=== PATIENT | female | born 1945 | race Caucasian/White ===

== ENCOUNTER 2019-03-16 06:00 | Outpatient (RCR) | payer MEDICARE, MEDICAID, SELFPAY | END 2019-04-15 00:01 | LOC: PULRHB 06:00 | PROVIDERS: Visit Provider Thoracic Surgery (Cardiothoracic Vascular Surgery) | DX: J44.9 Chronic obstructive pulmonary disease, unspecified (principal) | CPT/HCPCS: G0424 ×9 ==

== ENCOUNTER → 2019-04-15 | Outpatient (CLI) | payer MEDICARE, MEDICAID, SELFPAY | PROVIDERS: Visit Provider Orthopaedic Surgery | DX: Z46.89 Encounter for fitting and adjustment of other specified devices (principal); G56.02 Carpal tunnel syndrome, left upper limb | CPT/HCPCS: L3908 ==

== ENCOUNTER 2019-04-16 06:00 | Outpatient (RCR) | payer MEDICARE, MEDICAID, SELFPAY | END 2019-05-16 23:59 | disposition home or self-care (01) | LOC: PULRHB 06:00 | PROVIDERS: PCP Family Medicine; Visit Provider Thoracic Surgery (Cardiothoracic Vascular Surgery) | DX: J44.9 Chronic obstructive pulmonary disease, unspecified (principal) | CPT/HCPCS: G0424 ==

== ENCOUNTER → 2019-06-03 13:00 | Outpatient (BNVA) | payer MEDICARE, MEDICAID, SELFPAY | PROVIDERS: Visit Provider Nurse Practitioner | DX: F31.73 Bipolar disorder, in partial remission, most recent episode manic (principal); F17.211 Nicotine dependence, cigarettes, in remission | CPT/HCPCS: 99213 ==

== ENCOUNTER 2019-07-02 05:46 | Day surgery (SDC) | payer MEDICARE, MEDICAID, SELFPAY ==
[2019-07-01 13:33] VITALS: BMI 27.1
[2019-07-02 06:11] VITALS: BP 169/84; PULSE 64; RESP 18; TEMP 36.1; O2SAT 96
[2019-07-02] MEDS: sodium chloride 0.9% 1,000 ML 30 ML IV (06:15)
[2019-07-02 06:30] LABS: Glucose Point of Care 100 mg/dL (70-110)
--- NOTE | 2019-07-02 06:32 | ANES.PREANE2 ---
Pre-Anesthetic Assessment Pre-Anesthetic Assessment: Height/Weight: Height 1.7 m Weight 78.471 kg Temp Pulse Resp BP Pulse Ox 97 F L 64 18 169/84 96 07/02/19 06:11 07/02/19 06:11 07/02/19 06:11 07/02/19 06:11 07/02/19 06:11 Preop Diagnosis: Left carpal tunnel syndrome Proposed Procedure: Operation Date: 07/02/19 07:00 Proposed Procedures p Left Carpal Tunnel Release [id number] G56.00(Left) - Al Franco MD Last Intake: 22:00 Social: Social History: Tobacco Packs per day: 1 Pack years: 54 Comment: quit 7 months Exam: Pre-Anes Outpt Exam: alert, oriented x 3, clear to auscultation bilaterally and regular rate & rhythm Airway: Submandibular: WNL Cervical ROM: WNL MP: 1 Dentition: False Pulmonary: Pulmonary: COPD CV/HEM: CV/HEM: CAD Comments: stents x 2, last 2001 : Comments: frequency, urgwncy Metabolic: Metabolic: Thyroid Comments: replacement 5y increased 6m Neuropsych: Neuropsych: THOMAS Anesthetic Plan: ASA status: 3 Anesthesia: Regional (specify below) PFSH Anesthesia PFSH: Medical History (Updated 07/01/19 @ 14:48 by Madeline Greene) Bipolar disorder, in partial remission, most recent episode manic Nicotine dependence, cigarettes, in remission Social History Smoking and tobacco status: never smoked Data Anesthesia Other Labs: Laboratory Results - last 48 hr 07/02/19 06:27 POC Glucose 100 Cardiac Studies: No Data to Display
--- NOTE | 2019-07-02 06:58 | W.PM.OPSUD ---
Surgery/Procedure H&P Update DATE OF PROCEDURE: July 02, 2019 DATE H&P PERFORMED: 06/10/19 H&P UPDATE INFORMATION: I have reviewed H&P completed within last 30 days and No changes to prior documentation PREOP DIAGNOSIS: Left carpal tunnel syndrome PLANNED PROCEDURE: Operation Date: 07/02/19 07:00 Proposed Procedures p Left Carpal Tunnel Release [id number] G56.00(Left) - Al Franco MD
[2019-07-02] MEDS: clindamycin 600 MG/50 ML PREMIX 100 MG IV (07:04)
--- NOTE | 2019-07-02 07:47 | PM.OP ---
Operative Report Date of procedure: July 02, 2019 Pre-op Diagnosis: Left carpal tunnel syndrome Post-op diagnosis: same Anesthesia: Local ([place] block) Tourniquet time (min): 20 Findings: No masses or space-occupying lesions were seen within the left carpal tunnel Condition: stable Disposition: same day Procedure: Patient was taken to the operating room and anesthesia provided by the anesthesia service. She was prepped and draped with the arm exposed. A timeout was performed. A 3 cm long incision was made in line with the fourth ray from the distal edge of the carpal tunnel extending proximally. The subcutaneous fat and palmar fascia was divided with a scalpel blade. Under loupe magnification the ulnar neurovascular bundle was identified distally. A hemostat could be passed under the transverse carpal ligament allowing the distal 25% to be divided. A slotted guide was then passed beneath the transverse carpal ligament and the middle 50% divided. Blunt scissors were then passed over the guide freeing the proximal ligament. The tourniquet was deflated. Hemostasis provided with electrocautery. Wound edges were infiltrated with 10 cc of a half percent Marcaine solution. Skin edges were reapproximated with 3-0 Prolene. Sterile dressings were applied. The patient was taken to the recovery room in stable condition
[2019-07-02 07:59] VITALS: BP 191/82; PULSE 70; RESP 16; TEMP 36.1; O2SAT 97
[2019-07-02 08:24] VITALS: BP 198/93; PULSE 65; RESP 16; O2SAT 98
[2019-07-02] MEDS: HYDROcodone-acetaminophen 5-325 mg Tablet 1 TAB PO (08:25)
[2019-07-02 08:30] VITALS: BP 181/86; PULSE 56; RESP 18; O2SAT 98
[2019-07-02 09:02] LABS: Glucose Point of Care 108 mg/dL (70-110)
== END 2019-07-02 08:55 | disposition home or self-care (01) ==
PROVIDERS: Family Provider Nurse Practitioner Family; PCP Nurse Practitioner Family; Visit Provider Orthopaedic Surgery
PROC: (CPT 64721; principal; 2019-07-02 07:00)
DX: G56.02 Carpal tunnel syndrome, left upper limb (principal); Z87.891 Personal history of nicotine dependence; J44.9 Chronic obstructive pulmonary disease, unspecified; I25.10 Atherosclerotic heart disease of native coronary artery without angina pectoris; Z95.1 Presence of aortocoronary bypass graft; Z79.84 Long term (current) use of oral hypoglycemic drugs
CPT/HCPCS: 64721; 12345; 36416; 82962; J2001; J2250; J2704; J3490; J7030

== ENCOUNTER 2019-07-10 17:08 | Emergency (ER) | payer MEDICARE, MEDICAID, SELFPAY ==
[2019-07-10 17:20] VITALS: BP 118/62; PULSE 90; RESP 16; TEMP 37.2; O2SAT 92; BMI 26.7
--- NOTE | 2019-07-10 17:25 | XR_ITS ---
WS: [id number] Left foot, 3 views, 07/10/2019 Clinical Data: injury Comparison: Left foot, 07/03/2013. Findings: No fractures or dislocations are seen. No bone destruction or erosion is noted. The joint spaces and soft tissues are normal. There is a plantar spur and an Achilles spur. XR/XR foot LT min 3V* 14030 Impression: Negative left foot.
--- NOTE | 2019-07-10 17:25 | XR_ITS ---
WS: [id number] Right foot, 3 views, 07/10/2019 Clinical Data: injury Comparison: None. Findings: No fractures or dislocations are seen. No bone destruction or erosion is noted. The joint spaces and soft tissues are normal. There is an Achilles spur. XR/XR foot RT min 3V* [id number] Impression: Negative right foot.
--- NOTE | 2019-07-10 17:25 | W.ED.EXTPRO ---
HPI - Extremity Problem General: Chief complaint: Extremity Injury, Lower Stated complaint: FALL, BI-LAT FEET PAIN Time Seen by Provider: 07/10/19 17:19 Source: patient Mode of arrival: ambulatory Limitations: no limitations History of Present Illness: HPI Narrative: 73-year-old female comes in today for complaints of injury to the right foot and left foot after falling when she tripped over a rail on her bed. Patient reports she has diabetes and has neuropathy in her feet so she often has difficulty with walking and sustaining falls. Patient appears well. Patient appears in no acute distress. Patient is mostly concerned of the right foot which she has some bruising and swelling to the fifth digit. Review of Systems General: Reports: 10 or more systems reviewed and unremarkable except in HPI and below Musc: Reports: joint pain PFSH ED PFSH: Medical History (Updated 07/10/19 @ 18:05 by JOSE Qureshi) Bipolar disorder, in partial remission, most recent episode manic Nicotine dependence, cigarettes, in remission Social History Smoking and tobacco status: former smoker Physical Exam Const: COMMON NORMALS: no apparent distress and oriented x3 GENERAL APPEARANCE: cooperative HENMT: COMMON NORMALS: normocephalic, external ears normal, EAC's normal, TM's normal bilaterally and external nose normal HEAD & SCALP: normal to inspection and normocephalic FACE & SINUS: normal facial exam NOSE: external nose normal GENERAL EAR: hearing not grossly impaired EXTERNAL EAR: Yes external ears normal EXTERNAL AUDITORY CANAL: EAC's normal TYMPANIC MEMBRANE: TM's normal bilaterally MOUTH: oral and palatal mucosa normal THROAT: posterior oropharynx normal Eye: COMMON NORMALS: PERRL and EOMs intact bilaterally PUPIL: Yes PERRL Neck/C-Spine: COMMON NORMALS: full ROM and no lymphadenopathy Lymph: LYMPHATIC: no lymphedema noted Chest: COMMONS NORMALS: inspection of chest normal and palpation of chest normal Resp: COMMON NORMALS: normal respiratory effort and clear to auscultation bilaterally AUSCULTATION: clear to auscultation bilaterally Cardio: COMMON NORMALS: regular rate and regular rhythm RATE: regular rate RHYTHM: regular rhythm GI: COMMON NORMALS: normal to inspection, nondistended, normoactive bowel sounds and non-tender : COMMON NORMALS: Yes no CVA tenderness BLADDER/KIDNEY EXAM: Yes no CVA tenderness Back/Pelvis: COMMON NORMALS: no CVA tenderness and thoracic and lumbar spine normal to inspection Extremity: NARRATIVE EXTREMITY EXAM: Ecchymosis and swelling to the right fifth digit. Prompt capillary refill is noted to the distal tip of the digit. Tenderness is noted to palpation. Pulses are intact. No fever is noted or redness or increased swelling to the lower leg. GENERAL: Yes edema Neuro: COMMON NORMALS: oriented x3, moves all extremities and no focal motor deficits Psych: COMMON NORMALS: mental status grossly normal and cooperative Skin: COMMON NORMALS: no rashes or lesions noted GENERAL SKIN EXAM: no rashes or lesions noted Course Vital Signs: Vital signs: Vital Signs Temperature 98.9 F 07/10/19 17:20 Pulse Rate 90 07/10/19 17:20 Respiratory Rate 16 07/10/19 17:20 Blood Pressure 118/62 07/10/19 17:20 Pulse Oximetry 92 07/10/19 17:20 MDM - Extremity (Nontraumatic) MDM Narrative: Medical decision making narrative: Patient comes in today for injury sustained during a fall this afternoon. Patient reports that she tripped over a metal frame that sticks out from her bed. Patient appears well. Exam notes some ecchymosis and swelling to the fifth digit of the right foot. Pulses are intact. Prompt capillary refill is noted distally to the injured digit. No open skin wound is noted. Differential diagnosis includes fracture, contusion, sprain. X-ray of the left foot and right foot noted no fractures. Reviewed exam with patient with recommendations for treatment and follow-up. Patient family reports understanding of care plan and need for further evaluation and treatment. Discharge Plan Discharge Patient Disposition: Home, Self-Care Clinical Impression: Contusion of foot including toes Qualifiers: Encounter type: initial encounter Laterality: right Qualified Code(s): S90.31XA - Contusion of right foot, initial encounter Fall Qualifiers: Encounter type: initial encounter Qualified Code(s): W19.XXXA - Unspecified fall, initial encounter Condition: Stable Prescriptions: No Action duloxetine [Cymbalta] 60 mg capsule,delayed release(DR/EC) 60 mg PO DAILY RF: 0 amlodipine 2.5 mg tablet 2.5 mg PO DAILY RF: 0 losartan 100 mg tablet 100 mg PO DAILY RF: 0 atorvastatin [Lipitor] 80 mg tablet 80 mg PO DAILY RF: 0 hydrochlorothiazide 25 mg tablet 25 mg PO DAILY RF: 0 levothyroxine 100 mcg capsule 100 mcg PO DAILY RF: 0 metformin 500 mg tablet 500 mg PO BID RF: 0 metoprolol succinate 50 mg capsule,sprinkle,ER 24hr 50 mg PO DAILY RF: 0 trihexyphenidyl 2 mg tablet 2 mg PO BID RF: 0 tolterodine [Detrol] 2 mg tablet 2 mg PO BID RF: 0 melatonin 5 mg capsule 5 mg PO .at bed RF: 0 ropinirole 2 mg tablet 2 mg PO .at bed RF: 0 clopidogrel 75 mg tablet 75 mg PO DAILY 90 Days Qty: 90 RF: 3 gabapentin [Neurontin] 800 mg tablet 800 mg PO TID Qty: 90 RF: 3 [place] 5-325 mg tablet 1 tab PO Q4H PRN (Reason: pain) Qty: 20 RF: 0 Discharge Orders: Discharge Order (Routine); Ordered 07/10/19 Ordered By: Yoan Tamayo Referrals: Cristhian Escalante NP [Primary Care Provider] - Discharge Diet: Usual diet Discharge Activity: Increase activity as tolerated Patient Instructions: Foot Contusion (ED) Activity Restrictions/Additional Instructions: Home and rest Activity as tolerated Wear orthopedic shoe or good supportive shoe Avoid slides and flip-flops Elevate foot as much as possible Use Acetaminophen for pain Use a walker to assist with walking and avoiding further falls Follow-up with primary care in one week Return to ER for high fever or increased swelling and redness to lower leg Coding Level of Care Code ED Equities Trader for Aicha Fwd Exam Comprehensive
[2019-07-10 18:40] VITALS: BP 103/63; PULSE 68; RESP 16; O2SAT 96
== END 2019-07-10 18:48 | disposition home or self-care (01) ==
PROVIDERS: Emergency Provider Nurse Practitioner Family; Family Provider Nurse Practitioner Family; PCP Nurse Practitioner Family
DX: S90.31XA Contusion of right foot, initial encounter (principal); E11.40 Type 2 diabetes mellitus with diabetic neuropathy, unspecified; Z79.84 Long term (current) use of oral hypoglycemic drugs; Z87.891 Personal history of nicotine dependence; W01.0XXA Fall on same level from slipping, tripping and stumbling without subsequent striking against object, initial encounter
CPT/HCPCS: 12345; 73630; 99281; 99283

== ENCOUNTER 2019-07-19 20:36 | Emergency (ER) | payer MEDICARE, MEDICAID, SELFPAY ==
[2019-07-19 20:39] VITALS: BP 140/54; PULSE 82; RESP 20; TEMP 37.8; O2SAT 93; BMI 26.9
--- NOTE | 2019-07-19 20:46 | ED_ITS ---
HPI - Fall General: Chief Complaint: Fall Stated Complaint: left leg pain Time Seen by Provider: 07/19/19 20:37 History of Present Illness: MD complaint: fall Onset (ago): hour(s) Fall from: standing Fall witnessed: no Place fall occurred: home Loss of consciousness: None Prolonged down time: no Symptoms prior to fall: none Context: tripped/slipped Location of injury: buttocks Location of injury - extremities: Left: thigh and knee Severity: moderate Quality: dull Associated symptoms-after fall: Reports no associated symptoms; Denies abdominal pain, chest pain, confusion, headache(s), hematuria, neck pain or vertigo Review of Systems Const: Denies: fever or chills Eyes: Denies: change in vision or blurry vision ENMT: Denies: painful swallowing, nose bleeds, post nasal drip or facial/sinus pain Card: Denies: chest pain, palpitations, irregular heart rhythm or edema Resp: Denies: shortness of breath, productive cough, non-productive cough or wheezing GI: Denies: abdominal pain, nausea or vomiting : Denies: painful urination or blood in urine Musc: Reports: back pain; Denies: neck pain, redness or joint warmth Skin/Breast: Denies: rash, itching or redness Neuro: Denies: headache, dizziness, vertigo or confusion Psych: Denies: anxiety PFSH ED PFSH: Medical History (Updated 07/19/19 @ 22:03 by Angel Muniz DO) Bipolar disorder, in partial remission, most recent episode manic Nicotine dependence, cigarettes, in remission Social History Smoking and tobacco status: former smoker Physical Exam Const: GENERAL APPEARANCE: well developed ORIENTATION/CONSCIOUSNESS: Yes oriented to person, Yes oriented to place and Yes oriented to time HENMT: COMMON NORMALS: normocephalic, external ears normal and external nose normal HEAD & SCALP: normocephalic FACE & SINUS: normal facial exam NOSE: external nose normal and no nasal discharge EXTERNAL EAR: Yes external ears normal MOUTH: tongue normal Eye: COMMON NORMALS: PERRL, EOMs intact bilaterally and conjunctivae normal EYELID: eyelids normal CONJUNCTIVA: Yes conjunctivae normal PUPIL: Yes PERRL Neck/C-Spine: COMMON NORMALS: full ROM GENERAL: No tracheal deviation CERVICAL SPINE: No cervical spine tenderness Chest: COMMONS NORMALS: inspection of chest normal CHEST: No tenderness Resp: COMMON NORMALS: clear to auscultation bilaterally EFFORT & INSPECTION: No tachypneic, No respiratory distress, No retractions, No uses accessory muscles and No tracheal deviation AUSCULTATION: clear to auscultation bilaterally, no rhonchi, no wheezes and lung sounds not diminished Cardio: COMMON NORMALS: regular rate and regular rhythm RATE: regular rate RHYTHM: regular rhythm HEART SOUNDS: no murmurs PERIPHERAL PULSES: radial pulses present GI: INSPECTION: No abdominal distension AUSCULTATION: No hyperactive bowel sounds and No hypoactive bowel sounds PALPATION: No guarding and No rigid PERCUSSION: no dullness to percussion and no tympanic to percussion : COMMON NORMALS: Yes no CVA tenderness BLADDER/KIDNEY EXAM: Yes no CVA tenderness Back/Pelvis: COMMON NORMALS: no CVA tenderness Extremity: LEFT LOWER EXTREMITY: Yes hip joint (Tender to palpation laterally and anteriorly. Mild pain with logroll test.) and Yes knee joint (No effusion. Mild diffuse tenderness. No deformity. Can flex.) Neuro: SENSORIUM/ORIENTATION: Yes oriented to person, Yes oriented to place and Yes oriented to time Psych: COMMON NORMALS: mental status grossly normal Skin: COMMON NORMALS: no rashes or lesions noted GENERAL SKIN EXAM: no rash es or lesions noted Course Vital Signs: Vital signs: Vital Signs Temperature 100.0 F H 07/19/19 20:39 Pulse Rate 82 07/19/19 20:39 Respiratory Rate 20 H 07/19/19 20:39 Blood Pressure 140/54 07/19/19 20:39 Pulse Oximetry 93 07/19/19 20:39 MDM - Fall MDM Narrative: Medical decision making narrative: 73-year-old lady with a mechanical fall at home. Trouble bearing weight following. Femur x-ray does not show a hip fracture. At first, it was thought there may be a slight avulsion of the greater trochanter, but this was present on a prior film from 2013. Knee x-ray is negative for fracture. Sacrum x-ray is also negative for acute fracture. She will be allowed home. Discharge Plan Discharge Patient Disposition: Home, Self-Care Clinical Impression: Contusion of hip Qualifiers: Encounter type: initial encounter Laterality: left Qualified Code(s): S70.02XA - Contusion of left hip, initial encounter Contusion of knee Qualifiers: Encounter type: initial encounter Laterality: left Qualified Code(s): S80.02XA - Contusion of left knee, initial encounter Condition: Stable Prescriptions: New ketorolac 10 mg tablet 10 mg PO TID PRN (Reason: pain) Qty: 10 RF: 0 No Action duloxetine [Cymbalta] 60 mg capsule,delayed release(DR/EC) 60 mg PO DAILY RF: 0 amlodipine 2.5 mg tablet 2.5 mg PO DAILY RF: 0 losartan 100 mg tablet 100 mg PO DAILY RF: 0 atorvastatin [Lipitor] 80 mg tablet 80 mg PO DAILY RF: 0 hydrochlorothiazide 25 mg tablet 25 mg PO DAILY RF: 0 levothyroxine 100 mcg capsule 100 mcg PO DAILY RF: 0 metformin 500 mg tablet 500 mg PO BID RF: 0 metoprolol succinate 50 mg capsule,sprinkle,ER 24hr 50 mg PO DAILY RF: 0 trihexyphenidyl 2 mg tablet 2 mg PO BID RF: 0 tolterodine [Detrol] 2 mg tablet 2 mg PO BID RF: 0 melatonin 5 mg capsule 5 mg PO .at bed RF: 0 ropinirole 2 mg tablet 2 mg PO .at bed RF: 0 clopidogrel 75 mg tablet 75 mg PO DAILY 90 Days Qty: 90 RF: 3 gabapentin [Neurontin] 800 mg tablet 800 mg PO TID Qty: 90 RF: 3 [place] 5-325 mg tablet 1 tab PO Q4H PRN (Reason: pain) Qty: 20 RF: 0 Discharge Orders: Discharge Order (Routine); Ordered 07/19/19 Ordered By: Angel Muniz Referrals: Cristhian Escalante NP [Primary Care Provider] - 4-7 days Discharge Diet: Usual diet Discharge Activity: Increase activity as tolerated Patient Instructions: Contusion in Adults (ED) Activity Restrictions/Additional Instructions: You may need a walker to help you bear weight for several days. Return for worsening pain despite treatment, more frequent falls, other concerning symptoms. Coding Level of Care Code ED Physician Relations Representative for Aicha Jean Baptiste
--- NOTE | 2019-07-19 20:52 | XRR_ITS ---
PROCEDURE INFORMATION: Exam: XR Sacrum and Coccyx, 2 or More Views Exam date and time: 07/19/2019 9:32 PM Age: 73 years old Clinical indication: Injury or trauma; Fall; Initial encounter; Abrasion TECHNIQUE: Imaging protocol: XR of the sacrum and coccyx, 2 or more views. COMPARISON: CR Pelvis w Latera Hip LEFT [id number] 07/03/2013 6:53 PM FINDINGS: Bones/joints: Postoperative changes are seen within the lower lumbar spine. Soft tissues: Normal. XR/XR sacrum coccyx min 2V [id number] IMPRESSION: There are no acute osseous findings.
--- NOTE | 2019-07-19 20:52 | XRR_ITS ---
PROCEDURE INFORMATION: Exam: XR Left Femur Exam date and time: 07/19/2019 9:32 PM Age: 73 years old Clinical indication: Injury or trauma; Fall; Initial encounter; Blunt trauma; Hip; Left TECHNIQUE: Imaging protocol: XR Left femur. Views: 2 views. COMPARISON: No relevant prior studies available. FINDINGS: Bones/joints: Unremarkable. No acute fracture. Soft tissues: Unremarkable. XR/XR femur LT min 2V* [id number] IMPRESSION: No acute findings.
--- NOTE | 2019-07-19 20:52 | XRR_ITS ---
PROCEDURE INFORMATION: Exam: XR Left Knee Exam date and time: 07/19/2019 9:30 PM Age: 73 years old Clinical indication: Injury or trauma; Fall; Initial encounter; Abrasion; Knee; Left TECHNIQUE: Imaging protocol: XR Left knee. Views: 3 views. COMPARISON: No relevant prior studies available. FINDINGS: Bones/joints: Normal. Soft tissues: Soft tissue defects are seen along the medial aspect of the left knee.. XR/XR knee LT 3V* [id number] IMPRESSION: No acute osseous findings.
[2019-07-19 22:31] VITALS: BP 141/73; PULSE 80; RESP 18; O2SAT 95
== END 2019-07-19 22:33 | disposition home or self-care (01) ==
PROVIDERS: Emergency Provider Emergency Medicine; Family Provider Nurse Practitioner Family; PCP Nurse Practitioner Family
DX: S70.02XA Contusion of left hip, initial encounter (principal); S80.02XA Contusion of left knee, initial encounter; W01.0XXA Fall on same level from slipping, tripping and stumbling without subsequent striking against object, initial encounter; F31.73 Bipolar disorder, in partial remission, most recent episode manic; F17.211 Nicotine dependence, cigarettes, in remission
CPT/HCPCS: 12345; 72220; 73552; 73562; 99281; 99283

== ENCOUNTER → 2019-08-29 08:26 | Outpatient (BNVA) | payer MEDICARE, MEDICAID, SELFPAY | PROVIDERS: Family Provider Nurse Practitioner Family; PCP Nurse Practitioner Family; Visit Provider Orthopaedic Surgery | DX: M79.642 Pain in left hand (principal); M19.042 Primary osteoarthritis, left hand | CPT/HCPCS: 73130 ==

== ENCOUNTER → 2019-09-02 12:28 | Outpatient (BNVA) | payer MEDICARE, MEDICAID, SELFPAY | PROVIDERS: Family Provider Nurse Practitioner Family; PCP Nurse Practitioner Family; Visit Provider Specialist | DX: G24.01 Drug induced subacute dyskinesia (principal); G24.4 Idiopathic orofacial dystonia; R91.8 Other nonspecific abnormal finding of lung field; E03.9 Hypothyroidism, unspecified; F31.73 Bipolar disorder, in partial remission, most recent episode manic; Z79.02 Long term (current) use of antithrombotics/antiplatelets; Z79.891 Long term (current) use of opiate analgesic; Z87.891 Personal history of nicotine dependence | CPT/HCPCS: 99214 ==

== ENCOUNTER → 2019-09-29 10:55 | Outpatient (BNVA) | payer MEDICARE, MEDICAID, SELFPAY | PROVIDERS: PCP Nurse Practitioner Family; Visit Provider Obstetrics & Gynecology | DX: N39.46 Mixed incontinence (principal) | CPT/HCPCS: 80053 ==

== ENCOUNTER 2019-10-01 11:03 | Outpatient (CLI) | payer MEDICARE, MEDICAID, SELFPAY ==
--- NOTE | 2019-10-01 11:16 | CT_ITS ---
WS: [id number] CT CHEST TECHNIQUE: Contrast enhanced CT of the chest with coronal and sagittal reformatted images. CLINICAL INFORMATION: LUNG MASS COMPARISON: CT January 10, 2019 DLP: 790.[address] scans at [facility] use at least one of these dose optimization techniques: automat ed exposure control; mA and/or kV adjustment per patient size (includes targeted exams where dose is matched to clinical indication); or iterative reconstruction. FINDINGS: Chronic emphysematous change with hyperinflation. Stable lobulated nodule in the right upper lobe kasia suring 6 x 6 x 7mm unchanged. Stable 5 mm nodule in the left lower lobe. No acute pulmonary infiltrat es. No consolidation or pleural fluid. Slight prominent right hilar lymph node is unchanged measuring 1.6 x 1.2 CM. No progressive mediastin al or hilar lymphadenopathy. Vascular calcification including coronary. Normal caliber thoracic aorta . No axillary lymphadenopathy. Prior cholecystectomy. Liver and spleen appear normal. Adrenal glands are normal. Bilateral renal cys ts. Chronic anterior wedging at T3 and T4 is stable. CT/CT chest w con* [id number] IMPRESSION: 1. Stable right upper lobe pulmonary nodule measuring 6 x 6 x 7 mm. Recommend 6 month follow-up. 2. Noncalcified nodule in the left lower lobe measuring 5 mm is stable. 3. Stable prominent right hilar lymph node described above. No progressive lym phadenopathy. 4. Advanced chronic emphysematous change.
[2019-10-01] MEDS: iodixanol 320 mg/mL 100mL Btl IV (12:32)
[2019-10-01 12:33] LABS: Blood Urea Nitrogen 17 mg/dL (8-23)
== END 2019-10-01 11:04 | disposition home or self-care (01) ==
LOC: RADWPI 11:10
PROVIDERS: Family Provider Nurse Practitioner Family; PCP Nurse Practitioner Family; Visit Provider Thoracic Surgery (Cardiothoracic Vascular Surgery)
DX: R91.8 Other nonspecific abnormal finding of lung field (principal); R91.1 Solitary pulmonary nodule; J43.9 Emphysema, unspecified
CPT/HCPCS: 71260; 82565; 84520; 99213; Q9967

== ENCOUNTER 2019-10-30 06:00 | Outpatient (RCR) | payer MEDICARE, MEDICAID, SELFPAY | END 2019-11-14 23:59 | disposition home or self-care (01) | LOC: SOT 06:00 | PROVIDERS: PCP Nurse Practitioner Family; Referring Provider Orthopaedic Surgery; Visit Provider Orthopaedic Surgery | DX: Z47.89 Encounter for other orthopedic aftercare (principal) | CPT/HCPCS: 97165 ==

== ENCOUNTER 2019-11-15 06:00 | Outpatient (RCR) | payer MEDICARE, MEDICAID, SELFPAY | END 2019-12-01 23:00 | disposition home or self-care (01) | LOC: SOT 06:00 | PROVIDERS: PCP Nurse Practitioner Family; Referring Provider Orthopaedic Surgery; Visit Provider Orthopaedic Surgery | DX: Z47.89 Encounter for other orthopedic aftercare (principal) | CPT/HCPCS: 97018; 97110; L3924 ==

== ENCOUNTER 2020-01-27 07:41 | Outpatient (CLI) | payer MEDICARE, MEDICAID, SELFPAY ==
--- NOTE | 2020-01-27 07:50 | US_ITS ---
WS: [id number] RENAL ULTRASOUND HISTORY: CHRONIC KIDNEY DZ STAGE 2 COMPARISON: None available. TECHNIQUE: 2-D and color Doppler imaging of the kidney submitted. Right kidney: 10.2 cm x 5.2 cm x 4.6 cm. Normal echogenicity with no hydronephrosis or mass. Left kidney: 10.2 cm x 5.4 cm x 4.6 cm. Normal size kidney with normal echogenicity. Cortical cyst in the mid kidney measures 1.2 x 1.2 x 1.3 cm. Aorta: Normal. Urinary Bladder: Normal distention. US/US renal BI* [id number] IMPRESSION: 1. Normal size kidneys are normal echogenicity. 2. Cortical cyst mid LEFT kidney with a maximum diameter 1.3 cm.
== END 2020-01-27 07:42 | disposition home or self-care (01) ==
LOC: US 07:47
PROVIDERS: PCP Nurse Practitioner Family; Visit Provider Registered Nurse
DX: N18.2 Chronic kidney disease, stage 2 (mild) (principal); N28.1 Cyst of kidney, acquired
CPT/HCPCS: 76770

== ENCOUNTER → 2020-02-03 13:19 | Outpatient (BNVA) | payer MEDICARE, MEDICAID, SELFPAY | PROVIDERS: PCP Nurse Practitioner Family; Visit Provider Obstetrics & Gynecology | DX: R33.9 Retention of urine, unspecified (principal) | CPT/HCPCS: 81000 ==

== ENCOUNTER → 2020-03-03 13:01 | Outpatient (BNVA) | payer MEDICARE, MEDICAID, SELFPAY | PROVIDERS: PCP Nurse Practitioner Family; Visit Provider Specialist | DX: R25.1 Tremor, unspecified (principal); R91.8 Other nonspecific abnormal finding of lung field; Z91.81 History of falling; Z87.891 Personal history of nicotine dependence | CPT/HCPCS: 99213 ==

== ENCOUNTER 2020-03-29 14:00 | Outpatient (CLI) | payer MEDICARE, MEDICAID, SELFPAY ==
--- NOTE | 2020-03-29 14:07 | XR_ITS ---
WS: [id number] Bone mineral density performed on a Love[employer], today Clinical data: STATUS, ASYMPTOMATIC POSTMENOPAUSAL COMPARISON STUDY: None. Findings: . Measurement of the left hip reveals a bone mineral density of 0.884 g/cm2 with a young adult T score of -1.0. Measurement of the right hip reveals the bone mineral density of 0.886 g/cm2 for young adult T score of -1.0. XR/XR DEXA axial skeleton* 20024 Impression: The bone mineral density of both hips is normal.
--- NOTE | 2020-03-29 14:56 | MM_ITS ---
WS: [id number] BILATERAL DIGITAL SCREENING MAMMOGRAPHY WITH CAD CLINICAL INFORMATION: SCREENING HISTORY: Screening mammogram. No current complaints. COMPARISON: September 20, 2018 TECHNIQUE: Bilateral CC and MLO views. FINDINGS: History of bilateral breast reduction Scattered fibroglandular densities bilaterally. Vascular calcification. Fat necrosis right breast. No suspicious focal mass, asymmetry, calcifications, or architectural distortion. No evidence of malign chika. MM/[place] [id number] IMPRESSION: BI-RADS: 2-Benign FOLLOW UP: 1 Year Follow-up Recommend return to annual screening mammography.
== END 2020-03-29 14:01 | disposition home or self-care (01) ==
LOC: RADSHAW 14:06
PROVIDERS: PCP Nurse Practitioner Family; Visit Provider Nurse Practitioner Family
DX: Z12.31 Encounter for screening mammogram for malignant neoplasm of breast (principal); Z78.0 Asymptomatic menopausal state
CPT/HCPCS: 77067; 77080

== ENCOUNTER 2020-04-02 11:10 | Outpatient (CLI) | payer MEDICARE, MEDICAID, SELFPAY ==
[2020-04-02 11:51] LABS: Basophils % 0.4 %; Eosinophils # 0.1 10^3/uL (0.0-0.8); Eosinophils % 1.3 %; Hematocrit 38.2 % (37.0-47.0); Lymphocytes # 1.4 10^3/uL (0.8-4.8); Lymphocytes % 30.4 %; Mean Corpuscular HGB Conc 31.4 g/dL (30.0-36.0); Mean Corpuscular Hemoglobin 28.6 pg (28.0-34.0); Mean Corpuscular Volume 91.2 fL (81-99); Monocytes # 0.4 10^3/uL (0.2-0.9); Monocytes % 9.1 %; Neutrophils # 2.63 10^3/uL (1.8-7.7); Neutrophils % 58.6 %; Nucleated Red Blood Cells % 0 %; Platelet Count 219 10^3/cmm (130-400); Red Blood Count 4.19 10^6/uL (4.1-5.3); Red Cell Distribution Width 13.8 % (12.1-15.1); White Blood Count 4.5 10^3/uL (4.0-10.0)
[2020-04-02 12:24] LABS: Creatinine Urine, Random 81 mg/dL (28-217); Microalbum Creatinine Ratio Ur 37 mg/dL (0-20); Microalbumin Random Urine 3 ug/dL (0-20)
[2020-04-02 12:32] LABS: 25 Hydroxy Vitamin D 30 ng/mL (30-100); Albumin Level 3.9 g/dL (3.5-5.2); Anion Gap 14.1 (5-19); Blood Urea Nitrogen 16 mg/dL (8-23); Calcium 8.9 mg/dL (8.5-10.5); Carbon Dioxide 26 mmol/L (22-29); Chloride 101 mmol/L (98-107); Glucose 129 mg/dL (65-115); Phosphorus 2.9 mg/dL (2.5-4.5); Potassium 4.1 mmol/L (3.5-5.1); Sodium 137 mmol/L (136-145)
[2020-04-02 12:37] LABS: Calcium 9.2 mg/dL (8.5-10.5)
[2020-04-02 12:57] LABS: Parathyroid Hormone 42.7 pg/mL (15-65)
== END 2020-04-02 11:11 | disposition home or self-care (01) ==
PROVIDERS: PCP Nurse Practitioner Family; Visit Provider Internal Medicine Nephrology
DX: N18.30 Chronic kidney disease, stage 3 unspecified (principal); E11.9 Type 2 diabetes mellitus without complications; E03.9 Hypothyroidism, unspecified; I10 Essential (primary) hypertension; E78.5 Hyperlipidemia, unspecified; I25.10 Atherosclerotic heart disease of native coronary artery without angina pectoris
CPT/HCPCS: 36415; 80069; 82044; 82306; 82310; 83970; 85025

== ENCOUNTER → 2020-04-14 11:00 | Outpatient (BNVA) | payer MEDICARE, MEDICAID, SELFPAY | PROVIDERS: PCP Nurse Practitioner Family; Visit Provider Surgery | DX: Z20.828 Contact with and (suspected) exposure to other viral communicable diseases (principal) | CPT/HCPCS: 87635 ==

== ENCOUNTER 2020-04-20 08:45 | Day surgery (SDC) | payer MEDICARE, MEDICAID, SELFPAY ==
[2020-04-20 09:16] VITALS: BP 177/82; PULSE 75; RESP 18; TEMP 36.3; O2SAT 94
[2020-04-20] MEDS: sodium chloride 0.9% 1,000 ML 30 ML IV (09:24)
[2020-04-20 09:27] LABS: Glucose Point of Care 126 mg/dL (70-110)
--- NOTE | 2020-04-20 10:08 | ANES.PREANE2 ---
Pre-Anesthetic Assessment Pre-Anesthetic Assessment: Height/Weight: Height 1.7 m Weight 80.739 kg Temp Pulse Resp BP Pulse Ox 97.3 F L 75 18 177/82 94 04/20/20 09:16 04/20/20 09:16 04/20/20 09:16 04/20/20 09:16 04/20/20 09:16 Preop Diagnosis: screening colonoscopy Proposed Procedure: Operation Date: 04/20/20 09:45 Proposed Procedures p Colonoscopy 35166 z86.010(Not Applicable) - Sai Calvillo MD Familial anesthetic complications: None Was Beta Salvador taken within 24 hours: Yes Last intake: Intake Last Liquid Date 04/19/20 Last Liquid Time 23:00 Last Solid Date 04/18/20 Last Solid Time 18:00 Social: Social History: No alcohol and No tobacco Comment: former smoker Airway: Cervical ROM: WNL MP: 3 Dentition: False Pulmonary: Pulmonary: COPD CV/HEM: CV/HEM: CAD and HTN Comments: PTCA > 1 year ago Plavix stopped on GI: GI: GERD Metabolic: Metabolic: DM Musc/skel: Comments: Lupus Neuropsych: Comments: parkinsons tremor Anesthetic Plan: ASA status: 3 Anesthesia: MAC Risk of > 500 ml blood loss (7ml/kg in children): No Meds/Allergies Current Medications: Current Medications Generic Name Dose Route Start Last Admin Trade Name Freq PRN Reason Stop Dose Admin Sodium Chloride 1,000 mls @ 30 ml s/hr 04/20/20 09:00 04/20/20 09:24 Sodium Chloride 0.9% IV 04/21/20 08:59 30 mls/hr .Q24H ANNIA Administration PFSH Anesthesia PFSH: Medical History Bipolar disorder, in partial remission, most recent episode manic Chronic kidney disease (CKD) Chronic obstructive pulmonary disease Coronary artery disease Patient with stents Diabetes mellitus Hyperlipidemia Hypertension Hypothyroidism Incidental pulmonary nodule, > 3mm and < 8mm Lupus Surgical History History of back surgery (01/17/13) History of bilateral breast reduction surgery History of bilateral tubal ligation History of bladder surgery (~1989) Vaginal Urethral sling with possible anchors . Performed by Dr. Salas at [facility] [place]. History of cholecystectomy History of colonoscopy with polypectomy (~2016) History of coronary angioplasty with insertion of stent 2006: 2 stents. 2008: 2 stents. History of dilation and curettage (~1982) History of hand surgery Repair right thumb fracture History of hemorrhoidectomy History of right cataract extraction History of vaginal hysterectomy Still has ovaries. Performed in [place], [place]. Performed due to bleeding. Family History Brother Heart disease Hypertension Hypercholesteremia Diabetes Sister Thyroid condition Denies family history of Colon cancer Ovarian cancer Clotting disorder Breast cancer Anesthesia complication Bleeding disorder Uterine cancer Stroke Social History Smoking and tobacco status: former smoker Quit status (tobacco): has quit using tobacco Year quit tobacco: 2019 - 1.5 PPD x 50 Years Alcohol intake: never Lives independently: Yes Marital status: History of recent travel: No Data Anesthesia Other Labs: Laboratory Results - last 48 hr 04/20/20 09:21 POC Glucose 126 H Cardiac Studies: No Data to Display
--- NOTE | 2020-04-20 11:52 | W.PM.OPSUD ---
Surgery/Procedure H&P Update DATE OF PROCEDURE: April 20, 2020 DATE H&P PERFORMED: 03/26/20 H&P UPDATE INFORMATION: I have reviewed H&P completed within last 30 days, I have examined patient prior to procedure and No changes to prior documentation PREOP DIAGNOSIS: screening colonoscopy PLANNED PROCEDURE: Operation Date: 04/20/20 09:45 Proposed Procedures p Colonoscopy 65227 [id number](Not Applicable) - Sai Calvillo MD
[2020-04-20 12:55] VITALS: BP 106/56; PULSE 63; RESP 18; TEMP 36.6; O2SAT 100
[2020-04-20 13:12] VITALS: BP 138/64; RESP 18
--- NOTE | 2020-04-20 18:55 | ANE.PACU2 ---
Inpatient post-anesthesia follow up: Airway intact: Yes Vital signs: Temperature 98 F Pulse Rate 63 Respiratory Rate 18 Blood Pressure 138/64 Pulse Oximetry 100 Oxygen Delivery Me thod Room Air Oxygen Flow Rate Fraction of Inspir ed Oxygen Hydration adequate: Yes Nausea and vomiting: No Pain level: 1 Mental status: Baseline
== END 2020-04-20 13:25 | disposition home or self-care (01) ==
PROVIDERS: PCP Nurse Practitioner Family; Visit Provider Surgery
PROC: 0DJD8ZZ Inspection of Lower Intestinal Tract, Via Natural or Artificial Opening Endoscopic (ICD-10-PCS; CPT 45378; principal; 2020-04-20 09:45)
DX: Z12.11 Encounter for screening for malignant neoplasm of colon (principal); Z86.010 Personal history of colon polyps; K57.30 Diverticulosis of large intestine without perforation or abscess without bleeding; J44.9 Chronic obstructive pulmonary disease, unspecified; I25.10 Atherosclerotic heart disease of native coronary artery without angina pectoris; Z79.02 Long term (current) use of antithrombotics/antiplatelets; K21.9 Gastro-esophageal reflux disease without esophagitis; E11.22 Type 2 diabetes mellitus with diabetic chronic kidney disease; I12.9 Hypertensive chronic kidney disease with stage 1 through stage 4 chronic kidney disease, or unspecified chronic kidney disease; N18.9 Chronic kidney disease, unspecified; E03.9 Hypothyroidism, unspecified; Z87.891 Personal history of nicotine dependence
CPT/HCPCS: 12345; 36416; 45378; 82962; J2704; J7030

== ENCOUNTER → 2020-04-21 07:59 | Outpatient (BNVA) | payer MEDICARE, MEDICAID, SELFPAY | PROVIDERS: PCP Nurse Practitioner Family; Visit Provider Nurse Practitioner | DX: F31.73 Bipolar disorder, in partial remission, most recent episode manic (principal); F33.2 Major depressive disorder, recurrent severe without psychotic features | CPT/HCPCS: 99213 ==

== ENCOUNTER 2020-04-23 21:32 | Emergency (ER) | payer MEDICARE, MEDICAID, SELFPAY ==
[2020-04-23 21:36] VITALS: BP 184/89; PULSE 84; RESP 18; TEMP 36.9; O2SAT 94; BMI 29.7
[2020-04-23 21:51] VITALS: PULSE 81; RESP 16; O2SAT 92
--- NOTE | 2020-04-23 21:53 | CTR_ITS ---
PROCEDURE INFORMATION: Exam: CT Head Without Contrast Exam date and time: 04/23/2020 9:57 PM Age: 74 years old Clinical indication: Pain; Headache; Additional info: Frontal headache, hypertensive TECHNIQUE: Imaging protocol: Computed tomography of the head without contrast. Radiation optimization: All CT scans at this facility use at least one of these dose optimization techniques: automated exposure control; mA and/or kV adjustment per patient size (includes targeted exams where dose is matched to clinical indication); or iterative reconstruction. ADDITIONAL STUDY INFORMATION: Total DLP (mGy-cm): 783.26 COMPARISON: CT head wo con* [id number] 12/23/2014 11:10 PM FINDINGS: Probable moderate-sized arachnoid cyst in posterior aspect of posterior cranial fossa and tiny one in anterior aspect right of right middle cranial fossa. There is mild low density in the bilateral periventricular white matter which may represent chronic small vessel ischemic disease in the appropriate clinical setting. There are prominent intracranial arterial calcifications. Ventricles do not appear significantly dilated. No depressed calvarial fracture is demonstrated. Visualized paranasal sinuses and mastoid air cells demonstrate no significant opacification. CT/CT head wo con* [id number] IMPRESSION: Probable chronic ischemic changes as discussed above. Probable moderate-sized arachnoid cyst in posterior aspect of posterior cranial fossa and tiny one in anterior aspect right of right middle cranial fossa. Radiation Dose CTDIVOL = (mGy): DLP = 783.26 (mGy-cm)
--- NOTE | 2020-04-23 21:55 | ED_ITS ---
HPI - Headache General: Chief Complaint: Headache Stated Complaint: headache / bg 264 Time Seen by Provider: 04/23/20 21:49 Source: patient Mode of arrival: ambulatory Limitations: no limitations History of Present Illness: HPI Narrative: 74-year-old female comes in today with complaints of headache. Patient reports having a headache since 1:00 this afternoon. Patient had talked to her niece who is a physician and stated that she may be having a stroke so she recommended she come to the emergency room to be evaluated. Since arriving to the ER patient reports that her headache has improved. Patient appears well. Patient appears no acute distress. Patient has a history of hypertension, COPD, diabetes, dyskinesia, and bipolar disorder. MD elicited complaint: headache Review of Systems General: Reports: 10 or more systems reviewed and unremarkable except in HPI and below Neuro: Reports: headache(s) PFSH ED PFSH: Medical History Bipolar disorder, in partial remission, most recent episode manic Chronic kidney disease (CKD) Chronic obstructive pulmonary disease Coronary artery disease Patient with stents Diabetes mellitus Hyperlipidemia Hypertension Hypothyroidism Incidental pulmonary nodule, > 3mm and < 8mm Lupus Surgical History History of back surgery (01/17/13) History of bilateral breast reduction surgery History of bilateral tubal ligation History of bladder surgery (~1989) Vaginal Urethral sling with possible anchors . [place] Sal[place] [facility] [place] History of cholecystectomy History of colonoscopy with polypectomy (~04/20/20) 2017 History of coronary angioplasty with insertion of stent 2006: 2 stents. 2008: 2 stents. History of dilation and curettage (~1982) History of hand surgery Repair right thumb fracture History of hemorrhoidectomy History of right cataract extraction History of vaginal hysterectomy Still has ovaries. Performed in [place], [place]. Performed due to bleeding. Family History Brother Heart disease Hypertension Hypercholesteremia Diabetes Sister Thyroid condition Denies family history of Colon cancer Ovarian cancer Clotting disorder Breast cancer Anesthesia complication Bleeding disorder Uterine cancer Stroke Social History Smoking and tobacco status: former smoker Quit status (tobacco): has quit using tobacco Year quit tobacco: 2019 - 1.5 PPD x 50 Years Smoking risk assessment/counseling performed?: No Alcohol intake: never Counseling given: No Counseling given: No Lives independently: Yes Household members: none Marital status: Current occupational status: retired History of recent travel: No Current gender identity: Male Physical Exam Const: COMMON NORMALS: no acute distress, patient oriented x3 and alert GENERAL APPEARANCE: cooperative HENMT: COMMON NORMALS: normocephalic, TM's normal bilaterally and Normal external nose present HEAD & SCALP: normal to inspection and normocephalic NOSE: Normal external nose present TYMPANIC MEMBRANE: TM's normal bilaterally MOUTH: Normal oral and palatal mucosa present Eye: GENERAL EYE: appearance normal, both eyes and all related structures Neck/C-Spine: COMMON NORMALS: full ROM and no meningeal signs Chest: COMMONS NORMALS: normal inspection of the chest Resp: COMMON NORMALS: normal respiratory effort EFFORT & INSPECTION: Yes able to speak in complete sentences Cardio: COMMON NORMALS: regular rate and regular rhythm RATE: regular rate RHYTHM: regular rhythm GI: COMMON NORMALS: non-tender Back/Pelvis: COMMON NORMALS: thoracic and lumbar spine normal to inspection Extremity: COMMON NORMALS: normal to inspection Neuro: COMMON NORMALS: patient oriented x3 and moves all extremities SENSORIUM/ORIENTATION: Yes alert MENINGEAL SIGNS: Yes no meningeal signs COORDINATION/BALANCE: inmzrb-uu-aada test normal SPEECH: speech normal SENSORY EXAM: Yes extremities MOTOR EXAM: 5/5 motor strength present throughout COORDINATION: [id number] test normal Psych: COMMON NORMALS: mental status grossly normal and cooperative Skin: COMMON NORMALS: no rashes or lesions noted GENERAL SKIN EXAM: no rashes or lesions noted Course Vital Signs: Vital signs: Vital Signs Temperature 98.4 F 04/23/20 21:36 Pulse Rate 81 04/23/20 21:51 Respiratory Rate 16 04/23/20 21:51 Blood Pressure 184/89 04/23/20 21:36 Pulse Oximetry 92 04/23/20 21:51 MDM - Headache MDM Narrative: Medical decision making narrative: Patient comes in today for concerns of headache that started about 1:00 this afternoon. Patient had talked to her niece and she suggested she come to the ER for concerns of stroke. Patient has no weakness and has been ambulating without difficulty. Patient reports arrival to the ER improvement in her headache. Exam noted no musculoskeletal weakness or focal neural deficits. Respirations are even lungs are clear to auscultation. Patient appears well. Vital signs noted some elevation in blood pressure. Differential diagnosis includes CVA, TIA, headache, migraine. CT of the head was negative for any acute abnormality. Laboratory values were remarkable for some low potassium. Patient was given 40 mEq of potassium. Patient was encouraged to drink plenty of fluids and we will leave her on potassium daily for next 10 days. Patient was recommended to follow-up with primary care for recheck. Patient's headache had resolved prior to discharge. Blood pressure did come down to 140s systolic. Patient reported understanding of care plan and agreed to plan. Lab Data: Labs: Lab Results 04/23/20 04/23/20 04/23/20 Range/Units 21:42 21:45 21:45 WBC 4.9 (4.0-10.0) 10^3/ uL RBC 4.33 (4.1-5.3) 10^6/u L Hgb 12.6 (11.5-15.3) g/dL Hct 38.8 (37.0-47.0) % MCV 89.6 (81-99) fL MCH 29.1 (28.0-34.0) pg MCHC 32.5 (30.0-36.0) g/dL RDW 13.6 (12.1-15.1) % Plt Count 218 (130-400) 10^3/c mm MPV 9.6 (7.4-10.4) fL Neut % (Auto) 60.9 % Lymph % (Auto) 30.8 % [place] % (Auto) 6.5 % Eos % (Auto) 1.0 % Baso % (Auto) 0.6 % Neut # (Auto) 3.00 (1.8-7.7) 10^3/u L Lymph # (Auto) 1.5 (0.8-4.8) 10^3/u L [place] # (Auto) 0.3 (0.2-0.9) 10^3/u L Eos # (Auto) 0.1 (0.0-0.8) 10^3/u L Baso # (Auto) 0.0 (0.0-0.1) 10^3/u L Nucleated RBC % (a uto) 0 % Nucleated RBCs # 0.0 /100WBC Sodium 134 L (136-145) mmol/L Potassium 3.0 L (3.5-5.1) mmol/L Chloride 98 (98-107) mmol/L Carbon Dioxide 24 (22-29) mmol/L Anion Gap 15.0 (5-19) BUN 14 (8-23) mg/dL Creatinine 1.1 H (0.5-0.9) mg/dL GFR Calculation Not Reportable Glucose 268 H (65-115) mg/dL POC Glucose 235 H (70-110) mg/dL Calculated Osmolal ity 288 (285-295) mOsm/k g Calcium 9.1 (8.5-10.5) mg/dL Total Bilirubin 0.3 (0.15-1.2) mg/dL AST 13 (0-32) U/L ALT 16 (0-33) U/L Alkaline Phosphata se 110 H (35-105) IU/L Total Protein 7.4 (6.6-8.7) g/dL Albumin 3.8 (3.5-5.2) g/dL Globulin 3.6 (1.3-4.6) g/dL Discharge Plan Discharge Patient Disposition: Home Clinical Impression: Hypokalemia Headache Qualifiers: Headache type: unspecified Headache chronicity pattern: acute headache Intractability: not intractable Qualified Code(s): R51.9 - Headache, unspecified Hypertension Qualifiers: Hypertension type: unspecified Qualified Code(s): I10 - Essential (primary) hypertension Condition: Stable Prescriptions: New potassium chloride 10 mEq tablet extended release 10 meq PO DAILY Qty: 14 RF: 0 No Action cholecalciferol (vitamin D3) 50 mcg (2,000 unit) capsule 50 mcg PO DAILY RF: 0 duloxetine [Cymbalta] 60 mg capsule,delayed release(DR/EC) 60 mg PO DAILY Qty: 30 RF: 5 amlodipine 2.5 mg tablet 2.5 mg PO DAILY RF: 0 losartan 100 mg tablet 100 mg PO DAILY RF: 0 atorvastatin [Lipitor] 80 mg tablet 80 mg PO DAILY RF: 0 hydrochlorothiazide 25 mg tablet 25 mg PO DAILY RF: 0 levothyroxine 100 mcg capsule 100 mcg PO DAILY RF: 0 metformin 500 mg tablet 500 mg PO BID RF: 0 metoprolol succinate 50 mg capsule,sprinkle,ER 24hr 50 mg PO DAILY RF: 0 tolterodine [Detrol] 2 mg tablet 2 mg PO BID RF: 0 melatonin 5 mg capsule 7.5 mg PO BEDTIME RF: 0 Bevespi Aerosphere 9-4.8 mcg HFA aerosol inhaler 2 puff inhalation BID RF: 0 albuterol sulfate [ProAir HFA] 90 mcg/actuation HFA aerosol inhaler 2 puff inhalation Q6H PRNRF: 0 oxybutynin chloride 5 mg tablet extended release 24hr 5 mg PO DAILY Qty: 30 RF: 0 clopidogrel 75 mg tablet 75 mg PO DAILY 90 Days Qty: 90 RF: 3 aripiprazole 2 mg tablet See Rx Instructions .ROUTE .COMPLEX Qty: 30 RF: 2 aripiprazole 2 mg tablet 2 mg PO DAILY RF: 0 gabapentin 800 mg tablet 800 mg PO TID RF: 0 nitroglycerin 0.4 mg tablet, sublingual 0.4 mg sublingual Q5MIN PRN (Reason: Chest Pain) RF: 0 hydrocodone-acetaminophen [[place]] 5-325 mg tablet 1 tab PO Q4H PRN (Reason: pain) Qty: 20 RF: 0 Discharge Orders: Discharge ED (Routine); Ordered 04/23/20 Ordered By: Yoan Tamayo Referrals: Cristhian Escalante NP [Primary Care Provider] - Discharge Diet: Usual diet Discharge Activity: Increase activity as tolerated Patient Instructions: Hypokalemia (ED) Activity Restrictions/Additional Instructions: Drink plenty of fluids. Take potassium as directed. Follow-up with primary care in 1 week for recheck on lab work. Return to the emergency department for new concerns. Coding Level of Care Code ED Electrical Lineworker for Aicha Fwaaron Exam Comprehensive
[2020-04-23 21:56] LABS: Glucose Point of Care 235 mg/dL (70-110)
[2020-04-23 22:11] LABS: Basophils % 0.6 %; Eosinophils # 0.1 10^3/uL (0.0-0.8); Hematocrit 38.8 % (37.0-47.0); Hemoglobin 12.6 g/dL (11.5-15.3); Lymphocytes # 1.5 10^3/uL (0.8-4.8); Lymphocytes % 30.8 %; Mean Corpuscular HGB Conc 32.5 g/dL (30.0-36.0); Mean Corpuscular Hemoglobin 29.1 pg (28.0-34.0); Mean Corpuscular Volume 89.6 fL (81-99); Mean Platelet Volume 9.6 fL (7.4-10.4); Monocytes # 0.3 10^3/uL (0.2-0.9); Monocytes % 6.5 %; Neutrophils % 60.9 %; Nucleated Red Blood Cells % 0 %; Platelet Count 218 10^3/cmm (130-400); Red Blood Count 4.33 10^6/uL (4.1-5.3); Red Cell Distribution Width 13.6 % (12.1-15.1); White Blood Count 4.9 10^3/uL (4.0-10.0)
[2020-04-23 22:20] LABS: Alanine Aminotransferase 16 U/L (0-33); Albumin Level 3.8 g/dL (3.5-5.2); Alkaline Phosphatase 110 IU/L (35-105); Aspartate Amino Transferase 13 U/L (0-32); Blood Urea Nitrogen 14 mg/dL (8-23); Calcium 9.1 mg/dL (8.5-10.5); Carbon Dioxide 24 mmol/L (22-29); Chloride 98 mmol/L (98-107); Globulin 3.6 g/dL (1.3-4.6); Glucose 268 mg/dL (65-115); Osmolality Calculated 288 mOsm/kg (285-295); Sodium 134 mmol/L (136-145); Total Bilirubin 0.3 mg/dL (0.15-1.2); Total Protein 7.4 g/dL (6.6-8.7)
[2020-04-23] MEDS: potassium chloride ER 20 mEq Tablet 40 MEQ PO (22:34)
[2020-04-23 22:35] VITALS: BP 142/81; RESP 16
[2020-04-23 23:05] VITALS: BP 175/85; PULSE 102; RESP 18; O2SAT 96
== END 2020-04-23 23:06 | disposition home or self-care (01) ==
PROVIDERS: Emergency Provider Nurse Practitioner Family; PCP Nurse Practitioner Family
DX: R51.9 Headache, unspecified (principal); I10 Essential (primary) hypertension; E87.6 Hypokalemia; Z79.84 Long term (current) use of oral hypoglycemic drugs; Z79.02 Long term (current) use of antithrombotics/antiplatelets; J44.9 Chronic obstructive pulmonary disease, unspecified; I25.10 Atherosclerotic heart disease of native coronary artery without angina pectoris; E11.9 Type 2 diabetes mellitus without complications; E78.5 Hyperlipidemia, unspecified; Z95.5 Presence of coronary angioplasty implant and graft; Z87.891 Personal history of nicotine dependence
CPT/HCPCS: 12345; 36416; 70450; 80053; 82962; 85025; 99283

== ENCOUNTER 2020-05-17 15:32 | Outpatient (CLI) | payer MEDICARE, MEDICAID, SELFPAY ==
--- NOTE | 2020-05-17 15:45 | USCV_ITS ---
Elyssa Daniels Age: 74 Gender: F : 1945 Exam Date: 05/17/2020 16:04 Ordering Phys: Jennifer Syed MD Technologist: Britany Medina Exam Location: [facility] [place] Indication: HEART FAILURE BP: 129 / 67 HR: 57 Rhythm: Sinus Technical Quality: Technically difficult study MEASUREMENTS (Male / Female) Normal Values 2D ECHO LV Diastolic Diameter PLAX 3.2 cm 4.2 - 5.9 / 3.9 - 5.3 cm LV Systolic Diameter PLAX 2.2 cm IVS Diastolic Thickness 1.5 cm 0.6 - 1.0 / 0.6 - 0.9 cm IVS Systolic Thickness 2.0 cm LVPW Diastolic Thickness 1.5 cm 0.6 - 1.0 / 0.6 - 0.9 cm LVPW Systolic Thickness 1.5 cm RV Chamber Size 2.8 cm LVOT Diameter 2.0 cm LV Ejection Fraction 2D Teich 60.1 % LV Ejection Fraction MOD 2C 66.9 % LV Ejection Fraction 2C AL 66.4 % LA Diameter 3.5 cm LA Width 4.0 cm LA Height 4.1 cm RA Width 2.8 cm RA Height 4.2 cm Aorta at Sinotubular Diameter 2.4 cm M-MODE LV Diastolic Diameter MM 4.3 cm 4.2 - 5.9 / 3.9 - 5.3 cm LV Systolic Diameter MM 2.8 cm LV Ejection Fraction MM Teich 65.4 % IVS Diastolic Thickness MM 1.8 cm 0.6 - 1.0 / 0.6 - 0.9 cm IVS Systolic Thickness MM 2.1 cm LVPW Diastolic Thickness MM 1.6 cm 0.6 - 1.0 / 0.6 - 0.9 cm LVPW Systolic Thickness MM 1.7 cm Aortic Annulus Diameter 2.7 cm LA Ao Ratio MM 1.3 MV E Point Septal Separation 0.5 cm DOPPLER AV Peak Velocity 163.0 cm/s LVOT Peak Velocity 105.0 cm/s AV Area Cont Eq vti 1.8 cm squared AV Area Cont Eq pk 2.0 cm squared MV Area PHT 3.9 cm squared Mitral E to A Ratio 0.7 MV E' Velocity 38.5 cm/s Mitral E to MV E' Ratio 7.6 Mitral E to LV E' Lateral Ratio 7.6 Mitral E to LV E' Septal Ratio 7.6 TR Peak Velocity 232.1 cm/s TR Peak Gradient 21.6 mmHg TR Mean Velocity 200.9 cm/s TR Mean Gradient 18.3 mmHg TR Velocity Time Integral 97.1 cm Right Atrial Pressure 3.0 mmHg Pulmonary Artery Systolic Pressu 24.6 mmHg PV Peak Velocity 82.0 cm/s RV Acceleration Time 0.2 s RV Ejection Time 0.3 s RV AcT/ET 0.4 FINDINGS Left Ventricle Normal left ventricular cavity size. Normal left ventricular systolic function. No regional wall motion abnormalities. Left ventricular ejection fraction is estimated at 60 %. Right Ventricle The right ventricle is normal in size and function. Right Atrium The right atrium is normal in size. Left Atrium The left atrium is normal in size. Mitral Valve Moderately thickened mitral valve. Moderate mitral annular calcification. No mitral valve stenosis. Mild mitral valve regurgitation. Aortic Valve Moderate aortic valve calcification. Mild aortic valve stenosis, mean gradient 4.5 mmHg, SONIA 1.8 cm squared.no aortic valve regurgitation. Tricuspid Valve Trace tricuspid valve regurgitation. Pulmonic Valve Structurally normal pulmonic valve without significant stenosis. There is no pulmonic regurgitation. Pericardium Normal pericardium without effusion. Aorta Normal ascending aorta dimension. CONCLUSIONS 1-Normal left ventricular cavity size. Normal left ventricular systolic function. No regional wall motion abnormalities. Left ventricular ejection fraction is estimated at 60 %. 2-Moderately thickened mitral valve. Moderate mitral annular calcification. No mitral valve stenosis. Mild mitral valve regurgitation. 3-Moderate aortic valve calcification. Mild aortic valve stenosis, mean gradient 4.5 mmHg, SONIA 1.8 cm squared.no aortic valve regurgitation. 4-There is no pericardial effusion. 5-Pulmonary artery systolic pressure is within normal limits. 6-When compared to the prior echocardiogram dated October 03, 2018 there is mild aortic stenosis now. Jose F Cabrera MD (Electronically Signed) Final Date: 17 May 2020 18:11 S
== END 2020-05-17 15:33 | disposition home or self-care (01) ==
LOC: US 15:33
PROVIDERS: PCP Nurse Practitioner Family; Visit Provider Internal Medicine Critical Care Medicine
DX: I50.9 Heart failure, unspecified (principal); I08.0 Rheumatic disorders of both mitral and aortic valves
CPT/HCPCS: 93306

== ENCOUNTER 2020-09-03 14:01 | Emergency (ER) | payer MEDICARE, MEDICAID, SELFPAY ==
[2020-09-03 14:01] VITALS: BP 142/60; PULSE 55; RESP 18; TEMP 37.1; O2SAT 97; BMI 29.9
--- NOTE | 2020-09-03 14:02 | ECG_ITS ---
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
--- NOTE | 2020-09-03 14:02 | XR_ITS ---
WS: [id number] Portable AP upright chest, 09/03/2020 Clinical Data: cp Comparison: PA and lateral chest, 08/23/2018. Findings: No nodules, masses or effusions are seen. The heart is normal. The pulmonary vascularity is not increased. No pneumonia or pneumothorax is seen. Monitor leads are on the chest wall. The aortic arch and descending aorta show calcification and tortuosity. XR/XR chest 1V portable [id number] Impression: 1. No right upper lobe nodule is seen on this exam. 2. Atherosclerosis.
[2020-09-03 14:11] VITALS: BP 142/60; PULSE 60; RESP 20; O2SAT 95
[2020-09-03] MEDS: aspirin 81 mg Chew Tablet 324 MG PO (14:41)
[2020-09-03 14:42] LABS: Basophils % 0.7 %; Eosinophils # 0.1 10^3/uL (0.0-0.8); Eosinophils % 1.6 %; Hematocrit 39.6 % (37.0-47.0); Hemoglobin 12.5 g/dL (11.5-15.3); Lymphocytes # 1.5 10^3/uL (0.8-4.8); Lymphocytes % 24.1 %; Mean Corpuscular HGB Conc 31.6 g/dL (30.0-36.0); Mean Corpuscular Hemoglobin 28.9 pg (28.0-34.0); Mean Corpuscular Volume 91.7 fL (81-99); Mean Platelet Volume 9.7 fL (7.4-10.4); Monocytes # 0.5 10^3/uL (0.2-0.9); Monocytes % 8.6 %; Neutrophils # 3.98 10^3/uL (1.8-7.7); Neutrophils % 64.7 %; Nucleated Red Blood Cells % 0 %; Platelet Count 268 10^3/cmm (130-400); Red Blood Count 4.32 10^6/uL (4.1-5.3); Red Cell Distribution Width 14.5 % (12.1-15.1); White Blood Count 6.2 10^3/uL (4.0-10.0)
[2020-09-03] MEDS: lidocaine 2% viscous 15 ML, aluminum-mag hydrox-simethicon 30 ML, sucralfate oral liq 1 GM PO (14:43)
[2020-09-03 14:44] VITALS: BP 142/60; PULSE 60; RESP 20; O2SAT 94
[2020-09-03 14:55] LABS: D Dimer 0.61 ug/mIFEU (0-0.59)
[2020-09-03 15:04] LABS: Troponin(5th) Baseline 10 ng/L (0-10)
[2020-09-03 15:14] LABS: Alanine Aminotransferase 16 U/L (0-33); Albumin Level 4.3 g/dL (3.5-5.2); Alkaline Phosphatase 79 IU/L (35-105); Anion Gap 15.5 (5-19); Aspartate Amino Transferase 13 U/L (0-32); Blood Urea Nitrogen 22 mg/dL (8-23); Calcium 8.8 mg/dL (8.5-10.5); Carbon Dioxide 26 mmol/L (22-29); Chloride 102 mmol/L (98-107); Globulin 3.4 g/dL (1.3-4.6); Glucose 117 mg/dL (65-115); NT Pro B Type Natriuretic Pept 403 pg/mL (0-125); Osmolality Calculated 292 mOsm/kg (285-295); Potassium 4.5 mmol/L (3.5-5.1); Sodium 139 mmol/L (136-145); Total Bilirubin 0.2 mg/dL (0.15-1.2); Total Protein 7.7 g/dL (6.6-8.7)
--- NOTE | 2020-09-03 15:33 | CTR_ITS ---
PROCEDURE INFORMATION: Exam: CTA Chest With Contrast Exam date and time: 09/03/2020 4:53 PM Age: 74 years old Clinical indication: Sternal or substernal pain; Additional info: Cp elevated d dimer TECHNIQUE: Imaging protocol: Computed tomographic angiography of the chest with contrast. 3D rendering (Not supervised by radiologist): MIP and/or 3D reconstructed images were created by the technologist. Radiation optimization: All CT scans at this facility use at least one of these dose optimization techniques: automated exposure control; mA and/or kV adjustment per patient size (includes targeted exams where dose is matched to clinical indication); or iterative reconstruction. Contrast material: VISI 320; Contrast volume: 89 ml; Contrast route: INTRAVENOUS (IV); COMPARISON: CT chest w con* [id number] 10/01/2019 12:31 PM RADIATION DOSE METRICS: Total DLP (mGy-cm): 593.67 FINDINGS: Pulmonary arteries: No evidence of pulmonary embolus. Aorta: No acute abnormality. Veins: Flow artifacts noted in a few of the pulmonary veins. Lungs: Mild emphysema in trace scattered scarring. No focal consolidation. Pleural spaces: Unremarkable. No pneumothorax. No pleural effusion. Heart: No cardiomegaly. No pericardial effusion. Extensive coronary artery calcification. Lymph nodes: No enlarged lymph nodes. Bones/joints: No acute fracture. Soft tissues: Scattered hard and soft plaque in the aorta, greatest at the arch with approximately 20% stenosis. CT/CT angio chest PE protcl [id number] IMPRESSION: 1. No evidence of pulmonary embolus. 2. Significant atherosclerotic disease of the aorta with approximately 20% stenosis at the arch. Radiation Dose CTDIVOL = (mGy): DLP = 593.67 (mGy-cm)
--- NOTE | 2020-09-03 16:02 | ECG_ITS ---
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
[2020-09-03 17:21] LABS: Troponin 5 2HR 9.23 ng/L (0-10)
[2020-09-03 17:23] LABS: Troponin 5 2HR Delta -0.77 ABS# (0-10)
[2020-09-03] MEDS: iodixanol 320 mg/mL 100mL Btl IV (17:25)
--- NOTE | 2020-09-03 18:40 | W.ED.CHESTPA ---
HPI - Chest Pain General: Chief Complaint: Chest Pain Stated Complaint: chest pain Time Seen by Provider: 09/03/20 14:05 History of Present Illness: HPI narrative: The patient is a 74-year-old female with past medical history coronary artery disease with stenting procedure in 2001. She comes to the ER complaining of midsternal chest pain that radiates to both sides of her neck. She says she was worried because when she had her pain years ago she also felt the pain in her neck and is not sure. She took 3 nitroglycerin at home which she says mildly helped her pain. Shortly after arrival her pain spontaneously resolved. EMS did not give aspirin nor any other nitroglycerin during transport. She is very tender to her anterior chest wall and it reproduces her chief complaint. She has an appointment in 3 days for a stress test by Dr. Nash. I recommended she follow-up then and she says she will definitely keep that appointment. MD complaint: chest pain Pertinent past history: coronary artery disease Timing of current episode: episodic Onset: during rest Pain location: substernal Pain radiation: neck (bilateral neck) Severity: mild Quality: sharp Relieving factors: nitroglycerin (mildly ) Exacerbating factors: palpation, movement and other (cough/deep breaths) Associated symptoms: Reports no associated symptoms; Deny abdominal pain, dyspnea or palpitations Review of Systems General: Reports: 10 or more systems reviewed and unremarkable except in HPI and below Const: Denies: fatigue Eyes: Denies: change in vision, blurry vision or eye redness ENMT: Denies: throat pain, swelling of lips/tongue, ear or mastoid pain or nasal congestion Card: Reports: chest pain; Denies: palpitations, irregular heart rhythm, edema, dyspnea on exertion or orthopnea Resp: Denies: dyspnea, productive cough or non-productive cough GI: Denies: abdominal pain, diarrhea or GI cramping : Denies: flank pain, difficulty voiding, urinary frequency or urinary urgency Musc: Denies: neck pain, back pain, extremity pain, joint pain, joint redness, limited range of motion or muscle weakness Skin/Breast: Denies: rash, pruritus, erythema, skin pain or skin tenderness Neuro: Denies: headache(s), numbness in extremities, weakness in extremities, sensory changes, difficulty walking, dizziness, confusion or Slurred speech present Psych: Denies: anxiety or depression Endo: Denies: polyuria All/Imm: Denies: urticaria, throat swelling or tongue swelling PFSH ED PFSH: Medical History Bipolar disorder, in partial remission, most recent episode manic Chronic kidney disease (CKD) Chronic obstructive pulmonary disease Coronary artery disease Patient with stents Diabetes mellitus Hyperlipidemia Hypertension Hypothyroidism Incidental pulmonary nodule, > 3mm and < 8mm Lupus Surgical History History of back surgery (01/17/13) History of bilateral breast reduction surgery History of bilateral tubal ligation History of bladder surgery (~1989) Vaginal Urethral sling with possible anchors . [place] [facility] [place] History of cholecystectomy History of colonoscopy with polypectomy (~04/20/20) 2017 History of coronary angioplasty with insertion of stent 2006: 2 stents. 2008: 2 stents. History of dilation and curettage (~1982) History of hand surgery Repair right thumb fracture History of hemorrhoidectomy History of right cataract extraction History of vaginal hysterectomy Still has ovaries. Performed in [place], [place]. Performed due to bleeding. Family History Brother Heart disease Hypertension Hypercholesteremia Diabetes Sister Thyroid condition Denies family history of Colon cancer Ovarian cancer Clotting disorder Breast cancer Anesthesia complication Bleeding disorder Uterine cancer Stroke Social History Smoking and tobacco status: former smoker Quit status (tobacco): has quit using tobacco Year quit tobacco: 2019 - 1.5 PPD x 50 Years Alcohol intake: never Physical Exam Const: COMMON NORMALS: no acute distress, average body habitus, patient oriented x3, no limitations, healthy appearing, alert and well nourished GENERAL APPEARANCE: cooperative, comfortable, well kempt and well developed ORIENTATION/CONSCIOUSNESS: Yes awake, Yes oriented to person, Yes oriented to place and Yes oriented to time HENMT: COMMON NORMALS: normocephalic, external ears normal and Normal external nose present HEAD & SCALP: normal to inspection and normocephalic NOSE: Normal external nose present EXTERNAL EAR: Yes external ears normal MOUTH: Normal oral and palatal mucosa present THROAT: posterior oropharynx normal Eye: COMMON NORMALS: Equal, round and reactive pupils present and EOMs intact bilaterally GENERAL EYE: appearance normal, both eyes and all related structures PUPIL: Yes Equal, round and reactive pupils present Neck/C-Spine: COMMON NORMALS: full ROM, no lymphadenopathy, no meningeal signs and no JVD GENERAL: Yes normal visual inspection Lymph: LYMPHATIC: no lymphadenopathy noted Chest: COMMONS NORMALS: normal inspection of the chest Chest images (female): 1. Tenderness to the sternum reproducing her chief complaint of chest pain. Also worse with deep breaths and coughing and movement Resp: COMMON NORMALS: normal respiratory effort, No retractions, No use of accessory muscles, clear to auscultation bilaterally and percussion normal EFFORT & INSPECTION: Yes able to speak in complete sentences AUSCULTATION: clear to auscultation bilaterally PERCUSSION: percussion normal Cardio: COMMON NORMALS: no JVD, regular rate, regular rhythm, S1 normal heart sound present, S2 normal heart sound present and Peripheral pulses 2+ throughout RATE: regular rate RHYTHM: regular rhythm HEART SOUNDS: S1 normal heart sound present and S2 normal heart sound present PERIPHERAL PULSES: Peripheral pulses 2+ throughout GI: COMMON NORMALS: Normal to inspection, nondistended, normoactive bowel sounds present, Soft to palpation, non-tender and no masses INSPECTION: Yes normal to inspection PALPATION: Yes Soft to palpation : COMMON NORMALS: Yes no CVA tenderness BLADDER/KIDNEY EXAM: Yes no CVA tenderness Back/Pelvis: COMMON NORMALS: no CVA tenderness, thoracic and lumbar spine normal to inspection, no thoracic nor lumbar tenderness and thoraco-lumbar ROM normal Extremity: COMMON NORMALS: normal to inspection, full ROM, capillary refill normal, no joint enlargement and no pedal edema GENERAL: Yes normal exam except as noted Neuro: COMMON NORMALS: patient oriented x3, CN's II-XII intact bilaterally, moves all extremities, no focal motor deficits, no sensory deficits noted and gait normal SENSORIUM/ORIENTATION: Yes alert, Yes oriented to person, Yes oriented to place and Yes oriented to time MENINGEAL SIGNS: Yes no meningeal signs Psych: COMMON NORMALS: mental status grossly normal, Normal thought process present, cooperative, normal affect and speech normal APPEARANCE: Yes well kempt ATTITUDE: Yes calm SPEECH: Yes normal speech THOUGHT PROCESS: Normal thought process present Skin: COMMON NORMALS: no rashes or lesions noted GENERAL SKIN EXAM: no rashes or lesions noted Course Vital Signs: Vital signs: Vital Signs Temperature 98.7 F 09/03/20 14:01 Pulse Rate 60 09/03/20 14:44 Respiratory Rate 20 H 09/03/20 14:44 Blood Pressure 142/60 09/03/20 14:44 Pulse Oximetry 94 09/03/20 14:44 MDM - Chest Pain MDM Narrative: Medical decision making narrative: The patient is a 74-year-old with coronary artery disease with stents in 2001. She comes in with atypical sounding chest pain which is reproducible by palpation of her sternum, deep breaths, coughing, movement. 2 troponins is normal. Her initial EKG is also normal and she has had no changes on the monitor other than sinus rhythm. She conveniently has an appointment with Dr. Wilson in 3 days for a stress test. Her chest pain resolved shortly after arrival without any additional nitroglycerin. She was given an aspirin on arrival. Troponins negative x2. She is stable for discharge and will return with any return of her symptoms. Incidentally on CT angiogram chest she has atherosclerosis of her aortic arch with a 20% stenosis. I have placed a case management referral to help her get an with vascular surgery to discuss this further and she will also bring it up with Dr. Elizalde Sunday. She is taking a statin. Lab Data: Labs: Lab Results 09/03/20 09/03/20 09/03/20 Range/Units 14:32 14:32 14:32 WBC 6.2 (4.0-10.0) 10^3/ uL RBC 4.32 (4.1-5.3) 10^6/u L Hgb 12.5 (11.5-15.3) g/dL Hct 39.6 (37.0-47.0) % MCV 91.7 (81-99) fL MCH 28.9 (28.0-34.0) pg MCHC 31.6 (30.0-36.0) g/dL RDW 14.5 (12.1-15.1) % Plt Count 268 (130-400) 10^3/c mm MPV 9.7 (7.4-10.4) fL Neut % (Auto) 64.7 % Lymph % (Auto) 24.1 % Orange % (Auto) 8.6 % Eos % (Auto) 1.6 % Baso % (Auto) 0.7 % Neut # (Auto) 3.98 (1.8-7.7) 10^3/u L Lymph # (Auto) 1.5 (0.8-4.8) 10^3/u L Orange # (Auto) 0.5 (0.2-0.9) 10^3/u L Eos # (Auto) 0.1 (0.0-0.8) 10^3/u L Baso # (Auto) 0.0 (0.0-0.1) 10^3/u L Nucleated RBC % (a uto) 0 % Nucleated RBCs # 0.0 /100WBC D-Dimer 0.61 H (0-0.59) ug/mIFE U Sodium 139 (136-145) mmol/L Potassium 4.5 (3.5-5.1) mmol/L Chloride 102 (98-107) mmol/L Carbon Dioxide 26 (22-29) mmol/L Anion Gap 15.5 (5-19) BUN 22 (8-23) mg/dL Creatinine 1.2 H (0.5-0.9) mg/dL GFR Calculation Not Reportable Glucose 117 H (65-115) mg/dL Calculated Osmolal ity 292 (285-295) mOsm/k g Calcium 8.8 (8.5-10.5) mg/dL Total Bilirubin 0.2 (0.15-1.2) mg/dL AST 13 (0-32) U/L ALT 16 (0-33) U/L Alkaline Phosphata se 79 (35-105) IU/L Troponin T Baselin e (0-10) ng/L Troponin T 120 Min [place] (0-10) ng/L Delta Troponin T (0-10) ABS# NT-Pro-B Natriuret Pep 403 H (0-125) pg/mL Total Protein 7.7 (6.6-8.7) g/dL Albumin 4.3 (3.5-5.2) g/dL Globulin 3.4 (1.3-4.6) g/dL 09/03/20 09/03/20 Range/Units 14:32 16:34 WBC (4.0-10.0) 10^3/ uL RBC (4.1-5.3) 10^6/u L Hgb (11.5-15.3) g/dL Hct (37.0-47.0) % MCV (81-99) fL MCH (28.0-34.0) pg MCHC (30.0-36.0) g/dL RDW (12.1-15.1) % Plt Count (130-400) 10^3/c mm MPV (7.4-10.4) fL Neut % (Auto) % Lymph % (Auto) % Orange % (Auto) % Eos % (Auto) % Baso % (Auto) % Neut # (Auto) (1.8-7.7) 10^3/u L Lymph # (Auto) (0.8-4.8) 10^3/u L Orange # (Auto) (0.2-0.9) 10^3/u L Eos # (Auto) (0.0-0.8) 10^3/u L Baso # (Auto) (0.0-0.1) 10^3/u L Nucleated RBC % (a uto) % Nucleated RBCs # /100WBC D-Dimer (0-0.59) ug/mIFE U Sodium (136-145) mmol/L Potassium (3.5-5.1) mmol/L Chloride (98-107) mmol/L Carbon Dioxide (22-29) mmol/L Anion Gap (5-19) BUN (8-23) mg/dL Creatinine (0.5-0.9) mg/dL GFR Calculation Glucose (65-115) mg/dL Calculated Osmolal ity (285-295) mOsm/k g Calcium (8.5-10.5) mg/dL Total Bilirubin (0.15-1.2) mg/dL AST (0-32) U/L ALT (0-33) U/L Alkaline Phosphata se (35-105) IU/L Troponin T Baselin e 10 (0-10) ng/L Troponin T 120 Min [place] 9.23 (0-10) ng/L Delta Troponin T -0.77 L (0-10) ABS# NT-Pro-B Natriuret Pep (0-125) pg/mL Total Protein (6.6-8.7) g/dL Albumin (3.5-5.2) g/dL Globulin (1.3-4.6) g/dL Discharge Plan Discharge Patient Disposition: Home Clinical Impression: Atypical chest pain Condition: Stable Prescriptions: No Action cholecalciferol (vitamin D3) 50 mcg (2,000 unit) capsule 50 mcg PO DAILY@09 RF: 0 losartan 100 mg tablet 100 mg PO DAILY@899 RF: 0 atorvastatin [Lipitor] 80 mg tablet 80 mg PO DAILY@899 RF: 0 levothyroxine 100 mcg capsule 100 mcg PO DAILY@899 RF: 0 metformin 500 mg tablet 500 mg PO BID@899,2099 RF: 0 tolterodine [Detrol] 2 mg tablet 2 mg PO BID@899,2099 RF: 0 melatonin 5 mg capsule 7.5 mg PO BEDTIME@2099 RF: 0 metoprolol succinate 50 mg capsule,sprinkle,ER 24hr 75 mg PO DAILY@899 RF: 0 albuterol sulfate [ProAir HFA] 90 mcg/actuation HFA aerosol inhaler 2 puff inhalation Q6H PRN (Reason: Shortness Of Breath) RF: 0 nitroglycerin 0.4 mg tablet, sublingual 0.4 mg sublingual Q5MIN PRN (Reason: Chest Pain) RF: 0 amlodipine 2.5 mg tablet 5 mg PO DAILY@899 RF: 0 Bevespi Aerosphere 9-4.8 mcg HFA aerosol inhaler 2 puff INHALATION BID@899,2099 RF: 0 meloxicam 7.5 mg tablet 7.5 mg PO DAILY@899 RF: 0 ropinirole 2 mg tablet 2 mg PO DAILY@2099 RF: 0 hydrochlorothiazide 25 mg tablet 25 mg PO DAILY@899 RF: 0 Ventolin HFA 90 mcg/actuation HFA aerosol inhaler See Rx Instructions .ROUTE .COMPLEX RF: 0 fenofibrate 54 mg tablet 54 mg PO DAILY@2099 RF: 0 Anoro Ellipta 62.5-25 mcg/actuation blister with device See Rx Instructions .ROUTE .COMPLEX RF: 0 oxybutynin chloride 15 mg tablet extended release 24 hr 15 mg PO DAILY@09 RF: 0 potassium chloride 10 mEq tablet extended release 10 meq PO DAILY@899 RF: 0 clopidogrel 75 mg tablet 75 mg PO DAILY@899 RF: 0 gabapentin 800 mg tablet 800 mg PO TID@ RF: 0 Cymbalta 60 mg capsule,delayed release(DR/EC) 60 mg PO DAILY@0900 RF: 0 aripiprazole 2 mg tablet 2 mg PO DAILY@0900 RF: 0 Discharge Orders: Discharge ED (Routine); Ordered 09/03/20 Ordered By: Shahid Abraham Referrals: Cristhian Escalante NP [Primary Care Provider] - Discharge Diet: Advance as tolerated Discharge Activity: Resume usual activity Patient Instructions: Chest Pain (ED), Opioid Safety Activity Restrictions/Additional Instructions: You have had an episode of atypical chest pain. Your troponins have been normal and your chest pain resolved on its own just after he arrived. It is convenient that you have a stress test with Dr. Nash Sunday. Please make sure you go to that stress test and return to the ER with any worsening symptoms. Also you have a slight stricture of your aorta related to cholesterol which is making a 20% stenosis at the aortic arch. Please discuss this with Dr. Nash. I have placed a consult with our employment evaluator/case manager to help you get a appointment with a vascular surgeon as well. They should be calling you Sunday to help set up this appointment. Return to the ER with any worsening or worrisome symptoms at any time. Coding Level of Care Code ED Loom Blower for Aicha Jean Baptiste
[2020-09-03 18:48] VITALS: BP 198/87; PULSE 54; RESP 15; O2SAT 96
--- NOTE | 2020-09-06 10:22 | DCPLANNER ---
Addendum entered by Berenice Aguilar 09/10/20 09:18: automotive center manager called [facility], spoke with Chiqui, asked about follow up appointment. A follow up appointment was scheduled for Thursday, October 01, 2020 at 9:[address] Onofre at [facility]. automotive center manager called phone number [phone], unable to speak with patient at this time, a voicemail was left for patient to return vocational case manager phone call. automotive center manager also called patients sister at phone number [phone], unable to speak with sister at this time, a voicemail was left for the patient to return vocational case manager phone call. Original Note: automotive center manager had message to schedule a follow up appointment for patient with Dr. Onofre at [facility]. automotive center manager called [facility], spoke with Galilea, gave clinic patients information. automotive center manager was told that patients information would be printed and reviewed, with Dr. Cordova nurse, to see where to schedule patient for an appointment. Clinic will call patient with appointment information.
--- NOTE | 2020-11-09 11:48 | DCPLANNER ---
Patient had a follow up appointment scheduled for 10.01.[address] Onofre at [facility] - patient did attend appointment.
== END 2020-09-03 18:48 | disposition home or self-care (01) ==
PROVIDERS: Emergency Provider Family Medicine; PCP Nurse Practitioner Family
DX: R07.89 Other chest pain (principal); Z79.02 Long term (current) use of antithrombotics/antiplatelets; J44.9 Chronic obstructive pulmonary disease, unspecified; I25.10 Atherosclerotic heart disease of native coronary artery without angina pectoris; E11.9 Type 2 diabetes mellitus without complications; E78.5 Hyperlipidemia, unspecified; I10 Essential (primary) hypertension; Z95.5 Presence of coronary angioplasty implant and graft; Z87.891 Personal history of nicotine dependence
CPT/HCPCS: 36415; 71045; 71275; 80053; 83880; 84484; 85025; 85378; 93005; 99284; Q9967

== ENCOUNTER 2020-09-08 07:13 | Outpatient (CLI) | payer MEDICARE, MEDICAID, SELFPAY ==
[2020-09-08 08:40] LABS: Chol HDL Ratio 4.56 mg/dL (0.0-4.40); Cholesterol 164 mg/dL (0-200); HDL Cholesterol 36 mg/dL (60-100); LDL Cholesterol Calculated 100 mg/dL (50-129); Triglycerides 142 mg/dL (0-150); VLDL Cholestrol Calculation 28 mg/dL (0-30)
== END 2020-09-08 07:14 | disposition home or self-care (01) ==
PROVIDERS: PCP Nurse Practitioner Family; Visit Provider Internal Medicine Cardiovascular Disease
DX: E78.5 Hyperlipidemia, unspecified (principal)
CPT/HCPCS: 36415; 80061

== ENCOUNTER 2020-09-14 07:16 | Outpatient (CLI) | payer MEDICARE, MEDICAID, SELFPAY ==
[2020-09-14 07:43] VITALS: BMI 29.9
--- NOTE | 2020-09-14 07:43 | NMCV_ITS ---
NM lang perf SPECT r/s* [id number] Elyssa Daniels Age: 74 Gender: F : 1945 Exam Date: 09/14/2020 07:43 Ordering Phys: Steph Nash MD ([email or web address]) Technologist: JEM Avery Exam Location: [facility] Indications: Dyspnea STRESS TEST Please see separate stress test report in [facility] for full findings IMAGE PROTOCOL Rest/Stress 1 Lexiscan Day Radiopharmaceutical Dose (mCi) Administration Site Administered by Rest: Tc-99m 10.6 IV JEM Avery Sestamibi Stress:Tc-99m 32.9 IV JEM Avery Rest: 14-Sep-2020 60 Discovery 630 Stress: 14-Sep-2020 30 Discovery 630 0.4mg Lexiscan. Images obtained in supine and prone position. SPECT RESULTS Technical Quality: Good Raw Data Analysis: Normal Image Corrections: No attenuation or motion correction applied Summed Stress Score: 0 Summed Rest Score: 0 Summed Difference Score: 0 PERFUSION FINDINGS SPECT images demonstrate homogeneous tracer distribution throughout the myocardium. FUNCTIONAL RESULTS (calculated via Gated SPECT) Stress Image LV EF (%): 77 Stress EDV (mL):62 TID: 1.19 Stress ESV (mL):14 FUNCTIONAL FINDINGS: The left ventricle is normal in size. Transient Ischemia Dilatation of 1.19. There is normal left ventricular systolic function. The left ventricular ejection fraction is normal with a value of 77%. There is normal left ventricular wall thickening with no regional wall motion abnormality. IMPRESSIONS 1. Myocardial perfusion imaging is normal. 2. Overall left ventricular systolic function is normal without regional wall motion abnormalities. 3. The left ventricular ejection fraction is normal with a value of 77%. 4. Transient ischemic dilation index mildly elevated at 1.19. This may represent hypertensive response/subendocardial ischemia. Clinical correlation is advised. 5. No EKG changes with Lexiscan infusion. Please refer to separate report for details. Steph Nash MD (Electronically Signed) Final Date: 20 September 2020 13:52 S
--- NOTE | 2020-09-14 07:43 | ECG_ITS ---
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 Interpretive Statements NAME OF STUDY: LEXISCAN SESTAMIBI STRESS TEST INDICATION: Dyspnea on exertion PROCEDURE: At the baseline, the blood pressure was 173/77 mmHg, oxygen saturation 93% with a heart rate of 50 bpm. The electrocardiogram showed sinus bradycardia, normal axis. Poor anterior R wave progression. Baseline artifact. The Lexiscan was infused over a period of 20 seconds. A total of 0.4 milligrams of Lexiscan was infused. The stress phase was continued for a total of 5 minutes. Heart rate at the end of the stress phase was 113 bpm, oxygen saturation 91% with a blood pressure of 246/78 mmHg. The EKG at the peak infusion revealed sinus tachycardia with no significant ST-T wave changes. Sestamibi was injected 20 seconds after the Lexiscan infusion. Blood pressure at the end of the recovery phase was 161/65 mmHg, oxygen saturation 88% with a heart rate of 78 beats per minute. Patient developed nausea and vomiting post Lexiscan infusion. CONCLUSION: 1. No significant EKG changes with the LexiScan infusion. 2. No LexiScan induced chest pain or cardiac arrhythmia. 3. Normal blood pressure and heart rate response. 4. Sestamibi/sestamibi perfusion scan pending; see separate report. Electronically Signed On 09-20-2020 13:49:21 CDT by Steph Nash M.D. [id number]
[2020-09-14] MEDS: regadenoson 0.4 Mg/5 ml Syringe IVP (09:46)
[2020-09-14] MEDS: ondansetron 2 mg/ML SDV 2 mL 4 MG IVP (09:46)
[2020-09-14 10:00] VITALS: BP 161/65; PULSE 80
== END 2020-09-14 07:17 | disposition home or self-care (01) ==
LOC: RAD 07:20 → CDL 07:25
PROVIDERS: PCP Nurse Practitioner Family; Visit Provider Internal Medicine Cardiovascular Disease
DX: R06.09 Other forms of dyspnea (principal)
CPT/HCPCS: 78452; 93017; A9500; J2405; J2785

== ENCOUNTER 2020-10-15 09:50 | Outpatient (CLI) | payer MEDICARE, MEDICAID, SELFPAY ==
--- NOTE | 2020-10-15 10:00 | CT_ITS ---
WS: [id number] CT scan of the chest with IV contrast, additional two-dimensional coronal and sagittal reconstruction was performed. 10/15/2020 Clinical Data: lung mass Comparison: CT chest, 09/03/2020. DLP: 823.[address] scans at [facility] use at least one of these dose optimization techniques: automat ed exposure control; mA and/or kV adjustment per patient size (includes targeted exams where dose is matched to clinical indication); or iterative reconstruction. Findings: No nodules, masses or effusions are seen. The heart size is normal with no pericardial effusion. No p neumonia or pneumothorax is seen. The pulmonary vascularity is normal. The pulmonary arterial system and thoracic aorta demonstrate no dilatations. There is minimal calcification of the wall of the aor tic arch and descending thoracic aorta. There is minimal mural thrombus in the descending thoracic ao rtic wall. There is no axillary or significant mediastinal adenopathy. There is a small hiatal hernia . The upper abdomen demonstrates clips in the gallbladder fossa from a cholecystectomy. The bones of th e thorax demonstrate only minimal osteoarthritic change. CT/CT chest w con* [id number] Impression: Negative CT scan of the chest with IV contrast.
[2020-10-15] MEDS: iodixanol 320 mg/mL 100mL Btl IV (10:21)
== END 2020-10-15 09:51 | disposition home or self-care (01) ==
LOC: RADWPI 09:54
PROVIDERS: PCP Nurse Practitioner Family; Visit Provider Thoracic Surgery (Cardiothoracic Vascular Surgery)
DX: R91.8 Other nonspecific abnormal finding of lung field (principal)
CPT/HCPCS: 71260; Q9967

== ENCOUNTER 2020-12-01 07:49 | Outpatient (CLI) | payer MEDICARE, MEDICAID, SELFPAY ==
--- NOTE | 2020-12-01 07:57 | XR_ITS ---
WS: [id number] Left shoulder, 2 views, 12/01/2020 Clinical Data: PAIN IN LEFT SHOULDER Comparison: None. Findings: No fractures or dislocations are seen. The AC joint is normal. The adjacent left clavicle, left scapu la and ribs are normal. The soft tissues are unremarkable. XR/XR shoulder LT min 2V* [id number] Impression: Negative left shoulder.
== END 2020-12-01 07:50 | disposition home or self-care (01) ==
PROVIDERS: PCP Nurse Practitioner Family; Visit Provider Nurse Practitioner Family
DX: M25.512 Pain in left shoulder (principal)
CPT/HCPCS: 73030

== ENCOUNTER → 2020-12-07 13:43 | Outpatient (BNVA) | payer MEDICARE, MEDICAID, SELFPAY | PROVIDERS: PCP Nurse Practitioner Family; Visit Provider Nurse Practitioner | DX: F31.73 Bipolar disorder, in partial remission, most recent episode manic (principal); G24.01 Drug induced subacute dyskinesia | CPT/HCPCS: 99214 ==

== ENCOUNTER → 2021-02-07 09:55 | Outpatient (BNVA) | payer MEDICARE, MEDICAID, SELFPAY | PROVIDERS: PCP Nurse Practitioner Family; Visit Provider Internal Medicine | DX: R76.8 Other specified abnormal immunological findings in serum (principal); M06.9 Rheumatoid arthritis, unspecified; M70.60 Trochanteric bursitis, unspecified hip; Y93.9 Activity, unspecified; Z79.899 Other long term (current) drug therapy; I25.10 Atherosclerotic heart disease of native coronary artery without angina pectoris; R68.2 Dry mouth, unspecified; H53.9 Unspecified visual disturbance; Z87.891 Personal history of nicotine dependence | CPT/HCPCS: 36415; 73030; 73120; 73522; 81003; 82728; 83540; 85651; 86140; 86160; 99204 ==

== ENCOUNTER 2021-02-07 11:30 | Outpatient (CLI) | payer MEDICARE, MEDICAID, SELFPAY ==
--- NOTE | 2021-02-07 11:38 | XR_ITS ---
WS: [id number] TECHNIQUE: 2 views of the right hand CLINICAL INFORMATION: R76.8 - Other specified abnormal immunological findings i... COMPARISON: September 24, 2011 FINDINGS: Moderate narrowing radiocarpal joint. Normal carpal bones. Normal metacarpals. Mild degenerative narr owing at the first MCP. Prior ankylosis infusion first DIP is unchanged. No significant erosive guzman es. XR/XR hand RT 2V [id number] IMPRESSION: No significant erosive changes.
--- NOTE | 2021-02-07 11:38 | XR_ITS ---
WS: [id number] SHOULDER RIGHT TECHNIQUE: 3 views of the right shoulder CLINICAL INFORMATION: R76.8 - Other specified abnormal immunological findings i... COMPARISON: None. FINDINGS: Moderate degenerative arthritis right AC joint. Mild degenerative narrowing glenohumeral joint. No ac qagan tayagungin fractures. Proximal humerus is normal. Visualized right lung is normal. XR/XR shoulder RT min 2V* [id number] IMPRESSION: No acute right shoulder findings.
--- NOTE | 2021-02-07 11:38 | XR_ITS ---
WS: [id number] HIPS BILATERAL TECHNIQUE: 4 views, AP and lateral CLINICAL INFORMATION: R76.8 - Other specified abnormal immunological findings i... COMPARISON: None. FINDINGS: Moderate degenerative narrowing both hips. Normal pubic rami. No acute fractures. Postoperative guzman es in the pelvis. Vascular calcification. XR/XR hip BI 3-4V wo/w pel [id number] IMPRESSION: Moderate degenerative narrowing both hips. No acute fractures. Tonnis classification LEFT: grade 2: small cysts in femoral head/acetabulum or moderate joint space narrowing or moderate loss of head sphericity Tonnis classification RIGHT: grade 2: small cysts in femoral head/acetabulum or moderate joint space narrowing or moderate loss of head sphericity
--- NOTE | 2021-02-07 11:38 | XR_ITS ---
WS: [id number] TECHNIQUE: 2 views of the left hand CLINICAL INFORMATION: R76.8 - Other specified abnormal immunological findings i... COMPARISON: None. FINDINGS: Moderate narrowing radiocarpal joint. Mild degenerative arthritis at the first CMC and STT. Normal me tacarpals. Mild PIP and DIP joint narrowing. IMPRESSION: No significant erosive changes.
--- NOTE | 2021-02-07 11:38 | XR_ITS ---
WS: [email or web address] SHOULDER LEFT TECHNIQUE: 3 views of the left shoulder CLINICAL INFORMATION: M06.9 - Rheumatoid arthritis, unspecified COMPARISON: None. FINDINGS: Moderate degenerative arthritis left acromioclavicular joint. Mild degenerative narrowing glenohumera l joint. Normal glenoid. No evidence of acute fracture dislocation. XR/XR shoulder LT min 2V* [id number] IMPRESSION: No acute left shoulder findings.
== END 2021-02-07 11:31 | disposition home or self-care (01) ==
PROVIDERS: PCP Nurse Practitioner Family; Visit Provider Internal Medicine
DX: R76.8 Other specified abnormal immunological findings in serum (principal); M06.9 Rheumatoid arthritis, unspecified
CPT/HCPCS: 73030; 73120; 73522; 81003; 82728; 83540; 85651; 86140; 86160

== ENCOUNTER → 2021-02-08 08:48 | Outpatient (BNVA) | payer MEDICARE, MEDICAID, SELFPAY | PROVIDERS: PCP Nurse Practitioner Family; Visit Provider Nurse Practitioner | DX: F31.73 Bipolar disorder, in partial remission, most recent episode manic (principal); F17.211 Nicotine dependence, cigarettes, in remission; G24.01 Drug induced subacute dyskinesia | CPT/HCPCS: 99214 ==

== ENCOUNTER → 2021-02-24 15:00 | Outpatient (BNVA) | payer MEDICARE, MEDICAID, SELFPAY | PROVIDERS: PCP Nurse Practitioner Family; Visit Provider Internal Medicine | DX: R76.8 Other specified abnormal immunological findings in serum (principal); M06.9 Rheumatoid arthritis, unspecified; M16.10 Unilateral primary osteoarthritis, unspecified hip; M70.60 Trochanteric bursitis, unspecified hip; Y93.9 Activity, unspecified; Z87.891 Personal history of nicotine dependence | CPT/HCPCS: 99214 ==

== ENCOUNTER → 2021-03-14 14:36 | Outpatient (BNVA) | payer MEDICARE, MEDICAID, SELFPAY | PROVIDERS: PCP Nurse Practitioner Family; Visit Provider Specialist | DX: G24.4 Idiopathic orofacial dystonia (principal); R91.8 Other nonspecific abnormal finding of lung field; F17.220 Nicotine dependence, chewing tobacco, uncomplicated | CPT/HCPCS: 99213 ==

== ENCOUNTER 2021-05-03 07:53 | Outpatient (CLI) | payer MEDICARE, MEDICAID, SELFPAY ==
[2021-05-03 08:27] LABS: Basophils # 0.1 10^3/uL (0.0-0.1); Basophils % 1.2 %; Eosinophils # 0.1 10^3/uL (0.0-0.8); Eosinophils % 1.6 %; Hematocrit 39.3 % (37.0-47.0); Hemoglobin 12.4 g/dL (11.5-15.3); Lymphocytes # 1.6 10^3/uL (0.8-4.8); Lymphocytes % 33.1 %; Mean Corpuscular HGB Conc 31.6 g/dL (30.0-36.0); Mean Corpuscular Volume 91.8 fl (81-99); Mean Platelet Volume 9.6 fL (7.4-10.4); Monocytes # 0.6 10^3/uL (0.2-0.9); Monocytes % 11.8 %; Neutrophils # 2.55 10^3/uL (1.8-7.7); Neutrophils % 52.1 %; Nucleated Red Blood Cells % 0 %; Platelet Count 209 10^3/cmm (130-400); Red Blood Count 4.28 10^6/uL (4.1-5.3); Red Cell Distribution Width 13.4 % (12.1-15.1); White Blood Count 4.9 10^3/uL (4.0-10.0)
[2021-05-03 08:47] LABS: Alanine Aminotransferase 14 U/L (0-33); Albumin Level 4.1 g/dL (3.5-5.2); Alkaline Phosphatase 55 IU/L (35-105); Anion Gap 15.7 (5-19); Aspartate Amino Transferase 14 U/L (0-32); Blood Urea Nitrogen 19 mg/dL (8-23); C Reactive Protein 0.6 mg/L (0.0-4.9); Calcium 9.1 mg/dL (8.5-10.5); Carbon Dioxide 28 mmol/L (22-29); Chloride 97 mmol/L (98-107); Complement C3 114 mg/dL (90-180); Globulin 2.6 g/dL (1.3-4.6); Glucose 100 mg/dL (65-115); Osmolality Calculated 284 mOsm/kg (285-295); Potassium 4.7 mmol/L (3.5-5.1); Sodium 136 mmol/L (136-145); Total Bilirubin 0.3 mg/dL (0.15-1.2); Total Protein 6.7 g/dL (6.6-8.7)
[2021-05-03 09:03] LABS: Erythrocyte Sedimentation Rate 16 mm/hr (0-15)
[2021-05-03 09:07] LABS: Bilirubin Urine Neg (Negative); Blood Urine Neg (Negative); Glucose Urine UA Norm (Normal); Ketones Urine Negative (Negative); Nitrate Urine Negative (Negative); Protein Urine Neg (Negative); Urine Appearance SL Hazy (CLEAR); Urine Color Yellow (Yellow); Urobilinogen Urine Norm (Negative); pH Urine 7 (5-7)
[2021-05-03 09:08] LABS: Add Urine Culture? No; Add Urine Microscopic? YES; Bacteria Urine 1+ /hpf; Leukocyte Esterase Urine 2+ (Negative); Mucus Urine TRACE /hpf; Squamous Epithelial Cell Urine 0-4 /hpf (0-5); WBC Urine 0-4 /hpf (0-5)
== END 2021-05-03 07:54 | disposition home or self-care (01) ==
LOC: LAB 08:01
PROVIDERS: PCP Nurse Practitioner Family; Visit Provider Internal Medicine
DX: M32.9 Systemic lupus erythematosus, unspecified (principal); R76.8 Other specified abnormal immunological findings in serum; Z79.899 Other long term (current) drug therapy
CPT/HCPCS: 36415; 80053; 81001; 85025; 85651; 86140; 86160

== ENCOUNTER → 2021-05-31 10:03 | Outpatient (BNVA) | payer BC, MEDICAID, SELFPAY | PROVIDERS: PCP Nurse Practitioner Family; Visit Provider Internal Medicine | DX: M05.9 Rheumatoid arthritis with rheumatoid factor, unspecified (principal); R76.8 Other specified abnormal immunological findings in serum; M70.61 Trochanteric bursitis, right hip; M70.62 Trochanteric bursitis, left hip; Y93.9 Activity, unspecified; Z87.891 Personal history of nicotine dependence | CPT/HCPCS: 99214 ==

== ENCOUNTER 2021-08-03 09:34 | Outpatient (CLI) | payer MEDICARE, MEDICAID, SELFPAY ==
[2021-08-03 11:44] LABS: Add Urine Microscopic? NO; Charge for UA Resulting for Rev
[2021-08-03 11:47] LABS: Basophils % 0.5 %; Eosinophils # 0.1 10^3/uL (0.0-0.8); Eosinophils % 1.1 %; Hematocrit 40.9 % (37.0-47.0); Hemoglobin 13.1 g/dL (11.5-15.3); Lymphocytes # 1.3 10^3/uL (0.8-4.8); Lymphocytes % 16.3 %; Mean Corpuscular Hemoglobin 29.3 pg (28.0-34.0); Mean Corpuscular Volume 91.5 fl (81-99); Mean Platelet Volume 9.6 fL (7.4-10.4); Monocytes # 0.5 10^3/uL (0.2-0.9); Monocytes % 5.8 %; Neutrophils # 6.24 10^3/uL (1.8-7.7); Neutrophils % 75.8 %; Nucleated Red Blood Cells % 0 %; Platelet Count 264 10^3/cmm (130-400); Red Blood Count 4.47 10^6/uL (4.1-5.3); Red Cell Distribution Width 12.9 % (12.1-15.1); White Blood Count 8.2 10^3/uL (4.0-10.0)
[2021-08-03 11:53] LABS: Erythrocyte Sedimentation Rate 8 mm/hr (0-15)
[2021-08-03 12:03] LABS: Bilirubin Urine Neg (Negative); Blood Urine Neg (Negative); Glucose Urine UA Norm (Normal); Ketones Urine Negative (Negative); Leukocyte Esterase Urine Negative (Negative); Nitrate Urine Negative (Negative); Protein Urine Neg (Negative); Specific Gravity, Urine 1.015 (1.005-1.030); Urine Appearance Clear (CLEAR); Urine Color Yellow (Yellow); Urobilinogen Urine Neg (Negative); pH Urine 5 (5-7)
[2021-08-03 12:49] LABS: Alanine Aminotransferase 15 U/L (0-33); Albumin Level 4.5 g/dL (3.5-5.2); Alkaline Phosphatase 56 IU/L (35-105); Anion Gap 17.1 (5-19); Aspartate Amino Transferase 16 U/L (0-32); Blood Urea Nitrogen 29 mg/dL (8-23); Calcium 9.9 mg/dL (8.5-10.5); Carbon Dioxide 26 mmol/L (22-29); Chloride 98 mmol/L (98-107); Globulin 3.4 g/dL (1.3-4.6); Glucose 122 mg/dL (65-115); Osmolality Calculated 291 mOsm/kg (285-295); Potassium 4.1 mmol/L (3.5-5.1); Sodium 137 mmol/L (136-145); Total Bilirubin 0.3 mg/dL (0.15-1.2); Total Protein 7.9 g/dL (6.6-8.7)
== END 2021-08-03 09:35 | disposition home or self-care (01) ==
LOC: LAB 09:37
PROVIDERS: PCP Nurse Practitioner Family; Visit Provider Internal Medicine
DX: M06.9 Rheumatoid arthritis, unspecified (principal); M32.9 Systemic lupus erythematosus, unspecified; R76.8 Other specified abnormal immunological findings in serum; Z79.899 Other long term (current) drug therapy
CPT/HCPCS: 36415; 80053; 81003; 85025; 85651; 86140

== ENCOUNTER 2021-08-28 22:23 | Emergency (ER) | payer MEDICARE, MEDICAID, SELFPAY ==
[2021-08-28 22:30] VITALS: BP 148/69; PULSE 65; RESP 20; TEMP 36.7; O2SAT 95; BMI 28.3
[2021-08-28 23:06] VITALS: BP 124/74; PULSE 90; RESP 22; TEMP 36.6; O2SAT 94; BMI 23.0
--- NOTE | 2021-08-29 01:20 | ED_ITS ---
HPI - General Adult General: Chief complaint: General Medical Stated complaint: right side of face pain Time Seen by Provider: 08/29/21 01:07 History of Present Illness: Patient is a 75-year-old female comes to the ED with right side of face pain and medication refill. Patient says well over a year ago she had a fall and hit the right side of her face and it damaged some of the nerves in her face. She has been dealing with this right sided facial pain for well over 6 months. Denies any right-sided facial swelling, numbness or tingling, erythema or warmth. She currently takes gabapentin and meloxicam to help with her pain. She is here because she would like a refill on her oral gel. Denies any fevers. Associated symptoms: Deny chest pain, dyspnea, headache(s), nausea, rash, palpitations or vomiting Review of Systems Const: Denies: fever(s), chills or fatigue Eyes: Denies: change in vision or eye discomfort ENMT: Reports: sinus pain (Chronic right maxillary face pain); Denies: throat pain, odynophagia, nasal discharge or nasal congestion Card: Denies: chest pain, palpitations, edema, swelling of feet/ankles, dyspnea on exertion or orthopnea Resp: Denies: dyspnea, productive cough or non-productive cough GI: Denies: abdominal pain, nausea, vomiting, diarrhea, constipation or hematochezia : Denies: flank pain, dysuria or hematuria Musc: Denies: neck pain, back pain or extremity swelling Skin/Breast: Denies: rash or new lesions Neuro: Denies: headache(s), numbness in extremities or weakness in extremities PFS ED PFSH: Medical History Bipolar disorder, in partial remission, most recent episode manic Chronic kidney disease (CKD) Chronic obstructive pulmonary disease Coronary artery disease Patient with stents Diabetes mellitus Hyperlipidemia Hypertension Hypothyroidism Incidental pulmonary nodule, > 3mm and < 8mm Lupus Psychiatric care Surgical History History of back surgery (01/17/13) History of bilateral breast reduction surgery History of bilateral tubal ligation History of bladder surgery (~1989) Vaginal Urethral sling with possible anchors . Performed by Dr. Salas at [facility]. History of cholecystectomy History of colonoscopy with polypectomy (~04/20/20) 2017 History of coronary angioplasty with insertion of stent 2006: 2 stents. 2008: 2 stents. History of dilation and curettage (~1982) History of hand surgery Repair right thumb fracture History of hemorrhoidectomy History of right cataract extraction History of vaginal hysterectomy Still has ovaries. Performed in [place], [place]. Performed due to bleeding. Family History Brother Heart disease Hypertension Hypercholesteremia Diabetes Sister Thyroid condition Denies family history of Colon cancer Ovarian cancer Clotting disorder Breast cancer Anesthesia complication Bleeding disorder Uterine cancer Stroke Social History Smoking and tobacco status: former smoker Quit status (tobacco): has quit using tobacco Year quit tobacco: 2019 - 1.5 PPD x 50 Years Former quit date comment: Hx of 1.5 PPD x 50 Years Second hand smoke exposure: No Alcohol intake: former Former alcohol use details: 1984 Physical Exam Const: COMMON NORMALS: no acute distress, patient oriented x3 and alert GENERAL APPEARANCE: cooperative and comfortable HENMT: COMMON NORMALS: normocephalic HEAD & SCALP: normocephalic MOUTH: Normal oral and palatal mucosa present THROAT: posterior oropharynx normal and uvula midline OTHER: Right side of face?no maxillary tenderness. No erythema, warmth or swelling on right side of face. No gingival edema noted. Neck/C-Spine: COMMON NORMALS: supple GENERAL: Yes normal visual inspection Resp: COMMON NORMALS: normal respiratory effort, No retractions, No use of accessory muscles and clear to auscultation bilaterally AUSCULTATION: clear to auscultation bilaterally Cardio: COMMON NORMALS: regular rate, regular rhythm, S1 normal heart sound present, S2 normal heart sound present, No gallops present (Cardio), No clicks present (Cardio), No murmurs present (Cardio) and Peripheral pulses 2+ throughout RATE: regular rate RHYTHM: regular rhythm HEART SOUNDS: S1 normal heart sound present and S2 normal heart sound present PERIPHERAL PULSES: Peripheral pulses 2+ throughout GI: COMMON NORMALS: Normal to inspection, nondistended, normoactive bowel sounds present, Soft to palpation, non-tender and no masses PALPATION: Yes Soft to palpation : COMMON NORMALS: Yes no CVA tenderness BLADDER/KIDNEY EXAM: Yes no CVA tenderness Back/Pelvis: COMMON NORMALS: no CVA tenderness Neuro: COMMON NORMALS: patient oriented x3 and moves all extremities SENSORIUM/ORIENTATION: Yes alert Skin: GENERAL SKIN EXAM: dry skin Course Vital Signs: Vital signs: Vital Signs Temperature 97.8 F 08/28/21 23:06 Pulse Rate 62 08/29/21 01:27 Respiratory Rate 18 08/29/21 01:27 Blood Pressure 188/87 08/29/21 01:27 Pulse Oximetry 94 08/29/21 01:27 MDM - General Adult Medical Decision Making Patient is a 75-year-old female comes to the ED with right-sided face pain that is a chronic issue and would like a medication refill on some oral gel. She sa ys the oral gel helps her face pain. She has no tenderness to right maxillary region. She also has no erythema, swelling or warmth to right side of face. Vitals are stable. Patient was given a dose of Orajel here in the ED and sent home with a prescription for oral gel. She was told to follow-up with her PCP at her next scheduled appointment this coming week. Return to ED precautions given. Patient understood and agreed with plan. Discharge Plan Discharge Patient Disposition: Home Clinical Impression: Encounter for medication refill, Right sided facial pain Condition: Stable Prescriptions: New Orajel 3X Mouth Sores 20-0.1-0.15 % gel 1 ea mucous membrane DAILY PRN (Reason: oral pain) Qty: 5.1 0RF Rx Instructions: Apply on sore area of mouth daily to help with pain No Action cholecalciferol (vitamin D3) 50 mcg (2,000 unit) capsule 50 mcg PO DAILY@0900 0RF oxybutynin chloride 15 mg tablet extended release 24 hr 15 mg PO DAILY@0900 360 Days Qty: 90 3RF losartan 100 mg tablet 100 mg PO DAILY@0900 0RF atorvastatin [Lipitor] 80 mg tablet 80 mg PO DAILY@0900 0RF levothyroxine 100 mcg capsule 100 mcg PO DAILY@0900 0RF tolterodine [Detrol] 2 mg tablet 2 mg PO BID@0900,2100 0RF melatonin 5 mg capsule 7.5 mg PO BEDTIME@2100 0RF metoprolol succinate 50 mg capsule,sprinkle,ER 24hr 75 mg PO DAILY@0900 0RF metformin 500 mg tablet 1,000 mg PO BID@0900,2100 0RF Lesiatri Aerosphere 160-9-4.8 mcg/actuation HFA aerosol inhaler 2 inh inhalation BID 30 Days Qty: 10.7 6RF amlodipine 5 mg tablet 5 mg PO DAILY 0RF docusate sodium [Colace] 100 mg capsule 100 mg PO BID 0RF ropinirole 2 mg tablet 2 mg PO DAILY 0RF torsemide 5 mg tablet 5 mg PO DAILY 0RF Cymbalta 60 mg capsule,delayed release(DR/EC) 60 mg PO DAILY@0900 Qty: 30 2RF nystatin 100,000 unit/mL suspension 500,000 unit PO TID 7 Days Qty: 105 0RF Rx Instructions: administer 1/2 of dose in each side of the mouth clopidogrel 75 mg tablet 75 mg PO DAILY@0900 Qty: 90 3RF gabapentin 800 mg tablet See Rx Instructions .ROUTE .COMPLEX Qty: 90 2RF Dose Instruction: TAKE 1 TABLET BY MOUTH THREE TIMES DAILY Rx Instructions: TAKE 1 TABLET BY MOUTH THREE TIMES DAILY prednisone 5 mg tablet See Rx Instructions PO DAILY Qty: 60 0RF Rx Instructions: 1-2 tablets PO daily; hydroxychloroquine 200 mg tablet 200 mg PO BID Qty: 60 0RF Ingrezza 80 mg capsule 80 mg PO DAILY Qty: 30 2RF nitroglycerin 0.4 mg tablet, sublingual 0.4 mg sublingual Q5MIN PRN (Reason: Chest Pain) 0RF meloxicam 7.5 mg tablet 7.5 mg PO DAILY@0900 0RF ropinirole 2 mg tablet 2 mg PO DAILY@2100 0RF hydrochlorothiazide 25 mg tablet 25 mg PO DAILY@0900 0RF Ventolin HFA 90 mcg/actuation HFA aerosol inhaler See Rx Instructions .ROUTE .COMPLEX 0RF Rx Instructions: inhaled DIRECTED fenofibrate 54 mg tablet 54 mg PO DAILY@2100 0RF Anoro Ellipta 62.5-25 mcg/actuation blister with device See Rx Instructions .ROUTE .COMPLEX 0RF Rx Instructions: USE DIRECTED. potassium chloride 10 mEq tablet extended release 10 meq PO DAILY@0900 0RF Discharge Orders: Discharge ED (Routine); Ordered 08/29/21 Ordered By: Tong Harris Referrals: Cristhian Escalante NP [Primary Care Provider] - Discharge Diet: Regular Discharge Activity: Resume usual activity Activity Restrictions/Additional Instructions: Follow-up with medical provider as directed at your next scheduled appointment.Take medications as prescribed. Return to the ER or your medical provider if condition worsens. Please read and understand discharge instructions. Thank you for choosing [facility] for your healthcare needs today. Please realize this is an emergency room and that we are providing you with a medical screening exam and this may not be complete and all inclusive of all the testing and or work up that you may need to determine your ailment or severity of your illness. It is very important that you follow up as instructed or that you return to the Emergency Department should you have concerns or if your condition changes or worsens in any way. Coding Level of Care Code ED Automated Teller Manager for Aicha Jean Baptiste
[2021-08-29 01:27] VITALS: BP 188/87; PULSE 62; RESP 18; O2SAT 94
[2021-08-29] MEDS: benzocaine 20% 7 gm 1 APPLIC MUCOUS MEM (01:55)
[2021-08-29 02:07] VITALS: BP 189/85; PULSE 62; RESP 16; O2SAT 94
== END 2021-08-29 02:01 | disposition home or self-care (01) ==
PROVIDERS: Emergency Provider Physician Assistant; PCP Nurse Practitioner Family
DX: Z76.0 Encounter for issue of repeat prescription (principal); R51.9 Headache, unspecified
CPT/HCPCS: 99283

== ENCOUNTER → 2021-08-31 12:36 | Outpatient (BNVA) | payer MEDICARE, MEDICAID, SELFPAY | PROVIDERS: PCP Nurse Practitioner Family; Visit Provider Specialist | DX: G50.0 Trigeminal neuralgia (principal); G24.4 Idiopathic orofacial dystonia | CPT/HCPCS: 99214 ==

== ENCOUNTER → 2021-09-15 08:29 | Outpatient (BNVA) | payer MEDICARE, MEDICAID, SELFPAY | PROVIDERS: PCP Nurse Practitioner Family; Visit Provider Specialist | DX: G50.0 Trigeminal neuralgia (principal); G24.4 Idiopathic orofacial dystonia | CPT/HCPCS: 64612; 99212; J0585 ==

== ENCOUNTER 2021-09-24 13:19 | Emergency (ER) | payer MEDICARE, MEDICAID, SELFPAY ==
[2021-09-24 13:31] VITALS: BP 138/71; PULSE 69; RESP 16; TEMP 37.3; O2SAT 94; BMI 28.3
--- NOTE | 2021-09-24 13:39 | CTR_ITS ---
PROCEDURE INFORMATION: Exam: CT Head Without Contrast Exam date and time: 09/24/2021 2:56 PM Age: 75 years old Clinical indication: Injury or trauma; Fall; Blunt trauma (contusions or hematomas); Without loss of consciousness; Additional info: Fall injury, persistent headache TECHNIQUE: Imaging protocol: Computed tomography of the head without contrast. Radiation optimization: All CT scans at this facility use at least one of these dose optimization techniques: automated exposure control; mA and/or kV adjustment per patient size (includes targeted exams where dose is matched to clinical indication); or iterative reconstruction. COMPARISON: CT head wo con* [id number] 04/23/2020 9:53 PM RADIATION DOSE METRICS: Total DLP (mGy-cm): 788.47 FINDINGS: Brain: The no intracranial hemorrhage, edema or other acute abnormalities are seen in the brain. There is chronic atrophy with prominence of the ventricles and sulci. There is no mass effect or midline shift. Cerebral ventricles: The ventricles are prominent due to chronic atrophy. Paranasal sinuses: Visualized sinuses are unremarkable. No fluid levels. Mastoid air cells: Visualized mastoid air cells are well aerated. Bones/joints: Unremarkable. No acute fracture. Soft tissues: Unremarkable. CT/CT head wo con* [id number] IMPRESSION: No acute intracranial abnormality.
--- NOTE | 2021-09-24 13:50 | W.ED.FALL ---
HPI - Fall General: Chief Complaint: Fall Stated Complaint: HEAD PAIN Time Seen by Provider: 09/24/21 13:50 History of Present Illness: Patient comes in today for evaluation of injury sustained during a fall from 2 days ago. Patient was at [facility] and was reaching for something off the top shelf and had reached up and lost her balance causing her to fall onto her left side. Patient did hit her head against the floor and has had a persistent headache since then. Patient also has bruising to the left side. Patient also reports some low back pain and left hip pain. Patient is weightbearing. Associated symptoms-after fall: Reports headache(s); Denies chest pain Review of Systems General: Reports: 10 or more systems reviewed and unremarkable except in HPI and below Card: Denies: chest pain Resp: Denies: dyspnea Musc: Reports: extremity pain Neuro: Reports: headache(s) PFSH ED PFSH: Medical History Bipolar disorder, in partial remission, most recent episode manic Chronic kidney disease (CKD) Chronic obstructive pulmonary disease Coronary artery disease Patient with stents Diabetes mellitus Hyperlipidemia Hypertension Hypothyroidism Incidental pulmonary nodule, > 3mm and < 8mm Lupus Psychiatric care Surgical History History of back surgery (01/17/13) History of bilateral breast reduction surgery History of bilateral tubal ligation History of bladder surgery (~1989) Vaginal Urethral sling with possible anchors . [place]. Sal[place] [facility] History of cholecystectomy History of colonoscopy with polypectomy (~04/20/20) 2017 History of coronary angioplasty with insertion of stent 2006: 2 stents. 2008: 2 stents. History of dilation and curettage (~1982) History of hand surgery Repair right thumb fracture History of hemorrhoidectomy History of right cataract extraction History of vaginal hysterectomy Still has ovaries. Performed in [place], [place]. Performed due to bleeding. Family History Brother Heart disease Hypertension Hypercholesteremia Diabetes Sister Thyroid condition Denies family history of Colon cancer Ovarian cancer Clotting disorder Breast cancer Anesthesia complication Bleeding disorder Uterine cancer Stroke Social History Smoking and tobacco status: former smoker Quit status (tobacco): has quit using tobacco Year quit tobacco: 2019 - 1.5 PPD x 50 Years Former quit date comment: Hx of 1.5 PPD x 50 Years Second hand smoke exposure: No Alcohol intake: former Former alcohol use details: 1984 Physical Exam Const: COMMON NORMALS: alert HENMT: COMMON NORMALS: normocephalic HEAD & SCALP: normocephalic Eye: COMMON NORMALS: Equal, round and reactive pupils present and EOMs intact bilaterally PUPIL: Yes Equal, round and reactive pupils present Neck/C-Spine: COMMON NORMALS: full ROM Chest: CHEST: Yes tenderness (Left posterior bruising, no tenderness or flailing of chest) Resp: COMMON NORMALS: normal respiratory effort and clear to auscultation bilaterally AUSCULTATION: clear to auscultation bilaterally Cardio: COMMON NORMALS: regular rate and regular rhythm RATE: regular rate RHYTHM: regular rhythm GI: COMMON NORMALS: non-tender Back/Pelvis: THORACIC SPINE/UPPER BACK: No thoracic spinal tenderness LUMBAR SPINE/LOWER BACK: Yes paraspinal muscle tenderness and Yes paraspinal muscle spasm Extremity: LEFT UPPER EXTREMITY: Yes upper arm (Bruising noted to the left upper arm) Left upper arm: Yes inspection, Yes palpation and Yes neurovascular exam Neuro: NUVIA COMA SCALE: document GCS findings Nuvia coma scale eye opening: Spontaneous [place] coma scale verbal response: Orientated Nuvia coma scale motor response: Obey commands Nuvia coma scale total score: 15 SENSORIUM/ORIENTATION: Yes alert Psych: COMMON NORMALS: cooperative Course Vital Signs: Vital signs: Vital Signs Temperature 99.2 F 09/24/21 13:31 Pulse Rate 69 09/24/21 13:31 Respiratory Rate 16 09/24/21 13:31 Blood Pressure 138/71 09/24/21 13:31 Pulse Oximetry 94 09/24/21 13:31 MDM - Fall Medical Decision Making Patient comes in for evaluation of injuries after a fall 2 days ago. On exam patient has no focal neurodeficits. Patient does have chronic right side facial drooping. No weakness is noted in the extremities. Patient has tenderness in the lumbar spine and in the left hip area. Bruising is noted on the left side of the patient's body. Patient has normal range of motion of extremities. Differential diagnosis includes fractures, contusions, intracranial bleeding. CT of the head indicated no acute intracranial bleeding, x-rays of the lumbar spine and pelvis showed no signs of acute fracture. Reviewed exam with patient with recommendations for treatment and follow-up. Patient reported understanding and agreed to plan. Lab Data Radiology Impressions Head CT 09/24/21 13:39 IMPRESSION: No acute intracranial abnormality. Lumbar Spine X-Ray 09/24/21 14:07 IMPRESSION: No acute abnormality. Pelvis X-Ray 09/24/21 14:07 IMPRESSION: No acute abnormality. Ultiple clips are present from hernia repair. Discharge Plan Discharge Patient Disposition: Home Clinical Impression: Contusion of multiple sites Fall Qualifiers: Encounter type: initial encounter Qualified Code(s): W19.XXXA - Unspecified fall, initial encounter Head injury Qualifiers: Encounter type: initial encounter Qualified Code(s): S09.90XA - Unspecified injury of head, initial encounter Condition: Stable Prescriptions: No Action cholecalciferol (vitamin D3) 50 mcg (2,000 unit) capsule 50 mcg PO DAILY@0900 0RF oxybutynin chloride 15 mg tablet extended release 24 hr 15 mg PO DAILY@0900 360 Days Qty: 90 3RF losartan 100 mg tablet 100 mg PO DAILY@0900 0RF atorvastatin [Lipitor] 80 mg tablet 80 mg PO DAILY@0900 0RF levothyroxine 100 mcg capsule 100 mcg PO DAILY@0900 0RF tolterodine [Detrol] 2 mg tablet 2 mg PO BID@0900,2100 0RF melatonin 5 mg capsule 7.5 mg PO BEDTIME@2100 0RF metoprolol succinate 50 mg capsule,sprinkle,ER 24hr 75 mg PO DAILY@0900 0RF metformin 500 mg tablet 1,000 mg PO BID@0900,2100 0RF Breztri Aerosphere 160-9-4.8 mcg/actuation HFA aerosol inhaler 2 inh inhalation BID 30 Days Qty: 10.7 6RF amlodipine 5 mg tablet 5 mg PO DAILY 0RF docusate sodium [Colace] 100 mg capsule 100 mg PO BID 0RF ropinirole 2 mg tablet 2 mg PO DAILY 0RF torsemide 5 mg tablet 5 mg PO DAILY 0RF Cymbalta 60 mg capsule,delayed release(DR/EC) 60 mg PO DAILY@0900 Qty: 30 2RF nystatin 100,000 unit/mL suspension 500,000 unit PO TID 7 Days Qty: 105 0RF Rx Instructions: administer 1/2 of dose in each side of the mouth carbamazepine 200 mg tablet 200 mg PO BID Qty: 60 3RF diazepam 10 mg tablet 10 mg PO BID PRN (Reason: anxiety) 1 Days Qty: 2 3RF Rx Instructions: Take 1-2 tablets as needed prior to procedure clopidogrel 75 mg tablet 75 mg PO DAILY@0900 Qty: 90 3RF prednisone 5 mg tablet See Rx Instructions PO DAILY Qty: 60 0RF Rx Instructions: 1-2 tablets PO daily; hydroxychloroquine 200 mg tablet 200 mg PO BID Qty: 60 0RF Ingrezza 80 mg capsule 80 mg PO DAILY Qty: 30 2RF gabapentin 800 mg tablet See Rx Instructions .ROUTE .COMPLEX Qty: 90 1RF Dose Instruction: TAKE 1 TABLET BY MOUTH THREE TIMES DAILY Rx Instructions: TAKE 1 TABLET BY MOUTH THREE TIMES DAILY nitroglycerin 0.4 mg tablet, sublingual 0.4 mg sublingual Q5MIN PRN (Reason: Chest Pain) 0RF meloxicam 7.5 mg tablet 7.5 mg PO DAILY@0900 0RF ropinirole 2 mg tablet 2 mg PO DAILY@2100 0RF hydrochlorothiazide 25 mg tablet 25 mg PO DAILY@0900 0RF Ventolin HFA 90 mcg/actuation HFA aerosol inhaler See Rx Instructions .ROUTE .COMPLEX 0RF Rx Instructions: inhaled DIRECTED fenofibrate 54 mg tablet 54 mg PO DAILY@2100 0RF Anoro Ellipta 62.5-25 mcg/actuation blister with device See Rx Instructions .ROUTE .COMPLEX 0RF Rx Instructions: USE DIRECTED. potassium chloride 10 mEq tablet extended release 10 meq PO DAILY@0900 0RF Orajel 3X Mouth Sores 20-0.1-0.15 % gel 1 ea mucous membrane DAILY PRN (Reason: oral pain) Qty: 5.1 0RF Rx Instructions: Apply on sore area of mouth daily to help with pain Discharge Orders: Discharge ED (Routine); Ordered 09/24/21 Ordered By: Yoan Tamayo Referrals: Cristhian Escalante NP [Primary Care Provider] - Discharge Diet: Usual diet Discharge Activity: Increase activity as tolerated Patient Instructions: Contusion in Adults (ED) Activity Restrictions/Additional Instructions: Activity as tolerated. Gentle stretching and range of motion exercises. Use acetaminophen or ibuprofen for pain. Drink plenty of water with medications. Follow-up with primary care for further instructions. Return to ER for new concerns. Coding Level of Care Code ED Churn Drill Operator for Aicha Jean Baptiste
--- NOTE | 2021-09-24 14:07 | XRR_ITS ---
PROCEDURE INFORMATION: Exam: XR Lumbosacral Spine Exam date and time: 09/24/2021 2:18 PM Age: 75 years old Clinical indication: Injury or trauma; Fall; Blunt trauma (contusions or hematomas); Additional info: Fall injury TECHNIQUE: Imaging protocol: XR of the lumbosacral spine. Views: 2 or 3 views. COMPARISON: CR XR sacrum coccyx min 2V [id number] 07/19/2019 9:04 PM FINDINGS: Bones/joints: Patient has undergone posterior surgical fusion at L5-S1. No fracture, malalignment or acute abnormalities are seen in the lumbar spine. Mild degenerative changes are present with disc space narrowing and small osteophytes. Soft tissues: Unremarkable. XR/XR lumbar spine 2-3V* [id number] IMPRESSION: No acute abnormality.
--- NOTE | 2021-09-24 14:07 | XRR_ITS ---
PROCEDURE INFORMATION: Exam: XR Pelvis Exam date and time: 09/24/2021 2:18 PM Age: 75 years old Clinical indication: Injury or trauma; Fall; Blunt trauma (contusions or hematomas); Does not apply; Pelvic region; Additional info: Fall injury TECHNIQUE: Imaging protocol: XR pelvis. Views: 1 or 2 view. COMPARISON: CR XR hip BI 3-4V wo/w pel [id number] 02/07/2021 11:43 AM FINDINGS: Bones/joints: Patient has undergone L5-S1 surgical fusion. M no acute bony abnormality. Soft tissues: Unremarkable. XR/XR pelvis 1-2V* [id number] IMPRESSION: No acute abnormality. Ultiple clips are present from hernia repair.
== END 2021-09-24 15:21 | disposition home or self-care (01) ==
PROVIDERS: Emergency Provider Nurse Practitioner Family; PCP Nurse Practitioner Family
DX: S40.022A Contusion of left upper arm, initial encounter (principal); S20.212A Contusion of left front wall of thorax, initial encounter; S09.90XA Unspecified injury of head, initial encounter; W01.0XXA Fall on same level from slipping, tripping and stumbling without subsequent striking against object, initial encounter; Y92.512 Supermarket, store or market as the place of occurrence of the external cause; M25.552 Pain in left hip; M54.50 Low back pain, unspecified; R51.9 Headache, unspecified
CPT/HCPCS: 70450; 72100; 72170; 99283

== ENCOUNTER → 2021-10-06 13:52 | Outpatient (BNVA) | payer MEDICARE, MEDICAID, SELFPAY | PROVIDERS: PCP Nurse Practitioner Family; Visit Provider Internal Medicine Cardiovascular Disease | DX: I25.10 Atherosclerotic heart disease of native coronary artery without angina pectoris (principal); I12.9 Hypertensive chronic kidney disease with stage 1 through stage 4 chronic kidney disease, or unspecified chronic kidney disease; E11.22 Type 2 diabetes mellitus with diabetic chronic kidney disease; N18.9 Chronic kidney disease, unspecified; Z79.84 Long term (current) use of oral hypoglycemic drugs; Z87.891 Personal history of nicotine dependence; R06.00 Dyspnea, unspecified; J44.9 Chronic obstructive pulmonary disease, unspecified; M32.9 Systemic lupus erythematosus, unspecified | CPT/HCPCS: 99214 ==

== ENCOUNTER 2021-10-13 09:18 | Outpatient (CLI) | payer MEDICARE, MEDICAID, SELFPAY ==
--- NOTE | 2021-10-13 09:29 | FL_ITS ---
WS: [id number] FL barium swallow [id number] REASON FOR EXAM: DYSPHAGIA FLUOROSCOPY TIME: 2min [id number] # OF SPOT FILMS: 7 Patient was examined in the standing AP and lateral projections and in the prone XIE and supine LPO p ositions. The swallowing of barium was evaluated from the oropharynx to the gastric fundus with fluor oscopy and multiple spot films. FINDINGS: In the oral pharynx/hypopharynx there is noted to be significant penetration over the epiglottis with out overt aspiration. This abnormality could be better and more fully evaluated by a modified barium swallow supervised by the speech therapy department. From the thoracic inlet distally the esophagus demonstrated severe tertiary contractions which lead t o significant retention of barium with dilatation of the esophagus. There is intermittent cephalic re flux of the retained barium within the esophagus. There is a moderate sized hiatal hernia with no esophageal stricture or significant Schatzki ring. Th ere was gastric reflux. FL/FL barium swallow [id number] IMPRESSION: Abnormal esophageal motility with the potential for aspiration as above. IMPORTANT NOTE: Patient complained of developing facial droop since a fall with head trauma romy roximately 2 weeks ago. She reported that she had a head CT scan at that time t hat was negative. The right side of her mouth does droop and when she smiles it does not move romy ropriately. Her speech is clear and she demonstrated no right extremities weakn ess. She reports she is on anticoagulant therapy. It would be very appropriate to follow up with an MRI of the brain as soon as c linically warranted as she claims this is a new problem for her and it could be related to recent stroke or less likely intracranial hemorrhage.
== END 2021-10-13 09:19 | disposition home or self-care (01) ==
LOC: RAD 09:19
PROVIDERS: PCP Nurse Practitioner Family; Visit Provider Nurse Practitioner Family
DX: R13.10 Dysphagia, unspecified (principal)
CPT/HCPCS: 74220

== ENCOUNTER 2021-11-03 11:29 | Outpatient (CLI) | payer MEDICARE, MEDICAID, SELFPAY ==
--- NOTE | 2021-11-03 12:25 | MR_ITS ---
WS: [id number] MRI BRAIN WITHOUT CONTRAST HISTORY: HX OF STROKE, FACIAL DROOP COMPARISON: CT head 09/24/2021, MRI brain 08/26/2015 TECHNIQUE: Diffusion imaging, multiplanar T1, T2 and FLAIR imaging obtained. No evidence for acute infarct or hemorrhage. Alvarez-white matter differentiation is normal. There is a focal area of cortical thickening involving the posterior RIGHT frontal lobe measuring 20 x 15 mm. Mild cortical thickening and this is of decreased signal on the T1 sequences and moderately increased on the T2 sequence. This was also present in 2016 without interval change. 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 Mild atrophy resulting in mild ventricular dilatation. Mild small vessel ischemic disease. No inferior displacement of cerebellar tonsils. The sella turcica and pituitary gland are unremarkabl e. Dural venous sinuses and [place] demonstrate no abnormality on this unenhanced studies. Paranasal sinuses: Clear. Mastoid air cells: Normal. Calvarium and scalp: Intact. MR/MR head wo con* [id number] IMPRESSION: 1. Stable MRI brain since 08/26/2015. 2. No acute infarct or hemorrhage. 3. Mild atrophy and small vessel ischemic disease. 4. Stable posterior RIGHT frontal lobe cortical thickening as described above. This area measures 20 x 15 mm and is unchanged since 08/26/2015. May be focal c ortical dysplasia or benign lesion. Due to long-term stability no additional is imaging is necessary at this time.
== END 2021-11-03 11:30 | disposition home or self-care (01) ==
LOC: RAD 11:29
PROVIDERS: PCP Nurse Practitioner Family; Visit Provider Nurse Practitioner Family
DX: Z86.79 Personal history of other diseases of the circulatory system (principal); R29.810 Facial weakness
CPT/HCPCS: 70551

== ENCOUNTER 2021-11-21 15:15 | Outpatient (CLI) | payer MEDICARE, MEDICAID, SELFPAY ==
--- NOTE | 2021-11-21 15:23 | CTR_ITS ---
PROCEDURE INFORMATION: Exam: CT Chest With Contrast; Diagnostic Exam date and time: 11/21/2021 4:21 PM Age: 76 years old Clinical indication: Abnormal findings; Abnormal radiologic exam of lung or chest; Additional info: Abnormal chest CT scan/lung nodule TECHNIQUE: Imaging protocol: Diagnostic computed tomography of the chest with contrast. Radiation optimization: All CT scans at this facility use at least one of these dose optimization techniques: automated exposure control; mA and/or kV adjustment per patient size (includes targeted exams where dose is matched to clinical indication); or iterative reconstruction. Contrast material: OMNI 350; Contrast volume: 95 ml; Contrast route: INTRAVENOUS (IV); COMPARISON: 1. CT chest w con* [id number] 10/15/2020 10:[address] chest w con* [id number] 01/10/2019 11:[address] chest w con* [id number] 10/01/2019 12:31 PM RADIATION DOSE METRICS: Total DLP (mGy-cm): 767.44 FINDINGS: Lungs: Severe centrilobular emphysema. Stable 6 mm triangular shaped nodule or intrapulmonary node in the left lower lobe, series 5, image 34. Stable 4 mm posterior left upper lobe nodule, image 16. New 6 mm probable focal scar in the left upper lobe, image 11. Pleural spaces: Unremarkable. No pneumothorax. No pleural effusion. Heart: Coronary artery calcifications and/or stents. Lymph nodes: No enlarged lymph nodes. Vasculature: Unremarkable. No aortic aneurysm. Gallbladder and bile ducts: Cholecystectomy. Kidneys and ureters: Left renal cysts, Hounsfield units less than 20. 2.3 cm left cortical renal lesion, Hounsfield units 44. Bones/joints: Unremarkable. No acute fracture. Soft tissues: Unremarkable. CT/CT chest w con* [id number] IMPRESSION: 1. New 6 mm nodule or nodular scar in the left upper lobe. For patients at low risk (minimal or absent history of smoking and of other known risk factors), recommend CT Chest at 6-12 months, then consider CT Chest at 18-24 months. For patients at high risk (history of smoking or of other known risk factors), recommend CT Chest at 6-12 months, then CT Chest at 18-24 months. (Reference: Joseph). 2. Greater than 2 year stability of left pulmonary nodules, considered benign. 3. 2.3 cm indeterminate left renal lesion. A malignant neoplasm is not excluded. Recommend non-emergent MRI without and with contrast or non-emergent CT without and with contrast. MRI is preferred for masses under 1.5 cm. References: Joseph Eason et al. Guidelines for Management of Incidental Pulmonary Nodules Detected on CT Images: From the Fleischner Society 2017. Radiology. 2017;284(1):228-243. COMMENTS: Consistent with the [employer]'s Incidental Findings Committee white paper (J Am Estrelal Radiol 2018): Any incidental renal lesion less than 1 cm or classified as too small to characterize, or any incidental cystic renal lesion characterized as simple-appearing, is likely benign. No follow-up imaging is recommended for these lesions per consensus recommendations based on imaging criteria.
[2021-11-21] MEDS: iodixanol 320 mg/mL 100mL Btl IV (16:25)
== END 2021-11-21 15:16 | disposition home or self-care (01) ==
LOC: RAD 15:15
PROVIDERS: PCP Nurse Practitioner Family; Visit Provider Family Medicine
DX: R91.8 Other nonspecific abnormal finding of lung field (principal); R91.1 Solitary pulmonary nodule; N28.9 Disorder of kidney and ureter, unspecified
CPT/HCPCS: 71260

== ENCOUNTER → 2021-11-29 12:56 | Outpatient (BNVA) | payer MEDICARE, MEDICAID, SELFPAY | PROVIDERS: PCP Nurse Practitioner Family; Visit Provider Thoracic Surgery (Cardiothoracic Vascular Surgery) | DX: R91.1 Solitary pulmonary nodule (principal) | CPT/HCPCS: 99203 ==

== ENCOUNTER 2021-12-07 15:30 | Outpatient (CLI) | payer MEDICARE, MEDICAID, SELFPAY ==
--- NOTE | 2021-12-07 15:41 | MM_ITS ---
WS: [id number] BILATERAL 3D TOMOSYNTHESIS DIGITAL SCREENING MAMMOGRAPHY WITH CAD CLINICAL INFORMATION: SCREEN HISTORY: Screening mammogram. No current complaints. COMPARISON: March 29, 2020 TECHNIQUE: Bilateral CC and MLO views. FINDINGS: History of bilateral breast reduction Scattered fibroglandular densities bilaterally. Vascular calcification. Eggshell calcification with f at necrosis RIGHT breast. No suspicious focal mass, asymmetry, calcifications, or architectural disto rtion. No evidence of malignancy. MM/[place] [id number] IMPRESSION: BI-RADS: 2-Benign FOLLOW UP: 1 Year Follow-up Recommend return to annual screening mammography.
== END 2021-12-07 15:31 | disposition home or self-care (01) ==
LOC: RAD 15:31
PROVIDERS: PCP Nurse Practitioner Family; Visit Provider Nurse Practitioner Family
DX: Z12.31 Encounter for screening mammogram for malignant neoplasm of breast (principal)
CPT/HCPCS: 77063; 77067

== ENCOUNTER → 2021-12-08 08:37 | Outpatient (BNVA) | payer MEDICARE, MEDICAID, SELFPAY | PROVIDERS: PCP Nurse Practitioner Family; Visit Provider Specialist | DX: G50.0 Trigeminal neuralgia (principal); G24.4 Idiopathic orofacial dystonia | CPT/HCPCS: 64612; J0585 ==

== ENCOUNTER 2022-01-02 13:24 | Outpatient (CLI) | payer MEDICARE, MEDICAID, SELFPAY ==
--- NOTE | 2022-01-02 13:32 | MR_ITS ---
WS: [id number] MRI ABDOMEN with and without CONTRAST. COMPARISON: CT 11/21/2021 Multiplanar, multisequence imaging is performed with and without contrast. Sagittal and axial T1 fat sat sequences post-MultiHance 18 cc IV. Kidneys are normal size. There are multiple cortical cysts without enhancement on the RIGHT. There is no solid renal mass or obstruction. Multiple cystic masses are also noted within the LEFT kidney. Th e mass of concern on the prior CT is in the mid lateral LEFT kidney measuring 2.2 x 2.1 cm. There is no enhancement. Signal is slightly decreased as compared to the additional cystic masses in the LEFT kidney but there is no enhancement. There is probably slight increased protein content may be from pr ior hemorrhage. No solid enhancing masses are identified within either kidney. Visualized liver is normal size. No cystic masses within the liver. Gallbladder is not identified. Ma y have been surgically removed although that history was not obtained. The portal vein is normal. Nor mal size spleen. Normal adrenal glands. No ascites or adenopathy. MR/MR abdomen wo/w con* [id number] IMPRESSION: 1. Indeterminate LEFT renal mass seen on recent CT does not enhance. Consisten t with a cyst containing increased protein content. 2. Additional smaller bilateral cortical cysts. 3. No bile duct dilatation. No ascites. No adenopathy.
[2022-01-02] MEDS: gadobenate dimeglumine 20 mL vial IV (15:08)
== END 2022-01-02 13:25 | disposition home or self-care (01) ==
LOC: RAD 13:25
PROVIDERS: PCP Nurse Practitioner Family; Visit Provider Family Medicine
DX: N28.9 Disorder of kidney and ureter, unspecified (principal)
CPT/HCPCS: 74183

== ENCOUNTER → 2022-01-26 11:01 | Outpatient (BNVA) | payer MEDICARE, MEDICAID, SELFPAY | PROVIDERS: PCP Nurse Practitioner Family; Visit Provider Internal Medicine | DX: R76.8 Other specified abnormal immunological findings in serum (principal); M70.60 Trochanteric bursitis, unspecified hip; M54.2 Cervicalgia; M06.9 Rheumatoid arthritis, unspecified; Y93.9 Activity, unspecified | CPT/HCPCS: 99214 ==

== ENCOUNTER 2022-02-07 16:07 | Emergency (ER) | payer MEDICARE, MEDICAID, SELFPAY ==
[2022-02-07 17:08] VITALS: BP 160/93; PULSE 61; RESP 18; TEMP 36.7; O2SAT 94; BMI 31.1
--- NOTE | 2022-02-07 17:41 | XRR_ITS ---
PROCEDURE INFORMATION: Exam: XR Right Ribs Exam date and time: 02/07/2022 6:00 PM Age: 76 years old Clinical indication: Chest wall pain; Right; Additional info: Fall with contusion TECHNIQUE: Imaging protocol: Radiologic exam of the Right ribs. Views: 2 views. COMPARISON: CT chest w con* [id number] 11/21/2021 4:21 PM FINDINGS: Bones/joints: Normal. Soft tissues: Normal. XR/XR ribs RT 2V* [id number] IMPRESSION: No acute findings.
--- NOTE | 2022-02-07 17:42 | ED_ITS ---
HPI - Fall General: Chief Complaint: Fall Stated Complaint: rib pain Time Seen by Provider: 02/07/22 17:19 History of Present Illness: Patient reports that she was walking up some concr ete steps at her sister's house yesterday and missed a step. She reports that she fell onto her right knee and elbow onto the concrete steps and then her side into the door frame. She reports that her knee and elbow are sore however she is not concerned about them. She reports that she has significant bruising on her right side and has significant pain with palpation to that area. She denies any shortness of breath but does state that it is painful to take a deep breath. She denies hitting her head or having any loss of consciousness. Associated symptoms-after fall: Reports headache(s); Denies chest pain Review of Systems Const: Denies: fever(s) or chills Card: Denies: chest pain or palpitations Resp: Reports: other (Pain with deep inspiration right side); Denies: dyspnea Musc: Reports: other (Tenderness to palpation right lateral side ribs under axilla) Neuro: Reports: headache(s); Denies: numbness in extremities, weakness in extremities, lack of coordination or dizziness PFSH ED PFSH: Medical History Alcohol use disorder in remission Amphetamine use disorder, moderate, in sustained remission Bipolar disorder, in partial remission, most recent episode manic Cannabis use disorder, mild, in sustained remission, abuse Chronic kidney disease (CKD) Chronic obstructive pulmonary disease Coronary artery disease Patient with stents Diabetes mellitus Hyperlipidemia Hypertension Hypothyroidism Incidental pulmonary nodule, > 3mm and < 8mm Lupus Major depressive disorder, recurrent, in partial remission Psychiatric care Tobacco use disorder, mild, in sustained remission Surgical History History of back surgery (01/17/13) History of bilateral breast reduction surgery History of bilateral tubal ligation History of bladder surgery (~1989) Vaginal Urethral sling with possible anchors . Performed by Dr. Salas at [facility] [place]. History of cholecystectomy History of colonoscopy with polypectomy (~04/20/20) 2017 History of coronary angioplasty with insertion of stent 2006: 2 stents. 2008: 2 stents. History of dilation and curettage (~1982) History of hand surgery Repair right thumb fracture History of hemorrhoidectomy History of right cataract extraction History of vaginal hysterectomy Still has ovaries. Performed in [place], [place]. Performed due to bleeding. Family History Brother Heart disease Hypertension Hypercholesteremia Diabetes Sister Thyroid condition Denies family history of Colon cancer Ovarian cancer Clotting disorder Breast cancer Anesthesia complication Bleeding disorder Uterine cancer Stroke Social History Smoking and tobacco status: former smoker Physical Exam Const: COMMON NORMALS: patient oriented x3 and alert OTHER: Patient does appear to be in pain Neck/C-Spine: COMMON NORMALS: no JVD Chest: OTHER: Tenderness to palpation right lateral side under axilla. Moderate bruising appreciated. No bony deformities appreciated or step-offs however exam is limited by patient's pain Chest images (female): 1. Area of bruising and tenderness Resp: COMMON NORMALS: normal respiratory effort, No use of accessory muscles and clear to auscultation bilaterally AUSCULTATION: clear to auscultation bilaterally Cardio: COMMON NORMALS: no JVD, regular rate, regular rhythm, S1 normal heart sound present, S2 normal heart sound present and No murmurs present (Cardio) RATE: regular rate RHYTHM: regular rhythm HEART SOUNDS: S1 normal heart sound present and S2 normal heart sound present Neuro: COMMON NORMALS: patient oriented x3 SENSORIUM/ORIENTATION: Yes alert Course Vital Signs: Vital signs: Vital Signs Temperature 98.1 F 02/07/22 17:08 Pulse Rate 61 02/07/22 17:08 Respiratory Rate 18 02/07/22 17:08 Blood Pressure 160/93 02/07/22 17:08 Pulse Oximetry 94 02/07/22 17:08 Oxygen Delivery Me thod 02/07/22 17:08 MDM - Fall Medical Decision Making Consider rib contusion versus rib fracture. Cranial nerves II through XII grossly intact patient denies hitting her head or losing consciousness. Patient is on Plavix. X-ray right side ribs ordered. X-ray does not show any acute osseous deformity. We will treat patient for rib contusion. Discussed conservative measures at home. Provide patient with muscle relaxer medication. Encourage splinting so that she can cough and deep breathe. Follow-up with primary care as needed. Return to the ER for any new or worsening symptoms. Lab Data Radiology Impressions Ribs X-Ray 02/07/22 17:41 IMPRESSION: No acute findings. Discharge Plan Discharge Patient Disposition: Home Clinical Impression: Contusion of rib on right side Condition: Stable Prescriptions: New baclofen 10 mg tablet 10 mg PO Q8H PRN (Reason: muscle spasm/pain) Qty: 10 0RF No Action cholecalciferol (vitamin D3) 50 mcg (2,000 unit) capsule 50 mcg PO DAILY@0900 losartan 100 mg tablet 100 mg PO DAILY@0900 atorvastatin [Lipitor] 80 mg tablet 80 mg PO DAILY@0900 levothyroxine 100 mcg capsule 100 mcg PO DAILY@0900 tolterodine [Detrol] 2 mg tablet 2 mg PO BID@0900,2100 melatonin 5 mg capsule 7.5 mg PO BEDTIME@2100 metoprolol succinate 50 mg capsule,sprinkle,ER 24hr 75 mg PO DAILY@0900 metformin 500 mg tablet 1,000 mg PO BID@0900,2100 Breztri Aerosphere 160-9-4.8 mcg/actuation HFA aerosol inhaler 2 inh inhalation BID 30 Days Qty: 10.7 6RF amlodipine 5 mg tablet 5 mg PO DAILY docusate sodium [Colace] 100 mg capsule 100 mg PO BID ropinirole 2 mg tablet 2 mg PO DAILY torsemide 5 mg tablet 5 mg PO DAILY oxybutynin chloride 10 mg tablet extended release 24hr 20 mg PO DAILY@0900 90 Days Qty: 180 3RF Rx Instructions: Take 2 tablets (20mg) by mouth daily. Cymbalta 60 mg capsule,delayed release(DR/EC) 60 mg PO DAILY@0900 Qty: 30 2RF Ingrezza 80 mg capsule 80 mg PO DAILY Qty: 30 2RF prednisone 5 mg tablet See Rx Instructions PO DAILY Qty: 30 0RF Rx Instructions: 1-2 daily orally daily; carbamazepine 200 mg tablet 200 mg PO BID Qty: 60 3RF clopidogrel 75 mg tablet 75 mg PO DAILY@0900 Qty: 90 3RF prednisone 5 mg tablet See Rx Instructions PO DAILY Qty: 60 0RF Rx Instructions: 1-2 tablets PO daily; hydroxychloroquine 200 mg tablet 200 mg PO BID Qty: 60 0RF gabapentin 800 mg tablet See Rx Instructions .ROUTE .COMPLEX Qty: 90 5RF Dose Instruction: TAKE 1 TABLET BY MOUTH THREE TIMES DAILY Rx Instructions: TAKE 1 TABLET BY MOUTH THREE TIMES DAILY nitroglycerin 0.4 mg tablet, sublingual 0.4 mg sublingual Q5MIN PRN (Reason: Chest Pain) meloxicam 7.5 mg tablet 7.5 mg PO DAILY@0900 hydrochlorothiazide 25 mg tablet 25 mg PO DAILY@0900 Ventolin HFA 90 mcg/actuation HFA aerosol inhaler See Rx Instructions .ROUTE .COMPLEX Rx Instructions: inhaled DIRECTED fenofibrate 54 mg tablet 54 mg PO DAILY@2100 potassium chloride 10 mEq tablet extended release 10 meq PO DAILY@0900 Discharge Orders: Discharge ED (Routine); Ordered 02/07/22 Ordered By: Denise Mckeon Referrals: Cristhian Escalante NP [Primary Care Provider] - Discharge Diet: Usual diet Discharge Activity: Increase activity as tolerated Patient Instructions: Baclofen (By mouth), Rib Contusion (ED) Activity Restrictions/Additional Instructions: Use the baclofen as needed/as directed for muscle spasming and pain. Do not drive after taking baclofen. Use extra caution as this medication can make you drowsy and increase your risk of fall. You may start with half a tablet for the first dose to make sure how this medication affects you. Do not drink or take any other medications that make you sleepy while taking baclofen. Be sure to splint the area so that you are coughing and deep breathing every hour. Follow- up with primary care provider as needed. Return to the ER for any new or worsening symptoms. Coding Level of Care Code ED Air Control/Anti Air Warfare Officer for Aicha Fwaaron Exam Expanded Problem Focused
== END 2022-02-07 19:06 | disposition home or self-care (01) ==
PROVIDERS: Emergency Provider Nurse Practitioner Family; PCP Nurse Practitioner Family
DX: S20.211A Contusion of right front wall of thorax, initial encounter (principal); Z79.84 Long term (current) use of oral hypoglycemic drugs; Z87.891 Personal history of nicotine dependence; J44.9 Chronic obstructive pulmonary disease, unspecified; I25.10 Atherosclerotic heart disease of native coronary artery without angina pectoris; E11.9 Type 2 diabetes mellitus without complications; E78.5 Hyperlipidemia, unspecified; I10 Essential (primary) hypertension; Z95.5 Presence of coronary angioplasty implant and graft; W10.8XXA Fall (on) (from) other stairs and steps, initial encounter
CPT/HCPCS: 71100; 99283

== ENCOUNTER → 2022-02-27 08:50 | Outpatient (BNVA) | payer MEDICARE, MEDICAID, SELFPAY | PROVIDERS: PCP Nurse Practitioner Family; Visit Provider Podiatrist Foot & Ankle Surgery | DX: B35.1 Tinea unguium (principal); I73.9 Peripheral vascular disease, unspecified; L60.0 Ingrowing nail; L84 Corns and callosities; Z79.84 Long term (current) use of oral hypoglycemic drugs | CPT/HCPCS: 11056; 11721; 99204 ==

== ENCOUNTER → 2022-05-22 11:07 | Outpatient (BNVA) | payer MEDICARE, MEDICAID, SELFPAY | PROVIDERS: PCP Nurse Practitioner Family; Visit Provider Podiatrist Foot & Ankle Surgery | DX: I73.9 Peripheral vascular disease, unspecified (principal); B35.1 Tinea unguium; L60.0 Ingrowing nail; L84 Corns and callosities; E11.9 Type 2 diabetes mellitus without complications; Z79.84 Long term (current) use of oral hypoglycemic drugs | CPT/HCPCS: 11721 ==

== ENCOUNTER 2022-05-24 15:15 | Outpatient (CLI) | payer MEDICARE, MEDICAID, SELFPAY ==
--- NOTE | 2022-05-24 08:00 | CT_ITS ---
WS: [id number] CT CHEST TECHNIQUE: Contrast enhanced CT of the chest with coronal and sagittal reformatted images. CLINICAL INFORMATION: lung nodule COMPARISON: CT 11/21/21 DLP: [address] scans at [facility] use at least one of these dose optimization techniques: automated e xposure control; mA and/or kV adjustment per patient size (includes targeted exams where dose is matc hed to clinical indication); or iterative reconstruction. FINDINGS: Moderate chronic emphysematous changes. No acute pulmonary infiltrates. No focal pneumonia or pleural fluid. Aortic calcification. Coronary calcification. Moderate aortic atheromatous disease. No axilla ry lymphadenopathy. Cholecystectomy clips. Adrenal glands are normal. Splenic artery calcification. Normal GE junction. S piculated nodule in the LEFT upper lobe measuring 8 mm in maximum dimension on the coronal imaging. T his is progressed since 12/05 with a more solid appearance today. Noncalcified nodule in the LEFT upper lobe posteriorly measuring 4.8 mm. This is unchanged from previ ous. This is also stable compared to October 15, 2020.Noncalcified nodule LEFT lower lobe laterally alicia uring 6 mm. This is unchanged. Subsegmental atelectasis in the lingula. CT/CT chest w con* [id number] IMPRESSION: 1. 8 mm nodule in the LEFT upper lobe is increased in size with spiculated mar gins. This has a suspicious appearance and consider further evaluation with PET /CT. This is borderline in size for diagnostic PET CT evaluation. However this isn't accessible to percutaneous biopsy due to high lung apex location and size . Recommend PET/CT and/or [address] follow-up. 2. Additional subcentimeter nodules described above are unchanged. 3. Moderate chronic emphysematous changes. 4. No mediastinal or hilar lymphadenopathy. 5. Aortic calcification. Coronary calcification.
[2022-05-24] MEDS: iohexol 350 mg/mL 500 mL Btl (per mL) IV (15:54)
== END 2022-05-24 15:16 | disposition home or self-care (01) ==
LOC: RAD 05-25 11:17
PROVIDERS: PCP Family Medicine; Visit Provider Thoracic Surgery (Cardiothoracic Vascular Surgery)
DX: R91.1 Solitary pulmonary nodule (principal)
CPT/HCPCS: 71260; Q9967

== ENCOUNTER → 2022-06-01 07:44 | Outpatient (BNVA) | payer MEDICARE, MEDICAID, SELFPAY | PROVIDERS: PCP Family Medicine; Visit Provider Thoracic Surgery (Cardiothoracic Vascular Surgery) | DX: R91.1 Solitary pulmonary nodule (principal) | CPT/HCPCS: 99213 ==

== ENCOUNTER → 2022-06-15 14:19 | Outpatient (BNVA) | payer MEDICARE, MEDICAID, SELFPAY | PROVIDERS: PCP Family Medicine; Visit Provider Specialist | DX: G24.4 Idiopathic orofacial dystonia (principal); M16.10 Unilateral primary osteoarthritis, unspecified hip | CPT/HCPCS: G0463 ==

== ENCOUNTER → 2022-08-07 10:07 | Outpatient (BNVA) | payer MEDICARE, MEDICAID, OTHER, SELFPAY | PROVIDERS: PCP Family Medicine; Visit Provider Podiatrist Foot & Ankle Surgery | DX: I73.9 Peripheral vascular disease, unspecified (principal); B35.1 Tinea unguium; E11.9 Type 2 diabetes mellitus without complications; Z79.84 Long term (current) use of oral hypoglycemic drugs | CPT/HCPCS: 11721 ==

== ENCOUNTER 2022-08-23 13:56 | Emergency (ER) | payer MEDICARE, MEDICAID, SELFPAY ==
[2022-08-23] VITALS (10 sets, daily range): BP systolic 94–122; BP diastolic 48–78; PULSE 56–66; RESP 14–21; TEMP 36.7; O2SAT 90–96
--- NOTE | 2022-08-23 14:00 | PC.NURSE ---
Pt placed on bedside pvc monitor
--- NOTE | 2022-08-23 14:10 | W.ED.SYNCOPE ---
HPI - Syncope General: Chief Complaint: Syncope Stated Complaint: Syncopal Episode, Left shoulder/ Hip Pain Time Seen by Provider: 08/23/22 14:06 History of Present Illness: Ms Daniels is a 76-year-old lady with history of COPD, CAD, CKD, hypertension, hyperlipidemia, diabetes presenting to the emergency department for syncopal episode with associated pain. She reports being at her baseline health and was walking out to her van when all of a sudden her vision went black and she passed out. Denies preceding chest pain or shortness of breath. Denies frequent similar episodes in the past. She is unsure of how long she was unconscious for, she was able to ambulate after however endorses left shoulder and left hip pain. Intensity symptoms is moderate. Course has persisted. Worse with movement and palpation. No other specific changes in health, exacerbating, or alleviating factors identified. Onset (ago): minute(s) Prodromal symptoms: vision changes Witnessed: No Injuries sustained associated with event: neck, head, LUE and LLE Review of Systems General: Reports: 10 or more systems reviewed and unremarkable except in HPI and below PFSH ED PFSH: Medical History Alcohol use disorder in remission Amphetamine use disorder, moderate, in sustained remission Bipolar disorder, in partial remission, most recent episode manic Cannabis use disorder, mild, in sustained remission, abuse Chronic kidney disease (CKD) Chronic obstructive pulmonary disease Coronary artery disease Patient with stents Diabetes mellitus Hyperlipidemia Hypertension Hypothyroidism Incidental pulmonary nodule, > 3mm and < 8mm Lupus Major depressive disorder, recurrent, in partial remission Psychiatric care Tobacco use disorder, mild, in sustained remission Surgical History History of back surgery (01/17/13) History of bilateral breast reduction surgery History of bilateral tubal ligation History of bladder surgery (~1989) Vaginal Urethral sling with possible anchors . [place] [facility] [place] of cholecystectomy History of colonoscopy with polypectomy (~04/20/20) 2017 History of coronary angioplasty with insertion of stent 2006: 2 stents. 2008: 2 stents. History of dilation and curettage (~1982) History of hand surgery Repair right thumb fracture History of hemorrhoidectomy History of right cataract extraction History of vaginal hysterectomy Still has ovaries. Performed in [place], [place]. Performed due to bleeding. Family History Brother Heart disease Hypertension Hypercholesteremia Diabetes Sister Thyroid condition Denies family history of Colon cancer Ovarian cancer Clotting disorder Breast cancer Anesthesia complication Bleeding disorder Uterine cancer Stroke Social History Smoking and tobacco status: former smoker Smoking risk assessment/counseling performed?: No Counseling given: No Substance/Drug Use: never Counseling given: No Lives independently: Yes Household members: none Marital status: Current occupational status: disabled Do you think of yourself as: Straight/Heterosexual Current gender identity: Female Physical Exam Const: COMMON NORMALS: patient oriented x3 and alert GENERAL APPEARANCE: cooperative and well developed HENMT: COMMON NORMALS: normocephalic and atraumatic HEAD & SCALP: normocephalic and atraumatic OTHER: No mcgraw signs or raccoon eyes. No hemotympanum. No otorrhea or rhinorrhea. Jaw alignment normal. Dentition baseline. No obvious bony step-offs. No septal hematoma. No evidence of ocular entrapment. Eye: COMMON NORMALS: conjunctivae normal CONJUNCTIVA: Yes conjunctivae normal SCLERA: sclerae normal Neck/C-Spine: COMMON NORMALS: supple GENERAL: Yes trachea midline Resp: COMMON NORMALS: normal respiratory effort EFFORT & INSPECTION: Yes able to speak in complete sentences Cardio: COMMON NORMALS: regular rate and regular rhythm RATE: regular rate RHYTHM: regular rhythm GI: COMMON NORMALS: Soft to palpation PALPATION: Yes Soft to palpation and No Tenderness to palpation present (GI) Extremity: NARRATIVE EXTREMITY EXAM: Distal CMS intact x4. Left shoulder tender to palpation, left hip tenderness palpation, no obvious bony deformity. GENERAL: Yes normal exam except as noted and No edema Neuro: COMMON NORMALS: patient oriented x3, CN's II-XII intact bilaterally, moves all extremities, no focal motor deficits and no sensory deficits noted SENSORIUM/ORIENTATION: Yes alert and No Orientation impaired Psych: COMMON NORMALS: mental status grossly normal and Normal thought process present THOUGHT PROCESS: Normal thought process present Course Vital Signs: Vital signs: Vital Signs Temperature 98.0 F 08/23/22 13:57 Pulse Rate 60 08/23/22 17:50 Respiratory Rate 20 H 08/23/22 17:30 Blood Pressure 104/48 08/23/22 17:50 Pulse Oximetry 94 08/23/22 17:50 Oxygen Delivery Me thod Nasal Cannula 08/23/22 16:00 Oxygen Flow Rate 2 08/23/22 16:00 MDM - Syncope Medical Decision Making 76-year-old lady presenting to the emergency room end for syncopal episode. Currently back to baseline but does report pain from fall. Head to toe exam performed. No focal neurologic deficits. EKG demonstrates sinus bradycardia with first-degree AV block, normal axis, no STEMI. Labs with no significant hematologic or metabolic abnormalities to explain his symptoms with exception of elevated creatinine above baseline. Negative range 2-hour delta troponin. Urinalysis concerning for urinary tract infection. CT head and cervical spine negative for acute pathology. X-rays are negative for bony abnormality. Incidental findings discussed with patient. No pneumonia or pneumothorax. Patient treated with analgesia and feels improved. Antibiotic given. I offered admission for further evaluation of syncope which the patient declined. Discussed need for hydration and treatment of UTI. Also plan for further outpatient cardiac testing/Holter monitor. The results of ED evaluation were discussed with the patient including prescriptions and/or symptomatic cares (if applicable) including appropriate and responsible use, followup plan, and return precautions. The patient verbalized understanding and felt safe for discharge. Medical Records I reviewed the patient's medical records. Lab Data I reviewed the patient's lab results. 08/23/22 14:25 08/23/22 14:25 Radiology Impressions Cervical Spine CT 08/23/22 14:15 IMPRESSION: No evidence of acute fracture or dislocation. Chest X-Ray 08/23/22 14:15 IMPRESSION: No acute abnormality. Head CT 08/23/22 14:15 IMPRESSION: 1. No evidence of intracranial hemorrhage or mass effect. 2. Moderate small vessel changes. Moderate parenchymal volume loss. 3. Vascular calcification. 4. No acute intracranial findings. Hip/Pelvis X-Ray 08/23/22 14:15 IMPRESSION: No acute abnormality. Shoulder X-Ray 08/23/22 14:15 IMPRESSION: No acute findings. Laboratory Results WBC 5.5 10^3/uL (4.0-10.0) 08/23/22 14:25 RBC 4.22 10^6/uL (4.1-5.3) 08/23/22 14:25 Hgb 12.9 g/dL (11.5-15.3) 08/23/22 14:25 Hct 39.4 % (37.0-47.0) 08/23/22 14:25 MCV 93.4 fl (81-99) 08/23/22 14:25 MCH 30.6 pg (28.0-34.0) 08/23/22 14:25 MCHC 32.7 g/dL (30.0-36.0) 08/23/22 14:25 RDW 12.6 % (12.1-15.1) 08/23/22 14:25 Plt Count 209 10^3/cmm (130-400) 08/23/22 14:25 MPV 9.4 fL (7.4-10.4) 08/23/22 14:25 Neut % (Auto) 76.3 % 08/23/22 14:25 Lymph % (Auto) 16.5 % 08/23/22 14:25 [place] % (Auto) 5.6 % 08/23/22 14:25 Eos % (Auto) 0.4 % 08/23/22 14:25 Baso % (Auto) 0.7 % 08/23/22 14:25 Neut # (Auto) 4.19 10^3/uL (1.8-7.7) 08/23/22 14:25 Lymph # (Auto) 0.9 10^3/uL (0.8-4.8) 08/23/22 14:25 [place] # (Auto) 0.3 10^3/uL (0.2-0.9) 08/23/22 14:25 Eos # (Auto) 0.0 10^3/uL (0.0-0.8) 08/23/22 14:25 Baso # (Auto) 0.0 10^3/uL (0.0-0.1) 08/23/22 14: Nucleated RBC % (auto) 0 % 08/23/22 14: Nucleated RBCs # 0.0 /100WBC 08/23/22 14:25 Sodium 137 mmol/L (136-145) 08/23/22 14:25 Potassium 4.5 mmol/L (3.5-5.1) 08/23/22 14:25 Chloride 100 mmol/L (98-107) 08/23/22 14:25 Carbon Dioxide 23 mmol/L (22-29) 08/23/22 14:25 Anion Gap 18.5 (5-19) 08/23/22 14:25 BUN 23 mg/dL (8-23) 08/23/22 14:25 Creatinine 1.7 mg/dL (0.5-0.9) H 08/23/22 14:25 GFR Calculation Not Reportable 08/23/22 14:25 Glucose 137 mg/dL (65-115) H 08/23/22 14:25 POC Glucose 137 mg/dL (70-110) H 08/23/22 14:24 Calculated Osmolality 290 mOsm/kg (285-295) 08/23/22 14:25 Calcium 9.2 mg/dL (8.5-10.5) 08/23/22 14:25 Total Bilirubin 0.2 mg/dL (0.15-1.2) 08/23/22 14:25 AST 16 U/L (0-32) 08/23/22 14:25 ALT 15 U/L (0-33) 08/23/22 14:25 Alkaline Phosphatase 72 U/L (35-105) 08/23/22 14:25 Troponin T Baseline 19 ng/L (0-10) H 08/23/22 14:25 Troponin T 120 Minute 17.94 ng/L (0-10) H 08/23/22 16:25 Delta Troponin T -1.06 ABS# (0-10) L 08/23/22 16:25 C-Reactive Protein 3.0 mg/L (0.0-4.9) 08/23/22 14:25 NT-Pro-B Natriuret Pep 437 pg/mL (0-450) 08/23/22 14:25 Total Protein 6.4 g/dL (6.6-8.7) L 08/23/22 14:25 Albumin 4.1 g/dL (3.5-5.2) 08/23/22 14:25 Globulin 2.3 g/dL (1.3-4.6) 08/23/22 14:25 Procalcitonin 0.04 ng/mL (0-0.5) 08/23/22 14:25 TSH 2.53 uIU/mL (0.27-4.20) 08/23/22 14:25 Urine Color Yellow (Yellow) 08/23/22 16:40 Urine Appearance Cloudy (CLEAR) A 08/23/22 16:40 Urine pH 6 (5-7) 08/23/22 16:40 Ur Specific [place] 1.020 (1.005-1.030) 08/23/22 16:40 Urine Protein Neg (Negative) 08/23/22 16:40 Urine Glucose (UA) Norm (Normal) 08/23/22 16:40 Urine Ketones Negative (Negative) 08/23/22 16:40 Urine Blood Neg (Negative) 08/23/22 16:40 Urine Nitrate Negative (Negative) 08/23/22 16:40 Urine Bilirubin Neg (Negative) 08/23/22 16:40 Urine Urobilinogen Neg mg/dL (Negative) 08/23/22 16:40 Ur Leukocyte Esterase 2+ (Negative) H 08/23/22 16:40 Urine RBC 0-4 /hpf (0-2) H 08/23/22 16:40 Urine WBC >100 /hpf (0-5) H 08/23/22 16:40 Ur Squamous Epith Cells 0-4 /hpf (0-5) H 08/23/22 16:40 Amorphous Sediment Not Reportable 08/23/22 16:40 Urine Bacteria 4+ /hpf (NONE) H 08/23/22 16:40 Discharge Plan Discharge Patient Disposition: Home Clinical Impression: Syncope, Dehydration, Multiple contusions, Acute UTI Condition: Stable Prescriptions: New nitrofurantoin macrocrystal 100 mg capsule 100 mg PO BID 7 Days Qty: 14 0RF Rx Instructions: must administer with a meal/food No Action cholecalciferol (vitamin D3) 50 mcg (2,000 unit) capsule 50 mcg PO DAILY@0900 losartan 100 mg tablet 100 mg PO DAILY@0900 atorvastatin [Lipitor] 80 mg tablet 80 mg PO DAILY@0900 levothyroxine 100 mcg capsule 100 mcg PO DAILY@0900 tolterodine [Detrol] 2 mg tablet 2 mg PO BID@0900,2100 metoprolol succinate 50 mg capsule,sprinkle,ER 24hr 75 mg PO DAILY@0900 metformin 500 mg tablet 1,000 mg PO BID@0900,2100 Breztri Aerosphere 160-9-4.8 mcg/actuation HFA aerosol inhaler 2 inh inhalation BID 30 Days Qty: 10.7 6RF amlodipine 5 mg tablet 5 mg PO DAILY docusate sodium [Colace] 100 mg capsule 100 mg PO BID ropinirole 2 mg tablet 2 mg PO DAILY torsemide 5 mg tablet 5 mg PO DAILY oxybutynin chloride 10 mg tablet extended release 24hr 20 mg PO DAILY@0900 90 Days Qty: 180 3RF Rx Instructions: Take 2 tablets (20mg) by mouth daily. carbamazepine 200 mg tablet 200 mg PO BID Qty: 60 3RF (DME) diabetic shoes with 3 pairs inserts See Rx Instructions .Route .MEDSUPPLY Qty: 1 0RF Rx Instructions: As directed HOME Cymbalta 60 mg capsule,delayed release(DR/EC) 60 mg PO DAILY@0900 Qty: 30 2RF Ingrezza 80 mg capsule 80 mg PO DAILY Qty: 30 2RF clopidogrel 75 mg tablet 75 mg PO DAILY@0900 Qty: 90 3RF prednisone 5 mg tablet See Rx Instructions PO DAILY Qty: 60 0RF Rx Instructions: 1-2 tablets PO daily; hydroxychloroquine 200 mg tablet 200 mg PO BID Qty: 60 0RF prednisone 5 mg tablet See Rx Instructions PO DAILY Qty: 30 0RF Rx Instructions: 1-2 daily orally daily; gabapentin 800 mg tablet See Rx Instructions .ROUTE .COMPLEX Qty: 90 4RF Dose Instruction: TAKE 1 TABLET BY MOUTH THREE TIMES DAILY Rx Instructions: TAKE 1 TABLET BY MOUTH THREE TIMES DAILY nitroglycerin 0.4 mg tablet, sublingual 0.4 mg sublingual Q5MIN PRN (Reason: Chest Pain) meloxicam 7.5 mg tablet 7.5 mg PO DAILY@0900 hydrochlorothiazide 25 mg tablet 25 mg PO DAILY@0900 Ventolin HFA 90 mcg/actuation HFA aerosol inhaler See Rx Instructions .ROUTE .COMPLEX Rx Instructions: inhaled DIRECTED fenofibrate 54 mg tablet 54 mg PO DAILY@2100 potassium chloride 10 mEq tablet extended release 10 meq PO DAILY@0900 baclofen 10 mg tablet 10 mg PO Q8H PRN (Reason: muscle spasm/pain) Qty: 10 0RF Discharge Orders: Discharge ED (Routine); Ordered 08/23/22 Ordered By: Sharad Esquivel Other Ambulatory Orders: ECG holter monitor 7 Days (Routine) Timeframe: 3 Days Facility: [facility] - Location: Radiology Ordered By: Sharad Esquivel Referrals: Brett Guallpa MD [Primary Care Provider] - Discharge Diet: Usual diet Discharge Activity: Increase activity as tolerated Patient Instructions: Dehydration (ED), Syncope (ED), Contusion in Adults (ED), Urinary Tract Infection in Older Adults (ED) Activity Restrictions/Additional Instructions: Thank you for visiting the emergency department. You were seen and evaluated for syncope. The exact cause of your symptoms is unclear that may be related to UTI and dehydration. Please ensure that you are staying hydrated. I will prescribe antibiotics. As discussed I will also order additional testing for causes of syncope, you declined admission at this time. Please follow-up with your primary care provider. Return to the emergency department for anything that you are concerned about and feel needs emergency department evaluation. Coding Level of Care Code ED Electrical Instrumentation Technician for Aicha Jean Baptiste
--- NOTE | 2022-08-23 14:15 | XRR_ITS ---
PROCEDURE INFORMATION: Exam: XR Left Hip Exam date and time: 08/23/2022 2:40 PM Age: 76 years old Clinical indication: Injury or trauma; Fall; Blunt trauma (contusions or hematomas); Left; Hip; Additional info: Fall, left hip pain TECHNIQUE: Imaging protocol: Radiologic exam of the left hip. Views: 2 or 3 views hip with pelvis when performed. COMPARISON: CR XR pelvis 1-2V* [id number] 09/24/2021 2:18 PM FINDINGS: Bones/joints: Hardware in the lower lumbar spine. Moderate degenerative changes of bilateral hip joints. Soft tissues: Evidence of herniorrhaphy. XR/XR hip LT 2-3V wo/w pel* [id number] IMPRESSION: No acute abnormality.
--- NOTE | 2022-08-23 14:15 | CT_ITS ---
WS: [id number] CT HEAD TECHNIQUE: Noncontrast CT of the head obtained from the skullbase to the vertex. CLINICAL INFORMATION: Syncope/fall COMPARISON: MRI November 03, 2021: CT September 24, 2021 DLP: 1321.[address] scans at [facility] use at least one of these dose optimization techniques: automated e xposure control; mA and/or kV adjustment per patient size (includes targeted exams where dose is matc hed to clinical indication); or iterative reconstruction. FINDINGS: No evidence of intracranial hemorrhage or mass effect. Ventricular system and basal cisterns are evangelista nt. Moderate small vessel changes with moderate parenchymal volume loss. No extra-axial fluid collect ions. No evidence of mass or mass effect. Vascular calcification. Incidental megacisterna magna. Paranasal sinuses and mastoid air cells are well aerated. .Normal visualized soft tissues. CT/CT head wo con* [id number] IMPRESSION: 1. No evidence of intracranial hemorrhage or mass effect. 2. Moderate small vessel changes. Moderate parenchymal volume loss. 3. Vascular calcification. 4. No acute intracranial findings.
--- NOTE | 2022-08-23 14:15 | XRR_ITS ---
PROCEDURE INFORMATION: Exam: XR Left Shoulder Exam date and time: 08/23/2022 2:40 PM Age: 76 years old Clinical indication: Pain and injury or trauma; Fall; Blunt trauma (contusions or hematomas); Shoulder; Left; Additional info: Fall, lateral proximal humerus/shoulder pain TECHNIQUE: Imaging protocol: Radiologic exam of the left shoulder. Views: 2 or more views. COMPARISON: CR XR shoulder LT min 2V* [id number] 02/07/2021 11:43 AM FINDINGS: Bones/joints: Normal. Soft tissues: Normal. XR/XR shoulder LT min 2V* [id number] IMPRESSION: No acute findings.
--- NOTE | 2022-08-23 14:15 | CT_ITS ---
WS: [id number] CT CERVICAL TRAUMA TECHNIQUE: Noncontrast CT of the cervical spine with coronal and sagittal reformatted images. CLINICAL INFORMATION: Syncope/fall COMPARISON: None. DLP: 1321.[address] scans at [facility] use at least one of these dose optimization techniques: automated e xposure control; mA and/or kV adjustment per patient size (includes targeted exams where dose is matc hed to clinical indication); or iterative reconstruction. FINDINGS: Straightening of the normal cervical lordosis. Slight anterolisthesis C4 on C5. Normal craniocervical junction. Normal C1-C2 articulation. Dens is normal in appearance. Normal occipital condyles. No hig h-grade spinal canal narrowing. Normal C1 ring. No evidence of acute fracture or dislocation. Normal prevertebral soft tissues. LEFT thyroid nodule 10 mm. Mastoids air cells are well aerated. CT/CT cervical spin wo con* [id number] IMPRESSION: No evidence of acute fracture or dislocation.
--- NOTE | 2022-08-23 14:15 | XRR_ITS ---
PROCEDURE INFORMATION: Exam: XR Chest Exam date and time: 08/23/2022 2:40 PM Age: 76 years old Clinical indication: Injury or trauma; Fall; Other: Syncope; Blunt trauma (contusions or hematomas) TECHNIQUE: Imaging protocol: Radiologic exam of the chest. Views: 1 view. COMPARISON: CT chest w con* [id number] 05/24/2022 4:01 PM FINDINGS: Lungs: Minimal atelectasis at the left lung base. Pleural spaces: Unremarkable. No pleural effusion. No pneumothorax. Heart/Mediastinum: Unremarkable. No cardiomegaly. Bones/joints: Unremarkable. XR/XR chest 1V portable [id number] IMPRESSION: No acute abnormality.
--- NOTE | 2022-08-23 14:16 | ECG_ITS ---
[facility] Test Date: 2022-08-23 Pat Name: Elyssa Daniels Department: Room: Gender: Female Billing Rep: : 1945 Requested By: Sharad Esquivel Order Number: [id number] Lira MD: Angelina Goyal M.D. Measurements Intervals [place] Rate: 65 P: 76 VT: 219 QRS: 23 QRSD: 90 T: 79 QT: 419 QTc: 436 Interpretive Statements SINUS RHYTHM WITH FIRST DEGREE AV BLOCK Compared to ECG 09/03/2020 15:58:18 First degree AV block now present Sinus bradycardia no longer present Electronically Signed On 08-23-2022 21:02:25 CDT by Angelina Goyal M.D. [email or web address] [id number]
[2022-08-23 14:26] LABS: Glucose Point of Care 137 mg/dL (70-110)
[2022-08-23 14:42] LABS: Basophils % 0.7 %; Eosinophils % 0.4 %; Hematocrit 39.4 % (37.0-47.0); Hemoglobin 12.9 g/dL (11.5-15.3); Lymphocytes # 0.9 10^3/uL (0.8-4.8); Lymphocytes % 16.5 %; Mean Corpuscular HGB Conc 32.7 g/dL (30.0-36.0); Mean Corpuscular Hemoglobin 30.6 pg (28.0-34.0); Mean Corpuscular Volume 93.4 fl (81-99); Mean Platelet Volume 9.4 fL (7.4-10.4); Monocytes # 0.3 10^3/uL (0.2-0.9); Monocytes % 5.6 %; Neutrophils # 4.19 10^3/uL (1.8-7.7); Neutrophils % 76.3 %; Nucleated Red Blood Cells % 0 %; Platelet Count 209 10^3/cmm (130-400); Red Blood Count 4.22 10^6/uL (4.1-5.3); Red Cell Distribution Width 12.6 % (12.1-15.1); White Blood Count 5.5 10^3/uL (4.0-10.0)
[2022-08-23 15:02] LABS: Troponin(5th) Baseline 19 ng/L (0-10)
[2022-08-23 15:09] LABS: NT Pro B Type Natriuretic Pept 437 pg/mL (0-450); Procalcitonin 0.04 ng/mL (0-0.5); Thyroid Stimulating Hormone 2.53 uIU/mL (0.27-4.20)
[2022-08-23 15:20] LABS: Alanine Aminotransferase 15 U/L (0-33); Albumin Level 4.1 g/dL (3.5-5.2); Alkaline Phosphatase 72 U/L (35-105); Anion Gap 18.5 (5-19); Aspartate Amino Transferase 16 U/L (0-32); Blood Urea Nitrogen 23 mg/dL (8-23); Calcium 9.2 mg/dL (8.5-10.5); Carbon Dioxide 23 mmol/L (22-29); Chloride 100 mmol/L (98-107); Globulin 2.3 g/dL (1.3-4.6); Glucose 137 mg/dL (65-115); Osmolality Calculated 290 mOsm/kg (285-295); Potassium 4.5 mmol/L (3.5-5.1); Sodium 137 mmol/L (136-145); Total Bilirubin 0.2 mg/dL (0.15-1.2); Total Protein 6.4 g/dL (6.6-8.7)
[2022-08-23] MEDS: ketorolac 30 mg/mL INJ 15 MG IVP (15:30)
--- NOTE | 2022-08-23 15:34 | PC.NURSE ---
Pt placed on 2L of oxygen via nasal cannula due to oxygen saturation dropping to 88% on room air while the patient is sleeping.
--- NOTE | 2022-08-23 16:16 | ECG_ITS ---
[facility] Test Date: 2022-08-23 Pat Name: Elyssa Daniels Department: Room: Gender: Female Field Support Specialist: : 1945 Requested By: Sharad Esquivel Order Number: [id number] Pankaj MD: Cr Torres M.D. Measurements Intervals [place] Rate: 57 P: 78 NC: 215 QRS: 22 QRSD: 93 T: 77 QT: 445 QTc: 436 Interpretive Statements SINUS BRADYCARDIA WITH FIRST DEGREE AV BLOCK Compared to ECG 08/23/2022 15:07:40 Sinus rhythm no longer present Electronically Signed On 08-24-2022 14:10:22 CDT by Cr Torres M.D. [email or web address] community hospitalTelecom [place]/[id number]
[2022-08-23 17:03] LABS: Troponin 5 2HR 17.94 ng/L (0-10); Troponin 5 2HR Delta -1.06 ABS# (0-10)
[2022-08-23 17:09] LABS: Add Urine Culture? Yes; Add Urine Microscopic? YES; Bacteria Urine 4+ /hpf; Bilirubin Urine Neg (Negative); Blood Urine Neg (Negative); Glucose Urine UA Norm (Normal); Ketones Urine Negative (Negative); Leukocyte Esterase Urine 2+ (Negative); Nitrate Urine Negative (Negative); Protein Urine Neg (Negative); RBC Urine 0-4 /hpf (0-2); Squamous Epithelial Cell Urine 0-4 /hpf (0-5); Urine Appearance Cloudy (CLEAR); Urine Color Yellow (Yellow); Urobilinogen Urine Neg (Negative); WBC Urine >100 /hpf (0-5); pH Urine 6 (5-7)
[2022-08-23] MEDS: nitrofurantoin SR (BID) 100 mg Capsule PO (17:45)
--- NOTE | 2022-08-24 12:07 | DCPLANNER ---
business analyst project manager had message to schedule an outpatient echocardiogram for patient. business analyst project manager faxed signed order to centralized scheduling, who will call patient with appointment information.
== END 2022-08-23 17:51 | disposition home or self-care (01) ==
PROVIDERS: Emergency Provider Emergency Medicine; PCP Family Medicine
DX: R55 Syncope and collapse (principal); E86.0 Dehydration; N39.0 Urinary tract infection, site not specified; T14.8XXA Other injury of unspecified body region, initial encounter; Z79.84 Long term (current) use of oral hypoglycemic drugs; Z79.02 Long term (current) use of antithrombotics/antiplatelets; Z87.891 Personal history of nicotine dependence; Z95.5 Presence of coronary angioplasty implant and graft; I12.9 Hypertensive chronic kidney disease with stage 1 through stage 4 chronic kidney disease, or unspecified chronic kidney disease; E11.22 Type 2 diabetes mellitus with diabetic chronic kidney disease; N18.9 Chronic kidney disease, unspecified; J44.9 Chronic obstructive pulmonary disease, unspecified; I25.10 Atherosclerotic heart disease of native coronary artery without angina pectoris; E78.5 Hyperlipidemia, unspecified; W18.30XA Fall on same level, unspecified, initial encounter
CPT/HCPCS: 36415; 36416; 70450; 71045; 72125; 73030; 73502; 80053; 81001; 82962; 83880; 84145; 84443; 84484; 85025; 86140; 87077; 87086; 87186; 93005; 96374; 99285; J1885

== ENCOUNTER 2022-08-29 14:18 | Outpatient (CLI) | payer MEDICARE, MEDICAID, SELFPAY ==
--- NOTE | 2022-08-29 15:00 | CT_ITS ---
WS: [id number] CT chest wo con [id number] HISTORY: lung mass TECHNIQUE: Axial imaging performed through the thorax. Coronal and sagittal reformats are submitted. All CT scans at [facility] use at least one of these dose optimization techniques: automated exposure control; mA and/or kV adjustment per patient size (includes targeted exams where dose is mat ched to clinical indication); or iterative reconstruction. CONTRAST: None DLP: 240.11 mGy.cm COMPARISON: 05/24/2022 and 11/21/2021 Lungs and central airway: No change in the spiculated 6 mm nodule LEFT apex since the most recent exa m of 05/24/2022. This nodule has increased in size since 11/21/2021. There is an additional stable 4 mm n odule posterior LEFT upper lobe. Moderate hyperexpansion and chronic emphysema. Subsegmental atelecta sis at the lung bases. Pleura: Normal. No pleural effusion. Heart and pericardium: Normal size heart with no pericardial effusion. Mediastinum and sergio: No mediastinum or hilar adenopathy. Vessels: Moderate atherosclerotic changes within the aorta. Normal size pulmonary artery. Heavy calci fication within the coronary arteries. Chest wall and lower neck: No soft tissue masses. Upper abdomen: Prior cholecystectomy. Suprarenal aortic calcification. Calcifications extend into the celiac axis and the proximal SMA. No adrenal mass. Small hiatal hernia. Cortical nodules upper pole LEFT kidney are of increased density. Probably cysts with increased protein content. Osseous structures: Very mild concave deformity superior endplate of T3 and T4. Remote healed rib fra ctures in the posterior LEFT lower thorax. CT/CT chest wo con [id number] IMPRESSION: 1. No increase in size of the spiculated 6 mm LEFT upper lobe pulmonary nodule since 05/24/2022. This nodule has increased in size since 11/21/2021. Recommend co ntinued close follow-up by CT. 2. Additional 4 mm nodule in the LEFT upper lobe unchanged also but this nodul e is also present in 2020 and may be benign. 3. Moderate chronic emphysema. 4. Moderate atherosclerosis aorta and coronary arteries. 5. Prior cholecystectomy.
== END 2022-08-29 14:19 | disposition home or self-care (01) ==
LOC: RAD 14:22
PROVIDERS: PCP Family Medicine; Visit Provider Thoracic Surgery (Cardiothoracic Vascular Surgery)
DX: R91.8 Other nonspecific abnormal finding of lung field (principal); R91.1 Solitary pulmonary nodule; J43.9 Emphysema, unspecified
CPT/HCPCS: 71250

== ENCOUNTER 2022-09-05 17:42 | Inpatient (IN) | payer MEDICARE, MEDICAID, SELFPAY ==
[2022-09-05] VITALS (8 sets, daily range): BP systolic 107–170; BP diastolic 62–82; PULSE 65–68; RESP 16–18; TEMP 36.5–36.7; O2SAT 93–98; BMI 28.6
--- NOTE | 2022-09-05 17:51 | ECG_ITS ---
[facility] Test Date: 2022-09-05 Pat Name: Elyssa Daniels Department: Room: Gender: Female Online Merchandising Specialist: : 1945 Requested By: Amelie Chavez Order Number: [id number] Pankaj MD: Angelina Goyal M.D. Measurements Intervals [place] Rate: 65 P: 65 RI: 257 QRS: -45 QRSD: 101 T: 73 QT: 409 QTc: 428 Interpretive Statements SINUS RHYTHM WITH FIRST DEGREE AV BLOCK PATTERN CONSISTENT WITH PULMONARY DISEASE LEFT ANTERIOR FASCICULAR BLOCK [QRS AXIS <= -45, QR IN I, RS IN II] MINIMAL ST DEPRESSION [0.025+ mV ST DEPRESSION] Compared to ECG 08/23/2022 16:13:45 Left anterior fascicular block now present ST (T wave) deviation now present Sinus bradycardia no longer present Electronically Signed On 09-06-2022 22:17:42 CDT by Angelina Goyal M.D. [id number]
--- NOTE | 2022-09-05 17:52 | XRR_ITS ---
PROCEDURE INFORMATION: Exam: XR Chest Exam date and time: 09/05/2022 6:02 PM Age: 76 years old Clinical indication: Other: Weakness; Additional info: SOB TECHNIQUE: Imaging protocol: Radiologic exam of the chest. Views: 1 view. COMPARISON: CT chest con [id number] 08/29/2022 3:05 PM FINDINGS: Lungs: Unchanged hyperinflation of lungs and upper lung zone emphysema. No interstitial or air space opacities seen. Unchanged mild left basilar linear scarring. Pleural spaces: No pleural effusion. No pneumothorax. Heart/Mediastinum: Normal heart size. There is a mildly tortuous thoracic aorta. Midline trachea. Bones/joints: No acute osseous abnormalities seen. XR/XR chest 1V portable [id number] IMPRESSION: Unchanged hyperinflation of lungs and upper lung zone emphysema. No confluent infiltrates in the lungs.
--- NOTE | 2022-09-05 18:32 | XRR_ITS ---
PROCEDURE INFORMATION: Exam: XR Left Shoulder Exam date and time: 09/05/2022 6:46 PM Age: 76 years old Clinical indication: Pain and injury or trauma; Fall; Blunt trauma (contusions or hematomas); Arm, upper; Left; Shoulder; Additional info: Fall pain TECHNIQUE: Imaging protocol: Radiologic exam of the left shoulder. Views: 2 or more views. AP INT/ EXT ROTATION, SCAPULAR Y COMPARISON: CR XR shoulder LT min 2V* [id number] 08/23/2022 2:40 PM FINDINGS: Bones/joints: Osseous irregularity and curvilinear lucency is seen at the left superolateral aspect of the humeral head, suggestive of a minimally displaced fracture of the greater tuberosity. Further evaluation may be performed with CT. There is no dislocation of the humeral head from the glenoid fossa. Mild glenohumeral degenerative changes are seen. Unchanged moderate acromioclavicular degenerative changes are seen. There is osteopenia. Old healed left posterolateral 6th and 7th rib fractures are incidentally noted. Soft tissues: No radiopaque foreign bodies. Notes: Followup radiographs may also be obtained for complete assessment. XR/XR shoulder LT min 2V* [id number] IMPRESSION: Osseous irregularity and curvilinear lucency seen at the left superolateral aspect of the humeral head, suggestive of a minimally displaced fracture of the greater tuberosity. Further evaluation may be performed with CT.
--- NOTE | 2022-09-05 18:34 | W.ED.FALL ---
HPI - Fall General: Chief Complaint: Fall Stated Complaint: Weakness, Dr. Guallpa sent over Time Seen by Provider: 09/05/22 18:10 History of Present Illness: X3 over the last couple weeks. Patient states her legs start shaking and then sometimes she passes out sometimes she falls. Patient was sent over here by her PCP for further evaluation and treatment. Patient states she is having chest wall pain and left shoulder pain. MD complaint: fall Onset (ago): week(s) (A couple weeks ago) Fall from: standing Fall witnessed: yes, by family Loss of consciousness: Unsure Symptoms prior to fall: other (Leg shaking) Associated symptoms-after fall: Reports no associated symptoms; Denies abdominal pain, chest pain or neck pain Review of Systems General: Reports: 10 or more systems reviewed and unremarkable except in HPI and below Const: Denies: fever(s) or chills Eyes: Denies: change in vision or photophobia ENMT: Denies: throat pain or odynophagia Card: Denies: chest pain, palpitations or irregular heart rhythm Resp: Denies: dyspnea, productive cough or non-productive cough GI: Denies: abdominal pain, nausea, vomiting or diarrhea : Denies: flank pain, difficulty voiding or dysuria Musc: Reports: joint pain (Left shoulder pain); Denies: neck pain or back pain PFSH ED PFSH: Medical History Alcohol use disorder in remission Amphetamine use disorder, moderate, in sustained remission Bipolar disorder, in partial remission, most recent episode manic Cannabis use disorder, mild, in sustained remission, abuse Chronic kidney disease (CKD) Chronic obstructive pulmonary disease Coronary artery disease Patient with stents Diabetes mellitus Hyperlipidemia Hypertension Hypothyroidism Incidental pulmonary nodule, > 3mm and < 8mm Lupus Major depressive disorder, recurrent, in partial remission Psychiatric care Tobacco use disorder, mild, in sustained remission Surgical History History of back surgery (01/17/13) History of bilateral breast reduction surgery History of bilateral tubal ligation History of bladder surgery (~1989) Vaginal Urethral sling with possible anchors . Performed by Dr. Salas at [facility]. History of cholecystectomy History of colonoscopy with polypectomy (~04/20/20) 2017 History of coronary angioplasty with insertion of stent 2006: 2 stents. 2008: 2 stents. History of dilation and curettage (~1982) History of hand surgery Repair right thumb fracture History of hemorrhoidectomy History of right cataract extraction History of vaginal hysterectomy Still has ovaries. Performed in [place], [place]. Performed due to bleeding. Family History Brother Heart disease Hypertension Hypercholesteremia Diabetes Sister Thyroid condition Denies family history of Colon cancer Ovarian cancer Clotting disorder Breast cancer Anesthesia complication Bleeding disorder Uterine cancer Stroke Social History Smoking and tobacco status: former smoker Smoking risk assessment/counseling performed?: No Counseling given: No Substance/Drug Use: never Counseling given: No Lives independently: Yes Household members: none Marital status: Current occupational status: disabled Do you think of yourself as: Straight/Heterosexual Current gender identity: Female Physical Exam Const: COMMON NORMALS: no acute distress, average body habitus, patient oriented x3, no limitations, healthy appearing, alert and well nourished HENMT: COMMON NORMALS: normocephalic, atraumatic, hearing grossly normal bilaterally, external ears normal, Normal external nose present and moist oral mucous membranes HEAD & SCALP: normocephalic and atraumatic NOSE: Normal external nose present EXTERNAL EAR: Yes external ears normal Eye: COMMON NORMALS: Equal, round and reactive pupils present, EOMs intact bilaterally, conjunctivae normal and no scleral icterus CONJUNCTIVA: Yes conjunctivae normal PUPIL: Yes Equal, round and reactive pupils present Neck/C-Spine: COMMON NORMALS: full ROM, no lymphadenopathy, supple, no meningeal signs, no JVD and Thyroid normal THYROID: Thyroid normal Lymph: LYMPHATIC: no lymphadenopathy noted Chest: COMMONS NORMALS: normal inspection of the chest OTHER: Tenderness to palpation over left anterior chest wall Resp: COMMON NORMALS: normal respiratory effort, No retractions, No use of accessory muscles and clear to auscultation bilaterally AUSCULTATION: clear to auscultation bilaterally Cardio: COMMON NORMALS: no JVD, regular rhythm, S1 normal heart sound present, S2 normal heart sound present, No gallops present (Cardio), No clicks present (Cardio), No murmurs present (Cardio) and No rub (Cardio) RHYTHM: regular rhythm HEART SOUNDS: S1 normal heart sound present and S2 normal heart sound present GI: COMMON NORMALS: Normal to inspection, nondistended, normoactive bowel sounds present, Soft to palpation, non-tender, No hepatosplenomegaly present and no masses PALPATION: Yes Soft to palpation and Yes No hepatosplenomegaly present : COMMON NORMALS: Yes no CVA tenderness BLADDER/KIDNEY EXAM: Yes no CVA tenderness Back/Pelvis: COMMON NORMALS: no CVA tenderness Extremity: NARRATIVE EXTREMITY EXAM: Mild tenderness to palpation over left anterior shoulder joint region, patient has full range of motion Neuro: COMMON NORMALS: patient oriented x3 SENSORIUM/ORIENTATION: Yes alert MENINGEAL SIGNS: Yes no meningeal signs Course Vital Signs: Vital signs: Vital Signs Temperature 98.0 F 09/05/22 17:46 Pulse Rate 65 09/05/22 19:36 Respiratory Rate 16 09/05/22 20:06 Blood Pressure 148/66 09/05/22 20:06 Pulse Oximetry 93 09/05/22 20:06 Oxygen Delivery Me thod Room Air 09/05/22 17:46 MDM - Fall Medical Decision Making Patient presents to the ER with multiple falls over the last week. Patient sometimes has syncope. Patient complains of left shoulder pain. X-rays was obtained which showed questionable fracture of the shoulder and therefore CT scan was obtained which showed a comminuted minimally displaced left proximal humeral greater tuberosity region fracture. And also acutely minimally displaced left anterolateral third through fifth rib fractures. Also showed a left apical solid nodule with irregular borders in the chest. Lab work was obtained which showed a sodium of 124 potassium of 6.3 BUN/creatinine of [address] Barkley was notified about the humeral fracture and rib fractures. From an orthopedic standpoint we can put him in a shoulder immobilizer and she will take care of them on an outpatient basis. Dr. Chowdary was consulted about the following and the irregularities in her lab. Patient was given 1 g calcium chloride, 10 units IV insulin, 1 amp of D50 for hyperkalemia. EKG was obtained that showed no hyperkalemic changes. Patient will be admitted for further evaluation and treatment. Differential Diagnosis Unlikely syncope, dislocation of shoulder region, fracture of wrist, compression fracture, concussion with loss of consciousness or concussion without loss of consciousness Medical Records I reviewed the patient's medical records. Lab Data I reviewed the patient's lab results. 09/05/22 18:33 09/05/22 18:33 Radiology Impressions Chest X-Ray 09/05/22 17:52 IMPRESSION: Unchanged hyperinflation of lungs and upper lung zone emphysema. No confluent infiltrates in the lungs. Shoulder X-Ray 09/05/22 18:32 IMPRESSION: Osseous irregularity and curvilinear lucency seen at the left superolateral aspect of the humeral head, suggestive of a minimally displaced fracture of the greater tuberosity. Further evaluation may be performed with CT. Shoulder CT 09/05/22 19:10 IMPRESSION: 1. Comminuted, minimally displaced left proximal humerus greater tuberosity region fracture, as noted above. No dislocation of the humeral head from the glenoid fossa. Generalized osteopenia. Degenerative changes, as noted above. 2. Acute minimally displaced left anterolateral 3rd through 5th rib fractures. 3. Left apical solid 0.7 x 0.6 cm nodule with irregular borders (series 4, image 152). Recommend follow-up per Fleischner society recommendations. Nonemergent chest CT may be performed for complete evaluation. 4. Moderate to severe centrilobular emphysema in the visualized left lung. Laboratory Results WBC 6.3 10^3/uL (4.0-10.0) 09/05/22 18:33 RBC 4.12 10^6/uL (4.1-5.3) 09/05/22 18:33 Hgb 12.2 g/dL (11.5-15.3) 09/05/22 18:33 Hct 37.7 % (37.0-47.0) 09/05/22 18:33 MCV 91.5 fl (81-99) 09/05/22 18:33 MCH 29.6 pg (28.0-34.0) 09/05/22 18:33 MCHC 32.4 g/dL (30.0-36.0) 09/05/22 18:33 RDW 12.3 % (12.1-15.1) 09/05/22 18:33 Plt Count 292 10^3/cmm (130-400) 09/05/22 18:33 MPV 9.2 fL (7.4-10.4) 09/05/22 18:33 Neut % (Auto) 65.9 % 09/05/22 18:33 Lymph % (Auto) 24.3 % 09/05/22 18:33 [place] % (Auto) 7.8 % 09/05/22 18:33 Eos % (Auto) 1.1 % 09/05/22 18: Baso % (Auto) 0.6 % 09/05/22 18: Neut # (Auto) 4.12 10^3/uL (1.8-7.7) 09/05/22 18: Lymph # (Auto) 1.5 10^3/uL (0.8-4.8) 09/05/22 18: [place] # (Auto) 0.5 10^3/uL (0.2-0.9) 09/05/22 18: Eos # (Auto) 0.1 10^3/uL (0.0-0.8) 09/05/22 18: Baso # (Auto) 0.0 10^3/uL (0.0-0.1) 09/05/22 18: Nucleated RBC % (auto) 0 % 09/05/22 18: Nucleated RBCs # 0.0 /100WBC 09/05/22 18: PT 12.50 SECONDS (12.1-14.9) 09/05/22 18: INR 0.91 (0.8-1.2) 09/05/22 18:33 Sodium 124 mmol/L (136-145) L 09/05/22 18: Potassium 6.3 mmol/L (3.5-5.1) H 09/05/22 18: Chloride 90 mmol/L (98-107) L 09/05/22 18: Carbon Dioxide 23 mmol/L (22-29) 09/05/22 18:33 Anion Gap 17.3 (5-19) 09/05/22 18:33 BUN 40 mg/dL (8-23) H 09/05/22 18:33 Creatinine 1.8 mg/dL (0.5-0.9) H 09/05/22 18:33 GFR Calculation Not Reportable 09/05/22 18: Glucose 103 mg/dL (65-115) 09/05/22 18:33 Calculated Osmolality 268 mOsm/kg (285-295) L 09/05/22 18:33 Calcium 8.6 mg/dL (8.5-10.5) 09/05/22 18:33 Magnesium 1.6 mg/dL (1.7-2.3) L 09/05/22 18:33 Total Bilirubin 0.3 mg/dL (0.15-1.2) 09/05/22 18:33 AST 14 U/L (0-32) 09/05/22 18:33 ALT 11 U/L (0-33) 09/05/22 18:33 Alkaline Phosphatase 115 U/L (35-105) H 09/05/22 18:33 Ammonia 25 umol/L (11-51) 09/05/22 18:33 NT-Pro-B Natriuret Pep 246 pg/mL (0-450) 09/05/22 18:33 Total Protein 6.9 g/dL (6.6-8.7) 09/05/22 18:33 Albumin 4.1 g/dL (3.5-5.2) 09/05/22 18:33 Globulin 2.8 g/dL (1.3-4.6) 09/05/22 18:33 Urine Color Dark yellow (Yellow) 09/05/22 19:11 Urine Appearance Clear (CLEAR) 09/05/22 19:11 Urine pH 5 (5-7) 09/05/22 19:11 Ur Specific [place] 1.025 (1.005-1.030) 09/05/22 19:11 Urine Protein Neg (Negative) 09/05/22 19:11 Urine Glucose (UA) Norm (Normal) 09/05/22 19:11 Urine Ketones Negative (Negative) 09/05/22 19:11 Urine Blood Neg (Negative) 09/05/22 19:11 Urine Nitrate Negative (Negative) 09/05/22 19:11 Urine Bilirubin Neg (Negative) 09/05/22 19:11 Urine Urobilinogen Norm mg/dL (Negative) 09/05/22 19:11 Ur Leukocyte Esterase 1+ (Negative) H 09/05/22 19:11 Urine RBC 0-4 /hpf (0-2) H 09/05/22 19:11 Urine WBC 0-4 /hpf (0-5) H 09/05/22 19:11 Ur Squamous Epith Cells 5-10 /hpf (0-5) H 09/05/22 19:11 Amorphous Sediment Not Reportable 09/05/22 19:11 Urine Bacteria Trace /hpf (NONE) 09/05/22 19:11 Hyaline Casts 5-10 /lpf H 09/05/22 19:11 Urine Opiates Screen Negative ng/mL (Negative) 09/05/22 19:11 Ur Barbiturates Screen Negative ng/mL (Negative) 09/05/22 19:11 Ur Phencyclidine Scrn Negative ng/mL (Negative) 09/05/22 19:11 Ur Amphetamines Screen Negative ng/mL (Negative) 09/05/22 19:11 U Benzodiazepines Scrn Negative ng/mL (Negative) 09/05/22 19:11 Urine Cocaine Screen Negative ng/mL (Negative) 09/05/22 19:11 U Marijuana (THC) Screen Positive ng/mL (Negative) H 09/05/22 19:11 EKG Data EKG 1: I personally reviewed and interpreted this EKG as follows: EKG interpretation date: 09/05/22 EKG interpretation time: 18:36 Prior EKG tracings: not available for review Interpretation: EKG showed ventricular rhythm of 65 bpm, IN interval 257, QRS duration 101, QTc of 421, sinus rhythm with a first-degree AV block, pattern consistent with pulmonary disease, left anterior fascicular block, minimal ST depression Discharge Plan Discharge Patient Disposition: Admitted As Inpatient Clinical Impression: Acute hyperkalemia, Acute hyponatremia, Acute renal insufficiency, Closed left humeral fracture, Left rib fracture Condition: Stable Prescriptions: No Action cholecalciferol (vitamin D3) 50 mcg (2,000 unit) capsule 50 mcg PO DAILY@0900 losartan 100 mg tablet 100 mg PO DAILY@0900 atorvastatin [Lipitor] 80 mg tablet 80 mg PO DAILY@0900 levothyroxine 100 mcg capsule 100 mcg PO DAILY@0900 tolterodine [Detrol] 2 mg tablet 2 mg PO BID@0900,2100 metoprolol succinate 50 mg capsule,sprinkle,ER 24hr 75 mg PO DAILY@0900 metformin 500 mg tablet 1,000 mg PO BID@0900,2100 Breelisatri Aerosphere 160-9-4.8 mcg/actuation HFA aerosol inhaler 2 inh inhalation BID 30 Days Qty: 10.7 6RF amlodipine 5 mg tablet 5 mg PO DAILY docusate sodium [Colace] 100 mg capsule 100 mg PO BID ropinirole 2 mg tablet 2 mg PO DAILY torsemide 5 mg tablet 5 mg PO DAILY oxybutynin chloride 10 mg tablet extended release 24hr 20 mg PO DAILY@0900 90 Days Qty: 180 3RF Rx Instructions: Take 2 tablets (20mg) by mouth daily. carbamazepine 200 mg tablet 200 mg PO BID Qty: 60 3RF (DME) diabetic shoes with 3 pairs inserts See Rx Instructions .Route .MEDSUPPLY Qty: 1 0RF Rx Instructions: As directed HOME Cymbalta 60 mg capsule,delayed release(DR/EC) 60 mg PO DAILY@0900 Qty: 30 2RF Ingrezza 80 mg capsule 80 mg PO DAILY Qty: 30 2RF clopidogrel 75 mg tablet 75 mg PO DAILY@0900 Qty: 90 3RF prednisone 5 mg tablet See Rx Instructions PO DAILY Qty: 60 0RF Rx Instructions: 1-2 tablets PO daily; hydroxychloroquine 200 mg tablet 200 mg PO BID Qty: 60 0RF prednisone 5 mg tablet See Rx Instructions PO DAILY Qty: 30 0RF Rx Instructions: 1-2 daily orally daily; gabapentin 800 mg tablet See Rx Instructions .ROUTE .COMPLEX Qty: 90 4RF Dose Instruction: TAKE 1 TABLET BY MOUTH THREE TIMES DAILY Rx Instructions: TAKE 1 TABLET BY MOUTH THREE TIMES DAILY nitroglycerin 0.4 mg tablet, sublingual 0.4 mg sublingual Q5MIN PRN (Reason: Chest Pain) meloxicam 7.5 mg tablet 7.5 mg PO DAILY@0900 hydrochlorothiazide 25 mg tablet 25 mg PO DAILY@0900 Ventolin HFA 90 mcg/actuation HFA aerosol inhaler See Rx Instructions .ROUTE .COMPLEX Rx Instructions: inhaled DIRECTED fenofibrate 54 mg tablet 54 mg PO DAILY@2100 potassium chloride 10 mEq tablet extended release 10 meq PO DAILY@0900 baclofen 10 mg tablet 10 mg PO Q8H PRN (Reason: muscle spasm/pain) Qty: 10 0RF Referrals: Brett Guallpa MD [Primary Care Provider] - Coding Level of Care Code ED [facility] [employer] for Aicha Jean Baptiste
[2022-09-05 18:42] LABS: Basophils % 0.6 %; Eosinophils # 0.1 10^3/uL (0.0-0.8); Eosinophils % 1.1 %; Hematocrit 37.7 % (37.0-47.0); Hemoglobin 12.2 g/dL (11.5-15.3); Lymphocytes # 1.5 10^3/uL (0.8-4.8); Lymphocytes % 24.3 %; Mean Corpuscular HGB Conc 32.4 g/dL (30.0-36.0); Mean Corpuscular Hemoglobin 29.6 pg (28.0-34.0); Mean Corpuscular Volume 91.5 fl (81-99); Mean Platelet Volume 9.2 fL (7.4-10.4); Monocytes # 0.5 10^3/uL (0.2-0.9); Monocytes % 7.8 %; Neutrophils # 4.12 10^3/uL (1.8-7.7); Neutrophils % 65.9 %; Nucleated Red Blood Cells % 0 %; Platelet Count 292 10^3/cmm (130-400); Red Blood Count 4.12 10^6/uL (4.1-5.3); Red Cell Distribution Width 12.3 % (12.1-15.1); White Blood Count 6.3 10^3/uL (4.0-10.0)
[2022-09-05 19:07] LABS: Ammonia 25 umol/L (11-51)
[2022-09-05 19:10] LABS: INR 0.91 (0.8-1.2)
--- NOTE | 2022-09-05 19:10 | CTR_ITS ---
PROCEDURE INFORMATION: Exam: CT Left Upper Extremity Without Contrast, Shoulder Exam date and time: 09/05/2022 7:20 PM Age: 76 years old Clinical indication: Pain; Shoulder; Left; Additional info: Fall, shoulder pain, abnormal XR TECHNIQUE: Imaging protocol: Computed tomography of the left upper extremity without contrast. Exam focused on the shoulder. Radiation optimization: All CT scans at this facility use at least one of these dose optimization techniques: automated exposure control; mA and/or kV adjustment per patient size (includes targeted exams where dose is matched to clinical indication); or iterative reconstruction. REPORTING DATA: Count of CT and Cardiac NM exams in prior 12 months: This patient has received 6 known CTs and 0 known cardiac nuclear medicine studies in the 12 months prior to the current study. COMPARISON: CR (CHEST, ) 09/05/2022 6:46 PM RADIATION DOSE METRICS: Total DLP (mGy-cm): 782 FINDINGS: Bones/joints: Comminuted, minimally displaced left proximal humerus greater tuberosity fracture is seen (series 4, images 117 to 129). This correlates with the left shoulder radiographic findings. There is 0.1 cm distraction of some of the fracture fragments. There is no fracture line extension into the left humeral surgical neck. There is no dislocation of the humeral head from the glenoid fossa. Mild glenohumeral osteoarthritic changes are seen with joint space narrowing and tiny osteophytes. Some subchondral since degenerative lucencies are seen. Moderate acromioclavicular degenerative changes are seen. The clavicle and scapula appear normal. The coracoclavicular space is normal. Acute, minimally displaced left anterolateral 3rd through 5th rib fractures are seen (series 4, image 163, series 4, image 174 and series 4, image 187). Some degenerative changes of the incompletely visualized cervical spine are seen. There is osteopenia. Soft tissues: Moderate to severe centrilobular emphysema is seen in the visualized left lung. Left apical solid 0.7 x 0.6 cm nodule is seen with irregular borders (series 4, image 152). Recommend follow-up per Fleischner society recommendations. Nonemergent chest CT may be performed for complete evaluation. The visualized shoulder girdle musculature is unremarkable on noncontrast CT assessment. No focal hematoma is identified. Other findings: MRI may be performed for further assessment as clinically warranted. CT/CT shoulder LT wo con* [id number] IMPRESSION: 1. Comminuted, minimally displaced left proximal humerus greater tuberosity region fracture, as noted above. No dislocation of the humeral head from the glenoid fossa. Generalized osteopenia. Degenerative changes, as noted above. 2. Acute minimally displaced left anterolateral 3rd through 5th rib fractures. 3. Left apical solid 0.7 x 0.6 cm nodule with irregular borders (series 4, image 152). Recommend follow-up per Fleischner society recommendations. Nonemergent chest CT may be performed for complete evaluation. 4. Moderate to severe centrilobular emphysema in the visualized left lung.
[2022-09-05 19:29] LABS: Alanine Aminotransferase 11 U/L (0-33); Albumin Level 4.1 g/dL (3.5-5.2); Alkaline Phosphatase 115 U/L (35-105); Anion Gap 17.3 (5-19); Aspartate Amino Transferase 14 U/L (0-32); Blood Urea Nitrogen 40 mg/dL (8-23); Calcium 8.6 mg/dL (8.5-10.5); Carbon Dioxide 23 mmol/L (22-29); Chloride 90 mmol/L (98-107); Globulin 2.8 g/dL (1.3-4.6); Glucose 103 mg/dL (65-115); NT Pro B Type Natriuretic Pept 246 pg/mL (0-450); Osmolality Calculated 268 mOsm/kg (285-295); Potassium 6.3 mmol/L (3.5-5.1); Sodium 124 mmol/L (136-145); Total Bilirubin 0.3 mg/dL (0.15-1.2); Total Protein 6.9 g/dL (6.6-8.7)
[2022-09-05 19:32] LABS: Amphetamines Screen Urine Negative (Negative); Barbiturates Screen Urine Negative (Negative); Benzodiazepines Screen Urine Negative (Negative); Cocaine Screen Urine Negative (Negative); Opiate Screen Urine Negative (Negative); PCP Screen Urine Negative (Negative); THC Screen Urine Positive (Negative)
[2022-09-05 19:41] LABS: Add Urine Microscopic? YES; Bacteria Urine TRACE /hpf; Bilirubin Urine Neg (Negative); Blood Urine Neg (Negative); Glucose Urine UA Norm (Normal); Ketones Urine Negative (Negative); Leukocyte Esterase Urine 1+ (Negative); Nitrate Urine Negative (Negative); Protein Urine Neg (Negative); RBC Urine 0-4 /hpf (0-2); Specific Gravity, Urine 1.025 (1.005-1.030); Urine Appearance Clear (CLEAR); Urine Color Dark Yellow (Yellow); Urobilinogen Urine Norm (Negative); WBC Urine 0-4 /hpf (0-5); pH Urine 5 (5-7)
[2022-09-05 19:42] LABS: Add Urine Culture? No
[2022-09-05 20:29] LABS: Magnesium 1.6 mg/dL (1.7-2.3)
[2022-09-05] MEDS: sodium chloride 0.9% 1,000 ML 999 ML IV (20:40)
[2022-09-05] MEDS: calcium gluconate 0.1 gm/mL 10% SDV 10mL 1 GM IVP (20:42)
[2022-09-05] MEDS: insulin regular-human 100 units/1 mL 10 UNIT IVP (20:43)
--- NOTE | 2022-09-05 21:21 | P.HP_ITS ---
Providers/Chief Complaint Admitting Physician: Fariha Chowdary MD Primary Care Provider: Brett Guallpa MD Chief Complaint: Weakness, Dr. Guallpa sent over History of Present Illness Elyssa Daniels is a 76 year old female with history of bipolar disorder, chronic kidney disease, COPD, CAD status post PCI, diabetes mellitus, hyperlipidemia, hypertension, hypothyroidism, pulmonary nodules, depression, lupus, possible Parkinson's disease presented to the hospital today for having multiple falls in the last few weeks. She states that she has been falling since several years ag o however most recently has been falling more often. She states she is never really felt blacked out however this time she remembers blacking out and falling to the ground. Prior to falling she felt lightheaded and dizzy. She usually uses a walker or a cane but this time was not using either when she fell. She says she has also noticed that randomly she will collapse at times without any warning. Lives with a friend at home. Sees Dr. Echeverria for pulmonary nodules and Dr. Blackman is her lens hardener. Last few weeks otherwise she feels healthy has not had any diarrhea nausea vomiting abdominal pain chest pain, shortness of breath. At this time however patient complains of chest pain which she says is most likely due to her rib fracture. She also has left shoulder pain. In the ER BP 148/66, respiratory 16, pulse 65, temperature 98.0, saturating 93% on room air. Patient is edentulous. CT shoulder was done which showed comminuted minimally displaced left proximal humerus greater tuberosity fracture. Acute minimally displaced left anterolateral third through fifth rib fractures. Left apical solid 0.7 5.6 cm nodule with irregular borders. Recommend follow-up per Fleischner Society recommendations. Moderate to severe centrilobular emphysema in left lung. Labs significant for sodium 124, potassium 6.3, chloride 90, bicarb 23, BUN 40, creatinine 1.8, glucose 103. WBC 6.3. Urinalysis positive for urine leukocyte esterase and urine drug screen positive for marijuana. Dr. Barkley from orthopedic surgery was contacted who advised to place immobilizer for the shoulder and to follow-up outpatient with orthopedics. For hyperkalemia patient was given 1 g calcium chloride, 10 units IV insulin, an amp of D50. Of note patient has been diagnosed with Parkinson's disease in the past and has been seeing Dr. Fung for it. She is also been receiving Botox injections for lip dyskinesia. Please see neurology notes for further details. Medications/Allergies Home Medications Medication Instructions Recorded Confirmed Last Taken Type atorvastatin 80 mg tablet (Lipitor) 80 mg PO DAILY@0900 06/03/19 08/07/22 09/03/20 History levothyroxine 100 mcg capsule 100 mcg PO DAILY@0900 06/03/19 08/07/22 09/03/20 History losartan 100 mg tablet 100 mg PO DAILY@0906/03/19 08/07/22 09/03/20 History tolterodine 2 mg tablet (Detrol) 2 mg PO BID@0900,209906/03/19 08/07/22 09/03/20 History cholecalciferol (vitamin D3) 50 50 mcg PO DAILY@0900 03/26/20 08/07/22 09/03/20 History mcg (2,000 unit) capsule nitroglycerin 0.4 mg sublingual 0.4 mg sublingual Q5MIN PRN Chest 04/20/20 08/07/22 09/03/20 History tablet Pain metoprolol succinate 50 mg capsule 75 mg PO DAILY@0900 05/05/20 08/07/22 09/03/20 History sprinkle, ext. release 24 hr albuterol sulfate 90 mcg/actuation See Rx Instructions .Route .COMPLEX 09/03/20 08/07/22 Unknown History aerosol inhaler (Ventolin HFA) fenofibrate 54 mg tablet 54 mg PO DAILY@209909/03/20 08/07/22 09/03/20 History hydrochlorothiazide 25 mg tablet 25 mg PO DAILY@89909/03/20 08/07/22 09/03/20 History meloxicam 7.5 mg tablet 7.5 mg PO DAILY@89909/03/20 08/07/22 Unknown History potassium chloride 10 mEq 10 meq PO DAILY@89909/03/20 08/07/22 09/03/20 History tablet,extended release metformin 500 mg tablet 1,000 mg PO BID@0900,2100 10/01/20 08/07/22 Unknown History budesonide 160 mcg-glycopyr 9 2 inh inhalation BID 30 days #10.7 11/22/20 08/07/22 Unknown Rx mcg-formot 4.8 mcg/actuation HFA grams inhaler (Breztri Aerosphere) amlodipine 5 mg tablet 5 mg PO DAILY 11/29/20 08/07/22 Unknown History clopidogrel 75 mg tablet 75 mg PO DAILY@0900 #90 tabs 01/24/21 08/07/22 Unknown Rx docusate sodium 100 mg capsule 100 mg PO BID 03/14/21 08/07/22 Unknown History (Colace) ropinirole 2 mg tablet 2 mg PO DAILY 03/14/21 08/07/22 Unknown History torsemide 5 mg tablet 5 mg PO DAILY 03/14/21 08/07/22 Unknown History prednisone 5 mg tablet See Rx Instructions PO DAILY #60 06/14/21 08/07/22 Unknown Rx tabs hydroxychloroquine 200 mg tablet 200 mg PO BID #60 tabs 08/01/21 08/07/22 Unknown Rx carbamazepine 200 mg tablet 200 mg PO BID #60 tabs 08/31/21 08/07/22 Unknown Rx baclofen 10 mg tablet 10 mg PO Q8H PRN muscle spasm/pain 02/07/22 08/07/22 Unknown Rx #10 tabs oxybutynin chloride 10 mg 20 mg PO DAILY@0900 Overactive 02/07/22 08/07/22 Unknown Rx tablet,extended release 24 hr bladder, incontinence 90 days #180 tabs prednisone 5 mg tablet See Rx Instructions PO DAILY #30 02/15/22 08/07/22 Unknown Rx tabs gabapentin 800 mg tablet See Rx Instructions .Route 05/03/22 08/07/22 Unknown Rx .COMPLEX #90 tabs diabetic shoes with 3 pairs inserts #1 ea 05/22/22 08/07/22 Unknown Rx duloxetine 60 mg capsule,delayed 60 mg PO DAILY@0900 #30 caps 08/03/22 08/07/22 Unknown Rx release (Cymbalta) valbenazine 80 mg capsule 80 mg PO DAILY #30 caps 08/03/22 08/07/22 Unknown Rx (Ingrezza) Allergies Allergy/AdvReac Type Severity Reaction Status Date / Time cephalexin [From Keflex] Allergy Mild ADR-Itching Verified 09/05/22 17:46 PFSH Acute PFSH: Medical History Alcohol use disorder in remission Amphetamine use disorder, moderate, in sustained remission Bipolar disorder, in partial remission, most recent episode manic Cannabis use disorder, mild, in sustained remission, abuse Chronic kidney disease (CKD) Chronic obstructive pulmonary disease Coronary artery disease Patient with stents Diabetes mellitus Hyperlipidemia Hypertension Hypothyroidism Incidental pulmonary nodule, > 3mm and < 8mm Lupus Major depressive disorder, recurrent, in partial remission Psychiatric care Tobacco use disorder, mild, in sustained remission Surgical History History of back surgery (01/17/13) History of bilateral breast reduction surgery History of bilateral tubal ligation History of bladder surgery (~1989) Vaginal Urethral sling with possible anchors . Performed by Dr. Salas at [facility] – [place]. History of cholecystectomy History of colonoscopy with polypectomy (~04/20/20) 2016 History of coronary angioplasty with insertion of stent 2006: 2 stents. 2008: 2 stents. History of dilation and curettage (~1982) History of hand surgery Repair right thumb fracture History of hemorrhoidectomy History of right cataract extraction History of vaginal hysterectomy Still has ovaries. Performed in [place], [place]. Performed due to bleeding. Family History Brother Heart disease Hypertension Hypercholesteremia Diabetes Sister Thyroid condition Denies family history of Colon cancer Ovarian cancer Clotting disorder Breast cancer Anesthesia complication Bleeding disorder Uterine cancer Stroke Social History Smoking and tobacco status: former smoker Smoking risk assessment/counseling performed?: No Counseling given: No Substance/Drug Use: never Counseling given: No Lives independently: Yes Household members: none Marital status: Current occupational status: disabled Do you think of yourself as: Straight/Heterosexual Current gender identity: Female Vitals/I&O/Wt Last Vital Signs Temp 98.0 F 09/05/22 17:46 Pulse 65 09/05/22 19:36 Resp 16 09/05/22 20:06 BP 148/66 09/05/22 20:06 Pulse Ox 93 09/05/22 20:06 O2 Del Method Room Air 09/05/22 17:46 09/05/22 09/05/22 09/05/22 06:59 14:59 22:59 Intake Total 50 / 50 Balance 50 / 50 Weight last 48 hrs Weight 78.018 kg Physical Exam Narrative: General: Alert oriented x3, patient seen lying in bed. Comfortable at this time. HEENT: Normocephalic, atraumatic, EOMI, Cardio: Regular rate rhythm, normal S1-S2, Respiratory: Good bilateral air entry, no wheezes no rhonchi appreciated Extremities: no edema, no cyanosis Left shoulder bruising Left back bruising Left outer thigh area bruise Bruise top part left foot, metatarsal 5th toe Left knee old wound partly scabbed Data 09/05/22 18:33 09/05/22 18:33 A&P Assessment and plan (1) Acute hyperkalemia: (2) Acute hyponatremia: (3) Closed left humeral fracture: Qualifiers: Encounter type: initial encounter Fracture alignment: displaced Humerus Location: greater tuberosity Qualified Code(s): S42.252A - Displaced fracture of greater tuberosity of left humerus, initial encounter for closed fracture (4) Left rib fracture: Qualifiers: Encounter type: initial encounter Fracture type: closed Rib fracture type: multiple ribs Qualified Code(s): S22.42XA - Multiple fractures of ribs, left side, initial encounter for closed fracture (5) Major depressive disorder, recurrent, in partial remission: (6) Lupus: (7) Incidental pulmonary nodule, > 3mm and < 8mm: (8) Chronic obstructive pulmonary disease: Qualifiers: COPD type: unspecified COPD Qualified Code(s): J44.9 - Chronic obstructive pulmonary disease, unspecified (9) Coronary artery disease: Qualifiers: Coronary Disease-Associated Artery/Lesion type: [place] artery [place] vs. transplanted heart: [place] heart Associated angina: without angina Qualified Code(s): I25.10 - Atherosclerotic heart disease of [place] coronary artery without angina pectoris (10) Diabetes mellitus: (11) Hypothyroidism: (12) Hyperlipidemia: (13) Hypertension: Qualifiers: Hypertension type: essential hypertension Qualified Code(s): I10 - Essential (primary) hypertension (14) Orofacial dyskinesia: (15) Tardive dyskinesia: Plan #Fall with syncope #3rd-5th rib fracture on left side #Hyponatremia, hyperkalemia #DAKSHA on CKD, possibly pre-renal, dehydration #Left shoulder nondisplaced fracture #Lupus #Diabetes mellitus type 2 #Hypertension #Hyperlipidemia #CAD status post PCI #COPD #Parkinson's? ? Patient does not have a list of her medications with her and she stated her friend took him home. Med rec to be completed in a.m. ? Continue amlodipine, atorvastatin, Plavix, duloxetine, hydroxychloroquine twice daily, levothyroxine, metoprolol, oxybutynin, prednisone ? Hold torsemide, hydrochlorothiazide at this time ? Check orthostatic vitals ? Check vitamin B12 level ? Check cardiac echo ? Monitor on telemetry to rule out occult arrhythmia. Suggestion to consider Holter monitor at discharge ? Neurology follow-up. There seems to be a history of tardive dyskinesia as well. There could be possibility of falls due to Parkinson's?. I do not see carbidopa-levodopa on her medication list. Patient was placed on Abilify by Dr. Fung in the past. Please discuss with her over the phone before making medication changes ? Continue to follow-up with Dr. Onofre as an outpatient for pulmonary nodules ? Orthopedic surgery consulted. Await further recommendations. Place shoulder immobilizer for now. Will need referral outpatient as well ? Lidocaine patch for rib fractures ? Morphine 2 mg IV every 4 hours as needed ? Hyperkalemia treated in ER. Recheck BMP at 1 AM. Will consider addition of Kayexalate regimen ? Continue normal saline 75 cc/h ? Check urine sodium, urine and serum osmolality. ? BMP every 4 hours. Goal correction no greater than 6 to 8 mmol in 24 hours. ? DuoNeb every 6 hours - Baseline cr 1.1-1.2. Now 1.8. Possibly due to pre-renal cause, dehydration. Will give fluids for now and re-assess. Full code SCDs, heparin SQ twice daily. Attestations Medical Necessity Statement*: Greater than 2 midnight stay for work-up and management of falls, rib fracture, shoulder fracture, hyperkalemia, hyponatremia. Coding Level of Care Code G0426 (50 min) TH Encounter Time (min): 60 Patient seen via Telehealth in the acute care setting (hospital or ED location) by agreement and consent of patient or patient chemical sales representative. Telehealth technology used during the visit includes video and audio. This patient encounter is appropriate and reasonable under the circumstances given the patient?s particular presentation at this time. The patient has been advised of the potential risks and limitations of this mode of treatment (including but not limited to the absence of in-person examination at this time) and has agreed to be treated by an off-site physician for this visit. If deemed clinically necessary from this telehealth visit, or if condition or consent for telehealth visit changes, an in-person visit will be arranged. For this encounter, total time for the origination of telehealth care on this date is as shown. Other Coding Information Focused coding review requested Diagnoses Acute hyperkalemia E87.5 Acute hyponatremia E87.1 Closed left humeral fracture S42.252A Encounter type: initial encounter Fracture alignment: displaced Humerus Location: greater tuberosity Left rib fracture S22.42XA Encounter type: initial encounter Fracture type: closed Rib fracture type: multiple ribs Major depressive disorder, recurrent, in partial remission F33.41 Lupus M32.9 Incidental pulmonary nodule, > 3mm and < 8mm R91.1 Chronic obstructive pulmonary disease J44.9 COPD type: unspecified COPD Coronary artery disease I25.10 Coronary Disease-Associated Artery/Lesion type: [place] artery [place] vs. transplanted heart: [place] heart Associated angina: without angina Diabetes mellitus E11.9 Hypothyroidism E03.9 Hyperlipidemia E78.5 Hypertension I10 Hypertension type: essential hypertension Orofacial dyskinesia G24.4 Tardive dyskinesia G24.01
[2022-09-05 21:56] LABS: Glucose Point of Care 119 mg/dL (70-110)
[2022-09-05] MEDS: sodium chloride 0.9% 1,000 ML 75 ML IV (21:56)
--- NOTE | 2022-09-05 22:02 | USCV_ITS ---
Elyssa Daniels Age: 76 Gender: F : 1945 Exam Date: 09/05/2022 22:44 Ordering Phys: Fariha Chowdary MD Technologist: CHUCK [place] [facility] [place]ication: Syncope with GLF, fractured LEFT shoulder and LEFT ribs. No history of cardiac intervention per patient. BP: 170 / 82 HR: 66 Rhythm: Sinus Technical Quality: Adequate MEASUREMENTS (Male / Female) Normal Values 2D ECHO LV Diastolic Diameter PLAX 3.9 cm 4.2 - 5.9 / 3.9 - 5.3 cm LV Systolic Diameter PLAX 2.7 cm IVS Diastolic Thickness 1.1 cm 0.6 - 1.0 / 0.6 - 0.9 cm IVS Systolic Thickness 1.5 cm LVPW Diastolic Thickness 1.0 cm 0.6 - 1.0 / 0.6 - 0.9 cm LVPW Systolic Thickness 1.4 cm LVOT Diameter 1.6 cm LV Ejection Fraction 2D Teich 58.1 % LV Ejection Fraction MOD 2C 59.3 % LV Ejection Fraction 2C AL 58.6 % LA Diameter 3.7 cm LA Width 3.4 cm LA Height 4.2 cm RA Width 3.3 cm RA Height 3.6 cm Aorta at Sinotubular Diameter 2.7 cm IVC Diameter 1.5 cm M-MODE Aortic Annulus Diameter 2.8 cm LA Ao Ratio MM 1.4 MV E Point Septal Separation 0.6 cm DOPPLER AV Peak Velocity 95.0 cm/s LVOT Peak Velocity 109.0 cm/s AV Area Cont Eq vti 2.5 cm squared AV Area Cont Eq pk 2.2 cm squared MV Peak Velocity 113.0 cm/s MV Area PHT 2.8 cm squared Mitral E to A Ratio 0.7 MV E' Velocity 41.0 cm/s Mitral E to MV E' Ratio 8.1 Mitral E to LV E' Lateral Ratio 8.2 Mitral E to LV E' Septal Ratio 8.0 TR Peak Velocity 263.3 cm/s TR Peak Gradient 27.7 mmHg TV Peak E Velocity 38.0 cm/s Right Atrial Pressure 5.0 mmHg Pulmonary Artery Systolic Pressu 32.7 mmHg PV Peak Velocity 100.0 cm/s RV Acceleration Time 0.1 s RV Ejection Time 0.4 s RV AcT/ET 0.2 FINDINGS Left Ventricle Normal left ventricular size, systolic function and wall thickness, with no regional wall motion abnormalities. Left ventricular ejection fraction is estimated at 60 %. Normal diastolic function. Right Ventricle Normal right ventricular size and systolic function. Right ventricular systolic pressure 24 mmHg. Right Atrium Normal right atrial size. Left Atrium Normal left atrial size. Mitral Valve Structurally normal mitral valve. No mitral valve stenosis. No significant mitral valve regurgitation. Aortic Valve Probably sclerotic trileaflet aortic valve. No aortic valve stenosis. No aortic valve regurgitation. Tricuspid Valve Tricuspid valve not well visualized. Trace tricuspid valve regurgitation. Pulmonic Valve Structurally normal pulmonic valve. No pulmonary valve stenosis. Trace pulmonary valve regurgitation. Pericardium No pericardial effusion. Aorta Normal sized aortic root. IVC Normal IVC dimension with >50% respiratory change of the inferior vena cava. CONCLUSIONS 1. Normal left ventricular size, systolic function and wall thickness, with no regional wall motion abnormalities. Left ventricular ejection fraction is estimated at 60 %. Normal diastolic function. 2. No significant change when compared to study dated 05/17/2020. Steph Nash MD (Electronically Signed) Final Date: 06 Sep 2022 12:32 S
[2022-09-05] MEDS: morphine 4 mg/mL SDV 1 mL 2 MG IVP (22:32)
[2022-09-05] MEDS: ondansetron 2 mg/ML SDV 2 mL 4 MG IVP (22:32)
[2022-09-05] MEDS: heparin 5,000 unit/mL INJ 1 mL 5000 UNIT SUBCUT (22:34)
[2022-09-05 22:52] LABS: Procalcitonin 0.07 ng/mL (0-0.5)
[2022-09-06] VITALS (18 sets, daily range): BP systolic 103–150; BP diastolic 53–84; PULSE 55–70; RESP 14–18; TEMP 36.8–37.1; O2SAT 90–100
[2022-09-06 00:39] LABS: Urine Random Sodium 42 mmol/L
[2022-09-06 01:40] LABS: Basophils % 0.6 %; Eosinophils # 0.1 10^3/uL (0.0-0.8); Eosinophils % 2.2 %; Hematocrit 35.2 % (37.0-47.0); Hemoglobin 11.5 g/dL (11.5-15.3); Lymphocytes # 1.8 10^3/uL (0.8-4.8); Lymphocytes % 34.4 %; Mean Corpuscular HGB Conc 32.7 g/dL (30.0-36.0); Mean Corpuscular Hemoglobin 29.6 pg (28.0-34.0); Mean Corpuscular Volume 90.7 fl (81-99); Mean Platelet Volume 9.5 fL (7.4-10.4); Monocytes # 0.5 10^3/uL (0.2-0.9); Monocytes % 10.4 %; Neutrophils # 2.65 10^3/uL (1.8-7.7); Nucleated Red Blood Cells % 0 %; Platelet Count 253 10^3/cmm (130-400); Red Blood Count 3.88 10^6/uL (4.1-5.3); Red Cell Distribution Width 12.2 % (12.1-15.1); White Blood Count 5.1 10^3/uL (4.0-10.0)
--- NOTE | 2022-09-06 01:50 | PC.NURSE ---
notified Dr. Chowdary to verify new order for Smyth Catheter. pt is AAOx4, pt is continent of Bowel and Bladder, pt ambulates to bathroom with standby assist. Dr. Chowdary gave new order to hold off on placing Smyth Catheter at this time.
[2022-09-06 02:10] LABS: Alanine Aminotransferase 10 U/L (0-33); Albumin Level 3.6 g/dL (3.5-5.2); Alkaline Phosphatase 103 U/L (35-105); Anion Gap 12.5 (5-19); Aspartate Amino Transferase 13 U/L (0-32); Blood Urea Nitrogen 36 mg/dL (8-23); Calcium 8.8 mg/dL (8.5-10.5); Carbon Dioxide 25 mmol/L (22-29); Chloride 95 mmol/L (98-107); Globulin 2.3 g/dL (1.3-4.6); Glucose 132 mg/dL (65-115); Magnesium 1.5 mg/dL (1.7-2.3); Osmolality Calculated 276 mOsm/kg (285-295); Potassium 4.5 mmol/L (3.5-5.1); Sodium 128 mmol/L (136-145); Total Bilirubin 0.2 mg/dL (0.15-1.2); Total Protein 5.9 g/dL (6.6-8.7)
[2022-09-06] MEDS: morphine 4 mg/mL SDV 1 mL 2 MG IVP (02:26)
[2022-09-06 02:49] LABS: Vitamin B12 328 pg/mL (232-1245)
--- NOTE | 2022-09-06 07:36 | PC.OT ---
OT EVALUATION ORDERS RECEIVED. AWAITING ORTHO CONSULT; WILL EVAL AFTER TREATMENT HAS BEEN DETERMINED.
[2022-09-06] MEDS: oxyCODONE 5 mg IR Tab/Cap PO ×4 (07:41→22:58)
[2022-09-06] MEDS: ipratropium-albuterol 3 mL Neb INHALATION ×3 (07:54→20:21)
--- NOTE | 2022-09-06 08:17 | PC.PHAR ---
Addendum entered by Corinne Wisdom 09/06/22 09:15: med list from [facility] was faxed but hasnt been updated since february 2022 per tara from [facility]-so medications entered are from what ext med history shows has been filled recently and what was on previously entered med list- pt unable to verify meds- Original Note: pt states she has a nurse that sets up her meds from [facility]- theo from [facility] [phone] will fax med list
[2022-09-06] MEDS: lidocaine 5% Patch 1 PATCH TOPICAL ×2 (09:52→20:16)
[2022-09-06] MEDS: heparin 5,000 unit/mL INJ 1 mL 5000 UNIT SUBCUT ×2 (09:57→21:34)
--- NOTE | 2022-09-06 10:22 | P.PN_ITS ---
Subjective Subjective: Marijuana positive Hyponatremia noted Hypomagnesium noted B12 low normal No signs of UTI no Acute distress Vitals/I&O/Wt Last Vital Signs Temp 98.7 F 09/06/22 08:00 Pulse 70 09/06/22 08:00 Resp 14 09/06/22 08:00 BP 145/77 09/06/22 08:00 Pulse Ox 92 09/06/22 08:00 O2 Del Method Room Air 09/06/22 08:00 O2 Flow Rate 2 09/06/22 04:00 09/05/22 09/06/22 09/06/22 22:59 06:59 14:59 Intake Total 1290 / 1290 480 / 480 Balance 1290 / 1290 480 / 480 Weight last 48 hrs Weight 78.018 kg Physical Exam Narrative: Awake and alert Left arm in a sling Abdomen soft Looks dehydrated Abdomen soft Lower 70 no edema GCS 15 Nonfocal neuro exam Pleasant and cooperative Currently on room air No signs of wrist drop left side Data 09/06/22 01:04 09/06/22 01:04 A&P Assessment and plan (1) Acute hyponatremia: (2) Acute renal insufficiency: (3) Closed left humeral fracture: Qualifiers: Encounter type: initial encounter Fracture alignment: displaced Humerus Location: greater tuberosity Qualified Code(s): S42.252A - Displaced fracture of greater tuberosity of left humerus, initial encounter for closed fracture (4) Left rib fracture: Qualifiers: Encounter type: initial encounter Fracture type: closed Rib fracture type: multiple ribs Qualified Code(s): S22.42XA - Multiple fractures of ribs, left side, initial encounter for closed fracture (5) Major depressive disorder, recurrent, in partial remission: (6) Alcohol use disorder in remission: (7) Cannabis use disorder, mild, in sustained remission, abuse: (8) Tobacco use disorder, mild, in sustained remission: (9) Cervicalgia: (10) Tardive dyskinesia: Plan Recurrent falls Parkinson related resting tremors Shy-Drager syndrome? Recurrent falls, history of polysubstance abuse, currently positive for mariju marielos B12 low normal We will start on B12 supplements No active signs of stroke, NIH 0 Cervical spine with osteoarthritis otherwise no significant changes on previous imaging No signs of nystagmus, symptoms less likely related to vertigo Will request with PT to do [place]-Hallpike maneuver Left humeral fracture no signs of wrist drop 3rd-5th rib fracture Continue opioids along bowel regimen Acute on chronic kidney disease anticipate improvement with IV fluid hydration Hyponatremia: Continue IV fluid hydration for now Parkinson related tremor no acute worsening Active smoker, no COPD exacerbation at this point History of coronary disease, diabetes, Cardiac consistent carb diet Full code DVT prophylaxis on board Awaiting orthopedic consultation For pulm nodule she follows up with Dr. Onofre Atttelma Medical Necessity Statement*: Continue medical management Diagnoses Acute hyponatremia E87.1 Acute renal insufficiency N28.9 Closed left humeral fracture S42.252A Encounter type: initial encounter Fracture alignment: displaced Humerus Location: greater tuberosity Left rib fracture S22.42XA Encounter type: initial encounter Fracture type: closed Rib fracture type: multiple ribs Major depressive disorder, recurrent, in partial remission F33.41 Alcohol use disorder in remission F10.91 Cannabis use disorder, mild, in sustained remission, abuse F12.11 Tobacco use disorder, mild, in sustained remission F17.201 Cervicalgia M54.2 Tardive dyskinesia G24.01
--- NOTE | 2022-09-06 17:29 | P.CONIM_ITS ---
Providers/Reason For Consult Consulting Physician/Specialty*: Cherri Barkley MD Reason for Consult*: Left proximal humerus fracture Requesting Physician: Dr. Devin Araujo Attending Physician: Jose F Leon MD Primary Care Provider: Brett Guallpa MD History of Present Illness History of Present Illness Elyssa Daniels is a 76 year old female who has a history of multiple medical disorders including bipolar disorder, chronic kidney disease, coronary artery disease and COPD, diabetes, hypertension, depression, possible Parkinson's, and hyperlipidemia. The patient reportedly had multiple falls over the past week, and she presented to the hospital last evening complaining of shoulder pain. The patient has had falls over the past several years, but recently, these have been increasing significantly. The patient lives in her home with a friend. She presented with significant shoulder pain, and as she normally uses a walker or cane, this is difficult with shoulder fracture. I was called by the emergency department, and advised that the patient should be treated with a shoulder immobilizer and could be followed as an outpatient, but the patient was admitted, and therefore I was consulted while she was in hospital. She was seen in her room today with her family present. Review of Systems General: Reports: 10 or more systems reviewed and unremarkable except in HPI and below Const: Denies: fever(s) or chills Eyes: Denies: change in vision or photophobia ENMT: Denies: throat pain or odynophagia Card: Denies: chest pain, palpitations or irregular heart rhythm Resp: Denies: dyspnea, productive cough or non-productive cough GI: Denies: abdominal pain, nausea, vomiting or diarrhea : Denies: flank pain, difficulty voiding or dysuria Musc: Reports: joint pain (Left shoulder pain); Denies: neck pain, back pain or joint warmth All/Imm: Denies: acute wheezing Medications/Allergies Home Medications Medication Instructions Recorded Confirmed Last Taken Type atorvastatin 80 mg tablet (Lipitor) 80 mg PO DAILY 06/03/19 09/06/22 09/03/20 History losartan 100 mg tablet 100 mg PO DAILY 06/03/19 09/06/22 09/03/20 History cholecalciferol (vitamin D3) 50 50 mcg PO DAILY 03/26/20 09/06/22 09/03/20 History mcg (2,000 unit) capsule albuterol sulfate 90 mcg/actuation 2 puff inhalation QID PRN 09/03/20 09/06/22 Unknown History aerosol inhaler (Ventolin HFA) Shortness Of Breath fenofibrate 54 mg tablet 54 mg PO DAILY 09/03/20 09/06/22 09/03/20 History hydrochlorothiazide 25 mg tablet 25 mg PO DAILY 09/03/20 09/06/22 09/03/20 History meloxicam 7.5 mg tablet 7.5 mg PO DAILY 09/03/20 09/06/22 Unknown History potassium chloride 10 mEq 10 meq PO DAILY 09/03/20 09/06/22 09/03/20 History tablet,extended release budesonide 160 mcg-glycopyr 9 2 inh inhalation BID 30 days #10.7 11/22/20 09/06/22 Unknown Rx mcg-formot 4.8 mcg/actuation HFA grams inhaler (Breztri Aerosphere) docusate sodium 100 mg capsule 100 mg PO BID PRN Constipation 03/14/21 09/06/22 Unknown History (Colace) ropinirole 2 mg tablet 2 mg PO BEDTIME 03/14/21 09/06/22 Unknown History torsemide 5 mg tablet 5 mg PO DAILY 03/14/21 09/06/22 Unknown History hydroxychloroquine 200 mg tablet 200 mg PO BID #60 tabs 08/01/21 09/06/22 Unknown Rx carbamazepine 200 mg tablet 200 mg PO BID #60 tabs 08/31/21 09/06/22 Unknown Rx baclofen 10 mg tablet 10 mg PO Q8H PRN muscle spasm/pain 02/07/22 09/06/22 Unknown Rx #10 tabs diabetic shoes with 3 pairs inserts #1 ea 05/22/22 09/06/22 Unknown Rx valbenazine 80 mg capsule 80 mg PO DAILY #30 caps 08/03/22 09/06/22 Unknown Rx (Ingrezza) amlodipine 10 mg tablet 10 mg PO DAILY 09/06/22 09/06/22 Unknown History clopidogrel 75 mg tablet 75 mg PO DAILY 09/06/22 09/06/22 Unknown History duloxetine 60 mg capsule,delayed 60 mg PO DAILY 09/06/22 09/06/22 Unknown History release (Cymbalta) gabapentin 800 mg tablet 800 mg PO TID 09/06/22 09/06/22 Unknown History levothyroxine 100 mcg tablet 100 mcg PO DAILY 09/06/22 09/06/22 Unknown History metformin 1,000 mg tablet 1,000 mg PO BID 09/06/22 09/06/22 Unknown History metoprolol succinate 50 mg 75 mg PO DAILY 09/06/22 09/06/22 Unknown History tablet,extended release 24 hr nitroglycerin 0.4 mg sublingual 0.4 mg sublingual Q5M PRN Chest 09/06/22 09/06/22 Unknown History tablet (Nitrostat) Pain oxybutynin chloride 10 mg 20 mg PO DAILY Overactive bladder, 09/06/22 09/06/22 Unknown History tablet,extended release 24 hr incontinence promethazine 12.5 mg tablet 12.5 mg PO QID PRN Nausea And 09/06/22 09/06/22 Unkn own History Vomiting Allergies Allergy/AdvReac Type Severity Reaction Status Date / Time cephalexin [From Keflex] Allergy Mild ADR-Itching Verified 09/06/22 08:55 Current Medications Generic Name Dose Route Start Last Admin Trade Name Freq PRN Reason Stop Dose Admin Albuterol/Ipratropium 3 ml 09/06/22 08:00 09/06/22 15:36 Ipratropium-Albuterol 3 Ml Neb INHALATION Not Given QID.RESPIRATORY ANNIA Heparin Sodium (Porcine) 5,000 unit 09/05/22 21:30 09/06/22 09:57 Heparin 5,000 Unit/Ml Inj 1 Ml SUBCUT 5,000 unit Q12H ANNIA Administration Lidocaine 1 patch 09/06/22 09:00 09/06/22 09:52 Lidocaine 5% Patch TOPICAL 1 patch [id number] ANNIA Administration Morphine Sulfate 2 mg 09/05/22 21:22 09/06/22 02:26 Morphine 4 Mg/Ml Sdv 1 Ml IVP 2 mg Q4H PRN Administration SEVERE PAIN Ondansetron HCl 4 mg 09/05/22 21:22 09/05/22 22:32 Ondansetron 2 Mg/Ml Sdv 2 Ml IVP 4 mg Q8H PRN Administration vomiting, or N/V if npo Oxycodone HCl 5 mg 09/06/22 07:33 09/06/22 13:25 Oxycodone 5 Mg Ir Tab/Cap PO 5 mg Q4H PRN Administration MODERATE PAIN PFSH Acute PFSH: Medical History Alcohol use disorder in remission Amphetamine use disorder, moderate, in sustained remission Bipolar disorder, in partial remission, most recent episode manic Cannabis use disorder, mild, in sustained remission, abuse Chronic kidney disease (CKD) Chronic obstructive pulmonary disease Coronary artery disease Patient with stents Diabetes mellitus Hyperlipidemia Hypertension Hypothyroidism Incidental pulmonary nodule, > 3mm and < 8mm Lupus Major depressive disorder, recurrent, in partial remission Psychiatric care Tobacco use disorder, mild, in sustained remission Surgical History History of back surgery (01/17/13) History of bilateral breast reduction surgery History of bilateral tubal ligation History of bladder surgery (~1989) Vaginal Urethral sling with possible anchors . Performed by Dr. Salas at [facility] [place]. History of cholecystectomy History of colonoscopy with polypectomy (~04/20/20) 2016 History of coronary angioplasty with insertion of stent 2006: 2 stents. 2008: 2 stents. History of dilation and curettage (~1982) History of hand surgery Repair right thumb fracture History of hemorrhoidectomy History of right cataract extraction History of vaginal hysterectomy Still has ovaries. Performed in [place], [place]. Performed due to bleeding. Family History Brother Heart disease Hypertension Hypercholesteremia Diabetes Sister Thyroid condition Denies family history of Colon cancer Ovarian cancer Clotting disorder Breast cancer Anesthesia complication Bleeding disorder Uterine cancer Stroke Social History Smoking and tobacco status: former smoker Smoking risk assessment/counseling performed?: No Counseling given: No Substance/Drug Use: never Counseling given: No Lives independently: Yes Household members: none Marital status: Current occupational status: disabled Do you think of yourself as: Straight/Heterosexual Current gender identity: Female Dietary Habits: Current diet type/program: regular Caffeine: Yes Caffeine intake frequency: coffee Number of coffee servings: 2 Vitals/I&O/Wt Last Vital Signs Temp 98.3 F 09/06/22 16:00 Pulse 59 L 09/06/22 16:00 Resp 17 09/06/22 16:00 BP 103/53 09/06/22 16:00 Pulse Ox 91 09/06/22 16:00 O2 Del Method Room Air 09/06/22 16:00 O2 Flow Rate 2 09/06/22 04:00 09/06/22 09/06/22 09/06/22 06:59 14:59 22:59 Intake Total 720 / 720 Balance 720 / 720 Weight last 48 hrs Weight 172 lb Physical Exam Const: COMMON NORMALS: no acute distress, average body habitus, patient oriented x3 and alert GENERAL APPEARANCE: cooperative and comfortable ORIENTATION/CONSCIOUSNESS: Yes awake HENMT: COMMON NORMALS: normocephalic and atraumatic HEAD & SCALP: normocephalic and atraumatic Eye: GENERAL EYE: appearance normal, both eyes and all related structures Chest: COMMONS NORMALS: normal inspection of the chest Resp: COMMON NORMALS: normal respiratory effort EFFORT & INSPECTION: Yes able to speak in complete sentences and Yes symmetric chest movement Extremity: LEFT UPPER EXTREMITY: Yes shoulder joint Left shoulder joint: Yes inspection (No significant swelling), Yes palpation (Tender over the greater tuberosity), Yes ROM (Not evaluated secondary to fracture) and Yes neurovascular exam (Intact distally) Neuro: COMMON NORMALS: patient oriented x3 SENSORIUM/ORIENTATION: Yes alert Psych: COMMON NORMALS: mental status grossly normal APPEARANCE: Yes grossly normal ATTITUDE: Yes calm and Yes engaged ATTENTION/CONCENTRATION: Yes attention grossly intact Skin: COMMON NORMALS: no rashes or lesions noted GENERAL SKIN EXAM: no rashes or lesions noted Data 09/06/22 01:04 09/06/22 01:04 Xray Ortho: My impression: I have personally reviewed the patient's x-rays of the left shoulder. There is evidence of a minimally displaced fracture of the greater tuberosity seen on initial x-ray evaluation and confirmed with CT imaging. On CT imaging, in addition to the findings of greater tuberosity and proximal humerus fracture, the patient is noted to have an upper lobe pulmonary nodule which reportedly has remained stable since previous imaging. A&P Assessment and plan (1) Closed left humeral fracture: Patient has a comminuted slightly displaced left greater tuberosity fracture in the proximal humerus. This has been evaluated by both x-ray and CT. As advised in the emergency department the patient needs to wear shoulder immobilizer. We will begin her on gentle range of motion exercises with physical therapy. The patient's rehabilitation will be complicated by the fact that she also has rib fractures. I have discussed with her the plan for inpatient physical therapy to see and evaluate and begin her on gentle range of motion exercises for the left upper extremity. While in the immobilizer, she is advised that she may remove the strap around her lower arm to allow her to use the lower arm in nonweightbearing activities. She will follow-up with me as an outpatient. Qualifiers: Encounter type: initial encounter Fracture alignment: displaced Humerus Location: greater tuberosity Qualified Code(s): S42.252A - Displaced fracture of greater tuberosity of left humerus, initial encounter for closed fracture Coding Level of Care Code Acute Code for Chg Fwd Diagnoses Closed left humeral fracture S42.252A Encounter type: initial encounter Fracture alignment: displaced Humerus Location: greater tuberosity
[2022-09-07] VITALS (11 sets, daily range): BP systolic 137–165; BP diastolic 73–82; PULSE 73–100; RESP 16–18; TEMP 36.3–37.3; O2SAT 91–100
[2022-09-07] MEDS: oxyCODONE 5 mg IR Tab/Cap PO ×2 (03:52→11:47)
[2022-09-07 05:01] LABS: Basophils % 0.7 %; Eosinophils % 0.7 %; Hematocrit 36.1 % (37.0-47.0); Hemoglobin 11.9 g/dL (11.5-15.3); Lymphocytes # 1.3 10^3/uL (0.8-4.8); Lymphocytes % 32.4 %; Mean Corpuscular Hemoglobin 29.8 pg (28.0-34.0); Mean Corpuscular Volume 90.3 fl (81-99); Mean Platelet Volume 9.4 fL (7.4-10.4); Monocytes # 0.5 10^3/uL (0.2-0.9); Monocytes % 12.7 %; Neutrophils # 2.19 10^3/uL (1.8-7.7); Neutrophils % 53.3 %; Nucleated Red Blood Cells % 0 %; Platelet Count 242 10^3/cmm (130-400); Red Cell Distribution Width 12.3 % (12.1-15.1); White Blood Count 4.1 10^3/uL (4.0-10.0)
[2022-09-07 05:15] LABS: D Dimer 1.26 ug/mIFEU (0-0.59)
[2022-09-07 05:21] LABS: Anion Gap 12.4 (5-19); Blood Urea Nitrogen 16 mg/dL (8-23); Calcium 9.1 mg/dL (8.5-10.5); Carbon Dioxide 26 mmol/L (22-29); Chloride 99 mmol/L (98-107); Glucose 113 mg/dL (65-115); Osmolality Calculated 278 mOsm/kg (285-295); Potassium 4.4 mmol/L (3.5-5.1); Sodium 133 mmol/L (136-145)
--- NOTE | 2022-09-07 07:36 | CT_ITS ---
WS: [id number] CTA OF THE CHEST WITH PULMONARY EMBOLISM PROTOCOL TECHNIQUE: High-resolution contrast enhanced CTA of the chest with coronal and sagittal reformatted i mages with pulmonary embolism protocol. MIP images are also reviewed. CLINICAL INFORMATION: syncope COMPARISON: CT chest August 29, 2022 DLP: 380.[address] scans at [facility] use at least one of these dose optimization techniques: automated e xposure control; mA and/or kV adjustment per patient size (includes targeted exams where dose is matc hed to clinical indication); or iterative reconstruction. FINDINGS: Proximal main pulmonary arteries are normal. Normal segmental and subsegmental pulmonary arteries. No evidence of pulmonary embolus. Moderate to advanced aortic atheromatous disease. Prior cholecystectomy. Small esophageal hiatal michelle ia. Mild splenomegaly. Visualized adrenal glands are normal. Hemorrhagic or proteinaceous LEFT renal lesion likely renal cyst. No mediastinal or hilar lymphadenopathy. No axillary lymphadenopathy. Previously described 6 mm spiculated lesion LEFT upper lobe is stable. Stable additional 4 mm nodule LEFT upper lobe. Moderate chronic emphysematous changes. No acute pulmonary infiltrates. Subsegmental atelectasis in the lung bases. CT/CT angio chest PE protcl [id number] IMPRESSION: 1. No evidence of pulmonary embolus. 2. No acute pulmonary infiltrates. 3. Stable spiculated lesion LEFT upper lobe measuring 6 mm.
[2022-09-07] MEDS: ipratropium-albuterol 3 mL Neb INHALATION (07:43)
[2022-09-07] MEDS: iohexol 350 mg/mL 500 mL Btl (per mL) IV (08:45)
[2022-09-07] MEDS: lidocaine 5% Patch 1 PATCH TOPICAL (08:52)
[2022-09-07] MEDS: heparin 5,000 unit/mL INJ 1 mL 5000 UNIT SUBCUT (08:53)
--- NOTE | 2022-09-07 09:54 | PM.DCS ---
Discharge Providers Date of Admission: 09/05/22 20:43 Date of Discharge: September 07, 2022 Attending Provider at Admission: Fariha Chowdary MD Attending Provider at Discharge: Jose F Leon MD Primary Care Provider: Brett Guallpa MD Diagnoses at Discharge Discharge Diagnosis (1) Closed left humeral fracture: Status: Acute Qualifiers: Encounter type: initial encounter Fracture alignment: displaced Humerus Location: greater tuberosity Qualified Code(s): S42.252A - Displaced fracture of greater tuberosity of left humerus, initial encounter for closed fracture Reason for Visit Reason for Visit: Weakness, Dr. Guallpa sent over Hospital Course Hospital Course 76-year female who has history of recurrent falls, resting tremors Parkinson related, not on any medication for Parkinson's, follow-up with Dr. Fung, lives with her friend presented to the hospital after 1 syncopal event, echo showed preserved ejection fraction with no signs of aortic stenosis or wall motion abnormality, CTA chest rule out PE however high D-dimer noted, her legs are not swollen at all, patient is following up with Dr. Onofre for pulmonary nodule, pulm nodule seems to be stable in dimensions, she was diagnosed with left 345 rib fractures along left-sided shoulder fracture for which Dr. Narayan was consulted, Dr. Narayan recommended outpatient conservative management and continuation of occupational therapy patient will receive opioids along bowel regimen. I have noticed bradycardia, EKG showing sinus rhythm with first-degree AV block I do not think bradycardia is causing syncope at this point, patient drug screen positive for marijuana she has low normal B12 level as well, orthostatics negative, Patient is also suffering from polypharmacy, at this point I will hold her torsemide and potassium supplements for at least 1 week Discontinue baclofen Physical Exam Narrative: Awake and alert Left arm in sling GCS 15 S1, S2 Abdomen soft Currently on room air Pleasant cooperative No acute distress Discharge Data Studies Completed and Pending Completed Studies During Hospitalization Category Date Time Status CT shoulder LT wo con* [id number] Stat Cat Scan 09/05/22 19:10 Completed CTA PE [CT angio chest PE protcl [id number]] Routine Cat Scan 09/07/22 07:36 Completed XR chest 1V portable [id number] Stat Exams 09/05/22 17:52 Completed XR shoulder LT min 2V* [id number] Stat Exams 09/05/22 18:32 Completed US echo complete [CV. echo complete* [id number]] Routine Ultrasound 09/05/22 22:02 Completed Pending at discharge Category Date Time Status Osmolality Serum Routine Lab 09/05/22 18:33 Received Osmolality Urine Routine Lab 09/05/22 23:52 Received Radiology Impressions Chest X-Ray 09/05/22 17:52 IMPRESSION: Unchanged hyperinflation of lungs and upper lung zone emphysema. No confluent infiltrates in the lungs. Shoulder X-Ray 09/05/22 18:32 IMPRESSION: Osseous irregularity and curvilinear lucency seen at the left superolateral aspect of the humeral head, suggestive of a minimally displaced fracture of the greater tuberosity. Further evaluation may be performed with CT. Shoulder CT 09/05/22 19:10 IMPRESSION: 1. Comminuted, minimally displaced left proximal humerus greater tuberosity region fracture, as noted above. No dislocation of the humeral head from the glenoid fossa. Generalized osteopenia. Degenerative changes, as noted above. 2. Acute minimally displaced left anterolateral 3rd through 5th rib fractures. 3. Left apical solid 0.7 x 0.6 cm nodule with irregular borders (series 4, image 152). Recommend follow-up per Fleischner society recommendations. Nonemergent chest CT may be performed for complete evaluation. 4. Moderate to severe centrilobular emphysema in the visualized left lung. Chest CTA 09/07/22 07:36 IMPRESSION: 1. No evidence of pulmonary embolus. 2. No acute pulmonary infiltrates. 3. Stable spiculated lesion LEFT upper lobe measuring 6 mm. Laboratory Results WBC 4.1 10^3/uL (4.0-10.0) 09/07/22 04:28 RBC 4.00 10^6/uL (4.1-5.3) L 09/07/22 04:28 Hgb 11.9 g/dL (11.5-15.3) 09/07/22 04:28 Hct 36.1 % (37.0-47.0) L 09/07/22 04:28 MCV 90.3 fl (81-99) 09/07/22 04:28 MCH 29.8 pg (28.0-34.0) 09/07/22 04:28 MCHC 33.0 g/dL (30.0-36.0) 09/07/22 04:28 RDW 12.3 % (12.1-15.1) 09/07/22 04:28 Plt Count 242 10^3/cmm (130-400) 09/07/22 04:28 MPV 9.4 fL (7.4-10.4) 09/07/22 04:28 Neut % (Auto) 53.3 % 09/07/22 04:28 Lymph % (Auto) 32.4 % 09/07/22 04:28 [place] % (Auto) 12.7 % 09/07/22 04:28 Eos % (Auto) 0.7 % 09/07/22 04:28 Baso % (Auto) 0.7 % 09/07/22 04:28 Neut # (Auto) 2.19 10^3/uL (1.8-7.7) 09/07/22 04:28 Lymph # (Auto) 1.3 10^3/uL (0.8-4.8) 09/07/22 04:28 [place] # (Auto) 0.5 10^3/uL (0.2-0.9) 09/07/22 04:28 Eos # (Auto) 0.0 10^3/uL (0.0-0.8) 09/07/22 04:28 Baso # (Auto) 0.0 10^3/uL (0.0-0.1) 09/07/22 04: Nucleated RBC % (auto) 0 % 09/07/22 04: Nucleated RBCs # 0.0 /100WBC 09/07/22 04: PT 12.50 SECONDS (12.1-14.9) 09/05/22 18:33 INR 0.91 (0.8-1.2) 09/05/22 18:33 D-Dimer 1.26 ug/mIFEU (0-0.59) H 09/07/22 04:28 Sodium 133 mmol/L (136-145) L 09/07/22 04:28 Potassium 4.4 mmol/L (3.5-5.1) 09/07/22 04:28 Chloride 99 mmol/L (98-107) 09/07/22 04:28 Carbon Dioxide 26 mmol/L (22-29) 09/07/22 04:28 Anion Gap 12.4 (5-19) 09/07/22 04:28 BUN 16 mg/dL (8-23) 09/07/22 04:28 Creatinine 1.0 mg/dL (0.5-0.9) H 09/07/22 04:28 GFR Calculation Not Reportable 09/07/22 04:28 Glucose 113 mg/dL (65-115) 09/07/22 04:28 POC Glucose 119 mg/dL (70-110) H 09/05/22 21:46 Calculated Osmolality 278 mOsm/kg (285-295) L 09/07/22 04:28 Calcium 9.1 mg/dL (8.5-10.5) 09/07/22 04:28 Magnesium 1.5 mg/dL (1.7-2.3) L 09/06/22 01:04 Total Bilirubin 0.2 mg/dL (0.15-1.2) 09/06/22 01:04 AST 13 U/L (0-32) 09/06/22 01:04 ALT 10 U/L (0-33) 09/06/22 01:04 Alkaline Phosphatase 103 U/L (35-105) 09/06/22 01:04 Ammonia 25 umol/L (11-51) 09/05/22 18:33 NT-Pro-B Natriuret Pep 246 pg/mL (0-450) 09/05/22 18:33 Total Protein 5.9 g/dL (6.6-8.7) L 09/06/22 01:04 Albumin 3.6 g/dL (3.5-5.2) 09/06/22 01:04 Globulin 2.3 g/dL (1.3-4.6) 09/06/22 01:04 Vitamin B12 328 pg/mL (232-1245) 09/06/22 01:04 Procalcitonin 0.07 ng/mL (0-0.5) 09/05/22 18:33 Urine Color Dark yellow (Yellow) 09/05/22 19:11 Urine Appearance Clear (CLEAR) 09/05/22 19:11 Urine pH 5 (5-7) 09/05/22 19:11 Ur Specific [place] 1.025 (1.005-1.030) 09/05/22 19:11 Urine Protein Neg (Negative) 09/05/22 19:11 Urine Glucose (UA) Norm (Normal) 09/05/22 19:11 Urine Ketones Negative (Negative) 09/05/22 19:11 Urine Blood Neg (Negative) 09/05/22 19:11 Urine Nitrate Negative (Negative) 09/05/22 19:11 Urine Bilirubin Neg (Negative) 09/05/22 19:11 Urine Urobilinogen Norm mg/dL (Negative) 09/05/22 19:11 Ur Leukocyte Esterase 1+ (Negative) H 09/05/22 19:11 Urine RBC 0-4 /hpf (0-2) H 09/05/22 19:11 Urine WBC 0-4 /hpf (0-5) H 09/05/22 19:11 Ur Squamous Epith Cells 5-10 /hpf (0-5) H 09/05/22 19:11 Amorphous Sediment Not Reportable 09/05/22 19:11 Urine Bacteria Trace /hpf (NONE) 09/05/22 19:11 Hyaline Casts 5-10 /lpf H 09/05/22 19:11 Ur Random Sodium 42 mmol/L 09/05/22 23:52 Urine Opiates Screen Negative ng/mL (Negative) 09/05/22 19:11 Ur Barbiturates Screen Negative ng/mL (Negative) 09/05/22 19:11 Ur Phencyclidine Scrn Negative ng/mL (Negative) 09/05/22 19:11 Ur Amphetamines Screen Negative ng/mL (Negative) 09/05/22 19:11 U Benzodiazepines Scrn Negative ng/mL (Negative) 09/05/22 19:11 Urine Cocaine Screen Negative ng/mL (Negative) 09/05/22 19:11 U Marijuana (THC) Screen Positive ng/mL (Negative) H 09/05/22 19:11 Vitals Last Vital Signs Temp 97.4 F L 09/07/22 07:49 Pulse 87 09/07/22 07:49 Resp 18 09/07/22 07:49 BP 165/82 09/07/22 07:49 Pulse Ox 96 09/07/22 07:49 O2 Del Method Room Air 09/07/22 07:43 O2 Flow Rate 7 09/06/22 20:00 Discharge Plan Discharge Patient Disposition: Home Condition: Stable Prescriptions: New oxycodone-acetaminophen 5-325 mg tablet 1 tab PO Q8H PRN (Reason: pain) Qty: 14 0RF lidocaine 5 % adhesive patch,medicated 1 patch topical DAILY Qty: 15 0RF Rx Instructions: 1 patch topically daily; sennosides-docusate sodium [Senna-S] 8.6-50 mg tablet 1 tab-cap PO DAILY Qty: 10 0RF Continued cholecalciferol (vitamin D3) 50 mcg (2,000 unit) capsule 50 mcg PO DAILY atorvastatin [Lipitor] 80 mg tablet 80 mg PO DAILY Breztri Aerosphere 160-9-4.8 mcg/actuation HFA aerosol inhaler 2 inh inhalation BID 30 Days Qty: 10.7 6RF docusate sodium [Colace] 100 mg capsule 100 mg PO BID PRN (Reason: Constipation) ropinirole 2 mg tablet 2 mg PO BEDTIME carbamazepine 200 mg tablet 200 mg PO BID Qty: 60 3RF (DME) diabetic shoes with 3 pairs inserts See Rx Instructions .Route .MEDSUPPLY Qty: 1 0RF Rx Instructions: As directed HOME Ingrezza 80 mg capsule 80 mg PO DAILY Qty: 30 2RF hydroxychloroquine 200 mg tablet 200 mg PO BID Qty: 60 0RF Rx Instructions: rx filled 06/30/22 30d/s albuterol sulfate [Ventolin HFA] 90 mcg/actuation HFA aerosol inhaler 2 puff inhalation QID PRN (Reason: Shortness Of Breath) fenofibrate 54 mg tablet 54 mg PO DAILY levothyroxine 100 mcg tablet 100 mcg PO DAILY metformin 1,000 mg tablet 1,000 mg PO BID Nitrostat 0.4 mg Tablet, Sublingual 0.4 mg SUBLINGUAL Q5M PRN (Reason: Chest Pain) Rx Instructions: do not exceed 3 doses per episode oxybutynin chloride 10 mg tablet extended release 24hr 20 mg PO DAILY clopidogrel 75 mg tablet 75 mg PO DAILY gabapentin 800 mg tablet 800 mg PO TID Cymbalta 60 mg capsule,delayed release(DR/EC) 60 mg PO DAILY promethazine 12.5 mg tablet 12.5 mg PO QID PRN (Reason: Nausea And Vomiting) losartan 100 mg tablet 100 mg PO DAILY Qty: 30 0RF hydrochlorothiazide 25 mg tablet 25 mg PO DAILY Qty: 30 0RF amlodipine 10 mg tablet 10 mg PO DAILY Qty: 30 0RF Held torsemide 5 mg tablet 5 mg PO DAILY Hold Instructions: Resume on 09/14/22. potassium chloride 10 mEq tablet extended release 10 meq PO DAILY Hold Instructions: Resume on 09/14/22. Discontinued meloxicam 7.5 mg tablet 7.5 mg PO DAILY baclofen 10 mg tablet 10 mg PO Q8H PRN (Reason: muscle spasm/pain) Qty: 10 0RF metoprolol succinate 50 mg tablet extended release 24 hr 75 mg PO DAILY Discharge Orders: Discharge Order (Routine); Ordered 09/07/22 Ordered By: Jose F Leon Other Ambulatory Orders: DME: Miscellaneous (Order) Location: None Selected Ordered By: Fariha Chowdary Referrals: [facility] [Other] (Please call [facility] transport at for medicaid ride to your phyisician appointment. ) Brett Guallpa MD [Primary Care Provider] - 2 weeks Discharge Diet: Cardiac Discharge Activity: Increase activity as tolerated and Use walker/crutches as instructed Patient Instructions: Opioid Safety Discharge Attestations Time Spent in Discharge Care*: greater than 30 min Quality Metrics Clinical Quality Measures [ No reported AMI, CVA or VTE this stay] Coding Level of Care Code Acute Code for Chg Fwd Diagnoses Closed left humeral fracture S42.252A Encounter type: initial encounter Fracture alignment: displaced Humerus Location: greater tuberosity
[2022-09-07 16:50] LABS: Osmolality Urine 321 mOsm/kg (50-1200)
[2022-09-07 16:50] LABS: Osmolality Serum 283 mOsm/kg (278-305)
== END 2022-09-07 12:05 | disposition home health service (06) | DRG 563 ==
LOC: ER 20:43 → MEDSURG 21:06
PROVIDERS: Emergency Medicine; Admitting Provider Internal Medicine; Emergency Provider Emergency Medicine; PCP Family Medicine; Visit Provider Internal Medicine
DX: S42.252A Displaced fracture of greater tuberosity of left humerus, initial encounter for closed fracture (principal); S22.42XA Multiple fractures of ribs, left side, initial encounter for closed fracture; N17.9 Acute kidney failure, unspecified; E87.1 Hypo-osmolality and hyponatremia; W18.30XA Fall on same level, unspecified, initial encounter; G20 Parkinson's disease; R91.1 Solitary pulmonary nodule; I44.0 Atrioventricular block, first degree; Z79.51 Long term (current) use of inhaled steroids; Z79.84 Long term (current) use of oral hypoglycemic drugs; Z79.02 Long term (current) use of antithrombotics/antiplatelets; F31.73 Bipolar disorder, in partial remission, most recent episode manic; E11.22 Type 2 diabetes mellitus with diabetic chronic kidney disease; I12.9 Hypertensive chronic kidney disease with stage 1 through stage 4 chronic kidney disease, or unspecified chronic kidney disease; N18.9 Chronic kidney disease, unspecified; J43.2 Centrilobular emphysema; I25.10 Atherosclerotic heart disease of native coronary artery without angina pectoris; Z95.5 Presence of coronary angioplasty implant and graft; E03.9 Hypothyroidism, unspecified; E78.5 Hyperlipidemia, unspecified; E86.0 Dehydration; G24.01 Drug induced subacute dyskinesia; Z87.891 Personal history of nicotine dependence; F12.10 Cannabis abuse, uncomplicated; F10.11 Alcohol abuse, in remission; E87.5 Hyperkalemia; M32.9 Systemic lupus erythematosus, unspecified
CPT/HCPCS: 36415; 36416; 71045; 71275; 73030; 73200; 80048; 80053; 80306; 81001; 82140; 82607; 82962; 83735; 83880; 83930; 83935; 84145; 84300; 85025; 85378; 85610; 93005; 93306; 94640; 96361; 96372; 96374; 96375; 97110; 97116; 97161; 97166; 99285; J0612; J1644; J1815; J2270; J2405; J7030; L3670; Q9967

== ENCOUNTER 2022-09-23 14:15 | Emergency (ER) | payer MEDICARE, MEDICAID, SELFPAY ==
[2022-09-23 14:55] VITALS: BP 128/70; PULSE 79; RESP 16; TEMP 36.8; O2SAT 95
[2022-09-23 15:00] VITALS: BP 133/85; PULSE 89; RESP 16; TEMP 36.7; O2SAT 100
--- NOTE | 2022-09-23 15:40 | XRR_ITS ---
PROCEDURE INFORMATION: Exam: XR Right Elbow Exam date and time: 09/23/2022 3:46 PM Age: 76 years old Clinical indication: Injury or trauma; Fall; Blunt trauma (contusions or hematomas); Elbow; Right; Additional info: Pain TECHNIQUE: Imaging protocol: Radiologic exam of the right elbow. Views: 3 or more views. COMPARISON: No relevant prior studies available. FINDINGS: Bones/joints: Osseous structures are intact. Negative for fracture. Soft tissues: Normal. XR/XR elbow RT min 3V* [id number] IMPRESSION: No acute findings.
--- NOTE | 2022-09-23 15:42 | W.ED.EXTPRO ---
HPI - Extremity Problem General: Chief complaint: Abdominal Pain Stated complaint: RIGHT ELBOW PAIN Time Seen by Provider: 09/23/22 15:32 Source: patient Mode of arrival: ambulatory History of Present Illness: 76-year-old female presents emergency room complaining of right elbow pain she had fallen last week and had a left proximal humerus fracture she is in a shoulder immobilizer. Today she felt get dizzy she is always from her pain medications and she fell and landed on her right elbow she has a little bit of bruising there she has been able to move it is normal sensation. Patient arrived by EMS. MD Complaint: joint pain Onset (ago): minute(s) Location: left and elbow Quality: sharp Relieving factors: nothing Exacerbating factors: nothing Associated symptoms: Deny chest pain or rash Review of Systems Card: Denies: chest pain Resp: Denies: dyspnea GI: Denies: abdominal pain, nausea or vomiting Skin/Breast: Denies: rash or pruritus PFSH ED PFSH: Medical History Acute hyperkalemia Acute hyponatremia Acute renal insufficiency Alcohol use disorder in remission Amphetamine use disorder, moderate, in sustained remission Bipolar disorder, in partial remission, most recent episode manic Cannabis use disorder, mild, in sustained remission, abuse Cervicalgia Chronic kidney disease (CKD) Chronic obstructive pulmonary disease Closed left humeral fracture Coronary artery disease Patient with stents Diabetes mellitus Hyperlipidemia Hypertension Hypothyroidism Incidental pulmonary nodule, > 3mm and < 8mm Left rib fracture Lupus Major depressive disorder, recurrent, in partial remission Orofacial dyskinesia Psychiatric care Tardive dyskinesia Tobacco use disorder, mild, in sustained remission Surgical History History of back surgery (01/17/13) History of bilateral breast reduction surgery History of bilateral tubal ligation History of bladder surgery (~1989) Vaginal Urethral sling with possible anchors . [place]formed [place]. Salas [place] [facility] [place] History of cholecystectomy History of colonoscopy with polypectomy (~04/20/20) 2017 History of coronary angioplasty with insertion of stent 2006: 2 stents. 2008: 2 stents. History of dilation and curettage (~1982) History of hand surgery Repair right thumb fracture History of hemorrhoidectomy History of right cataract extraction History of vaginal hysterectomy Still has ovaries. Performed in [place], [place]. Performed due to bleeding. Family History Brother Heart disease Hypertension Hypercholesteremia Diabetes Sister Thyroid condition Denies family history of Colon cancer Ovarian cancer Clotting disorder Breast cancer Anesthesia complication Bleeding disorder Uterine cancer Stroke Social History Smoking and tobacco status: former smoker Smoking risk assessment/counseling performed?: No Counseling given: No Substance/Drug Use: never Counseling given: No Lives independently: Yes Household members: none Marital status: Current occupational status: disabled Do you think of yourself as: Straight/Heterosexual Current gender identity: Female Physical Exam Const: GENERAL APPEARANCE: cooperative and comfortable ORIENTATION/CONSCIOUSNESS: Yes awake, Yes oriented to person, Yes oriented to place and Yes oriented to time HENMT: COMMON NORMALS: normocephalic, atraumatic and hearing grossly normal bilaterally HEAD & SCALP: normocephalic and atraumatic Resp: COMMON NORMALS: normal respiratory effort, No retractions, No use of accessory muscles and clear to auscultation bilaterally AUSCULTATION: clear to auscultation bilaterally Cardio: COMMON NORMALS: regular rate, regular rhythm and No murmurs present (Cardio) RATE: regular rate RHYTHM: regular rhythm Extremity: COMMON NORMALS: normal to inspection, capillary refill normal, no clubbing, cyanosis or edema, no calf tenderness and no pedal edema OTHER: Right elbow is normal range of motion pronation and supination without pain some ecchymosis at the elbow no deformity Neuro: SENSORIUM/ORIENTATION: Yes oriented to person, Yes oriented to place and Yes oriented to time Skin: COMMON NORMALS: no rashes or lesions noted GENERAL SKIN EXAM: no rashes or lesions noted Course Vital Signs: Vital signs: Vital Signs Temperature 98.1 F 09/23/22 15:00 Pulse Rate 76 09/23/22 16:12 Respiratory Rate 16 09/23/22 16:12 Blood Pressure 144/69 09/23/22 16:12 Pulse Oximetry 96 09/23/22 16:12 Oxygen Delivery Me thod Room Air 09/23/22 15:00 MDM - Extremity (Nontraumatic) Medical Decision Making X-ray normal patient discharged home. No acute fractures on the right elbow. She is complaining some nausea occasionally which she relates from medications give her some Zofran to use as needed follow-up with primary care as needed with Ortho as previously directed Lab Data Radiology Impressions Elbow X-Ray 09/23/22 15:40 IMPRESSION: No acute findings. Discharge Plan Discharge Patient Disposition: Home Clinical Impression: Contusion of elbow, right, Fall Condition: Stable Prescriptions: New ondansetron HCl 4 mg tablet 4 mg PO Q6H PRN (Reason: nausea and vomiting) Qty: 10 0RF No Action cholecalciferol (vitamin D3) 50 mcg (2,000 unit) capsule 50 mcg PO DAILY atorvastatin [Lipitor] 80 mg tablet 80 mg PO DAILY Breztri Aerosphere 160-9-4.8 mcg/actuation HFA aerosol inhaler 2 inh inhalation BID 30 Days Qty: 10.7 6RF docusate sodium [Colace] 100 mg capsule 100 mg PO BID PRN (Reason: Constipation) ropinirole 2 mg tablet 2 mg PO BEDTIME torsemide 5 mg tablet 5 mg PO DAILY Hold Instructions: Resume on 09/14/22. carbamazepine 200 mg tablet 200 mg PO BID Qty: 60 3RF (DME) diabetic shoes with 3 pairs inserts See Rx Instructions .Route .MEDSUPPLY Qty: 1 0RF Rx Instructions: As directed HOME Ingrezza 80 mg capsule 80 mg PO DAILY Qty: 30 2RF hydroxychloroquine 200 mg tablet 200 mg PO BID Qty: 60 0RF Rx Instructions: rx filled 06/30/22 30d/s albuterol sulfate [Ventolin HFA] 90 mcg/actuation HFA aerosol inhaler 2 puff inhalation QID PRN (Reason: Shortness Of Breath) fenofibrate 54 mg tablet 54 mg PO DAILY potassium chloride 10 mEq tablet extended release 10 meq PO DAILY Hold Instructions: Resume on 09/14/22. levothyroxine 100 mcg tablet 100 mcg PO DAILY metformin 1,000 mg tablet 1,000 mg PO BID Nitrostat 0.4 mg Tablet, Sublingual 0.4 mg SUBLINGUAL Q5M PRN (Reason: Chest Pain) Rx Instructions: do not exceed 3 doses per episode oxybutynin chloride 10 mg tablet extended release 24hr 20 mg PO DAILY clopidogrel 75 mg tablet 75 mg PO DAILY gabapentin 800 mg tablet 800 mg PO TID Cymbalta 60 mg capsule,delayed release(DR/EC) 60 mg PO DAILY promethazine 12.5 mg tablet 12.5 mg PO QID PRN (Reason: Nausea And Vomiting) lidocaine 5 % adhesive patch,medicated 1 patch topical DAILY Qty: 15 0RF Rx Instructions: 1 patch topically daily; oxycodone-acetaminophen 5-325 mg tablet 1 tab PO Q8H PRN (Reason: pain) Qty: 14 0RF Senna-S 8.6-50 mg tablet 1 tab-cap PO DAILY Qty: 10 0RF amlodipine 10 mg tablet 10 mg PO DAILY Qty: 30 0RF hydrochlorothiazide 25 mg tablet 25 mg PO DAILY Qty: 30 0RF losartan 100 mg tablet 100 mg PO DAILY Qty: 30 0RF Discharge Orders: Discharge ED (Routine); Ordered 09/23/22 Ordered By: Jovanni Mast Referrals: Brett Guallpa MD [Primary Care Provider] - Discharge Diet: Usual diet Discharge Activity: Limit activity as instructed Patient Instructions: Opioid Safety, Pain Management Activity Restrictions/Additional Instructions: You were seen today after a fall where you complaining of right elbow pain your right elbow x-ray was normal. Follow-up with your primary care doctor as needed no orthopedics as previously advised. You also mentioned that the pain medications was not giving him nausea. You are given a prescription for ondansetron to use as needed to relieve the nausea. Coding Level of Care Code ED Oven Operator Automatic for Aicha Jean Baptiste
[2022-09-23] MEDS: ondansetron 2 mg/ML SDV 2 mL 4 MG IM (16:01)
[2022-09-23 16:12] VITALS: BP 144/69; PULSE 76; RESP 16; O2SAT 96
== END 2022-09-23 16:13 | disposition home or self-care (01) ==
PROVIDERS: Emergency Provider Family Medicine; PCP Family Medicine
DX: S50.01XA Contusion of right elbow, initial encounter (principal); Z79.84 Long term (current) use of oral hypoglycemic drugs; Z79.02 Long term (current) use of antithrombotics/antiplatelets; Z87.891 Personal history of nicotine dependence; Z95.5 Presence of coronary angioplasty implant and graft; E11.22 Type 2 diabetes mellitus with diabetic chronic kidney disease; I12.9 Hypertensive chronic kidney disease with stage 1 through stage 4 chronic kidney disease, or unspecified chronic kidney disease; N18.9 Chronic kidney disease, unspecified; J44.9 Chronic obstructive pulmonary disease, unspecified; I25.10 Atherosclerotic heart disease of native coronary artery without angina pectoris; E78.5 Hyperlipidemia, unspecified; M32.9 Systemic lupus erythematosus, unspecified; W19.XXXA Unspecified fall, initial encounter
CPT/HCPCS: 73080; 96372; 99284; J2405

== ENCOUNTER 2022-09-24 00:17 | Inpatient (IN) | payer MEDICARE, MEDICAID, SELFPAY ==
[2022-09-24] VITALS (95 sets, daily range): BP systolic 91–194; BP diastolic 49–124; PULSE 67–96; RESP 12–34; TEMP 36.7–37.4; O2SAT 88–99; BMI 29.9
--- NOTE | 2022-09-24 00:23 | XRR_ITS ---
PROCEDURE INFORMATION: Exam: XR Chest Exam date and time: 09/24/2022 12:36 AM Age: 76 years old Clinical indication: Other: Weakness TECHNIQUE: Imaging protocol: Radiologic exam of the chest. Views: 1 view. COMPARISON: CR XR chest 1V portable [id number] 09/05/2022 6:02 PM FINDINGS: Lungs: Unremarkable. No consolidation. Pleural spaces: Unremarkable. No pleural effusion. No pneumothorax. Heart/Mediastinum: Unremarkable. No cardiomegaly. Bones/joints: Unremarkable. XR/XR chest 1V portable [id number] IMPRESSION: No acute findings.
--- NOTE | 2022-09-24 00:32 | CTR_ITS ---
PROCEDURE INFORMATION: Exam: CT Head Without Contrast Exam date and time: 09/24/2022 12:53 AM Age: 76 years old Clinical indication: Injury or trauma; Fall; Blunt trauma (contusions or hematomas) TECHNIQUE: Imaging protocol: Computed tomography of the head without contrast. Radiation optimization: All CT scans at this facility use at least one of these dose optimization techniques: automated exposure control; mA and/or kV adjustment per patient size (includes targeted exams where dose is matched to clinical indication); or iterative reconstruction. REPORTING DATA: Count of CT and Cardiac NM exams in prior 12 months: This patient has received 8 known CTs and 0 known cardiac nuclear medicine studies in the 12 months prior to the current study. COMPARISON: CT head wo con* [id number] 08/23/2022 2:26 PM RADIATION DOSE METRICS: Total DLP (mGy-cm): 1204.98 FINDINGS: Brain: There is mild cerebral atrophy. There is mild diffuse heterogeneity of the white matter attenuation, consistent with chronic white matter ischemic changes. Negative for intracranial hemorrhage. Negative for intracranial mass. Negative for midline shift of brain. Cerebral ventricles: No ventriculomegaly. Paranasal sinuses: Visualized sinuses are unremarkable. No fluid levels. Mastoid air cells: Visualized mastoid air cells are well aerated. Bones/joints: Unremarkable. No acute fracture. Soft tissues: Unremarkable. CT/CT head wo con* [id number] IMPRESSION: No acute intracranial abnormality.
[2022-09-24 00:39] LABS: Eosinophils % 0.3 %; Hematocrit 35.6 % (37.0-47.0); Hemoglobin 13.2 g/dL (11.5-15.3); Lymphocytes # 0.9 10^3/uL (0.8-4.8); Lymphocytes % 13.5 %; Mean Corpuscular HGB Conc 37.1 g/dL (30.0-36.0); Mean Corpuscular Hemoglobin 29.9 pg (28.0-34.0); Mean Corpuscular Volume 80.7 fl (81-99); Mean Platelet Volume 8.7 fL (7.4-10.4); Monocytes # 0.6 10^3/uL (0.2-0.9); Monocytes % 9.8 %; Neutrophils # 4.94 10^3/uL (1.8-7.7); Neutrophils % 76.1 %; Nucleated Red Blood Cells % 0 %; Platelet Count 314 10^3/cmm (130-400); Red Blood Count 4.41 10^6/uL (4.1-5.3); Red Cell Distribution Width 11.4 % (12.1-15.1); White Blood Count 6.5 10^3/uL (4.0-10.0)
[2022-09-24 00:42] LABS: INR 0.96 (0.8-1.2)
--- NOTE | 2022-09-24 00:42 | ED_ITS ---
HPI - Weakness General: Chief complaint: Weakness Stated complaint: weakness N/V Time Seen by Provider: 09/24/22 00:20 Source: patient and EMS Mode of arrival: EMS Limitations: no limitations History of Present Illness: 76-year-old female who had a fall earlier today states that since she has been home she has had increased nausea vomiting and severe weakness she states she is having a hard time standing due to her weakness. She states that she is not really able to ambulate. He had multiple episodes of vomiting. She denies any worsening improving factors. Associated symptoms: Reports nausea and vomiting; Denies chest pain, chills, dysuria, fever(s) or headache(s) Review of Systems Const: Reports: fatigue and malaise; Denies: fever(s), chills or body aches Eyes: Denies: blurry vision or eye discomfort ENMT: Denies: throat pain or dental pain Card: Denies: chest pain Resp: Denies: dyspnea GI: Reports: nausea and vomiting; Denies: abdominal pain or diarrhea : Denies: dysuria Musc: Denies: neck pain or back pain Skin/Breast: Denies: rash Neuro: Denies: headache(s) PFSH ED PFSH: Medical History Acute hyperkalemia Acute hyponatremia Acute renal insufficiency Alcohol use disorder in remission Amphetamine use disorder, moderate, in sustained remission Bipolar disorder, in partial remission, most recent episode manic Cannabis use disorder, mild, in sustained remission, abuse Cervicalgia Chronic kidney disease (CKD) Chronic obstructive pulmonary disease Closed left humeral fracture Coronary artery disease Patient with stents Diabetes mellitus Hyperlipidemia Hypertension Hypothyroidism Incidental pulmonary nodule, > 3mm and < 8mm Left rib fracture Lupus Major depressive disorder, recurrent, in partial remission Orofacial dyskinesia Psychiatric care Tardive dyskinesia Tobacco use disorder, mild, in sustained remission Surgical History History of back surgery (01/17/13) History of bilateral breast reduction surgery History of bilateral tubal ligation History of bladder surgery (~1989) Vaginal Urethral sling with possible anchors . Performed by Dr. Salas at [facility] [place]. History of cholecystectomy History of colonoscopy with polypectomy (~04/20/20) 2017 History of coronary angioplasty with insertion of stent 2006: 2 stents. 2008: 2 stents. History of dilation and curettage (~1982) History of hand surgery Repair right thumb fracture History of hemorrhoidectomy History of right cataract extraction History of vaginal hysterectomy Still has ovaries. Performed in [place], [place]. Performed due to bleeding. Family History Brother Heart disease Hypertension Hypercholesteremia Diabetes Sister Thyroid condition Denies family history of Colon cancer Ovarian cancer Clotting disorder Breast cancer Anesthesia complication Bleeding disorder Uterine cancer Stroke Social History Smoking and tobacco status: former smoker Smoking risk assessment/counseling performed?: No Counseling given: No Substance/Drug Use: never Counseling given: No Lives independently: Yes Household members: none Marital status: Current occupational status: disabled Do you think of yourself as: Straight/Heterosexual Current gender identity: Female Physical Exam Const: COMMON NORMALS: patient oriented x3 HENMT: COMMON NORMALS: normocephalic and atraumatic HEAD & SCALP: normocephalic and atraumatic Eye: COMMON NORMALS: Equal, round and reactive pupils present and EOMs intact bilaterally PUPIL: Yes Equal, round and reactive pupils present Neck/C-Spine: COMMON NORMALS: full ROM and supple Chest: COMMONS NORMALS: normal inspection of the chest and normal palpation of entire chest wall Resp: COMMON NORMALS: normal respiratory effort, No retractions, No use of accessory muscles and clear to auscultation bilaterally AUSCULTATION: clear to auscultation bilaterally Cardio: COMMON NORMALS: regular rate, regular rhythm and No murmurs present (Cardio) RATE: regular rate RHYTHM: regular rhythm GI: COMMON NORMALS: Normal to inspection, nondistended, normoactive bowel sounds present, Soft to palpation, non-tender and no masses PALPATION: Yes Soft to palpation Extremity: COMMON NORMALS: normal to inspection and full ROM Neuro: COMMON NORMALS: patient oriented x3, moves all extremities and no focal motor deficits Psych: COMMON NORMALS: mental status grossly normal, Normal thought process present and cooperative THOUGHT PROCESS: Normal thought process present Skin: COMMON NORMALS: no rashes or lesions noted and no wounds GENERAL SKIN EXAM: no rashes or lesions noted Course Vital Signs: Vital signs: Vital Signs Temperature 98.5 F 09/24/22 00:18 Pulse Rate 85 09/24/22 00:18 Respiratory Rate 18 09/24/22 00:18 Blood Pressure 142/80 09/24/22 01:27 Pulse Oximetry 95 09/24/22 01:27 Oxygen Delivery Me thod Room Air 09/24/22 00:18 MDM - Weakness Medical Decision Making Patient presents here with nausea vomiting along with severe weakness she has had multiple falls today was seen earlier for a fall patient's head CT here is normal she does have severe hyponatremia her sodium here is 104 this is likely causing her weakness she is awake and alert she has had no seizures spoke to the hospitalist will admit the ICU. Medical Records I reviewed the patient's medical records. Lab Data I reviewed the patient's lab results. 09/24/22 00:26 09/24/22 01:07 Radiology Impressions Chest X-Ray 09/24/22 00:23 IMPRESSION: No acute findings. Head CT 09/24/22 00:32 IMPRESSION: No acute intracranial abnormality. Pelvis X-Ray 09/24/22 00:43 IMPRESSION: Negative for acute fracture. Laboratory Results WBC 6.5 10^3/uL (4.0-10.0) 09/24/22 00:26 RBC 4.41 10^6/uL (4.1-5.3) 09/24/22 00:26 Hgb 13.2 g/dL (11.5-15.3) 09/24/22 00:26 Hct 35.6 % (37.0-47.0) L 09/24/22 00:26 MCV 80.7 fl (81-99) L 09/24/22 00:26 MCH 29.9 pg (28.0-34.0) 09/24/22 00:26 MCHC 37.1 g/dL (30.0-36.0) H 09/24/22 00:26 RDW 11.4 % (12.1-15.1) L 09/24/22 00:26 Plt Count 314 10^3/cmm (130-400) 09/24/22 00:26 MPV 8.7 fL (7.4-10.4) 09/24/22 00:26 Neut % (Auto) 76.1 % 09/24/22 00:26 Lymph % (Auto) 13.5 % 09/24/22 00:26 Ramsey % (Auto) 9.8 % 09/24/22 00:26 Eos % (Auto) 0.3 % 09/24/22 00:26 Baso % (Auto) 0.0 % 09/24/22 00:26 Neut # (Auto) 4.94 10^3/uL (1.8-7.7) 09/24/22 00:26 Lymph # (Auto) 0.9 10^3/uL (0.8-4.8) 09/24/22 00:26 Ramsey # (Auto) 0.6 10^3/uL (0.2-0.9) 09/24/22 00:26 Eos # (Auto) 0.0 10^3/uL (0.0-0.8) 09/24/22 00:26 Baso # (Auto) 0.0 10^3/uL (0.0-0.1) 09/24/22 00:26 Nucleated RBC % (auto) 0 % 09/24/22 00: Nucleated RBCs # 0.0 /100WBC 09/24/22 00:26 PT 13.10 SECONDS (12.1-14.9) 09/24/22 00:26 INR 0.96 (0.8-1.2) 09/24/22 00:26 Sodium 104 mmol/L (136-145) L* 09/24/22 01:07 Potassium 3.4 mmol/L (3.5-5.1) L 09/24/22 01:07 Chloride 71 mmol/L (98-107) L 09/24/22 01:07 Carbon Dioxide 21 mmol/L (22-29) L 09/24/22 01:07 Anion Gap 15.4 (5-19) 09/24/22 01:07 BUN 8 mg/dL (8-23) 09/24/22 01:07 Creatinine 0.6 mg/dL (0.5-0.9) 09/24/22 01:07 GFR Calculation Not Reportable 09/24/22 01:07 Glucose 110 mg/dL (65-115) 09/24/22 01:07 POC Glucose 134 mg/dL (70-110) H 09/24/22 01:35 Calculated Osmolality 217 mOsm/kg (285-295) L 09/24/22 01:07 Calcium 8.5 mg/dL (8.5-10.5) 09/24/22 01:07 Magnesium 1.1 mg/dL (1.7-2.3) L 09/24/22 00:26 Total Bilirubin 0.3 mg/dL (0.15-1.2) 09/24/22 00:26 AST 36 U/L (0-32) H 09/24/22 00:26 ALT 18 U/L (0-33) 09/24/22 00:26 Alkaline Phosphatase 111 U/L (35-105) H 09/24/22 00:26 Total Protein 7.0 g/dL (6.6-8.7) 09/24/22 00:26 Albumin 4.0 g/dL (3.5-5.2) 09/24/22 00:26 Globulin 3.0 g/dL (1.3-4.6) 09/24/22 00:26 TSH 1.51 uIU/mL (0.27-4.20) 09/24/22 00:26 Urine Color Yellow (Yellow) 09/24/22 01:26 Urine Appearance Clear (CLEAR) 09/24/22 01:26 Urine pH 6 (5-7) 09/24/22 01:26 Ur Specific Oden 1.015 (1.005-1.030) 09/24/22 01:26 Urine Protein Neg (Negative) 09/24/22 01:26 Urine Glucose (UA) Norm (Normal) 09/24/22 01:26 Urine Ketones Negative (Negative) 09/24/22 01:26 Urine Blood Neg (Negative) 09/24/22 01:26 Urine Nitrate Negative (Negative) 09/24/22 01:26 Urine Bilirubin Neg (Negative) 09/24/22 01:26 Urine Urobilinogen Norm mg/dL (Negative) 09/24/22 01:26 Ur Leukocyte Esterase Negative (Negative) 09/24/22 01:26 EKG Data EKG 1: I personally reviewed and interpreted this EKG as follows: EKG interpretation date: 09/24/22 EKG interpretation time: 00:26 Interpretation: nsr hr 88 no sto r t wave abnormalities qrs 101 qtc 339 Critical Care Time Critical Care Time: Critical Care Time: Yes Total Critical Care Time: 40 Attestation: The high probability of a clinically significant, sudden or life threatening deterioration of the patient's endocrine system(s) required my full and direct attention, intervention and personal management. The critical care time is as shown. This time is in addition to time spent performing any reported procedures but includes the following: [x] Data and vital sign review and interpretation [x] Patient assessment, examination and intervention [x] Documentation [x] Medication orders and management Discharge Plan Discharge Patient Disposition: Admitted As Inpatient Clinical Impression: Acute hyponatremia, Weakness Condition: Stable Prescriptions: No Action cholecalciferol (vitamin D3) 50 mcg (2,000 unit) capsule 50 mcg PO DAILY atorvastatin [Lipitor] 80 mg tablet 80 mg PO DAILY Breztri Aerosphere 160-9-4.8 mcg/actuation HFA aerosol inhaler 2 inh inhalation BID 30 Days Qty: 10.7 6RF docusate sodium [Colace] 100 mg capsule 100 mg PO BID PRN (Reason: Constipation) ropinirole 2 mg tablet 2 mg PO BEDTIME torsemide 5 mg tablet 5 mg PO DAILY Hold Instructions: Resume on 09/14/22. carbamazepine 200 mg tablet 200 mg PO BID Qty: 60 3RF (DME) diabetic shoes with 3 pairs inserts See Rx Instructions .Route .MEDSUPPLY Qty: 1 0RF Rx Instructions: As directed HOME Ingrezza 80 mg capsule 80 mg PO DAILY Qty: 30 2RF hydroxychloroquine 200 mg tablet 200 mg PO BID Qty: 60 0RF Rx Instructions: rx filled 06/30/22 30d/s albuterol sulfate [Ventolin HFA] 90 mcg/actuation HFA aerosol inhaler 2 puff inhalation QID PRN (Reason: Shortness Of Breath) fenofibrate 54 mg tablet 54 mg PO DAILY potassium chloride 10 mEq tablet extended release 10 meq PO DAILY Hold Instructions: Resume on 09/14/22. levothyroxine 100 mcg tablet 100 mcg PO DAILY metformin 1,000 mg tablet 1,000 mg PO BID Nitrostat 0.4 mg Tablet, Sublingual 0.4 mg SUBLINGUAL Q5M PRN (Reason: Chest Pain) Rx Instructions: do not exceed 3 doses per episode oxybutynin chloride 10 mg tablet extended release 24hr 20 mg PO DAILY clopidogrel 75 mg tablet 75 mg PO DAILY gabapentin 800 mg tablet 800 mg PO TID Cymbalta 60 mg capsule,delayed release(DR/EC) 60 mg PO DAILY promethazine 12.5 mg tablet 12.5 mg PO QID PRN (Reason: Nausea And Vomiting) lidocaine 5 % adhesive patch,medicated 1 patch topical DAILY Qty: 15 0RF Rx Instructions: 1 patch topically daily; oxycodone-acetaminophen 5-325 mg tablet 1 tab PO Q8H PRN (Reason: pain) Qty: 14 0RF Senna-S 8.6-50 mg tablet 1 tab-cap PO DAILY Qty: 10 0RF amlodipine 10 mg tablet 10 mg PO DAILY Qty: 30 0RF hydrochlorothiazide 25 mg tablet 25 mg PO DAILY Qty: 30 0RF losartan 100 mg tablet 100 mg PO DAILY Qty: 30 0RF ondansetron HCl 4 mg tablet 4 mg PO Q6H PRN (Reason: nausea and vomiting) Qty: 10 0RF Referrals: Brett Guallpa MD [Primary Care Provider] - Coding Level of Care Code ED Diamond Driller for Aicha Jean Baptiste
--- NOTE | 2022-09-24 00:43 | XRR_ITS ---
PROCEDURE INFORMATION: Exam: XR Pelvis Exam date and time: 09/24/2022 1:00 AM Age: 76 years old Clinical indication: Injury or trauma; Fall; Crushing; Bilateral; Pelvic region; Pelvic area TECHNIQUE: Imaging protocol: Radiologic exam of the pelvis. Views: 1 or 2 view. COMPARISON: CR XR hip LT 2-3V wo/w pel* [id number] 08/23/2022 2:40 PM FINDINGS: Tubes, catheters and devices: Mesh coils across pelvis. Bones/joints: Lower lumbar spine surgical changes. Negative for acute pelvic fracture. Hip joints are aligned. Pelvic ring alignment is unremarkable. Soft tissues: Unremarkable. XR/XR pelvis 1-2V* [id number] IMPRESSION: Negative for acute fracture.
[2022-09-24] MEDS: sodium chloride 0.9% 1,000 ML 999 ML IV (00:49)
[2022-09-24] MEDS: ondansetron 2 mg/ML SDV 2 mL 4 MG IVP ×3 (00:49→20:06)
[2022-09-24 00:58] LABS: Alanine Aminotransferase 18 U/L (0-33); Alkaline Phosphatase 111 U/L (35-105); Anion Gap 17.7 (5-19); Aspartate Amino Transferase 36 U/L (0-32); Blood Urea Nitrogen 8 mg/dL (8-23); Carbon Dioxide 21 mmol/L (22-29); Chloride 69 mmol/L (98-107); Creatinine Clr Calc Pharmacy 64.1311; Glucose 116 mg/dL (65-115); Magnesium 1.1 mg/dL (1.7-2.3); Osmolality Calculated 217 mOsm/kg (285-295); Potassium 3.7 mmol/L (3.5-5.1); Thyroid Stimulating Hormone 1.51 uIU/mL (0.27-4.20); Total Bilirubin 0.3 mg/dL (0.15-1.2)
[2022-09-24 01:00] LABS: Sodium 104 mmol/L (136-145)
[2022-09-24 01:30] LABS: Add Urine Microscopic? NO; Charge for UA Resulting for Rev
[2022-09-24 01:36] LABS: Urine Appearance Clear (CLEAR); Urine Color Yellow (Yellow); pH Urine 6 (5-7)
[2022-09-24 01:36] LABS: Blood Urea Nitrogen 8 mg/dL (8-23); Calcium 8.5 mg/dL (8.5-10.5); Carbon Dioxide 21 mmol/L (22-29); Chloride 71 mmol/L (98-107); Creatinine Clr Calc Pharmacy 64.1311; Glucose 110 mg/dL (65-115); Osmolality Calculated 217 mOsm/kg (285-295)
[2022-09-24 01:37] LABS: Bilirubin Urine Neg (Negative); Blood Urine Neg (Negative); Glucose Urine UA Norm (Normal); Ketones Urine Negative (Negative); Leukocyte Esterase Urine Negative (Negative); Nitrate Urine Negative (Negative); Protein Urine Neg (Negative); Specific Gravity, Urine 1.015 (1.005-1.030); Urobilinogen Urine Norm (Negative)
[2022-09-24 01:38] LABS: Glucose Point of Care 134 mg/dL (70-110)
[2022-09-24 01:39] LABS: Anion Gap 15.4 (5-19); Potassium 3.4 mmol/L (3.5-5.1)
[2022-09-24 01:42] LABS: Sodium 104 mmol/L (136-145)
--- NOTE | 2022-09-24 02:02 | P.HP_ITS ---
Providers/Chief Complaint Primary Care Provider: Brett Guallpa MD Chief Complaint: weakness N/V History of Present Illness Elyssa Daniels is a 76 year old female with history of bipolar disorder, chronic kidney disease, COPD, CAD status post PCI, diabetes mellitus, hyperlipidemia, hypertension, hypothyroidism, pulmonary nodules, depression, lupus, possible Parkinson's disease presented to the hospital today for having multiple falls in the last few weeks.? She states that she has been falling since several years ago however most recently has been falling more often.? She states she is never really felt blacked out however this time she remembers blacking out and falling to the ground.? Prior to falling she felt lightheaded and dizzy.? She usually uses a walker or a cane but this time was not using either when she fell.? She says she has also noticed that randomly she will collapse at times without any warning.? Lives with a friend at home.? Sees Dr. 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 This above piece of information was obtained from previous H&P done on 09/05/2022. I admitted the patient last time and patient herself verbally told me the above. Mention CTA chest rule out PE however high D-dimer was noted. She did have rib fractures on the left side third fourth fifth rib along with left-sided shoulder fracture for which Dr. Alexandre was consulted. She recommended outpatient conservative management. Continuation of occupational therapy. She did have a first-degree AV block. Drug screen was positive for marijuana. B12 level was normal as well. Orthostatics were negative. It was suspected that patient is suffering from polypharmacy. Torsemide and potassium supplementation was held for at least 1 week and baclofen was discontinued. Earlier today patient presented to the ER for right elbow pain. S today she stated that she felt dizzy and landed on her right elbow. She had a little bruising there but she was able to move it and had a normal sensation. Patient came in via EMS. Right elbow x-ray was done which was normal no acute fractures noted. She did complain of some nausea and was given Zofran. She was asked to follow-up with primary care doctor as needed and with Ortho as previously directed. She was discharged home safely. Tonight patient comes back to the ER and says that ever since she got home she has been having increased nausea vomiting and severe weakness. She has a hard time standing due to her weakness. She cannot ambulate at this time. She has vomited multiple times since she got home. Denies chest pain, shortness of breath, fever, headache, chills, dysuria, abdominal pain. On arrival 142/80, respirate 18, pulse 85, temperature 98.5, saturating 95% on room air. Sodium 104, potassium 3.4, chloride 91, bicarb 21, BUN 8, creatinine 0.6, glucose 110. Chest x-ray shows no acute findings, head CT shows no acute intracranial abnormality, pelvis x-ray negative for acute fracture. UA negative. TSH 1.51. Medications/Allergies Home Medications Medication Instructions Recorded Confirmed Last Taken Type atorvastatin 80 mg tablet (Lipitor) 80 mg PO DAILY 06/03/19 09/06/22 09/03/20 History cholecalciferol (vitamin D3) 50 50 mcg PO DAILY 03/26/20 09/06/22 09/03/20 History mcg (2,000 unit) capsule albuterol sulfate 90 mcg/actuation 2 puff inhalation QID PRN 09/03/20 09/06/22 Unknown History aerosol inhaler (Ventolin HFA) Shortness Of Breath fenofibrate 54 mg tablet 54 mg PO DAILY 09/03/20 09/06/22 09/03/20 History potassium chloride 10 mEq 10 meq PO DAILY 09/03/20 09/06/22 09/03/20 History tablet,extended release budesonide 160 mcg-glycopyr 9 2 inh inhalation BID 30 days #10.7 11/22/20 09/06/22 Unknown Rx mcg-formot 4.8 mcg/actuation HFA grams inhaler (Breztri Aerosphere) docusate sodium 100 mg capsule 100 mg PO BID PRN Constipation 03/14/21 09/06/22 Unknown History (Colace) ropinirole 2 mg tablet 2 mg PO BEDTIME 03/14/21 09/06/22 Unknown History torsemide 5 mg tablet 5 mg PO DAILY 03/14/21 09/06/22 Unknown History hydroxychloroquine 200 mg tablet 200 mg PO BID #60 tabs 08/01/21 09/06/22 Unknown Rx carbamazepine 200 mg tablet 200 mg PO BID #60 tabs 08/31/21 09/06/22 Unknown Rx diabetic shoes with 3 pairs inserts #1 ea 05/22/22 09/06/22 Unknown Rx valbenazine 80 mg capsule 80 mg PO DAILY #30 caps 08/03/22 09/06/22 Unknown Rx (Ingrezza) clopidogrel 75 mg tablet 75 mg PO DAILY 09/06/22 09/06/22 Unknown History duloxetine 60 mg capsule,delayed 60 mg PO DAILY 09/06/22 09/06/22 Unknown History release (Cymbalta) gabapentin 800 mg tablet 800 mg PO TID 09/06/22 09/06/22 Unknown History levothyroxine 100 mcg tablet 100 mcg PO DAILY 09/06/22 09/06/22 Unknown History metformin 1,000 mg tablet 1,000 mg PO BID 09/06/22 09/06/22 Unknown History nitroglycerin 0.4 mg sublingual 0.4 mg sublingual Q5M PRN Chest 09/06/22 09/06/22 Unknown History tablet (Nitrostat) Pain oxybutynin chloride 10 mg 20 mg PO DAILY Overactive bladder, 09/06/22 09/06/22 Unknown History tablet,extended release 24 hr incontinence promethazine 12.5 mg tablet 12.5 mg PO QID PRN Nausea And 09/06/22 09/06/22 Unknown History Vomiting amlodipine 10 mg tablet 10 mg PO DAILY #30 tabs 09/07/22 09/06/22 Unknown Rx hydrochlorothiazide 25 mg tablet 25 mg PO DAILY #30 tabs 09/07/22 09/06/22 09/03/20 Rx lidocaine 5 % topical patch 1 patch topical DAILY #15 ea 09/07/22 Unknown Rx losartan 100 mg tablet 100 mg PO DAILY #30 tabs 09/07/22 09/06/22 09/03/20 Rx oxycodone-acetaminophen 5 mg-325 1 tab PO Q8H PRN pain #14 tabs 09/07/22 Unknown Rx mg tablet sennosides 8.6 mg-docusate sodium 1 tab-cap PO DAILY #10 tabs 09/07/22 Unknown Rx 50 mg tablet (Senna-S) ondansetron HCl 4 mg tablet 4 mg PO Q6H PRN nausea and 09/23/22 Unknown Rx vomiting #10 tabs Allergies Allergy/AdvReac Type Severity Reaction Status Date / Time cephalexin [From Keflex] Allergy Mild ADR-Itching Verified 09/06/22 08:55 PFSH Acute PFSH: Medical History Acute hyperkalemia Acute hyponatremia Acute renal insufficiency Alcohol use disorder in remission Amphetamine use disorder, moderate, in sustained remission Bipolar disorder, in partial remission, most recent episode manic Cannabis use disorder, mild, in sustained remission, abuse Cervicalgia Chronic kidney disease (CKD) Chronic obstructive pulmonary disease Closed left humeral fracture Coronary artery disease Patient with stents Diabetes mellitus Hyperlipidemia Hypertension Hypothyroidism Incidental pulmonary nodule, > 3mm and < 8mm Left rib fracture Lupus Major depressive disorder, recurrent, in partial remission Orofacial dyskinesia Psychiatric care Tardive dyskinesia Tobacco use disorder, mild, in sustained remission Surgical History History of back surgery (01/17/13) History of bilateral breast reduction surgery History of bilateral tubal ligation History of bladder surgery (~1989) Vaginal Urethral sling with possible anchors . [place]formed [place]. Salas [place] [facility] [place] History of cholecystectomy History of colonoscopy with polypectomy (~04/20/20) 2017 History of coronary angioplasty with insertion of stent 2006: 2 stents. 2008: 2 stents. History of dilation and curettage (~1982) History of hand surgery Repair right thumb fracture History of hemorrhoidectomy History of right cataract extraction History of vaginal hysterectomy Still has ovaries. Performed in [place], [place]. Performed due to bleeding. Family History Brother Heart disease Hypertension Hypercholesteremia Diabetes Sister Thyroid condition Denies family history of Colon cancer Ovarian cancer Clotting disorder Breast cancer Anesthesia complication Bleeding disorder Uterine cancer Stroke Social History Smoking and tobacco status: former smoker Smoking risk assessment/counseling performed?: No Counseling given: No Substance/Drug Use: never Counseling given: No Lives independently: Yes Household members: none Marital status: Current occupational status: disabled Do you think of yourself as: Straight/Heterosexual Current gender identity: Female Vitals/I&O/Wt Last Vital Signs Temp 98.5 F 09/24/22 00:18 Pulse 85 09/24/22 00:18 Resp 18 09/24/22 00:18 BP 142/80 09/24/22 01:27 Pulse Ox 95 09/24/22 01:27 O2 Del Method Room Air 09/24/22 00:18 Weight last 48 hrs Weight 81.647 kg Physical Exam Narrative: General: Alert oriented x2, patient seen lying in bed.? Comfortable at this time.Confused HEENT: Normocephalic, atraumatic, EOMI, Cardio: Regular rate rhythm, normal S1-S2, Respiratory: Good bilateral air entry, no wheezes no rhonchi appreciated Extremities: no edema, no cyanosis Data 09/24/22 00:26 09/24/22 02:41 A&P Assessment and plan (1) Contusion of elbow, right: (2) Fall: (3) Acute hyponatremia: (4) Weakness: (5) Urinary Incontinence: Qualifiers: Urinary Incontinence type: mixed stress and urge incontinence Qualified Code(s): N39.46 - Mixed incontinence Plan #Severe hyponatremia, sodium 104 #Generalized weakness #Nausea vomiting secondary to above #History of multiple falls #3rd-5th rib fracture on left side from previous falls #Recent left shoulder nondisplaced fracture, following with Ortho as an outpatient #Hypokalemia #Lupus #Diabetes mellitus type 2 #Hypertension #Hyperlipidemia #CAD status post PCI #COPD #Parkinson's? ? Med rec to be completed in a.m. ? Continue amlodipine, atorvastatin, Plavix, duloxetine, hydroxychloroquine twice daily, levothyroxine, metoprolol, oxybutynin, prednisone ? Check orthostatic vitals ? Vitamin B12 level 328 on 09/06 2022 ? Cardiac echo on 09/05 2022 showed normal LV systolic function, wall thickness no regional wall motion abnormalities, EF 60%. ? TSH 1.51 at previous visit ? Monitor on telemetry to rule out occult arrhythmia.? Suggestion to consider Holter monitor at discharge ? Neurology follow-up.? There seems to be a history of tardive dyskinesia as well.? There could be possibility of falls due to Parkinson's?.? I do not see carbidopa-levodopa on her medication list.? Patient was placed on Abilify by Dr. Fung in the past.? Please discuss with her over the phone before making medication changes ? Continue to follow-up with Dr. Onofre as an outpatient for pulmonary nodules ? Continue normal saline 75 cc/h ? Check urine sodium, urine and serum osmolality. ? BMP every 4 hours.? Goal correction no greater than 6 to 8 mmol in 24 hours. ? DuoNeb every 6 hours -Consult nephrology. Admit to ICU at this time. Full code SCDs, heparin SQ twice daily. Attestations Medical Necessity Statement*: Greater than 2 midnight stay for management of hyponatremia in ICU. Coding Level of Care Code G0426 (50 min) TH Encounter Time (min): 55 Patient seen via Telehealth in the acute care setting (hospital or ED location) by agreement and consent of patient or patient retail wireless sales representative. Telehealth technology used during the visit includes video and audio. This patient encounter is appropriate and reasonable under the circumstances given the patient?s particular presentation at this time. The patient has been advised of the potential risks and limitations of this mode of treatment (including but not limited to the absence of in-person examination at this time) and has agreed to be treated by an off-site physician for this visit. If deemed clinically necessary from this telehealth visit, or if condition or consent for telehealth visit changes, an in-person visit will be arranged. For this encounter, total time for the origination of telehealth care on this date is as shown. Diagnoses Contusion of elbow, right S50.01XA Fall W19.XXXA Acute hyponatremia E87.1 Weakness R53.1 Urinary Incontinence N39.46 Urinary Incontinence type: mixed stress and urge incontinence
[2022-09-24] MEDS: albuterol 2.5 mg/3 mL Neb INHALATION (02:05)
[2022-09-24 03:05] LABS: Ammonia 21 umol/L (11-51)
[2022-09-24 03:06] LABS: Anion Gap 14.4 (5-19); Blood Urea Nitrogen 8 mg/dL (8-23); Calcium 8.2 mg/dL (8.5-10.5); Carbon Dioxide 22 mmol/L (22-29); Chloride 75 mmol/L (98-107); Creatinine Clr Calc Pharmacy 64.1311; Glucose 99 mg/dL (65-115); Osmolality Calculated 224 mOsm/kg (285-295); Potassium 3.4 mmol/L (3.5-5.1)
[2022-09-24 03:12] LABS: Sodium 108 mmol/L (136-145)
[2022-09-24] MEDS: magnesium sulfate premix 2 GM/50 ML PIGGYBACK IV (03:26)
[2022-09-24] MEDS: enoxaparin 40 mg/0.4 mL Syringe SUBCUT (03:26)
[2022-09-24 03:40] LABS: Urine Random Sodium 10 mmol/L
[2022-09-24] MEDS: sodium chloride 3% 500 ML 15 ML IV ×2 (04:22→20:45)
[2022-09-24] MEDS: levothyroxine 100 mcg Tablet PO (08:00)
[2022-09-24] MEDS: clopidogrel 75 mg Tablet PO (08:00)
[2022-09-24] MEDS: atorvastatin 40 mg Tablet PO (08:00)
[2022-09-24 09:01] LABS: Blood Urea Nitrogen 6 mg/dL (8-23); Calcium 8.1 mg/dL (8.5-10.5); Carbon Dioxide 22 mmol/L (22-29); Chloride 77 mmol/L (98-107); Glucose 114 mg/dL (65-115); Osmolality Calculated 226 mOsm/kg (285-295)
[2022-09-24 09:28] LABS: Anion Gap 13.4 (5-19); Potassium 3.4 mmol/L (3.5-5.1)
[2022-09-24 09:30] LABS: Sodium 109 mmol/L (136-145)
--- NOTE | 2022-09-24 10:03 | PC.PHAR ---
pt states she has homehealth with [facility] [phone] not open on sundays unable to get med list-metcalf cutter also not open on sundays to see what has been filled recently ext doesnt always pull up all meds that have been filled-medications entered are meds that ext shows has been filled recently and what was on previously entered med list
--- NOTE | 2022-09-24 10:33 | P.CONIM_ITS ---
Providers/Reason For Consult Consulting Physician/Specialty*: [facility]/Nephrology Reason for Consult*: Hyponatremia Attending Physician: Lincoln Gilbert Primary Care Provider: Brett Guallpa MD History of Present Illness History of Present Illness Elyssa Daniels is a 76 year old female 76-year-old female with past medical history of bipolar disorder chronic kidney disease COPD coronary artery disease diabetes hypertension hypothyroidism presented to the emergency department complaining of weakness and multiple falls. Patient also complains of dizziness. Patient was recently discharged from the hospital on 09/07/2022 , she was admitted at that time for a syncope,. She was thought to have polypharmacy and multiple medications were discontinued at that time including baclofen and, torsemide. Lab data is significant for sodium of 104 potassium 3.4 bicarb was 21 chest x- ray showed no acute findings. CT head was negative. Review of Systems Narrative: unable to obtain Medications/Allergies Home Medications Medication Instructions Recorded Confirmed Last Taken Type atorvastatin 80 mg tablet (Lipitor) 80 mg PO DAILY 06/03/19 09/24/22 09/03/20 History cholecalciferol (vitamin D3) 50 50 mcg PO DAILY 03/26/20 09/24/22 09/03/20 History mcg (2,000 unit) capsule albuterol sulfate 90 mcg/actuation 2 puff inhalation QID PRN 09/03/20 09/24/22 Unknown History aerosol inhaler (Ventolin HFA) Shortness Of Breath fenofibrate 54 mg tablet 54 mg PO DAILY 09/03/20 09/24/22 09/03/20 History potassium chloride 10 mEq 10 meq PO DAILY 09/03/20 09/24/22 09/03/20 History tablet,extended release budesonide 160 mcg-glycopyr 9 2 inh inhalation BID 30 days #10.7 11/22/20 09/24/22 Unknown Rx mcg-formot 4.8 mcg/actuation HFA grams inhaler (Breztri Aerosphere) docusate sodium 100 mg capsule 100 mg PO BID PRN Constipation 03/14/21 09/24/22 Unknown History (Colace) ropinirole 2 mg tablet 2 mg PO BEDTIME 03/14/21 09/24/22 Unknown History torsemide 5 mg tablet 5 mg PO DAILY 03/14/21 09/24/22 Unknown History hydroxychloroquine 200 mg tablet 200 mg PO BID #60 tabs 08/01/21 09/24/22 Unknown Rx carbamazepine 200 mg tablet 200 mg PO BID #60 tabs 08/31/21 09/24/22 Unknown Rx diabetic shoes with 3 pairs inserts #1 ea 05/22/22 09/24/22 Unknown Rx valbenazine 80 mg capsule 80 mg PO DAILY #30 caps 08/03/22 09/24/22 Unknown Rx (Ingrezza) clopidogrel 75 mg tablet 75 mg PO DAILY 09/06/22 09/24/22 Unknown History duloxetine 60 mg capsule,delayed 60 mg PO DAILY 09/06/22 09/24/22 Unknown History release (Cymbalta) gabapentin 800 mg tablet 800 mg PO TID 09/06/22 09/24/22 Unknown History levothyroxine 100 mcg tablet 100 mcg PO DAILY 09/06/22 09/24/22 Unknown History metformin 1,000 mg tablet 1,000 mg PO BID 09/06/22 09/24/22 Unknown History nitroglycerin 0.4 mg sublingual 0.4 mg sublingual Q5M PRN Chest 09/06/22 09/24/22 Unknown History tablet (Nitrostat) Pain oxybutynin chloride 10 mg 20 mg PO DAILY Overactive bladder, 09/06/22 09/24/22 Unknown History tablet,extended release 24 hr incontinence promethazine 12.5 mg tablet 12.5 mg PO QID PRN Nausea And 09/06/22 09/24/22 Unknown History Vomiting amlodipine 10 mg tablet 10 mg PO DAILY #30 tabs 09/07/22 09/24/22 Unknown Rx hydrochlorothiazide 25 mg tablet 25 mg PO DAILY #30 tabs 09/07/22 09/24/22 09/03/20 Rx losartan 100 mg tablet 100 mg PO DAILY #30 tabs 09/07/22 09/24/22 09/03/20 Rx oxycodone-acetaminophen 5 mg-325 1 tab PO Q8H PRN pain #14 tabs 09/07/22 09/24/22 Unknown Rx mg tablet sennosides 8.6 mg-docusate sodium 1 tab-cap PO DAILY #10 tabs 09/07/22 09/24/22 Unknown Rx 50 mg tablet (Senna-S) ondansetron HCl 4 mg tablet 4 mg PO Q6H PRN nausea and 09/23/22 09/24/22 Unknown Rx vomiting #10 tabs lidocaine 5 % topical patch 1 patch topical DAILY PRN Pain 09/24/22 09/24/22 Unknown History meloxicam 7.5 mg tablet 7.5 mg PO DAILY 09/24/22 09/24/22 Unknown History metoprolol succinate 50 mg 75 mg PO DAILY 09/24/22 09/24/22 Unknown History tablet,extended release 24 hr Allergies Allergy/AdvReac Type Severity Reaction Status Date / Time cephalexin [From Keflex] Allergy Mild ADR-Itching Verified 09/06/22 08:55 Current Medications Generic Name Dose Route Start Last Admin Trade Name Freq PRN Reason Stop Dose Admin Atorvastatin Calcium 40 mg 09/24/22 09:00 09/24/22 08:00 Atorvastatin 40 Mg Tablet PO 40 mg DAILY ANNIA Administration Clopidogrel Bisulfate 75 mg 09/24/22 09:00 09/24/22 08:00 Clopidogrel 75 Mg Tablet PO 75 mg DAILY ANNIA Administration Enoxaparin Sodium 40 mg 09/24/22 02:38 09/24/22 03:26 Enoxaparin 40 Mg/0.4 Ml Syringe SUBCUT 40 mg Q24H ANNIA Administration Sodium Chloride 500 mls @ 15 mls/hr 09/24/22 04:00 09/24/22 04:22 Sodium Chloride 3% IV 15 mls/hr .Q24H ANNIA Administration Levothyroxine Sodium 100 mcg 09/24/22 09:00 09/24/22 08:00 Levothyroxine 100 Mcg Tablet PO 100 mcg DAILY ANNIA Administration Ondansetron HCl 4 mg 09/24/22 02:38 09/24/22 07:21 Ondansetron 2 Mg/Ml Sdv 2 Ml IVP 4 mg Q6H PRN Administration NAUSEA AND VOMITING PFSH Acute PFSH: Medical History Acute hyperkalemia Acute hyponatremia Acute renal insufficiency Alcohol use disorder in remission Amphetamine use disorder, moderate, in sustained remission Bipolar disorder, in partial remission, most recent episode manic Cannabis use disorder, mild, in sustained remission, abuse Cervicalgia Chronic kidney disease (CKD) Chronic obstructive pulmonary disease Closed left humeral fracture Coronary artery disease Patient with stents Diabetes mellitus Hyperlipidemia Hypertension Hypothyroidism Incidental pulmonary nodule, > 3mm and < 8mm Left rib fracture Lupus Major depressive disorder, recurrent, in partial remission Orofacial dyskinesia Psychiatric care Tardive dyskinesia Tobacco use disorder, mild, in sustained remission Surgical History History of back surgery (01/17/13) History of bilateral breast reduction surgery History of bilateral tubal ligation History of bladder surgery (~1989) Vaginal Urethral sling with possible anchors . [place] [facility] [place] History of cholecystectomy History of colonoscopy with polypectomy (~04/20/20) 2017 History of coronary angioplasty with insertion of stent 2006: 2 stents. 2008: 2 stents. History of dilation and curettage (~1982) History of hand surgery Repair right thumb fracture History of hemorrhoidectomy History of right cataract extraction History of vaginal hysterectomy Still has ovaries. Performed in [place], [place]. Performed due to bleeding. Family History Brother Heart disease Hypertension Hypercholesteremia Diabetes Sister Thyroid condition Denies family history of Colon cancer Ovarian cancer Clotting disorder Breast cancer Anesthesia complication Bleeding disorder Uterine cancer Stroke Social History Smoking and tobacco status: former smoker Smoking risk assessment/counseling performed?: No Counseling given: No Substance/Drug Use: never Counseling given: No Lives independently: Yes Household members: none Marital status: Current occupational status: disabled Do you think of yourself as: Straight/Heterosexual Current gender identity: Female Vitals/I&O/Wt Last Vital Signs Temp 99.3 F 09/24/22 02:31 Pulse 69 09/24/22 08:45 Resp 17 09/24/22 08:45 BP 133/59 09/24/22 08:45 Pulse Ox 93 09/24/22 08:45 O2 Del Method Room Air 09/24/22 02:40 09/23/22 09/24/22 09/24/22 22:59 06:59 14:59 Intake Total 1050 / 1050 420 / 420 Output Total 1850 / 1850 Balance -800 / -800 420 / 420 Weight last 48 hrs Weight 80.331 kg Weight 81.647 kg Physical Exam Narrative: sleeping , arousable s1s RRR no edema Urinary Catheter Management: Smyth: Cath Placed During This Visit: yes Reason for Continuing Indwelling Catheter: Accurate Measurement of Urinary Output in Critically Ill Patients Urinary Catheter Date of Insertion: 09/24/22 Urinary Catheter Time of Insertion: 03:17 Data 09/24/22 00:26 09/24/22 11:58 A&P Assessment and plan (1) Acute hyponatremia: Plan 1. Hyponatremia: Likely multifactorial with SSRI use and hydrochlorothiazide use. Hypovolemic. Possible SIADH component. Prior urine osmolality was more than 300. It is unclear if patient is taking HCTZ but it is on her medication list. -Status post 3% saline briefly, sodium was 104 on presentation improved to 109 currently. Restarted 3% saline at 15 cc an hour. Aim for correction of 8 to 10 mEq per 24 hours.. Check urine sodium and urine osmolality. Check TSH and cortisol levels. Patient evaluated using audiovisual cart. Time spent 30 minutes Consult Attestations Medical Necessity Statement: per medicine Coding Level of Care Code [facility] Diagnoses Acute hyponatremia E87.1
[2022-09-24] MEDS: acetaminophen 325 mg Tablet 650 MG PO ×3 (10:43→20:07)
[2022-09-24 12:24] LABS: Anion Gap 14.2 (5-19); Blood Urea Nitrogen 6 mg/dL (8-23); Calcium 8.1 mg/dL (8.5-10.5); Carbon Dioxide 21 mmol/L (22-29); Chloride 80 mmol/L (98-107); Glucose 103 mg/dL (65-115); Osmolality Calculated 232 mOsm/kg (285-295); Potassium 3.2 mmol/L (3.5-5.1)
[2022-09-24 12:30] LABS: Sodium 112 mmol/L (136-145)
--- NOTE | 2022-09-24 15:02 | P.PN_ITS ---
Subjective Subjective: Thank you for having some nausea. So far no additional vomiting. Some abdominal tenderness. Later reporting her back bothering her some, asking for back rub with nursing staff. Vitals/I&O/Wt Last Vital Signs Temp 99.3 F 09/24/22 02:31 Pulse 80 09/24/22 14:43 Resp 15 09/24/22 12:29 BP 127/51 09/24/22 12:29 Pulse Ox 96 09/24/22 14:43 O2 Del Method Room Air 09/24/22 14:43 09/24/22 09/24/22 09/24/22 06:59 14:59 22:59 Intake Total 1050 / 1050 506.25 / 506.25 Output Total 1850 / 1850 Balance -800 / -800 506.25 / 506.25 Weight last 48 hrs Weight 80.331 kg Weight 81.647 kg Physical Exam Const: COMMON NORMALS: patient oriented x3 and alert GENERAL APPEARANCE: cooperative ORIENTATION/CONSCIOUSNESS: Yes awake OTHER: Reclined in bed. HENMT: COMMON NORMALS: oropharynx normal Neck/C-Spine: COMMON NORMALS: no JVD Resp: COMMON NORMALS: normal respiratory effort and clear to auscultation bilaterally AUSCULTATION: clear to auscultation bilaterally Cardio: COMMON NORMALS: no JVD, regular rhythm, S1 normal heart sound present, S2 normal heart sound present and No murmurs present (Cardio) RHYTHM: regular rhythm HEART SOUNDS: S1 normal heart sound present and S2 normal heart sound present GI: COMMON NORMALS: Normal to inspection, nondistended, normoactive bowel gloria nds present, Soft to palpation and non-tender PALPATION: Yes Soft to palp ation Extremity: COMMON NORMALS: no joint enlargement and no pedal edema Neuro: COMMON NORMALS: patient oriented x3 and moves all extremities SENSORIUM/ORIENTATION: Yes alert Skin: COMMON NORMALS: no rashes or lesions noted GENERAL SKIN EXAM: no rashes or lesions noted Urinary Catheter Management: Smyth: Cath Placed During This Visit: yes Reason for Continuing Indwelling Catheter: Accurate Measurement of Urinary Output in Critically Ill Patients Urinary Catheter Date of Insertion: 09/24/22 Urinary Catheter Time of Insertion: 03:17 Data 09/24/22 00:26 09/24/22 16:05 A&P Assessment and plan (1) Contusion of elbow, right: (2) Fall: (3) Acute hyponatremia: (4) Weakness: (5) Urinary Incontinence: Qualifiers: Urinary Incontinence type: mixed stress and urge incontinence Qualified Code(s): N39.46 - Mixed incontinence Plan #Severe hyponatremia, sodium 104 #Generalized weakness #Nausea vomiting secondary to above #History of multiple falls #3rd-5th rib fracture on left side from previous falls #Recent left shoulder nondisplaced fracture, following with Ortho as an outpatient #Hypokalemia #Lupus #Diabetes mellitus type 2 #Hypertension #Hyperlipidemia #CAD status post PCI #COPD #Parkinson's? Med rec unable to be obtained today on Sunday. Her pharmacy is not open. Please revisit regarding medications during business hours on Sunday. Severe hyponatremia: Sodium gradually improving. Up to 109, then unchanged on repeat. Resumed low rate 3% saline, recheck again 112. Held further 3% saline for today. Reassess chemistries. Nephrology documentation appreciated. TSH noted normal. Urine studies are pending. Add AM cortisol level. Target sodium rise of 8 mmol in 24 hours. We will need to discontinue HCTZ. Discussed with nursing, case management. Discussed with her sister. Hypomagnesemia noted: Has received additional magnesium this morning, will recheck magnesium level. Nausea and vomiting: So far vomiting is resolved. She is requesting to eat. For now started low-sodium diet so as not to have her sodium rising too quickly. Reassess sodium. Advance diet as tolerated. DC meloxicam if taking. Add PPI. Consider subsequent endoscopy. Hypokalemia: Replace chloride by mouth. Recheck chemistry. Recent falls, syncope: Admitting physician recommending consideration of classroom monitor at discharge. Monitor on telemetry while in the hospital. Orthostatics were overnight obtained laying to sitting, mild decrease of 144/64-139/68. Full orthostatic assessment when able. ? Vitamin B12 level 328 on 09/06 2022 ? Cardiac echo on 09/05 2022 showed normal LV systolic function, wall thickness no regional wall motion abnormalities, EF 60%. ? TSH 1.51 at previous visit ? Neurology follow-up.? There seems to be a history of tardive dyskinesia as well.? There could be possibility of falls due to Parkinson's?.? I do not see carbidopa-levodopa on her medication list.? Patient was placed on Abilify by Dr. Fung in the past.? Please discuss with her over the phone before making medication changes Back pain: Worse with immobility. Tylenol as needed. Lidocaine patch. Past lumbar vertebral fusion. Left humeral fracture: Continue follow-up with orthopedics Rib fractures: Add I-S ? Continue to follow-up with Dr. Onofre as an outpatient for pulmonary nodules Full code SCDs, on Lovenox Attestations Medical Necessity Statement*: Continue admission for assessment management of severe hyponatremia. Coding Level of Care Code Critical Care >/= 30 minutes Critical care time (in minutes): 35 The high probability of a clinically significant, sudden or life threatening deterioration, as referenced in this documentation, required my full and direct attention, intervention and personal management. The critical care time shown is in addition to time spent performing any reported separately billable procedures and includes the following: [x] Data and vital sign review and interpretation [x ] Patient assessment, examination and intervention [x] Medication orders and management [x] Patient/Family updates as able [x] Care Coordination and Documentation. Diagnoses Contusion of elbow, right S50.01XA Fall W19.XXXA Acute hyponatremia E87.1 Weakness R53.1 Urinary Incontinence N39.46 Urinary Incontinence type: mixed stress and urge incontinence
[2022-09-24 16:30] LABS: Anion Gap 13.4 (5-19); Blood Urea Nitrogen 5 mg/dL (8-23); Calcium 8.4 mg/dL (8.5-10.5); Carbon Dioxide 22 mmol/L (22-29); Chloride 80 mmol/L (98-107); Glucose 113 mg/dL (65-115); Osmolality Calculated 232 mOsm/kg (285-295); Potassium 3.4 mmol/L (3.5-5.1)
[2022-09-24 16:33] LABS: Sodium 112 mmol/L (136-145)
[2022-09-24] MEDS: pantoprazole DR 40 mg Tablet PO (17:11)
[2022-09-24] MEDS: potassium chloride ER 20 mEq Tablet PO (17:11)
--- NOTE | 2022-09-24 17:18 | NUR.SHIFT ---
Shift Note Frequent safety and comfort rounds continue. Orders and nursing care completed as indicated. Patient monitored for response to interventions and treatments. Education provided includes treatment of hyponatremia and management of nausea. Mrs. Daniels complained of back pain this afternoon, this nurse assisted patient to chair. Mrs. Daniels transferred to chair very well with no complains of dizziness or pain with movement and reports sitting in the chair helped with her back pain. Patient will need reinforcement regarding Hyponatremia s/s and treatment. Patient's visited this afternoon by wasn't present during physician rounding when education was given. Will continue to monitor.
[2022-09-24 20:24] LABS: Anion Gap 15.5 (5-19); Blood Urea Nitrogen 6 mg/dL (8-23); Carbon Dioxide 20 mmol/L (22-29); Chloride 79 mmol/L (98-107); Glucose 124 mg/dL (65-115); Osmolality Calculated 231 mOsm/kg (285-295); Potassium 3.5 mmol/L (3.5-5.1)
[2022-09-24 20:34] LABS: Sodium 111 mmol/L (136-145)
[2022-09-24] MEDS: lidocaine 5% Patch 1 PATCH TOPICAL (21:23)
[2022-09-24] MEDS: morphine 4 mg/mL SDV 1 mL 1 MG IVP (21:24)
[2022-09-25] VITALS (37 sets, daily range): BP systolic 83–160; BP diastolic 44–91; PULSE 54–73; RESP 16–24; TEMP 36.8–37.1; O2SAT 93–99
[2022-09-25 00:03] LABS: Anion Gap 14.5 (5-19); Blood Urea Nitrogen 5 mg/dL (8-23); Calcium 8.1 mg/dL (8.5-10.5); Carbon Dioxide 19 mmol/L (22-29); Chloride 82 mmol/L (98-107); Glucose 97 mg/dL (65-115); Osmolality Calculated 231 mOsm/kg (285-295); Potassium 3.5 mmol/L (3.5-5.1)
[2022-09-25 00:08] LABS: Sodium 112 mmol/L (136-145)
[2022-09-25] MEDS: acetaminophen 325 mg Tablet 650 MG PO ×6 (00:24→20:41)
[2022-09-25] MEDS: sodium chloride 3% 500 ML 20 ML IV ×2 (01:26→18:24)
[2022-09-25] MEDS: enoxaparin 40 mg/0.4 mL Syringe SUBCUT (01:57)
--- NOTE | 2022-09-25 03:19 | PC.NURSE ---
late entries: 1999, Dr. Tiara ackermanfied of critical sodium of 111, new order recieved to resume 0.3% saline at 15ml/hr. redraw at 0000, sodium 112, new order recieved to increase 0.3% saline to 20ml/hr, next draw due at 0400.
[2022-09-25 03:45] LABS: Basophils % 0.4 %; Eosinophils % 0.9 %; Hemoglobin 11.1 g/dL (11.5-15.3); Lymphocytes # 0.7 10^3/uL (0.8-4.8); Lymphocytes % 31.3 %; Mean Corpuscular HGB Conc 35.8 g/dL (30.0-36.0); Mean Corpuscular Hemoglobin 29.7 pg (28.0-34.0); Mean Corpuscular Volume 82.9 fl (81-99); Monocytes # 0.4 10^3/uL (0.2-0.9); Monocytes % 16.1 %; Neutrophils # 1.14 10^3/uL (1.8-7.7); Neutrophils % 50.9 %; Nucleated Red Blood Cells % 0 %; Platelet Count 216 10^3/cmm (130-400); Red Blood Count 3.74 10^6/uL (4.1-5.3); Red Cell Distribution Width 11.8 % (12.1-15.1); White Blood Count 2.2 10^3/uL (4.0-10.0)
[2022-09-25 03:58] LABS: Alanine Aminotransferase 17 U/L (0-33); Albumin Level 3.4 g/dL (3.5-5.2); Alkaline Phosphatase 90 U/L (35-105); Anion Gap 12.6 (5-19); Aspartate Amino Transferase 34 U/L (0-32); Blood Urea Nitrogen 4 mg/dL (8-23); Calcium 8.3 mg/dL (8.5-10.5); Carbon Dioxide 23 mmol/L (22-29); Chloride 86 mmol/L (98-107); Globulin 2.5 g/dL (1.3-4.6); Glucose 96 mg/dL (65-115); Magnesium 1.7 mg/dL (1.7-2.3); Osmolality Calculated 243 mOsm/kg (285-295); Potassium 3.6 mmol/L (3.5-5.1); Total Bilirubin 0.2 mg/dL (0.15-1.2); Total Protein 5.9 g/dL (6.6-8.7)
[2022-09-25 04:11] LABS: Cortisol Random 15.98 ug/dL (2.47-19.5)
[2022-09-25 04:16] LABS: Sodium 118 mmol/L (136-145)
--- NOTE | 2022-09-25 04:25 | PC.NURSE ---
sodium 118, Dr. Menjivar notified, new order to discontinue the 0.3% saline drip.
--- NOTE | 2022-09-25 08:11 | PM.PN ---
Subjective Subjective: Hypertonic saline has been discontinued We will touch with nephro to see if we need to start D5 Sodium 118 Patient is not complaining of active weakness of her arms or legs Vitals/I&O/Wt Last Vital Signs Temp 98.4 F 09/25/22 06:00 Pulse 65 09/25/22 06:00 Resp 19 H 09/25/22 06:00 BP 137/73 09/25/22 06:00 Pulse Ox 95 09/25/22 06:00 O2 Del Method Room Air 09/25/22 06:00 O2 Flow Rate 94 09/24/22 22:00 09/24/22 09/25/22 09/25/22 22:59 06:59 14:59 Intake Total 530 / 1036.25 600 / 1636.25 Output Total 1450 / 1450 2700 / 4150 Balance -920 / -413.75 -2100 / -2513.75 Weight last 48 hrs Weight 79.889 kg Weight 80.331 kg Weight 81.647 kg Physical Exam Narrative: Constricted pupils Able to move her right arm Left arm limited motion Able to comprehend my questions GCS 15 S1, S2 Currently on room air Mild resting tremors Abdomen soft Urinary Catheter Management: Smyth: Cath Placed During This Visit: yes Reason for Continuing Indwelling Catheter: Accurate Measurement of Urinary Output in Critically Ill Patients Urinary Catheter Date of Insertion: 09/24/22 Urinary Catheter Time of Insertion: 03:17 Data 09/25/22 03:34 09/25/22 03:34 A&P Assessment and plan (1) Contusion of elbow, right: (2) Fall: (3) Acute hyponatremia: (4) Weakness: (5) Amphetamine use disorder, moderate, in sustained remission: (6) ZAY positive: (7) SS-A antibody positive: (8) Dyspnea on exertion: (9) Parkinsonian tremor: (10) Mass of right lung: Plan Hypovolemic hyponatremia Sodium 118 today Hypertonic saline discontinued Hydrochlorothiazide discontinued TSH cortisol normal Hypomagnesemia: Repleted Nausea and vomiting: Resolved NSAID induced? Continue Protonix Hypokalemia: Repleted Recurrent falls and syncope could be related to deconditioning, B12 was low normal EF is preserved Patient seems to have resting tremors, she was taking Abilify Follows up with neurology Left humeral fracture arm is in a sling Limited range of motion Full code DVT prophylaxis covered with anticoagulating agent Regular diet Attestations Medical Necessity Statement*: Continue medical management Diagnoses Contusion of elbow, right S50.01XA Fall W19.XXXA Acute hyponatremia E87.1 Weakness R53.1 Amphetamine use disorder, moderate, in sustained remission F15.21 ZAY positive R76.8 SS-A antibody positive R76.8 Dyspnea on exertion R06.00 Parkinsonian tremor G20 Mass of right lung R91.8
[2022-09-25] MEDS: atorvastatin 40 mg Tablet PO (08:24)
[2022-09-25] MEDS: lidocaine 5% Patch 1 PATCH TOPICAL ×2 (08:24→20:43)
[2022-09-25] MEDS: clopidogrel 75 mg Tablet PO (08:24)
[2022-09-25] MEDS: pantoprazole DR 40 mg Tablet PO (08:24)
[2022-09-25] MEDS: levothyroxine 100 mcg Tablet PO (08:24)
[2022-09-25 09:26] LABS: Sodium 117 mmol/L (136-145)
[2022-09-25] MEDS: metoprolol succinate ER (24 HR) 25 mg Tablet 75 MG PO (09:35)
[2022-09-25] MEDS: duloxetine 60 mg Capsule PO (09:35)
[2022-09-25] MEDS: gabapentin 400 mg Capsule 800 MG PO ×3 (09:35→20:41)
[2022-09-25] MEDS: losartan 50 mg Tablet 100 MG PO (09:35)
[2022-09-25] MEDS: amlodipine 10 mg Tablet PO (09:36)
[2022-09-25 12:16] LABS: Sodium 118 mmol/L (136-145)
--- NOTE | 2022-09-25 13:19 | PM.PN ---
Subjective Subjective: Patient is sitting up in a chair, complains of some nausea denies any other complaints Medications: Reviewed: Yes Vitals/I&O/Wt Last Vital Signs Temp 98.4 F 09/25/22 06:00 Pulse 59 L 09/25/22 13:00 Resp 18 09/25/22 13:00 BP 107/62 09/25/22 13:00 Pulse Ox 96 09/25/22 13:00 O2 Del Method Room Air 09/25/22 13:00 O2 Flow Rate 94 09/24/22 22:00 09/24/22 09/25/22 09/25/22 22:59 06:59 14:59 Intake Total 530 / 1036.25 600 / 1636.25 240 / 240 Output Total 1450 / 1450 2700 / 4150 1000 / 1000 Balance -920 / -413.75 -2100 / -2513.75 -760 / -760 Weight last 48 hrs Weight 79.889 kg Weight 80.331 kg Weight 81.647 kg Physical Exam Narrative: Patient is awake alert, sitting up in a chair in no acute distress Urinary Catheter Management: Smyth: Cath Placed During This Visit: yes Reason for Continuing Indwelling Catheter: Accurate Measurement of Urinary Output in Critically Ill Patients Urinary Catheter Date of Insertion: 09/24/22 Urinary Catheter Time of Insertion: 03:17 Data 09/25/22 03:34 09/25/22 11:36 A&P Assessment and plan (1) Acute hyponatremia: Plan 1. Hyponatremia: Likely multifactorial with SSRI use and hydrochlorothiazide use. Hypovolemic. Possible SIADH component. Prior urine osmolality was more than 300. It is unclear if patient is taking HCTZ but it is on her medication list. -Status post 3% saline briefly, sodium was 104 on presentation improved to 118 currently. . Aim for correction of 8 to 10 mEq per 24 hours.. Urine Na was 10 and urine Osmolality is pending -We will continue to watch without 3% saline, will add urea tabs and IV albumin, continue BMP every 4 hours. Patient evaluated using audiovisual cart. Time spent 30 minutes Attestations Medical Necessity Statement*: per [facility] Coding Level of Care Code Acute Code for [facility] Fwd Diagnoses Acute hyponatremia E87.1
[2022-09-25] MEDS: albumin 25 G/100 ML BAG 60 G IV ×2 (13:40→20:42)
[2022-09-25 17:47] LABS: Sodium 115 mmol/L (136-145)
[2022-09-25 22:00] LABS: Sodium 120 mmol/L (136-145)
--- NOTE | 2022-09-25 22:25 | PC.NURSE ---
New Na lab result reported to Dr. Telma Gregorio (Ka=[phone]). Instructed to continued 3% NaCl and recheck in 4 hours as ordered.
[2022-09-26] VITALS (28 sets, daily range): BP systolic 83–152; BP diastolic 44–91; PULSE 53–86; RESP 14–28; TEMP 36.2–37.1; O2SAT 90–96
[2022-09-26] MEDS: enoxaparin 40 mg/0.4 mL Syringe SUBCUT (03:34)
[2022-09-26 04:16] LABS: Basophils % 0.9 %; Eosinophils % 0.9 %; Hematocrit 30.7 % (37.0-47.0); Hemoglobin 10.6 g/dL (11.5-15.3); Lymphocytes # 0.9 10^3/uL (0.8-4.8); Lymphocytes % 40.9 %; Mean Corpuscular HGB Conc 34.5 g/dL (30.0-36.0); Mean Corpuscular Hemoglobin 29.7 pg (28.0-34.0); Mean Platelet Volume 9.1 fL (7.4-10.4); Monocytes # 0.4 10^3/uL (0.2-0.9); Monocytes % 15.7 %; Neutrophils % 41.2 %; Nucleated Red Blood Cells % 0 %; Platelet Count 210 10^3/cmm (130-400); Red Blood Count 3.57 10^6/uL (4.1-5.3); White Blood Count 2.3 10^3/uL (4.0-10.0)
[2022-09-26 04:27] LABS: Alanine Aminotransferase 15 U/L (0-33); Albumin Level 3.8 g/dL (3.5-5.2); Alkaline Phosphatase 73 U/L (35-105); Anion Gap 12.6 (5-19); Aspartate Amino Transferase 25 U/L (0-32); Blood Urea Nitrogen 7 mg/dL (8-23); Calcium 8.3 mg/dL (8.5-10.5); Carbon Dioxide 23 mmol/L (22-29); Chloride 100 mmol/L (98-107); Globulin 2.1 g/dL (1.3-4.6); Glucose 81 mg/dL (65-115); Osmolality Calculated 271 mOsm/kg (285-295); Potassium 3.6 mmol/L (3.5-5.1); Sodium 132 mmol/L (136-145); Total Bilirubin 0.2 mg/dL (0.15-1.2); Total Protein 5.9 g/dL (6.6-8.7)
[2022-09-26 04:35] LABS: Slide Review Slide Review Perform
[2022-09-26 04:37] LABS: Neutrophils # 0.95 10^3/uL (1.8-7.7)
[2022-09-26] MEDS: albumin 25 G/100 ML BAG 60 G IV ×2 (05:54→13:37)
[2022-09-26] MEDS: metoprolol succinate ER (24 HR) 25 mg Tablet 75 MG PO (08:47)
[2022-09-26] MEDS: amlodipine 10 mg Tablet PO (08:47)
[2022-09-26] MEDS: gabapentin 400 mg Capsule 800 MG PO ×3 (08:48→20:37)
[2022-09-26] MEDS: duloxetine 60 mg Capsule PO (08:48)
[2022-09-26] MEDS: clopidogrel 75 mg Tablet PO (08:48)
[2022-09-26] MEDS: atorvastatin 40 mg Tablet PO (08:48)
[2022-09-26] MEDS: losartan 50 mg Tablet 100 MG PO (08:48)
[2022-09-26] MEDS: pantoprazole DR 40 mg Tablet PO (08:48)
[2022-09-26] MEDS: levothyroxine 100 mcg Tablet PO (08:48)
[2022-09-26] MEDS: urea 15 gm Powder 10 GM PO (09:22)
--- NOTE | 2022-09-26 11:05 | P.PN_ITS ---
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 Patient not showing any signs of neurological damage no active weakness confusion or tremors or headache patient is stating that she is feeling better today No bowel movement yet She does not endorse constipation She is okay with transfer out of ICU to [facility] Vitals/I&O/Wt Last Vital Signs Temp 97.1 F L 09/26/22 06:00 Pulse 59 L 09/26/22 10:00 Resp 19 H 09/26/22 10:00 BP 105/71 09/26/22 10:00 Pulse Ox 94 09/26/22 10:00 O2 Del Method Room Air 09/26/22 10:00 O2 Flow Rate 5 09/25/22 22:30 09/25/22 09/26/22 09/26/22 22:59 06:59 14:59 Intake Total 547.333 / 787.333 450 / 450 Output Total 650 / 1650 700 / 2350 600 / 600 Balance -102.667 / -862.667 -700 / -1562.667 -150 / -150 Weight last 48 hrs Weight 78.018 kg Weight 79.889 kg Physical Exam Narrative: Patient not showing any signs of neurological decompensation No headache No sign of meningismus Awake and alert GCS 15 Nonfocal neuro exam S1, S2 Currently on room air Left arm in a sling Abdomen soft Looks euvolemic Urinary Catheter Management: Smyth: Cath Placed During This Visit: yes, but has since been removed by the nurse Reason for Continuing Indwelling Catheter: Decision to DC Catheter Urinary Catheter Date of Insertion: 09/24/22 Urinary Catheter Time of Insertion: 03:17 Date Urinary Catheter Removed: 09/25/22 Time Urinary Catheter Discontinued: 15:35 Data 09/26/22 02:38 09/26/22 02:38 A&P Assessment and plan (1) Contusion of elbow, right: (2) Fall: (3) Acute hyponatremia: (4) Weakness: (5) Amphetamine use disorder, moderate, in sustained remission: (6) Rheumatoid arthritis: (7) Dyspnea on exertion: (8) ZAY positive: (9) Parkinsonian tremor: (10) Urinary Incontinence: Qualifiers: Urinary Incontinence type: mixed stress and urge incontinence Qualified Code(s): N39.46 - Mixed incontinence (11) Nicotine dependence, cigarettes, in remission: Plan Hypovolemic hyponatremia Sodium 132 Appreciate nephro recommendations Hypertonic saline discontinued which was restarted yesterday evening No neurological decompensation sign Urine osmolarity is pending Random urine sodium is 10, normal TSH and cortisol, serum molality is pending Hypomagnesemia: Resolved Hypokalemia: Give her 40 meq p.o. Nausea and vomiting: Resolved She does have hiatal hernia Will request PT evaluation for her recurrent falls and syncope I would continue B12 for low normal B12 level Preserved ejection fraction no acute decompensation Parkinson resting tremors no acute decompensation Left humeral contusion without fracture Limited range of motion no vascular compromise Stable spiculated lesion left upper lobe 6 mm outpatient follow-up with pulmonology, hyponatremia cancer related Bradycardia related to sinus bradycardia with first-degree block, hold metoprolol succinate Full code Regular diet Transfer out of ICU to [facility] Medical Necessity Statement*: Plan her disposition in next 24 to 30 hours if remains stable Diagnoses Contusion of elbow, right S50.01XA Fall W19.XXXA Acute hyponatremia E87.1 Weakness R53.1 Amphetamine use disorder, moderate, in sustained remission F15.21 Rheumatoid arthritis M06.9 Dyspnea on exertion R06.00 ZAY positive R76.8 Parkinsonian tremor G20 Urinary Incontinence N39.46 Urinary Incontinence type: mixed stress and urge incontinence Nicotine dependence, cigarettes, in remission F17.211
--- NOTE | 2022-09-26 14:28 | PM.PN ---
Subjective Subjective: doing better Medications: Reviewed: Yes Vitals/I&O/Wt Last Vital Signs Temp 97.1 F L 09/26/22 06:00 Pulse 56 L 09/26/22 13:00 Resp 20 H 09/26/22 13:00 BP 147/61 09/26/22 13:00 Pulse Ox 93 09/26/22 13:00 O2 Del Method Room Air 09/26/22 13:00 O2 Flow Rate 5 09/25/22 22:30 09/25/22 09/26/22 09/26/22 22:59 06:59 14:59 Intake Total 547.333 / 787.333 690 / 690 Output Total 650 / 1650 700 / 2350 600 / 600 Balance -102.667 / -862.667 -700 / -1562.667 90 / 90 Weight last 48 hrs Weight 78.018 kg Weight 79.889 kg Physical Exam Narrative: Patient is awake alert, sitting up in a chair in no acute distress Urinary Catheter Management: Smyth: Cath Placed During This Visit: yes, but has since been removed by the nurse Reason for Continuing Indwelling Catheter: Decision to DC Catheter Urinary Catheter Date of Insertion: 09/24/22 Urinary Catheter Time of Insertion: 03:17 Date Urinary Catheter Removed: 09/25/22 Time Urinary Catheter Discontinued: 15:35 Data 09/26/22 02:38 09/26/22 02:38 A&P Assessment and plan (1) Acute hyponatremia: Plan 1. Hyponatremia: Likely multifactorial with SSRI use and hydrochlorothiazide use. Hypovolemic. Possible SIADH component. Prior urine osmolality was more than 300. It is unclear if patient is taking HCTZ but it is on her medication list. -Status post 3% saline briefly, sodium was 104 on presentation improved to 118 currently. . Aim for correction of 8 to 10 mEq per 24 hours.. Urine Na was 10 and urine Osmolality is pending - Na 132 today , repeat BMP and continue to monitor . DC iv albumin and Urea tabs Patient evaluated using audiovisual cart. Time spent 30 minutes Attestations Medical Necessity Statement*: per medicine Coding Level of Care Code Acute Code for Chg Fwd Diagnoses Acute hyponatremia E87.1
--- NOTE | 2022-09-26 14:38 | PC.NURSE ---
Report called to TERRENCE Walker. Patient and belongings wheeled to [phone]. No further questions.
[2022-09-26 16:00] LABS: Blood Urea Nitrogen 11 mg/dL (8-23); Calcium 8.5 mg/dL (8.5-10.5); Carbon Dioxide 18 mmol/L (22-29); Chloride 96 mmol/L (98-107); Glucose 165 mg/dL (65-115); Osmolality Calculated 267 mOsm/kg (285-295); Sodium 127 mmol/L (136-145)
[2022-09-26 16:06] LABS: Anion Gap 17.1 (5-19); Potassium 4.1 mmol/L (3.5-5.1)
[2022-09-26] MEDS: ipratropium-albuterol 3 mL Neb INHALATION (19:37)
[2022-09-26] MEDS: lidocaine 5% Patch 1 PATCH TOPICAL (20:38)
[2022-09-27] VITALS (18 sets, daily range): BP systolic 124–149; BP diastolic 22–78; PULSE 54–72; RESP 16–18; TEMP 36.6–37.4; O2SAT 91–96
[2022-09-27] MEDS: enoxaparin 40 mg/0.4 mL Syringe SUBCUT (01:51)
[2022-09-27] MEDS: acetaminophen 325 mg Tablet 650 MG PO (01:51)
[2022-09-27 02:41] LABS: Basophils % 0.6 %; Eosinophils % 0.6 %; Hematocrit 29.3 % (37.0-47.0); Hemoglobin 9.9 g/dL (11.5-15.3); Lymphocytes # 1.3 10^3/uL (0.8-4.8); Lymphocytes % 36.1 %; Mean Corpuscular HGB Conc 33.8 g/dL (30.0-36.0); Mean Corpuscular Hemoglobin 29.5 pg (28.0-34.0); Mean Corpuscular Volume 87.2 fl (81-99); Monocytes # 0.4 10^3/uL (0.2-0.9); Monocytes % 12.1 %; Neutrophils % 50.6 %; Nucleated Red Blood Cells % 0 %; Platelet Count 194 10^3/cmm (130-400); Red Blood Count 3.36 10^6/uL (4.1-5.3); Red Cell Distribution Width 12.7 % (12.1-15.1); White Blood Count 3.6 10^3/uL (4.0-10.0)
[2022-09-27 03:00] LABS: Alanine Aminotransferase 16 U/L (0-33); Albumin Level 4.2 g/dL (3.5-5.2); Alkaline Phosphatase 69 U/L (35-105); Anion Gap 15.1 (5-19); Aspartate Amino Transferase 21 U/L (0-32); Blood Urea Nitrogen 15 mg/dL (8-23); Calcium 8.8 mg/dL (8.5-10.5); Carbon Dioxide 21 mmol/L (22-29); Chloride 95 mmol/L (98-107); Globulin 1.9 g/dL (1.3-4.6); Glucose 112 mg/dL (65-115); Osmolality Calculated 266 mOsm/kg (285-295); Potassium 4.1 mmol/L (3.5-5.1); Sodium 127 mmol/L (136-145); Total Bilirubin 0.3 mg/dL (0.15-1.2); Total Protein 6.1 g/dL (6.6-8.7)
[2022-09-27 08:29] LABS: Osmolality Urine 123 mOsm/kg (50-1200)
[2022-09-27 08:32] LABS: Osmolality Serum 228 mOsm/kg (278-305)
[2022-09-27] MEDS: duloxetine 60 mg Capsule PO (10:12)
[2022-09-27] MEDS: clopidogrel 75 mg Tablet PO (10:12)
[2022-09-27] MEDS: pantoprazole DR 40 mg Tablet PO (10:12)
[2022-09-27] MEDS: levothyroxine 100 mcg Tablet PO (10:12)
[2022-09-27] MEDS: gabapentin 400 mg Capsule 800 MG PO ×3 (10:12→20:30)
[2022-09-27] MEDS: atorvastatin 40 mg Tablet PO (10:12)
[2022-09-27] MEDS: amlodipine 10 mg Tablet PO (10:13)
[2022-09-27] MEDS: lidocaine 5% Patch 1 PATCH TOPICAL ×2 (10:13→20:31)
[2022-09-27] MEDS: ipratropium-albuterol 3 mL Neb INHALATION (10:15)
--- NOTE | 2022-09-27 11:05 | PM.PN ---
Subjective Subjective: Sodium 127 Patient is willing to stay 1 more day I am watching her sodium for now No neurological decompensation Tolerating her diet Having regular bowel movement Vitals/I&O/Wt Last Vital Signs Temp 98.8 F 09/27/22 10:00 Pulse 60 09/27/22 10:16 Resp 16 09/27/22 10:16 BP 131/52 09/27/22 10:00 Pulse Ox 95 09/27/22 10:16 O2 Del Method Room Air 09/27/22 10:16 O2 Flow Rate 5 09/25/22 22:30 09/26/22 09/27/22 09/27/22 22:59 06:59 14:59 Intake Total 798 / 1488 480 / 1968 480 / 480 Output Total 175 / 175 Balance 798 / 888 480 / 1368 305 / 305 Weight last 48 hrs Weight 79.107 kg Weight 78.018 kg Physical Exam Narrative: NIH 0 S1, S2 Abdomen soft Currently on room air GCS 15 Abdomen soft Euvolemic Awake and alert Nonfocal neuro exam Urinary Catheter Management: Smyth: Cath Placed During This Visit: yes, but has since been removed by the nurse Reason for Continuing Indwelling Catheter: Decision to DC Catheter Urinary Catheter Date of Insertion: 09/24/22 Urinary Catheter Time of Insertion: 03:17 Date Urinary Catheter Removed: 09/25/22 Time Urinary Catheter Discontinued: 15:35 Data 09/27/22 02:28 09/27/22 02:28 A&P Assessment and plan (1) Contusion of elbow, right: (2) Fall: (3) Acute hyponatremia: (4) Weakness: (5) Amphetamine use disorder, moderate, in sustained remission: (6) Rheumatoid arthritis: (7) SS-A antibody positive: (8) Parkinsonian tremor: (9) Nicotine dependence, cigarettes, in remission: Plan Acute hyponatremia: Sodium 127 No neurological decompensation noted Hypertensive: Blood pressure is stable with current antihypertensive regimen Secondary to bradycardia I have discontinued her metoprolol succinate Continue antidepressant for her bipolar disorder Plan to discharge her tomorrow Full code Regular diet Appreciate nephro recommendations Continue levothyroxine Attestations Medical Necessity Statement*: Discharge tomorrow Diagnoses Contusion of elbow, right S50.01XA Fall W19.XXXA Acute hyponatremia E87.1 Weakness R53.1 Amphetamine use disorder, moderate, in sustained remission F15.21 Rheumatoid arthritis M06.9 SS-A antibody positive R76.8 Parkinsonian tremor G20 Nicotine dependence, cigarettes, in remission F17.211
--- NOTE | 2022-09-27 13:03 | PM.PN ---
Subjective Subjective: doing well Medications: Reviewed: Yes Vitals/I&O/Wt Last Vital Signs Temp 97.9 F 09/27/22 11:08 Pulse 63 09/27/22 11:08 Resp 16 09/27/22 11:08 BP 132/56 09/27/22 11:08 Pulse Ox 93 09/27/22 11:08 O2 Del Method Room Air 09/27/22 10:16 O2 Flow Rate 5 09/25/22 22:30 09/26/22 09/27/22 09/27/22 22:59 06:59 14:59 Intake Total 798 / 1488 480 / 1968 840 / 840 Output Total 175 / 175 Balance 798 / 888 480 / 1368 665 / 665 Weight last 48 hrs Weight 79.107 kg Weight 78.018 kg Physical Exam Narrative: Patient is awake alert, sitting up in a chair in no acute distress Urinary Catheter Management: Smyth: Cath Placed During This Visit: yes, but has since been removed by the nurse Reason for Continuing Indwelling Catheter: Decision to DC Catheter Urinary Catheter Date of Insertion: 09/24/22 Urinary Catheter Time of Insertion: 03:17 Date Urinary Catheter Removed: 09/25/22 Time Urinary Catheter Discontinued: 15:35 Data 09/27/22 02:28 09/27/22 02:28 A&P Assessment and plan (1) Acute hyponatremia: Plan 1. Hyponatremia: Likely multifactorial with SSRI use and hydrochlorothiazide use. Hypovolemic. Possible SIADH component. Prior urine osmolality was more than 300. It is unclear if patient is taking HCTZ but it is on her medication list. -Status post 3% saline briefly, sodium was 104 on presentation improved to 118 currently. . Aim for correction of 8 to 10 mEq per 24 hours.. Urine Na was 10 and urine Osmolality is pending - Na 127 , added fluid restriction 1500 ml/day, . DC iv albumin and Urea tabs Patient evaluated using audiovisual cart. Time spent 30 minutes Attestations Medical Necessity Statement*: per medicine Coding Level of Care Code Acute Code for Chg Fwd Diagnoses Acute hyponatremia E87.1
[2022-09-28] VITALS (10 sets, daily range): BP systolic 143–157; BP diastolic 71–76; PULSE 66–84; RESP 15–18; TEMP 36.4–36.9; O2SAT 94–97
[2022-09-28] MEDS: enoxaparin 40 mg/0.4 mL Syringe SUBCUT (03:13)
[2022-09-28 04:11] LABS: Anion Gap 13.1 (5-19); Blood Urea Nitrogen 10 mg/dL (8-23); Carbon Dioxide 22 mmol/L (22-29); Chloride 99 mmol/L (98-107); Glucose 112 mg/dL (65-115); Osmolality Calculated 270 mOsm/kg (285-295); Potassium 4.1 mmol/L (3.5-5.1); Sodium 130 mmol/L (136-145)
[2022-09-28] MEDS: gabapentin 400 mg Capsule 800 MG PO (08:02)
[2022-09-28] MEDS: duloxetine 60 mg Capsule PO (08:02)
[2022-09-28] MEDS: pantoprazole DR 40 mg Tablet PO (08:02)
[2022-09-28] MEDS: clopidogrel 75 mg Tablet PO (08:02)
[2022-09-28] MEDS: atorvastatin 40 mg Tablet PO (08:02)
[2022-09-28] MEDS: levothyroxine 100 mcg Tablet PO (08:02)
[2022-09-28] MEDS: urea 15 gm Powder 10 GM PO (08:03)
[2022-09-28] MEDS: amlodipine 10 mg Tablet PO (08:05)
[2022-09-28] MEDS: losartan 50 mg Tablet 100 MG PO (10:20)
--- NOTE | 2022-09-28 10:53 | PM.DCS ---
Discharge Providers Date of Admission: 09/24/22 02:09 Date of Discharge: September 28, 2022 Attending Provider at Admission: Fariha Chowdary MD Attending Provider at Discharge: Jose F Leon MD Primary Care Provider: Brett Guallpa MD Diagnoses at Discharge Discharge Diagnosis (1) Acute hyponatremia: Status: Acute Reason for Visit Reason for Visit: weakness N/V Hospital Course Hospital Course 76-year female who was admitted to the hospital for management evaluation of acute hyponatremia patient was taking diuretics including hydrochlorothiazide and torsemide, she was given hypertonic saline her sodium was corrected with recommendations of account support analyst patient did not show any signs of rapid sodium correction with neurological deterioration, she lives with a friend, she did not allow us to update her family, she sustained a fall at home no acute fractures identified on pelvic and chest x-ray, head CT unremarkable. Sodium at the time of discharge is 130. I would avoid giving her diuretics at the time of discharge,Because of her bradycardia metoprolol was discontinued it is showing first-degree AV block on EKG, she has preserved ejection fraction, magnesium and potassium was repleted. She does have stable spiculated lesion left upper lobe 6 mm I would recommend outpatient pulmonary follow-up. she was seen Dr. Syed 2020 Physical Exam Narrative: NIH 0 S1, S2 Abdomen soft Currently on room air GCS 15 Abdomen soft Euvolemic Awake and alert Nonfocal neuro exam Urinary Catheter Management: Smyth: Cath Placed During This Visit: yes, but has since been removed by the nurse Reason for Continuing Indwelling Catheter: Decision to DC Catheter Urinary Catheter Date of Insertion: 09/24/22 Urinary Catheter Time of Insertion: 03:17 Date Urinary Catheter Removed: 09/25/22 Time Urinary Catheter Discontinued: 15:35 Discharge Data Studies Completed and Pending Completed Studies During Hospitalization Category Date Time Status CT head wo con* [id number] Stat Cat Scan 09/24/22 00:32 Completed XR chest 1V portable [id number] Stat Exams 09/24/22 00:23 Completed XR pelvis 1-2V* [id number] Stat Exams 09/24/22 00:43 Completed Radiology Impressions Chest X-Ray 09/24/22 00:23 IMPRESSION: No acute findings. Head CT 09/24/22 00:32 IMPRESSION: No acute intracranial abnormality. Pelvis X-Ray 09/24/22 00:43 IMPRESSION: Negative for acute fracture. Laboratory Results WBC 3.6 10^3/uL (4.0-10.0) L 09/27/22 02:28 RBC 3.36 10^6/uL (4.1-5.3) L 09/27/22 02:28 Hgb 9.9 g/dL (11.5-15.3) L 09/27/22 02:28 Hct 29.3 % (37.0-47.0) L 09/27/22 02:28 MCV 87.2 fl (81-99) 09/27/22 02:28 MCH 29.5 pg (28.0-34.0) 09/27/22 02: MCHC 33.8 g/dL (30.0-36.0) 09/27/22 02: RDW 12.7 % (12.1-15.1) 09/27/22 02:28 Plt Count 194 10^3/cmm (130-400) 09/27/22 02:28 MPV 9.0 fL (7.4-10.4) 09/27/22 02:28 Neut % (Auto) 50.6 % 09/27/22 02:28 Lymph % (Auto) 36.1 % 09/27/22 02:28 [place] % (Auto) 12.1 % 09/27/22 02:28 Eos % (Auto) 0.6 % 09/27/22 02:28 Baso % (Auto) 0.6 % 09/27/22 02:28 Neut # (Auto) 1.80 10^3/uL (1.8-7.7) 09/27/22 02:28 Lymph # (Auto) 1.3 10^3/uL (0.8-4.8) 09/27/22 02:28 [place] # (Auto) 0.4 10^3/uL (0.2-0.9) 09/27/22 02:28 Eos # (Auto) 0.0 10^3/uL (0.0-0.8) 09/27/22 02:28 Baso # (Auto) 0.0 10^3/uL (0.0-0.1) 09/27/22 02:28 Nucleated RBC % (auto) 0 % 09/27/22 02:28 Nucleated RBCs # 0.0 /100WBC 09/27/22 02:28 PT 13.10 SECONDS (12.1-14.9) 09/24/22 00:26 INR 0.96 (0.8-1.2) 09/24/22 00:26 Sodium 130 mmol/L (136-145) L 09/28/22 03:27 Potassium 4.1 mmol/L (3.5-5.1) 09/28/22 03:27 Chloride 99 mmol/L (98-107) 09/28/22 03:27 Carbon Dioxide 22 mmol/L (22-29) 09/28/22 03:27 Anion Gap 13.1 (5-19) 09/28/22 03:27 BUN 10 mg/dL (8-23) 09/28/22 03:27 Creatinine 0.6 mg/dL (0.5-0.9) 09/28/22 03:27 GFR Calculation Not Reportable 09/28/22 03:27 Glucose 112 mg/dL (65-115) 09/28/22 03:27 POC Glucose 134 mg/dL (70-110) H 09/24/22 01:35 Serum Osmolality 228 mOsm/kg (278-305) L 09/24/22 02:41 Calculated Osmolality 270 mOsm/kg (285-295) L 09/28/22 03:27 Calcium 9.0 mg/dL (8.5-10.5) 09/28/22 03:27 Magnesium 1.7 mg/dL (1.7-2.3) 09/25/22 03:34 Total Bilirubin 0.3 mg/dL (0.15-1.2) 09/27/22 02:28 AST 21 U/L (0-32) 09/27/22 02:28 ALT 16 U/L (0-33) 09/27/22 02:28 Alkaline Phosphatase 69 U/L (35-105) 09/27/22 02:28 Ammonia 21 umol/L (11-51) 09/24/22 02:41 Total Protein 6.1 g/dL (6.6-8.7) L 09/27/22 02:28 Albumin 4.2 g/dL (3.5-5.2) 09/27/22 02:28 Globulin 1.9 g/dL (1.3-4.6) 09/27/22 02:28 TSH 1.51 uIU/mL (0.27-4.20) 09/24/22 00:26 Random Cortisol 15.98 ug/dL (2.47-19.5) 09/25/22 03:34 Urine Color Yellow (Yellow) 09/24/22 01:26 Urine Appearance Clear (CLEAR) 09/24/22 01:26 Urine pH 6 (5-7) 09/24/22 01:26 Ur Specific [place] 1.015 (1.005-1.030) 09/24/22 01:26 Urine Protein Neg (Negative) 09/24/22 01:26 Urine Glucose (UA) Norm (Normal) 09/24/22 01:26 Urine Ketones Negative (Negative) 09/24/22 01:26 Urine Blood Neg (Negative) 09/24/22 01:26 Urine Nitrate Negative (Negative) 09/24/22 01:26 Urine Bilirubin Neg (Negative) 09/24/22 01:26 Urine Urobilinogen Norm mg/dL (Negative) 09/24/22 01:26 Ur Leukocyte Esterase Negative (Negative) 09/24/22 01:26 Urine Osmolality 123 mOsm/kg (50-1200) 09/24/22 03:14 Ur Random Sodium 10 mmol/L 09/24/22 03:14 Vitals Last Vital Signs Temp 97.8 F 09/28/22 09:33 Pulse 83 09/28/22 09:33 Resp 16 09/28/22 09:33 BP 156/71 09/28/22 10:20 Pulse Ox 95 09/28/22 09:33 O2 Del Method Room Air 09/28/22 09:33 O2 Flow Rate 5 09/27/22 20:00 Discharge Plan Discharge Patient Disposition: Home Condition: Stable Prescriptions: New hydralazine 50 mg tablet 50 mg PO BID Qty: 60 4RF Continued cholecalciferol (vitamin D3) 50 mcg (2,000 unit) capsule 50 mcg PO DAILY atorvastatin [Lipitor] 80 mg tablet 80 mg PO DAILY Breztri Aerosphere 160-9-4.8 mcg/actuation HFA aerosol inhaler 2 inh inhalation BID 30 Days Qty: 10.7 6RF docusate sodium [Colace] 100 mg capsule 100 mg PO BID PRN (Reason: Constipation) ropinirole 2 mg tablet 2 mg PO BEDTIME carbamazepine 200 mg tablet 200 mg PO BID Qty: 60 3RF (DME) diabetic shoes with 3 pairs inserts See Rx Instructions .Route .MEDSUPPLY Qty: 1 0RF Rx Instructions: As directed HOME Ingrezza 80 mg capsule 80 mg PO DAILY Qty: 30 2RF hydroxychloroquine 200 mg tablet 200 mg PO BID Qty: 60 0RF Rx Instructions: rx filled 06/30/22 30d/s albuterol sulfate [Ventolin HFA] 90 mcg/actuation HFA aerosol inhaler 2 puff inhalation QID PRN (Reason: Shortness Of Breath) fenofibrate 54 mg tablet 54 mg PO DAILY levothyroxine 100 mcg tablet 100 mcg PO DAILY metformin 1,000 mg tablet 1,000 mg PO BID nitroglycerin [Nitrostat] 0.4 mg Tablet, Sublingual 0.4 mg SUBLINGUAL Q5M PRN (Reason: Chest Pain) Rx Instructions: do not exceed 3 doses per episode oxybutynin chloride 10 mg tablet extended release 24hr 20 mg PO DAILY clopidogrel 75 mg tablet 75 mg PO DAILY gabapentin 800 mg tablet 800 mg PO TID duloxetine [Cymbalta] 60 mg capsule,delayed release(DR/EC) 60 mg PO DAILY promethazine 12.5 mg tablet 12.5 mg PO QID PRN (Reason: Nausea And Vomiting) oxycodone-acetaminophen 5-325 mg tablet 1 tab PO Q8H PRN (Reason: pain) Qty: 14 0RF sennosides-docusate sodium [Senna-S] 8.6-50 mg tablet 1 tab-cap PO DAILY Qty: 10 0RF amlodipine 10 mg tablet 10 mg PO DAILY Qty: 30 0RF losartan 100 mg tablet 100 mg PO DAILY Qty: 30 0RF ondansetron HCl 4 mg tablet 4 mg PO Q6H PRN (Reason: nausea and vomiting) Qty: 10 0RF meloxicam 7.5 mg tablet 7.5 mg PO DAILY lidocaine 5 % adhesive patch,medicated 1 patch topical DAILY PRN (Reason: Pain) Rx Instructions: on for 12 hours off for 12 hours Discontinued torsemide 5 mg tablet 5 mg PO DAILY Hold Instructions: Resume on 09/14/22. potassium chloride 10 mEq tablet extended release 10 meq PO DAILY Hold Instructions: Resume on 09/14/22. hydrochlorothiazide 25 mg tablet 25 mg PO DAILY Qty: 30 0RF metoprolol succinate 50 mg tablet extended release 24 hr 75 mg PO DAILY Discharge Orders: Discharge Order (Routine); Ordered 09/28/22 Ordered By: Jose F Leon Referrals: Brett Guallpa MD [Primary Care Provider] - 10/02/22 1:30 pm Patient Instructions: Opioid Safety Discharge Attestations Time Spent in Discharge Care*: greater than 30 min Quality Metrics Clinical Quality Measures [ No reported AMI, CVA or VTE this stay] Coding Level of Care Code Acute Code for Chg Fwd Diagnoses Acute hyponatremia E87.1
--- NOTE | 2022-09-28 14:07 | PM.PN ---
Subjective Subjective: no complaints Medications: Reviewed: Yes Vitals/I&O/Wt Last Vital Signs Temp 97.5 F L 09/28/22 11:48 Pulse 73 09/28/22 11:48 Resp 15 09/28/22 11:48 BP 157/76 09/28/22 11:48 Pulse Ox 97 09/28/22 11:48 O2 Del Method Room Air 09/28/22 11:48 O2 Flow Rate 5 09/27/22 20:00 09/27/22 09/28/22 09/28/22 22:59 06:59 14:59 Intake Total 480 / 1320 360 / 360 Output Total 300 / 475 300 / 775 Balance 180 / 845 -300 / 545 360 / 360 Weight last 48 hrs Weight 79.107 kg Physical Exam Narrative: Patient is awake alert, sitting up in a chair in no acute distress Urinary Catheter Management: Smyth: Cath Placed During This Visit: yes, but has since been removed by the nurse Reason for Continuing Indwelling Catheter: Decision to DC Catheter Urinary Catheter Date of Insertion: 09/24/22 Urinary Catheter Time of Insertion: 03:17 Date Urinary Catheter Removed: 09/25/22 Time Urinary Catheter Discontinued: 15:35 Data 09/27/22 02:28 09/28/22 03:27 A&P Assessment and plan (1) Acute hyponatremia: Plan 1. Hyponatremia: Likely multifactorial with SSRI use and hydrochlorothiazide use. Hypovolemic. Possible SIADH component. Prior urine osmolality was more than 300. It is unclear if patient is taking HCTZ but it is on her medication list. -Status post 3% saline briefly, sodium was 104 on presentation improved to 130 currently. . Urine Na was 10 and urine Osmolality is low - continue fluid restriction 1500 ml/day and urea tabs at in Patient evaluated using audiovisual cart. Time spent 30 minutes Attestations Medical Necessity Statement*: per medicine Coding Level of Care Code Acute Code for g Fwd Diagnoses Acute hyponatremia E87.1
== END 2022-09-28 12:35 | disposition home or self-care (01) | DRG 641 ==
LOC: ER 01:45 → ICU 02:10 → MEDSURG 09-26 15:19
PROVIDERS: Hospitalist; Internal Medicine; Admitting Provider Internal Medicine; Emergency Provider Emergency Medicine; PCP Family Medicine; Visit Provider Internal Medicine
DX: E87.1 Hypo-osmolality and hyponatremia (principal); J44.9 Chronic obstructive pulmonary disease, unspecified; E11.22 Type 2 diabetes mellitus with diabetic chronic kidney disease; I12.9 Hypertensive chronic kidney disease with stage 1 through stage 4 chronic kidney disease, or unspecified chronic kidney disease; N18.9 Chronic kidney disease, unspecified; Z87.891 Personal history of nicotine dependence; Z79.84 Long term (current) use of oral hypoglycemic drugs; E78.5 Hyperlipidemia, unspecified; E03.9 Hypothyroidism, unspecified; M32.9 Systemic lupus erythematosus, unspecified; I25.10 Atherosclerotic heart disease of native coronary artery without angina pectoris; Z95.5 Presence of coronary angioplasty implant and graft; F31.9 Bipolar disorder, unspecified; R91.1 Solitary pulmonary nodule; Z79.02 Long term (current) use of antithrombotics/antiplatelets; E83.42 Hypomagnesemia; Z98.1 Arthrodesis status; Z91.81 History of falling; N39.46 Mixed incontinence; E87.6 Hypokalemia; M06.9 Rheumatoid arthritis, unspecified; R00.1 Bradycardia, unspecified; I44.0 Atrioventricular block, first degree; G20 Parkinson's disease; S50.02XA Contusion of left elbow, initial encounter; W19.XXXA Unspecified fall, initial encounter; Y92.009 Unspecified place in unspecified non-institutional (private) residence as the place of occurrence of the external cause
CPT/HCPCS: 12345; 36415; 36416; 51702; 70450; 71045; 72170; 73080; 80048; 80053; 81003; 82140; 82533; 82962; 83735; 83930; 83935; 84295; 84300; 84443; 85025; 85610; 94640; 96372; 96374; 96376; 97116; 97161; 97530; 99284; 99285; J1650; J2270; J2405; J3475; J7030; J7131; J7613; P9046; Q3014

== ENCOUNTER → 2022-10-02 09:57 | Outpatient (BNVA) | payer MEDICARE, MEDICAID, SELFPAY | PROVIDERS: PCP Family Medicine; Visit Provider Specialist | DX: S42.202A Unspecified fracture of upper end of left humerus, initial encounter for closed fracture (principal); X58.XXXA Exposure to other specified factors, initial encounter | CPT/HCPCS: 73030; 99024 ==

== ENCOUNTER 2022-10-06 13:13 | Outpatient (CLI) | payer MEDICARE, MEDICAID, SELFPAY ==
--- NOTE | 2022-10-06 13:29 | USCV_ITS ---
Elyssa Daniels Age: 76 Gender: F : 1945 Exam Date: 10/06/2022 14:01 Ordering Phys: Sharad Esquivel MD Technologist: [place] [facility] [place] ef BP: 140 / 80 HR: 90 Rhythm: Sinus Technical Quality: Adequate MEASUREMENTS (Male / Female) Normal Values 2D ECHO LV Diastolic Diameter PLAX 2.9 cm 4.2 - 5.9 / 3.9 - 5.3 cm LV Systolic Diameter PLAX 1.6 cm IVS Diastolic Thickness 1.1 cm 0.6 - 1.0 / 0.6 - 0.9 cm IVS Systolic Thickness 1.6 cm LVPW Diastolic Thickness 1.2 cm 0.6 - 1.0 / 0.6 - 0.9 cm LVPW Systolic Thickness 1.5 cm LVOT Diameter 2.1 cm LV Ejection Fraction 2D Teich 79.6 % LV Ejection Fraction MOD 2C 69.8 % LV Ejection Fraction 2C AL 70.3 % LA Diameter 3.7 cm IVC Diameter 1.5 cm M-MODE Aortic Annulus Diameter 2.8 cm LA Ao Ratio MM 1.3 FINDINGS Left Ventricle Right Ventricle Right Atrium Left Atrium Mitral Valve Aortic Valve Tricuspid Valve Pulmonic Valve Pericardium Aorta IVC CONCLUSIONS This is a limited echocardiogram performed to assess LV systolic function. LV systolic function is normal with EF of 60 to 65%. No regional wall motion abnormalities are seen. Marco Lizama MD (Electronically Signed) Final Date: 06 October 2022 16:34 S
[2022-10-06 15:00] LABS: Urine Random Sodium 41 mmol/L
[2022-10-06 15:01] LABS: Blood Urea Nitrogen 12 mg/dL (8-23); Calcium 9.3 mg/dL (8.5-10.5); Carbon Dioxide 20 mmol/L (22-29); Chloride 95 mmol/L (98-107); Glucose 130 mg/dL (65-115); Osmolality Calculated 270 mOsm/kg (285-295); Sodium 129 mmol/L (136-145); Uric Acid 3.1 mg/dL (2.4-5.7)
[2022-10-06 15:03] LABS: Anion Gap 18.3 (5-19); Potassium 4.3 mmol/L (3.5-5.1)
[2022-10-07 09:46] LABS: PROTEIN, TOTAL 6.7 g/dL (6.1-8.1)
[2022-10-09 13:09] LABS: ALPHA 1 GLOBULIN 0.4 g/dL (0.2-0.3); ALPHA 2 GLOBULIN 0.8 g/dL (0.5-0.9); BETA 1 GLOBULIN 0.4 g/dL (0.4-0.6); BETA 2 GLOBULIN 0.3 g/dL (0.2-0.5); GAMMA GLOBULIN 0.8 g/dL (0.8-1.7)
[2022-10-09 14:14] LABS: Osmolality Serum 269 mOsm/kg (278-305)
[2022-10-09 14:14] LABS: Osmolality Urine 464 mOsm/kg (50-1200)
== END 2022-10-06 13:14 | disposition home or self-care (01) ==
PROVIDERS: PCP Family Medicine; Visit Provider Emergency Medicine
DX: I50.9 Heart failure, unspecified (principal); E87.1 Hypo-osmolality and hyponatremia; N18.32 Chronic kidney disease, stage 3b; R55 Syncope and collapse
CPT/HCPCS: 36415; 80048; 83930; 83935; 84155; 84165; 84300; 84550; 93308

== ENCOUNTER 2022-10-19 11:20 | Inpatient (IN) | payer MEDICARE, MEDICAID, SELFPAY ==
[2022-10-19] VITALS (15 sets, daily range): BP systolic 129–199; BP diastolic 57–108; PULSE 75–91; RESP 17–21; TEMP 36.6–37.1; O2SAT 92–98; BMI 28.6
[2022-10-19 12:39] LABS: Basophils % 0.9 %; Eosinophils % 0.3 %; Hematocrit 33.4 % (37.0-47.0); Hemoglobin 11.4 g/dL (11.5-15.3); Lymphocytes # 0.5 10^3/uL (0.8-4.8); Lymphocytes % 14.6 %; Mean Corpuscular HGB Conc 34.1 g/dL (30.0-36.0); Mean Corpuscular Hemoglobin 29.5 pg (28.0-34.0); Mean Corpuscular Volume 86.5 fl (81-99); Mean Platelet Volume 8.7 fL (7.4-10.4); Monocytes # 0.4 10^3/uL (0.2-0.9); Monocytes % 13.1 %; Neutrophils # 2.34 10^3/uL (1.8-7.7); Neutrophils % 71.1 %; Nucleated Red Blood Cells % 0 %; Platelet Count 227 10^3/cmm (130-400); Red Blood Count 3.86 10^6/uL (4.1-5.3); Red Cell Distribution Width 12.4 % (12.1-15.1); White Blood Count 3.3 10^3/uL (4.0-10.0)
[2022-10-19 12:56] LABS: Alanine Aminotransferase 15 U/L (0-33); Albumin Level 4.3 g/dL (3.5-5.2); Alkaline Phosphatase 81 U/L (35-105); Anion Gap 18.4 (5-19); Aspartate Amino Transferase 17 U/L (0-32); Blood Urea Nitrogen 7 mg/dL (8-23); Calcium 9.1 mg/dL (8.5-10.5); Carbon Dioxide 19 mmol/L (22-29); Chloride 85 mmol/L (98-107); Globulin 2.2 g/dL (1.3-4.6); Glucose 106 mg/dL (65-115); Magnesium 1.2 mg/dL (1.7-2.3); Osmolality Calculated 244 mOsm/kg (285-295); Potassium 4.4 mmol/L (3.5-5.1); Total Bilirubin 0.2 mg/dL (0.15-1.2); Total Protein 6.5 g/dL (6.6-8.7)
[2022-10-19 13:01] LABS: Sodium 118 mmol/L (136-145)
--- NOTE | 2022-10-19 13:34 | XRR_ITS ---
PROCEDURE INFORMATION: Exam: XR Chest Exam date and time: 10/19/2022 1:39 PM Age: 77 years old Clinical indication: Condition or disease; Other: Hyponatremia; Prior surgery; Surgery date: 6+ months; Surgery type: --breast reduction, coronary angioplasty w/ stents TECHNIQUE: Imaging protocol: Radiologic exam of the chest. Views: 1 view. COMPARISON: CR (CHEST, ) 09/24/2022 12:36 AM FINDINGS: Lungs: Minimal bilateral linear basilar atelectasis or fibrosis. Pleural spaces: Unremarkable. No pleural effusion. No pneumothorax. Heart/Mediastinum: Unremarkable. No cardiomegaly. Bones/joints: Unremarkable. XR/XR chest 1V portable [id number] IMPRESSION: Minimal bilateral linear basilar atelectasis or fibrosis. No significant change.
--- NOTE | 2022-10-19 13:37 | W.ED.RECABL ---
HPI - Recheck/Abnormal Lab/Rx General: Chief Complaint: Recheck/Abnormal Lab/Rx Stated Complaint: sent by [email or web address] labs Time Seen by Provider: 10/19/22 12:38 History of Present Illness: This patient is a 77 year old presenting at the direction of her PCP - Dr. Guallpa - due to an extremely low sodium level. The patient was admitted last month with a sodium of 105. She was treated for that in the hospital, and home medications were adjusted with her HCTZ and torsemide being held. She was started on urea-Na and put on fluid restriction. She comes into today saying that she feels fine and nothing has changed in terms of her medications or her water intake. She says that her therapist told her she could drink 3 bottles of water a day. She immediately asked me for water when I came in the room to evaluate her. She does tell me that she has had vomiting and diarrhea for the past two weeks. She says that she throws up after everything that she eats. She denies abdominal pain or cramping. She can't really be specific about whether this is happening every day. PFSH ED PFSH: Medical History Acute hyperkalemia Acute hyponatremia Acute hyponatremia Acute renal insufficiency Alcohol use disorder in remission Amphetamine use disorder, moderate, in sustained remission ZAY positive Bipolar disorder, in partial remission, most recent episode manic Cannabis use disorder, mild, in sustained remission, abuse Cervicalgia Chronic kidney disease (CKD) Chronic obstructive pulmonary disease Closed left humeral fracture Contusion of elbow, right Coronary artery disease Patient with stents Diabetes mellitus Dyspnea on exertion Fall Hyperlipidemia Hypertension Hypothyroidism Incidental pulmonary nodule, > 3mm and < 8mm Left rib fracture Lupus Major depressive disorder, recurrent, in partial remission Mass of right lung Follow-up of previous CAT scan Nicotine dependence, cigarettes, in remission Orofacial dyskinesia Parkinsonian tremor Psychiatric care Rheumatoid arthritis SS-A antibody positive Tardive dyskinesia Tobacco use disorder, mild, in sustained remission Urinary Incontinence Weakness Surgical History History of back surgery (01/17/13) History of bilateral breast reduction surgery History of bilateral tubal ligation History of bladder surgery (~1989) Vaginal Urethral sling with possible anchors . [place] [facility] [place] History of cholecystectomy History of colonoscopy with polypectomy (~04/20/20) 2017 History of coronary angioplasty with insertion of stent 2006: 2 stents. 2008: 2 stents. History of dilation and curettage (~1982) History of hand surgery Repair right thumb fracture History of hemorrhoidectomy History of right cataract extraction History of vaginal hysterectomy Still has ovaries. Performed in [place], [place]. Performed due to bleeding. Family History Brother Heart disease Hypertension Hypercholesteremia Diabetes Sister Thyroid condition Social History Smoking and tobacco status: former smoker Smoking risk assessment/counseling performed?: No Counseling given: No Substance/Drug Use: never Counseling given: No Lives independently: Yes Household members: none Marital status: Current occupational status: disabled Do you think of yourself as: Straight/Heterosexual Current gender identity: Female Physical Exam Const: COMMON NORMALS: no acute distress, patient oriented x3 and alert GENERAL APPEARANCE: cooperative and comfortable OTHER: seems to have trouble answering specific questions - slightly confused? HENMT: HEAD & SCALP: normal to inspection FACE & SINUS: normal facial exam Eye: GENERAL EYE: appearance normal, both eyes and all related structures Neck/C-Spine: COMMON NORMALS: supple, no meningeal signs and no JVD Chest: COMMONS NORMALS: normal inspection of the chest Resp: COMMON NORMALS: normal respiratory effort, No use of accessory muscles and clear to auscultation bilaterally AUSCULTATION: clear to auscultation bilaterally Cardio: COMMON NORMALS: no JVD, regular rate, regular rhythm and No murmurs present (Cardio) RATE: regular rate RHYTHM: regular rhythm GI: COMMON NORMALS: Normal to inspection, nondistended, normoactive bowel sounds present, Soft to palpation and non-tender INSPECTION: Yes normal to inspection AUSCULTATION: Yes normoactive bowel sounds PALPATION: Yes Soft to palpation Back/Pelvis: COMMON NORMALS: thoracic and lumbar spine normal to inspection Extremity: COMMON NORMALS: normal to inspection (except the left arm which is in a shoulder immobilizer) Neuro: COMMON NORMALS: patient oriented x3, moves all extremities, no focal motor deficits and no sensory deficits noted SENSORIUM/ORIENTATION: Yes alert MENINGEAL SIGNS: Yes no meningeal signs Psych: COMMON NORMALS: mental status grossly normal, cooperative and normal affect Skin: COMMON NORMALS: no rashes or lesions noted and turgor normal GENERAL SKIN EXAM: no rashes or lesions noted and turgor normal Course Vital Signs: Vital signs: Vital Signs Temperature 97.9 F 10/19/22 20:00 Pulse Rate 77 10/19/22 22:00 Respiratory Rate 17 10/19/22 20:00 Blood Pressure 130/67 10/19/22 20:00 Pulse Oximetry 95 10/19/22 20:00 Oxygen Delivery Me thod Room Air 10/19/22 20:00 MDM - Recheck/Abnormal Lab/Rx Medical Decision Making Sent to the ED for a low sodium on labs that were drawn two days ago (per patient). The last sodium in our records was 129 over a week ago. She has had vomiting and diarrhea, and this could be causing some sodium loss - or I suspect she is not compliant with her water limitation. We will go over her med list in detail to make sure that she is not taking medications she was supposed to stop. Magnesium is also low - will replace IV and also given a liter of NS. Limiting water intake in the ED. Patient will be admitted for further management of her hyponatremia. I spoke to a nurse at [facility] and the patient's lab - done yesterday - showed a sodium of 120. Lab Data 10/19/22 12:28 10/19/22 18:11 Radiology Impressions Chest X-Ray 10/19/22 13:34 IMPRESSION: Minimal bilateral linear basilar atelectasis or fibrosis. No significant change. Laboratory Results WBC 3.3 10^3/uL (4.0-10.0) L 10/19/22 12:28 RBC 3.86 10^6/uL (4.1-5.3) L 10/19/22 12:28 Hgb 11.4 g/dL (11.5-15.3) L 10/19/22 12:28 Hct 33.4 % (37.0-47.0) L 10/19/22 12:28 MCV 86.5 fl (81-99) 10/19/22 12:28 MCH 29.5 pg (28.0-34.0) 10/19/22 12:28 MCHC 34.1 g/dL (30.0-36.0) 10/19/22 12:28 RDW 12.4 % (12.1-15.1) 10/19/22 12:28 Plt Count 227 10^3/cmm (130-400) 10/19/22 12:28 MPV 8.7 fL (7.4-10.4) 10/19/22 12:28 Neut % (Auto) 71.1 % 10/19/22 12:28 Lymph % (Auto) 14.6 % 10/19/22 12:28 [place] % (Auto) 13.1 % 10/19/22 12:28 Eos % (Auto) 0.3 % 10/19/22 12:28 Baso % (Auto) 0.9 % 10/19/22 12:28 Neut # (Auto) 2.34 10^3/uL (1.8-7.7) 10/19/22 12:28 Lymph # (Auto) 0.5 10^3/uL (0.8-4.8) L 10/19/22 12:28 [place] # (Auto) 0.4 10^3/uL (0.2-0.9) 10/19/22 12:28 Eos # (Auto) 0.0 10^3/uL (0.0-0.8) 10/19/22 12:28 Baso # (Auto) 0.0 10^3/uL (0.0-0.1) 10/19/22 12:28 Nucleated RBC % (auto) 0 % 10/19/22 12:28 Nucleated RBCs # 0.0 /100WBC 10/19/22 12:28 Sodium 118 mmol/L (136-145) L* 10/19/22 12:28 Potassium 4.4 mmol/L (3.5-5.1) 10/19/22 12:28 Chloride 85 mmol/L (98-107) L 10/19/22 12:28 Carbon Dioxide 19 mmol/L (22-29) L 10/19/22 12:28 Anion Gap 18.4 (5-19) 10/19/22 12:28 BUN 7 mg/dL (8-23) L 10/19/22 12:28 Creatinine 0.7 mg/dL (0.5-0.9) 10/19/22 12:28 GFR Calculation Not Reportable 10/19/22 12:28 Glucose 106 mg/dL (65-115) 10/19/22 12:28 Calculated Osmolality 244 mOsm/kg (285-295) L 10/19/22 12:28 Calcium 9.1 mg/dL (8.5-10.5) 10/19/22 12:28 Magnesium 1.2 mg/dL (1.7-2.3) L 10/19/22 12:28 Total Bilirubin 0.2 mg/dL (0.15-1.2) 10/19/22 12:28 AST 17 U/L (0-32) 10/19/22 12:28 ALT 15 U/L (0-33) 10/19/22 12:28 Alkaline Phosphatase 81 U/L (35-105) 10/19/22 12:28 Total Protein 6.5 g/dL (6.6-8.7) L 10/19/22 12:28 Albumin 4.3 g/dL (3.5-5.2) 10/19/22 12:28 Globulin 2.2 g/dL (1.3-4.6) 10/19/22 12:28 TSH 0.88 uIU/mL (0.27-4.20) 10/19/22 12:28 Discharge Plan Discharge Patient Disposition: Admitted As Inpatient Admit Provider: Lincoln Gilbert Clinical Impression: Hypomagnesemia, Hyponatremia Condition: Stable Coding Level of Care Code ED Pump Service Supervisor for Aicha Jean Baptiste
[2022-10-19] MEDS: sodium chloride 0.9% 1,000 ML 999 ML IV (13:48)
--- NOTE | 2022-10-19 13:48 | ECG_ITS ---
[facility] Test Date: 2022-10-19 Pat Name: Elyssa Daniels Department: Room: Gender: Female Clinical Cytopathologist: : 1945 Requested By: Faiza Taylor Order Number: [id number] Pankaj MD: Marco Lizama M.D. Measurements Intervals [place] Rate: 83 P: 78 NV: 223 QRS: 19 QRSD: 87 T: 82 QT: 354 QTc: 418 Interpretive Statements SINUS RHYTHM WITH FIRST DEGREE AV BLOCK MODERATE ST DEPRESSION [0.05+ mV ST DEPRESSION] Compared to ECG 09/05/2022 18:36:15 Left anterior fascicular block no longer present ST (T wave) deviation still present Electronically Signed On 10-19-2022 14:43:00 CDT by Marco Lizama M.D. [id number]
[2022-10-19] MEDS: magnesium sulfate premix 2 GM/50 ML PIGGYBACK IV (13:49)
[2022-10-19 14:12] LABS: Thyroid Stimulating Hormone 0.88 uIU/mL (0.27-4.20)
--- NOTE | 2022-10-19 16:38 | P.HP_ITS ---
Providers/Chief Complaint Admitting Physician: Lincoln Gilbert Primary Care Provider: Brett Guallpa MD Chief Complaint: sent by mukesh/abn labs History of Present Illness 77-year-old lady with extensive medical history, recent admission due to severe hyponatremia down to sodium 105, received treatment with hypertonic saline, fluid restriction, urea tablets, sodium gradually improved. On discharge HCTZ, torsemide were discontinued. Due to bradycardia metoprolol was discontinued. She was started on hydralazine. She states that she was doing all right afterward, and that the reason she is in ER currently is because she got a cold about her sodium being low again. In ER noted sodium of 118. She is not entirely sure regarding her medications, but thinks that she does not take HCTZ, she states that medications are being managed by a visiting nurse with home health once weekly. She states that they should be aware of the discharge orders from the prior hospitalization. She does state that she has been having multiple episodes of watery diarrhea over the last couple weeks. Denies vomiting. No abdominal pain. He does state that she drinks about 3 bottles of water in a day. Denies having had any recent falls. She walks with a walker at home. She is wearing LUE immobilizer but states that she manages with her walker with one arm. Review of Systems Const: Denies: fever(s), chills, body aches or malaise ENMT: Denies: throat pain Card: Denies: chest pain, edema, pre-syncope or dyspnea on exertion Resp: Denies: dyspnea, productive cough, change in phlegm color or hemoptysis GI: Reports: diarrhea; Denies: abdominal pain, nausea, vomiting, constipation, hematochezia or melena : Denies: flank pain, urinary frequency or hematuria Musc: Denies: back pain, joint swelling or joint redness Skin/Breast: Denies: rash or new lesions Neuro: Denies: headache(s), numbness in extremities, weakness in extremities, dizziness, confusion or seizure-like activity Endo: Denies: polyuria Medications/Allergies Home Medications Medication Instructions Recorded Confirmed Last Taken Type atorvastatin 80 mg tablet (Lipitor) 80 mg PO DAILY 06/03/19 10/19/22 09/03/20 History cholecalciferol (vitamin D3) 50 50 mcg PO DAILY 12/03/0510/19/22 09/03/20 History mcg (2,000 unit) capsule albuterol sulfate 90 mcg/actuation 2 puff inhalation QID PRN 09/03/20 10/19/22 Unknown History aerosol inhaler (Ventolin HFA) Shortness Of Breath fenofibrate 54 mg tablet 54 mg PO DAILY 09/03/20 10/19/22 09/03/20 History budesonide 160 mcg-glycopyr 9 2 inh inhalation BID 30 days #10.7 11/22/20 10/19/22 Unknown Rx mcg-formot 4.8 mcg/actuation HFA grams inhaler (Breztri Aerosphere) docusate sodium 100 mg capsule 100 mg PO BID PRN Constipation 03/14/21 10/19/22 Unknown History (Colace) ropinirole 2 mg tablet 2 mg PO BEDTIME 03/14/21 10/19/22 Unknown History hydroxychloroquine 200 mg tablet 200 mg PO BID #60 tabs 08/01/21 10/19/22 Unknown Rx carbamazepine 200 mg tablet 200 mg PO BID #60 tabs 08/31/21 10/19/22 Unknown Rx diabetic shoes with 3 pairs inserts #1 ea 05/22/22 10/19/22 Unknown Rx valbenazine 80 mg capsule 80 mg PO DAILY #30 caps 08/03/22 10/19/22 Unknown Rx (Ingrezza) clopidogrel 75 mg tablet 75 mg PO DAILY 09/06/22 10/19/22 Unknown History duloxetine 60 mg capsule,delayed 60 mg PO DAILY 09/06/22 10/19/22 Unknown History release (Cymbalta) gabapentin 800 mg tablet 800 mg PO TID 09/06/22 10/19/22 Unknown History levothyroxine 100 mcg tablet 100 mcg PO DAILY 09/06/22 10/19/22 Unknown History metformin 1,000 mg tablet 1,000 mg PO BID 09/06/22 10/19/22 Unknown History nitroglycerin 0.4 mg sublingual 0.4 mg sublingual Q5M PRN Chest 09/06/22 10/19/22 Unknown History tablet (Nitrostat) Pain oxybutynin chloride 10 mg 20 mg PO DAILY Overactive bladder, 09/06/22 10/19/22 Unknown History tablet,extended release 24 hr incontinence promethazine 12.5 mg tablet 12.5 mg PO QID PRN Nausea And 09/06/22 10/19/22 Unknown History Vomiting amlodipine 10 mg tablet 10 mg PO DAILY #30 tabs 09/07/22 10/19/22 Unknown Rx losartan 100 mg tablet 100 mg PO DAILY #30 tabs 09/07/22 10/19/22 09/03/20 Rx sennosides 8.6 mg-docusate sodium 1 tab-cap PO DAILY #10 tabs 09/07/22 10/19/22 Unknown Rx 50 mg tablet (Senna-S) hydralazine 50 mg tablet 50 mg PO BID #60 tabs 09/28/22 10/19/22 Unknown Rx urea 15 gram oral powder packet 1 packet PO DAILY #8 ea 09/28/22 10/19/22 Unknown Rx (Ure-Na) hydrochlorothiazide 25 mg tablet 1 tab PO DAILY 10/02/22 10/19/22 Unknown History metoprolol succinate 50 mg 1 tab PO DAILY 10/02/22 10/19/22 Unknown History tablet,extended release 24 hr potassium chloride 10 mEq 1 cap PO DAILY 10/02/22 10/19/22 Unknown History capsule,extended release Allergies Allergy/AdvReac Type Severity Reaction Status Date / Time cephalexin [From Keflex] Allergy Mild ADR-Itching Verified 10/19/22 11:35 PFSH Acute PFSH: Medical History Acute hyperkalemia Acute hyponatremia Acute hyponatremia Acute renal insufficiency Alcohol use disorder in remission Amphetamine use disorder, moderate, in sustained remission ZAY positive Bipolar disorder, in partial remission, most recent episode manic Cannabis use disorder, mild, in sustained remission, abuse Cervicalgia Chronic kidney disease (CKD) Chronic obstructive pulmonary disease Closed left humeral fracture Contusion of elbow, right Coronary artery disease Patient with stents Diabetes mellitus Dyspnea on exertion Fall Hyperlipidemia Hypertension Hypothyroidism Incidental pulmonary nodule, > 3mm and < 8mm Left rib fracture Lupus Major depressive disorder, recurrent, in partial remission Mass of right lung Follow-up of previous CAT scan Nicotine dependence, cigarettes, in remission Orofacial dyskinesia Parkinsonian tremor Psychiatric care Rheumatoid arthritis SS-A antibody positive Tardive dyskinesia Tobacco use disorder, mild, in sustained remission Urinary Incontinence Weakness Surgical History History of back surgery (01/17/13) History of bilateral breast reduction surgery History of bilateral tubal ligation History of bladder surgery (~1989) Vaginal Urethral sling with possible anchors . Performed by Dr. Salas at [facility] [place]. History of cholecystectomy History of colonoscopy with polypectomy (~04/20/20) 2017 History of coronary angioplasty with insertion of stent 2006: 2 stents. 2008: 2 stents. History of dilation and curettage (~1982) History of hand surgery Repair right thumb fracture History of hemorrhoidectomy History of right cataract extraction History of vaginal hysterectomy Still has ovaries. Performed in [place], [place]. Performed due to bleeding. Family History Brother Heart disease Hypertension Hypercholesteremia Diabetes Sister Thyroid condition Social History Smoking and tobacco status: former smoker Smoking risk assessment/counseling performed?: No Counseling given: No Substance/Drug Use: never Counseling given: No Lives independently: Yes Household members: none Marital status: Current occupational status: disabled Do you think of yourself as: Straight/Heterosexual Current gender identity: Female Vitals/I&O/Wt Last Vital Signs Temp 98.4 F 10/19/22 11:30 Pulse 75 10/19/22 15:30 Resp 18 10/19/22 11:30 BP 141/61 10/19/22 15:30 Pulse Ox 93 10/19/22 15:30 O2 Del Method Room Air 10/19/22 15:30 10/19/22 10/19/22 10/19/22 06:59 14:59 22:59 Intake Total 1050 / 1050 Balance 1050 / 1050 Weight last 48 hrs Weight 78.018 kg Physical Exam Const: COMMON NORMALS: patient oriented x3 and alert GENERAL APPEARANCE: c ooperative ORIENTATION/CONSCIOUSNESS: Yes awake HENMT: COMMON NORMALS: oropharynx normal Neck/C-Spine: COMMON NORMALS: no JVD Resp: COMMON NORMALS: normal respiratory effort and clear to auscultation bilaterally AUSCULTATION: clear to auscultation bilaterally Cardio: COMMON NORMALS: no JVD, regular rhythm, S1 normal heart sound present, S2 normal heart sound present and No murmurs present (Cardio) RHYTHM: regular rhythm HEART SOUNDS: S1 normal heart sound present and S2 normal heart sound present GI: COMMON NORMALS: Normal to inspection, nondistended, normoactive bowel sounds present, Soft to palpation and non-tender PALPATION: Yes Soft to palpation Extremity: COMMON NORMALS: no joint enlargement and no pedal edema OTHER: LUE immobilizer Neuro: COMMON NORMALS: patient oriented x3 SENSORIUM/ORIENTATION: Yes alert OTHER: Unsteady gait without a walker, requiring 1 person assist walking to the restroom. Data 10/19/22 12:28 10/19/22 12:28 A&P Assessment and plan (1) Hyponatremia: Severe hyponatremia, sodium 118. Last time suspected hypervolemic hyponatremia, diuretics were discontinued, including HCTZ, torsemide, at discharge. It is not entirely clear that she does not take them, but she states that her medications are being managed by home health nurse and that they should be aware of the rec ommended changes. She has been having diarrhea for about 2 weeks, additionally says that she still drinks about 3 bottles of water a day. This may be the cause of current hyponatremia. She does also take carbamazepine which may be contributing along with her water intake. She has so far received a fluid bolus in ER. Will hold off additional fluids currently, recheck sodium level, as she is at risk of overcorrection, consider starting on urea tablets depending on level. Regular diet. Monitor sodium closely, at risk of more severe hyponatremia given prior admission, additionally chronicity unknown, possibly chronic hyponatremia, avoid overly rapid rise. Fall precautions. Up with assist. PT assessment. (2) Goals of care, counseling/discussion: With regards to CODE STATUS she states would want to be full code in case of cardiopulmonary arrest. In terms of surrogate decision-maker in case could not make her own decisions he names her roommate as surrogate. Does not have formal DPOA paperwork, would be interested in filling it out. We will request case management consultation. (3) Hypomagnesemia: Severe hypomagnesemia, was given replacement in the ER. Follow-up magnesium level. (4) Diarrhea: Requesting stool studies including bacterial and parasite panels, C. difficile. Plan List home medications. ER documentation reviewed. Discussed with ER physician. Attestations Medical Necessity Statement*: Admission of over 2 midnights anticipated for assessment management of severe hyponatremia. Diagnoses Hyponatremia E87.1 Goals of care, counseling/discussion Z71.89 Hypomagnesemia E83.42 Diarrhea R19.7
--- NOTE | 2022-10-19 17:24 | PC.NURSE ---
Attempted to give report twice to CSU, nurse busy and said she would call back.
[2022-10-19 19:02] LABS: Sodium 120 mmol/L (136-145)
[2022-10-20] MEDS: acetaminophen 325 mg Tablet 650 MG PO ×2 (02:44→22:28)
[2022-10-20 03:29] VITALS: BP 152/81; PULSE 94; RESP 16; O2SAT 93
[2022-10-20 03:57] LABS: Basophils % 0.8 %; Eosinophils % 1.1 %; Hematocrit 29.5 % (37.0-47.0); Hemoglobin 10.2 g/dL (11.5-15.3); Lymphocytes # 0.3 10^3/uL (0.8-4.8); Lymphocytes % 10.9 %; Mean Corpuscular HGB Conc 34.6 g/dL (30.0-36.0); Mean Corpuscular Hemoglobin 29.9 pg (28.0-34.0); Mean Corpuscular Volume 86.5 fl (81-99); Mean Platelet Volume 9.1 fL (7.4-10.4); Monocytes # 0.3 10^3/uL (0.2-0.9); Monocytes % 10.2 %; Neutrophils # 2.04 10^3/uL (1.8-7.7); Neutrophils % 76.6 %; Nucleated Red Blood Cells % 0 %; Platelet Count 192 10^3/cmm (130-400); Red Blood Count 3.41 10^6/uL (4.1-5.3); Red Cell Distribution Width 12.4 % (12.1-15.1); White Blood Count 2.7 10^3/uL (4.0-10.0)
[2022-10-20 04:26] LABS: Anion Gap 14.3 (5-19); Blood Urea Nitrogen 6 mg/dL (8-23); Calcium 8.5 mg/dL (8.5-10.5); Carbon Dioxide 21 mmol/L (22-29); Chloride 89 mmol/L (98-107); Glucose 86 mg/dL (65-115); Magnesium 1.5 mg/dL (1.7-2.3); Osmolality Calculated 247 mOsm/kg (285-295); Potassium 4.3 mmol/L (3.5-5.1); Sodium 120 mmol/L (136-145)
[2022-10-20 05:04] VITALS: PULSE 85
--- NOTE | 2022-10-20 06:37 | PC.NURSE ---
Called report to Nazanin MCKAY on medsurg. Patient will be transfered to 2nd floor room 251-1 via wheelchair with her chart and all personal belongings.
[2022-10-20 07:50] LABS: Urine Appearance Cloudy (CLEAR); Urine Color Straw (Yellow)
[2022-10-20 07:51] LABS: Add Urine Microscopic? YES; Bilirubin Urine Neg (Negative); Blood Urine Neg (Negative); Glucose Urine UA Norm (Normal); Ketones Urine Negative (Negative); Leukocyte Esterase Urine 2+ (Negative); Nitrate Urine Positive (Negative); Protein Urine Neg (Negative); Specific Gravity, Urine 1.005 (1.005-1.030); Urobilinogen Urine Norm (Negative); pH Urine 7 (5-7)
[2022-10-20 07:52] LABS: Add Urine Culture? Yes; Bacteria Urine 3+ /hpf; RBC Urine 0-4 /hpf (0-2); Squamous Epithelial Cell Urine 0-4 /hpf (0-5); WBC Urine >100 /hpf (0-5)
[2022-10-20 08:00] VITALS: BP 150/78; PULSE 79; RESP 16; TEMP 36.7; O2SAT 96
[2022-10-20] MEDS: clopidogrel 75 mg Tablet PO (10:03)
[2022-10-20] MEDS: urea 15 gm Powder PO (10:03)
[2022-10-20] MEDS: magnesium sulfate premix 4 GM/100 ML PREMIX IV (10:03)
[2022-10-20 12:00] VITALS: BP 150/73; PULSE 75; RESP 18; TEMP 36.8; O2SAT 96
[2022-10-20] MEDS: ciprofloxacin 400 MG/200 ML PREMIX 200 MG IV ×2 (12:58→23:17)
[2022-10-20 16:00] VITALS: BP 146/73; PULSE 83; RESP 18; TEMP 36.6; O2SAT 96
[2022-10-20 20:00] VITALS: BP 169/77; PULSE 85; RESP 17; TEMP 37; O2SAT 94
--- NOTE | 2022-10-20 21:05 | PM.PN ---
Subjective Subjective: She states is not doing well this morning since her hemiwalker may have gotten lost, she states that it was brought into the ER room at the end of her stay there. She otherwise denies pain or discomfort. Vitals/I&O/Wt Last Vital Signs Temp 98.6 F 10/20/22 20:00 Pulse 85 10/20/22 20:00 Resp 17 10/20/22 20:00 BP 169/77 10/20/22 20:00 Pulse Ox 94 10/20/22 20:00 O2 Del Method Room Air 10/20/22 20:00 10/20/22 10/20/22 10/20/22 06:59 14:59 22:59 Intake Total 60 / 1170 540 / 540 240 / 780 Balance 60 / 1170 540 / 540 240 / 780 Weight last 48 hrs Weight 78.018 kg Physical Exam Const: COMMON NORMALS: patient oriented x3 and alert GENERAL APPEARANCE: cooperative ORIENTATION/CONSCIOUSNESS: Yes awake HENMT: COMMON NORMALS: oropharynx normal Neck/C-Spine: COMMON NORMALS: no JVD Resp: COMMON NORMALS: normal respiratory effort and clear to auscultation bilaterally AUSCULTATION: clear to auscultation bilaterally Cardio: COMMON NORMALS: no JVD, regular rhythm, S1 normal heart sound present, S2 normal heart sound present and No murmurs present (Cardio) RHYTHM: regular rhythm HEART SOUNDS: S1 normal heart sound present and S2 normal heart sound present GI: COMMON NORMALS: Normal to inspection, nondistended, normoactive bowel sounds present, Soft to palpation and non-tender PALPATION: Yes Soft to palpation Extremity: COMMON NORMALS: no joint enlargement and no pedal edema OTHER: LUE immobilizer Neuro: COMMON NORMALS: patient oriented x3 SENSORIUM/ORIENTATION: Yes alert Data 10/20/22 02:42 10/20/22 02:42 Micro: Microbiology 10/19/22 20:32 Enteric Pathogens (PCR) - Final Stool - Stool Aspirate Parasite Antigen Panel - Final C.difficile Toxin B Gene (PCR) - Final A&P Assessment and plan (1) Hyponatremia: Severe hyponatremia with noted mild improvement up to 120. Start urea tablets. Continue regular diet. Follow-up sodium level. Due to risk of cerebral edema. Rapid overcorrection may pose risk to neurologic function from OTS.. Withhold diuretics. Discussed with her could be secondary to carbamazepine with water intoxication. Monitor sodium closely, at risk of more severe hyponatremia given prior admission, additionally chronicity unknown, possibly chronic hyponatremia, avoid overly rapid rise. Fall precautions. Up with assist. Discussed with PT and case management. (2) Goals of care, counseling/discussion: With regards to CODE STATUS she states would want to be full code in case of cardiopulmonary arrest. In terms of surrogate decision-maker in case could not make her own decisions he names her roommate as surrogate. Does not have formal DPOA paperwork, would be interested in filling it out. We will request case management consultation. (3) Hypomagnesemia: Noted again hypomagnesemia, magnesium 1.5. Given replacement. Recheck magnesium level. (4) Diarrhea: Stool sample obtained. Noted negative for C. difficile, negative bacterial panel. Negative parasite panel. (5) UTI (urinary tract infection): Discussed with her. Allergy to cephalosporin. Started on ciprofloxacin. Plan List home medications. Maintain fall precautions. Attestations Medical Necessity Statement*: Continue admission for assessment management of severe hyponatremia. Diagnoses Hyponatremia E87.1 Goals of care, counseling/discussion Z71.89 Hypomagnesemia E83.42 Diarrhea R19.7 UTI (urinary tract infection) N39.0
[2022-10-21] VITALS (11 sets, daily range): BP systolic 169–187; BP diastolic 73–85; PULSE 72–96; RESP 15–17; TEMP 36.6–37; O2SAT 93–98
[2022-10-21 05:35] LABS: Eosinophils # 0.1 10^3/uL (0.0-0.8); Eosinophils % 2.5 %; Hemoglobin 11.2 g/dL (11.5-15.3); Lymphocytes # 0.4 10^3/uL (0.8-4.8); Lymphocytes % 19.3 %; Mean Corpuscular HGB Conc 33.9 g/dL (30.0-36.0); Mean Corpuscular Hemoglobin 30.4 pg (28.0-34.0); Mean Corpuscular Volume 89.7 fl (81-99); Mean Platelet Volume 8.8 fL (7.4-10.4); Monocytes # 0.4 10^3/uL (0.2-0.9); Monocytes % 17.8 %; Neutrophils # 1.16 10^3/uL (1.8-7.7); Neutrophils % 58.9 %; Nucleated Red Blood Cells % 0 %; Platelet Count 176 10^3/cmm (130-400); Red Blood Count 3.68 10^6/uL (4.1-5.3); Red Cell Distribution Width 12.5 % (12.1-15.1)
[2022-10-21 05:48] LABS: Blood Urea Nitrogen 10 mg/dL (8-23); Calcium 8.5 mg/dL (8.5-10.5); Carbon Dioxide 22 mmol/L (22-29); Chloride 93 mmol/L (98-107); Glucose 113 mg/dL (65-115); Osmolality Calculated 260 mOsm/kg (285-295); Sodium 125 mmol/L (136-145)
[2022-10-21 05:50] LABS: Anion Gap 14.1 (5-19); Potassium 4.1 mmol/L (3.5-5.1)
[2022-10-21 06:02] LABS: Magnesium 1.9 mg/dL (1.7-2.3)
[2022-10-21] MEDS: acetaminophen 325 mg Tablet 650 MG PO ×2 (06:53→18:06)
[2022-10-21] MEDS: urea 15 gm Powder PO ×2 (07:54→18:06)
[2022-10-21] MEDS: clopidogrel 75 mg Tablet PO (07:54)
[2022-10-21] MEDS: ciprofloxacin 400 MG/200 ML PREMIX 200 MG IV (12:37)
[2022-10-21] MEDS: zinc oxide oint 30 gm 1 APPLIC TOPICAL ×2 (15:12→16:37)
--- NOTE | 2022-10-21 20:35 | P.PN_ITS ---
Subjective Subjective: Her walker has been located which she is happy about. Urea powder tastes badly. Vitals/I&O/Wt Last Vital Signs Temp 98.6 F 10/21/22 19:48 Pulse 78 10/21/22 19:48 Resp 17 10/21/22 19:48 BP 183/81 10/21/22 19:48 Pulse Ox 96 10/21/22 19:48 O2 Del Method Room Air 10/21/22 19:48 10/21/22 10/21/22 10/21/22 06:59 14:59 22:59 Intake Total 200 / 980 200 / 200 Balance 200 / 980 200 / 200 Physical Exam Const: COMMON NORMALS: patient oriented x3 and alert GENERAL APPEARANCE: cooperative ORIENTATION/CONSCIOUSNESS: Yes awake HENMT: COMMON NORMALS: oropharynx normal Neck/C-Spine: COMMON NORMALS: no JVD Resp: COMMON NORMALS: normal respiratory effort and clear to auscultation bilaterally AUSCULTATION: clear to auscultation bilaterally Cardio: COMMON NORMALS: no JVD, regular rhythm, S1 normal heart sound present, S2 normal heart sound present and No murmurs present (Cardio) RHYTHM: regular rhythm HEART SOUNDS: S1 normal heart sound present and S2 normal heart sound present GI: COMMON NORMALS: Normal to inspection, nondistended, normoactive bowel sounds present, Soft to palpation and non-tender PALPATION: Yes Soft to palpation Extremity: COMMON NORMALS: no joint enlargement and no pedal edema OTHER: LUE immobilizer Neuro: COMMON NORMALS: patient oriented x3 SENSORIUM/ORIENTATION: Yes alert OTHER: Walking with standby assist with a hemiwalker. Data 10/21/22 04:36 10/21/22 04:36 Micro: Microbiology 10/20/22 06:43 Urine Culture - Preliminary Urine,Clean Catch Gram Negative Rods A&P Assessment and plan (1) Hyponatremia: Hyponatremia with gradual improvement, sodium today up to 125. Increase urea to twice daily. Follow-up sodium level. Continue regular diet. Rapid overcorrection may pose risk to neurologic function from ODS. Withhold diuretics. Discussed with her could be secondary to carbamazepine with water intoxication. Monitor sodium closely, at risk of more severe hyponatremia given prior admission, additionally chronicity unknown, possibly chronic hyponatremia, avoid overly rapid rise. Fall precautions. PT documentation appreciated. Discussed case management. (2) Goals of care, counseling/discussion: With regards to CODE STATUS she states would want to be full code in case of cardiopulmonary arrest. In terms of surrogate decision-maker in case could not make her own decisions he names her roommate as surrogate. Does not have formal DPOA paperwork, would be interested in filling it out. We will request case management consultation. (3) Hypomagnesemia: Noted again hypomagnesemia, magnesium 1.5. Given replacement. Recheck magnesium level. (4) Diarrhea: Stool sample obtained. Noted negative for C. difficile, negative bacterial p ashley. Negative parasite panel. (5) UTI (urinary tract infection): Urine culture with gram-negative rods, more than 100,000 CFU. Follow-up Ciprofloxacin. Plan List home medications. Maintain fall precautions. Attestations Medical Necessity Statement*: Continue admission for assessment management of severe hyponatremia. Diagnoses Hyponatremia E87.1 Goals of care, counseling/discussion Z71.89 Hypomagnesemia E83.42 Diarrhea R19.7 UTI (urinary tract infection) N39.0
[2022-10-21] MEDS: ropinirole 2 mg Tablet PO (21:19)
[2022-10-21] MEDS: amlodipine 5 mg Tablet PO (21:19)
[2022-10-21] MEDS: gabapentin 400 mg Capsule 800 MG PO (21:19)
[2022-10-22] VITALS (10 sets, daily range): BP systolic 125–165; BP diastolic 70–82; PULSE 72–96; RESP 16–18; TEMP 36.2–36.9; O2SAT 93–97
[2022-10-22] MEDS: ciprofloxacin 400 MG/200 ML PREMIX 200 MG IV ×3 (00:23→23:15)
[2022-10-22] MEDS: acetaminophen 325 mg Tablet 650 MG PO ×3 (00:24→23:16)
[2022-10-22 05:51] LABS: Eosinophils # 0.3 10^3/uL (0.0-0.8); Eosinophils % 8.4 %; Hematocrit 36.6 % (37.0-47.0); Hemoglobin 12.5 g/dL (11.5-15.3); Lymphocytes # 0.8 10^3/uL (0.8-4.8); Lymphocytes % 26.9 %; Mean Corpuscular HGB Conc 34.2 g/dL (30.0-36.0); Mean Corpuscular Hemoglobin 30.2 pg (28.0-34.0); Mean Corpuscular Volume 88.4 fl (81-99); Monocytes # 0.6 10^3/uL (0.2-0.9); Monocytes % 17.8 %; Neutrophils # 1.41 10^3/uL (1.8-7.7); Neutrophils % 45.6 %; Nucleated Red Blood Cells % 0 %; Platelet Count 201 10^3/cmm (130-400); Red Blood Count 4.14 10^6/uL (4.1-5.3); Red Cell Distribution Width 12.8 % (12.1-15.1); White Blood Count 3.1 10^3/uL (4.0-10.0)
[2022-10-22 06:35] LABS: Blood Urea Nitrogen 23 mg/dL (8-23); Calcium 8.6 mg/dL (8.5-10.5); Carbon Dioxide 22 mmol/L (22-29); Chloride 90 mmol/L (98-107); Glucose 100 mg/dL (65-115); Osmolality Calculated 256 mOsm/kg (285-295); Sodium 121 mmol/L (136-145)
[2022-10-22 06:47] LABS: Anion Gap 13.1 (5-19); Potassium 4.1 mmol/L (3.5-5.1)
[2022-10-22] MEDS: levothyroxine 100 mcg Tablet PO (08:31)
[2022-10-22] MEDS: duloxetine 60 mg Capsule PO (08:31)
[2022-10-22] MEDS: clopidogrel 75 mg Tablet PO (08:31)
[2022-10-22] MEDS: amlodipine 5 mg Tablet PO (08:31)
[2022-10-22] MEDS: gabapentin 400 mg Capsule 800 MG PO ×3 (08:31→20:58)
[2022-10-22] MEDS: losartan 50 mg Tablet 100 MG PO (08:31)
[2022-10-22] MEDS: urea 15 gm Powder PO (08:32)
--- NOTE | 2022-10-22 10:49 | PC.SOCIAL ---
Imm update Imm updated with patient at bedside. Copy of page 2 provided. Patient verbalized understanding. Copy in chart initialed, dated and timed.
[2022-10-22] MEDS: urea 15 gm Powder 25 GM PO (17:27)
--- NOTE | 2022-10-22 19:56 | PM.PN ---
Subjective Subjective: Urea has had a bad taste. Otherwise she is doing all right. Has not yet worked with therapy. She is very happy with improvement in her blood pressure today compared to yesterday. Discussing with her that sodium this morning had worsened, she positive it is likely due to her eating barely anything yesterday. Did not have appetite. Today is feeling better. Enjoying her breakfast. Vitals/I&O/Wt Last Vital Signs Temp 98.5 F 10/22/22 16:00 Pulse 87 10/22/22 16:00 Resp 16 10/22/22 16:00 BP 144/72 10/22/22 16:00 Pulse Ox 95 10/22/22 16:00 O2 Del Method Room Air 10/22/22 16:00 10/22/22 10/22/22 10/22/22 06:59 14:59 22:59 Intake Total 680 / 880 1040 / 1040 480 / 1520 Balance 680 / 880 1040 / 1040 480 / 1520 Physical Exam Narrative: Sitting up at the edge of bed, having breakfast. Const: COMMON NORMALS: patient oriented x3 and alert GENERAL APPEARANCE: cooperative ORIENTATION/CONSCIOUSNESS: Yes awake HENMT: COMMON NORMALS: oropharynx normal Neck/C-Spine: COMMON NORMALS: no JVD Resp: COMMON NORMALS: normal respiratory effort and clear to auscultation bilaterally AUSCULTATION: clear to auscultation bilaterally Cardio: COMMON NORMALS: no JVD, regular rhythm, S1 normal heart sound present, S2 normal heart sound present and No murmurs present (Cardio) RHYTHM: regular rhythm HEART SOUNDS: S1 normal heart sound present and S2 normal heart sound present GI: COMMON NORMALS: Normal to inspection, nondistended, normoactive bowel sounds present, Soft to palpation and non-tender PALPATION: Yes Soft to palpation Extremity: COMMON NORMALS: no joint enlargement and no pedal edema OTHER: LUE immobilizer Neuro: COMMON NORMALS: patient oriented x3 SENSORIUM/ORIENTATION: Yes alert OTHER: Walking with standby assist with a hemiwalker. Data 10/22/22 04:50 10/22/22 06:07 Micro: Microbiology 10/20/22 06:43 Urine Culture - Final Urine,Clean Catch Escherichia coli A&P Assessment and plan (1) Hyponatremia: Had poor oral intake yesterday, sodium noted worsened down to 121. If increased urea to 1.5 packets per dose, add fluid restriction 1 L. Today she is also having better appetite. Anticipate sodium should improve further tomorrow. Today noted 121. Chloride 90. Otherwise renal function WNL, BUN 23, creatinine 1.8. Follow-up chemistry in the morning. Continue regular diet. Rapid overcorrection may pose risk to neurologic function from ODS. Withhold diuretics. Discussed with her could be secondary to carbamazepine with water intoxication. Monitor sodium closely, at risk of more severe hyponatremia given prior admission, additionally chronicity unknown, possibly chronic hyponatremia, avoid overly rapid rise. Fall precautions. PT. Anticipate return home with home care after discharge. Discussed with case management in rounds. (2) Hypomagnesemia: Follow-up magnesium level. (3) Goals of care, counseling/discussion: With regards to CODE STATUS she states would want to be full code in case of cardiopulmonary arrest. In terms of surrogate decision-maker in case could not make her own decisions he names her roommate as surrogate. Does not have formal DPOA paperwork, would be interested in filling it out. We will request case management consultation. (4) Diarrhea: Stool sample obtained. Noted negative for C. difficile, negative bacterial panel. Negative parasite panel. (5) UTI (urinary tract infection): Urine culture noted with pansensitive E. coli. Continue Ciprofloxacin. Plan List home medications. Attestations Medical Necessity Statement*: Continue admission for assessment and management of slow to improve recurrent hyponatremia failed outpatient treatment. Diagnoses Hyponatremia E87.1 Hypomagnesemia E83.42 Goals of care, counseling/discussion Z71.89 Diarrhea R19.7 UTI (urinary tract infection) N39.0
[2022-10-22] MEDS: ropinirole 2 mg Tablet PO (20:58)
[2022-10-23] VITALS: BP 164/81; PULSE 79; RESP 17; TEMP 36.6; O2SAT 95
[2022-10-23 04:00] VITALS: BP 161/80; PULSE 77; RESP 17; TEMP 36.4; O2SAT 95
[2022-10-23 04:12] LABS: Basophils % 0.9 %; Eosinophils # 0.2 10^3/uL (0.0-0.8); Eosinophils % 9.1 %; Hematocrit 30.4 % (37.0-47.0); Hemoglobin 10.1 g/dL (11.5-15.3); Lymphocytes # 0.7 10^3/uL (0.8-4.8); Lymphocytes % 28.6 %; Mean Corpuscular HGB Conc 33.2 g/dL (30.0-36.0); Mean Corpuscular Hemoglobin 29.4 pg (28.0-34.0); Mean Corpuscular Volume 88.6 fl (81-99); Monocytes # 0.4 10^3/uL (0.2-0.9); Neutrophils % 42.4 %; Nucleated Red Blood Cells % 0 %; Platelet Count 176 10^3/cmm (130-400); Red Blood Count 3.43 10^6/uL (4.1-5.3); Red Cell Distribution Width 12.5 % (12.1-15.1); White Blood Count 2.3 10^3/uL (4.0-10.0)
[2022-10-23 04:22] LABS: Neutrophils # 0.98 10^3/uL (1.8-7.7)
[2022-10-23 04:30] LABS: Anion Gap 13.1 (5-19); Blood Urea Nitrogen 40 mg/dL (8-23); Calcium 8.8 mg/dL (8.5-10.5); Carbon Dioxide 24 mmol/L (22-29); Chloride 94 mmol/L (98-107); Glucose 120 mg/dL (65-115); Magnesium 1.7 mg/dL (1.7-2.3); Osmolality Calculated 275 mOsm/kg (285-295); Potassium 4.1 mmol/L (3.5-5.1); Sodium 127 mmol/L (136-145)
[2022-10-23 05:21] VITALS: PULSE 76
[2022-10-23 08:00] VITALS: BP 155/66; PULSE 71; RESP 16; TEMP 36.7; O2SAT 96
[2022-10-23 08:01] VITALS: BP 161/80
[2022-10-23] MEDS: urea 15 gm Powder 25 GM PO (08:01)
[2022-10-23] MEDS: duloxetine 60 mg Capsule PO (08:01)
[2022-10-23] MEDS: losartan 50 mg Tablet 100 MG PO (08:01)
[2022-10-23] MEDS: gabapentin 400 mg Capsule 800 MG PO (08:01)
[2022-10-23] MEDS: levothyroxine 100 mcg Tablet PO (08:01)
[2022-10-23] MEDS: amlodipine 5 mg Tablet PO (08:02)
[2022-10-23] MEDS: clopidogrel 75 mg Tablet PO (08:02)
--- NOTE | 2022-10-23 11:37 | PM.DCS ---
Discharge Providers Date of Admission: 10/19/22 15:39 Date of Discharge: October 23, 2022 Attending Provider at Admission: Lincoln Gilbert Attending Provider at Discharge: Jose F Leon MD Primary Care Provider: Brett Guallpa MD Diagnoses at Discharge Discharge Diagnosis (1) Hyponatremia: Status: Acute (2) Hypomagnesemia: Status: Acute (3) Goals of care, counseling/discussion: Status: Acute (4) Diarrhea: Status: Acute (5) UTI (urinary tract infection): Status: Acute Reason for Visit Reason for Visit: sent by mukesh/abn labs Hospital Course Hospital Course 77-year-old female who was admitted for low sodium sodium 118, recently she was discharged after management of hyponatremia related to hypervolemia, nephrology was consulted who recommended UT tablets and fluid restriction. She does not meet criteria for SIADH however she looks euvolemic her serum osmolarity is low to 22 8 urine osmolality is around 123, during hospitalization urea tablets dose was increased to 25 mg twice daily along fluid striction 1 L which improved her sodium upto 127meq at the time of discharge, no signs of neurological deterioration patient is not showing any signs of ataxia, she is tolerating her diet, at the time of discharge she will urea sodium tablets twice a day regimen, avoid beta-blayne because of bradycardia and use amlodipine hydralazine for hypertension Patient remains full code, does not have medical DPOA official documentation, lives with a friend. Physical Exam Narrative: Awake and alert GCS 15 Currently on room air Hypertensive Abdomen soft S1, S2 Nonfocal neuro exam GCS 15 Discharge Data Studies Completed and Pending Completed Studies During Hospitalization Category Date Time Status XR chest 1V portable [id number] Stat Exams 10/19/22 13:34 Completed Pending at discharge Category Date Time Status Basic Metabolic Panel AM LABS Lab 10/24/22 04:00 Ordered Basic Metabolic Panel AM LABS Lab 10/25/22 04:00 Ordered Complete Blood Count w/Auto AM LABS Lab 10/24/22 04:00 Ordered Complete Blood Count w/Auto AM LABS Lab 10/25/22 04:00 Ordered Radiology Impressions Chest X-Ray 10/19/22 13:34 IMPRESSION: Minimal bilateral linear basilar atelectasis or fibrosis. No significant change. Laboratory Results WBC 2.3 10^3/uL (4.0-10.0) L 10/23/22 03:45 RBC 3.43 10^6/uL (4.1-5.3) L 10/23/22 03:45 Hgb 10.1 g/dL (11.5-15.3) L 10/23/22 03:45 Hct 30.4 % (37.0-47.0) L 10/23/22 03:45 MCV 88.6 fl (81-99) 10/23/22 03:45 MCH 29.4 pg (28.0-34.0) 10/23/22 03:45 MCHC 33.2 g/dL (30.0-36.0) 10/23/22 03:45 RDW 12.5 % (12.1-15.1) 10/23/22 03:45 Plt Count 176 10^3/cmm (130-400) 10/23/22 03:45 MPV 9.0 fL (7.4-10.4) 10/23/22 03:45 Neut % (Auto) 42.4 % 10/23/22 03:45 Lymph % (Auto) 28.6 % 10/23/22 03:45 [place] % (Auto) 19.0 % 10/23/22 03:45 Eos % (Auto) 9.1 % 10/23/22 03:45 Baso % (Auto) 0.9 % 10/23/22 03:45 Neut # (Auto) 0.98 10^3/uL (1.8-7.7) L* 10/23/22 03:45 Lymph # (Auto) 0.7 10^3/uL (0.8-4.8) L 10/23/22 03:45 [place] # (Auto) 0.4 10^3/uL (0.2-0.9) 10/23/22 03:45 Eos # (Auto) 0.2 10^3/uL (0.0-0.8) 10/23/22 03:45 Baso # (Auto) 0.0 10^3/uL (0.0-0.1) 10/23/22 03:45 Nucleated RBC % (auto) 0 % 10/23/22 03:45 Nucleated RBCs # 0.0 /100WBC 10/23/22 03:45 Sodium 127 mmol/L (136-145) L 10/23/22 03:45 Potassium 4.1 mmol/L (3.5-5.1) 10/23/22 03:45 Chloride 94 mmol/L (98-107) L 10/23/22 03:45 Carbon Dioxide 24 mmol/L (22-29) 10/23/22 03:45 Anion Gap 13.1 (5-19) 10/23/22 03:45 BUN 40 mg/dL (8-23) H 10/23/22 03:45 Creatinine 0.9 mg/dL (0.5-0.9) 10/23/22 03:45 GFR Calculation Not Reportable 10/23/22 03:45 Glucose 120 mg/dL (65-115) H 10/23/22 03:45 Calculated Osmolality 275 mOsm/kg (285-295) L 10/23/22 03:45 Calcium 8.8 mg/dL (8.5-10.5) 10/23/22 03:45 Magnesium 1.7 mg/dL (1.7-2.3) 10/23/22 03:45 Total Bilirubin 0.2 mg/dL (0.15-1.2) 10/19/22 12:28 AST 17 U/L (0-32) 10/19/22 12:28 ALT 15 U/L (0-33) 10/19/22 12:28 Alkaline Phosphatase 81 U/L (35-105) 10/19/22 12:28 Total Protein 6.5 g/dL (6.6-8.7) L 10/19/22 12:28 Albumin 4.3 g/dL (3.5-5.2) 10/19/22 12:28 Globulin 2.2 g/dL (1.3-4.6) 10/19/22 12:28 TSH 0.88 uIU/mL (0.27-4.20) 10/19/22 12:28 Urine Color Straw (Yellow) 10/20/22 06:43 Urine Appearance Cloudy (CLEAR) A 10/20/22 06:43 Urine pH 7 (5-7) 10/20/22 06:43 Ur Specific [place] 1.005 (1.005-1.030) 10/20/22 06:43 Urine Protein Neg (Negative) 10/20/22 06:43 Urine Glucose (UA) Norm (Normal) 10/20/22 06:43 Urine Ketones Negative (Negative) 10/20/22 06:43 Urine Blood Neg (Negative) 10/20/22 06:43 Urine Nitrate Positive (Negative) H 10/20/22 06:43 Urine Bilirubin Neg (Negative) 10/20/22 06:43 Urine Urobilinogen Norm mg/dL (Negative) 10/20/22 06:43 Ur Leukocyte Esterase 2+ (Negative) H 10/20/22 06:43 Urine RBC 0-4 /hpf (0-2) H 10/20/22 06:43 Urine WBC >100 /hpf (0-5) H 10/20/22 06:43 Ur Squamous Epith Cells 0-4 /hpf (0-5) H 10/20/22 06:43 Amorphous Sediment Not Reportable 10/20/22 06:43 Urine Bacteria 3+ /hpf (NONE) H 10/20/22 06:43 Vitals Last Vital Signs Temp 98.1 F 10/23/22 08:00 Pulse 71 10/23/22 08:00 Resp 16 10/23/22 08:00 BP 161/80 10/23/22 08:01 Pulse Ox 96 10/23/22 08:00 O2 Del Method Room Air 10/23/22 08:00 Discharge Plan Discharge Patient Disposition: Home Condition: Stable Prescriptions: Continued cholecalciferol (vitamin D3) 50 mcg (2,000 unit) capsule 50 mcg PO DAILY atorvastatin [Lipitor] 80 mg tablet 80 mg PO DAILY Breztri Aerosphere 160-9-4.8 mcg/actuation HFA aerosol inhaler 2 inh inhalation BID 30 Days Qty: 10.7 6RF docusate sodium [Colace] 100 mg capsule 100 mg PO BID PRN (Reason: Constipation) ropinirole 2 mg tablet 2 mg PO BEDTIME carbamazepine 200 mg tablet 200 mg PO BID Qty: 60 3RF (DME) diabetic shoes with 3 pairs inserts See Rx Instructions .Route .MEDSUPPLY Qty: 1 0RF Rx Instructions: As directed HOME Ingrezza 80 mg capsule 80 mg PO DAILY Qty: 30 2RF hydroxychloroquine 200 mg tablet 200 mg PO BID Qty: 60 0RF albuterol sulfate [Ventolin HFA] 90 mcg/actuation HFA aerosol inhaler 2 puff inhalation QID PRN (Reason: Shortness Of Breath) fenofibrate 54 mg tablet 54 mg PO DAILY levothyroxine 100 mcg tablet 100 mcg PO DAILY metformin 1,000 mg tablet 1,000 mg PO BID nitroglycerin [Nitrostat] 0.4 mg Tablet, Sublingual 0.4 mg SUBLINGUAL Q5M PRN (Reason: Chest Pain) Rx Instructions: do not exceed 3 doses per episode oxybutynin chloride 10 mg tablet extended release 24hr 20 mg PO DAILY clopidogrel 75 mg tablet 75 mg PO DAILY gabapentin 800 mg tablet 800 mg PO TID duloxetine [Cymbalta] 60 mg capsule,delayed release(DR/EC) 60 mg PO DAILY sennosides-docusate sodium [Senna-S] 8.6-50 mg tablet 1 tab-cap PO DAILY Qty: 10 0RF amlodipine 10 mg tablet 10 mg PO DAILY Qty: 30 0RF losartan 100 mg tablet 100 mg PO DAILY Qty: 30 0RF hydralazine 50 mg tablet 50 mg PO BID Qty: 60 4RF Changed Ure-Na 15 gram powder in packet 1 packet PO BIDWMEAL Qty: 30 0RF Discontinued metoprolol succinate 50 mg tablet extended release 24 hr 1 tab PO DAILY hydrochlorothiazide 25 mg tablet 1 tab PO DAILY potassium chloride 10 mEq capsule, extended release 1 cap PO DAILY promethazine 12.5 mg tablet 12.5 mg PO QID PRN (Reason: Nausea And Vomiting) Discharge Orders: Discharge Order (Routine); Ordered 10/23/22 Ordered By: Jose F Leon Referrals: Brett Guallpa MD [Primary Care Provider] - 10/30/22 1:30 pm Patient Instructions: Opioid Safety Activity Restrictions/Additional Instructions: Do not use hydrochlorothiazide for blood pressure anymore because it can drop your sodium level Use urea tablets for your low sodium For your blood pressure we have added amlodipine and hydralazine Kidney doctor recommended fluid restriction up to 1200 mL/day Discharge Attestations Time Spent in Discharge Care*: greater than 30 min Quality Metrics Clinical Quality Measures [ No reported AMI, CVA or VTE this stay] Coding Level of Care Code Acute Code for Chg Fwd Diagnoses Hyponatremia E87.1 Hypomagnesemia E83.42 Goals of care, counseling/discussion Z71.89 Diarrhea R19.7 UTI (urinary tract infection) N39.0
[2022-10-23 12:05] VITALS: BP 161/80; PULSE 71; RESP 16; TEMP 36.7; O2SAT 96
--- NOTE | 2022-10-23 17:24 | PC.NURSE ---
Received a voicemail from patient after d/c stating that she didn't have a nurse to come today and wanted us to send one out. I reviewed documentation and noted it was [facility], so I spoke with Chaz Gandara, Facility Practice Specialist and she states that she will call and speak with patient. In the meantime, I spoke with Danitza Farris LPN that discharged patient and he states that he reviewed all current, discontinued, and new medications with patient and her two caregivers in the room, to which one of them stated I will be taking care of these meds for her tonight. I called back and spoke with Chaz and informed her of this, she states they are seeing patient this evening to set up meds as patient is often forgetful and she isn't sure where the caregivers are. Nothing further needed at this time.
--- NOTE | 2022-10-23 17:32 | PC.NURSE ---
This nurse performed discharged education over patients new medication, changed medication, and discontinued medication. This nurse wrote on patients medication list in beg letters to STOP TAKING the medications under the discontinued list.
== END 2022-10-23 12:06 | disposition home or self-care (01) | DRG 641 ==
LOC: ER 13:45 → CSU 15:47 → MEDSURG 10-20 08:01
PROVIDERS: Emergency Medicine; Admitting Provider Internal Medicine; Emergency Provider Emergency Medicine; PCP Family Medicine; Visit Provider Internal Medicine
DX: E87.1 Hypo-osmolality and hyponatremia (principal); N39.0 Urinary tract infection, site not specified; Z79.51 Long term (current) use of inhaled steroids; Z79.84 Long term (current) use of oral hypoglycemic drugs; Z79.02 Long term (current) use of antithrombotics/antiplatelets; R00.1 Bradycardia, unspecified; F10.91 Alcohol use, unspecified, in remission; F15.91 Other stimulant use, unspecified, in remission; F12.11 Cannabis abuse, in remission; F31.73 Bipolar disorder, in partial remission, most recent episode manic; I12.9 Hypertensive chronic kidney disease with stage 1 through stage 4 chronic kidney disease, or unspecified chronic kidney disease; E11.22 Type 2 diabetes mellitus with diabetic chronic kidney disease; N18.9 Chronic kidney disease, unspecified; J44.9 Chronic obstructive pulmonary disease, unspecified; I25.10 Atherosclerotic heart disease of native coronary artery without angina pectoris; Z95.5 Presence of coronary angioplasty implant and graft; E78.5 Hyperlipidemia, unspecified; E03.9 Hypothyroidism, unspecified; Z87.891 Personal history of nicotine dependence; E83.42 Hypomagnesemia; Z88.1 Allergy status to other antibiotic agents; B96.20 Unspecified Escherichia coli [E. coli] as the cause of diseases classified elsewhere; R19.7 Diarrhea, unspecified; G24.01 Drug induced subacute dyskinesia; M05.9 Rheumatoid arthritis with rheumatoid factor, unspecified; G20 Parkinson's disease
CPT/HCPCS: 36415; 71045; 80048; 80053; 81001; 83735; 84295; 84443; 85025; 87077; 87086; 87186; 87493; 87506; 93005; 96365; 97161; 97530; 99285; J0744; J3475; J7030

== ENCOUNTER 2022-10-24 20:19 | Observation (INO) | payer MEDICARE, MEDICAID, SELFPAY ==
[2022-10-24 20:20] VITALS: BMI 28.3
[2022-10-24 20:25] VITALS: BP 120/65; PULSE 114; TEMP 37.1; O2SAT 94
--- NOTE | 2022-10-24 20:28 | ECG_ITS ---
[facility] Test Date: 2022-10-24 Pat Name: Elyssa Daniels Department: Room: 254 Gender: Female Security Monitor: : 1945 Requested By: Devin Araujo Order Number: [id number] Pankaj MD: Angelina Goyal M.D. Measurements Intervals [place] Rate: 117 P: 109 WA: 164 QRS: 26 QRSD: 82 T: 83 QT: 287 QTc: 401 Interpretive Statements SINUS TACHYCARDIA ABNORMAL RHYTHM ECG Compared to ECG 10/19/2022 13:48:15 Sinus rhythm no longer present First degree AV block no longer present ST (T wave) deviation no longer present Electronically Signed On 10-25-2022 16:50:29 CDT by Angelina Goyal M.D. [id number]
--- NOTE | 2022-10-24 20:54 | W.ED.WEAKNES ---
HPI - Weakness General: Chief complaint: Weakness Stated complaint: AMS, weakness Time Seen by Provider: 10/24/22 20:22 History of Present Illness: Patient presents to the hospital with complaints of weakness all over. Patient was just discharged from the hospital yesterday where she was noted to have low sodium diarrhea and UTI. Patient was sent home on a fluid restriction and sodium tablets. Patient received antibiotics during her hospital stay. Patient is also wheezing and EMS gave her 1 albuterol nebulizer treatment on route. Review of Systems General: Reports: 10 or more systems reviewed and unremarkable except in HPI and below PFSH ED PFSH: Medical History Acute hyperkalemia Acute hyponatremia Acute hyponatremia Acute renal insufficiency Alcohol use disorder in remission Amphetamine use disorder, moderate, in sustained remission ZAY positive Bipolar disorder, in partial remission, most recent episode manic Cannabis use disorder, mild, in sustained remission, abuse Cervicalgia Chronic kidney disease (CKD) Chronic obstructive pulmonary disease Closed left humeral fracture Contusion of elbow, right Coronary artery disease Patient with stents Diabetes mellitus Diarrhea Dyspnea on exertion Fall Goals of care, counseling/discussion Hyperlipidemia Hypertension Hypomagnesemia Hyponatremia Hypothyroidism Incidental pulmonary nodule, > 3mm and < 8mm Left rib fracture Lupus Major depressive disorder, recurrent, in partial remission Mass of right lung Follow-up of previous CAT scan Nicotine dependence, cigarettes, in remission Orofacial dyskinesia Parkinsonian tremor Psychiatric care Rheumatoid arthritis SS-A antibody positive Tardive dyskinesia Tobacco use disorder, mild, in sustained remission Urinary Incontinence UTI (urinary tract infection) Weakness Surgical History History of back surgery (01/17/13) History of bilateral breast reduction surgery History of bilateral tubal ligation History of bladder surgery (~1989) Vaginal Urethral sling with possible anchors . [place] [facility]. History of cholecystectomy History of colonoscopy with polypectomy (~04/20/20) 2017 History of coronary angioplasty with insertion of stent 2006: 2 stents. 2008: 2 stents. History of dilation and curettage (~1982) History of hand surgery Repair right thumb fracture History of hemorrhoidectomy History of right cataract extraction History of vaginal hysterectomy Still has ovaries. Performed in [place], [place]. Performed due to bleeding. Family History Brother Heart disease Hypertension Hypercholesteremia Diabetes Sister Thyroid condition Social History Smoking and tobacco status: former smoker Smoking risk assessment/counseling performed?: No Counseling given: No Substance/Drug Use: never Counseling given: No Lives independently: Yes Household members: none Marital status: Current occupational status: disabled Do you think of yourself as: Straight/Heterosexual Current gender identity: Female Physical Exam Const: COMMON NORMALS: no acute distress, average body habitus, patient oriented x3, no limitations, healthy appearing, alert and well nourished HENMT: COMMON NORMALS: normocephalic, atraumatic, hearing grossly normal bilaterally, external ears normal, Normal external nose present and moist oral mucous membranes HEAD & SCALP: normocephalic and atraumatic NOSE: Normal external nose present EXTERNAL EAR: Yes external ears normal Eye: COMMON NORMALS: Equal, round and reactive pupils present, EOMs intact bilaterally, conjunctivae normal and no scleral icterus CONJUNCTIVA: Yes conjunctivae normal PUPIL: Yes Equal, round and reactive pupils present Neck/C-Spine: COMMON NORMALS: full ROM, no lymphadenopathy, supple, no meningeal signs, no JVD and Thyroid normal THYROID: Thyroid normal Lymph: LYMPHATIC: no lymphadenopathy noted Chest: COMMONS NORMALS: normal inspection of the chest and normal palpation of entire chest wall Resp: COMMON NORMALS: normal respiratory effort, No retractions and No use of accessory muscles; negative for clear to auscultation bilaterally (Mild wheezing) AUSCULTATION: not clear to auscultation bilaterally (Mild wheezing) Cardio: COMMON NORMALS: no JVD, regular rhythm, S1 normal heart sound present and S2 normal heart sound present; negative for regular rate (Tachycardia) RATE: abnormal rate (Tachycardia) RHYTHM: regular rhythm HEART SOUNDS: S1 normal heart sound present and S2 normal heart sound present GI: COMMON NORMALS: Normal to inspection, nondistended, normoactive bowel sounds present, Soft to palpation, non-tender, No hepatosplenomegaly present and no masses PALPATION: Yes Soft to palpation and Yes No hepatosplenomegaly present Extremity: OTHER: Left shoulder and shoulder immobilizer Neuro: COMMON NORMALS: patient oriented x3 SENSORIUM/ORIENTATION: Yes alert MENINGEAL SIGNS: Yes no meningeal signs Course Vital Signs: Vital signs: Vital Signs Temperature 98.8 F 10/24/22 20:25 Pulse Rate 104 H 10/24/22 22:30 Respiratory Rate 20 H 10/24/22 21:22 Blood Pressure 116/54 10/24/22 22:30 Pulse Oximetry 97 10/24/22 22:30 Oxygen Delivery Me thod Nasal Cannula 10/24/22 22:30 Oxygen Flow Rate 3 10/24/22 22:30 MDM - Weakness Medical Decision Making Presents to the ER for generalized weakness and wheezing. EMS administered a breathing treatment on route. Physical exam was performed lab work was obtained which showed a sodium of stable at 130 BUN/creatinine was slightly elevated at 56 and 1.5 urine was clean for infection standpoint patient was reevaluated and found sleeping soundly in her bed. Patient was informed of all the lab results. Patient will be discharged home to follow-up with her PCP Differential Diagnosis Unlikely acute myocardial infarction, anemia, hypoglycemia, hypothyroidism, rhabdomyolysis, sepsis or dehydration Medical Records I reviewed the patient's medical records. Lab Data I reviewed the patient's lab results. 10/24/22 21:46 10/24/22 20:50 Laboratory Results WBC 6.5 10^3/uL (4.0-10.0) 10/24/22 21:46 Corrected WBC Cancelled 10/24/22 21:17 RBC 3.25 10^6/uL (4.1-5.3) L 10/24/22 21:46 Hgb 9.7 g/dL (11.5-15.3) L 10/24/22 21:46 Hct 29.5 % (37.0-47.0) L 10/24/22 21:46 MCV 90.8 fl (81-99) 10/24/22 21:46 MCH 29.8 pg (28.0-34.0) 10/24/22 21:46 MCHC 32.9 g/dL (30.0-36.0) 10/24/22 21:46 RDW 12.9 % (12.1-15.1) 10/24/22 21:46 Plt Count 186 10^3/cmm (130-400) 10/24/22 21:46 MPV 8.9 fL (7.4-10.4) 10/24/22 21:46 Gran % Cancelled 10/24/22 21:17 Neut % (Auto) 91.9 % 10/24/22 21:46 Lymph % (Auto) 1.4 % 10/24/22 21:46 [place] % (Auto) 5.7 % 10/24/22 21:46 Eos % (Auto) 0.3 % 10/24/22 21:46 Baso % (Auto) 0.2 % 10/24/22 21:46 Neut # (Auto) 5.96 10^3/uL (1.8-7.7) 10/24/22 21:46 Lymph # (Auto) 0.1 10^3/uL (0.8-4.8) L 10/24/22 21:46 [place] # (Auto) 0.4 10^3/uL (0.2-0.9) 10/24/22 21:46 Eos # (Auto) 0.0 10^3/uL (0.0-0.8) 10/24/22 21:46 Baso # (Auto) 0.0 10^3/uL (0.0-0.1) 10/24/22 21:46 Absolute Gran (auto) Cancelled 10/24/22 21:17 Nucleated RBC % (auto) 0 % 10/24/22 21:46 Nucleated RBCs # 0.0 /100WBC 10/24/22 21:46 Sodium 130 mmol/L (136-145) L 10/24/22 20:50 Potassium 4.4 mmol/L (3.5-5.1) 10/24/22 20:50 Chloride 95 mmol/L (98-107) L 10/24/22 20:50 Carbon Dioxide 21 mmol/L (22-29) L 10/24/22 20:50 Anion Gap 18.4 (5-19) 10/24/22 20:50 BUN 56 mg/dL (8-23) H 10/24/22 20:50 Creatinine 1.5 mg/dL (0.5-0.9) H 10/24/22 20:50 GFR Calculation Not Reportable 10/24/22 20:50 Glucose 194 mg/dL (65-115) H 10/24/22 20:50 Calculated Osmolality 291 mOsm/kg (285-295) 10/24/22 20:50 Calcium 8.9 mg/dL (8.5-10.5) 10/24/22 20:50 Magnesium 1.6 mg/dL (1.7-2.3) L 10/24/22 20:50 Total Bilirubin 0.3 mg/dL (0.15-1.2) 10/24/22 20:50 AST 18 U/L (0-32) 10/24/22 20:50 ALT 19 U/L (0-33) 10/24/22 20:50 Alkaline Phosphatase 82 U/L (35-105) 10/24/22 20:50 Total Protein 6.3 g/dL (6.6-8.7) L 10/24/22 20:50 Albumin 4.1 g/dL (3.5-5.2) 10/24/22 20:50 Globulin 2.2 g/dL (1.3-4.6) 10/24/22 20:50 Urine Color Yellow (Yellow) 10/24/22 21:51 Urine Appearance Sl hazy (CLEAR) A 10/24/22 21:51 Urine pH 5 (5-7) 10/24/22 21:51 Ur Specific [place] 1.010 (1.005-1.030) 10/24/22 21:51 Urine Protein 1+ (Negative) H 10/24/22 21:51 Urine Glucose (UA) Norm (Normal) 10/24/22 21:51 Urine Ketones Negative (Negative) 10/24/22 21:51 Urine Blood Neg (Negative) 10/24/22 21:51 Urine Nitrate Negative (Negative) 10/24/22 21:51 Urine Bilirubin Neg (Negative) 10/24/22 21:51 Urine Urobilinogen Neg mg/dL (Negative) 10/24/22 21:51 Ur Leukocyte Esterase Negative (Negative) 10/24/22 21:51 Urine RBC 0-4 /hpf (0-2) H 10/24/22 21:51 Urine WBC 0-4 /hpf (0-5) H 10/24/22 21:51 Ur Squamous Epith Cells 10-15 /hpf (0-5) H 10/24/22 21:51 Ur Transition Epith Cell 0-4 /hpf 10/24/22 21:51 Amorphous Sediment 2+ /hpf 10/24/22 21:51 Urine Bacteria 1+ /hpf (NONE) H 10/24/22 21:51 EKG Data EKG 1: I personally reviewed and interpreted this EKG as follows: EKG interpretation date: 10/24/22 EKG interpretation time: 20:28 Prior EKG tracings: not available for review Interpretation: EKG showed sinus tachycardia with ventricular rate of 117 bpm, AL interval 164, QRS duration 82, QTc of 356, no ST-T wave changes Discharge Plan Discharge Patient Disposition: Home Clinical Impression: Weakness, Wheezing Condition: Stable Prescriptions: No Action cholecalciferol (vitamin D3) 50 mcg (2,000 unit) capsule 50 mcg PO DAILY atorvastatin [Lipitor] 80 mg tablet 80 mg PO DAILY Breztri Aerosphere 160-9-4.8 mcg/actuation HFA aerosol inhaler 2 inh inhalation BID 30 Days Qty: 10.7 6RF docusate sodium [Colace] 100 mg capsule 100 mg PO BID PRN (Reason: Constipation) ropinirole 2 mg tablet 2 mg PO BEDTIME carbamazepine 200 mg tablet 200 mg PO BID Qty: 60 3RF (DME) diabetic shoes with 3 pairs inserts See Rx Instructions .Route .MEDSUPPLY Qty: 1 0RF Rx Instructions: As directed HOME Ingrezza 80 mg capsule 80 mg PO DAILY Qty: 30 2RF hydroxychloroquine 200 mg tablet 200 mg PO BID Qty: 60 0RF albuterol sulfate [Ventolin HFA] 90 mcg/actuation HFA aerosol inhaler 2 puff inhalation QID PRN (Reason: Shortness Of Breath) fenofibrate 54 mg tablet 54 mg PO DAILY levothyroxine 100 mcg tablet 100 mcg PO DAILY metformin 1,000 mg tablet 1,000 mg PO BID nitroglycerin [Nitrostat] 0.4 mg Tablet, Sublingual 0.4 mg SUBLINGUAL Q5M PRN (Reason: Chest Pain) Rx Instructions: do not exceed 3 doses per episode oxybutynin chloride 10 mg tablet extended release 24hr 20 mg PO DAILY clopidogrel 75 mg tablet 75 mg PO DAILY gabapentin 800 mg tablet 800 mg PO TID duloxetine [Cymbalta] 60 mg capsule,delayed release(DR/EC) 60 mg PO DAILY sennosides-docusate sodium [Senna-S] 8.6-50 mg tablet 1 tab-cap PO DAILY Qty: 10 0RF amlodipine 10 mg tablet 10 mg PO DAILY Qty: 30 0RF losartan 100 mg tablet 100 mg PO DAILY Qty: 30 0RF hydralazine 50 mg tablet 50 mg PO BID Qty: 60 4RF Ure-Na 15 gram powder in packet 1 packet PO BIDWMEAL Qty: 30 0RF Discharge Orders: Discharge ED (Routine); Ordered 10/24/22 Ordered By: Devin Araujo Referrals: Brett Guallpa MD [Primary Care Provider] - 1 week Patient Instructions: Wheezing (ED), Weakness (Generalized) Activity Restrictions/Additional Instructions: Your lab work was stable or improved from your recent discharge. Please continue the medication as directed and follow-up with your primary care physician for further evaluation and treatment. Coding Level of Care Code ED Furniture Stainer for Aicha Jean Baptiste
[2022-10-24 21:22] VITALS: BP 134/82; RESP 20; O2SAT 95
[2022-10-24 21:52] LABS: Basophils % 0.2 %; Eosinophils % 0.3 %; Hematocrit 29.5 % (37.0-47.0); Hemoglobin 9.7 g/dL (11.5-15.3); Lymphocytes # 0.1 10^3/uL (0.8-4.8); Lymphocytes % 1.4 %; Mean Corpuscular HGB Conc 32.9 g/dL (30.0-36.0); Mean Corpuscular Hemoglobin 29.8 pg (28.0-34.0); Mean Corpuscular Volume 90.8 fl (81-99); Mean Platelet Volume 8.9 fL (7.4-10.4); Monocytes # 0.4 10^3/uL (0.2-0.9); Monocytes % 5.7 %; Neutrophils # 5.96 10^3/uL (1.8-7.7); Neutrophils % 91.9 %; Nucleated Red Blood Cells % 0 %; Platelet Count 186 10^3/cmm (130-400); Red Blood Count 3.25 10^6/uL (4.1-5.3); Red Cell Distribution Width 12.9 % (12.1-15.1); White Blood Count 6.5 10^3/uL (4.0-10.0)
[2022-10-24 22:20] LABS: Add Urine Microscopic? YES; Bilirubin Urine Neg (Negative); Blood Urine Neg (Negative); Glucose Urine UA Norm (Normal); Ketones Urine Negative (Negative); Leukocyte Esterase Urine Negative (Negative); Nitrate Urine Negative (Negative); Protein Urine 1+ (Negative); Urine Color Yellow (Yellow); Urobilinogen Urine Neg (Negative); pH Urine 5 (5-7)
[2022-10-24 22:21] LABS: Add Urine Culture? No; Amorphous Sediment Urine 2+ /hpf; Bacteria Urine 1+ /hpf; RBC Urine 0-4 /hpf (0-2); Transitional Epi Cells Urine 0-4 /hpf; Urine Appearance SL Hazy (CLEAR); WBC Urine 0-4 /hpf (0-5)
[2022-10-24 22:30] VITALS: BP 116/54; PULSE 104; O2SAT 97
[2022-10-24 22:38] LABS: Alanine Aminotransferase 19 U/L (0-33); Albumin Level 4.1 g/dL (3.5-5.2); Alkaline Phosphatase 82 U/L (35-105); Aspartate Amino Transferase 18 U/L (0-32); Blood Urea Nitrogen 56 mg/dL (8-23); Calcium 8.9 mg/dL (8.5-10.5); Carbon Dioxide 21 mmol/L (22-29); Chloride 95 mmol/L (98-107); Globulin 2.2 g/dL (1.3-4.6); Glucose 194 mg/dL (65-115); Magnesium 1.6 mg/dL (1.7-2.3); Osmolality Calculated 291 mOsm/kg (285-295); Sodium 130 mmol/L (136-145); Total Bilirubin 0.3 mg/dL (0.15-1.2); Total Protein 6.3 g/dL (6.6-8.7)
[2022-10-24 22:42] LABS: Anion Gap 18.4 (5-19); Potassium 4.4 mmol/L (3.5-5.1)
--- NOTE | 2022-10-24 23:33 | XRR_ITS ---
PROCEDURE INFORMATION: Exam: XR Chest Exam date and time: 10/24/2022 11:43 PM Age: 77 years old Clinical indication: Shortness of breath; Additional info: SOB TECHNIQUE: Imaging protocol: Radiologic exam of the chest. Views: 1 view. COMPARISON: 1. CR XR chest 1V portable [id number] 10/19/2022 1:39 PM 2. CR (CHEST, ) 09/24/2022 12:36 AM 3. CR XR chest 1V portable [id number] 09/05/2022 6:02 PM FINDINGS: Lungs: Hypoinflated lungs. Mild linear scarring versus atelectasis at the left lung base. No consolidation. Pleural spaces: Unremarkable. No pleural effusion. No pneumothorax. Heart/Mediastinum: Unremarkable. No cardiomegaly. Vasculature: Aortic arch atherosclerotic calcification. Coronary artery calcification versus stent material. Bones/joints: Mildly displaced lateral left 3rd, 4th, and 5th rib fractures. XR/XR chest 1V portable [id number] IMPRESSION: 1. Mildly displaced lateral left 3rd, 4th, and 5th rib fractures. 2. No acute cardiopulmonary findings.
[2022-10-25] VITALS (13 sets, daily range): BP systolic 105–130; BP diastolic 52–88; PULSE 77–120; RESP 16–20; TEMP 36.4–37.1; O2SAT 95–99
[2022-10-25 00:03] LABS: ABG PCO2 34.6 mmHg (35-45); Arterial Blood Gas Hematocrit 31.1 % (37-47); Blood Gas Sample Site Brachial, right; Blood Gas Sample Type Arterial; HCO3 ABG 21.3 mmol/L (22-26); Oxygen Device NC
[2022-10-25 00:10] LABS: NT Pro B Type Natriuretic Pept 368 pg/mL (0-450)
[2022-10-25 00:45] LABS: SARS Covid-2 Antigen negative (Negative)
--- NOTE | 2022-10-25 03:00 | P.HP_ITS ---
Providers/Chief Complaint Admitting Physician: Nafisa Christiansen MD Primary Care Provider: Brett Guallpa MD Chief Complaint: AMS, weakness History of Present Illness Elyssa Daniels is a 77 year old female who was discharged from the hospital yesterday after treatment of hyponatremia related to hypervolemia, treated with urea tablets and fluid restriction. She was awake and alert at the time of discharge on room air had a nonfocal neuro exam and was discharged to home. She returned to the emergency room complaining of increased generalized weakness. States that since returning home she has been weak and has fallen. States that she has been unable to hold her weight. She is very slow to respond to questions though does answer appropriately once asked multiple times and redirected. She is moving all extremities in bed. appears to be dehydrated with dry parched mucus membranes. She is currently on 2lpm supplemental 02 which is new for her. deneis any cough, chest pain, dyspnea or palpitations . Review of Systems General: Reports: 10 or more systems reviewed and unremarkable except in HPI and below Const: Denies: fever(s), chills or body aches Eyes: Denies: change in vision, blurry vision or photophobia ENMT: Reports: hoarseness; Denies: throat pain, enlarged tonsils, odynophagia or nasal congestion Card: Denies: chest pain, palpitations, irregular heart rhythm, edema, swelling of feet/ankles, lightheadedness, pre-syncope, dyspnea on exertion or orthopnea Resp: Denies: dyspnea, productive cough, non-productive cough, wheezing, stridor, pain on inspiration, change in phlegm color, hemoptysis or chest congestion GI: Denies: abdominal pain, nausea, vomiting, hematemesis, coffee ground emes is, dysphagia, heartburn, diarrhea, constipation, GI cramping, change in stool character, hematochezia or melena : Denies: flank pain, difficulty voiding, dysuria, urinary frequency, urinary urgency, urinary hesitancy or hematuria Musc: Denies: neck pain, back pain, extremity pain, joint swelling, joint warmth or deformity Neuro: Denies: headache(s), numbness in extremities, weakness in extremities, sensory changes, difficulty walking, frequent falls, dizziness, vertigo, behavioral changes, Slurred speech present or seizure-like activity Psych: Denies: anxiety, depression, suicidal ideation or homicidal ideation Endo: Denies: polyuria, polydipsia, tired all the time, cold intolerance or hot flashes Kenny/Lymph: Denies: easy bruising or easy bleeding Medications/Allergies Home Medications Medication Instructions Recorded Confirmed Last Taken Type atorvastatin 80 mg tablet (Lipitor) 80 mg PO DAILY 06/03/19 10/19/22 09/03/20 History cholecalciferol (vitamin D3) 50 50 mcg PO DAILY 03/26/20 10/19/22 09/03/20 History mcg (2,000 unit) capsule albuterol sulfate 90 mcg/actuation 2 puff inhalation QID PRN 09/03/20 10/19/22 Unknown History aerosol inhaler (Ventolin HFA) Shortness Of Breath fenofibrate 54 mg tablet 54 mg PO DAILY 09/03/20 10/19/22 09/03/20 History budesonide 160 mcg-glycopyr 9 2 inh inhalation BID 30 days #10.7 11/22/20 10/19/22 Unknown Rx mcg-formot 4.8 mcg/actuation HFA grams inhaler (Breztri Aerosphere) docusate sodium 100 mg capsule 100 mg PO BID PRN Constipation 03/14/21 10/19/22 Unknown History (Colace) ropinirole 2 mg tablet 2 mg PO BEDTIME 03/14/21 10/19/22 Unknown History hydroxychloroquine 200 mg tablet 200 mg PO BID #60 tabs 08/01/21 10/19/22 Unknown Rx carbamazepine 200 mg tablet 200 mg PO BID #60 tabs 08/31/21 10/19/22 Unknown Rx diabetic shoes with 3 pairs inserts #1 ea 05/22/22 10/19/22 Unknown Rx valbenazine 80 mg capsule 80 mg PO DAILY #30 caps 08/03/22 10/19/22 Unknown Rx (Ingrezza) clopidogrel 75 mg tablet 75 mg PO DAILY 09/06/22 10/19/22 Unknown History duloxetine 60 mg capsule,delayed 60 mg PO DAILY 09/06/22 10/19/22 Unknown Histor y release (Cymbalta) gabapentin 800 mg tablet 800 mg PO TID 09/06/22 10/19/22 Unknown History levothyroxine 100 mcg tablet 100 mcg PO DAILY 09/06/22 10/19/22 Unknown History metformin 1,000 mg tablet 1,000 mg PO BID 09/06/22 10/19/22 Unknown History nitroglycerin 0.4 mg sublingual 0.4 mg sublingual Q5M PRN Chest 09/06/22 10/19/22 Unknown History tablet (Nitrostat) Pain oxybutynin chloride 10 mg 20 mg PO DAILY Overactive bladder, 09/06/22 10/19/22 Unknown History tablet,extended release 24 hr incontinence amlodipine 10 mg tablet 10 mg PO DAILY #30 tabs 09/07/22 10/19/22 Unknown Rx losartan 100 mg tablet 100 mg PO DAILY #30 tabs 09/07/22 10/19/22 09/03/20 Rx sennosides 8.6 mg-docusate sodium 1 tab-cap PO DAILY #10 tabs 09/07/22 10/19/22 Unknown Rx 50 mg tablet (Senna-S) hydralazine 50 mg tablet 50 mg PO BID #60 tabs 09/28/22 10/19/22 Unknown Rx urea 15 gram oral powder packet 1 packet PO BIDWMEAL #30 ea 10/23/22 Unknown Rx (Ure-Na) Allergies Allergy/AdvReac Type Severity Reaction Status Date / Time cephalexin [From Keflex] Allergy Mild ADR-Itching Verified 10/19/22 11:35 PFSH Acute PFSH: Medical History (Updated 10/25/22 @ 07:12 by Nafisa Christiansen MD) Acute hyperkalemia Acute hyponatremia Acute hyponatremia Acute renal insufficiency Alcohol use disorder in remission Amphetamine use disorder, moderate, in sustained remission ZAY positive Bipolar disorder, in partial remission, most recent episode manic Cannabis use disorder, mild, in sustained remission, abuse Cervicalgia Chronic kidney disease (CKD) Chronic obstructive pulmonary disease Closed left humeral fracture Contusion of elbow, right Coronary artery disease Patient with stents Diabetes mellitus Diarrhea Dyspnea on exertion Fall Goals of care, counseling/discussion Hyperlipidemia Hypertension Hypomagnesemia Hyponatremia Hypothyroidism Incidental pulmonary nodule, > 3mm and < 8mm Left rib fracture Lupus Major depressive disorder, recurrent, in partial remission Mass of right lung Follow-up of previous CAT scan Nicotine dependence, cigarettes, in remission Orofacial dyskinesia Parkinsonian tremor Psychiatric care Rheumatoid arthritis SS-A antibody positive Tardive dyskinesia Tobacco use disorder, mild, in sustained remission Urinary Incontinence UTI (urinary tract infection) Weakness Surgical History History of back surgery (01/17/13) History of bilateral breast reduction surgery History of bilateral tubal ligation History of bladder surgery (~1989) Vaginal Urethral sling with possible anchors . Performed by Dr. Salas at [facility]. History of cholecystectomy History of colonoscopy with polypectomy (~04/20/20) 2017 History of coronary angioplasty with insertion of stent 2006: 2 stents. 2008: 2 stents. History of dilation and curettage (~1982) History of hand surgery Repair right thumb fracture History of hemorrhoidectomy History of right cataract extraction History of vaginal hysterectomy Still has ovaries. Performed in [place], [place]. Performed due to bleeding. Family History Brother Heart disease Hypertension Hypercholesteremia Diabetes Sister Thyroid condition Social History Smoking and tobacco status: former smoker Smoking risk assessment/counseling performed?: No Counseling given: No Substance/Drug Use: never Counseling given: No Lives independently: Yes Household members: none Marital status: Current occupational status: disabled Do you think of yourself as: Straight/Heterosexual Current gender identity: Female Vitals/I&O/Wt Last Vital Signs Temp 97.6 F 10/25/22 04:58 Pulse 91 10/25/22 06:15 Resp 17 10/25/22 04:58 BP 107/64 10/25/22 04:58 Pulse Ox 97 10/25/22 04:58 O2 Del Method Nasal Cannula 10/25/22 01:16 O2 Flow Rate 3 10/25/22 00:00 10/24/22 10/24/22 10/25/22 14:59 22:59 06:59 Intake Total 120 / 120 Balance 120 / 120 Weight last 48 hrs Weight 74.843 kg Physical Exam Narrative: General: No acute distress, AO x3 HEENT: PERRLA, pupils bilaterally equal and reactive, pallors not present Chest: Normal vesicular breath sounds, no added sounds, equal good air entry bilaterally CVS: S1-S2 regular, no murmurs, no tachycardia, no gallops, no rubs Abdomen: Soft, nontender, no organomegaly, bowel sounds present Neuro: No focal deficits, no facial deformity, AO x3, though responds slowly to questions and needs redirected Data 10/24/22 21:46 10/24/22 20:50 Other data: Radiology Impressions Chest X-Ray 10/24/22 23:33 IMPRESSION: 1. Mildly displaced lateral left 3rd, 4th, and 5th rib fractures. 2. No acute cardiopulmonary findings. Laboratory Results WBC 6.5 10^3/uL (4.0-10.0) 10/24/22 21:46 Corrected WBC Cancelled 10/24/22 21:17 RBC 3.25 10^6/uL (4.1-5.3) L 10/24/22 21:46 Hgb 9.7 g/dL (11.5-15.3) L 10/24/22 21:46 Hct 29.5 % (37.0-47.0) L 10/24/22 21:46 MCV 90.8 fl (81-99) 10/24/22 21:46 MCH 29.8 pg (28.0-34.0) 10/24/22 21:46 MCHC 32.9 g/dL (30.0-36.0) 10/24/22 21:46 RDW 12.9 % (12.1-15.1) 10/24/22 21:46 Plt Count 186 10^3/cmm (130-400) 10/24/22 21:46 MPV 8.9 fL (7.4-10.4) 10/24/22 21:46 Gran % Cancelled 10/24/22 21:17 Neut % (Auto) 91.9 % 10/24/22 21:46 Lymph % (Auto) 1.4 % 10/24/22 21:46 [place]ier % (Auto) 5.7 % 10/24/22 21:46 Eos % (Auto) 0.3 % 10/24/22 21:46 Baso % (Auto) 0.2 % 10/24/22 21:46 Neut # (Auto) 5.96 10^3/uL (1.8-7.7) 10/24/22 21:46 Lymph # (Auto) 0.1 10^3/uL (0.8-4.8) L 10/24/22 21:46 [place]ier # (Auto) 0.4 10^3/uL (0.2-0.9) 10/24/22 21:46 Eos # (Auto) 0.0 10^3/uL (0.0-0.8) 10/24/22 21:46 Baso # (Auto) 0.0 10^3/uL (0.0-0.1) 10/24/22 21:46 Absolute Gran (auto) Cancelled 10/24/22 21:17 Nucleated RBC % (auto) 0 % 10/24/22 21:46 Nucleated RBCs # 0.0 /100WBC 10/24/22 21:46 Specimen Type Arterial 10/24/22 23:50 Sample Site Brachial, right 10/24/22 23:50 ABG pH 7.40 (7.35-7.45) 10/24/22 23:50 ABG pCO2 34.6 mmHg (35-45) L 10/24/22 23:50 ABG pO2 96.0 mmHg (80.0-100.0) 10/24/22 23:50 ABG HCO3 21.3 mmol/L (22-26) L 10/24/22 23:50 ABG Base Excess -3.0 mmol/L (-2.0-2.0) L 10/24/22 23:50 Donn Test N/a 10/24/22 23:50 Hematocrit 31.1 % (37-47) L 10/24/22 23:50 O2 Delivery Device Nc 10/24/22 23:50 O2 Liters/Min 3.0 % 10/24/22 23:50 FiO2 32.0 % 10/24/22 23:50 Social Media Marketing Analyst ID Alejohn 10/24/22 23:50 Sodium 130 mmol/L (136-145) L 10/24/22 20:50 Potassium 4.4 mmol/L (3.5-5.1) 10/24/22 20:50 Chloride 95 mmol/L (98-107) L 10/24/22 20:50 Carbon Dioxide 21 mmol/L (22-29) L 10/24/22 20:50 Anion Gap 18.4 (5-19) 10/24/22 20:50 BUN 56 mg/dL (8-23) H 10/24/22 20:50 Creatinine 1.5 mg/dL (0.5-0.9) H 10/24/22 20:50 GFR Calculation Not Reportable 10/24/22 20:50 Glucose 194 mg/dL (65-115) H 10/24/22 20:50 POC Glucose 126 mg/dL (70-110) H 10/25/22 06:34 Calculated Osmolality 291 mOsm/kg (285-295) 10/24/22 20:50 Calcium 8.9 mg/dL (8.5-10.5) 10/24/22 20:50 Magnesium 1.6 mg/dL (1.7-2.3) L 10/24/22 20:50 Total Bilirubin 0.3 mg/dL (0.15-1.2) 10/24/22 20:50 AST 18 U/L (0-32) 10/24/22 20:50 ALT 19 U/L (0-33) 10/24/22 20:50 Alkaline Phosphatase 82 U/L (35-105) 10/24/22 20:50 NT-Pro-B Natriuret Pep 368 pg/mL (0-450) 10/24/22 20:50 Total Protein 6.3 g/dL (6.6-8.7) L 10/24/22 20:50 Albumin 4.1 g/dL (3.5-5.2) 10/24/22 20:50 Globulin 2.2 g/dL (1.3-4.6) 10/24/22 20:50 Urine Color Yellow (Yellow) 10/24/22 21:51 Urine Appearance Sl hazy (CLEAR) A 10/24/22 21:51 Urine pH 5 (5-7) 10/24/22 21:51 Ur Specific [place] 1.010 (1.005-1.030) 10/24/22 21:51 Urine Protein 1+ (Negative) H 10/24/22 21:51 Urine Glucose (UA) Norm (Normal) 10/24/22 21:51 Urine Ketones Negative (Negative) 10/24/22 21:51 Urine Blood Neg (Negative) 10/24/22 21:51 Urine Nitrate Negative (Negative) 10/24/22 21:51 Urine Bilirubin Neg (Negative) 10/24/22 21:51 Urine Urobilinogen Neg mg/dL (Negative) 10/24/22 21:51 Ur Leukocyte Esterase Negative (Negative) 10/24/22 21:51 Urine RBC 0-4 /hpf (0-2) H 10/24/22 21:51 Urine WBC 0-4 /hpf (0-5) H 10/24/22 21:51 Ur Squamous Epith Cells 10-15 /hpf (0-5) H 10/24/22 21:51 Ur Transition Epith Cell 0-4 /hpf 10/24/22 21:51 Amorphous Sediment 2+ /hpf 10/24/22 21:51 Urine Bacteria 1+ /hpf (NONE) H 10/24/22 21:51 SARS-CoV-2 Ag (Rapid) negative (Negative) 10/25/22 00:15 A&P Assessment and plan (1) DAKSHA (acute kidney injury): (2) Rib fractures: (3) Hypoxia: Plan 77F presenting discharged yesterday after treatment for hyponatremia though to be SIADH, returned with generalized weakness and fall at home. Found to have Mildly displaced lateral left 3rd, 4th, and 5th rib fractures. no consolidation Not complaining of any pain at this time. start incentive spiromtery. supplemental 02 to keep saturation > 92% Check CT head to check for intracranial injuries, moving all extremities but slow to respond to questions She is clinically dehydrated, dry mucus membranes , parched skin and tongue start NS @ 75 cc/ hr, check NA at 4 pm Recent UTI- start ceftriaxone 1g iv every 24 hr pt/ot evaluation disposiiton planning: patient lives witha friend, she states she feels unsafe returning home with her falls and weakness. Will assess for appropriate dispoition after therapy assessments, CT head Attestations Medical Necessity Statement*: > 2 midnight admission anticipated Coding Level of Care Code Acute Code for [facility] Fwd Diagnoses DAKSHA (acute kidney injury) N17.9 Rib fractures S22.49XA Hypoxia R09.02
[2022-10-25] MEDS: sodium chloride 0.9% 1,000 ML 75 ML IV ×2 (03:01→19:43)
[2022-10-25] MEDS: enoxaparin 40 mg/0.4 mL Syringe SUBCUT (03:01)
--- NOTE | 2022-10-25 06:31 | CT_ITS ---
WS: [id number] CT HEAD TECHNIQUE: Noncontrast CT of the head obtained from the skullbase to the vertex. CLINICAL INFORMATION: recurrent falls COMPARISON: September 24, 2022 DLP: 1088.[address] scans at [facility] use at least one of these dose optimization techniques: automated e xposure control; mA and/or kV adjustment per patient size (includes targeted exams where dose is matc hed to clinical indication); or iterative reconstruction. FINDINGS: No evidence of intracranial hemorrhage or mass effect. Ventricular system and basal cisterns are evangelista nt. Moderate small vessel changes with moderate parenchymal volume loss. Tiny chronic lacunar infarct RIGHT cerebellum. Intracranial vascular calcification. No extra-axial fluid collections. No evidence of mass or mass effect. Paranasal sinuses and mastoid air cells are well aerated. .Normal visualized soft tissues. CT/CT head wo con* [id number] IMPRESSION: 1. No evidence of intracranial hemorrhage or mass effect. 2. Moderate small vessel changes. Moderate parenchymal volume loss. 3. Intracranial vascular calcification. 4. No acute intracranial findings.
[2022-10-25 06:41] LABS: Glucose Point of Care 126 mg/dL (70-110)
[2022-10-25] MEDS: ipratropium-albuterol 3 mL Neb INHALATION ×3 (08:46→20:28)
[2022-10-25] MEDS: budesonide 0.5 mg/2 mL Neb 0.25 MG INHALATION ×2 (08:46→20:28)
[2022-10-25] MEDS: pantoprazole DR 40 mg Tablet PO (09:02)
[2022-10-25] MEDS: cefTRIAXone 1,000 MG in sodium chloride 0.9% (plus) 50 ML 100 MG IV (09:03)
--- NOTE | 2022-10-25 09:18 | PC.PHAR ---
pt unable to verify medications-waiting for gentaurelio [phone] to fax med list-medications entered are meds from what the [facility] ([facility] has [facility] recently and what was on previously entered med list
[2022-10-25] MEDS: magnesium sulfate premix 2 GM/50 ML PIGGYBACK IV (12:09)
[2022-10-25 12:28] LABS: Basophils % 0.4 %; Eosinophils % 0.4 %; Hematocrit 28.2 % (37.0-47.0); Lymphocytes # 0.2 10^3/uL (0.8-4.8); Lymphocytes % 8.8 %; Mean Corpuscular HGB Conc 31.9 g/dL (30.0-36.0); Mean Corpuscular Hemoglobin 30.1 pg (28.0-34.0); Mean Corpuscular Volume 94.3 fl (81-99); Mean Platelet Volume 9.1 fL (7.4-10.4); Monocytes # 0.3 10^3/uL (0.2-0.9); Monocytes % 11.4 %; Neutrophils # 1.79 10^3/uL (1.8-7.7); Neutrophils % 78.6 %; Nucleated Red Blood Cells % 0 %; Platelet Count 153 10^3/cmm (130-400); Red Blood Count 2.99 10^6/uL (4.1-5.3); Red Cell Distribution Width 13.2 % (12.1-15.1); White Blood Count 2.3 10^3/uL (4.0-10.0)
[2022-10-25 12:46] LABS: Alanine Aminotransferase 49 U/L (0-33); Albumin Level 3.3 g/dL (3.5-5.2); Alkaline Phosphatase 78 U/L (35-105); Anion Gap 14.3 (5-19); Aspartate Amino Transferase 82 U/L (0-32); Blood Urea Nitrogen 57 mg/dL (8-23); Calcium 8.3 mg/dL (8.5-10.5); Carbamazepine Tegretol 3.4 ug/mL (4.0-12.0); Carbon Dioxide 21 mmol/L (22-29); Chloride 98 mmol/L (98-107); Globulin 2.3 g/dL (1.3-4.6); Glucose 119 mg/dL (65-115); Iron 22 ug/dL (37-145); Osmolality Calculated 285 mOsm/kg (285-295); Percent Saturation 11.7 % (20-50); Potassium 4.3 mmol/L (3.5-5.1); Sodium 129 mmol/L (136-145); Total Bilirubin 0.2 mg/dL (0.15-1.2); Total Iron Binding Capacity 188 mcg/dl; Total Protein 5.6 g/dL (6.6-8.7); Unsaturated Iron Binding 166 ug/dL (112-347)
[2022-10-25 12:59] LABS: Slide Review Slide Review Perform
[2022-10-25] MEDS: gabapentin 100 mg Capsule 200 MG PO (15:26)
[2022-10-25 16:13] LABS: Anion Gap 13.4 (5-19); Blood Urea Nitrogen 52 mg/dL (8-23); Calcium 8.7 mg/dL (8.5-10.5); Carbon Dioxide 21 mmol/L (22-29); Chloride 99 mmol/L (98-107); Glucose 107 mg/dL (65-115); Osmolality Calculated 283 mOsm/kg (285-295); Potassium 4.4 mmol/L (3.5-5.1); Sodium 129 mmol/L (136-145)
[2022-10-25] MEDS: doxycycline 100 MG in sodium chloride 0.9% (plus) 100 ML IV (17:30)
[2022-10-25] MEDS: carBAMazepine 200 mg Tablet PO (17:31)
[2022-10-25 17:39] LABS: Procalcitonin 8.89 ng/mL (0-0.5); Prolactin 20.56 ng/mL (4.8-23.3)
[2022-10-25] MEDS: acetaminophen 325 mg Tablet 650 MG PO (21:33)
[2022-10-26] VITALS (13 sets, daily range): BP systolic 104–146; BP diastolic 51–74; PULSE 74–102; RESP 15–18; TEMP 36.3–37; O2SAT 95–99
[2022-10-26] MEDS: ipratropium-albuterol 3 mL Neb INHALATION ×3 (03:00→20:08)
[2022-10-26] MEDS: enoxaparin 40 mg/0.4 mL Syringe SUBCUT (03:26)
[2022-10-26] MEDS: acetaminophen 325 mg Tablet 650 MG PO ×4 (03:30→20:16)
[2022-10-26 04:42] LABS: Potassium, Radom Urine 16 mmol/L; Urine Creatinine 67 mg/dL (28-217); Urine Random Chloride 24 mmol/L; Urine Random Sodium 32 mmol/L
[2022-10-26 05:33] LABS: Basophils % 0.7 %; Eosinophils # 0.1 10^3/uL (0.0-0.8); Eosinophils % 4.2 %; Hematocrit 26.2 % (37.0-47.0); Hemoglobin 8.4 g/dL (11.5-15.3); Lymphocytes # 0.4 10^3/uL (0.8-4.8); Mean Corpuscular HGB Conc 32.1 g/dL (30.0-36.0); Mean Corpuscular Hemoglobin 29.7 pg (28.0-34.0); Mean Corpuscular Volume 92.6 fl (81-99); Mean Platelet Volume 9.1 fL (7.4-10.4); Monocytes # 0.3 10^3/uL (0.2-0.9); Monocytes % 9.8 %; Neutrophils # 2.02 10^3/uL (1.8-7.7); Neutrophils % 70.9 %; Nucleated Red Blood Cells % 0 %; Platelet Count 155 10^3/cmm (130-400); Red Blood Count 2.83 10^6/uL (4.1-5.3); White Blood Count 2.9 10^3/uL (4.0-10.0)
[2022-10-26] MEDS: doxycycline 100 MG in sodium chloride 0.9% (plus) 100 ML IV ×2 (05:43→17:28)
[2022-10-26] MEDS: sodium chloride 0.9% 1,000 ML 75 ML IV (05:44)
[2022-10-26 05:52] LABS: Chol HDL Ratio 3.86 mg/dL (0.0-4.40); Cholesterol 135 mg/dL (0-200); HDL Cholesterol 35 mg/dL (60-100); LDL Cholesterol Calculated 74 mg/dL (50-129); Triglycerides 128 mg/dL (0-150); VLDL Cholestrol Calculation 26 mg/dL (0-30)
[2022-10-26 05:53] LABS: Alanine Aminotransferase 44 U/L (0-33); Albumin Level 3.1 g/dL (3.5-5.2); Alkaline Phosphatase 78 U/L (35-105); Anion Gap 12.1 (5-19); Aspartate Amino Transferase 43 U/L (0-32); Blood Urea Nitrogen 34 mg/dL (8-23); Calcium 8.1 mg/dL (8.5-10.5); Carbon Dioxide 20 mmol/L (22-29); Chloride 102 mmol/L (98-107); Globulin 2.4 g/dL (1.3-4.6); Glucose 113 mg/dL (65-115); Magnesium 2.1 mg/dL (1.7-2.3); Osmolality Calculated 278 mOsm/kg (285-295); Potassium 4.1 mmol/L (3.5-5.1); Sodium 130 mmol/L (136-145); Total Bilirubin 0.2 mg/dL (0.15-1.2); Total Protein 5.5 g/dL (6.6-8.7)
[2022-10-26 05:54] LABS: Ammonia 22 umol/L (11-51)
[2022-10-26 06:10] LABS: Estmated Average Glucose 120; Hemoglobin A1C 5.8 % (4.0-6.0)
[2022-10-26 06:16] LABS: Folate Level 5.9 ng/mL (4.8-37.3)
[2022-10-26 06:30] LABS: Add Urine Microscopic? YES; Bacteria Urine TRACE /hpf; Bilirubin Urine Neg (Negative); Blood Urine Neg (Negative); Glucose Urine UA Norm (Normal); Ketones Urine Negative (Negative); Leukocyte Esterase Urine Trace (Negative); Nitrate Urine Negative (Negative); Protein Urine Neg (Negative); Urine Appearance Clear (CLEAR); Urine Color Light yellow (Yellow); Urobilinogen Urine Neg (Negative); pH Urine 5 (5-7)
[2022-10-26 06:31] LABS: Add Urine Culture? No
[2022-10-26] MEDS: cefTRIAXone 1,000 MG in sodium chloride 0.9% (plus) 50 ML 100 MG IV (06:48)
[2022-10-26] MEDS: budesonide 0.5 mg/2 mL Neb 0.25 MG INHALATION ×2 (08:09→20:08)
[2022-10-26] MEDS: duloxetine 60 mg Capsule PO (08:47)
[2022-10-26] MEDS: levothyroxine 100 mcg Tablet PO (08:47)
[2022-10-26] MEDS: atorvastatin 40 mg Tablet 80 MG PO (08:47)
[2022-10-26] MEDS: pantoprazole DR 40 mg Tablet PO (08:48)
[2022-10-26] MEDS: clopidogrel 75 mg Tablet PO (08:48)
[2022-10-26] MEDS: carBAMazepine 200 mg Tablet PO ×2 (08:48→17:29)
[2022-10-26] MEDS: sennosides-docusate Tablet 1 TAB PO (08:48)
--- NOTE | 2022-10-26 10:03 | PC.CHAP ---
Pastoral Care Encounter/Spiritual Assessment Type of Contact [] Declined sewing demonstrator visit [] Patient/Family/Request visit [] Outpatient visit [] Follow-up visit [] Physician referral [] Code/Alert [x] Routine visit [] Staff referral [] Actively dying [] Patient sleeping [] Family support [] [] Out of room [] Palliative care [] [x] Receiving care in room [] Pre-surgical visit [] Trauma [] Long length of stay [] ICU visit [] Other: Relational/Emotional Strength [x] Patient feels connected with others/family/visitors/staff [] Distress [] Loneliness/isolation [] Abandonment Spirituality of Patient [x] Person of Marisel [] Attends Zoroastrianism of their Marisel [x] Believes in Prayer [] Reads Bible or Pentecostalism materials [] There are Spiritual issues to be addressed Funeral Pre Need Consultant Interventions [x] Prayer [x] Active listening [x] Non-anxious presence [x] Spiritual/emotional support [] Crisis/trauma care [x] Spiritual counseling [] Bereavement support [] Provided bereavement packet [] Provided Bible/devotional materials [] Provided toy/stuffed animal, coloring book to patient or family member [] Provided Communion [] Anointing/[place] [] Salvation [x] Completed spiritual assessment [] Other: Impact on Illness or Injury [] Angry [] Fearful [] Anxious [] Often cries [] Exhaustion [] Unable to work [] Unable to attend jehovah's witness [] Unable to walk/stand [] Unable to read [] Unable to drive [] Unable to eat/drink [] Unable to sleep [] Unable to be with family [] Patient intubated [] Other: Summary senior negative feelings about her well check with doctor +1 not sure when she well go home Time spent with patient 10 mins
[2022-10-26 12:50] LABS: Lyme AB Screen <0.90 index
--- NOTE | 2022-10-26 14:36 | P.PN_ITS ---
Subjective Subjective: No acute events overnight. Today morning patient is a lot more awake and alert, sitting in chair. Denies any nausea vomiting, headache, dizziness. States she does not really know what happened yesterday but does remember she is in the hospital right now because she felt when she went back home. States after getting home she got gradually more weak leading to her fall. Currently she is AOx3. States usually lives with a friend and is able to take care of ADLs. Blood work done today shows stable leukopenia, anemia with hemoglobin at 8.4, resolution of neutropenia, CMP showing sodium level improving to 130, uremia improving, creatinine down to 1 from 1.3 yesterday, AST/ALT elevation but improving from yesterday. Vitals/I&O/Wt Last Vital Signs Temp 97.8 F 10/26/22 11:37 Pulse 78 10/26/22 11:37 Resp 15 10/26/22 11:37 BP 108/51 10/26/22 11:37 Pulse Ox 96 10/26/22 11:37 O2 Del Method Nasal Cannula 10/26/22 11:37 O2 Flow Rate 2 10/26/22 08:32 10/25/22 10/26/22 10/26/22 22:59 06:59 14:59 Intake Total 1220 / 1556.667 851.25 / 2407.917 530 / 530 Output Total 1000 / 1000 Balance 1220 / 1556.667 -148.75 / 1407.917 530 / 530 Weight last 48 hrs Weight 74.843 kg Physical Exam Narrative: General: No acute distress, AO x3, slow to respond with some confusion, left arm in sling HEENT: PERRLA, pupils bilaterally equal and reactive Chest: Normal vesicular breath sounds, no added sounds, equal good air entry bilaterally CVS: S1-S2 regular, no murmurs, no tachycardia, no gallops, no rubs Abdomen: Soft, nontender, no organomegaly, bowel sounds present Neuro: No focal deficits, no facial deformity, AO x3, power 5/5 in all limbs Urinary Catheter Management: Smyth: Cath Placed During This Visit: yes Reason for Continuing Indwelling Catheter: Acute Urinary Retention or Obstruction Urinary Catheter Date of Insertion: 10/25/22 Urinary Catheter Time of Insertion: 16:47 Data 10/26/22 05:08 10/26/22 05:08 Micro: Microbiology 07/13/23 05:08 Blood Culture - Preliminary Blood SPECIMEN COLLECTED 10/26/22 05:08 Blood Culture - Preliminary Blood SPECIMEN COLLECTED A&P Assessment and plan (1) Altered mental status: Most likely in setting of uremia and acute kidney injury along with mild hyponatremia. CT head done yesterday negative for any acute abnormality, ammonia levels normal. Patient does take multiple medications which are at risk of polypharmacy including Cymbalta 60 mg daily, carbamazepine 200 mg twice daily, gabapentin 800 mg 3 times daily, Requip 2 mg at bedtime. Symptoms seem to be resolving with improvement in uremia. Frequent reorientation Continue to hold off on possibly contributing medications including gabapentin and Neurontin. Patient was recently discharged when she was treated for UTI. Urinalysis on current admission less likely showing UTI though still has trace leuk esterase. Continue with IV ceftriaxone. Patient does have persistent leukopenia with fluctuating neutropenia. In setting of DAKSHA and liver dysfunction there are concerns of tick infection. Tick panel sent. For now continue with doxycycline 100 mg twice daily. (2) DAKSHA (acute kidney injury): Most likely in setting of overt dehydration from medication started on last discharge for hypervolemic hyponatremia including urea tablets along with home dose of losartan. Resolving currently. Stop IV fluids for now. Urea improving to 34 and creatinine improving to 1. Medical reconciliation done for nephrotoxic drugs. Appreciate urine lites. Continue to monitor BMP daily for now. (3) Rib fractures: In setting of mechanical fall, altered mental status. Incentive spirometry. (4) Hypoxia: Most likely in setting of rib fractures. Oxygen supplementation keeping saturation over 90%. Watch for fluid overload. Currently euvolemic. (5) Fall: (6) Acute hyponatremia: Baseline seems to be 134. Improving to 130. On previous admission found to be having hypervolemic hyponatremia. On a dmission hyponatremia this time was secondary to mild dehydration in setting of acute kidney injury. Resolving. Stop IV fluids. Start on salt tablets 1 g twice daily. Monitor with BMP daily for now. Plan Full code. Regular diet. Lovenox for DVT prophylaxis. Protonix for PUD prophylaxis. Discharge planning: Patient has had multiple admission in last 1 month for various reasons including weakness, dehydration, hyponatremia at this time and acute kidney injury. Did discuss in detail with the patient that she would benefit from SNF placement for short rehab while her outpatient medications are set up. Patient declines going to SNF. States she would live with her friend who is able to take care of her. Attestations Medical Necessity Statement*: Requires further hospitalization for management of altered status in setting of acute kidney injury, hyponatremia, uremia Diagnoses Altered mental status R41.82 DAKSHA (acute kidney injury) N17.9 Rib fractures S22.49XA Hypoxia R09.02 Fall W19.XXXA Acute hyponatremia E87.1
[2022-10-26] MEDS: sodium chloride 1 gm Tablet PO (17:29)
[2022-10-26] MEDS: ketorolac 30 mg/mL INJ 15 MG IVP (22:15)
[2022-10-27] VITALS (14 sets, daily range): BP systolic 126–183; BP diastolic 72–99; PULSE 88–141; RESP 16–20; TEMP 36.8–37.2; O2SAT 92–98
--- NOTE | 2022-10-27 01:24 | PC.NURSE ---
Applied ice to patient L shoulder after tylenol was unsuccessful in pain management. Phys notified and toradol and lidocain patch ordered as other option for pain management. Ice refilled for shoulder as needed.
[2022-10-27] MEDS: TRAMadol 50 mg Tablet PO (01:34)
[2022-10-27] MEDS: acetaminophen 325 mg Tablet 650 MG PO (02:15)
[2022-10-27] MEDS: enoxaparin 40 mg/0.4 mL Syringe SUBCUT (02:19)
[2022-10-27] MEDS: lidocaine 5% Patch 1 PATCH TOPICAL (03:09)
[2022-10-27] MEDS: doxycycline 100 MG in sodium chloride 0.9% (plus) 100 ML IV ×2 (04:47→16:56)
[2022-10-27 05:22] LABS: Basophils % 0.6 %; Eosinophils # 0.2 10^3/uL (0.0-0.8); Eosinophils % 3.2 %; Hematocrit 27.5 % (37.0-47.0); Hemoglobin 9.3 g/dL (11.5-15.3); Lymphocytes # 0.5 10^3/uL (0.8-4.8); Lymphocytes % 11.3 %; Mean Corpuscular HGB Conc 33.8 g/dL (30.0-36.0); Mean Corpuscular Hemoglobin 30.7 pg (28.0-34.0); Mean Corpuscular Volume 90.8 fl (81-99); Mean Platelet Volume 9.3 fL (7.4-10.4); Monocytes # 0.5 10^3/uL (0.2-0.9); Monocytes % 11.1 %; Neutrophils # 3.44 10^3/uL (1.8-7.7); Neutrophils % 73.6 %; Nucleated Red Blood Cells % 0 %; Platelet Count 182 10^3/cmm (130-400); Red Blood Count 3.03 10^6/uL (4.1-5.3); Red Cell Distribution Width 12.9 % (12.1-15.1); White Blood Count 4.7 10^3/uL (4.0-10.0)
[2022-10-27 05:44] LABS: Alanine Aminotransferase 39 U/L (0-33); Albumin Level 3.4 g/dL (3.5-5.2); Alkaline Phosphatase 93 U/L (35-105); Anion Gap 14.1 (5-19); Aspartate Amino Transferase 29 U/L (0-32); Blood Urea Nitrogen 16 mg/dL (8-23); Calcium 8.5 mg/dL (8.5-10.5); Carbon Dioxide 20 mmol/L (22-29); Chloride 100 mmol/L (98-107); Creatinine Clr Calc Pharmacy 59.2707; Globulin 2.6 g/dL (1.3-4.6); Glucose 103 mg/dL (65-115); Osmolality Calculated 271 mOsm/kg (285-295); Potassium 4.1 mmol/L (3.5-5.1); Sodium 130 mmol/L (136-145); Total Bilirubin 0.3 mg/dL (0.15-1.2)
[2022-10-27] MEDS: cefTRIAXone 1,000 MG in sodium chloride 0.9% (plus) 50 ML 100 MG IV (06:42)
[2022-10-27] MEDS: budesonide 0.5 mg/2 mL Neb 0.25 MG INHALATION ×2 (09:21→20:43)
[2022-10-27] MEDS: ipratropium-albuterol 3 mL Neb INHALATION (09:22)
[2022-10-27] MEDS: sennosides-docusate Tablet 1 TAB PO (09:44)
[2022-10-27] MEDS: duloxetine 60 mg Capsule PO (09:45)
[2022-10-27] MEDS: sodium chloride 1 gm Tablet PO ×2 (09:45→17:59)
[2022-10-27] MEDS: levothyroxine 100 mcg Tablet PO (09:45)
[2022-10-27] MEDS: atorvastatin 40 mg Tablet 80 MG PO (09:45)
[2022-10-27] MEDS: pantoprazole DR 40 mg Tablet PO (09:45)
[2022-10-27] MEDS: carBAMazepine 200 mg Tablet PO ×2 (09:45→17:59)
[2022-10-27] MEDS: clopidogrel 75 mg Tablet PO (09:45)
--- NOTE | 2022-10-27 11:10 | ECG_ITS ---
[facility] Test Date: 2022-10-27 Pat Name: Elyssa Daniels Department: Room: 254 Gender: Female Director Of Leadership Development: : 1945 Requested By: Hugo Alvarado Order Number: [id number] Pankaj MD: Steph Nash M.D. Measurements Intervals Cable Rate: 135 P: 79 AK: 158 QRS: 17 QRSD: 77 T: 73 QT: 298 QTc: 447 Interpretive Statements SINUS TACHYCARDIA ABNORMAL RHYTHM ECG Compared to ECG 10/24/2022 20:28:54 No significant changes Electronically Signed On 10-27-2022 11:28:49 CDT by Steph Nash M.D. [email or web address]
[2022-10-27 11:59] LABS: Glucose Point of Care 136 mg/dL (70-110)
[2022-10-27] MEDS: metoprolol tartrate 1 mg/1 mL SDV 5 mL 5 MG IVP (12:07)
[2022-10-27] MEDS: amlodipine 10 mg Tablet PO (12:07)
[2022-10-27] MEDS: oxybutynin chloride XL 5 MG TABLET 20 MG PO (12:07)
[2022-10-27] MEDS: levalbuterol 0.63 mg/3 mL Neb INHALATION ×2 (13:07→20:43)
[2022-10-27] MEDS: ipratropium 0.5 mg/2.5 mL Neb INHALATION ×2 (13:08→20:43)
--- NOTE | 2022-10-27 13:20 | PM.PN ---
Subjective Subjective: No acute events overnight. Today morning examination patient is a lot more awake and alert though continues to remain weak and deconditioned. Today morning try to go to the bathroom by herself and became tachycardic and short of breath. Patient is alert to self, being in the hospital though she is slightly confused. Blood pressures done today morning elevated going up to 178 systolic with heart rate running in 120s. Blood work done shows white count up to 4.7, hemoglobin of 9.3, sodium stable 130 with creatinine and BUN improving. Document urine output last 24-hour of 1500 cc. Vitals/I&O/Wt Last Vital Signs Temp 98.3 F 10/27/22 11:43 Pulse 105 H 10/27/22 13:11 Resp 18 10/27/22 13:05 BP 178/89 10/27/22 11:43 Pulse Ox 97 10/27/22 13:05 O2 Del Method Nasal Cannula 10/27/22 13:05 O2 Flow Rate 2 10/27/22 13:05 10/26/22 10/27/22 10/27/22 22:59 06:59 14:59 Intake Total 960 / 1490 600 / 2090 290 / 290 Output Total 1500 / 1500 1200 / 1200 Balance -540 / -10 600 / 590 -910 / -910 Physical Exam Narrative: General: No acute distress, AO x3, slow to respond with some confusion, left arm in sling HEENT: PERRLA, pupils bilaterally equal and reactive Chest: Normal vesicular breath sounds, no added sounds, equal good air entry bilaterally CVS: S1-S2 regular, no murmurs, no tachycardia, no gallops, no rubs Abdomen: Soft, nontender, no organomegaly, bowel sounds present Neuro: No focal deficits, no facial deformity, AO x3, power 5/5 in all limbs Urinary Catheter Management: Smyth: Cath Placed During This Visit: yes Reason for Continuing Indwelling Catheter: Other Urinary Catheter Date of Insertion: 10/25/22 Urinary Catheter Time of Insertion: 16:47 Data 10/27/22 04:45 10/27/22 04:45 Micro: Microbiology 10/26/22 05:08 Blood Culture - Preliminary Blood NEGATIVE TO DATE 10/26/22 05:08 Blood Culture - Preliminary Blood NEGATIVE TO DATE A&P Assessment and plan (1) Altered mental status: Resolving. Most likely in setting of uremia and acute kidney injury along with mild hyponatremia. CT head done yesterday negative for any acute abnormality, ammonia levels normal. Patient does take multiple medications which are at risk of polypharmacy including Cymbalta 60 mg daily, carbamazepine 200 mg twice daily, gabapentin 800 mg 3 times daily, Requip 2 mg at bedtime. Frequent reorientation Restart gabapentin at low-dose 200 mg 3 times daily today, continue with carbamazepine and Cymbalta at home dose. Holding off on Requip. Patient was recently discharged when she was treated for UTI. Urinalysis on current admission less likely showing UTI though still has trace leuk esterase. Continue with IV ceftriaxone to finish a 5-day course. Patient does have persistent leukopenia with fluctuating neutropenia. In setting of DAKSHA and liver dysfunction there are concerns of tick infection. Tick panel sent. For now continue with doxycycline 100 mg twice daily. (2) DAKSHA (acute kidney injury): Most likely in setting of overt dehydration from medication started on last discharge for hypervolemic hyponatremia including urea tablets along with home dose of losartan. Resolved. Medical reconciliation done for nephrotoxic drugs. Appreciate urine lites. Continue to monitor BMP daily for now. (3) Rib fractures: In setting of mechanical fall, altered mental status. Incentive spirometry. (4) Hypoxia: Most likely in setting of rib fractures. Oxygen supplementation keeping saturation over 90%. Check proBNP. Patient overall 1 L positive since admission. Depending on proBNP we will plan on dialysis today. (5) Fall: (6) Acute hyponatremia: Baseline seems to be 134. Stable at 130. On previous admission found to be having hypervolemic hyponatremia. On admission hyponatremia this time was secondary to mild dehydration in setting of acute kidney injury. Portal versus IV Lasix as per proBNP results. Start on salt tablets 1 g twice daily. Monitor with BMP daily for now. Plan Hypertension: Goal blood pressure less than 140/90 mmHg. Blood pressure elevated with tachycardia. EKG showing sinus tachycardia. Start on metoprolol 25 mg twice daily, amlodipine 10 mg daily. Holding off on losartan secondary to recent DAKSHA. Full code. Regular diet. Lovenox for DVT prophylaxis. Protonix for PUD prophylaxis. Discharge planning: Patient has had multiple admission in last 1 month for various reasons including weakness, dehydration, hyponatremia at this time and acute kidney injury. Did discuss in detail with the patient that she would benefit from SNF placement for short rehab while her outpatient medications are set up. Patient declines going to SNF. States she would live with her friend who is able to take care of her. Attestations Medical Necessity Statement*: Requires further hospitalization for management of altered mental status in setting of acute kidney injury, uremia, physical deconditioning while safe discharge planning is sought, rib fractures secondary to fall Diagnoses Altered mental status R41.82 DAKSHA (acute kidney injury) N17.9 Rib fractures S22.49XA Hypoxia R09.02 Fall W19.XXXA Acute hyponatremia E87.1
[2022-10-27 13:27] LABS: NT Pro B Type Natriuretic Pept 4753 pg/mL (0-450)
[2022-10-27] MEDS: FUROsemide 40 mg Tablet PO (13:36)
--- NOTE | 2022-10-27 14:07 | PC.NURSE ---
Patient's caregiver, Maria, called requesting information on patient's current status, however was not on patient's PHI. Ti Matias, patient's friend was on the PHI and he was present with Maria at the time of the call. She placed the call on speaker and since patient is intermittently confused, I obtained verbal permission from Ti to speak about patient's current condition. He approved and I reviewed patient's lab results from this morning, including sodium. I also informed them of patient's tachycardia that has been noted today and medications that were administered to treat that. They inquired about visiting and I provided information for location of Med/Surg and welcomed them to visit at any time, providing them patient's room number as well.
[2022-10-27] MEDS: gabapentin 100 mg Capsule 200 MG PO ×2 (16:56→21:19)
[2022-10-27] MEDS: ALPRAZolam 0.5 mg Tablet PO (16:56)
[2022-10-27] MEDS: metoprolol tartrate 25 mg Tablet PO (21:20)
[2022-10-28] VITALS (14 sets, daily range): BP systolic 122–162; BP diastolic 70–79; PULSE 16–92; RESP 15–19; TEMP 36.8–36.9; O2SAT 90–96
[2022-10-28] MEDS: levalbuterol 0.63 mg/3 mL Neb INHALATION ×2 (02:30→07:47)
[2022-10-28] MEDS: ipratropium 0.5 mg/2.5 mL Neb INHALATION ×2 (02:30→07:47)
[2022-10-28] MEDS: enoxaparin 40 mg/0.4 mL Syringe SUBCUT (03:05)
[2022-10-28 03:42] LABS: Basophils % 1.1 %; Eosinophils # 0.1 10^3/uL (0.0-0.8); Eosinophils % 2.7 %; Hematocrit 27.2 % (37.0-47.0); Hemoglobin 8.9 g/dL (11.5-15.3); Lymphocytes # 0.9 10^3/uL (0.8-4.8); Mean Corpuscular HGB Conc 32.7 g/dL (30.0-36.0); Mean Corpuscular Hemoglobin 29.1 pg (28.0-34.0); Mean Corpuscular Volume 88.9 fl (81-99); Mean Platelet Volume 9.4 fL (7.4-10.4); Monocytes # 0.5 10^3/uL (0.2-0.9); Monocytes % 14.6 %; Neutrophils # 2.05 10^3/uL (1.8-7.7); Neutrophils % 56.3 %; Nucleated Red Blood Cells % 0 %; Platelet Count 206 10^3/cmm (130-400); Red Blood Count 3.06 10^6/uL (4.1-5.3); Red Cell Distribution Width 12.8 % (12.1-15.1); White Blood Count 3.6 10^3/uL (4.0-10.0)
[2022-10-28 03:56] LABS: Alanine Aminotransferase 32 U/L (0-33); Albumin Level 3.3 g/dL (3.5-5.2); Alkaline Phosphatase 94 U/L (35-105); Anion Gap 15.7 (5-19); Aspartate Amino Transferase 19 U/L (0-32); Blood Urea Nitrogen 12 mg/dL (8-23); Calcium 8.5 mg/dL (8.5-10.5); Carbon Dioxide 21 mmol/L (22-29); Chloride 99 mmol/L (98-107); Creatinine Clr Calc Pharmacy 59.2707; Globulin 2.6 g/dL (1.3-4.6); Glucose 85 mg/dL (65-115); Osmolality Calculated 273 mOsm/kg (285-295); Potassium 3.7 mmol/L (3.5-5.1); Sodium 132 mmol/L (136-145); Total Bilirubin 0.3 mg/dL (0.15-1.2); Total Protein 5.9 g/dL (6.6-8.7)
[2022-10-28] MEDS: doxycycline 100 MG in sodium chloride 0.9% (plus) 100 ML IV ×2 (05:41→17:17)
[2022-10-28] MEDS: cefTRIAXone 1,000 MG in sodium chloride 0.9% (plus) 50 ML 100 MG IV (06:36)
[2022-10-28] MEDS: budesonide 0.5 mg/2 mL Neb 0.25 MG INHALATION (07:47)
--- NOTE | 2022-10-28 08:53 | PC.SOCIAL ---
IMM update IMM updated with patient. Verbalized an understanding. Copy PG 2 provided. Initialled, dated, timed, and placed in chart.
[2022-10-28] MEDS: sennosides-docusate Tablet 1 TAB PO (09:40)
[2022-10-28] MEDS: amlodipine 10 mg Tablet PO (09:40)
[2022-10-28] MEDS: carBAMazepine 200 mg Tablet PO ×2 (09:40→17:17)
[2022-10-28] MEDS: sodium chloride 1 gm Tablet PO ×2 (09:40→17:17)
[2022-10-28] MEDS: duloxetine 60 mg Capsule PO (09:40)
[2022-10-28] MEDS: pantoprazole DR 40 mg Tablet PO (09:40)
[2022-10-28] MEDS: levothyroxine 100 mcg Tablet PO (09:40)
[2022-10-28] MEDS: gabapentin 100 mg Capsule 200 MG PO ×3 (09:41→20:30)
[2022-10-28] MEDS: atorvastatin 40 mg Tablet 80 MG PO (09:41)
[2022-10-28] MEDS: lidocaine 5% Patch 1 PATCH TOPICAL (09:51)
[2022-10-28] MEDS: metoprolol tartrate 25 mg Tablet PO ×2 (10:02→20:30)
[2022-10-28] MEDS: oxybutynin chloride XL 5 MG TABLET 20 MG PO (10:03)
[2022-10-28] MEDS: clopidogrel 75 mg Tablet PO (10:03)
--- NOTE | 2022-10-28 13:40 | P.PN_ITS ---
Subjective Subjective: Patient reports that she is feeling better. She reports that she does not want the nursing facility because she cannot afford them. I discussed my concerns over her noted weakness, recurrent falls, and recurrent admissions. Concern over her caring for self. She stated that she would be going home with another individual who would care for her. This individual is not currently present. She states that he could come out. Encourage patient to reconsider postacute care. She stated that if it was covered she would reconsider. Otherwise, patient denies other new complaints. Denies nausea, emesis, fevers or chills. Continues to have some chest wall discomfort. Medications: Reviewed: Yes Vitals/I&O/Wt Last Vital Signs Temp 98.5 F 10/28/22 11:23 Pulse 81 10/28/22 13:23 Resp 16 10/28/22 13:23 BP 162/74 10/28/22 11:23 Pulse Ox 91 10/28/22 13:23 O2 Del Method Room Air 10/28/22 13:23 O2 Flow Rate 2 10/27/22 13:05 10/27/22 10/28/22 10/28/22 22:59 06:59 14:59 Intake Total 100 / 390 100 / 490 960 / 960 Output Total 1900 / 3100 100 / 3200 Balance -1800 / -2710 0 / -2710 960 / 960 Physical Exam Narrative: General: Patient is awake. Frail appearing. Head: Normocephalic. Atraumatic. EOM intact. Neck: No JVD. Cardiovascular: RRR. No gallops. No murmurs. Lungs: Clear to auscultation, no use of accessory muscles, no crackles or wheezes. Skin: No jaundice. No rashes. Abdomen: Normal bowel sounds, abdomen soft and nontender. Genito Urinary: Genital exam not performed since complaints not related. Rectal: Rectal exam not performed since no symptoms indicated blood loss. Extremities: No cyanosis or clubbing. Musculoskeletal: Poor muscular development. Neurological: Moves all 4 extremities. No myoclonus. Urinary Catheter Management: Smyth: Cath Placed During This Visit: yes Reason for Continuing Indwelling Catheter: Other Urinary Catheter Date of Insertion: 10/25/22 Urinary Catheter Time of Insertion: 16:47 Data 10/28/22 02:41 10/28/22 02:41 A&P Assessment and plan (1) Altered mental status: Patient reportedly has some confusion on and off. Treating underlying UTI Follow-up tick panel Continue to monitor (2) Rib fractures: Continue supportive care (3) Fall: Fall precautions (4) Acute hyponatremia: Acute on chronic hyponatremia, acuteness has resolved (5) Weakness: Continue therapy Would benefit from postacute care Follow-up with case management (6) Trigeminal neuralgia: Continue Tegretol (7) DAKSHA (acute kidney injury): Resolved (8) Hypoxia: Resolved Plan DVT: Lovenox CODE STATUS: Full code Attestations Medical Necessity Statement*: Patient remains severely debilitated and weak with unsafe discharge plan requiring ongoing hospitalization. Coding Level of Care Code Acute Code for [facility] Diagnoses Altered mental status R41.82 Rib fractures S22.49XA Fall W19.XXXA Acute hyponatremia E87.1 Weakness R53.1 Trigeminal neuralgia G50.0 DAKSHA (acute kidney injury) N17.9 Hypoxia R09.02
[2022-10-28 18:40] LABS: RMSF IGG NOT DETECTED; RMSF IGM NOT DETECTED
[2022-10-28 21:09] LABS: E. Chaffeensis AB IGG <1:64; E. Chaffeensis AB IGM <1:20
[2022-10-29] VITALS (8 sets, daily range): BP systolic 135–175; BP diastolic 70–76; PULSE 62–77; RESP 17–20; TEMP 36.3–36.9; O2SAT 93–96
[2022-10-29] MEDS: TRAMadol 50 mg Tablet PO ×2 (01:29→14:49)
[2022-10-29] MEDS: enoxaparin 40 mg/0.4 mL Syringe SUBCUT (01:31)
[2022-10-29] MEDS: doxycycline 100 MG in sodium chloride 0.9% (plus) 100 ML IV ×2 (05:24→20:18)
[2022-10-29] MEDS: cefTRIAXone 1,000 MG in sodium chloride 0.9% (plus) 50 ML 100 MG IV (07:16)
[2022-10-29] MEDS: levothyroxine 100 mcg Tablet PO (08:47)
[2022-10-29] MEDS: duloxetine 60 mg Capsule PO (08:48)
[2022-10-29] MEDS: gabapentin 100 mg Capsule 200 MG PO ×3 (08:48→20:22)
[2022-10-29] MEDS: pantoprazole DR 40 mg Tablet PO (08:48)
[2022-10-29] MEDS: sodium chloride 1 gm Tablet PO ×2 (08:48→17:16)
[2022-10-29] MEDS: carBAMazepine 200 mg Tablet PO ×2 (08:48→17:16)
[2022-10-29] MEDS: sennosides-docusate Tablet 1 TAB PO (08:49)
[2022-10-29] MEDS: clopidogrel 75 mg Tablet PO (08:49)
[2022-10-29] MEDS: atorvastatin 40 mg Tablet 80 MG PO (08:49)
[2022-10-29] MEDS: acetaminophen 325 mg Tablet 650 MG PO ×2 (08:49→20:25)
[2022-10-29] MEDS: oxybutynin chloride XL 5 MG TABLET 20 MG PO (08:49)
[2022-10-29] MEDS: amlodipine 10 mg Tablet PO (08:49)
[2022-10-29] MEDS: lidocaine 5% Patch 1 PATCH TOPICAL (08:50)
[2022-10-29] MEDS: metoprolol tartrate 25 mg Tablet PO ×2 (08:51→20:22)
--- NOTE | 2022-10-29 13:38 | P.PN_ITS ---
Subjective Subjective: Patient report chest discomfort at times at her rib fracture sites. She denies other new complaints. Denies nausea, emesis, fevers or chills. She reports that she be willing to go to [facility] but does not want to go to any others outside of the [facility]. Medications: Reviewed: Yes Vitals/I&O/Wt Last Vital Signs Temp 97.3 F L 10/29/22 07:39 Pulse 77 10/29/22 08:00 Resp 20 H 10/29/22 08:00 BP 145/71 10/29/22 08:00 Pulse Ox 95 10/29/22 08:00 O2 Del Method Room Air 10/29/22 08:00 O2 Flow Rate 2 10/29/22 08:00 10/28/22 10/29/22 10/29/22 22:59 06:59 14:59 Intake Total 580 / 1590 600 / 600 Output Total 700 / 700 450 / 1150 Balance -120 / 890 -450 / 440 600 / 600 Physical Exam Narrative: General: Patient is awake. Alert. Frail appearing. Head: Normocephalic. Atraumatic. EOM intact. Neck: No JVD. Cardiovascular: RRR. No gallops. No murmurs. Lungs: Clear to auscultation, no use of accessory muscles, no crackles or wheezes. Skin: No jaundice. No rashes. Abdomen: Normal bowel sounds, abdomen soft and nontender. Extremities: No cyanosis or clubbing. Musculoskeletal: Poor muscular development. Neurological: Moves all 4 extremities. No myoclonus. Urinary Catheter Management: Smyth: Cath Placed During This Visit: yes Reason for Continuing Indwelling Catheter: Other Urinary Catheter Date of Insertion: 10/25/22 Urinary Catheter Time of Insertion: 16:47 Data 10/28/22 02:41 10/28/22 02:41 A&P Assessment and plan (1) Weakness: Continue therapy Discussed with case management, follow-up with [place] on Sunday (2) Altered mental status: Mentation is nearly at baseline Treating underlying UTI Follow-up tick panel Continue to monitor (3) Rib fractures: Continue supportive care (4) Fall: Fall precautions (5) Acute hyponatremia: Chronic hyponatremia (6) Trigeminal neuralgia: Continue Tegretol (7) DAKSHA (acute kidney injury): Resolved (8) Hypoxia: Resolved Plan DVT: Lovenox CODE STATUS: Full code Attestations Medical Necessity Statement*: Patient requires ongoing hospitalization for therapy, serial labs, and supportive care Coding Level of Care Code Acute Code for [facility] Diagnoses Weakness R53.1 Altered mental status R41.82 Rib fractures S22.49XA Fall W19.XXXA Acute hyponatremia E87.1 Trigeminal neuralgia G50.0 DAKSHA (acute kidney injury) N17.9 Hypoxia R09.02
[2022-10-29] MEDS: sennosides-docusate Tablet 2 TAB PO (17:17)
[2022-10-30] VITALS (10 sets, daily range): BP systolic 119–175; BP diastolic 64–84; PULSE 60–89; RESP 15–18; TEMP 36.2–37.5; O2SAT 93–96
[2022-10-30] MEDS: enoxaparin 40 mg/0.4 mL Syringe SUBCUT (02:24)
[2022-10-30] MEDS: cefTRIAXone 1,000 MG in sodium chloride 0.9% (plus) 50 ML 100 MG IV (06:06)
[2022-10-30 06:16] LABS: Albumin Level 3.2 g/dL (3.5-5.2); Blood Urea Nitrogen 8 mg/dL (8-23); Calcium 8.5 mg/dL (8.5-10.5); Carbon Dioxide 21 mmol/L (22-29); Chloride 101 mmol/L (98-107); Creatinine Clr Calc Pharmacy 59.2707; Glucose 97 mg/dL (65-115); Sodium 132 mmol/L (136-145)
[2022-10-30 06:19] LABS: Anion Gap 15.1 (5-19); Phosphorus 3.4 mg/dL (2.5-4.5); Potassium 5.1 mmol/L (3.5-5.1)
[2022-10-30] MEDS: oxybutynin chloride XL 5 MG TABLET 20 MG PO (10:00)
[2022-10-30] MEDS: doxycycline 100 MG in sodium chloride 0.9% (plus) 100 ML IV ×2 (10:01→21:02)
[2022-10-30] MEDS: atorvastatin 40 mg Tablet 80 MG PO (10:02)
[2022-10-30] MEDS: metoprolol tartrate 25 mg Tablet PO ×2 (10:02→21:04)
[2022-10-30] MEDS: gabapentin 100 mg Capsule 200 MG PO ×3 (10:02→21:04)
[2022-10-30] MEDS: sennosides-docusate Tablet 2 TAB PO ×2 (10:02→17:32)
[2022-10-30] MEDS: levothyroxine 100 mcg Tablet PO (10:03)
[2022-10-30] MEDS: carBAMazepine 200 mg Tablet PO ×2 (10:04→17:32)
[2022-10-30] MEDS: amlodipine 10 mg Tablet PO (10:04)
[2022-10-30] MEDS: clopidogrel 75 mg Tablet PO (10:04)
[2022-10-30] MEDS: sodium chloride 1 gm Tablet PO ×2 (10:04→17:32)
[2022-10-30] MEDS: duloxetine 60 mg Capsule PO (10:04)
[2022-10-30] MEDS: lidocaine 5% Patch 1 PATCH TOPICAL (10:05)
[2022-10-30] MEDS: pantoprazole DR 40 mg Tablet PO (10:05)
--- NOTE | 2022-10-30 11:49 | PC.SOCIAL ---
IMM Update pg 2 of IMM updated and reviewed w/ patient. Copy provided and Copy in chart dated, and initialed.
--- NOTE | 2022-10-30 18:41 | P.PN_ITS ---
Subjective Subjective: Patient was seen and examined this morning overall she is doing better. Medications: Reviewed: Yes Medication Review Details: Generic Name Dose Route Start Last Admin Trade Name Freq PRN Reason Stop Dose Admin Acetaminophen 650 mg 10/25/22 02:30 10/29/22 20:25 Acetaminophen 32 5 Mg Tablet PO 650 mg Q6H PRN Administration Mild/Mod Pain Or Temp >/= 101 Amlodipine Besylat e 10 mg 10/27/22 11:30 10/30/22 10:04 Amlodipine 10 Mg Tablet PO 10 mg DAILY ANNIA Administration Atorvastatin Calci um 80 mg 10/26/22 09:00 10/30/22 10:02 Atorvastatin 40 Mg Tablet PO 80 mg DAILY ANNIA Administration Carbamazepine 200 mg 10/25/22 18:00 10/30/22 17:32 Carbamazepine 20 0 Mg Tablet PO 200 mg BID ANNIA Administration Clopidogrel Bisulf ate 75 mg 10/26/22 09:00 10/30/22 10:04 Clopidogrel 75 M g Tablet PO 75 mg DAILY ANNIA Administration Duloxetine HCl 60 mg 10/26/22 09:00 10/30/22 10:04 Duloxetine 60 Mg Capsule PO 60 mg DAILY ANNIA Administration Enoxaparin Sodium 40 mg 10/25/22 02:30 10/30/22 02:24 Enoxaparin 40 Mg /0.4 Ml Syringe SUBCUT 40 mg Q24H ANNIA Administration Gabapentin 200 mg 10/25/22 15:00 10/30/22 17:32 Gabapentin 100 M g Capsule PO 200 mg TID ANNIA Administration Ceftriaxone Sodium 1,000 mg/ 50 mls @ 100 mls/ hr 10/25/22 06:45 10/30/22 06:45 Sodium Chloride IV Infused Q24H ANNIA Infusion Protocol Doxycycline Hyclat e 100 mg/ 100 mls @ 100 mls /hr 10/25/22 17:00 10/30/22 12:00 Sodium Chloride IV Infused Q12H ANNIA Infusion Protocol Levothyroxine Sodi um 100 mcg 10/26/22 09:00 10/30/22 10:03 Levothyroxine 10 0 Mcg Tablet PO 100 mcg DAILY ANNIA Administration Lidocaine 1 patch 10/27/22 03:00 10/30/22 10:05 Lidocaine 5% Pat ch TOPICAL 1 patch ANNIA Administration Metoprolol Tartrat e 25 mg 10/27/22 21:00 10/30/22 10:02 Metoprolol Tartr ate 25 Mg Tablet PO 25 mg BID@0900,2100 ANNIA Administration Oxybutynin Chlorid e 20 mg 10/27/22 11:30 10/30/22 10:00 Oxybutynin Chlor linette Xl 5 Mg Tablet PO 20 mg DAILY ANNIA Administration Pantoprazole Sodiu m 40 mg 10/25/22 09:00 10/30/22 10:[address] 40 Mg Tablet PO 40 mg DAILY ANNIA Administration Senna/Docusate Sod ium 2 tab 10/29/22 18:00 10/30/22 17:32 Sennosides-Docus ate Tablet PO 2 tab BID ANNIA Administration Sodium Chloride 1 gm 10/26/22 18:00 10/30/22 17:32 Sodium Chloride 1 Gm Tablet PO 1 gm BID ANNIA Administration Tramadol HCl 50 mg 10/26/22 21:41 10/29/22 14:49 Tramadol 50 Mg T ablet PO 50 mg Q8H PRN Administration MODERATE PAIN Vitals/I&O/Wt Last Vital Signs Temp 98.6 F 10/30/22 15:54 Pulse 73 10/30/22 15:54 Resp 17 10/30/22 15:54 BP 160/75 10/30/22 16:28 Pulse Ox 96 10/30/22 15:54 O2 Del Method Room Air 10/30/22 15:54 O2 Flow Rate 2 10/29/22 08:00 10/30/22 10/30/22 10/30/22 06:59 14:59 22:59 Intake Total 50 / 1160 100 / 100 240 / 340 Output Total 900 / 1550 Balance -850 / -390 100 / 100 240 / 340 Physical Exam HENMT: COMMON NORMALS: normocephalic and atraumatic HEAD & SCALP: normocephalic and atraumatic Resp: COMMON NORMALS: normal respiratory effort, No retractions, No use of accessory muscles and clear to auscultation bilaterally EFFORT & INSPECTION: Yes symmetric chest movement AUSCULTATION: clear to auscultation bilaterally Cardio: COMMON NORMALS: regular rate, regular rhythm, S1 normal heart sound present, S2 normal heart sound present, No gallops present (Cardio), No murmurs present (Cardio), No rub (Cardio) and Peripheral pulses 2+ throughout RATE: regular rate RHYTHM: regular rhythm HEART SOUNDS: S1 normal heart sound present and S2 normal heart sound present PERIPHERAL PULSES: Peripheral pulses 2+ throughout GI: COMMON NORMALS: Normal to inspection, nondistended, normoactive bowel sounds present, Soft to palpation, non-tender, No hepatosplenomegaly present and no masses AUSCULTATION: Yes normoactive bowel sounds PALPATION: Yes Soft to palpation and Yes No hepatosplenomegaly present RECTAL EXAM: deferred Extremity: COMMON NORMALS: no clubbing, cyanosis or edema and no pedal edema Urinary Catheter Management: Smyth: Cath Placed During This Visit: yes, but has since been removed by the nurse Reason for Continuing Indwelling Catheter: Does Not Meet Criteria Urinary Catheter Date of Insertion: 10/25/22 Urinary Catheter Time of Insertion: 16:47 Date Urinary Catheter Removed: 10/30/22 Time Urinary Catheter Discontinued: 17:18 Data 10/28/22 02:41 10/30/22 05:30 A&P Assessment and plan (1) Altered mental status: Resolved Most likely in setting of uremia and acute kidney injury along with mild hyponatremia. CT head done yesterday negative for any acute abnormality, ammonia levels normal. Patient does take multiple medications which are at risk of polypharmacy including Cymbalta 60 mg daily, carbamazepine 200 mg twice daily, gabapentin 800 mg 3 times daily, Requip 2 mg at bedtime. Frequent reorientation Restart gabapentin at low-dose 200 mg 3 times daily today, continue with carbamazepine and Cymbalta at home dose. Holding off on Requip. Patient was recently discharged when she was treated for UTI. Urinalysis on current admission less likely showing UTI though still has trace leuk esterase. Continue with IV ceftriaxone to finish a 5-day course. Patient does have persistent leukopenia with fluctuating neutropenia. In setting of DAKSHA and liver dysfunction there are concerns of tick infection. Tick panel sent. For now continue with doxycycline 100 mg twice daily. (2) DAKSHA (acute kidney injury): Most likely in setting of overt dehydration from medication started on last discharge for hypervolemic hyponatremia including urea tablets along with home dose of losartan. Resolved. Medical reconciliation done for nephrotoxic drugs. Appreciate urine lites. Continue to monitor BMP daily for now. (3) Rib fractures: In setting of mechanical fall, altered mental status. Incentive spirometry. (4) Hypoxia: Most likely in setting of rib fractures. Oxygen supplementation keeping saturation over 90%. Check proBNP. Patient overall 1 L positive since admission. Depending on proBNP we will plan on dialysis today. (5) Fall: (6) Acute hyponatremia: Baseline seems to be 134. Stable at 130. On previous admission found to be having hypervolemic hyponatremia. On admission hyponatremia this time was secondary to mild dehydration in setting of acute kidney injury. Portal versus IV Lasix as per proBNP results. Start on salt tablets 1 g twice daily. Monitor with BMP daily for now. Plan Hypertension: Goal blood pressure less than 140/90 mmHg. Blood pressure elevated with tachycardia. EKG showing sinus tachycardia. Start on metoprolol 25 mg twice daily, amlodipine 10 mg daily. Holding off on losartan secondary to recent DAKSHA. Full code. Regular diet. Lovenox for DVT prophylaxis. Protonix for PUD prophylaxis. Discharge planning: Currently she is awaiting SNF placement Attestations Medical Necessity Statement*: Awaiting placement to SNF. Coding Level of Care Code Acute Code for [facility] Diagnoses Altered mental status R41.82 DAKSHA (acute kidney injury) N17.9 Rib fractures S22.49XA Hypoxia R09.02 Fall W19.XXXA Acute hyponatremia E87.1
[2022-10-30] MEDS: acetaminophen 325 mg Tablet 650 MG PO (21:07)
[2022-10-31] VITALS (7 sets, daily range): BP systolic 98–181; BP diastolic 57–89; PULSE 62–117; RESP 15–20; TEMP 36.6–37.1; O2SAT 93–97
[2022-10-31] MEDS: enoxaparin 40 mg/0.4 mL Syringe SUBCUT (02:46)
[2022-10-31] MEDS: cefTRIAXone 1,000 MG in sodium chloride 0.9% (plus) 50 ML 100 MG IV (06:16)
--- NOTE | 2022-10-31 11:34 | PM.DCS ---
Discharge Providers Date of Admission: 10/25/22 00:53 Date of Discharge: October 31, 2022 Attending Provider at Admission: Blayne Billings MD Attending Provider at Discharge: Blayne Billings MD Primary Care Provider: Brett Guallpa MD Diagnoses at Discharge Discharge Diagnosis (1) Altered mental status: Status: Acute (2) DAKSHA (acute kidney injury): Status: Acute (3) Rib fractures: Status: Acute (4) Hypoxia: Status: Acute (5) Fall: Status: Acute (6) Acute hyponatremia: Status: Acute Reason for Visit Reason for Visit: AMS, weakness Hospital Course Hospital Course HPI: Nafisa Christiansen? 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 Found to have?Mildly displaced lateral left 3rd, 4th, and 5th rib fractures. no consolidation. She was initially admitted for the management of DAKSHA secondary dehydration,hypoxia, secondary to fracture, she was kept on IV hydration, BMP was monitored, nephrotoxic's were avoided, at the time of discharge DAKSHA resolved. During the hospital stay she was also managed for Altered mental status, thought secondary to, DAKSHA dehydration mild hyponatremia, possible polypharmacy, CT head without contrast, failed to show any acute intracranial pathology, ammonia was normal, as the patient is on Cymbalta carbamazepine gabapentin requip, these were initially kept on hold, frequent reorientation was done, patient was recently discharged after being managed for UTI, was empirically kept on ceftriaxone, though urinalysis is not very convincing for UTI, patient was also kept on, doxycycline, 100 mg p.o. twice daily, as there was some concern for possible tick infection, given the patient is having leukopenia, tick panel currently is pending, based on the overall clinical suspicion, possibility of tick infection is low, she was on doxycycline during the hospital stay, has not been continued on discharge. At the time of discharge altered mental status had completely resolved, for history of hyponatremia she was kept on salt tablets, serum sodium at the time of discharge appears to be, hanging around baseline, of 130-135. She was kept on salt tablet during the hospital stay, has been asked to continue on Ure-na. Hypoxia had resolved at time of discharge she was saturating well on room air, was possibly related to rib fracture, at the time of discharge she was not complaining of any significant rib pain. Given the fact the patient is having recurrent falls, and frequent readmissions, she was discharged to short-term rehab. Overall patient responded well to above medical management and is being discharged stable condition. Physical Exam HENMT: COMMON NORMALS: normocephalic and atraumatic HEAD & SCALP: normocephalic and atraumatic Resp: COMMON NORMALS: clear to auscultation bilaterally EFFORT & INSPECTION: Yes symmetric chest movement AUSCULTATION: clear to auscultation bilaterally Cardio: COMMON NORMALS: regular rate, regular rhythm, S1 normal heart sound present, S2 normal heart sound present, No gallops present (Cardio), No murmurs present (Cardio), No rub (Cardio) and Peripheral pulses 2+ throughout RATE: regular rate RHYTHM: regular rhythm HEART SOUNDS: S1 normal heart sound present and S2 normal heart sound present PERIPHERAL PULSES: Peripheral pulses 2+ throughout GI: COMMON NORMALS: Normal to inspection, nondistended, normoactive bowel sounds present, Soft to palpation, non-tender, No hepatosplenomegaly present and no masses AUSCULTATION: Yes normoactive bowel sounds PALPATION: Yes Soft to palpation and Yes No hepatosplenomegaly present RECTAL EXAM: deferred Extremity: COMMON NORMALS: no clubbing, cyanosis or edema and no pedal edema Urinary Catheter Management: Smyth: Cath Placed During This Visit: yes, but has since been removed by the nurse Reason for Continuing Indwelling Catheter: Does Not Meet Criteria Urinary Catheter Date of Insertion: 10/25/22 Urinary Catheter Time of Insertion: 16:47 Date Urinary Catheter Removed: 10/30/22 Time Urinary Catheter Discontinued: 17:18 Discharge Data Studies Completed and Pending Completed Studies During Hospitalization Category Date Time Status CT head wo con* [id number] Routine Cat Scan 10/25/22 06:31 Completed CXRP [XR chest 1V portable [id number]] Stat Exams 10/24/22 23:33 Completed Pending at discharge Category Date Time Status BMP [Basic Metabolic Panel] AM LABS Lab 11/01/22 04:00 Ordered COVID [SARS Covid-2 Antigen] Routine Lab 10/31/22 11:05 Uncollected Urine Eosinophils Routine Lab 10/25/22 15:57 Ordered Radiology Impressions Chest X-Ray 10/24/22 23:33 IMPRESSION: 1. Mildly displaced lateral left 3rd, 4th, and 5th rib fractures. 2. No acute cardiopulmonary findings. Head CT 10/25/22 06:31 IMPRESSION: 1. No evidence of intracranial hemorrhage or mass effect. 2. Moderate small vessel changes. Moderate parenchymal volume loss. 3. Intracranial vascular calcification. 4. No acute intracranial findings. Laboratory Results WBC 3.6 10^3/uL (4.0-10.0) L 10/28/22 02:41 Corrected WBC Cancelled 10/24/22 21:17 RBC 3.06 10^6/uL (4.1-5.3) L 10/28/22 02:41 Hgb 8.9 g/dL (11.5-15.3) L 10/28/22 02:41 Hct 27.2 % (37.0-47.0) L 10/28/22 02:41 MCV 88.9 fl (81-99) 10/28/22 02:41 MCH 29.1 pg (28.0-34.0) 10/28/22 02:41 MCHC 32.7 g/dL (30.0-36.0) 10/28/22 02:41 RDW 12.8 % (12.1-15.1) 10/28/22 02:41 Plt Count 206 10^3/cmm (130-400) 10/28/22 02:41 MPV 9.4 fL (7.4-10.4) 10/28/22 02:41 Gran % Cancelled 10/24/22 21:17 Neut % (Auto) 56.3 % 10/28/22 02:41 Lymph % (Auto) 25.0 % 10/28/22 02:41 [place] % (Auto) 14.6 % 10/28/22 02:41 Eos % (Auto) 2.7 % 10/28/22 02:41 Baso % (Auto) 1.1 % 10/28/22 02:41 Neut # (Auto) 2.05 10^3/uL (1.8-7.7) 10/28/22 02:41 Lymph # (Auto) 0.9 10^3/uL (0.8-4.8) 10/28/22 02:41 [place] # (Auto) 0.5 10^3/uL (0.2-0.9) 10/28/22 02:41 Eos # (Auto) 0.1 10^3/uL (0.0-0.8) 10/28/22 02:41 Baso # (Auto) 0.0 10^3/uL (0.0-0.1) 10/28/22 02:41 Absolute Gran (auto) Cancelled 10/24/22 21:17 Nucleated RBC % (auto) 0 % 10/28/22 02:41 Nucleated RBCs # 0.0 /100WBC 10/28/22 02:41 Specimen Type Arterial 10/24/22 23:50 Sample Site Brachial, right 10/24/22 23:50 ABG pH 7.40 (7.35-7.45) 10/24/22 23:50 ABG pCO2 34.6 mmHg (35-45) L 10/24/22 23:50 ABG pO2 96.0 mmHg (80.0-100.0) 10/24/22 23:50 ABG HCO3 21.3 mmol/L (22-26) L 10/24/22 23:50 ABG Base Excess -3.0 mmol/L (-2.0-2.0) L 10/24/22 23:50 Donn Test N/a 10/24/22 23:50 Hematocrit 31.1 % (37-47) L 10/24/22 23:50 O2 Delivery Device Nc 10/24/22 23:50 O2 Liters/Min 3.0 % 10/24/22 23:50 FiO2 32.0 % 10/24/22 23:50 Director Supply ID Tamika 10/24/22 23:50 Sodium 132 mmol/L (136-145) L 10/30/22 05:30 Potassium 5.1 mmol/L (3.5-5.1) 10/30/22 05:30 Chloride 101 mmol/L (98-107) 10/30/22 05:30 Carbon Dioxide 21 mmol/L (22-29) L 10/30/22 05:30 Anion Gap 15.1 (5-19) 10/30/22 05:30 BUN 8 mg/dL (8-23) 10/30/22 05:30 Creatinine 0.6 mg/dL (0.5-0.9) 10/30/22 05:30 GFR Calculation Not Reportable 10/30/22 05:30 Glucose 97 mg/dL (65-115) 10/30/22 05:30 POC Glucose 136 mg/dL (70-110) H 10/27/22 11:52 Estimat Average Glucose 120 10/26/22 05:08 Hemoglobin A1c 5.8 % (4.0-6.0) 10/26/22 05:08 Calculated Osmolality 273 mOsm/kg (285-295) L 10/28/22 02:41 Calcium 8.5 mg/dL (8.5-10.5) 10/30/22 05:30 Phosphorus 3.4 mg/dL (2.5-4.5) 10/30/22 05:30 Magnesium 2.1 mg/dL (1.7-2.3) 10/26/22 05:08 Iron 22 ug/dL (37-145) L 10/25/22 12:16 TIBC 188 mcg/dl 10/25/22 12:16 % Saturation 11.7 % (20-50) L 10/25/22 12:16 Unsat Iron Binding 166 ug/dL (112-347) 10/25/22 12:16 Total Bilirubin 0.3 mg/dL (0.15-1.2) 10/28/22 02:41 AST 19 U/L (0-32) 10/28/22 02:41 ALT 32 U/L (0-33) 10/28/22 02:41 Alkaline Phosphatase 94 U/L (35-105) 10/28/22 02:41 Ammonia 22 umol/L (11-51) 10/26/22 05:08 Creatine Kinase Cancelled 10/24/22 20:50 NT-Pro-B Natriuret Pep 4753 pg/mL (0-450) H 10/27/22 04:45 Total Protein 5.9 g/dL (6.6-8.7) L 10/28/22 02:41 Albumin 3.2 g/dL (3.5-5.2) L 10/30/22 05:30 Globulin 2.6 g/dL (1.3-4.6) 10/28/22 02:41 Triglycerides 128 mg/dL (0-150) 10/26/22 05:08 Cholesterol 135 mg/dL (0-200) 10/26/22 05:08 LDL Cholesterol, Calc 74 mg/dL (50-129) 10/26/22 05:08 Total VLDL Cholesterol 26 mg/dL (0-30) 10/26/22 05:08 HDL Cholesterol 35 mg/dL (60-100) L 10/26/22 05:08 Cholesterol/HDL Ratio 3.86 mg/dL (0.0-4.40) 10/26/22 05:08 Folate 5.9 ng/mL (4.8-37.3) 10/26/22 05:08 Procalcitonin 8.89 ng/mL (0-0.5) H 10/25/22 15:45 Prolactin 20.56 ng/mL (4.8-23.3) 10/25/22 15:45 Urine Color Light yellow (Yellow) 10/26/22 04:20 Urine Appearance Clear (CLEAR) 10/26/22 04:20 Urine pH 5 (5-7) 10/26/22 04:20 Ur Specific Urania 1.010 (1.005-1.030) 10/26/22 04:20 Urine Protein Neg (Negative) 10/26/22 04:20 Urine Glucose (UA) Norm (Normal) 10/26/22 04:20 Urine Ketones Negative (Negative) 10/26/22 04:20 Urine Blood Neg (Negative) 10/26/22 04:20 Urine Nitrate Negative (Negative) 10/26/22 04:20 Urine Bilirubin Neg (Negative) 10/26/22 04:20 Prot Sulfosalicylic Acd Cancelled 10/25/22 04:20 Urine Urobilinogen Neg mg/dL (Negative) 10/26/22 04:20 Ur Leukocyte Esterase Trace (Negative) H 10/26/22 04:20 Urine RBC None /hpf (0-2) 10/26/22 04:20 Urine WBC 5-10 /hpf (0-5) H 10/26/22 04:20 Ur Squamous Epith Cells None /hpf (0-5) 10/26/22 04:20 Ur Transition Epith Cell Cancelled 10/25/22 04:20 Ur Renal Epithelial Cell Cancelled 10/25/22 04:20 Calcium Oxalate Crystal Cancelled 10/25/22 04:20 Uric Acid Crystals Cancelled 10/25/22 04:20 Triple Phos Crystals Cancelled 10/25/22 04:20 Other Crystals Cancelled 10/25/22 04:20 Amorphous Sediment Not Reportable 10/26/22 04:20 Urine Bacteria Trace /hpf (NONE) 10/26/22 04:20 Hyaline Casts Cancelled 10/25/22 04:20 Fine Granular Casts Cancelled 10/25/22 04:20 Coarse Granular Casts Cancelled 10/25/22 04:20 RBC Casts Cancelled 10/25/22 04:20 Other Casts Cancelled 10/25/22 04:20 Urine Mucus Cancelled 10/25/22 04:20 Urine Trichomonas Cancelled 10/25/22 04:20 Urine Yeast Cancelled 10/25/22 04:20 Urine Sperm Cancelled 10/25/22 04:20 Ur Oval Fat Bodies Cancelled 10/25/22 04:20 Ur Random Sodium 32 mmol/L 10/26/22 04:20 Ur Random Potassium 16 mmol/L 10/26/22 04:20 Ur Random Chloride 24 mmol/L 10/26/22 04:20 Urine Creatinine 67 mg/dL (28-217) 10/26/22 04:20 Carbamazepine 3.4 ug/mL (4.0-12.0) L 10/25/22 12:16 Lyme Ab (Western Blot) <0.90 index 10/25/22 15:45 E. chaffeensis IgG Ab <1:64 10/25/22 15:45 E. chaffeensis IgM Ab <1:20 10/25/22 15:45 E. chaffeensis Interp See note 10/25/22 15:45 E. chaffeensis Comment Not Reportable 10/25/22 15:45 Rickettsia IgG Ab Not detected 10/25/22 15:45 Rickettsia IgM Ab Not detected 10/25/22 15:45 SARS-CoV-2 Ag (Rapid) negative (Negative) 10/25/22 00:15 Vitals Last Vital Signs Temp 98.8 F 10/31/22 08:28 Pulse 66 10/31/22 11:28 Resp 20 H 10/31/22 11:28 BP 140/72 10/31/22 11:28 Pulse Ox 94 10/31/22 11:28 O2 Del Method Room Air 10/31/22 11:28 O2 Flow Rate 2 10/31/22 08:28 Discharge Plan Discharge Patient Disposition: Xfer SNF Condition: Stable Prescriptions: New acetaminophen 650 mg tablet extended release 650 mg PO Q6H PRN (Reason: pain) Qty: 20 0RF Continued cholecalciferol (vitamin D3) 50 mcg (2,000 unit) capsule 50 mcg PO DAILY atorvastatin [Lipitor] 80 mg tablet 80 mg PO DAILY Breztri Aerosphere 160-9-4.8 mcg/actuation HFA aerosol inhaler 2 inh inhalation BID 30 Days Qty: 10.7 6RF docusate sodium [Colace] 100 mg capsule 100 mg PO BID PRN (Reason: Constipation) ropinirole 2 mg tablet 2 mg PO BEDTIME carbamazepine 200 mg tablet 200 mg PO BID Qty: 60 3RF (DME) diabetic shoes with 3 pairs inserts See Rx Instructions .Route .MEDSUPPLY Qty: 1 0RF Rx Instructions: As directed HOME Ingrezza 80 mg capsule 80 mg PO DAILY Qty: 30 2RF hydroxychloroquine 200 mg tablet 200 mg PO BID Qty: 60 0RF albuterol sulfate [Ventolin HFA] 90 mcg/actuation HFA aerosol inhaler 2 puff inhalation QID PRN (Reason: Shortness Of Breath) fenofibrate 54 mg tablet 54 mg PO DAILY levothyroxine 100 mcg tablet 100 mcg PO DAILY metformin 1,000 mg tablet 1,000 mg PO BID nitroglycerin [Nitrostat] 0.4 mg Tablet, Sublingual 0.4 mg SUBLINGUAL Q5M PRN (Reason: Chest Pain) Rx Instructions: do not exceed 3 doses per episode oxybutynin chloride 10 mg tablet extended release 24hr 20 mg PO DAILY clopidogrel 75 mg tablet 75 mg PO DAILY gabapentin 800 mg tablet 800 mg PO TID duloxetine [Cymbalta] 60 mg capsule,delayed release(DR/EC) 60 mg PO DAILY sennosides-docusate sodium [Senna-S] 8.6-50 mg tablet 1 tab-cap PO DAILY Qty: 10 0RF amlodipine 10 mg tablet 10 mg PO DAILY Qty: 30 0RF losartan 100 mg tablet 100 mg PO DAILY Qty: 30 0RF hydralazine 50 mg tablet 50 mg PO BID Qty: 60 4RF Ure-Na 15 gram powder in packet 1 packet PO BIDWMEAL Qty: 30 0RF Discharge Orders: Discharge Order (Routine); Ordered 10/31/22 Ordered By: Blayne Billings Other Ambulatory Orders: DME: Wheelchair (Order) Location: None Selected Ordered By: Hugo Alvarado Referrals: [facility] [Outside] Brett Guallpa MD [Primary Care Provider] - 1 week Patient Instructions: Wheezing (ED), Opioid Safety, Weakness (Generalized) Activity Restrictions/Additional Instructions: Your lab work was stable or improved from your recent discharge. Please continue the medication as directed and follow-up with your primary care physician for further evaluation and treatment. Discharge Attestations Time Spent in Discharge Care*: less than 30 min Quality Metrics Clinical Quality Measures [ No reported AMI, CVA or VTE this stay] Coding Level of Care Code Acute Code for Chg Fwd Diagnoses Altered mental status R41.82 DAKSHA (acute kidney injury) N17.9 Rib fractures S22.49XA Hypoxia R09.02 Fall W19.XXXA Acute hyponatremia E87.1
[2022-10-31 12:55] LABS: SARS Covid-2 Antigen positive (Negative)
[2022-10-31 16:32] LABS: Adenovirus Not Detected (NOT DETECT); Chlamydia Pneumoniae Not Detected (NOT DETECT); Coronavirus 229E,HKU1,NL63,OC4 Not Detected (NOT DETECT); Human Metapneumovirus Not Detected (NOT DETECT); Human Rhinovirus/Enterovirus Not Detected (NOT DETECT); Influenza A Not Detected (NOT DETECT); Influenza A H1 Not Detected (NOT DETECT); Influenza A H1-2009 Not Detected (NOT DETECT); Influenza A H3 Not Detected (NOT DETECT); Influenza B Not Detected (NOT DETECT); Mycoplasma Pneumoniae Not Detected (NOT DETECT); Parainfluenza Virus Type 1 Not Detected (NOT DETECT); Parainfluenza Virus Type 2 Not Detected (NOT DETECT); Parainfluenza Virus Type 3 Not Detected (NOT DETECT); Parainfluenza Virus Type 4 Not Detected (NOT DETECT); Respiratory Syncytial Virus A Not Detected (NOT DETECT); Respiratory Syncytial Virus B Not Detected (NOT DETECT); SARS-COV-2 Not Detected (NOT DETECT)
--- NOTE | 2022-10-31 17:28 | PC.NURSE ---
Patient wanted to add her sister Jagruti Marks to her PHI. This nurse had the patient fill out a new PHI form. The PHI form is in the paper chart.
[2022-10-31] MEDS: hyDRALAzine 50 mg Tablet PO (17:55)
[2022-10-31] MEDS: trazodone 50 mg Tablet PO (20:46)
[2022-11-01 00:30] VITALS: BP 189/75; PULSE 114; RESP 15; TEMP 37.3; O2SAT 93
[2022-11-01] MEDS: metoprolol tartrate 25 mg Tablet PO (01:28)
[2022-11-01 04:00] VITALS: BP 146/72; PULSE 100; RESP 15; TEMP 37.6; O2SAT 92
[2022-11-01 05:53] LABS: Anion Gap 14.1 (5-19); Blood Urea Nitrogen 9 mg/dL (8-23); Calcium 8.4 mg/dL (8.5-10.5); Carbon Dioxide 20 mmol/L (22-29); Chloride 101 mmol/L (98-107); Creatinine Clr Calc Pharmacy 59.2707; Glucose 118 mg/dL (65-115); Osmolality Calculated 272 mOsm/kg (285-295); Potassium 4.1 mmol/L (3.5-5.1); Sodium 131 mmol/L (136-145)
[2022-11-01] MEDS: levothyroxine 100 mcg Tablet PO (06:32)
[2022-11-01 07:18] VITALS: BP 164/63; PULSE 88; RESP 19; TEMP 38.2; O2SAT 92
[2022-11-01] MEDS: losartan 50 mg Tablet 100 MG PO (09:07)
[2022-11-01] MEDS: hyDRALAzine 50 mg Tablet PO (09:07)
[2022-11-01] MEDS: amlodipine 10 mg Tablet PO (09:07)
--- NOTE | 2022-11-01 10:21 | PC.SOCIAL ---
IMM update IMM updated with patient. Verbalized an understanding. Copy pG 2 provided. Initialled, dated, timed, and placed in chart.
[2022-11-01 11:21] VITALS: BP 125/64; PULSE 86; RESP 18; TEMP 37.1; O2SAT 94
[2022-11-01 13:16] VITALS: BP 125/64; PULSE 86; RESP 18; TEMP 37.1; O2SAT 94
--- NOTE | 2022-11-01 13:23 | DCPLANNER ---
Additional Discharge Information Discharge Diet Usual diet Discharge Activity Limit activity Patient was discharged via transport in a wheelchair. Patient was discharged on 11/01/2022 at 13:20
== END 2022-11-01 13:20 | disposition skilled nursing facility (03) ==
LOC: ER 23:50 → MEDSURG 10-25 02:29
PROVIDERS: Emergency Medicine; Internal Medicine; Student in an Organized Health Care Education/Training Program; Admitting Provider Internal Medicine; Emergency Provider Emergency Medicine; PCP Family Medicine; Visit Provider Internal Medicine
DX: E87.1 Hypo-osmolality and hyponatremia (principal); E86.0 Dehydration; N17.9 Acute kidney failure, unspecified; R09.02 Hypoxemia; D72.819 Decreased white blood cell count, unspecified; S22.42XA Multiple fractures of ribs, left side, initial encounter for closed fracture; W19.XXXA Unspecified fall, initial encounter; Z79.84 Long term (current) use of oral hypoglycemic drugs; Z79.02 Long term (current) use of antithrombotics/antiplatelets; R00.0 Tachycardia, unspecified; I10 Essential (primary) hypertension; Z87.891 Personal history of nicotine dependence; E11.9 Type 2 diabetes mellitus without complications; G50.0 Trigeminal neuralgia; J44.9 Chronic obstructive pulmonary disease, unspecified
CPT/HCPCS: 36415; 36416; 36600; 51702; 70450; 71045; 80048; 80053; 80061; 80069; 80156; 81001; 82140; 82436; 82570; 82746; 82803; 82962; 83036; 83540; 83550; 83735; 83880; 84133; 84145; 84146; 84300; 85025; 86618; 86666; 86757; 87040; 87426; 87635; 93005; 94640; 96372; 97110; 97116; 97161; 97530; 99285; G0378; J0696; J1650; J1885; J3475; J3490; J7030; J7614; J7626; J7644

== ENCOUNTER → 2022-11-06 10:12 | Outpatient (BNVA) | payer MEDICARE, MEDICAID, SELFPAY | PROVIDERS: PCP Family Medicine; Visit Provider Specialist | DX: S42.252D Displaced fracture of greater tuberosity of left humerus, subsequent encounter for fracture with routine healing (principal); X58.XXXD Exposure to other specified factors, subsequent encounter | CPT/HCPCS: 73030; 99024 ==

== ENCOUNTER 2022-11-19 03:56 | Emergency (ER) | payer MEDICARE, SELFPAY ==
[2022-11-19 04:07] VITALS: BP 155/69; PULSE 83; RESP 18; TEMP 36.8; O2SAT 94; BMI 30.2
--- NOTE | 2022-11-19 04:10 | XRR_ITS ---
PROCEDURE INFORMATION: Exam: XR Thoracic Spine Exam date and time: 11/19/2022 4:15 AM Age: 77 years old Clinical indication: Injury or trauma; Blunt trauma (contusions or hematomas); Prior surgery; Surgery date: 6+ months; Surgery type: Lumbar. Bladder. Gb; Patient HX: Fall at home. C/O back pain. TECHNIQUE: Imaging protocol: Radiologic exam of the thoracic spine. Views: 3 views. COMPARISON: CR (CHEST, ) 10/24/2022 11:43 PM FINDINGS: Bones/joints: The thoracic spine maintains a normal kyphotic curvature. No spondylolisthesis identified. The vertebral bodies maintain normal height. The intervertebral discs maintain normal height. Mild endplate degenerative changes. Soft tissues: Unremarkable. XR/XR thoracic spine 3V* [id number] IMPRESSION: No radiographically evident vertebral body height loss or traumatic malalignment identified.
--- NOTE | 2022-11-19 04:10 | XRR_ITS ---
PROCEDURE INFORMATION: Exam: XR Lumbosacral Spine Exam date and time: 11/19/2022 4:20 AM Age: 77 years old Clinical indication: Injury or trauma; Blunt trauma (contusions or hematomas); Prior surgery; Surgery date: 6+ months; Surgery type: Gb. Lumbar. Bladder; Patient HX: Fall at home. C/O back pain. TECHNIQUE: Imaging protocol: Radiologic exam of the lumbosacral spine. Views: 2 or 3 views. COMPARISON: 1. CT chest wo con [id number] 08/29/2022 3:[address] angio chest PE protcl [id number] 09/07/2022 8:36 AM 3. CR XR pelvis 1-2V* [id number] 09/24/2022 1:00 AM FINDINGS: Bones/joints: Posterior spinous process hardware noted. The lumbar spine maintains a normal lordotic curvature. No spondylolisthesis identified. Mild compression deformity at L1. The intervertebral discs maintain normal height. No significant degenerative changes identified. Soft tissues: Unremarkable. XR/XR lumbar spine 2-3V* [id number] IMPRESSION: Mild age indeterminate compression deformity at L1, not present on prior CT of the chest dated 08/29/2022. Correlate with any focal pain in this region.
--- NOTE | 2022-11-19 04:11 | W.ED.FALL ---
HPI - Fall General: Chief Complaint: Back Pain/Injury Stated Complaint: all over body pain/fall 2days ago Time Seen by Provider: 11/19/22 04:02 Source: patient Mode of arrival: ambulatory Limitations: no limitations History of Present Illness: 77-year-old female states she had a fall 2 days ago. Is a ground-level fall and she fell right onto her buttocks. States it felt like it darion her spine she had much pain at that time but she had increasing pain up and down her spine the last 2 days. She is able ambulate states pain got worse tonight. She rates her pain a 6 out of 10 currently denies hitting her head or headache Associated symptoms-after fall: Denies abdominal pain, chest pain, headache(s) or neck pain Review of Systems Const: Denies: fever(s) or chills Eyes: Denies: blurry vision ENMT: Denies: throat pain or dental pain Card: Denies: chest pain Resp: Denies: dyspnea GI: Denies: abdominal pain, nausea, vomiting or diarrhea Musc: Reports: back pain; Denies: neck pain Skin/Breast: Denies: rash Neuro: Denies: headache(s) PFSH ED PFSH: Medical History Acute hyperkalemia Acute hyponatremia Acute hyponatremia Acute renal insufficiency DAKSHA (acute kidney injury) Alcohol use disorder in remission Altered mental status Amphetamine use disorder, moderate, in sustained remission ZAY positive Bipolar disorder, in partial remission, most recent episode manic Cannabis use disorder, mild, in sustained remission, abuse Cervicalgia Chronic kidney disease (CKD) Chronic obstructive pulmonary disease Closed left humeral fracture Contusion of elbow, right Coronary artery disease Patient with stents Diabetes mellitus Diarrhea Dyspnea on exertion Fall Goals of care, counseling/discussion Hyperlipidemia Hypertension Hypomagnesemia Hyponatremia Hypothyroidism Hypoxia Incidental pulmonary nodule, > 3mm and < 8mm Left rib fracture Lupus Major depressive disorder, recurrent, in partial remission Mass of right lung Follow-up of previous CAT scan Nicotine dependence, cigarettes, in remission Orofacial dyskinesia Parkinsonian tremor Psychiatric care Rheumatoid arthritis Rib fractures SS-A antibody positive Tardive dyskinesia Tobacco use disorder, mild, in sustained remission Trigeminal neuralgia Urinary Incontinence UTI (urinary tract infection) Weakness Weakness Wheezing Surgical History History of back surgery (01/17/13) History of bilateral breast reduction surgery History of bilateral tubal ligation History of bladder surgery (~1989) Vaginal Urethral sling with possible anchors . Performed by Dr. Salas at [facility] [place]. History of cholecystectomy History of colonoscopy with polypectomy (~04/20/20) 2017 History of coronary angioplasty with insertion of stent 2006: 2 stents. 2008: 2 stents. History of dilation and curettage (~1982) History of hand surgery Repair right thumb fracture History of hemorrhoidectomy History of right cataract extraction History of vaginal hysterectomy Still has ovaries. Performed in [place], [place]. Performed due to bleeding. Family History Brother Heart disease Hypertension Hypercholesteremia Diabetes Sister Thyroid condition Social History Smoking and tobacco status: former smoker Smoking risk assessment/counseling performed?: No Counseling given: No Substance/Drug Use: never Counseling given: No Lives independently: Yes Household members: none Marital status: Current occupational status: disabled Do you think of yourself as: Straight/Heterosexual Current gender identity: Female Physical Exam Const: COMMON NORMALS: no acute distress, patient oriented x3 and healthy appearing HENMT: COMMON NORMALS: normocephalic and atraumatic HEAD & SCALP: normocephalic and atraumatic Neck/C-Spine: COMMON NORMALS: full ROM and supple Chest: COMMONS NORMALS: normal inspection of the chest and normal palpation of entire chest wall Resp: COMMON NORMALS: normal respiratory effort, No retractions, No use of accessory muscles and clear to auscultation bilaterally AUSCULTATION: clear to auscultation bilaterally Cardio: COMMON NORMALS: regular rate, regular rhythm and No murmurs present (Cardio) RATE: regular rate RHYTHM: regular rhythm GI: COMMON NORMALS: Normal to inspection, nondistended, normoactive bowel sounds present, Soft to palpation, non-tender and no masses PALPATION: Yes Soft to palpation Back/Pelvis: OTHER: Paraspinal tenderness noted no midline tenderness. Extremity: COMMON NORMALS: normal to inspection and full ROM Neuro: COMMON NORMALS: patient oriented x3, moves all extremities and no focal motor deficits Psych: COMMON NORMALS: mental status grossly normal, Normal thought process present and cooperative THOUGHT PROCESS: Normal thought process present Skin: COMMON NORMALS: no rashes or lesions noted and no wounds GENERAL SKIN EXAM: no rashes or lesions noted Course Vital Signs: Vital signs: Vital Signs Temperature 98.2 F 11/19/22 04:07 Pulse Rate 77 11/19/22 04:53 Respiratory Rate 18 11/19/22 04:53 Blood Pressure 155/69 11/19/22 04:53 Pulse Oximetry 92 11/19/22 04:53 Oxygen Delivery Me thod Room Air 11/19/22 04:07 MDM - Fall Medical Decision Making Patient presents here with a compression fracture to her lumbar spine at L1 she is well-appearing here we will prescribe her hydrocodone for pain she is to follow-up with PCP and return if worsening Medical Records I reviewed the patient's medical records. Lab Data I reviewed the patient's lab results. Radiology Impressions Lumbar Spine X-Ray 11/19/22 04:10 IMPRESSION: Mild age indeterminate compression deformity at L1, not present on prior CT of the chest dated 08/29/2022. Correlate with any focal pain in this region. Thoracic Spine X-Ray 11/19/22 04:10 IMPRESSION: No radiographically evident vertebral body height loss or traumatic malalignment identified. Discharge Plan Discharge Patient Disposition: Home Clinical Impression: Compression fracture of lumbar vertebra Condition: Stable Prescriptions: New hydrocodone-acetaminophen 5-325 mg tablet 1 tab PO Q6H PRN (Reason: pain) Qty: 14 0RF No Action cholecalciferol (vitamin D3) 50 mcg (2,000 unit) capsule 50 mcg PO DAILY atorvastatin [Lipitor] 80 mg tablet 80 mg PO DAILY Breztri Aerosphere 160-9-4.8 mcg/actuation HFA aerosol inhaler 2 inh inhalation BID 30 Days Qty: 10.7 6RF docusate sodium [Colace] 100 mg capsule 100 mg PO BID PRN (Reason: Constipation) ropinirole 2 mg tablet 2 mg PO BEDTIME carbamazepine 200 mg tablet 200 mg PO BID Qty: 60 3RF (DME) diabetic shoes with 3 pairs inserts See Rx Instructions .Route .MEDSUPPLY Qty: 1 0RF Rx Instructions: As directed HOME Ingrezza 80 mg capsule 80 mg PO DAILY Qty: 30 2RF hydroxychloroquine 200 mg tablet 200 mg PO BID Qty: 60 0RF albuterol sulfate [Ventolin HFA] 90 mcg/actuation HFA aerosol inhaler 2 puff inhalation QID PRN (Reason: Shortness Of Breath) fenofibrate 54 mg tablet 54 mg PO DAILY acetaminophen 650 mg tablet extended release 650 mg PO Q6H PRN (Reason: pain) Qty: 20 0RF levothyroxine 100 mcg tablet 100 mcg PO DAILY metformin 1,000 mg tablet 1,000 mg PO BID nitroglycerin [Nitrostat] 0.4 mg Tablet, Sublingual 0.4 mg SUBLINGUAL Q5M PRN (Reason: Chest Pain) Rx Instructions: do not exceed 3 doses per episode oxybutynin chloride 10 mg tablet extended release 24hr 20 mg PO DAILY clopidogrel 75 mg tablet 75 mg PO DAILY gabapentin 800 mg tablet 800 mg PO TID duloxetine [Cymbalta] 60 mg capsule,delayed release(DR/EC) 60 mg PO DAILY sennosides-docusate sodium [Senna-S] 8.6-50 mg tablet 1 tab-cap PO DAILY Qty: 10 0RF amlodipine 10 mg tablet 10 mg PO DAILY Qty: 30 0RF losartan 100 mg tablet 100 mg PO DAILY Qty: 30 0RF hydralazine 50 mg tablet 50 mg PO BID Qty: 60 4RF Ure-Na 15 gram powder in packet 1 packet PO BIDWMEAL Qty: 30 0RF Discharge Orders: Discharge ED (Routine); Ordered 11/19/22 Ordered By: Amelie Chavez Referrals: Brett Guallpa MD [Primary Care Provider] - Discharge Diet: Advance as tolerated Discharge Activity: Resume usual activity Patient Instructions: Vertebral Compression Fracture (ED), Opioid Safety Coding Level of Care Code ED Chief Controller Tower for Aicha Jean Baptiste
[2022-11-19] MEDS: HYDROcodone-acetaminophen 5-325 mg Tablet 1 TAB PO (04:23)
[2022-11-19 04:53] VITALS: BP 155/69; PULSE 77; RESP 18; O2SAT 92
--- NOTE | 2022-11-20 08:47 | DCPLANNER ---
Addendum entered by Berenice Aguilar 12/15/22 10:23: Patient did attend this appointment with ortho Addendum entered by Berenice Aguilar 11/22/22 09:01: Patient has a follow up appointment scheduled for November at 1:30 with Ric Eason at ortho. Original Note: atm manager had message to schedule a follow up appointment for patient with ortho. atm manager sent patients information to the front office staff at ortho. Patients information will be printed and reviewed. Clinic will call patient with appointment information.
== END 2022-11-19 05:02 | disposition home or self-care (01) ==
PROVIDERS: Emergency Provider Emergency Medicine; PCP Family Medicine
DX: S32.018A Other fracture of first lumbar vertebra, initial encounter for closed fracture (principal); I12.9 Hypertensive chronic kidney disease with stage 1 through stage 4 chronic kidney disease, or unspecified chronic kidney disease; E11.22 Type 2 diabetes mellitus with diabetic chronic kidney disease; N18.9 Chronic kidney disease, unspecified; J44.9 Chronic obstructive pulmonary disease, unspecified; I25.10 Atherosclerotic heart disease of native coronary artery without angina pectoris; E03.9 Hypothyroidism, unspecified; G20 Parkinson's disease; Z87.891 Personal history of nicotine dependence; W18.30XA Fall on same level, unspecified, initial encounter
CPT/HCPCS: 72072; 72100; 99283

== ENCOUNTER 2022-11-30 14:23 | Outpatient (CLI) | payer MEDICARE, SELFPAY | END 2022-11-30 14:24 | disposition home or self-care (01) | LOC: SPT 14:25 | PROVIDERS: PCP Family Medicine; Visit Provider Physician Assistant | DX: Z46.89 Encounter for fitting and adjustment of other specified devices (principal); S32.010D Wedge compression fracture of first lumbar vertebra, subsequent encounter for fracture with routine healing; X58.XXXD Exposure to other specified factors, subsequent encounter; S32.010A Wedge compression fracture of first lumbar vertebra, initial encounter for closed fracture; W19.XXXA Unspecified fall, initial encounter | CPT/HCPCS: 97760; 99203; L0456 ==

== ENCOUNTER → 2022-12-21 12:34 | Outpatient (BNVA) | payer MEDICARE, SELFPAY | PROVIDERS: PCP Family Medicine; Visit Provider Thoracic Surgery (Cardiothoracic Vascular Surgery) | DX: R91.1 Solitary pulmonary nodule (principal) | CPT/HCPCS: 99213 ==

== ENCOUNTER 2023-01-04 14:10 | Outpatient (CLI) | payer MEDICARE, SELFPAY ==
--- NOTE | 2023-01-04 14:30 | MR_ITS ---
WS: [id number] MRI LUMBAR SPINE NONCONTRAST HISTORY: compression fracture COMPARISON: 05/31/2010 and prior MRI lumbar spine radiographs 11/19/2022 TECHNIQUE: Sagittal and axial multisequence imaging is submitted. Mild increase in the lumbar lordosis. Very mild anterior wedging of T3 and T4. Mild anterior wedging of L1 with marrow edema. 20% anterior compression fractures with 2 mm retropuls ion of the posterior inferior endplate. Mild retrolisthesis of L2 and L3 by 2 mm. 2 mm anterolisthesis of L4. Conus terminates normally at L1-2 disc level. L1-L2: Mild disc bulging and facet arthritis. Mild to moderate bilateral foraminal stenosis. L2-L3: Mild osteophytic ridging and annular disc bulging and facet arthritis. Mild bilateral foramina l stenosis. L3-L4: Diffuse annular disc bulging, osteophytic ridging with ligamentum flavum and facet arthritis. Moderate central with bilateral subarticular recess and foraminal stenosis, LEFT greater than RIGHT. L4-L5: Marked annular disc bulging with osteophytic ridging and facet and ligamentum flavum hypertrop hy. Severe central, bilateral subarticular recess and moderate foraminal stenosis. L5-S1: Mild annular disc bulging with severe facet joint arthritis. Severe central and bilateral suba rticular recess and moderate foraminal stenosis. Stenoses have significantly progressed throughout the lumbar spine since 2010. IMPRESSION: 1. L1 acute 20% compression fracture with very slight retropulsion of the posterior inferior endplate . 2. Significant progression of stenoses and facet disease throughout the lumbar spine since 2010. 3. L3-4: Moderate central, bilateral subarticular recess and foraminal stenosis, LEFT greater than RI GHT. 4. L4-5: Severe central, bilateral subarticular recess and moderate foraminal stenosis. 5. L5-S1: Severe central and bilateral subarticular recess and moderate foraminal stenosis. 6. L1-2: Mild to moderate bilateral foraminal stenosis. 7. Posterior fusion hardware at L5-S1.
== END 2023-01-04 14:11 | disposition home or self-care (01) ==
PROVIDERS: PCP Family Medicine; Visit Provider Physician Assistant
DX: S32.010A Wedge compression fracture of first lumbar vertebra, initial encounter for closed fracture (principal); X58.XXXA Exposure to other specified factors, initial encounter; M48.07 Spinal stenosis, lumbosacral region; Z98.1 Arthrodesis status; M47.817 Spondylosis without myelopathy or radiculopathy, lumbosacral region
CPT/HCPCS: 72148

== ENCOUNTER → 2023-02-08 10:02 | Outpatient (BNVA) | payer MEDICARE, SELFPAY | PROVIDERS: PCP Family Medicine; Visit Provider Nurse Practitioner | DX: R29.898 Other symptoms and signs involving the musculoskeletal system; S42.252D Displaced fracture of greater tuberosity of left humerus, subsequent encounter for fracture with routine healing; X58.XXXD Exposure to other specified factors, subsequent encounter | CPT/HCPCS: 73030; 99213 ==

== ENCOUNTER 2023-02-27 08:23 | Outpatient (RCR) | payer MEDICARE, SELFPAY | END 2023-03-15 23:59 | disposition home or self-care (01) | LOC: SPT 08:23 | PROVIDERS: PCP Family Medicine; Visit Provider Nurse Practitioner | DX: M25.512 Pain in left shoulder (principal); S42.265D Nondisplaced fracture of lesser tuberosity of left humerus, subsequent encounter for fracture with routine healing; X58.XXXD Exposure to other specified factors, subsequent encounter | CPT/HCPCS: 97161 ==

== ENCOUNTER 2023-03-16 15:37 | Inpatient (IN) | payer MEDICARE, SELFPAY ==
[2023-03-16] VITALS (8 sets, daily range): BP systolic 119–152; BP diastolic 62–81; PULSE 74–94; RESP 16–17; TEMP 36.7–36.8; O2SAT 92–97; BMI 23.6; BMI 24.0
[2023-03-16 17:09] LABS: Basophils % 0.7 %; Eosinophils % 1.1 %; Hematocrit 33.6 % (36-47); Lymphocytes # 1.2 10^3/uL (0.8-4.8); Lymphocytes % 44.4 %; Mean Corpuscular HGB Conc 33.3 g/dL (30-55); Mean Corpuscular Hemoglobin 27.7 pg (27-33); Mean Corpuscular Volume 83.2 fl (85-98); Mean Platelet Volume 8.8 fL (7.4-10.4); Monocytes # 0.4 10^3/uL (0.2-0.9); Monocytes % 13.4 %; Neutrophils # 1.08 10^3/uL (1.8-7.7); Neutrophils % 40.4 %; Nucleated Red Blood Cells % 0 %; Platelet Count 269 10^3/cmm (157-399); Red Blood Count 4.04 10^6/uL (3.85-5.65); Red Cell Distribution Width 13.2 % (12.1-15.1); White Blood Count 2.68 10^3/uL (3.29-11.43)
[2023-03-16 17:28] LABS: Alanine Aminotransferase 10 U/L (0-33); Albumin Level 4.2 g/dL (3.5-5.2); Alkaline Phosphatase 76 U/L (35-105); Anion Gap 16.7 (5-19); Aspartate Amino Transferase 16 U/L (0-32); Blood Urea Nitrogen 10 mg/dL (8-23); Calcium 9.3 mg/dL (8.5-10.5); Carbon Dioxide 22 mmol/L (22-29); Chloride 87 mmol/L (98-107); Globulin 2.9 g/dL (1.3-4.6); Glucose 99 mg/dL (65-115); Lipase 61 U/L (13-60); Osmolality Calculated 251 mOsm/kg (285-295); Potassium 4.7 mmol/L (3.5-5.1); Sodium 121 mmol/L (136-145); Total Bilirubin 0.2 mg/dL (0.15-1.2); Total Protein 7.1 g/dL (6.6-8.7)
--- NOTE | 2023-03-16 18:10 | ED_ITS ---
HPI - Nausea/Vomiting/Diarrhea 2 General: Chief complaint: Nausea/Vomiting/Diarrhea Stated complaint: NV,high bs, sent Time Seen by Provider: 03/16/23 17:37 History of Present Illness: presents to the ER with complaints of nausea vomiting for the last 2 to 3 months. And overall weakness. Patient says her family doctor told her to come here for blood work and probably fluids. Patient states this has been going on for actually 3 to 4 months. She is also had problems with her sodium. she just got of the snf for rehab approximately 2 months ago and has progressed downhill ever since. Patient has no localizing symptoms but she is just weak all over. Review of Systems 2 General: Reports: 10 or more systems reviewed and unremarkable except in HPI and below PFSH ED 2 PFSH: Medical History Acute pain of left shoulder Altered mental status Rib fractures DAKSHA (acute kidney injury) Hypoxia Wheezing Weakness UTI (urinary tract infection) Diarrhea Hypomagnesemia Goals of care, counseling/discussion Hyponatremia Weakness Acute hyponatremia Fall Contusion of elbow, right Left rib fracture Closed left humeral fracture Acute renal insufficiency Acute hyponatremia Acute hyperkalemia Major depressive disorder, recurrent, in partial remission Alcohol use disorder in remission Cannabis use disorder, mild, in sustained remission, abuse Amphetamine use disorder, moderate, in sustained remission Tobacco use disorder, mild, in sustained remission Cervicalgia Trigeminal neuralgia Psychiatric care Rheumatoid arthritis SS-A antibody positive ZAY positive Dyspnea on exertion Parkinsonian tremor Chronic kidney disease (CKD) Incidental pulmonary nodule, > 3mm and < 8mm Lupus Chronic obstructive pulmonary disease Coronary artery disease Patient with stents Diabetes mellitus Hyperlipidemia Hypertension Urinary Incontinence Hypothyroidism Mass of right lung Follow-up of previous CAT scan Orofacial dyskinesia Tardive dyskinesia Nicotine dependence, cigarettes, in remission Bipolar disorder, in partial remission, most recent episode manic Surgical History History of colonoscopy with polypectomy (~04/20/20) 2017 History of coronary angioplasty with insertion of stent 2006: 2 stents. 2008: 2 stents. History of hand surgery Repair right thumb fracture History of back surgery (01/17/13) History of bilateral breast reduction surgery History of right cataract extraction History of bilateral tubal ligation History of dilation and curettage (~1982) History of bladder surgery (~1989) Vaginal Urethral sling with possible anchors . Performed by Dr. Salas at [facility] [place] [place]. History of hemorrhoidectomy History of cholecystectomy History of vaginal hysterectomy Still has ovaries. Performed in [place], [place]. Performed due to bleeding. Family History Brother Heart disease Hypertension Hypercholesteremia Diabetes Sister Thyroid disease Social History Smoking and tobacco/nicotine status: former use of tobacco/nicotine Substance/Drug Use: never Lives independently: Yes Household members: none Marital status: Current occupational status: disabled Do you think of yourself as: Straight/Heterosexual Current gender identity: Female Physical Exam 2 Const: COMMON NORMALS: no acute distress, average body habitus, patient oriented x3, no limitations, healthy appearing, alert and well nourished HENMT: COMMON NORMALS: normocephalic, atraumatic, hearing grossly normal bilaterally, external ears normal, Normal external nose present, moist oral mucous membranes and oropharynx normal HEAD & SCALP: normocephalic and atraumatic NOSE: Normal external nose present EXTERNAL EAR: Yes external ears normal Neck/C-Spine: COMMON NORMALS: full ROM, no lymphadenopathy, supple, no meningeal signs, no JVD and Thyroid normal THYROID: Thyroid normal Chest: COMMONS NORMALS: normal inspection of the chest and normal palpation of entire chest wall Resp: COMMON NORMALS: normal respiratory effort, No retractions, No use of accessory muscles and clear to auscultation bilaterally AUSCULTATION: clear to auscultation bilaterally Cardio: COMMON NORMALS: no JVD, regular rate, regular rhythm, S1 normal heart sound present, S2 normal heart sound present, No gallops present (Cardio), No clicks present (Cardio), No murmurs present (Cardio) and No rub (Cardio) R ATE: regular rate RHYTHM: regular rhythm HEART SOUNDS: S1 normal heart sound present and S2 normal heart sound present GI: COMMON NORMALS: Normal to inspection, nondistended, normoactive bowel sounds present, Soft to palpation, non-tender, No hepatosplenomegaly present and no masses PALPATION: Yes Soft to palpation and Yes No hepatosplenomegaly present Neuro: COMMON NORMALS: patient oriented x3 SENSORIUM/ORIENTATION: Yes alert MENINGEAL SIGNS: Yes no meningeal signs Course 2 Vital Signs: Vital signs: Vital Signs Temperature 98.3 F 03/16/23 15:57 Pulse Rate 94 03/16/23 15:57 Respiratory Rate 17 03/16/23 15:57 Blood Pressure 134/73 03/16/23 20:30 Pulse Oximetry 94 03/16/23 20:30 Oxygen Delivery Me thod Room Air 03/16/23 15:57 MDM - Nausea/Vomiting/Diarrhea Medical Decision Making patient presents with nausea vomiting and generalized weakness. Patient has history of hyponatremia. Patient's lab work was obtained which showed she is severely hyponatremic at this time with a sodium of 121. White blood cell count of 2.6 hemoglobin hematocrit of 11.2/33.6. urinalysis was negative. Patient was given 1 L normal saline bolus And 4 mg Zofran. Patient's nausea improved. Always waiting on the lab work to come back patient with started on another second liter bolus of normal saline. Dr. Leon was consulted for further evaluation and treatment and he agreed that she would benefit from inpatient treatment due to her low sodium and generalized weakness to the point that she cannot go home safely. Differential Diagnosis Likely gastroenteritis and dehydration; Unlikely traveler's diarrhea, food poisoning, clostridium difficile infection or drug-induced nausea and vomiting Medical Records I reviewed the patient's medical records. Lab Data I reviewed the patient's lab results. 03/16/23 16:45 03/16/23 16:45 Laboratory Results WBC 2.68 10^3/uL (3.29-11.43) L 03/16/23 16:45 RBC 4.04 10^6/uL (3.85-5.65) 03/16/23 16:45 Hgb 11.20 g/dL (11.27-16.99) L 03/16/23 16:45 Hct 33.6 % (36-47) L 03/16/23 16:45 MCV 83.2 fl (85-98) L 03/16/23 16:45 MCH 27.7 pg (27-33) 03/16/23 16:45 MCHC 33.3 g/dL (30-55) 03/16/23 16:45 RDW 13.2 % (12.1-15.1) 03/16/23 16:45 Plt Count 269 10^3/cmm (157-399) 03/16/23 16:45 MPV 8.8 fL (7.4-10.4) 03/16/23 16:45 Neut % (Auto) 40.4 % 03/16/23 16:45 Lymph % (Auto) 44.4 % 03/16/23 16:45 [place] % (Auto) 13.4 % 03/16/23 16:45 Eos % (Auto) 1.1 % 03/16/23 16:45 Baso % (Auto) 0.7 % 03/16/23 16:45 Neut # (Auto) 1.08 10^3/uL (1.8-7.7) L 03/16/23 16:45 Lymph # (Auto) 1.2 10^3/uL (0.8-4.8) 03/16/23 16:45 [place] # (Auto) 0.4 10^3/uL (0.2-0.9) 03/16/23 16:45 Eos # (Auto) 0.0 10^3/uL (0.0-0.8) 03/16/23 16:45 Baso # (Auto) 0.0 10^3/uL (0.0-0.1) 03/16/23 16:45 Nucleated RBC % (auto) 0 % 03/16/23 16:45 Nucleated RBCs # 0.0 /100WBC 03/16/23 16:45 Sodium 121 mmol/L (136-145) L 03/16/23 16:45 Potassium 4.7 mmol/L (3.5-5.1) 03/16/23 16:45 Chloride 87 mmol/L (98-107) L 03/16/23 16:45 Carbon Dioxide 22 mmol/L (22-29) 03/16/23 16:45 Anion Gap 16.7 (5-19) 03/16/23 16:45 BUN 10 mg/dL (8-23) 03/16/23 16:45 Creatinine 0.9 mg/dL (0.5-0.9) 03/16/23 16:45 GFR Calculation Not Reportable 03/16/23 16:45 Glucose 99 mg/dL (65-115) 03/16/23 16:45 Calculated Osmolality 251 mOsm/kg (285-295) L 03/16/23 16:45 Calcium 9.3 mg/dL (8.5-10.5) 03/16/23 16:45 Magnesium 1.6 mg/dL (1.7-2.3) L 03/16/23 16:45 Total Bilirubin 0.2 mg/dL (0.15-1.2) 03/16/23 16:45 AST 16 U/L (0-32) 03/16/23 16:45 ALT 10 U/L (0-33) 03/16/23 16:45 Alkaline Phosphatase 76 U/L (35-105) 03/16/23 16:45 Total Protein 7.1 g/dL (6.6-8.7) 03/16/23 16:45 Albumin 4.2 g/dL (3.5-5.2) 03/16/23 16:45 Globulin 2.9 g/dL (1.3-4.6) 03/16/23 16:45 Lipase 61 U/L (13-60) H 03/16/23 16:45 Urine Color Yellow (Yellow) 03/16/23 18:15 Urine Appearance Clear (CLEAR) 03/16/23 18:15 Urine pH 7 (5-7) 03/16/23 18:15 Ur Specific [place] 1.010 (1.005-1.030) 03/16/23 18:15 Urine Protein Neg (Negative) 03/16/23 18:15 Urine Glucose (UA) Norm (Normal) 03/16/23 18:15 Urine Ketones Negative (Negative) 03/16/23 18:15 Urine Blood Neg (Negative) 03/16/23 18:15 Urine Nitrate Negative (Negative) 03/16/23 18:15 Urine Bilirubin Neg (Negative) 03/16/23 18:15 Urine Urobilinogen Neg mg/dL (Negative) 03/16/23 18:15 Ur Leukocyte Esterase Negative (Negative) 03/16/23 18:15 All radiology interpretation(s) finalized by discharge Discharge Plan Discharge Patient Disposition: Admitted As Inpatient Admit Provider: Jose F Leon Clinical Impression: Weakness generalized, Nausea & vomiting, Hyponatremia Condition: Stable Coding Level of Care Code ED Lab Analyst for Aicha Jean Baptiste
[2023-03-16] MEDS: ondansetron 2 mg/ML SDV 2 mL 4 MG IVP (18:14)
[2023-03-16] MEDS: sodium chloride 0.9% 1,000 ML 999 ML IV ×2 (18:14→20:05)
[2023-03-16 18:24] LABS: Add Urine Microscopic? NO; Charge for UA Resulting for Rev
[2023-03-16 18:37] LABS: Magnesium 1.6 mg/dL (1.7-2.3)
[2023-03-16 18:39] LABS: Bilirubin Urine Neg (Negative); Blood Urine Neg (Negative); Glucose Urine UA Norm (Normal); Ketones Urine Negative (Negative); Leukocyte Esterase Urine Negative (Negative); Nitrate Urine Negative (Negative); Protein Urine Neg (Negative); Urine Appearance Clear (CLEAR); Urine Color Yellow (Yellow); Urobilinogen Urine Neg (Negative); pH Urine 7 (5-7)
--- NOTE | 2023-03-16 20:17 | P.HP_ITS ---
Providers/Chief Complaint 2 Primary Care Provider: Brett Guallpa MD Chief Complaint: NV,high bs, sent History of Present Illness Elyssa Daniels is a 77 year old female with history of chronic hyponatremia concern for SIADH does not follow any fluid restricted diet, still smoking on daily basis, presented with generalized weakness and fatigue with recurrent falls. Patient is stating that for last 1 months she has been experiencing vomiting every time she is taking her medications, she has chronic tremors, with poor appetite, She has not noticed any chest pain, syncope, stroke related symptoms. Review of Systems 2 Const: Reports: chills, body aches, change in weight and fatigue Eyes: Denies: change in vision ENMT: Denies: throat pain Card: Denies: chest pain Resp: Denies: dyspnea GI: Reports: abdominal pain, nausea and vomiting : Denies: flank pain Musc: Denies: neck pain Medications/Allergies Home Medications Medication Instructions Recorded Confirmed Last Taken Type atorvastatin 80 mg tablet (Lipitor) 80 mg PO DAILY 06/03/19 02/08/23 09/03/20 History cholecalciferol (vitamin D3) 50 50 mcg PO DAILY 03/26/20 02/08/23 09/03/20 History mcg (2,000 unit) capsule albuterol sulfate 90 mcg/actuation 2 puff inhalation QID PRN 09/03/20 02/08/23 Unknown History aerosol inhaler (Ventolin HFA) Shortness Of Breath fenofibrate 54 mg tablet 54 mg PO DAILY 09/03/20 02/08/23 09/03/20 History budesonide 160 mcg-glycopyr 9 2 inh inhalation BID 30 days #10.7 11/22/20 02/08/23 Unknown Rx mcg-formot 4.8 mcg/actuation HFA grams inhaler (Breztri Aerosphere) docusate sodium 100 mg capsule 100 mg PO BID PRN Constipation 03/14/21 02/08/23 Unknown History (Colace) ropinirole 2 mg tablet 2 mg PO BEDTIME 03/14/21 02/08/23 Unknown History hydroxychloroquine 200 mg tablet 200 mg PO BID #60 tabs 08/01/21 02/08/23 Unknown Rx carbamazepine 200 mg tablet 200 mg PO BID #60 tabs 08/31/21 02/08/23 Unknown Rx diabetic shoes with 3 pairs inserts #1 ea 05/22/22 02/08/23 Unknown Rx clopidogrel 75 mg tablet 75 mg PO DAILY 09/06/22 02/08/23 Unknown History gabapentin 800 mg tablet 800 mg PO TID 09/06/22 02/08/23 Unknown History levothyroxine 100 mcg tablet 100 mcg PO DAILY 09/06/22 02/08/23 Unknown History metformin 1,000 mg tablet 1,000 mg PO BID 09/06/22 02/08/23 Unknown History nitroglycerin 0.4 mg sublingual 0.4 mg sublingual Q5M PRN Chest 09/06/22 02/08/23 Unknown History tablet (Nitrostat) Pain oxybutynin chloride 10 mg 20 mg PO DAILY Overactive bladder, 09/06/22 02/08/23 Unknown History tablet,extended release 24 hr incontinence amlodipine 10 mg tablet 10 mg PO DAILY #30 tabs 09/07/22 02/08/23 Unknown Rx losartan 100 mg tablet 100 mg PO DAILY #30 tabs 09/07/22 02/08/23 09/03/20 Rx sennosides 8.6 mg-docusate sodium 1 tab-cap PO DAILY #10 tabs 09/07/22 02/08/23 Unknown Rx 50 mg tablet (Senna-S) hydralazine 50 mg tablet 50 mg PO BID #60 tabs 09/28/22 02/08/23 Unknown Rx acetaminophen 650 mg 650 mg PO Q6H PRN pain #20 tabs 10/31/22 02/08/23 Unknown Rx tablet,extended release TLSO brace #1 ea 11/30/22 02/08/23 Unknown Rx duloxetine 60 mg capsule,delayed 60 mg PO DAILY #30 caps 01/10/23 02/08/23 Unknown Rx release (Cymbalta) valbenazine 80 mg capsule 80 mg PO DAILY #30 caps 01/10/23 02/08/23 Unknown Rx (Ingrezza) meloxicam 15 mg tablet 15 mg PO DAILY #60 tabs 02/08/23 02/08/23 Unknown Rx Allergies Allergy/AdvReac Type Severity Reaction Status Date / Time cephalexin [From Keflex] Allergy Mild ADR-Itching Verified 02/08/23 09:51 Requip Allergy Unknown ALGY-Rash Uncoded 02/08/23 09:51 PFSH Acute 2 PFSH: Medical History Acute pain of left shoulder Altered mental status Rib fractures DAKSHA (acute kidney injury) Hypoxia Wheezing Weakness UTI (urinary tract infection) Diarrhea Hypomagnesemia Goals of care, counseling/discussion Hyponatremia Weakness Acute hyponatremia Fall Contusion of elbow, right Left rib fracture Closed left humeral fracture Acute renal insufficiency Acute hyponatremia Acute hyperkalemia Major depressive disorder, recurrent, in partial remission Alcohol use disorder in remission Cannabis use disorder, mild, in sustained remission, abuse Amphetamine use disorder, moderate, in sustained remission Tobacco use disorder, mild, in sustained remission Cervicalgia Trigeminal neuralgia Psychiatric care Rheumatoid arthritis SS-A antibody positive ZAY positive Dyspnea on exertion Parkinsonian tremor Chronic kidney disease (CKD) Incidental pulmonary nodule, > 3mm and < 8mm Lupus Chronic obstructive pulmonary disease Coronary artery disease Patient with stents Diabetes mellitus Hyperlipidemia Hypertension Urinary Incontinence Hypothyroidism Mass of right lung Follow-up of previous CAT scan Orofacial dyskinesia Tardive dyskinesia Nicotine dependence, cigarettes, in remission Bipolar disorder, in partial remission, most recent episode manic Surgical History History of colonoscopy with polypectomy (~04/20/20) 2017 History of coronary angioplasty with insertion of stent 2006: 2 stents. 2008: 2 stents. History of hand surgery Repair right thumb fracture History of back surgery (01/17/13) History of bilateral breast reduction surgery History of right cataract extraction History of bilateral tubal ligation History of dilation and curettage (~1982) History of bladder surgery (~1989) Vaginal Urethral sling with possible anchors . Performed by Dr. Salas at [facility] [place]. History of hemorrhoidectomy History of cholecystectomy History of vaginal hysterectomy Still has ovaries. Performed in [place], [place]. Performed due to bleeding. Family History Brother Heart disease Hypertension Hypercholesteremia Diabetes Sister Thyroid disease Social History Smoking and tobacco/nicotine status: former use of tobacco/nicotine Substance/Drug Use: never Lives independently: Yes Household members: none Marital status: Current occupational status: disabled Do you think of yourself as: Straight/Heterosexual Current gender identity: Female Vitals/I&O/Wt Last Vital Signs Temp 98.3 F 03/16/23 15:57 Pulse 94 03/16/23 15:57 Resp 17 03/16/23 15:57 BP 119/62 03/16/23 19:30 Pulse Ox 92 03/16/23 19:30 O2 Del Method Room Air 03/16/23 15:57 03/16/23 03/16/23 03/16/23 06:59 14:59 22:59 Intake Total 1000 / 1000 Balance 1000 / 1000 Weight last 48 hrs Weight 64.41 kg Physical Exam 2 Narrative: Clinically patient is dry Clinical signs of dehydration S1, S2 Sinus tachycardia Abdomen soft Lower extremity no edema GCS 15 Strong smell of nicotine in the room Nonfocal neuro exam No active tremors Daughter at the bedside Currently on 2 L nasal cannula Data 03/16/23 16:45 03/16/23 16:45 A&P Assessment and plan (1) Hyponatremia: (2) Nausea & vomiting: Qualifiers: Vomiting type: unspecified Qualified Code(s): R11.2 - Nausea with vomiting, unspecified (3) Weakness generalized: (4) Incidental pulmonary nodule, > 3mm and < 8mm: (5) Traumatic compression fracture of L1 lumbar vertebra: Plan Acute on chronic hyponatremia Concern for SIADH She has received 2 L in the ER I would not give further fluids We will put her on fluid restriction Patient has been experiencing nausea and vomiting for last 1 month In the past she has had multiple falls require short-term rehab as well she also suffers from tardive dyskinesia which required adjustment of her antipsychotic medications Patient is stating that her tremors are chronic She was given urea sodium tablets She is patient has not followed up with 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 Her baseline sodium fluctuates between 130-135 Generalized weakness and fatigue we will request physical therapy we will request physical therapy not endorsing active signs of UTI ACute hypoxia Nonoxygen dependent COPD, currently on 2 L Requested chest x-ray Active smoker has hx of pulmonary nodules Full code DVT PPX added Consis carb diet w insulin sliding scale Attestations 2 Medical Necessity Statement*: Anticipating discharge within 48 hours Diagnoses Hyponatremia E87.1 Nausea & vomiting R11.2 Vomiting type: unspecified Weakness generalized R53.1 Incidental pulmonary nodule, > 3mm and < 8mm R91.1 Traumatic compression fracture of L1 lumbar vertebra S32.010A
--- NOTE | 2023-03-16 21:03 | XRR_ITS ---
PROCEDURE INFORMATION: Exam: XR Chest Exam date and time: 03/16/2023 9:10 PM Age: 77 years old Clinical indication: Other: Hypoxia TECHNIQUE: Imaging protocol: Radiologic exam of the chest. Views: 1 view. COMPARISON: CR (CHEST, ) 10/24/2022 11:43 PM FINDINGS: Lungs: Emphysematous changes. Pleural spaces: Unremarkable. No pleural effusion. No pneumothorax. Heart/Mediastinum: Unremarkable. No cardiomegaly. Bones/joints: Unremarkable. XR/XR chest 1V portable [id number] IMPRESSION: 1. Negative for infiltrate 2. Emphysematous changes.
[2023-03-16 22:02] LABS: Alcohol Level < 10 mg/dL (0-10); Estmated Average Glucose 114; Hemoglobin A1C 5.6 % (4.0-6.0)
[2023-03-16 22:06] LABS: Thyroid Stimulating Hormone 1.39 uIU/mL (0.27-4.20)
[2023-03-16] MEDS: ropinirole 2 mg Tablet PO (22:44)
[2023-03-16] MEDS: enoxaparin 40 mg/0.4 mL Syringe SUBCUT (22:44)
[2023-03-16] MEDS: acetaminophen 500 mg Tablet PO (22:49)
[2023-03-17] VITALS (11 sets, daily range): BP systolic 109–173; BP diastolic 55–78; PULSE 74–95; RESP 14–18; TEMP 36.6–37; O2SAT 90–95; BMI 24.0
[2023-03-17 01:55] LABS: Vitamin B12 327 pg/mL (232-1245)
[2023-03-17 02:15] LABS: Amphetamines Screen Urine Negative (Negative); Barbiturates Screen Urine Negative (Negative); Benzodiazepines Screen Urine Negative (Negative); Cocaine Screen Urine Negative (Negative); Opiate Screen Urine Negative (Negative); PCP Screen Urine Negative (Negative); THC Screen Urine Negative (Negative)
[2023-03-17] MEDS: acetaminophen 500 mg Tablet PO (02:57)
[2023-03-17 05:37] LABS: Basophils % 1.4 %; Eosinophils # 0.1 10^3/uL (0.0-0.8); Eosinophils % 2.4 %; Hematocrit 29.2 % (36-47); Lymphocytes # 1.2 10^3/uL (0.8-4.8); Lymphocytes % 55.2 %; Mean Corpuscular HGB Conc 32.5 g/dL (30-55); Mean Corpuscular Hemoglobin 27.8 pg (27-33); Mean Corpuscular Volume 85.4 fl (85-98); Mean Platelet Volume 9.2 fL (7.4-10.4); Monocytes # 0.3 10^3/uL (0.2-0.9); Nucleated Red Blood Cells % 0 %; Platelet Count 206 10^3/cmm (157-399); Red Blood Count 3.42 10^6/uL (3.85-5.65); Red Cell Distribution Width 13.4 % (12.1-15.1); White Blood Count 2.12 10^3/uL (3.29-11.43)
[2023-03-17 05:56] LABS: Anion Gap 13.8 (5-19); Blood Urea Nitrogen 8 mg/dL (8-23); Calcium 8.4 mg/dL (8.5-10.5); Carbon Dioxide 20 mmol/L (22-29); Chloride 95 mmol/L (98-107); Glucose 95 mg/dL (65-115); Magnesium 1.5 mg/dL (1.7-2.3); Osmolality Calculated 258 mOsm/kg (285-295); Potassium 3.8 mmol/L (3.5-5.1); Sodium 125 mmol/L (136-145)
[2023-03-17 06:12] LABS: Neutrophils # 0.53 10^3/uL (1.8-7.7)
[2023-03-17 07:27] LABS: Glucose Point of Care 99 mg/dL (70-110)
[2023-03-17] MEDS: hyDRALAzine 50 mg Tablet PO ×2 (08:20→17:11)
[2023-03-17] MEDS: levothyroxine 100 mcg Tablet PO (08:20)
[2023-03-17] MEDS: losartan 50 mg Tablet PO (08:20)
[2023-03-17] MEDS: sodium chloride 1 gm Tablet PO ×2 (08:20→17:10)
[2023-03-17] MEDS: hydroxychloroquine 200 mg Tablet PO (08:20)
[2023-03-17] MEDS: clopidogrel 75 mg Tablet PO (08:22)
[2023-03-17] MEDS: amlodipine 10 mg Tablet PO (08:22)
[2023-03-17] MEDS: duloxetine 60 mg Capsule PO (08:22)
[2023-03-17] MEDS: ondansetron 2 mg/ML SDV 2 mL 4 MG IVP ×2 (08:31→22:23)
[2023-03-17 09:34] LABS: Ferritin 50 ng/mL (15-150); Iron 46 ug/dL (37-145)
[2023-03-17 09:49] LABS: Folate Level 5.3 ng/mL (4.8-37.3); Vitamin B12 257 pg/mL (232-1245)
[2023-03-17 11:44] LABS: Glucose Point of Care 125 mg/dL (70-110)
[2023-03-17 12:11] LABS: Basophils % 1.1 %; Eosinophils # 0.1 10^3/uL (0.0-0.8); Eosinophils % 5.1 %; Hematocrit 32.9 % (36-47); Lymphocytes # 0.9 10^3/uL (0.8-4.8); Lymphocytes % 48.9 %; Mean Corpuscular HGB Conc 31.6 g/dL (30-55); Mean Corpuscular Hemoglobin 27.4 pg (27-33); Mean Corpuscular Volume 86.6 fl (85-98); Mean Platelet Volume 8.6 fL (7.4-10.4); Monocytes # 0.3 10^3/uL (0.2-0.9); Neutrophils % 27.9 %; Nucleated Red Blood Cells % 0 %; Platelet Count 231 10^3/cmm (157-399); Red Cell Distribution Width 13.2 % (12.1-15.1); White Blood Count 1.76 10^3/uL (3.29-11.43)
[2023-03-17 12:34] LABS: Sodium 125 mmol/L (136-145)
[2023-03-17 12:36] LABS: Neutrophils # 0.49 10^3/uL (1.8-7.7)
--- NOTE | 2023-03-17 13:57 | P.PN_ITS ---
Subjective 2 Subjective: Patient was seen this morning, she reports weakness, fatigue, tiredness, we discussed her acute on chronic hyponatremia, will continue to monitor it, denies any headache, blurry vision, we discussed her neutropenia, I am worried about possible agranulocytosis, with possibly a Tegretol that she takes, she is not exactly sure why she takes it, no history of seizures, denies any fevers, chills, dysuria her urinalysis looks okay, her chest x-ray looks okay, no significant blood evidence of infection we will have to monitor closely she is afebrile here Vitals/I&O/Wt Last Vital Signs Temp 98.6 F 03/17/23 12:00 Pulse 89 03/17/23 12:00 Resp 16 03/17/23 12:00 BP 127/66 03/17/23 12:00 Pulse Ox 94 03/17/23 12:00 O2 Del Method Room Air 03/17/23 10:14 03/16/23 03/17/23 03/17/23 22:59 06:59 14:59 Intake Total 2600 / 2600 237 / 2837 480 / 480 Output Total 125 / 125 200 / 200 Balance 2600 / 2600 112 / 2712 280 / 280 Weight last 48 hrs Weight 65.635 kg Weight 65.635 kg Weight 64.41 kg Physical Exam 2 Const: COMMON NORMALS: no acute distress and patient oriented x3 Resp: COMMON NORMALS: normal respiratory effort, No retractions, No use of accessory muscles and clear to auscultation bilaterally AUSCULTATION: clear to auscultation bilaterally Cardio: COMMON NORMALS: regular rate, regular rhythm, S1 normal heart sound present and S2 normal heart sound present RATE: regular rate RHYTHM: r egular rhythm HEART SOUNDS: S1 normal heart sound present and S2 normal heart sound present GI: COMMON NORMALS: Normal to inspection, nondistended, normoactive bowel sounds present Extremity: COMMON NORMALS: no pedal edema Neuro: COMMON NORMALS: patient oriented x3 Psych: COMMON NORMALS: mental status grossly normal Data 03/17/23 11:45 03/17/23 11:45 Micro: Microbiology 03/17/23 09:20 Blood Culture - Preliminary Blood SPECIMEN COLLECTED 03/17/23 09:17 Blood Culture - Preliminary Blood SPECIMEN COLLECTED A&P Assessment and plan (1) Hyponatremia: (2) Nausea & vomiting: Qualifiers: Vomiting type: unspecified Qualified Code(s): R11.2 - Nausea with vomiting, unspecified (3) Weakness generalized: (4) Incidental pulmonary nodule, > 3mm and < 8mm: (5) Traumatic compression fracture of L1 lumbar vertebra: (6) Agranulocytosis: (7) Neutropenia: Plan Acute on chronic hyponatremia Concern for SIADH She has received 2 L in the ER I would not give further fluids We will put her on fluid restriction Patient has been experiencing nausea and vomiting for last 1 month In the past she has had multiple falls require short-term rehab as well she also suffers from tardive dyskinesia which required adjustment of her antipsychotic medications Patient is stating that her tremors are chronic She was given urea sodium tablets She is patient has not followed up with human resources office assistant outpatient Her baseline sodium fluctuates between 130-135 ? Monitor serum sodium every 4 hours Agranulocytosis, neutropenia, ? No fevers, ? Urinalysis no UTI, chest x-ray within normal limits, no significant inflammatory marker elevation, concern for agranulocytosis related to Tegretol hold Tegretol Generalized weakness and fatigue we will request physical therapy we will request physical therapy not endorsing active signs of UTI ACute hypoxia Nonoxygen dependent COPD, currently on 2 L Requested chest x-ray Active smoker has hx of pulmonary nodules Full code DVT PPX added Consis carb diet w insulin sliding scale Attestations 2 Medical Necessity Statement*: Patient requires hospitalization for acute on chronic hyponatremia, agranulocytosis,, inpatient, greater than 2 midnights Diagnoses Hyponatremia E87.1 Nausea & vomiting R11.2 Vomiting type: unspecified Weakness generalized R53.1 Incidental pulmonary nodule, > 3mm and < 8mm R91.1 Traumatic compression fracture of L1 lumbar vertebra S32.010A Agranulocytosis D70.9 Neutropenia D70.9
[2023-03-17 16:40] LABS: Glucose Point of Care 111 mg/dL (70-110)
[2023-03-17 17:33] LABS: Sodium 124 mmol/L (136-145)
[2023-03-17 20:30] LABS: Glucose Point of Care 94 mg/dL (70-110)
[2023-03-17 20:42] LABS: Sodium 126 mmol/L (136-145)
[2023-03-17] MEDS: ropinirole 2 mg Tablet PO (21:44)
[2023-03-17] MEDS: enoxaparin 40 mg/0.4 mL Syringe SUBCUT (21:44)
[2023-03-18] VITALS (8 sets, daily range): BP systolic 102–148; BP diastolic 57–76; PULSE 78–91; RESP 15–18; TEMP 36.7–37.1; O2SAT 92–97
[2023-03-18 02:49] LABS: Basophils % 0.8 %; Eosinophils % 1.6 %; Lymphocytes # 1.1 10^3/uL (0.8-4.8); Lymphocytes % 46.1 %; Mean Corpuscular HGB Conc 32.7 g/dL (30-55); Mean Corpuscular Hemoglobin 28.1 pg (27-33); Mean Corpuscular Volume 85.9 fl (85-98); Mean Platelet Volume 8.9 fL (7.4-10.4); Monocytes # 0.4 10^3/uL (0.2-0.9); Monocytes % 17.6 %; Neutrophils % 33.5 %; Nucleated Red Blood Cells % 0 %; Platelet Count 237 10^3/cmm (157-399); Red Blood Count 3.84 10^6/uL (3.85-5.65); Red Cell Distribution Width 13.3 % (12.1-15.1); White Blood Count 2.45 10^3/uL (3.29-11.43)
[2023-03-18 03:15] LABS: Alanine Aminotransferase 8 U/L (0-33); Albumin Level 3.8 g/dL (3.5-5.2); Alkaline Phosphatase 66 U/L (35-105); Anion Gap 13.9 (5-19); Aspartate Amino Transferase 15 U/L (0-32); Blood Urea Nitrogen 6 mg/dL (8-23); Calcium 9.1 mg/dL (8.5-10.5); Carbon Dioxide 24 mmol/L (22-29); Chloride 94 mmol/L (98-107); Globulin 2.6 g/dL (1.3-4.6); Glucose 85 mg/dL (65-115); Magnesium 1.6 mg/dL (1.7-2.3); Osmolality Calculated 263 mOsm/kg (285-295); Phosphorus 2.7 mg/dL (2.5-4.5); Potassium 3.9 mmol/L (3.5-5.1); Sodium 128 mmol/L (136-145); Total Bilirubin 0.2 mg/dL (0.15-1.2); Total Protein 6.4 g/dL (6.6-8.7)
[2023-03-18 03:25] LABS: Neutrophils # 0.82 10^3/uL (1.8-7.7)
[2023-03-18 06:24] LABS: Glucose Point of Care 96 mg/dL (70-110)
[2023-03-18] MEDS: duloxetine 60 mg Capsule PO (08:28)
[2023-03-18] MEDS: sodium chloride 1 gm Tablet PO ×2 (08:28→17:26)
[2023-03-18] MEDS: levothyroxine 100 mcg Tablet PO (08:28)
[2023-03-18] MEDS: amlodipine 10 mg Tablet PO (08:28)
[2023-03-18] MEDS: hyDRALAzine 50 mg Tablet PO ×2 (08:28→17:26)
[2023-03-18] MEDS: clopidogrel 75 mg Tablet PO (08:28)
[2023-03-18] MEDS: losartan 50 mg Tablet PO (08:29)
[2023-03-18] MEDS: ondansetron 2 mg/ML SDV 2 mL 4 MG IVP (09:09)
[2023-03-18 11:31] LABS: Glucose Point of Care 99 mg/dL (70-110)
[2023-03-18] MEDS: nicotine 21 mg Patch 1 PATCH TRANSDERMA (13:13)
--- NOTE | 2023-03-18 14:40 | P.PN_ITS ---
Subjective 2 Subjective: Patient was seen this morning, she is alert oriented x3, follows all commands, no headache, blurry vision, no nausea, no vomiting, no fevers Vitals/I&O/Wt Last Vital Signs Temp 98.5 F 03/18/23 12:00 Pulse 80 03/18/23 12:00 Resp 18 03/18/23 12:00 BP 137/62 03/18/23 12:00 Pulse Ox 94 03/18/23 12:00 O2 Del Method Room Air 03/18/23 12:00 03/17/23 03/18/23 03/18/23 22:59 06:59 14:59 Intake Total 340 / 820 600 / 600 Output Total 600 / 800 950 / 1750 400 / 400 Balance -260 / 20 -950 / -930 200 / 200 Weight last 48 hrs Weight 64.467 kg Weight 65.635 kg Weight 65.635 kg Weight 64.41 kg Physical Exam 2 Const: COMMON NORMALS: no acute distress and patient oriented x3 Resp: COMMON NORMALS: normal respiratory effort, No retractions, No use of accessory muscles and clear to auscultation bilaterally AUSCULTATION: clear to auscultation bilaterally Cardio: COMMON NORMALS: regular rate, regular rhythm, S1 normal heart sound present and S2 normal heart sound present RATE: regular rate RHYTHM: r egular rhythm HEART SOUNDS: S1 normal heart sound present and S2 normal heart sound present GI: COMMON NORMALS: Normal to inspection, nondistended, normoactive bowel sounds present and non-tender Extremity: COMMON NORMALS: no pedal edema Neuro: COMMON NORMALS: patient oriented x3 Psych: COMMON NORMALS: mental status grossly normal Data 03/18/23 01:50 03/18/23 01:50 Micro: Microbiology 03/17/23 09:20 Blood Culture - Preliminary Blood NEGATIVE TO DATE 03/17/23 09:17 Blood Culture - Preliminary Blood NEGATIVE TO DATE A&P Assessment and plan (1) Hyponatremia: (2) Nausea & vomiting: Qualifiers: Vomiting type: unspecified Qualified Code(s): R11.2 - Nausea with vomiting, unspecified (3) Weakness generalized: (4) Incidental pulmonary nodule, > 3mm and < 8mm: (5) Traumatic compression fracture of L1 lumbar vertebra: (6) Agranulocytosis: (7) Neutropenia: Plan Acute on chronic hyponatremia 128 Concern for SIADH She has received 2 L in the ER I would not give further fluids We will put her on fluid restriction Patient has been experiencing nausea and vomiting for last 1 month In the past she has had multiple falls require short-term rehab as well she also suffers from tardive dyskinesia which required adjustment of her antipsychotic medications Patient is stating that her tremors are chronic She was given urea sodium tablets She is patient has not followed up with manager new product outpatient Her baseline sodium fluctuates between 130-135 ? Monitor serum sodium every 4 hours Agranulocytosis, neutropenia, ? No fevers, ? Urinalysis no UTI, chest x-ray within normal limits, no significant inflammatory marker elevation, concern for agranulocytosis related to Tegretol hold Tegretol Generalized weakness and fatigue we will request physical therapy we will request physical therapy not endorsing active signs of UTI ACute hypoxia Nonoxygen dependent COPD, currently on 2 L Requested chest x-ray Active smoker has hx of pulmonary nodules Full code DVT PPX added Consis carb diet w insulin sliding scale Plan continue to hold Tegretol monitor sodium, monitor neutrophil count, likely discharge tomorrow Attestations 2 Medical Necessity Statement*: Patient requires hospitalization for acute on chronic hyponatremia, agranulocytosis, neutropenia Diagnoses Hyponatremia E87.1 Nausea & vomiting R11.2 Vomiting type: unspecified Weakness generalized R53.1 Incidental pulmonary nodule, > 3mm and < 8mm R91.1 Traumatic compression fracture of L1 lumbar vertebra S32.010A Agranulocytosis D70.9 Neutropenia D70.9
[2023-03-18] MEDS: insulin lispro 100 unit/1 mL SUBCUT (17:27)
[2023-03-18] MEDS: gabapentin 400 mg Capsule 800 MG PO ×2 (18:39→21:29)
[2023-03-18] MEDS: ropinirole 2 mg Tablet PO (21:29)
[2023-03-18] MEDS: enoxaparin 40 mg/0.4 mL Syringe SUBCUT (21:29)
[2023-03-18 21:55] LABS: Glucose Point of Care 98 mg/dL (70-110)
[2023-03-19 03:42] LABS: Basophils % 1.5 %; Eosinophils % 1.5 %; Hematocrit 32.5 % (36-47); Lymphocytes % 51.3 %; Mean Corpuscular HGB Conc 32.3 g/dL (30-55); Mean Corpuscular Hemoglobin 27.5 pg (27-33); Mean Corpuscular Volume 85.1 fl (85-98); Mean Platelet Volume 9.2 fL (7.4-10.4); Monocytes # 0.4 10^3/uL (0.2-0.9); Neutrophils % 26.2 %; Nucleated Red Blood Cells % 0 %; Platelet Count 191 10^3/cmm (157-399); Red Blood Count 3.82 10^6/uL (3.85-5.65); Red Cell Distribution Width 13.4 % (12.1-15.1); White Blood Count 1.95 10^3/uL (3.29-11.43)
[2023-03-19 03:53] LABS: Neutrophils # 0.51 10^3/uL (1.8-7.7)
[2023-03-19 04:00] VITALS: BP 144/71; PULSE 71; RESP 17; TEMP 36.9; O2SAT 94
[2023-03-19 04:07] LABS: Alanine Aminotransferase 7 U/L (0-33); Albumin Level 3.5 g/dL (3.5-5.2); Alkaline Phosphatase 61 U/L (35-105); Aspartate Amino Transferase 14 U/L (0-32); Blood Urea Nitrogen 6 mg/dL (8-23); Calcium 8.8 mg/dL (8.5-10.5); Carbon Dioxide 20 mmol/L (22-29); Chloride 97 mmol/L (98-107); Globulin 2.6 g/dL (1.3-4.6); Glucose 87 mg/dL (65-115); Magnesium 1.7 mg/dL (1.7-2.3); Osmolality Calculated 265 mOsm/kg (285-295); Phosphorus 2.9 mg/dL (2.5-4.5); Sodium 129 mmol/L (136-145); Total Bilirubin 0.3 mg/dL (0.15-1.2); Total Protein 6.1 g/dL (6.6-8.7)
[2023-03-19 04:11] LABS: Anion Gap 15.8 (5-19); Potassium 3.8 mmol/L (3.5-5.1)
[2023-03-19 06:38] LABS: Glucose Point of Care 91 mg/dL (70-110)
[2023-03-19 08:00] VITALS: BP 162/76; PULSE 80; RESP 16; TEMP 37.2; O2SAT 96
[2023-03-19 08:07] VITALS: BP 144/71
[2023-03-19] MEDS: sodium chloride 1 gm Tablet PO (08:07)
[2023-03-19] MEDS: duloxetine 60 mg Capsule PO (08:07)
[2023-03-19] MEDS: gabapentin 400 mg Capsule 800 MG PO (08:07)
[2023-03-19] MEDS: losartan 50 mg Tablet PO (08:07)
[2023-03-19] MEDS: levothyroxine 100 mcg Tablet PO (08:08)
[2023-03-19] MEDS: hyDRALAzine 50 mg Tablet PO (08:08)
[2023-03-19] MEDS: amlodipine 10 mg Tablet PO (08:08)
[2023-03-19] MEDS: nicotine 21 mg Patch 1 PATCH TRANSDERMA (08:08)
[2023-03-19] MEDS: clopidogrel 75 mg Tablet PO (08:08)
[2023-03-19 10:06] VITALS: PULSE 71; RESP 16; O2SAT 94
--- NOTE | 2023-03-19 10:13 | P.DS_ITS ---
Discharge Providers Date of Admission: 03/17/23 14:31 Date of Discharge: March 19, 2023 Attending Provider at Admission: Jose F Leon MD Attending Provider at Discharge: Tyrone Foreman MD Primary Care Provider: Brett Guallpa MD Diagnoses at Discharge Discharge Diagnosis (1) Hyponatremia: Status: Acute (2) Nausea & vomiting: Status: Acute Qualifiers: Vomiting type: unspecified Qualified Code(s): R11.2 - Nausea with vomiting, unspecified (3) Weakness generalized: Status: Acute (4) Incidental pulmonary nodule, > 3mm and < 8mm: Status: Acute (5) Traumatic compression fracture of L1 lumbar vertebra: Status: Acute (6) Agranulocytosis: Status: Acute (7) Neutropenia: Status: Acute Reason for Visit Reason for Visit: high tirso SUAZO, sent Hospital Course Hospital Course Elyssa Daniels is a 77 year old female with history of chronic hyponatremia concern for SIADH does not follow any fluid restricted diet, still smoking on daily basis, presented with generalized weakness and fatigue with recurrent falls. Patient is stating that for last 1 months she has been experiencing vomiting every time she is taking her medications, she has chronic tremors, with poor appetite, She has not noticed any chest pain, syncope, stroke related symptoms. For patient's acute on chronic hyponatremia, monitored as inpatient, fluid restrictions, salt tablets, overall serum sodium improved, 129, her baseline is 1 30-1 35, no headache, no blurry vision, no nausea, no vomiting, patient needs to follow-up with primary care provider on for recheck hemoglobin consider nephrology outpatient follow-up Patient did have agranulocytosis, neutropenia during hospitalizations no fevers, no significant evidence of UTI chest x-ray within normal limits, remained afebrile, agranulocytosis likely secondary to Tegretol which is held, white blood cell count and neutrophil count improved. Still within low range on discharge, patient was adamant about going home, advanced to wear a facemask, hand wash, monitor for symptomatology if any fevers this is an emergency come to the emergency room. I will discharge on her as she is adamant about going home on 5 days of Levaquin 500 mg once daily for 5 days, recheck CBC on for agranulocytosis and neutropenia. Continue to hold Tegretol and likely permanently discontinue as outpatient. Physical Exam Const: COMMON NORMALS: no acute distress and patient oriented x3 Resp: COMMON NORMALS: normal respiratory effort, No retractions, No use of accessory muscles and clear to auscultation bilaterally AUSCULTATION: clear to auscultation bilaterally Cardio: COMMON NORMALS: regular rate, regular rhythm, S1 normal heart sound present and S2 normal heart sound present RATE: regular rate RHYTHM: regular rhythm HEART SOUNDS: S1 normal heart sound present and S2 normal heart sound present GI: COMMON NORMALS: Normal to inspection, nondistended, normoactive bowel sounds present and non-tender Extremity: COMMON NORMALS: no pedal edema Neuro: COMMON NORMALS: patient oriented x3 Psych: COMMON NORMALS: mental status grossly normal Discharge Data Studies Completed and Pending Completed Studies During Hospitalization Category Date Time Status XR chest 1V portable [id number] Routine Exams 03/16/23 21:03 Completed Pending at discharge Category Date Time Status Blood Culture Stat Lab 03/17/23 09:20 Results Complete Blood Count w/Auto AM LABS Lab 03/20/23 04:00 Ordered Comprehensive Metabolic Panel AM LABS Lab 03/20/23 04:00 Ordered Magnesium AM LABS Lab 03/20/23 04:00 Ordered Phosphorus AM LABS Lab 03/20/23 04:00 Ordered Respiratory Panel 2 Routine Lab 03/17/23 10:07 Stop Req Radiology Impressions Chest X-Ray 03/16/23 21:03 IMPRESSION: 1. Negative for infiltrate 2. Emphysematous changes. Laboratory Results WBC 1.95 10^3/uL (3.29-11.43) L 03/19/23 02:48 RBC 3.82 10^6/uL (3.85-5.65) L 03/19/23 02:48 Hgb 10.50 g/dL (11.27-16.99) L 03/19/23 02:48 Hct 32.5 % (36-47) L 03/19/23 02:48 MCV 85.1 fl (85-98) 03/19/23 02:48 MCH 27.5 pg (27-33) 03/19/23 02:48 MCHC 32.3 g/dL (30-55) 03/19/23 02:48 RDW 13.4 % (12.1-15.1) 03/19/23 02:48 Plt Count 191 10^3/cmm (157-399) 03/19/23 02:48 MPV 9.2 fL (7.4-10.4) 03/19/23 02:48 Neut % (Auto) 26.2 % 03/19/23 02:48 Lymph % (Auto) 51.3 % 03/19/23 02:48 [place] % (Auto) 19.0 % 03/19/23 02:48 Eos % (Auto) 1.5 % 03/19/23 02:48 Baso % (Auto) 1.5 % 03/19/23 02:48 Neut # (Auto) 0.51 10^3/uL (1.8-7.7) L* 03/19/23 02:48 Lymph # (Auto) 1.0 10^3/uL (0.8-4.8) 03/19/23 02:48 [place] # (Auto) 0.4 10^3/uL (0.2-0.9) 03/19/23 02:48 Eos # (Auto) 0.0 10^3/uL (0.0-0.8) 03/19/23 02:48 Baso # (Auto) 0.0 10^3/uL (0.0-0.1) 03/19/23 02:48 Nucleated RBC % (auto) 0 % 03/19/23 02:48 Nucleated RBCs # 0.0 /100WBC 03/19/23 02:48 Sodium 129 mmol/L (136-145) L 03/19/23 02:48 Potassium 3.8 mmol/L (3.5-5.1) 03/19/23 02:48 Chloride 97 mmol/L (98-107) L 03/19/23 02:48 Carbon Dioxide 20 mmol/L (22-29) L 03/19/23 02:48 Anion Gap 15.8 (5-19) 03/19/23 02:48 BUN 6 mg/dL (8-23) L 03/19/23 02:48 Creatinine 0.7 mg/dL (0.5-0.9) 03/19/23 02:48 GFR Calculation Not Reportable 03/19/23 02:48 Glucose 87 mg/dL (65-115) 03/19/23 02:48 POC Glucose 91 mg/dL (70-110) 03/19/23 06:35 Estimat Average Glucose 114 03/16/23 16:10 Hemoglobin A1c 5.6 % (4.0-6.0) 03/16/23 16:10 Calculated Osmolality 265 mOsm/kg (285-295) L 03/19/23 02:48 Calcium 8.8 mg/dL (8.5-10.5) 03/19/23 02:48 Phosphorus 2.9 mg/dL (2.5-4.5) 03/19/23 02:48 Magnesium 1.7 mg/dL (1.7-2.3) 03/19/23 02:48 Iron 46 ug/dL (37-145) 03/17/23 04:55 Ferritin 50 ng/mL (15-150) 03/17/23 04:55 Total Bilirubin 0.3 mg/dL (0.15-1.2) 03/19/23 02:48 AST 14 U/L (0-32) 03/19/23 02:48 ALT 7 U/L (0-33) 03/19/23 02:48 Alkaline Phosphatase 61 U/L (35-105) 03/19/23 02:48 C-Reactive Protein 3.0 mg/L (0.0-4.9) 03/17/23 04:55 Total Protein 6.1 g/dL (6.6-8.7) L 03/19/23 02:48 Albumin 3.5 g/dL (3.5-5.2) 03/19/23 02:48 Globulin 2.6 g/dL (1.3-4.6) 03/19/23 02:48 Lipase 61 U/L (13-60) H 03/16/23 16:45 Vitamin B12 257 pg/mL (232-1245) 03/17/23 04:55 Folate 5.3 ng/mL (4.8-37.3) 03/17/23 04:55 TSH 1.39 uIU/mL (0.27-4.20) 03/16/23 16:10 Urine Color Yellow (Yellow) 03/16/23 18:15 Urine Appearance Clear (CLEAR) 03/16/23 18:15 Urine pH 7 (5-7) 03/16/23 18:15 Ur Specific [place] 1.010 (1.005-1.030) 03/16/23 18:15 Urine Protein Neg (Negative) 03/16/23 18:15 Urine Glucose (UA) Norm (Normal) 03/16/23 18:15 Urine Ketones Negative (Negative) 03/16/23 18:15 Urine Blood Neg (Negative) 03/16/23 18:15 Urine Nitrate Negative (Negative) 03/16/23 18:15 Urine Bilirubin Neg (Negative) 03/16/23 18:15 Urine Urobilinogen Neg mg/dL (Negative) 03/16/23 18:15 Ur Leukocyte Esterase Negative (Negative) 03/16/23 18:15 Urine Opiates Screen Negative ng/mL (Negative) 03/17/23 02:00 Ur Barbiturates Screen Negative ng/mL (Negative) 03/17/23 02:00 Ur Phencyclidine Scrn Negative ng/mL (Negative) 03/17/23 02:00 Ur Amphetamines Screen Negative ng/mL (Negative) 03/17/23 02:00 U Benzodiazepines Scrn Negative ng/mL (Negative) 03/17/23 02:00 Urine Cocaine Screen Negative ng/mL (Negative) 03/17/23 02:00 U Marijuana (THC) Screen Negative ng/mL (Negative) 03/17/23 02:00 Ethyl Alcohol < 10 mg/dL (0-10) 03/16/23 16:10 Vitals Last Vital Signs Temp 98.9 F 03/19/23 08:00 Pulse 71 03/19/23 10:06 Resp 16 03/19/23 10:06 BP 144/71 03/19/23 08:07 Pulse Ox 94 03/19/23 10:06 O2 Del Method Room Air 03/19/23 10:06 Discharge Plan Discharge Patient Disposition: Home Condition: Stable Prescriptions: New levofloxacin 500 mg tablet 500 mg PO DAILY 5 Days Qty: 5 0RF sodium chloride 1,000 mg Tablet,Soluble 1,000 mg PO BID 7 Days Qty: 14 0RF Continued atorvastatin [Lipitor] 80 mg tablet 80 mg PO DAILY Breztri Aerosphere 160-9-4.8 mcg/actuation HFA aerosol inhaler 2 inh inhalation BID 30 Days Qty: 10.7 6RF ropinirole 2 mg tablet 2 mg PO BEDTIME duloxetine [Cymbalta] 60 mg capsule,delayed release(DR/EC) 60 mg PO DAILY Qty: 30 2RF Ingrezza 80 mg capsule 80 mg PO DAILY Qty: 30 2RF (DME) diabetic shoes with 3 pairs inserts See Rx Instructions .Route .MEDSUPPLY Qty: 1 0RF Rx Instructions: As directed HOME (DME) NIDIA chao See Rx Instructions .Route .MEDSUPPLY Qty: 1 0RF Rx Instructions: As directed albuterol sulfate [Ventolin HFA] 90 mcg/actuation HFA aerosol inhaler 2 puff inhalation QID PRN (Reason: Shortness Of Breath) fenofibrate 54 mg tablet 54 mg PO DAILY acetaminophen 650 mg tablet extended release 650 mg PO Q6H PRN (Reason: pain) Qty: 20 0RF levothyroxine 100 mcg tablet 100 mcg PO DAILY metformin 1,000 mg tablet 1,000 mg PO BID nitroglycerin [Nitrostat] 0.4 mg Tablet, Sublingual 0.4 mg SUBLINGUAL Q5M PRN (Reason: Chest Pain) Rx Instructions: do not exceed 3 doses per episode oxybutynin chloride 10 mg tablet extended release 24hr 20 mg PO DAILY clopidogrel 75 mg tablet 75 mg PO DAILY gabapentin 800 mg tablet 800 mg PO TID amlodipine 10 mg tablet 10 mg PO DAILY Qty: 30 0RF losartan 100 mg tablet 100 mg PO DAILY Qty: 30 0RF hydralazine 50 mg tablet 50 mg PO BID Qty: 60 4RF Held hydroxychloroquine 200 mg tablet 200 mg PO BID Qty: 60 0RF Hold Instructions: Resume on 03/26/23. hod until you see primary care, repeat cbc Discontinued carbamazepine 200 mg tablet 200 mg PO BID Qty: 60 3RF meloxicam 15 mg tablet 15 mg PO DAILY Qty: 60 0RF hydrochlorothiazide 25 mg tablet 25 mg PO DAILY Discharge Orders: Discharge Order (Routine); Ordered 03/19/23 Ordered By: Tyrone Foreman Referrals: Brett Guallpa MD [Primary Care Provider] - Discharge Diet: Cardiac Discharge Activity: Resume usual activity Patient Instructions: Opioid Safety Activity Restrictions/Additional Instructions: - Please limit fluid intake to 1 L of fluid a day which is 32 ounces ? See primary care provider on recheck CBC, for neutropenia, recheck sodium levels, ? Sodium level on discharge 129, ? Absolute neutrophil count 0.51, ? I am going to discharge her on low-dose Levaquin for neutropenia, please avoid large crowds, wear a facemask, hand wash, if you have any fevers please come back to the emergency room Discharge Attestations Time Spent in Discharge Care*: greater than 30 min Quality Metrics Clinical Quality Measures [ No reported AMI, CVA or VTE this stay] Coding Level of Care Code 93529 Total time (in minutes) for Discharge: 45 Diagnoses Hyponatremia E87.1 Nausea & vomiting R11.2 Vomiting type: unspecified Weakness generalized R53.1 Incidental pulmonary nodule, > 3mm and < 8mm R91.1 Traumatic compression fracture of L1 lumbar vertebra S32.010A Agranulocytosis D70.9 Neutropenia D70.9
[2023-03-19 10:43] VITALS: PULSE 71; RESP 16; O2SAT 94
== END 2023-03-19 10:44 | disposition home or self-care (01) | DRG 641 ==
LOC: ER 20:01 → MEDSURG 20:51
PROVIDERS: Physician Assistant; Admitting Provider Internal Medicine; Emergency Provider Emergency Medicine; PCP Family Medicine; Visit Provider Family Medicine
DX: E87.1 Hypo-osmolality and hyponatremia (principal); F33.41 Major depressive disorder, recurrent, in partial remission; F15.11 Other stimulant abuse, in remission; F12.11 Cannabis abuse, in remission; M06.9 Rheumatoid arthritis, unspecified; G20.C Parkinsonism, unspecified; I12.9 Hypertensive chronic kidney disease with stage 1 through stage 4 chronic kidney disease, or unspecified chronic kidney disease; E11.22 Type 2 diabetes mellitus with diabetic chronic kidney disease; N18.9 Chronic kidney disease, unspecified; Z87.891 Personal history of nicotine dependence; M32.9 Systemic lupus erythematosus, unspecified; J44.9 Chronic obstructive pulmonary disease, unspecified; I25.10 Atherosclerotic heart disease of native coronary artery without angina pectoris; Z95.5 Presence of coronary angioplasty implant and graft; E78.5 Hyperlipidemia, unspecified; E03.9 Hypothyroidism, unspecified; G24.4 Idiopathic orofacial dystonia; R91.1 Solitary pulmonary nodule; R09.02 Hypoxemia; D70.2 Other drug-induced agranulocytosis; T42.1X5A Adverse effect of iminostilbenes, initial encounter
CPT/HCPCS: 36415; 36416; 71045; 80048; 80053; 80306; 80307; 81003; 82607; 82728; 82746; 82962; 83036; 83540; 83690; 83735; 84100; 84295; 84443; 85025; 86140; 87040; 87086; 87486; 87581; 87633; 96361; 96372; 96374; 97110; 97161; 99285; G0378; J1650; J1815; J2405; J7030

== ENCOUNTER 2023-03-23 15:24 | Emergency (ER) | payer MEDICARE, SELFPAY ==
[2023-03-23 15:31] VITALS: BP 131/70; PULSE 131; RESP 16; TEMP 36.7; O2SAT 97; BMI 22.9
--- NOTE | 2023-03-23 15:34 | XRR_ITS ---
PROCEDURE INFORMATION: Exam: XR Chest Exam date and time: 03/23/2023 3:54 PM Age: 77 years old Clinical indication: Other: Weakness TECHNIQUE: Imaging protocol: Radiologic exam of the chest. Views: 1 view. COMPARISON: CR (CHEST, ) 03/16/2023 9:10 PM FINDINGS: Lungs: Unremarkable. No consolidation. Pleural spaces: Unremarkable. No pleural effusion. No pneumothorax. Heart/Mediastinum: Unremarkable. No cardiomegaly. Bones/joints: Unremarkable. XR/XR chest 1V portable [id number] IMPRESSION: No acute findings.
--- NOTE | 2023-03-23 15:58 | ED_ITS ---
Documented by User: Jovanni Mast DO 03/25/23 17:25 HPI - Weakness 2 General: Chief complaint: Weakness Stated complaint: weakness Time Seen by Provider: 03/23/23 15:40 Source: patient Mode of arrival: ambulatory History of Present Illness: 77-year-old female presents emergency ro om complaining of just generally not feeling well tremor weakness. She states she took her medications this morning shortly after that she began to not feel well she not had any fever sweats chills she was recently hospitalized was discharged earlier this week went home on a 5-day course of Levaquin per her request. Denies chest or abdominal pain no fever sweats chills vomiting or diarrhea MD Complaint: generalized weakness Onset (ago): hour(s) Duration: constant Relieving factors: none Exacerbating factors: none Associated symptoms: Denies chest pain, chills, confusion, melena, decreased appetite, diaphoresis, dysuria, easy bruising, fever(s), headache(s), myalgias, nausea, rash, short of breath, syncope or vomiting Review of Systems 2 Const: Denies: fever(s), chills or diaphoresis Card: Denies: chest pain or syncope Resp: Denies: dyspnea GI: Denies: abdominal pain, nausea, vomiting or melena : Denies: dysuria, urinary frequency or urinary urgency Musc: Denies: neck pain or back pain Skin/Breast: Denies: rash Neuro: Denies: headache(s) or confusion Kenny/Lymph: Denies: easy bruising PFSH ED 2 PFSH: Medical History Acute pain of left shoulder Altered mental status Rib fractures DAKSHA (acute kidney injury) Hypoxia Wheezing Weakness UTI (urinary tract infection) Diarrhea Hypomagnesemia Goals of care, counseling/discussion Hyponatremia Weakness Acute hyponatremia Fall Contusion of elbow, right Left rib fracture Closed left humeral fracture Acute renal insufficiency Acute hyponatremia Acute hyperkalemia Major depressive disorder, recurrent, in partial remission Alcohol use disorder in remission Cannabis use disorder, mild, in sustained remission, abuse Amphetamine use disorder, moderate, in sustained remission Tobacco use disorder, mild, in sustained remission Cervicalgia Trigeminal neuralgia Psychiatric care Rheumatoid arthritis SS-A antibody positive ZAY positive Dyspnea on exertion Parkinsonian tremor Chronic kidney disease (CKD) Incidental pulmonary nodule, > 3mm and < 8mm Lupus Chronic obstructive pulmonary disease Coronary artery disease Patient with stents Diabetes mellitus Hyperlipidemia Hypertension Urinary Incontinence Hypothyroidism Mass of right lung Follow-up of previous CAT scan Orofacial dyskinesia Tardive dyskinesia Nicotine dependence, cigarettes, in remission Bipolar disorder, in partial remission, most recent episode manic Surgical History History of colonoscopy with polypectomy (~04/20/20) 2017 History of coronary angioplasty with insertion of stent 2006: 2 stents. 2008: 2 stents. History of hand surgery Repair right thumb fracture History of back surgery (01/17/13) History of bilateral breast reduction surgery History of right cataract extraction History of bilateral tubal ligation History of dilation and curettage (~1982) History of bladder surgery (~1989) Vaginal Urethral sling with possible anchors . Performed by Dr. Salas at [facility] – [place], [place]. History of hemorrhoidectomy History of cholecystectomy History of vaginal hysterectomy Still has ovaries. Performed in [place], [place]. Performed due to bleeding. Family History Brother Heart disease Hypertension Hypercholesteremia Diabetes Sister Thyroid disease Social History Smoking and tobacco/nicotine status: former use of tobacco/nicotine Substance/Drug Use: never Lives independently: Yes Household members: none Marital status: Current occupational status: disabled Do you think of yourself as: Straight/Heterosexual Current gender identity: Female Physical Exam 2 Const: GENERAL APPEARANCE: cooperative and comfortable O RIENTATION/CONSCIOUSNESS: Yes awake, Yes oriented to person, Yes oriented to place and Yes oriented to time HENMT: COMMON NORMALS: normocephalic, atraumatic and hearing grossly normal bilaterally HEAD & SCALP: normocephalic and atraumatic Resp: COMMON NORMALS: normal respiratory effort, No retractions, No use of accessory muscles and clear to auscultation bilaterally AUSCULTATION: clear to auscultation bilaterally Cardio: COMMON NORMALS: regular rate, regular rhythm and No murmurs present (Cardio) RATE: regular rate RHYTHM: regular rhythm GI: COMMON NORMALS: Soft to palpation and No hepatosplenomegaly present A USCULTATION: Yes normoactive bowel sounds PALPATION: Yes Soft to palpation, No Tenderness to palpation present (GI), No Guarding due to palpation present (GI) and Yes No hepatosplenomegaly present Extremity: COMMON NORMALS: normal to inspection, capillary refill normal, no clubbing, cyanosis or edema, no calf tenderness and no pedal edema Neuro: SENSORIUM/ORIENTATION: Yes oriented to person, Yes oriented to place and Yes oriented to time Skin: COMMON NORMALS: no rashes or lesions noted GENERAL SKIN EXAM: no rashes or lesions noted Course 2 Vital Signs: Vital signs: Vital Signs Temperature 98.1 F 03/23/23 15:31 Pulse Rate 92 03/23/23 19:39 Respiratory Rate 21 H 03/23/23 19:39 Blood Pressure 138/70 03/23/23 19:39 Pulse Oximetry 96 03/23/23 19:39 Oxygen Delivery Me thod Room Air 03/23/23 18:28 MDM - Weakness Medical Decision Making Care signed out to Dr. Araujo at change of shift. See final notes for diagnosis and disposition. To patient comes to the ER just generally not feeling well with weakness and tremor. Patient had lab work done which showed CBC within hemoglobin 9.7 and hematocrit 31.2. CMP essentially benign. Chest x-ray showed no acute findings. Urine was a contaminated specimen. After fluids were finished patient stated she is feeling much better and is ready to go home. With no significant findings patient be discharged home with diagnosis of generalized weakness. Lab Data 03/23/23 15:51 03/23/23 15:51 Radiology Impressions Chest X-Ray 03/23/23 15:34 IMPRESSION: No acute findings. Laboratory Results WBC 5.25 10^3/uL (3.29-11.43) 03/23/23 15:51 RBC 3.50 10^6/uL (3.85-5.65) L 03/23/23 15:51 Hgb 9.70 g/dL (11.27-16.99) L 03/23/23 15:51 Hct 31.2 % (36-47) L 03/23/23 15:51 MCV 89.1 fl (85-98) 03/23/23 15:51 MCH 27.7 pg (27-33) 03/23/23 15:51 MCHC 31.1 g/dL (30-55) 03/23/23 15:51 RDW 14.4 % (12.1-15.1) 03/23/23 15:51 Plt Count 191 10^3/cmm (157-399) 03/23/23 15:51 MPV 8.9 fL (7.4-10.4) 03/23/23 15:51 Neut % (Auto) 74.0 % 03/23/23 15:51 Lymph % (Auto) 14.3 % 03/23/23 15:51 Will % (Auto) 10.9 % 03/23/23 15:51 Eos % (Auto) 0.6 % 03/23/23 15:51 Baso % (Auto) 0.2 % 03/23/23 15:51 Neut # (Auto) 3.89 10^3/uL (1.8-7.7) 03/23/23 15:51 Lymph # (Auto) 0.8 10^3/uL (0.8-4.8) 03/23/23 15:51 Will # (Auto) 0.6 10^3/uL (0.2-0.9) 03/23/23 15:51 Eos # (Auto) 0.0 10^3/uL (0.0-0.8) 03/23/23 15:51 Baso # (Auto) 0.0 10^3/uL (0.0-0.1) 03/23/23 15:51 Nucleated RBC % (auto) 0 % 03/23/23 15:51 Nucleated RBCs # 0.0 /100WBC 03/23/23 15:51 Sodium 134 mmol/L (136-145) L 03/23/23 15:51 Potassium 4.2 mmol/L (3.5-5.1) 03/23/23 15:51 Chloride 101 mmol/L (98-107) 03/23/23 15:51 Carbon Dioxide 19 mmol/L (22-29) L 03/23/23 15:51 Anion Gap 18.2 (5-19) 03/23/23 15:51 BUN 14 mg/dL (8-23) 03/23/23 15:51 Creatinine 1.0 mg/dL (0.5-0.9) H 03/23/23 15:51 GFR Calculation Not Reportable 03/23/23 15:51 Glucose 101 mg/dL (65-115) 03/23/23 15:51 Calculated Osmolality 279 mOsm/kg (285-295) L 03/23/23 15:51 Calcium 9.2 mg/dL (8.5-10.5) 03/23/23 15:51 Magnesium 1.5 mg/dL (1.7-2.3) L 03/23/23 15:51 Total Bilirubin 0.2 mg/dL (0.15-1.2) 03/23/23 15:51 AST 15 U/L (0-32) 03/23/23 15:51 ALT 9 U/L (0-33) 03/23/23 15:51 Alkaline Phosphatase 67 U/L (35-105) 03/23/23 15:51 Total Protein 6.7 g/dL (6.6-8.7) 03/23/23 15:51 Albumin 3.8 g/dL (3.5-5.2) 03/23/23 15:51 Globulin 2.9 g/dL (1.3-4.6) 03/23/23 15:51 Lipase 34 U/L (13-60) 03/23/23 15:51 Urine Color Yellow (Yellow) 03/23/23 17:37 Urine Appearance Sl hazy (CLEAR) A 03/23/23 17:37 Urine pH 6 (5-7) 03/23/23 17:37 Ur Specific [place] 1.015 (1.005-1.030) 03/23/23 17:37 Urine Protein 1+ (Negative) H 03/23/23 17:37 Urine Glucose (UA) Norm (Normal) 03/23/23 17:37 Urine Ketones Negative (Negative) 03/23/23 17:37 Urine Blood Neg (Negative) 03/23/23 17:37 Urine Nitrate Negative (Negative) 03/23/23 17:37 Urine Bilirubin Neg (Negative) 03/23/23 17:37 Urine Urobilinogen Norm mg/dL (Negative) 03/23/23 17:37 Ur Leukocyte Esterase 2+ (Negative) H 03/23/23 17:37 Urine RBC 0-4 /hpf (0-2) H 03/23/23 17:37 Urine WBC 5-10 /hpf (0-5) H 03/23/23 17:37 Ur Squamous Epith Cells 10-15 /hpf (0-5) H 03/23/23 17:37 Amorphous Sediment Not Reportable 03/23/23 17:37 Urine Bacteria 1+ /hpf (NONE) H 03/23/23 17:37 Hyaline Casts 0-4 /lpf H 03/23/23 17:37 Discharge Plan Discharge Patient Disposition: Home Clinical Impression: Generalized weakness Condition: Stable Prescriptions: No Action atorvastatin [Lipitor] 80 mg tablet 80 mg PO DAILY Breztri Aerosphere 160-9-4.8 mcg/actuation HFA aerosol inhaler 2 inh inhalation BID 30 Days Qty: 10.7 6RF ropinirole 2 mg tablet 2 mg PO BEDTIME duloxetine [Cymbalta] 60 mg capsule,delayed release(DR/EC) 60 mg PO DAILY Qty: 30 2RF Ingrezza 80 mg capsule 80 mg PO DAILY Qty: 30 2RF (DME) diabetic shoes with 3 pairs inserts See Rx Instructions .Route .MEDSUPPLY Qty: 1 0RF Rx Instructions: As directed HOME (DME) TLSO brace See Rx Instructions .Route .MEDSUPPLY Qty: 1 0RF Rx Instructions: As directed hydroxychloroquine 200 mg tablet 200 mg PO BID Qty: 60 0RF Hold Instructions: Resume on 03/26/23. hod until you see primary care, repeat cbc albuterol sulfate [Ventolin HFA] 90 mcg/actuation HFA aerosol inhaler 2 puff inhalation QID PRN (Reason: Shortness Of Breath) fenofibrate 54 mg tablet 54 mg PO DAILY levothyroxine 100 mcg tablet 100 mcg PO DAILY nitroglycerin [Nitrostat] 0.4 mg Tablet, Sublingual 0.4 mg SUBLINGUAL Q5M PRN (Reason: Chest Pain) Rx Instructions: do not exceed 3 doses per episode clopidogrel 75 mg tablet 75 mg PO DAILY gabapentin 800 mg tablet 800 mg PO TID losartan 100 mg tablet 100 mg PO DAILY Qty: 30 0RF hydralazine 50 mg tablet 50 mg PO BID Qty: 60 4RF sodium chloride 1,000 mg Tablet,Soluble 1,000 mg PO BID 7 Days Qty: 14 0RF metformin 500 mg tablet 500 mg PO DAILY Trelegy Ellipta 200-62.5-25 mcg blister with device 1 inh INHALATION DAILY amlodipine 10 mg tablet 10 mg PO QAM Discharge Orders: Discharge ED (Routine); Ordered 03/23/23 Ordered By: Devin Araujo Referrals: Brett Guallpa MD [Primary Care Provider] - 1 week Patient Instructions: Weakness (Generalized) Coding Level of Care Code ED Passenger Brakeman for Chg Fwd Documented by User: Devin Araujo DO 03/23/23 19:47 HPI - Weakness 2 General: Chief complaint: Weakness Stated complaint: weakness Time Seen by Provider: 03/23/23 15:40 PFSH ED 2 PFSH: Medical History Acute pain of left shoulder Altered mental status Rib fractures DAKSHA (acute kidney injury) Hypoxia Wheezing Weakness UTI (urinary tract infection) Diarrhea Hypomagnesemia Goals of care, counseling/discussion Hyponatremia Weakness Acute hyponatremia Fall Contusion of elbow, right Left rib fracture Closed left humeral fracture Acute renal insufficiency Acute hyponatremia Acute hyperkalemia Major depressive disorder, recurrent, in partial remission Alcohol use disorder in remission Cannabis use disorder, mild, in sustained remission, abuse Amphetamine use disorder, moderate, in sustained remission Tobacco use disorder, mild, in sustained remission Cervicalgia Trigeminal neuralgia Psychiatric care Rheumatoid arthritis SS-A antibody positive ZAY positive Dyspnea on exertion Parkinsonian tremor Chronic kidney disease (CKD) Incidental pulmonary nodule, > 3mm and < 8mm Lupus Chronic obstructive pulmonary disease Coronary artery disease Patient with stents Diabetes mellitus Hyperlipidemia Hypertension Urinary Incontinence Hypothyroidism Mass of right lung Follow-up of previous CAT scan Orofacial dyskinesia Tardive dyskinesia Nicotine dependence, cigarettes, in remission Bipolar disorder, in partial remission, most recent episode manic Surgical History History of colonoscopy with polypectomy (~04/20/20) 2017 History of coronary angioplasty with insertion of stent 2006: 2 stents. 2008: 2 stents. History of hand surgery Repair right thumb fracture History of back surgery (01/17/13) History of bilateral breast reduction surgery History of right cataract extraction History of bilateral tubal ligation History of dilation and curettage (~1982) History of bladder surgery (~1989) Vaginal Urethral sling with possible anchors . Performed by Dr. Salas at [facility] – [place], [place]. History of hemorrhoidectomy History of cholecystectomy History of vaginal hysterectomy Still has ovaries. Performed in [place], [place]. Performed due to bleeding. Family History Brother Heart disease Hypertension Hypercholesteremia Diabetes Sister Thyroid disease Social History Smoking and tobacco/nicotine status: former use of tobacco/nicotine Substance/Drug Use: never Lives independently: Yes Household members: none Marital status: Current occupational status: disabled Do you think of yourself as: Straight/Heterosexual Current gender identity: Female Course 2 Vital Signs: Vital signs: Vital Signs Temperature 98.1 F 03/23/23 15:31 Pulse Rate 92 03/23/23 19:39 Respiratory Rate 21 H 03/23/23 19:39 Blood Pressure 138/70 03/23/23 19:39 Pulse Oximetry 96 03/23/23 19:39 Oxygen Delivery Me thod Room Air 03/23/23 18:28 MDM - Weakness Medical Decision Making To patient comes to the ER just generally not feeling well with weakness and tremor. Patient had lab work done which showed CBC within hemoglobin 9.7 and hematocrit 31.2. CMP essentially benign. Chest x-ray showed no acute findings. Urine was a contaminated specimen. After fluids were finished patient stated she is feeling much better and is ready to go home. With no significant findings patient be discharged home with diagnosis of generalized weakness. Differential Diagnosis Unlikely acute myocardial infarction, anemia, hypoglycemia, hypothyroidism, rhabdomyolysis, sepsis or dehydration Medical Records I reviewed the patient's medical records. Lab Data I reviewed the patient's lab results. 03/23/23 15:51 03/23/23 15:51 Radiology Impressions Chest X-Ray 03/23/23 15:34 IMPRESSION: No acute findings. Laboratory Results WBC 5.25 10^3/uL (3.29-11.43) 03/23/23 15:51 RBC 3.50 10^6/uL (3.85-5.65) L 03/23/23 15:51 Hgb 9.70 g/dL (11.27-16.99) L 03/23/23 15:51 Hct 31.2 % (36-47) L 03/23/23 15:51 MCV 89.1 fl (85-98) 03/23/23 15:51 MCH 27.7 pg (27-33) 03/23/23 15:51 MCHC 31.1 g/dL (30-55) 03/23/23 15:51 RDW 14.4 % (12.1-15.1) 03/23/23 15:51 Plt Count 191 10^3/cmm (157-399) 03/23/23 15:51 MPV 8.9 fL (7.4-10.4) 03/23/23 15:51 Neut % (Auto) 74.0 % 03/23/23 15:51 Lymph % (Auto) 14.3 % 03/23/23 15:51 Will % (Auto) 10.9 % 03/23/23 15:51 Eos % (Auto) 0.6 % 03/23/23 15:51 Baso % (Auto) 0.2 % 03/23/23 15:51 Neut # (Auto) 3.89 10^3/uL (1.8-7.7) 03/23/23 15:51 Lymph # (Auto) 0.8 10^3/uL (0.8-4.8) 03/23/23 15:51 Will # (Auto) 0.6 10^3/uL (0.2-0.9) 03/23/23 15:51 Eos # (Auto) 0.0 10^3/uL (0.0-0.8) 03/23/23 15:51 Baso # (Auto) 0.0 10^3/uL (0.0-0.1) 03/23/23 15:51 Nucleated RBC % (auto) 0 % 03/23/23 15:51 Nucleated RBCs # 0.0 /100WBC 03/23/23 15:51 Sodium 134 mmol/L (136-145) L 03/23/23 15:51 Potassium 4.2 mmol/L (3.5-5.1) 03/23/23 15:51 Chloride 101 mmol/L (98-107) 03/23/23 15:51 Carbon Dioxide 19 mmol/L (22-29) L 03/23/23 15:51 Anion Gap 18.2 (5-19) 03/23/23 15:51 BUN 14 mg/dL (8-23) 03/23/23 15:51 Creatinine 1.0 mg/dL (0.5-0.9) H 03/23/23 15:51 GFR Calculation Not Reportable 03/23/23 15:51 Glucose 101 mg/dL (65-115) 03/23/23 15:51 Calculated Osmolality 279 mOsm/kg (285-295) L 03/23/23 15:51 Calcium 9.2 mg/dL (8.5-10.5) 03/23/23 15:51 Magnesium 1.5 mg/dL (1.7-2.3) L 03/23/23 15:51 Total Bilirubin 0.2 mg/dL (0.15-1.2) 03/23/23 15:51 AST 15 U/L (0-32) 03/23/23 15:51 ALT 9 U/L (0-33) 03/23/23 15:51 Alkaline Phosphatase 67 U/L (35-105) 03/23/23 15:51 Total Protein 6.7 g/dL (6.6-8.7) 03/23/23 15:51 Albumin 3.8 g/dL (3.5-5.2) 03/23/23 15:51 Globulin 2.9 g/dL (1.3-4.6) 03/23/23 15:51 Lipase 34 U/L (13-60) 03/23/23 15:51 Urine Color Yellow (Yellow) 03/23/23 17:37 Urine Appearance Sl hazy (CLEAR) A 03/23/23 17:37 Urine pH 6 (5-7) 03/23/23 17:37 Ur Specific [place] 1.015 (1.005-1.030) 03/23/23 17:37 Urine Protein 1+ (Negative) H 03/23/23 17:37 Urine Glucose (UA) Norm (Normal) 03/23/23 17:37 Urine Ketones Negative (Negative) 03/23/23 17:37 Urine Blood Neg (Negative) 03/23/23 17:37 Urine Nitrate Negative (Negative) 03/23/23 17:37 Urine Bilirubin Neg (Negative) 03/23/23 17:37 Urine Urobilinogen Norm mg/dL (Negative) 03/23/23 17:37 Ur Leukocyte Esterase 2+ (Negative) H 03/23/23 17:37 Urine RBC 0-4 /hpf (0-2) H 12 17:37 Urine WBC 5-10 /hpf (0-5) H 12 17:37 Ur Squamous Epith Cells 10-15 /hpf (0-5) H 03/23/23 17:37 Amorphous Sediment Not Reportable 03/23/23 17:37 Urine Bacteria 1+ /hpf (NONE) H 03/23/23 17:37 Hyaline Casts 0-4 /lpf H 03/23/23 17:37 All radiology interpretation(s) finalized by discharge Discharge Plan Discharge Patient Disposition: Home Clinical Impression: Generalized weakness Condition: Stable Prescriptions: No Action atorvastatin [Lipitor] 80 mg tablet 80 mg PO DAILY Breztri Aerosphere 160-9-4.8 mcg/actuation HFA aerosol inhaler 2 inh inhalation BID 30 Days Qty: 10.7 6RF ropinirole 2 mg tablet 2 mg PO BEDTIME duloxetine [Cymbalta] 60 mg capsule,delayed release(DR/EC) 60 mg PO DAILY Qty: 30 2RF Ingrezza 80 mg capsule 80 mg PO DAILY Qty: 30 2RF (DME) diabetic shoes with 3 pairs inserts See Rx Instructions .Route .MEDSUPPLY Qty: 1 0RF Rx Instructions: As directed HOME (DME) TLSO brace See Rx Instructions .Route .MEDSUPPLY Qty: 1 0RF Rx Instructions: As directed hydroxychloroquine 200 mg tablet 200 mg PO BID Qty: 60 0RF Hold Instructions: Resume on 03/26/23. hod until you see primary care, repeat cbc albuterol sulfate [Ventolin HFA] 90 mcg/actuation HFA aerosol inhaler 2 puff inhalation QID PRN (Reason: Shortness Of Breath) fenofibrate 54 mg tablet 54 mg PO DAILY levothyroxine 100 mcg tablet 100 mcg PO DAILY nitroglycerin [Nitrostat] 0.4 mg Tablet, Sublingual 0.4 mg SUBLINGUAL Q5M PRN (Reason: Chest Pain) Rx Instructions: do not exceed 3 doses per episode clopidogrel 75 mg tablet 75 mg PO DAILY gabapentin 800 mg tablet 800 mg PO TID losartan 100 mg tablet 100 mg PO DAILY Qty: 30 0RF hydralazine 50 mg tablet 50 mg PO BID Qty: 60 4RF sodium chloride 1,000 mg Tablet,Soluble 1,000 mg PO BID 7 Days Qty: 14 0RF metformin 500 mg tablet 500 mg PO DAILY Trelegy Ellipta 200-62.5-25 mcg blister with device 1 inh INHALATION DAILY amlodipine 10 mg tablet 10 mg PO QAM Discharge Orders: Discharge ED (Routine); Ordered 03/23/23 Ordered By: Devin Araujo Referrals: Brett Guallpa MD [Primary Care Provider] - 1 week Patient Instructions: Weakness (Generalized) Coding Level of Care Code ED Passenger Brakeman for Aicha Jean Baptiste
[2023-03-23 16:02] LABS: Basophils % 0.2 %; Eosinophils % 0.6 %; Hematocrit 31.2 % (36-47); Lymphocytes # 0.8 10^3/uL (0.8-4.8); Lymphocytes % 14.3 %; Mean Corpuscular HGB Conc 31.1 g/dL (30-55); Mean Corpuscular Hemoglobin 27.7 pg (27-33); Mean Corpuscular Volume 89.1 fl (85-98); Mean Platelet Volume 8.9 fL (7.4-10.4); Monocytes # 0.6 10^3/uL (0.2-0.9); Monocytes % 10.9 %; Neutrophils # 3.89 10^3/uL (1.8-7.7); Nucleated Red Blood Cells % 0 %; Platelet Count 191 10^3/cmm (157-399); Red Cell Distribution Width 14.4 % (12.1-15.1); White Blood Count 5.25 10^3/uL (3.29-11.43)
[2023-03-23 16:20] LABS: Alanine Aminotransferase 9 U/L (0-33); Albumin Level 3.8 g/dL (3.5-5.2); Alkaline Phosphatase 67 U/L (35-105); Anion Gap 18.2 (5-19); Aspartate Amino Transferase 15 U/L (0-32); Blood Urea Nitrogen 14 mg/dL (8-23); Calcium 9.2 mg/dL (8.5-10.5); Carbon Dioxide 19 mmol/L (22-29); Chloride 101 mmol/L (98-107); Globulin 2.9 g/dL (1.3-4.6); Glucose 101 mg/dL (65-115); Lipase 34 U/L (13-60); Magnesium 1.5 mg/dL (1.7-2.3); Osmolality Calculated 279 mOsm/kg (285-295); Potassium 4.2 mmol/L (3.5-5.1); Sodium 134 mmol/L (136-145); Total Bilirubin 0.2 mg/dL (0.15-1.2); Total Protein 6.7 g/dL (6.6-8.7)
--- NOTE | 2023-03-23 16:32 | PC.PHAR ---
PT STATES LEVAQUIN 500 WAS PUT ON HOLD. REMOVED FROM MED LIST. PT SHOULD NO LONGER BE TAKING CARBAMAZEPINE 200 MG, HYDROCHLOROTHIAZIDE 25 MG, OR MELOXICAM 15 MG. THEY WERE DC'D AT DISCHARGE LAST WEEK. REMOVED FROM LIST. 03/23/23
[2023-03-23 16:36] VITALS: BP 130/69; PULSE 90; O2SAT 96
[2023-03-23 17:36] VITALS: BP 137/70; PULSE 92; O2SAT 96
[2023-03-23] MEDS: sodium chloride 0.9% 1,000 ML 999 ML IV (18:08)
[2023-03-23 18:26] LABS: Bilirubin Urine Neg (Negative); Blood Urine Neg (Negative); Glucose Urine UA Norm (Normal); Ketones Urine Negative (Negative); Nitrate Urine Negative (Negative); Protein Urine 1+ (Negative); Specific Gravity, Urine 1.015 (1.005-1.030); Urine Appearance SL Hazy (CLEAR); Urine Color Yellow (Yellow); Urobilinogen Urine Norm (Negative); pH Urine 6 (5-7)
[2023-03-23 18:27] LABS: Add Urine Culture? No; Add Urine Microscopic? YES; Bacteria Urine 1+ /hpf; Hyaline Casts Urine 0-4 /lpf; Leukocyte Esterase Urine 2+ (Negative); RBC Urine 0-4 /hpf (0-2)
[2023-03-23 18:28] VITALS: BP 138/70; PULSE 94; O2SAT 97
[2023-03-23 19:39] VITALS: BP 138/70; PULSE 92; RESP 21; O2SAT 96
== END 2023-03-23 20:21 | disposition home or self-care (01) ==
PROVIDERS: Emergency Medicine; Emergency Provider Family Medicine; PCP Family Medicine
DX: R53.1 Weakness (principal)
CPT/HCPCS: 36415; 71045; 80053; 81001; 83690; 83735; 85025; 99285; J7030

== ENCOUNTER → 2023-05-15 14:53 | Outpatient (BNVA) | payer MEDICARE, SELFPAY | PROVIDERS: PCP Family Medicine; Visit Provider Specialist | DX: G20.B1 Parkinson's disease with dyskinesia, without mention of fluctuations (principal); G24.01 Drug induced subacute dyskinesia | CPT/HCPCS: 99214 ==

== ENCOUNTER 2023-05-31 15:21 | Outpatient (CLI) | payer MEDICARE, SELFPAY ==
--- NOTE | 2023-05-31 15:26 | CTR_ITS ---
PROCEDURE INFORMATION: Exam: CT Chest With Contrast; Diagnostic Exam date and time: 05/31/2023 4:21 PM Age: 77 years old Clinical indication: Condition or disease; Other: Pulmonary nodule; Additional info: Pulmonary nodule, this needs to be done before her appt with Dr. James 06/25/23 TECHNIQUE: Imaging protocol: Diagnostic computed tomography of the chest with contrast. Radiation optimization: All CT scans at this facility use at least one of these dose optimization techniques: automated exposure control; mA and/or kV adjustment per patient size (includes targeted exams where dose is matched to clinical indication); or iterative reconstruction. Contrast material: OMNI 350; Contrast volume: 95 ml; Contrast route: INTRAVENOUS (IV); COMPARISON: CT angio chest PE protcl [id number] 09/07/2022 8:36 AM RADIATION DOSE METRICS: Total DLP (mGy-cm): 225.38 FINDINGS: Lungs: Stable size of 9 mm left apical nodule (series 6, image 28), 9 mm on the prior study when measured in a similar manner. Stable 4 mm left lower lobe nodule (series 6, image 28) and 4 mm left upper lobe nodule (series 7, image 22). No new pulmonary nodules. No focal consolidation. Pleural spaces: Unremarkable. No pneumothorax. No pleural effusion. Heart: Unremarkable. No cardiomegaly. No pericardial effusion. Coronary arteries: Severe coronary artery calcification. Lymph nodes: Unremarkable. No enlarged lymph nodes. Vasculature: Moderate atherosclerotic calcifications. Gallbladder and bile ducts: Status post cholecystectomy. Kidneys and ureters: Partially visualized bilateral renal cysts and subcentimeter hypoattenuating lesions. Bones/joints: Redemonstrated healed left-sided rib fractures and chronic L1 compression fracture. No acute fractures. Soft tissues: Unremarkable. Other findings: Severe apical predominant emphysema. CT/CT chest w con* [id number] IMPRESSION: Stable spiculated left upper lobe nodule. No new pulmonary nodules. COMMENTS: Consistent with the [employer]'s Incidental Findings Committee white paper (J Am Estrella Radiol 2018): Any incidental renal lesion less than 1 cm or classified as too small to characterize, or any incidental cystic renal lesion characterized as simple-appearing, is likely benign. No follow-up imaging is recommended for these lesions per consensus recommendations based on imaging criteria.
[2023-05-31 16:19] LABS: Blood Urea Nitrogen 10 mg/dL (8-23)
[2023-05-31] MEDS: iohexol 350 mg/mL 500 mL Btl (per mL) IV (16:29)
== END 2023-05-31 15:22 | disposition home or self-care (01) ==
LOC: RAD 15:21
PROVIDERS: PCP Family Medicine; Visit Provider Thoracic Surgery (Cardiothoracic Vascular Surgery)
DX: R91.8 Other nonspecific abnormal finding of lung field (principal); E03.9 Hypothyroidism, unspecified; I10 Essential (primary) hypertension; E11.9 Type 2 diabetes mellitus without complications; Z13.6 Encounter for screening for cardiovascular disorders; J43.8 Other emphysema
CPT/HCPCS: 71260; 80053; 80061; 82043; 82565; 83036; 84443; 84520; 85025; Q9967

== ENCOUNTER → 2023-06-12 08:30 | Outpatient (BNVA) | payer MEDICARE, SELFPAY | PROVIDERS: PCP Family Medicine; Visit Provider Internal Medicine Rheumatology | DX: Z79.899 Other long term (current) drug therapy (principal); R76.8 Other specified abnormal immunological findings in serum; M06.9 Rheumatoid arthritis, unspecified; M54.2 Cervicalgia; M05.79 Rheumatoid arthritis with rheumatoid factor of multiple sites without organ or systems involvement; Z71.85 Encounter for immunization safety counseling | CPT/HCPCS: 99214 ==

== ENCOUNTER → 2023-06-15 14:34 | Outpatient (BNVA) | payer MEDICARE, SELFPAY | PROVIDERS: PCP Family Medicine; Visit Provider Specialist | DX: G20.B1 Parkinson's disease with dyskinesia, without mention of fluctuations (principal); G24.4 Idiopathic orofacial dystonia | CPT/HCPCS: 99213 ==

== ENCOUNTER 2023-06-21 09:51 | Outpatient (CLI) | payer MEDICARE, SELFPAY ==
--- NOTE | 2023-06-21 11:40 | OP.DCCON ---
Reason for Visit: Diabetes mellitus Person Interviewed: Patient Height: 5 ft 5 in Weight: 130 lb BMI: 21.7 kg/m2 Weight History: Pt reported losing 50 lbs in past 6 mos d/t no appetite. She didn't want to talk to her about her weight loss. Concerns and Goals: Elyssa said she can't cook because of her COPD and she only has a microwave and she has no teeth and she can only have 32 ounces fluid/day. Physical Activity: While walking to the office Elyssa felt slightly dizzy. GI Symptoms: Constipation (Elyssa wanted me to suggest medication and I said she would have to ask her provider.) Feeding Issues: Edentulous Other Feeding Issues: Elyssa only has access to a microwave and doesn't like cooking. She also claimed to have a 32 ounce fluid restriction. As we talked I discovered she is also picky with her food choices. And because she doesn't have teeth she only eats soft foods. Food Allergies and Sensitivities: Elyssa doesn't think she has any allergies or sensitivities. 24 Hour Recall: Breakfast Time: 5 TBS Cottage Cheese and protein shake Snack Time: Lunch Time: 3 TBS cottage cheese, 4 pieces processed liver, 4 crackers Snack Time: Dinner Time: 5 TBS cottage cheese and protein shake Snack Time: Sips on PowerAide all day long. Soda vs Milk vs Water: Elyssa likes milk but doesn't want to overdo her fluid intake. Additional Comments: Elyssa mentioned she has a friend who buys her groceries and helps her. When I met him he said they had been 3 times to which Elyssa replied, we are better friends then and . Recommendations: Assessment: Because of miscommunication, Elyssa had to wait 20 minutes before seeing me. I apologized profusely. When we got to the office she stated she wanted ideas of what to eat and that she was tired of people saying she is too thin even though she knows she is. So we focused on other food options that fit her criteria of soft, cooked in a microwave, not too much fluid and were things she liked. Diagnosis: Severe PCM r/t Pt stated she had no appetite AEB Pt reported losing 50lbs in 6 mos and currently does not eat very much per her 24 hour recall. Intervention: Elyssa wanted ideas for meals and snacks. We brainstormed, and filtering through her criteria of soft, cooked in a microwave, not too much fluid and high prot/kcal. We came up with quite a few ideas that she was happy with including: adding peanut butter, drained fruit cups, peanut butter powder to her cottage cheese, mixing peanut butter powder to her protein shakes, looking into Mac n Cheese, rice pouches and soups she could microwave, adding tuna fish to rice or mac n cheese, adding can of beans to her rice, putting sour cream or cottage cheese on top of beans n rice. Monitoring and evaluation: Elyssa asked about a f/u appointment. I told her the provider would need to send another order. At the bottom of the take home sheet where we wrote down the ideas is my phone and email which I pointed out to her for f/u questions. Coding Level of Care Code Nutrition/Individ/Init 30 Min Time Spent (min) 30
== END 2023-06-21 09:52 | disposition home or self-care (01) ==
PROVIDERS: PCP Family Medicine; Visit Provider Family Medicine
DX: Z71.3 Dietary counseling and surveillance (principal); E11.9 Type 2 diabetes mellitus without complications; Z68.21 Body mass index [BMI] 21.0-21.9, adult; J44.9 Chronic obstructive pulmonary disease, unspecified
CPT/HCPCS: 97802

== ENCOUNTER → 2023-06-25 12:50 | Outpatient (BNVA) | payer MEDICARE, SELFPAY | PROVIDERS: PCP Family Medicine; Visit Provider Thoracic Surgery (Cardiothoracic Vascular Surgery) | DX: R91.1 Solitary pulmonary nodule (principal); R55 Syncope and collapse; I25.10 Atherosclerotic heart disease of native coronary artery without angina pectoris; F17.210 Nicotine dependence, cigarettes, uncomplicated; I12.9 Hypertensive chronic kidney disease with stage 1 through stage 4 chronic kidney disease, or unspecified chronic kidney disease; N18.9 Chronic kidney disease, unspecified | CPT/HCPCS: 99213 ==

== ENCOUNTER 2023-07-04 13:53 | Outpatient (CLI) | payer MEDICARE, SELFPAY ==
--- NOTE | 2023-07-04 14:30 | USCV_ITS ---
Elyssa Daniels Age: 77 Gender: F : 1945 Exam Date: 07/04/2023 14:04 Ordering Phys: Yoan Onofre MD (Andy) ([email or web address] [place] Technologist: [place] [facility] [place]: [place]ope Risk Factors: Previous Vascular Surgery: Right Brachial BP: / Left Brachial BP: / Right Left Velocity (cm/s) Spectral Plaque Velocity (cm/s) Spectral Plaque Syst/Diast Broadening Syst/Diast Broadening 67.30/ 13.00 Prox CCA 64.00 / 16.20 68.70/ 14.50 Mid CCA 47.00 / 12.10 70.10/ 19.00 Distal CCA 47.10 / 17.60 119.30/19.30 Prox ICA 77.50 / 30.10 86.40/ 23.60 Mid ICA 111.60/ 35.50 76.90/ 23.10 Distal ICA 106.20/ 25.80 124.20 ECA 165.70 1.70 ICA/CCA 2.40 Antegrade Vertebral Antegrade 59.00/ 12.40 cm/s 43.70/ 10.80 cm/s Bi Subclavian Bi 71.50 134.6 0 CONCLUSIONS Right ICA stenosis <50%. Moderate atheromatous plaque right carotid bulb/ICA. Left ICA stenosis <50%. Moderate atheromatous plaque left carotid bulb/ICA. Intimal thickening in the common carotid arteries and internal carotid arteries bilaterally. Normal antegrade Doppler flow noted in the right vertebral artery. Normal antegrade Doppler flow noted in the left vertebral artery. Bhargav Mcmanus MD (Electronically Signed) Final Date: 05 July 2023 09:04 S
== END 2023-07-04 13:54 | disposition home or self-care (01) ==
LOC: RAD 13:53
PROVIDERS: PCP Family Medicine; Visit Provider Thoracic Surgery (Cardiothoracic Vascular Surgery)
DX: I65.23 Occlusion and stenosis of bilateral carotid arteries (principal); R55 Syncope and collapse
CPT/HCPCS: 93880

== ENCOUNTER → 2023-07-12 15:21 | Outpatient (BNVA) | payer MEDICARE, SELFPAY | PROVIDERS: PCP Family Medicine; Visit Provider Specialist | DX: G24.4 Idiopathic orofacial dystonia (principal); G20.B1 Parkinson's disease with dyskinesia, without mention of fluctuations | CPT/HCPCS: 64612; 99212; J0585 ==

== ENCOUNTER → 2023-08-24 12:01 | Outpatient (BNVA) | payer MEDICARE, SELFPAY | PROVIDERS: PCP Family Medicine; Visit Provider Specialist | DX: G50.0 Trigeminal neuralgia (principal); G24.4 Idiopathic orofacial dystonia; G20.B1 Parkinson's disease with dyskinesia, without mention of fluctuations; F31.73 Bipolar disorder, in partial remission, most recent episode manic | CPT/HCPCS: 99214 ==

== ENCOUNTER → 2023-08-28 10:00 | Outpatient (BNVA) | payer MEDICARE, SELFPAY | PROVIDERS: PCP Family Medicine; Visit Provider Family Medicine | DX: Z13.6 Encounter for screening for cardiovascular disorders (principal); E11.9 Type 2 diabetes mellitus without complications | CPT/HCPCS: 80053; 83036 ==

== ENCOUNTER 2023-09-01 07:54 | Emergency (ER) | payer MEDICARE, SELFPAY ==
[2023-09-01 08:06] VITALS: BP 173/80; PULSE 80; RESP 14; TEMP 36.5; O2SAT 97; BMI 23.1
[2023-09-01 08:15] VITALS: PULSE 82; RESP 14; O2SAT 97
[2023-09-01 08:38] LABS: Glucose Urine UA Norm (Normal); Ketones Urine Negative (Negative); Protein Urine 2+ (Negative); Urine Appearance SL Hazy (CLEAR); Urine Color Yellow (Yellow); pH Urine 6 (5-7)
[2023-09-01 08:39] LABS: Add Urine Culture? Yes; Add Urine Microscopic? YES; Bacteria Urine 2+ /hpf; Bilirubin Urine Neg (Negative); Blood Urine Neg (Negative); Leukocyte Esterase Urine 2+ (Negative); Nitrate Urine Negative (Negative); Squamous Epithelial Cell Urine 0-4 /hpf (0-5); Urobilinogen Urine Norm (Negative); WBC Urine 15-25 /hpf (0-5)
[2023-09-01 08:45] LABS: Basophils % 1.4 %; Eosinophils # 0.1 10^3/uL (0.0-0.8); Eosinophils % 2.9 %; Hematocrit 39.4 % (36-47); Lymphocytes # 0.8 10^3/uL (0.8-4.8); Lymphocytes % 27.2 %; Mean Corpuscular HGB Conc 31.2 g/dL (30-55); Mean Corpuscular Volume 92.9 fl (85-98); Mean Platelet Volume 9.6 fL (7.4-10.4); Monocytes # 0.4 10^3/uL (0.2-0.9); Monocytes % 13.8 %; Neutrophils # 1.51 10^3/uL (1.8-7.7); Neutrophils % 54.7 %; Nucleated Red Blood Cells % 0 %; Platelet Count 193 10^3/cmm (157-399); Red Blood Count 4.24 10^6/uL (3.85-5.65); Red Cell Distribution Width 14.9 % (12.1-15.1); White Blood Count 2.76 10^3/uL (3.29-11.43)
--- NOTE | 2023-09-01 08:48 | ED_ITS ---
HPI - Female Genitourinary 2 General: Chief complaint: Urogenital-Female Stated complaint: frequent urination, burning sensation Time Seen by Provider: 09/01/23 08:03 Source: patient Mode of arrival: ambulatory History of Present Illness: 77-year-old female presents emergency ro om planing of dysuria urgency or frequency the last couple of days no fever sweats chills some low back pain but no flank pain no hematuria. No recent treatments for bladder infections. MD elicited complaint: dysuria and UTI Onset (ago): day(s) Severity: mild Consistency: constant Exacerbating factors: urination Relieving factors: none Associated symptoms: Deny abdominal pain, short of breath, fevers/chills, headache(s), nausea, rash, seizures, syncope, vaginal bleeding, vaginal discharge or weakness Patient : No Review of Systems 2 Const: Denies: fever(s) or chills Card: Denies: syncope Resp: Denies: dyspnea GI: Denies: abdominal pain, nausea or vomiting : Reports: dysuria, urinary frequency and urinary urgency; Denies: vaginal discharge Musc: Denies: neck pain or back pain Skin/Breast: Denies: rash Neuro: Denies: headache(s) PFSH ED 2 PFSH: Medical History Alcohol use disorder in remission Cannabis use disorder, mild, in sustained remission, abuse Amphetamine use disorder, moderate, in sustained remission Coronary artery disease Patient with stents Immunization counseling High risk medication use Seropositive rheumatoid arthritis of multiple sites SS-A antibody positive Diabetes mellitus Hyperlipidemia Hypertension Hypothyroidism Acute pain of left shoulder Altered mental status Rib fractures DAKSHA (acute kidney injury) Hypoxia Wheezing Weakness UTI (urinary tract infection) Diarrhea Hypomagnesemia Goals of care, counseling/discussion Hyponatremia Weakness Acute hyponatremia Fall Contusion of elbow, right Left rib fracture Closed left humeral fracture Acute renal insufficiency Acute hyponatremia Acute hyperkalemia Major depressive disorder, recurrent, in partial remission Tobacco use disorder, mild, in sustained remission Cervicalgia Trigeminal neuralgia Psychiatric care Rheumatoid arthritis ZAY positive Dyspnea on exertion Parkinsonian tremor Chronic kidney disease (CKD) Incidental pulmonary nodule, > 3mm and < 8mm Lupus Chronic obstructive pulmonary disease Urinary Incontinence Mass of right lung Follow-up of previous CAT scan Orofacial dyskinesia Tardive dyskinesia Nicotine dependence, cigarettes, in remission Bipolar disorder, in partial remission, most recent episode manic Surgical History History of colonoscopy with polypectomy (~04/20/20) 2017 History of coronary angioplasty with insertion of stent 2006: 2 stents. 2008: 2 stents. History of hand surgery Repair right thumb fracture History of back surgery (01/17/13) History of bilateral breast reduction surgery History of right cataract extraction History of bilateral tubal ligation History of dilation and curettage (~1982) History of bladder surgery (~1989) Vaginal Urethral sling with possible anchors . Performed by Dr. Salas at [facility] [place]. History of hemorrhoidectomy History of cholecystectomy History of vaginal hysterectomy Still has ovaries. Performed in [place], [place]. Performed due to bleeding. Family History Brother Heart disease Hypertension Hypercholesteremia Diabetes Sister Thyroid disease Social History Smoking and tobacco/nicotine status: current every day tobacco/nicotine user cigarettes Packs smoked per day: 1 Years cigarettes smoked: 50 Substance/Drug Use: never Lives independently: Yes Household members: none Marital status: Current occupational status: disabled Do you think of yourself as: Straight/Heterosexual Current gender identity: Female Physical Exam 2 Const: COMMON NORMALS: no acute distress GENERAL APPEARANCE: cooperative and comfortable ORIENTATION/CONSCIOUSNESS: Yes awake, Yes oriented to person, Yes oriented to place and Yes oriented to time HENMT: COMMON NORMALS: normocephalic, atraumatic and hearing grossly normal bilaterally HEAD & SCALP: normocephalic and atraumatic Resp: COMMON NORMALS: normal respiratory effort, No retractions, No use of accessory muscles and clear to auscultation bilaterally AUSCULTATION: clear to auscultation bilaterally Cardio: COMMON NORMALS: regular rate, regular rhythm and No murmurs present (Cardio) RATE: regular rate RHYTHM: regular rhythm GI: COMMON NORMALS: Soft to palpation and No hepatosplenomegaly present A USCULTATION: Yes normoactive bowel sounds PALPATION: Yes Soft to palpation, No Tenderness to palpation present (GI), No Guarding due to palpation present (GI) and Yes No hepatosplenomegaly present : SPECULUM EXAM - VAGINA: No vaginal bleeding OB/EXTERNAL & SPECULUM: No vaginal bleeding Extremity: COMMON NORMALS: normal to inspection, capillary refill normal, no clubbing, cyanosis or edema, no calf tenderness and no pedal edema Neuro: SENSORIUM/ORIENTATION: Yes oriented to person, Yes oriented to place and Yes oriented to time Skin: COMMON NORMALS: no rashes or lesions noted GENERAL SKIN EXAM: no rashes or lesions noted Course 2 Vital Signs: Vital signs: Vital Signs Temperature 97.7 F 09/01/23 08:06 Pulse Rate 82 09/01/23 08:15 Respiratory Rate 14 09/01/23 08:15 Blood Pressure 173/80 09/01/23 08:06 Pulse Oximetry 97 09/01/23 08:15 Oxygen Delivery Me thod Room Air 09/01/23 08:15 MDM - Female Medical Decision Making UA shows cystitis discharge home allergic to cephalosporins we will give her Cipro 250 twice daily x 7 days follow-up as needed Medical Records I reviewed the patient's medical records. Lab Data I reviewed the patient's lab results. 09/01/23 08:28 09/01/23 08:28 Laboratory Results WBC 2.76 10^3/uL (3.29-11.43) L 09/01/23 08:28 RBC 4.24 10^6/uL (3.85-5.65) 09/01/23 08:28 Hgb 12.30 g/dL (11.27-16.99) 09/01/23 08:28 Hct 39.4 % (36-47) 09/01/23 08:28 MCV 92.9 fl (85-98) 09/01/23 08:28 MCH 29.0 pg (27-33) 09/01/23 08:28 MCHC 31.2 g/dL (30-55) 09/01/23 08:28 RDW 14.9 % (12.1-15.1) 09/01/23 08:28 Plt Count 193 10^3/cmm (157-399) 09/01/23 08:28 MPV 9.6 fL (7.4-10.4) 09/01/23 08:28 Neut % (Auto) 54.7 % 09/01/23 08:28 Lymph % (Auto) 27.2 % 09/01/23 08:28 [place] % (Auto) 13.8 % 09/01/23 08:28 Eos % (Auto) 2.9 % 09/01/23 08:28 Baso % (Auto) 1.4 % 09/01/23 08:28 Neut # (Auto) 1.51 10^3/uL (1.8-7.7) L 09/01/23 08:28 Lymph # (Auto) 0.8 10^3/uL (0.8-4.8) 09/01/23 08:28 [place] # (Auto) 0.4 10^3/uL (0.2-0.9) 09/01/23 08:28 Eos # (Auto) 0.1 10^3/uL (0.0-0.8) 09/01/23 08: Baso # (Auto) 0.0 10^3/uL (0.0-0.1) 09/01/23 08:28 Nucleated RBC % (auto) 0 % 09/01/23 08:28 Nucleated RBCs # 0.0 /100WBC 09/01/23 08:28 Urine Color Yellow (Yellow) 09/01/23 08:05 Urine Appearance Sl hazy (CLEAR) A 09/01/23 08:05 Urine pH 6 (5-7) 09/01/23 08:05 Ur Specific [place] 1.010 (1.005-1.030) 09/01/23 08:05 Urine Protein 2+ (Negative) H 09/01/23 08:05 Urine Glucose (UA) Norm (Normal) 09/01/23 08:05 Urine Ketones Negative (Negative) 09/01/23 08:05 Urine Blood Neg (Negative) 09/01/23 08:05 Urine Nitrate Negative (Negative) 09/01/23 08:05 Urine Bilirubin Neg (Negative) 09/01/23 08:05 Urine Urobilinogen Norm mg/dL (Negative) 09/01/23 08:05 Ur Leukocyte Esterase 2+ (Negative) H 09/01/23 08:05 Urine RBC None /hpf (0-2) 09/01/23 08:05 Urine WBC 15-25 /hpf (0-5) H 09/01/23 08:05 Ur Squamous Epith Cells 0-4 /hpf (0-5) H 09/01/23 08:05 Amorphous Sediment Not Reportable 09/01/23 08:05 Urine Bacteria 2+ /hpf (NONE) H 09/01/23 08:05 No radiology studies performed this visit Discharge Plan Discharge Patient Disposition: Home Clinical Impression: Cystitis Condition: Stable Prescriptions: New Cipro 250 mg tablet 250 mg PO BID Qty: 14 0RF No Action atorvastatin [Lipitor] 80 mg tablet 80 mg PO DAILY Breztri Aerosphere 160-9-4.8 mcg/actuation HFA aerosol inhaler 2 inh inhalation BID 30 Days Qty: 10.7 6RF ropinirole 2 mg tablet 2 mg PO BEDTIME duloxetine [Cymbalta] 60 mg capsule,delayed release(DR/EC) 60 mg PO DAILY Qty: 30 2RF (DME) diabetic shoes with 3 pairs inserts See Rx Instructions .Route .MEDSUPPLY Qty: 1 0RF Rx Instructions: As directed HOME (DME) TLSO brace See Rx Instructions .Route .MEDSUPPLY Qty: 1 0RF Rx Instructions: As directed prednisone 5 mg tablet See Rx Instructions PO .COMPLEX PRN (Reason: joint pain flare) Qty: 30 1RF Rx Instructions: take 1-2 tabs daily for 3-7 days prn joint pain flare orally PRN; leflunomide 10 mg tablet 10 mg PO DAILY Qty: 30 3RF hydroxyzine HCl 25 mg tablet 25 mg PO .HS PRN (Reason: sleep) Qty: 30 2RF lamotrigine [Lamictal] 100 mg tablet 100 mg PO BID Qty: 60 5RF Rx Instructions: 1/2 tablet twice a day for 2 weeks then 1 tablet twice a day carbidopa-levodopa 25-100 mg tablet 2 tab PO TID Qty: 180 5RF Rx Instructions: 2 with breakfast and lunch, 1 with dinner Botox 100 unit recon soln 100 unit IM Q90D 90 Days Qty: 1 0RF propranolol 20 mg tablet 20 mg PO BID Qty: 60 2RF duloxetine [Cymbalta] 30 mg capsule,delayed release(DR/EC) 30 mg PO DAILY Qty: 30 2RF Ingrezza 80 mg capsule 80 mg PO DAILY Qty: 30 2RF metformin 500 mg tablet 500 mg PO DAILY Qty: 90 0RF albuterol sulfate [Ventolin HFA] 90 mcg/actuation HFA aerosol inhaler 2 puff inhalation QID PRN (Reason: Shortness Of Breath) fenofibrate 54 mg tablet 54 mg PO DAILY levothyroxine 100 mcg tablet 100 mcg PO DAILY nitroglycerin [Nitrostat] 0.4 mg Tablet, Sublingual 0.4 mg SUBLINGUAL Q5M PRN (Reason: Chest Pain) Rx Instructions: do not exceed 3 doses per episode clopidogrel 75 mg tablet 75 mg PO DAILY gabapentin 800 mg tablet 800 mg PO TID losartan 100 mg tablet 100 mg PO DAILY Qty: 30 0RF hydralazine 50 mg tablet 50 mg PO BID Qty: 60 4RF Trelegy Ellipta 200-62.5-25 mcg blister with device 1 inh INHALATION DAILY amlodipine 10 mg tablet 10 mg PO QAM Discharge Orders: Discharge ED (Routine); Ordered 09/01/23 Ordered By: Jovanni Mast Referrals: Katina Monreal DO [Primary Care Provider] - Discharge Diet: Usual diet Discharge Activity: Increase activity as tolerated Patient Instructions: Urinary Tract Infection in Women (ED), Opioid Safety, Pain Management Activity Restrictions/Additional Instructions: Thank you for choosing [facility] for your healthcare needs today. Please realize this is an emergency room and that we are providing you with a medical screening exam and this may not be complete and all inclusive of all the testing and or work up that you may need to determine your ailment or severity of your illness. It is very important that you follow up as instructed or that you return to the Emergency Department should you have concerns or if your condition changes or worsens in any way. Coding Level of Care Code ED Profile Stitching Machine Operator for Aicha Jean Baptiste
[2023-09-01 09:00] VITALS: BP 180/86; PULSE 81; RESP 15; O2SAT 94
[2023-09-01 09:06] LABS: Anion Gap 14.6 (5-19); Blood Urea Nitrogen 23 mg/dL (8-23); Calcium 8.7 mg/dL (8.5-10.5); Carbon Dioxide 25 mmol/L (22-29); Chloride 101 mmol/L (98-107); Creatinine Clr Calc Pharmacy 49.8831; Glucose 192 mg/dL (65-115); Osmolality Calculated 291 mOsm/kg (285-295); Potassium 4.6 mmol/L (3.5-5.1); Sodium 136 mmol/L (136-145)
[2023-09-01 09:09] VITALS: BP 180/86; PULSE 81; RESP 15; O2SAT 94
== END 2023-09-01 09:11 | disposition home or self-care (01) ==
PROVIDERS: Emergency Provider Family Medicine; PCP Family Medicine
DX: N30.90 Cystitis, unspecified without hematuria (principal); F17.210 Nicotine dependence, cigarettes, uncomplicated
CPT/HCPCS: 36415; 80048; 81001; 85025; 87077; 87086; 87186; 99283

== ENCOUNTER 2023-09-09 11:14 | Emergency (ER) | payer MEDICARE, SELFPAY ==
[2023-09-09 11:28] VITALS: BP 131/69; PULSE 119; RESP 18; TEMP 36.8; O2SAT 95
--- NOTE | 2023-09-09 12:01 | W.ED.SKABFB ---
HPI - Skin/Abscess/Foreign Bdy General: Chief complaint: Skin/Abscess/Foreign Body Stated complaint: rash Time Seen by Provider: 09/09/23 11:49 Source: patient Mode of arrival: ambulatory Limitations: no limitations History of Present Illness: Patient when she started a medicine about 4 to 5 days ago, lamotrigine. She started to break out in a rash after a few days and she stopped taking the medicine yesterday. Patient reports severe itching and rash all over her body. On examination she does appear to have hives and pruritus. Review of Systems General: Reports: 10 or more systems reviewed and unremarkable except in HPI and below PFSH ED PFSH: Medical History Alcohol use disorder in remission Cannabis use disorder, mild, in sustained remission, abuse Amphetamine use disorder, moderate, in sustained remission Coronary artery disease Patient with stents Immunization counseling High risk medication use Seropositive rheumatoid arthritis of multiple sites SS-A antibody positive Diabetes mellitus Hyperlipidemia Hypertension Hypothyroidism Acute pain of left shoulder Altered mental status Rib fractures DAKSHA (acute kidney injury) Hypoxia Wheezing Weakness UTI (urinary tract infection) Diarrhea Hypomagnesemia Goals of care, counseling/discussion Hyponatremia Weakness Acute hyponatremia Fall Contusion of elbow, right Left rib fracture Closed left humeral fracture Acute renal insufficiency Acute hyponatremia Acute hyperkalemia Major depressive disorder, recurrent, in partial remission Tobacco use disorder, mild, in sustained remission Cervicalgia Trigeminal neuralgia Psychiatric care Rheumatoid arthritis ZAY positive Dyspnea on exertion Parkinsonian tremor Chronic kidney disease (CKD) Incidental pulmonary nodule, > 3mm and < 8mm Lupus Chronic obstructive pulmonary disease Urinary Incontinence Mass of right lung Follow-up of previous CAT scan Orofacial dyskinesia Tardive dyskinesia Nicotine dependence, cigarettes, in remission Bipolar disorder, in partial remission, most recent episode manic Surgical History History of colonoscopy with polypectomy (~04/20/20) 2017 History of coronary angioplasty with insertion of stent 2006: 2 stents. 2008: 2 stents. History of hand surgery Repair right thumb fracture History of back surgery (01/17/13) History of bilateral breast reduction surgery History of right cataract extraction History of bilateral tubal ligation History of dilation and curettage (~1982) History of bladder surgery (~1989) Vaginal Urethral sling with possible anchors . [place] Salas [place] [facility] [facility] [place] History of hemorrhoidectomy History of cholecystectomy History of vaginal hysterectomy Still has ovaries. Performed in [place], [place]. Performed due to bleeding. Family History Brother Heart disease Hypertension Hypercholesteremia Diabetes Sister Thyroid disease Social History Smoking and tobacco/nicotine status: current every day tobacco/nicotine user cigarettes Packs smoked per day: 1 Years cigarettes smoked: 50 Substance/Drug Use: never Lives independently: Yes Household members: none Marital status: Current occupational status: disabled Do you think of yourself as: Straight/Heterosexual Current gender identity: Female Physical Exam Const: COMMON NORMALS: no acute distress, average body habitus, patient oriented x3, healthy appearing, alert and well nourished GENERAL APPEARANCE: well kempt and well developed HENMT: COMMON NORMALS: normocephalic, atraumatic, external ears normal and moist oral mucous membranes HEAD & SCALP: normocephalic and atraumatic EXTERNAL EAR: Yes external ears normal Eye: COMMON NORMALS: Equal, round and reactive pupils present, EOMs intact bilaterally and conjunctivae normal CONJUNCTIVA: Yes conjunctivae normal PUPIL: Yes Equal, round and reactive pupils present Neck/C-Spine: COMMON NORMALS: full ROM, no lymphadenopathy and supple Chest: CHEST: Yes Symmetrical chest wall rise and No Surgical scars present (Chest) Resp: COMMON NORMALS: normal respiratory effort, No retractions and No use of accessory muscles Cardio: COMMON NORMALS: regular rate, regular rhythm, No gallops present (Cardio), No clicks present (Cardio), No murmurs present (Cardio) and No rub (Cardio) RATE: regular rate RHYTHM: regular rhythm PERIPHERAL PULSES: other (Radial pulses 2+ and symmetric) Extremity: COMMON NORMALS: normal to inspection, full ROM, capillary refill normal and no clubbing, cyanosis or edema Neuro: COMMON NORMALS: patient oriented x3 SENSORIUM/ORIENTATION: Yes alert Psych: APPEARANCE: Yes well kempt Skin: COMMON NORMALS: no wounds, turgor normal and no jaundice GENERAL SKIN EXAM: turgor normal RASHES: rashes noted (Hives noted to the chest stomach back bilateral arms legs and palms) Course Vital Signs: Vital signs: Vital Signs Temperature 98.2 F 09/09/23 11:28 Pulse Rate 119 H 09/09/23 11:28 Respiratory Rate 18 09/09/23 11:28 Blood Pressure 131/69 09/09/23 11:28 Pulse Oximetry 95 09/09/23 11:28 Oxygen Delivery Me thod Room Air 09/09/23 11:28 MDM - Skin/Abscess/Foreign Bdy Medicial Decision Making Patient appears to have a large reaction secondary to new medication. Patient advised to stop the medication consult to her prescribing physician. In the meantime we will treat the allergic reaction and uritis. Meds given here. Rx given for home. Differential Diagnosis Likely viral exanthem, allergic reaction to drug, cellulitis, eczema, impetigo and contact dermatitis Medical Records I reviewed the patient's medical records. No radiology studies performed this visit Discharge Plan Discharge Patient Disposition: Home Clinical Impression: Allergic reaction caused by a drug, Acute urticaria Condition: Stable Prescriptions: New cetirizine 10 mg tablet 10 mg PO DAILY Qty: 14 0RF hydroxyzine pamoate 25 mg capsule 25 mg PO Q8H PRN (Reason: itching) Qty: 30 0RF No Action atorvastatin [Lipitor] 80 mg tablet 80 mg PO DAILY Breztri Aerosphere 160-9-4.8 mcg/actuation HFA aerosol inhaler 2 inh inhalation BID 30 Days Qty: 10.7 6RF ropinirole 2 mg tablet 2 mg PO BEDTIME duloxetine [Cymbalta] 60 mg capsule,delayed release(DR/EC) 60 mg PO DAILY Qty: 30 2RF (DME) diabetic shoes with 3 pairs inserts See Rx Instructions .Route .MEDSUPPLY Qty: 1 0RF Rx Instructions: As directed HOME (DME) TLSO brace See Rx Instructions .Route .MEDSUPPLY Qty: 1 0RF Rx Instructions: As directed prednisone 5 mg tablet See Rx Instructions PO .COMPLEX PRN (Reason: joint pain flare) Qty: 30 1RF Rx Instructions: take 1-2 tabs daily for 3-7 days prn joint pain flare orally PRN; leflunomide 10 mg tablet 10 mg PO DAILY Qty: 30 3RF hydroxyzine HCl 25 mg tablet 25 mg PO .HS PRN (Reason: sleep) Qty: 30 2RF carbidopa-levodopa 25-100 mg tablet 2 tab PO TID Qty: 180 5RF Rx Instructions: 2 with breakfast and lunch, 1 with dinner Botox 100 unit recon soln 100 unit IM Q90D 90 Days Qty: 1 0RF propranolol 20 mg tablet 20 mg PO BID Qty: 60 2RF duloxetine [Cymbalta] 30 mg capsule,delayed release(DR/EC) 30 mg PO DAILY Qty: 30 2RF Ingrezza 80 mg capsule 80 mg PO DAILY Qty: 30 2RF metformin 500 mg tablet 500 mg PO DAILY Qty: 90 0RF albuterol sulfate [Ventolin HFA] 90 mcg/actuation HFA aerosol inhaler 2 puff inhalation QID PRN (Reason: Shortness Of Breath) fenofibrate 54 mg tablet 54 mg PO DAILY Cipro 250 mg tablet 250 mg PO BID Qty: 14 0RF levothyroxine 100 mcg tablet 100 mcg PO DAILY nitroglycerin [Nitrostat] 0.4 mg Tablet, Sublingual 0.4 mg SUBLINGUAL Q5M PRN (Reason: Chest Pain) Rx Instructions: do not exceed 3 doses per episode clopidogrel 75 mg tablet 75 mg PO DAILY gabapentin 800 mg tablet 800 mg PO TID losartan 100 mg tablet 100 mg PO DAILY Qty: 30 0RF hydralazine 50 mg tablet 50 mg PO BID Qty: 60 4RF Trelegy Ellipta 200-62.5-25 mcg blister with device 1 inh INHALATION DAILY amlodipine 10 mg tablet 10 mg PO QAM Discharge Orders: Discharge ED (Routine); Ordered 09/09/23 Ordered By: Rolf Neri Referrals: Katina Monreal DO [Primary Care Provider] - Discharge Diet: Usual diet Discharge Activity: Resume usual activity Patient Instructions: Urticaria (ED) Activity Restrictions/Additional Instructions: Notify your physician who prescribed the drug on Sunday when office is open back up about the reaction. Coding Level of Care Code ED Identity Management Consultant for Aicha Jean Baptiste
[2023-09-09] MEDS: hyDROXYzine 25 mg Capsule PO (12:08)
[2023-09-09] MEDS: dexamethasone 10 mg/mL INJ 4 MG IM (12:09)
[2023-09-09 12:15] VITALS: BP 117/76; PULSE 61; O2SAT 96
[2023-09-09 12:20] VITALS: PULSE 86; O2SAT 96
== END 2023-09-09 12:21 | disposition home or self-care (01) ==
PROVIDERS: Emergency Provider Emergency Medicine; PCP Family Medicine
DX: L50.0 Allergic urticaria (principal); T42.6X5A Adverse effect of other antiepileptic and sedative-hypnotic drugs, initial encounter; I25.10 Atherosclerotic heart disease of native coronary artery without angina pectoris; E11.22 Type 2 diabetes mellitus with diabetic chronic kidney disease; N18.9 Chronic kidney disease, unspecified; E78.5 Hyperlipidemia, unspecified; G20.C Parkinsonism, unspecified; J44.9 Chronic obstructive pulmonary disease, unspecified; Z95.5 Presence of coronary angioplasty implant and graft; F17.210 Nicotine dependence, cigarettes, uncomplicated
CPT/HCPCS: 96372; 99284; J1100

== ENCOUNTER → 2023-09-13 11:37 | Outpatient (BNVA) | payer MEDICARE, SELFPAY | PROVIDERS: PCP Family Medicine; Visit Provider Internal Medicine Cardiovascular Disease | DX: I25.10 Atherosclerotic heart disease of native coronary artery without angina pectoris (principal); I10 Essential (primary) hypertension; E78.2 Mixed hyperlipidemia; Z79.899 Other long term (current) drug therapy; F31.73 Bipolar disorder, in partial remission, most recent episode manic; F15.21 Other stimulant dependence, in remission; F12.11 Cannabis abuse, in remission; F10.91 Alcohol use, unspecified, in remission; E11.9 Type 2 diabetes mellitus without complications; E03.9 Hypothyroidism, unspecified; M05.79 Rheumatoid arthritis with rheumatoid factor of multiple sites without organ or systems involvement; G20.B1 Parkinson's disease with dyskinesia, without mention of fluctuations; R91.1 Solitary pulmonary nodule; F17.210 Nicotine dependence, cigarettes, uncomplicated; Z79.84 Long term (current) use of oral hypoglycemic drugs | CPT/HCPCS: 99214 ==

== ENCOUNTER 2023-10-11 09:50 | Outpatient (CLI) | payer MEDICARE, SELFPAY ==
--- NOTE | 2023-10-11 10:01 | US_ITS ---
WS: [id number] BILATERAL 3D TOMOSYNTHESIS DIGITAL DIAGNOSTIC MAMMOGRAPHY WITH CAD CLINICAL INFORMATION: right breast mass 11:00 HISTORY: RIGHT breast lump COMPARISON: 2021 TECHNIQUE: Bilateral CC, MLO, and ML views. FINDINGS: Scattered fibroglandular densities bilaterally. Vascular calcification. Dystrophic calcifications RIG HT breast with oil cysts. Palpable marker outer RIGHT breast posterior depth. Ultrasound of this area is pending. Small ovoid nodule in this area. LEFT breast appears unchanged. ULTRASOUND BREAST RIGHT TECHNIQUE: Ultrasound right breast focused area of concern. CLINICAL INFORMATION: right breast mass 11:00 FINDINGS: Ultrasound outer RIGHT breast in the area of palpable concern 8 o'clock position 7 cm from the nipple . In the area of palpable concern there is a small superficial cystic lesion with internal debris lik genesis sebaceous cyst measuring 5 x 5 x 3 mm. No other suspicious abnormalities in this area. US/US breast RT limited* [id number] IMPRESSION: BI-RADS: 3-Probably Benign FOLLOW UP: 6 Month Follow-up Recommend 6-month follow-up RIGHT breast diagnostic mammography and ultrasound to confirm stability. Alternatively this could be resected surgically. Biopsy not recommended due to risk of rupture and infection
--- NOTE | 2023-10-11 10:04 | MM_ITS ---
WS: [id number] BILATERAL 3D TOMOSYNTHESIS DIGITAL DIAGNOSTIC MAMMOGRAPHY WITH CAD CLINICAL INFORMATION: right breast mass 11:00 HISTORY: RIGHT breast lump COMPARISON: 2021 TECHNIQUE: Bilateral CC, MLO, and ML views. FINDINGS: Scattered fibroglandular densities bilaterally. Vascular calcification. Dystrophic calcifications RIG HT breast with oil cysts. Palpable marker outer RIGHT breast posterior depth. Ultrasound of this area is pending. Small ovoid nodule in this area. LEFT breast appears unchanged. ULTRASOUND BREAST RIGHT TECHNIQUE: Ultrasound right breast focused area of concern. CLINICAL INFORMATION: right breast mass 11:00 FINDINGS: Ultrasound outer RIGHT breast in the area of palpable concern 8 o'clock position 7 cm from the nipple . In the area of palpable concern there is a small superficial cystic lesion with internal debris lik genesis sebaceous cyst measuring 5 x 5 x 3 mm. No other suspicious abnormalities in this area. MM/[place] [id number] IMPRESSION: BI-RADS: 3-Probably Benign FOLLOW UP: 6 Month Follow-up Recommend 6-month follow-up RIGHT breast diagnostic mammography and ultrasound to confirm stability. Alternatively this could be resected surgically. Biopsy not recommended due to risk of rupture and infection
== END 2023-10-11 09:51 | disposition home or self-care (01) ==
LOC: RAD 09:53
PROVIDERS: PCP Family Medicine; Visit Provider Family Medicine
DX: N63.11 Unspecified lump in the right breast, upper outer quadrant; G50.0 Trigeminal neuralgia; G24.4 Idiopathic orofacial dystonia; G20.B1 Parkinson's disease with dyskinesia, without mention of fluctuations; F31.73 Bipolar disorder, in partial remission, most recent episode manic; L27.0 Generalized skin eruption due to drugs and medicaments taken internally; F17.200 Nicotine dependence, unspecified, uncomplicated
CPT/HCPCS: 64612; 76642; 77062; 99214; G0279; J0585

== ENCOUNTER → 2023-11-13 08:48 | Outpatient (BNVA) | payer MEDICARE, SELFPAY | PROVIDERS: PCP Family Medicine Adult Medicine; Visit Provider Internal Medicine Rheumatology | DX: M05.79 Rheumatoid arthritis with rheumatoid factor of multiple sites without organ or systems involvement (principal); R76.8 Other specified abnormal immunological findings in serum; Z79.899 Other long term (current) drug therapy; M54.2 Cervicalgia; Z71.85 Encounter for immunization safety counseling; Z11.1 Encounter for screening for respiratory tuberculosis; Z11.59 Encounter for screening for other viral diseases; F17.210 Nicotine dependence, cigarettes, uncomplicated | CPT/HCPCS: 36415; 80076; 82565; 85025; 85651; 86140; 99214 ==

== ENCOUNTER → 2023-12-31 14:36 | Outpatient (BNVA) | payer MEDICARE, SELFPAY | PROVIDERS: PCP Family Medicine Adult Medicine | DX: F31.73 Bipolar disorder, in partial remission, most recent episode manic (principal) | CPT/HCPCS: 82607; 84443 ==

== ENCOUNTER → 2024-01-10 14:29 | Outpatient (BNVA) | payer MEDICARE, SELFPAY | PROVIDERS: PCP Family Medicine Adult Medicine; Visit Provider Specialist | DX: G50.0 Trigeminal neuralgia (principal); G24.4 Idiopathic orofacial dystonia; G20.B1 Parkinson's disease with dyskinesia, without mention of fluctuations; F31.73 Bipolar disorder, in partial remission, most recent episode manic | CPT/HCPCS: 64612; J0585 ==

== ENCOUNTER 2024-01-21 14:17 | Observation (INO) | payer MEDICARE, SELFPAY ==
[2024-01-21 14:29] VITALS: BP 90/56; PULSE 92; RESP 18; TEMP 37.3; O2SAT 91; BMI 25.2
--- NOTE | 2024-01-21 14:44 | ECG_ITS ---
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 Measurements Intervals [place] Rate: 94 P: 81 [place]: 172 QRS: -17 QRSD: 89 T: 84 QT: 351 QTc: 440 Interpretive Statements SINUS RHYTHM POSSIBLE ANTERIOR MYOCARDIAL INFARCTION , OF INDETERMINATE AGE [30 ms Q WAVE IN V3/V4, OR R < 0.2 mV IN V4] Compared to ECG 10/27/2022 11:19:53 Myocardial infarct finding now present Sinus tachycardia no longer present Electronically Signed On 01-22-2024 01:22:38 CDT by Angelina Goyal M.D. [id number] f
--- NOTE | 2024-01-21 14:44 | XRR_ITS ---
PROCEDURE INFORMATION: Exam: XR Chest Exam date and time: 01/21/2024 2:58 PM Age: 78 years old Clinical indication: Pain; Angina pectoris; Additional info: Chest pain TECHNIQUE: Imaging protocol: Radiologic exam of the chest. Views: 1 view. COMPARISON: CT chest w con* [id number] 05/31/2023 4:21 PM FINDINGS: Lungs: Unremarkable. No consolidation. Pleural spaces: Unremarkable. No pleural effusion. No pneumothorax. Heart/Mediastinum: Unremarkable. No cardiomegaly. Bones/joints: Unremarkable. XR/XR chest 1V portable [id number] IMPRESSION: No acute findings.
[2024-01-21 15:01] LABS: Basophils % 0.6 %; Eosinophils # 0.1 10^3/uL (0.0-0.8); Eosinophils % 1.5 %; Hematocrit 41.6 % (36-47); Lymphocytes # 1.2 10^3/uL (0.8-4.8); Lymphocytes % 25.5 %; Mean Corpuscular HGB Conc 32.2 g/dL (30-55); Mean Corpuscular Hemoglobin 29.4 pg (27-33); Mean Corpuscular Volume 91.2 fl (85-98); Mean Platelet Volume 9.4 fL (7.4-10.4); Monocytes # 0.8 10^3/uL (0.2-0.9); Neutrophils # 2.67 10^3/uL (1.8-7.7); Neutrophils % 56.2 %; Nucleated Red Blood Cells % 0 %; Platelet Count 199 10^3/cmm (157-399); Red Blood Count 4.56 10^6/uL (3.85-5.65); Red Cell Distribution Width 13.8 % (12.1-15.1); White Blood Count 4.75 10^3/uL (3.29-11.43)
--- NOTE | 2024-01-21 15:17 | W.ED.CHESTPA ---
HPI - Chest Pain General: Chief Complaint: Chest Pain Stated Complaint: chest pain Time Seen by Provider: 01/21/24 15:06 History of Present Illness: 78-year-old female who presents to the emergency room with complaints of chest discomfort that began while she was driving a car. She describes the pain is radiating into her neck and a little bit into her back. Lasted about 35 minutes per her report and stopped completely after she took a sublingual nitro. She has not had any other recent episodes of chest pain but had noticed significant worsening of dyspnea with exertion which she attributed to her COPD. She has her usual baseline cough. She has a known history of coronary disease previously had stents around 2001. Patient was unsure of last stress test and is reviewing chart found a stress test from September 2020 that showed mildly elevated transient ischemic ischemic dilation index was noted that it may be hypertensive response or subendocardial ischemia. The perfusion scan portion was read as normal with an ejection fraction of 77%. She denies any recent fever sweats or chills no leg swelling she has no history of DVT or PE she is not on any anticoagulants. She is still taking clopidogrel daily. Associated symptoms: Reports dyspnea; Deny abdominal pain or fever(s) Related Data Home Medications Medication Instructions Recorded Confirmed nitroglycerin 0.4 mg sublingual 0.4 mg sublingual Q5M PRN Chest 09/06/22 01/10/24 tablet (Nitrostat) Pain fluticasone fur. 200 mcg-umeclid 1 inh inhalation DAILY 03/23/23 01/10/24 62.5 mcg-vilant 25 mcg inhalat.powder (Trelegy Ellipta) Previous Rx's Medication Instructions Recorded diabetic shoes with 3 pairs inserts #1 ea 05/22/22 losartan 100 mg tablet 100 mg PO DAILY #30 tabs 09/07/22 hydralazine 50 mg tablet 50 mg PO BID #60 tabs 09/28/22 TLSO brace #1 ea 11/30/22 hydroxyzine HCl 25 mg tablet 25 mg PO .HS PRN sleep #30 tabs 04/17/23 carbidopa 25 mg-levodopa 100 mg 2 tab PO TID #180 tabs 06/20/23 tablet onabotulinumtoxinA 100 unit 100 unit IM Q90D 90 days #1 ea 06/29/23 solution for injection (Botox) hydroxyzine pamoate 25 mg capsule 25 mg PO Q8H PRN itching #30 caps 09/09/23 promethazine 12.5 mg tablet 12.5 mg PO TID PRN nausea and 10/24/23 vomiting #90 tabs duloxetine 60 mg capsule,delayed 60 mg PO DAILY #30 caps 10/25/23 release (Cymbalta) prednisone 5 mg tablet See Rx Instructions PO .COMPLEX 11/13/23 PRN joint pain flare #30 tabs varenicline 0.5 mg (11)-1 mg (42) See Rx Instructions PO PER PKG DIR 11/28/23 tablets in a dose pack (ChantiMusicraiser #53 ea Starting Month Box) azelastine 137 mcg (0.1 %) nasal 2 spray intranasal BID allergies 12/04/23 spray #30 mL cetirizine 10 mg tablet 10 mg PO DAILY allergies #30 tabs 12/04/23 budesonide 160 mcg-glycopyr 9 2 inh inhalation BID 30 days #10.7 12/07/23 mcg-formot 4.8 mcg/actuation HFA grams inhaler (Breztri Aerosphere) ropinirole 2 mg tablet 2 mg PO BEDTIME #30 tabs 12/10/23 meloxicam 7.5 mg tablet 7.5 mg PO DAILY #30 tabs 12/11/23 albuterol sulfate 90 mcg/actuation 2 puff inhalation QID PRN 12/21/23 aerosol inhaler (Ventolin HFA) Shortness Of Breath #8.5 grams amlodipine 10 mg tablet 10 mg PO QAM blood thinner #1 tab 12/25/23 atorvastatin 80 mg tablet (Lipitor) 80 mg PO DAILY cholesterol #1 tab 12/25/23 clopidogrel 75 mg tablet 75 mg PO DAILY #90 tabs 12/25/23 leflunomide 10 mg tablet 10 mg PO DAILY #90 tabs 12/25/23 levothyroxine 100 mcg tablet 100 mcg PO DAILY thyroid #30 tabs 12/25/23 metformin 500 mg tablet 500 mg PO DAILY #90 tabs 12/25/23 valbenazine 80 mg capsule 80 mg PO DAILY #30 caps 12/26/23 (Ingrezza) duloxetine 30 mg capsule,delayed 30 mg PO DAILY #30 caps 01/01/24 release (Cymbalta) propranolol 20 mg tablet 20 mg PO BID #60 tabs 01/01/24 fenofibrate 54 mg tablet 54 mg PO DAILY Cholesterol #30 tabs 01/09/24 gabapentin 800 mg tablet 800 mg PO TID Neuropathy #90 tabs 01/10/24 Allergies Allergy/AdvReac Type Severity Reaction Status Date / Time cephalexin [From Keflex] Allergy Mild ADR-Itching Verified 01/10/24 14:34 lamotrigine [From Lamictal] Allergy ALGY-Rash Verified 01/10/24 14:34 Review of Systems Const: Denies: fever(s) or chills Card: Reports: chest pain Resp: Reports: dyspnea GI: Denies: abdominal pain : Denies: dysuria, urinary frequency or urinary urgency Musc: Denies: neck pain or back pain Skin/Breast: Denies: rash PFSH ED PFSH: Medical History Cyst of breast, right, benign solitary Ready to quit smoking Immunization counseling Hip arthritis SS-A antibody positive Incidental pulmonary nodule, > 3mm and < 8mm Allergic rhinitis due to allergen Alcohol use disorder in remission Cannabis use disorder, mild, in sustained remission, abuse Amphetamine use disorder, moderate, in sustained remission Coronary artery disease Patient with stents High risk medication use Seropositive rheumatoid arthritis of multiple sites Diabetes mellitus Hyperlipidemia Hypertension Hypothyroidism Rib fractures Wheezing Goals of care, counseling/discussion Hyponatremia Closed left humeral fracture Major depressive disorder, recurrent, in partial remission Trigeminal neuralgia Psychiatric care Rheumatoid arthritis ZAY positive Dyspnea on exertion Chronic kidney disease (CKD) Chronic obstructive pulmonary disease Tardive dyskinesia Bipolar disorder, in partial remission, most recent episode manic Surgical History History of colonoscopy with polypectomy (~04/20/20) 2017 History of coronary angioplasty with insertion of stent 2006: 2 stents. 2008: 2 stents. History of hand surgery Repair right thumb fracture History of back surgery (01/17/13) History of bilateral breast reduction surgery History of right cataract extraction History of bilateral tubal ligation History of dilation and curettage (~1982) History of bladder surgery (~1989) Vaginal Urethral sling with possible anchors . Performed by Dr. Salas at [facility]. History of hemorrhoidectomy History of cholecystectomy History of vaginal hysterectomy Still has ovaries. Performed in [place], [place]. Performed due to bleeding. Family History Brother Heart disease Hypertension Hypercholesteremia Diabetes Sister Thyroid disease Social History Smoking and tobacco/nicotine status: current every day tobacco/nicotine user (1 pack a day) cigarettes Packs smoked per day: 1 Years cigarettes smoked: 50 Substance/Drug Use: never Lives independently: Yes Household members: none Marital status: Current occupational status: disabled Do you think of yourself as: Straight/Heterosexual Current gender identity: Female Physical Exam Const: GENERAL APPEARANCE: cooperative ORIENTATION/CONSCIOUSNESS: Yes awake, Yes oriented to person, Yes oriented to place and Yes oriented to time HENMT: COMMON NORMALS: normocephalic, atraumatic and hearing grossly normal bilaterally HEAD & SCALP: normocephalic and atraumatic Resp: COMMON NORMALS: normal respiratory effort, No retractions and No use of accessory muscles AUSCULTATION: wheezes (Prolonged expiratory phase) OTHER: Intermittent pursed lip breathing noted Cardio: COMMON NORMALS: regular rate, regular rhythm and No murmurs present (Cardio) RATE: regular rate RHYTHM: regular rhythm GI: COMMON NORMALS: Soft to palpation and No hepatosplenomegaly present AUSCULTATION: Yes normoactive bowel sounds PALPATION: Yes Soft to palpation, No Tenderness to palpation present (GI), No Guarding due to palpation present (GI) and Yes No hepatosplenomegaly present Extremity: COMMON NORMALS: normal to inspection, capillary refill normal, no clubbing, cyanosis or edema, no calf tenderness and no pedal edema Neuro: SENSORIUM/ORIENTATION: Yes oriented to person, Yes oriented to place and Yes oriented to time Skin: COMMON NORMALS: no rashes or lesions noted GENERAL SKIN EXAM: no rashes or lesions noted Course Vital Signs: Vital signs: Vital Signs Temperature 99.1 F 01/21/24 14:29 Pulse Rate 81 01/21/24 16:16 Respiratory Rate 16 01/21/24 16:16 Blood Pressure 142/63 01/21/24 16:16 Pulse Oximetry 93 01/21/24 16:16 Oxygen Delivery Me thod Room Air 01/21/24 16:16 MDM - Chest Pain Medical Decision Making Patient has a heart score of 8. No acute findings on her EKG. Troponins initially 16. Second 1 actually trended down a bit. Concerning that the dyspnea on exertion she was having prior to today's episode was a anginal equivalent now she is having unstable angina relieved by nitro. Given her history of coronary artery disease we will place on observation and have cardiology see the patient. She has a heart score of 8. Medical Records I reviewed the patient's medical records. Lab Data I reviewed the patient's lab results. 01/21/24 14:57 01/21/24 14:57 Radiology Impressions Chest X-Ray 01/21/24 14:44 IMPRESSION: No acute findings. Laboratory Results WBC 4.75 10^3/uL (3.29-11.43) 01/21/24 14:57 RBC 4.56 10^6/uL (3.85-5.65) 01/21/24 14:57 Hgb 13.40 g/dL (11.27-16.99) 01/21/24 14:57 Hct 41.6 % (36-47) 01/21/24 14:57 MCV 91.2 fl (85-98) 01/21/24 14:57 MCH 29.4 pg (27-33) 01/21/24 14:57 MCHC 32.2 g/dL (30-55) 01/21/24 14:57 RDW 13.8 % (12.1-15.1) 01/21/24 14:57 Plt Count 199 10^3/cmm (157-399) 01/21/24 14:57 MPV 9.4 fL (7.4-10.4) 01/21/24 14:57 Neut % (Auto) 56.2 % 01/21/24 14:57 Lymph % (Auto) 25.5 % 01/21/24 14:57 [place] % (Auto) 16.0 % 01/21/24 14:57 Eos % (Auto) 1.5 % 01/21/24 14:57 Baso % (Auto) 0.6 % 01/21/24 14:57 Neut # (Auto) 2.67 10^3/uL (1.8-7.7) 01/21/24 14:57 Lymph # (Auto) 1.2 10^3/uL (0.8-4.8) 01/21/24 14:57 [place] # (Auto) 0.8 10^3/uL (0.2-0.9) 01/21/24 14:57 Eos # (Auto) 0.1 10^3/uL (0.0-0.8) 01/21/24 14:57 Baso # (Auto) 0.0 10^3/uL (0.0-0.1) 01/21/24 14:57 Nucleated RBC % (auto) 0 % 01/21/24 14:57 Nucleated RBCs # 0.0 /100WBC 01/21/24 14:57 Sodium 138 mmol/L (136-145) 01/21/24 14:57 Potassium 4.8 mmol/L (3.5-5.1) 01/21/24 14:57 Chloride 106 mmol/L (98-107) 01/21/24 14:57 Carbon Dioxide 26 mmol/L (22-29) 01/21/24 14:57 Anion Gap 10.8 (5-19) 01/21/24 14:57 BUN 17 mg/dL (8-23) 01/21/24 14:57 Creatinine 1.1 mg/dL (0.5-0.9) H 01/21/24 14:57 GFR Calculation Not Reportable 01/21/24 14:57 Glucose 126 mg/dL (65-115) H 01/21/24 14:57 Calculated Osmolality 289 mOsm/kg (285-295) 01/21/24 14:57 Calcium 8.8 mg/dL (8.5-10.5) 01/21/24 14:57 Total Bilirubin 0.2 mg/dL (0.15-1.2) 01/21/24 14:57 AST 16 U/L (0-32) 01/21/24 14:57 ALT < 5 U/L (0-33) 01/21/24 14:57 Alkaline Phosphatase 65 U/L (35-105) 01/21/24 14:57 Troponin T Baseline 18 ng/L (0-10) H 01/21/24 14:57 Troponin T 120 Minute 15.06 ng/L (0-10) H 01/21/24 16:43 Delta Troponin T -2.94 ABS# (0-10) L 01/21/24 16:43 NT-Pro-B Natriuret Pep 312 pg/mL (0-450) 01/21/24 14:57 Total Protein 6.4 g/dL (6.6-8.7) L 01/21/24 14:57 Albumin 4.0 g/dL (3.5-5.2) 01/21/24 14:57 Globulin 2.4 g/dL (1.3-4.6) 01/21/24 14:57 All radiology interpretation(s) finalized by discharge Clincial Decision Support The following clinical decision support tools were used to aid in care of the patient HEART Score -> History: Highly Suspicious, EKG: Non-specific Changes, Age: 65 or more yrs, Risk Factors: >/=3 Risk Factors, Troponin: Baseline Trop 16-45 ng/L. Resulting HEART Score: 8. Discharge Plan Discharge Patient Disposition: Placed in Observation Clinical Impression: Unstable angina Coding Level of Care Code ED Client Insights Consultant for Aicha Jean Baptiste
--- NOTE | 2024-01-21 15:21 | ECG_ITS ---
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 Measurements Intervals [place] Rate: 75 P: 78 [place]: 178 QRS: -1 QRSD: 99 T: 78 QT: 381 QTc: 427 Interpretive Statements SINUS RHYTHM Compared to ECG 01/21/2024 14:23:30 Myocardial infarct finding no longer present Electronically Signed On 01-22-2024 01:36:10 CDT by Angelina Goyal M.D. [id number]
[2024-01-21 15:22] LABS: Troponin(5th) Baseline 18 ng/L (0-10)
[2024-01-21 15:32] VITALS: BP 132/67; PULSE 78; O2SAT 98
[2024-01-21 15:35] LABS: Alanine Aminotransferase < 5 U/L (0-33); Alkaline Phosphatase 65 U/L (35-105); Anion Gap 10.8 (5-19); Aspartate Amino Transferase 16 U/L (0-32); Blood Urea Nitrogen 17 mg/dL (8-23); Calcium 8.8 mg/dL (8.5-10.5); Carbon Dioxide 26 mmol/L (22-29); Chloride 106 mmol/L (98-107); Creatinine Clr Calc Pharmacy 41.7706; Globulin 2.4 g/dL (1.3-4.6); Glucose 126 mg/dL (65-115); NT Pro B Type Natriuretic Pept 312 pg/mL (0-450); Osmolality Calculated 289 mOsm/kg (285-295); Potassium 4.8 mmol/L (3.5-5.1); Sodium 138 mmol/L (136-145); Total Bilirubin 0.2 mg/dL (0.15-1.2); Total Protein 6.4 g/dL (6.6-8.7)
[2024-01-21 16:16] VITALS: BP 142/63; PULSE 81; RESP 16; O2SAT 93
--- NOTE | 2024-01-21 16:56 | P.HP_ITS ---
Providers/Chief Complaint 2 Primary Care Provider: Eric Rodriguez MD Chief Complaint: chest pain History of Present Illness Elyssa Daniels is a 78 year old female who is an active smoker smokes 1 pack/day established history of coronary disease LAD stent 2001, presented with chief complaint of chest pain. Patient is stating that around 2 PM she started having chest pain which was coming from her throat area, it made her very anxious because pain started with her throat and it radiated towards her chest she describing this pain as stabbing extremely sharp pain. It was not stated with shortness of breath nausea vomiting or diaphoresis. She took 1 dose of nitroglycerin and called EMS. At the time of my evaluation patient is chest pain-free. Her blood pressure is 200/112 mmHg at the time of evaluation, patient has not taken her antihypertensive regimen today. I will give her 1 dose of hydralazine, EKG not showing any ischemic or infarctive changes, request D-dimer. Second troponin is trending down Review of Systems 2 Const: Denies: fever(s) Eyes: Denies: change in vision ENMT: Denies: throat pain Card: Reports: chest pain Resp: Denies: dyspnea Medications/Allergies Home Medications Medication Instructions Recorded Confirmed Last Taken Type diabetic shoes with 3 pairs inserts #1 ea 05/22/22 01/10/24 Unknown Rx nitroglycerin 0.4 mg sublingual 0.4 mg sublingual Q5M PRN Chest 09/06/22 01/10/24 Unknown History tablet (Nitrostat) Pain losartan 100 mg tablet 100 mg PO DAILY #30 tabs 09/07/22 01/10/24 03/23/23 Rx hydralazine 50 mg tablet 50 mg PO BID #60 tabs 09/28/22 01/10/24 03/23/23 Rx TLSO brace #1 ea 11/30/22 01/10/24 Unknown Rx fluticasone fur. 200 mcg-umeclid 1 inh inhalation DAILY 03/23/23 01/10/24 03/23/23 History 62.5 mcg-vilant 25 mcg inhalat.powder (Trelegy Ellipta) hydroxyzine HCl 25 mg tablet 25 mg PO .HS PRN sleep #30 tabs 04/17/23 01/10/24 Unknown Rx carbidopa 25 mg-levodopa 100 mg 2 tab PO TID #180 tabs 06/20/23 01/10/24 Unknown Rx tablet onabotulinumtoxinA 100 unit 100 unit IM Q90D 90 days #1 ea 06/29/23 01/10/24 Unknown Rx solution for injection (Botox) hydroxyzine pamoate 25 mg capsule 25 mg PO Q8H PRN itching #30 caps 09/09/23 01/10/24 Unknown Rx promethazine 12.5 mg tablet 12.5 mg PO TID PRN nausea and 10/24/23 01/10/24 Unknown Rx vomiting #90 tabs duloxetine 60 mg capsule,delayed 60 mg PO DAILY #30 caps 10/25/23 01/10/24 Unknown Rx release (Cymbalta) prednisone 5 mg tablet See Rx Instructions PO .COMPLEX 11/13/23 01/10/24 Unknown Rx PRN joint pain flare #30 tabs varenicline 0.5 mg (11)-1 mg (42) See Rx Instructions PO PER PKG DIR 11/28/23 01/10/24 Unknown Rx tablets in a dose pack (Chantix #53 ea Starting Month Box) azelastine 137 mcg (0.1 %) nasal 2 spray intranasal BID allergies 12/04/23 01/10/24 Unknown Rx spray #30 mL cetirizine 10 mg tablet 10 mg PO DAILY allergies #30 tabs 12/04/23 01/10/24 Unknown Rx budesonide 160 mcg-glycopyr 9 2 inh inhalation BID 30 days #10.7 12/07/23 01/10/24 Unknown Rx mcg-formot 4.8 mcg/actuation HFA grams inhaler (Breztri Aerosphere) ropinirole 2 mg tablet 2 mg PO BEDTIME #30 tabs 12/10/23 01/10/24 Unknown Rx meloxicam 7.5 mg tablet 7.5 mg PO DAILY #30 tabs 12/11/23 01/10/24 Unknown Rx albuterol sulfate 90 mcg/actuation 2 puff inhalation QID PRN 12/21/23 01/10/24 Unknown Rx aerosol inhaler (Ventolin HFA) Shortness Of Breath #8.5 grams amlodipine 10 mg tablet 10 mg PO QAM blood thinner #1 tab 12/25/23 01/10/24 Unknown Rx atorvastatin 80 mg tablet (Lipitor) 80 mg PO DAILY cholesterol #1 tab 12/25/23 01/10/24 Unknown Rx clopidogrel 75 mg tablet 75 mg PO DAILY #90 tabs 12/25/23 01/10/24 Unknown Rx leflunomide 10 mg tablet 10 mg PO DAILY #90 tabs 12/25/23 01/10/24 Unknown Rx levothyroxine 100 mcg tablet 100 mcg PO DAILY thyroid #30 tabs 12/25/23 01/10/24 Unknown Rx metformin 500 mg tablet 500 mg PO DAILY #90 tabs 12/25/23 01/10/24 Unknown Rx valbenazine 80 mg capsule 80 mg PO DAILY #30 caps 12/26/23 01/10/24 Unknown Rx (Ingrezza) duloxetine 30 mg capsule,delayed 30 mg PO DAILY #30 caps 01/01/24 01/10/24 Unknown Rx release (Cymbalta) propranolol 20 mg tablet 20 mg PO BID #60 tabs 01/01/24 01/10/24 Unknown Rx fenofibrate 54 mg tablet 54 mg PO DAILY Cholesterol #30 tabs 01/09/24 01/10/24 Unknown Rx gabapentin 800 mg tablet 800 mg PO TID Neuropathy #90 tabs 01/10/24 01/10/24 Unknown Rx Allergies Allergy/AdvReac Type Severity Reaction Status Date / Time cephalexin [From Keflex] Allergy Mild ADR-Itching Verified 01/10/24 14:34 lamotrigine [From Lamictal] Allergy ALGY-Rash Verified 01/10/24 14:34 PFSH Acute 2 PFSH: Medical History Cyst of breast, right, benign solitary Ready to quit smoking Immunization counseling Hip arthritis SS-A antibody positive Incidental pulmonary nodule, > 3mm and < 8mm Allergic rhinitis due to allergen Alcohol use disorder in remission Cannabis use disorder, mild, in sustained remission, abuse Amphetamine use disorder, moderate, in sustained remission Coronary artery disease Patient with stents High risk medication use Seropositive rheumatoid arthritis of multiple sites Diabetes mellitus Hyperlipidemia Hypertension Hypothyroidism Rib fractures Wheezing Goals of care, counseling/discussion Hyponatremia Closed left humeral fracture Major depressive disorder, recurrent, in partial remission Trigeminal neuralgia Psychiatric care Rheumatoid arthritis ZAY positive Dyspnea on exertion Chronic kidney disease (CKD) Chronic obstructive pulmonary disease Tardive dyskinesia Bipolar disorder, in partial remission, most recent episode manic Surgical History History of colonoscopy with polypectomy (~04/20/20) 2017 History of coronary angioplasty with insertion of stent 2006: 2 stents. 2008: 2 stents. History of hand surgery Repair right thumb fracture History of back surgery (01/17/13) History of bilateral breast reduction surgery History of right cataract extraction History of bilateral tubal ligation History of dilation and curettage (~1982) History of bladder surgery (~1989) Vaginal Urethral sling with possible anchors . Performed by Dr. Salas at [facility]. History of hemorrhoidectomy History of cholecystectomy History of vaginal hysterectomy Still has ovaries. Performed in [place], [place]. Performed due to bleeding. Family History Brother Heart disease Hypertension Hypercholesteremia Diabetes Sister Thyroid disease Social History Smoking and tobacco/nicotine status: current every day tobacco/nicotine user (1 pack a day) cigarettes Packs smoked per day: 1 Years cigarettes smoked: 50 Substance/Drug Use: never Lives independently: Yes Household members: none Marital status: Current occupational status: disabled Do you think of yourself as: Straight/Heterosexual Current gender identity: Female Vitals/I&O/Wt Last Vital Signs Temp 99.1 F 01/21/24 14:29 Pulse 81 01/21/24 16:16 Resp 16 01/21/24 16:16 BP 142/63 01/21/24 16:16 Pulse Ox 93 01/21/24 16:16 O2 Del Method Room Air 01/21/24 16:16 Weight last 48 hrs Weight 68.946 kg Physical Exam 2 Narrative: Awake and alert Euvolemic No active chest pain GCS 15 Hemodynamically stable Pleasant cooperative Hypertensive Nonfocal neuroexam Data 01/21/24 14:57 01/21/24 14:57 A&P Assessment and plan (1) Unstable angina: (2) Diabetes mellitus: Qualifiers: Diabetes mellitus type: type 2 Diabetes mellitus manager intermediate insulin use: without snf use Diabetes mellitus complication status: without complication Qualified Code(s): E11.9 - Type 2 diabetes mellitus without complications (3) Hypothyroidism: Qualifiers: Hypothyroidism type: acquired Qualified Code(s): E03.9 - Hypothyroidism, unspecified (4) Hypertensive urgency: Plan Unstable angina Hypertensive urgency Will give 1 dose of hydralazine MAP reduction of 25% in next 4 to 6 hours Start therapeutic Lovenox for now requested D-dimer serial troponin and EKG Considering establish history of coronary disease will require stress test in the morning She is chest pain-free at this time She describing her pain as sharp radiating towards her throat. There is no radial radial delay, no severe mediastinal widening, suspicion for aortic dissection is low however it will stay in our differential Admit to [facility] Request chest is in the morning N.p.o. after midnight Full code Patient is not ready to quit smoking stated that she is under a lot of anxiety Attestations 2 Medical Necessity Statement*: Anticipating discharge within 48 hours Diagnoses Unstable angina I20.0 Type 2 diabetes mellitus without complication, without long-term current use of insulin E11.9 Diabetes mellitus type: type 2 Diabetes mellitus manager intermediate insulin use: without manager intermediate use Diabetes mellitus complication status: without complication Acquired hypothyroidism E03.9 Hypothyroidism type: acquired Hypertensive urgency I16.0
[2024-01-21 17:06] LABS: Troponin 5 2HR 15.06 ng/L (0-10); Troponin 5 2HR Delta -2.94 ABS# (0-10)
[2024-01-21 17:29] LABS: D Dimer 0.95 ug/mLFEU (0-0.59)
--- NOTE | 2024-01-21 17:52 | ECG_ITS ---
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 Interpretive Statements PROCEDURE: At the baseline, the EKG revealed normal sinus rhythm with poor R wave progression. Possible old septal LA.. The baseline heart was 86 bpm with a blood pressue of 192/80 mm of Hg Lexiscan was infused over a period of 20 seconds. A total of 0.4 milligrams of Lexiscan was infused. The stress phase was continued for a total of 5 minutes. Heart rate at the end of the stress phase was 146 bpm with a blood pressure 186/80 mm of Hg. The EKG at the peak infusion revealed no significant changes. Sestamibi was injected 20 seconds after the Lexiscan infusion. Patient was complaining of chest pressure and shortness of breath with the Lexiscan infusion. Responded to IV aminophylline, 25 mg. Heart rate at the end of the recovery phase was 93 bpm with a blood pressure of 180/68 mm of Hg. CONCLUSION: 1. No significant EKG changes with the LexiScan infusion 2. Lexiscan induced chest pressure/shortness of breath/sinus tachycardia.-responded to IV aminophylline. 3. Normal blood pressure response to Lexiscan infusion 4. Sestamibi/sestamibi perfusion scan pending; see separate report. Lung unchanged pre/post procedure; Intraprocedure shortess of breath; Symptoms resoled by discharge Electronically Signed On 01-27-2024 19:24:58 CDT by Angelina Goyal M.D. [id number]
[2024-01-21] MEDS: hyDRALAzine 20 mg/mL INJ 1 mL 5 MG IVP (18:34)
[2024-01-21 18:36] VITALS: BP 140/79
--- NOTE | 2024-01-21 19:15 | PM.CONSULT ---
Providers/Reason For Consult Consulting Physician/Specialty*: Marco Lizama MD/ Cardiology Reason for Consult*: Chest pain Requesting Physician: Dr Mast Attending Physician: Fariha Chowdary MD Primary Care Provider: Eric Rodriguez MD History of Present Illness History of Present Illness Elyssa Daniels is a 78 year old female with past medical history of coronary artery disease with prior stents in 2011, hypertension who was driving car and started having chest pain radiating to the neck. Lasted for about 30 minutes. She was found to have very high blood pressure readings. EKG did not show significant ST-T wave changes. Initial troponin is 18 and has not trended up. Review of Systems Const: Denies: fever(s) Eyes: Denies: change in vision ENMT: Denies: throat pain Card: Reports: chest pain Resp: Denies: dyspnea Medications/Allergies Home Medications Medication Instructions Recorded Confirmed Last Taken Type diabetic shoes with 3 pairs inserts #1 ea 05/22/22 01/24/24 Unknown Rx nitroglycerin 0.4 mg sublingual 0.4 mg sublingual Q5M PRN Chest 09/06/22 01/24/24 Unknown History tablet (Nitrostat) Pain losartan 100 mg tablet 100 mg PO DAILY #30 tabs 09/07/22 01/24/24 03/23/23 Rx TLSO brace #1 ea 11/30/22 01/24/24 Unknown Rx fluticasone fur. 200 mcg-umeclid 1 inh inhalation DAILY 03/23/23 01/24/24 03/23/23 History 62.5 mcg-vilant 25 mcg inhalat.powder (Trelegy Ellipta) hydroxyzine HCl 25 mg tablet 25 mg PO .HS PRN sleep #30 tabs 04/17/23 01/24/24 Unknown Rx hydroxyzine pamoate 25 mg capsule 25 mg PO Q8H PRN itching #30 caps 09/09/23 01/24/24 Unknown Rx promethazine 12.5 mg tablet 12.5 mg PO TID PRN nausea and 10/24/23 01/24/24 Unknown Rx vomiting #90 tabs prednisone 5 mg tablet See Rx Instructions PO .COMPLEX 11/13/23 01/24/24 Unknown Rx PRN joint pain flare #30 tabs varenicline 0.5 mg (11)-1 mg (42) See Rx Instructions PO PER PKG DIR 11/28/23 01/24/24 Unknown Rx tablets in a dose pack (Chantix #53 ea Starting Month Box) azelastine 137 mcg (0.1 %) nasal 2 spray intranasal BID allergies 12/04/23 01/24/24 Unknown Rx spray #30 mL cetirizine 10 mg tablet 10 mg PO DAILY allergies #30 tabs 12/04/23 01/24/24 Unknown Rx budesonide 160 mcg-glycopyr 9 2 inh inhalation BID 30 days #10.7 12/07/23 01/24/24 Unknown Rx mcg-formot 4.8 mcg/actuation HFA grams inhaler (Breztri Aerosphere) ropinirole 2 mg tablet 2 mg PO BEDTIME #30 tabs 12/10/23 01/24/24 Unknown Rx meloxicam 7.5 mg tablet 7.5 mg PO DAILY #30 tabs 12/11/23 01/24/24 Unknown Rx albuterol sulfate 90 mcg/actuation 2 puff inhalation QID PRN 12/21/23 01/24/24 Unknown Rx aerosol inhaler (Ventolin HFA) Shortness Of Breath #8.5 grams amlodipine 10 mg tablet 10 mg PO QAM blood thinner #1 tab 12/25/23 01/24/24 Unknown Rx atorvastatin 80 mg tablet (Lipitor) 80 mg PO DAILY cholesterol #1 tab 12/25/23 01/24/24 Unknown Rx clopidogrel 75 mg tablet 75 mg PO DAILY #90 tabs 12/25/23 01/24/24 Unknown Rx leflunomide 10 mg tablet 10 mg PO DAILY #90 tabs 12/25/23 01/24/24 Unknown Rx levothyroxine 100 mcg tablet 100 mcg PO DAILY thyroid #30 tabs 12/25/23 01/24/24 Unknown Rx metformin 500 mg tablet 500 mg PO DAILY #90 tabs 12/25/23 01/24/24 Unknown Rx valbenazine 80 mg capsule 80 mg PO DAILY #30 caps 12/26/23 01/24/24 Unknown Rx (Ingrezza) propranolol 20 mg tablet 20 mg PO BID #60 tabs 01/01/24 01/24/24 Unknown Rx fenofibrate 54 mg tablet 54 mg PO DAILY Cholesterol #30 tabs 01/09/24 01/24/24 Unknown Rx gabapentin 800 mg tablet 800 mg PO TID Neuropathy #90 tabs 01/10/24 01/24/24 Unknown Rx carbidopa 25 mg-levodopa 100 mg 2 tab PO TID #180 tabs 01/23/24 01/24/24 Unknown Rx tablet duloxetine 30 mg capsule,delayed 30 mg PO DAILY #30 caps 01/23/24 01/24/24 Unknown Rx release (Cymbalta) duloxetine 60 mg capsule,delayed 60 mg PO DAILY #30 caps 01/23/24 01/24/24 Unknown Rx release (Cymbalta) hydralazine 50 mg tablet 50 mg PO BID #60 tabs 01/23/24 01/24/24 Unknown Rx Allergies Allergy/AdvReac Type Severity Reaction Status Date / Time cephalexin [From Keflex] Allergy Mild ADR-Itching Verified 01/24/24 15:08 lamotrigine [From Lamictal] Allergy ALGY-Rash Verified 01/24/24 15:08 PFSH Acute PFSH: Medical History Cyst of breast, right, benign solitary Ready to quit smoking Immunization counseling Hip arthritis SS-A antibody positive Incidental pulmonary nodule, > 3mm and < 8mm Allergic rhinitis due to allergen Alcohol use disorder in remission Cannabis use disorder, mild, in sustained remission, abuse Amphetamine use disorder, moderate, in sustained remission Coronary artery disease Patient with stents High risk medication use Seropositive rheumatoid arthritis of multiple sites Diabetes mellitus Hyperlipidemia Hypertension Hypothyroidism Rib fractures Wheezing Goals of care, counseling/discussion Hyponatremia Closed left humeral fracture Major depressive disorder, recurrent, in partial remission Trigeminal neuralgia Psychiatric care Rheumatoid arthritis ZAY positive Dyspnea on exertion Chronic kidney disease (CKD) Chronic obstructive pulmonary disease Tardive dyskinesia Bipolar disorder, in partial remission, most recent episode manic Surgical History History of colonoscopy with polypectomy (~04/20/20) 2017 History of coronary angioplasty with insertion of stent 2006: 2 stents. 2008: 2 stents. History of hand surgery Repair right thumb fracture History of back surgery (01/17/13) History of bilateral breast reduction surgery History of right cataract extraction History of bilateral tubal ligation History of dilation and curettage (~1982) History of bladder surgery (~1989) Vaginal Urethral sling with possible anchors . [place] [facility] History of hemorrhoidectomy History of cholecystectomy History of vaginal hysterectomy Still has ovaries. Performed in [place], [place]. Performed due to bleeding. Family History Brother Heart disease Hypertension Hypercholesteremia Diabetes Sister Thyroid disease Social History Smoking and tobacco/nicotine status: current every day tobacco/nicotine user (1 pack a day) cigarettes Packs smoked per day: 1 Years cigarettes smoked: 50 Substance/Drug Use: never Lives independently: Yes Household members: none Marital status: Current occupational status: disabled Do you think of yourself as: Straight/Heterosexual Current gender identity: Female Vitals/I&O/Wt Last Vital Signs Temp 99.1 F 01/21/24 14:29 Pulse 81 01/21/24 16:16 Resp 16 01/21/24 16:16 BP 140/79 01/21/24 18:36 Pulse Ox 93 01/21/24 16:16 O2 Del Method Room Air 01/21/24 16:16 Weight last 48 hrs Weight 152 lb Physical Exam Narrative: GENERAL: Patient is alert, awake and oriented x3. [] NECK: No jugular vein distension. [] HEENT: No cyanosis. No icterus. No pallor. [] HEART: Regular S1 and S2. No murmur, rub or gallop. [] LUNGS: Clear to auscultate bilaterally. [] CENTRAL NERVOUS SYSTEM: Grossly nonfocal. [] EXTREMITIES: Lower extremities with 1+ edema bilaterally. Data 01/22/24 04:07 01/22/24 04:07 A&P Assessment and plan (1) Coronary artery disease: Qualifiers: Coronary Disease-Associated Artery/Lesion type: [place] artery [place] vs. transplanted heart: [place] heart Associated angina: without angina Qualified Code(s): I25.10 - Atherosclerotic heart disease of [place] coronary artery without angina pectoris (2) Chest pain: (3) Hypertension: Qualifiers: Hypertension type: essential hypertension Qualified Code(s): I10 - Essential (primary) hypertension (4) Hyperlipidemia: Qualifiers: Hyperlipidemia type: mixed hyperlipidemia Qualified Code(s): E78.2 - Mixed hyperlipidemia (5) Diabetes mellitus: Qualifiers: Diabetes mellitus type: type 2 Diabetes mellitus chcf insulin use: without exterminator helper termite use Diabetes mellitus complication status: without complication Qualified Code(s): E11.9 - Type 2 diabetes mellitus without complications Plan Patient's chest pain symptoms have both typical and atypical features. However her blood pressure was very high at the time. Reported blood pressure up to 200. Could be related to hypertensive urgency. Will rule out ischemia with Lexiscan. Will also obtain echocardiogram. If EF is normal and stress test does not show ischemia, can manage her blood pressure and outpatient cardiology follow-up. Thank you for involving us with care of this patient. Please call with questions. Consult Attestations Medical Necessity Statement: Care not expected to cross 2 midnights. Coding Level of Care Code Acute Code for [facility] Diagnoses Coronary artery disease involving [place] coronary artery of [place] heart without angina pectoris I25.10 Coronary Disease-Associated Artery/Lesion type: [place] artery [place] vs. transplanted heart: [place] heart Associated angina: without angina Chest pain R07.9 Essential hypertension I10 Hypertension type: essential hypertension Mixed hyperlipidemia E78.2 Hyperlipidemia type: mixed hyperlipidemia Type 2 diabetes mellitus without complication, without long-term current use of insulin E11.9 Diabetes mellitus type: type 2 Diabetes mellitus exterminator helper termite insulin use: without chcf use Diabetes mellitus complication status: without complication
[2024-01-21 19:43] VITALS: BP 145/79; PULSE 79; O2SAT 92
[2024-01-21 20:06] VITALS: BMI 25.6
[2024-01-21 20:08] VITALS: BP 145/79; PULSE 81; O2SAT 92
[2024-01-21 20:36] LABS: Estmated Average Glucose 123; Hemoglobin A1C 5.9 % (4.0-6.0)
--- NOTE | 2024-01-21 20:44 | ECG_ITS ---
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
[2024-01-21 21:35] LABS: Troponin 5 6HR 15.39 ng/L (0-10)
[2024-01-21 21:38] LABS: Troponin 5 6HR Delta -2.61 ng/L (0-12)
[2024-01-21] MEDS: pantoprazole 40 mg SDV IVP (22:17)
[2024-01-21] MEDS: enoxaparin 80 mg/0.8 mL Syringe 70 MG SUBCUT (22:17)
[2024-01-21] MEDS: carbidopa-levodopa 25-100mg Tablet 1 EACH PO (22:17)
[2024-01-22 04:31] LABS: Eosinophils # 0.1 10^3/uL (0.0-0.8); Eosinophils % 1.4 %; Hematocrit 40.4 % (36-47); Lymphocytes # 1.3 10^3/uL (0.8-4.8); Lymphocytes % 32.1 %; Mean Corpuscular HGB Conc 31.9 g/dL (30-55); Mean Corpuscular Hemoglobin 29.3 pg (27-33); Mean Corpuscular Volume 91.8 fl (85-98); Monocytes # 0.7 10^3/uL (0.2-0.9); Monocytes % 15.8 %; Neutrophils # 2.07 10^3/uL (1.8-7.7); Neutrophils % 49.7 %; Nucleated Red Blood Cells % 0 %; Platelet Count 182 10^3/cmm (157-399); Red Cell Distribution Width 13.5 % (12.1-15.1); White Blood Count 4.17 10^3/uL (3.29-11.43)
[2024-01-22 04:54] LABS: Anion Gap 13.3 (5-19); Blood Urea Nitrogen 16 mg/dL (8-23); Calcium 8.2 mg/dL (8.5-10.5); Carbon Dioxide 24 mmol/L (22-29); Chloride 105 mmol/L (98-107); Creatinine Clr Calc Pharmacy 51.3528; Glucose 124 mg/dL (65-115); Magnesium 1.8 mg/dL (1.7-2.3); Osmolality Calculated 289 mOsm/kg (285-295); Potassium 4.3 mmol/L (3.5-5.1); Sodium 138 mmol/L (136-145)
--- NOTE | 2024-01-22 06:48 | PC.NURSE ---
0600 med not given due to pt going to nuc med
[2024-01-22] MEDS: regadenoson 0.4 Mg/5 ml Syringe IVP (07:08)
[2024-01-22] MEDS: aminophylline 25 mg/mL SDV 10 mL IVP (07:16)
[2024-01-22 07:24] VITALS: BP 180/68; PULSE 93
[2024-01-22 08:15] VITALS: BP 180/92
[2024-01-22] MEDS: clopidogrel 75 mg Tablet PO (08:15)
[2024-01-22] MEDS: losartan 50 mg Tablet 100 MG PO (08:15)
[2024-01-22] MEDS: sennosides-docusate Tablet 1 TAB PO (08:15)
[2024-01-22] MEDS: atorvastatin 40 mg Tablet 80 MG PO (08:15)
[2024-01-22] MEDS: aspirin 81 mg EC Tablet PO (08:15)
[2024-01-22] MEDS: carbidopa-levodopa 25-100mg Tablet 2 EACH PO ×2 (08:15→12:20)
[2024-01-22] MEDS: gabapentin 400 mg Capsule 800 MG PO (08:16)
[2024-01-22] MEDS: amlodipine 10 mg Tablet PO (08:16)
[2024-01-22] MEDS: pantoprazole 40 mg SDV IVP (08:16)
[2024-01-22] MEDS: enoxaparin 80 mg/0.8 mL Syringe 70 MG SUBCUT (08:16)
[2024-01-22 08:21] VITALS: BP 168/97; PULSE 83; RESP 26; TEMP 36.9; O2SAT 94
--- NOTE | 2024-01-22 10:10 | PC.CHAP ---
Pastoral Care Encounter/Spiritual Assessment Type of Contact [] Declined florist helper visit [] Patient/Family/Request visit [] Outpatient visit [] Follow-up visit [] Physician referral [] Code/Alert [x] Routine visit [] Staff referral [] Actively dying [] Patient sleeping [] Family support [] [] Out of room [] Palliative care [] [] Receiving care in room [] Pre-surgical visit [] Trauma [] Long length of stay [] ICU visit [] Other: Relational/Emotional Strength [x] Patient feels connected with others/family/visitors/staff [] Distress [] Loneliness/isolation [] Abandonment Spirituality of Patient [x] Person of Marisel [] Attends Sikh of their [place] [x] Believes in Prayer [] Reads Bible or Scientologist materials [] There are Spiritual issues to be addressed Grain Merchandiser Interventions [x] Prayer [x] Active listening [] Non-anxious presence [x] Spiritual/emotional support [] Crisis/trauma care [] Spiritual counseling [] Bereavement support [] Provided bereavement packet [] Provided Bible/devotional materials [] Provided toy/stuffed animal, coloring book to patient or family member [] Provided Communion [] Anointing/[place] [] Salvation [x] Completed spiritual assessment [] Other: Impact on Illness or Injury [] Angry [] Fearful [] Anxious [] Often cries [] Exhaustion [] Unable to work [] Unable to attend mandaen [] Unable to walk/stand [] Unable to read [] Unable to drive [] Unable to eat/drink [] Unable to sleep [] Unable to be with family [] Patient intubated [] Other: Summary Time spent with patient 5 min
[2024-01-22 11:13] VITALS: BP 134/74; PULSE 80; RESP 21; TEMP 36.6; O2SAT 92
--- NOTE | 2024-01-22 12:01 | PC.NURSE ---
Dr Lizama in to see patient. MD will make some changes to BP medications and is okay for discharge per cardiology.
--- NOTE | 2024-01-22 12:35 | PM.DCS ---
Discharge Providers Date of Admission: 01/21/24 18:08 Date of Discharge: January 22, 2024 Attending Provider at Admission: Fariha Chowdary MD Attending Provider at Discharge: Fariha Chowdary MD Primary Care Provider: Eric Rodriguez MD Diagnoses at Discharge Discharge Diagnosis (1) Unstable angina: Status: Resolved (2) Diabetes mellitus: Status: Chronic Qualifiers: Diabetes mellitus complication status: without complication Diabetes mellitus terminal block assembler insulin use: without terminal block assembler use Diabetes mellitus type: type 2 Qualified Code(s): E11.9 - Type 2 diabetes mellitus without complications (3) Hypothyroidism: Status: Acute Qualifiers: Hypothyroidism type: acquired Qualified Code(s): E03.9 - Hypothyroidism, unspecified (4) Hypertensive urgency: Status: Resolved Reason for Visit Reason for Visit: chest pain Hospital Course Hospital Course Patient presented with chest pain. She did take 1 dose of nitroglycerin and called EMS thereafter. Stress test was ordered. Echo did not show any wall motion abnormalities. Stress test revealed no evidence of ischemia. LV systolic function normal. Patient discharged home in stable condition. Physical Exam Narrative: Awake and alert Euvolemic No active chest pain GCS 15 Hemodynamically stable Pleasant cooperative Hypertensive Nonfocal neuroexam Discharge Data Studies Completed and Pending Completed Studies During Hospitalization Category Date Time Status XR chest 1V portable [id number] Urgent Exams 01/21/24 14:44 Completed NM lang perf SPECT r/s* [id number] Routine Nuc Med 01/22/24 17:52 Completed Pending at discharge Category Date Time Status Sestamibi Stress Test Request Routine Exams 01/21/24 17:52 Ordered CV. echo complete* [id number] Routine Ultrasound 01/22/24 19:46 Taken Radiology Impressions Chest X-Ray 01/21/24 14:44 IMPRESSION: No acute findings. Laboratory Results WBC 4.17 10^3/uL (3.29-11.43) 01/22/24 04:07 RBC 4.40 10^6/uL (3.85-5.65) 01/22/24 04:07 Hgb 12.90 g/dL (11.27-16.99) 01/22/24 04:07 Hct 40.4 % (36-47) 01/22/24 04:07 MCV 91.8 fl (85-98) 01/22/24 04:07 MCH 29.3 pg (27-33) 01/22/24 04:07 MCHC 31.9 g/dL (30-55) 01/22/24 04:07 RDW 13.5 % (12.1-15.1) 01/22/24 04:07 Plt Count 182 10^3/cmm (157-399) 01/22/24 04:07 MPV 10.0 fL (7.4-10.4) 01/22/24 04:07 Neut % (Auto) 49.7 % 01/22/24 04:07 Lymph % (Auto) 32.1 % 01/22/24 04:07 [place] % (Auto) 15.8 % 01/22/24 04:07 Eos % (Auto) 1.4 % 01/22/24 04:07 Baso % (Auto) 1.0 % 01/22/24 04:07 Neut # (Auto) 2.07 10^3/uL (1.8-7.7) 01/22/24 04:07 Lymph # (Auto) 1.3 10^3/uL (0.8-4.8) 01/22/24 04:07 [place] # (Auto) 0.7 10^3/uL (0.2-0.9) 01/22/24 04:07 Eos # (Auto) 0.1 10^3/uL (0.0-0.8) 01/22/24 04:07 Baso # (Auto) 0.0 10^3/uL (0.0-0.1) 01/22/24 04:07 Nucleated RBC % (auto) 0 % 01/22/24 04:07 Nucleated RBCs # 0.0 /100WBC 01/22/24 04:07 D-Dimer 0.95 ug/mLFEU (0-0.59) H 01/21/24 14:57 Sodium 138 mmol/L (136-145) 01/22/24 04:07 Potassium 4.3 mmol/L (3.5-5.1) 01/22/24 04:07 Chloride 105 mmol/L (98-107) 01/22/24 04:07 Carbon Dioxide 24 mmol/L (22-29) 01/22/24 04:07 Anion Gap 13.3 (5-19) 01/22/24 04:07 BUN 16 mg/dL (8-23) 01/22/24 04:07 Creatinine 0.9 mg/dL (0.5-0.9) 01/22/24 04:07 GFR Calculation Not Reportable 01/22/24 04:07 Glucose 124 mg/dL (65-115) H 01/22/24 04:07 Estimat Average Glucose 123 01/21/24 14:57 Hemoglobin A1c 5.9 % (4.0-6.0) 01/21/24 14:57 Calculated Osmolality 289 mOsm/kg (285-295) 01/22/24 04:07 Calcium 8.2 mg/dL (8.5-10.5) L 01/22/24 04:07 Magnesium 1.8 mg/dL (1.7-2.3) 01/22/24 04:07 Total Bilirubin 0.2 mg/dL (0.15-1.2) 01/21/24 14:57 AST 16 U/L (0-32) 01/21/24 14:57 ALT < 5 U/L (0-33) 01/21/24 14:57 Alkaline Phosphatase 65 U/L (35-105) 01/21/24 14:57 Troponin T Baseline 18 ng/L (0-10) H 01/21/24 14:57 Troponin T 120 Minute 15.06 ng/L (0-10) H 01/21/24 16:43 Delta Troponin T -2.94 ABS# (0-10) L 01/21/24 16:43 Troponin T Hi Sens 6Hr 15.39 ng/L (0-10) H 01/21/24 20:59 Troponin T Hi Sens 6Hr Delta -2.61 ng/L (0-12) L 01/21/24 20:59 C-Reactive Protein 3.0 mg/L (0.0-4.9) 01/22/24 04:07 NT-Pro-B Natriuret Pep 312 pg/mL (0-450) 01/21/24 14:57 Total Protein 6.4 g/dL (6.6-8.7) L 01/21/24 14:57 Albumin 4.0 g/dL (3.5-5.2) 01/21/24 14:57 Globulin 2.4 g/dL (1.3-4.6) 01/21/24 14:57 Vitals Last Vital Signs Temp 97.9 F 01/22/24 11:13 Pulse 80 01/22/24 11:13 Resp 21 H 01/22/24 11:13 BP 134/74 01/22/24 11:13 Pulse Ox 92 01/22/24 11:13 O2 Del Method Room Air 01/22/24 11:13 Discharge Plan Discharge Patient Disposition: Home Condition: Stable Prescriptions: Continued meloxicam 7.5 mg tablet 7.5 mg PO DAILY Qty: 30 2RF (DME) diabetic shoes with 3 pairs inserts See Rx Instructions .Route .MEDSUPPLY Qty: 1 0RF Rx Instructions: As directed HOME (DME) TLSO brace See Rx Instructions .Route .MEDSUPPLY Qty: 1 0RF Rx Instructions: As directed hydroxyzine HCl 25 mg tablet 25 mg PO .HS PRN (Reason: sleep) Qty: 30 2RF prednisone 5 mg tablet See Rx Instructions PO .COMPLEX PRN (Reason: joint pain flare) Qty: 30 1RF Rx Instructions: take 1-2 tabs daily for 3-7 days prn joint pain flare orally PRN; varenicline [Chantix Starting Month Box] 0.5 mg (11)- 1 mg (42) tablets,dose pack See Rx Instructions PO PER PKG DIR Qty: 53 0RF Rx Instructions: PO PER PKG DIR promethazine 12.5 mg tablet 12.5 mg PO TID PRN (Reason: nausea and vomiting) Qty: 90 0RF azelastine 137 mcg (0.1 %) spray,non-aerosol 2 spray intranasal BID Qty: 30 5RF Rx Instructions: administer into each nostril cetirizine 10 mg tablet 10 mg PO DAILY Qty: 30 2RF Breztri Aerosphere 160-9-4.8 mcg/actuation HFA aerosol inhaler 2 inh inhalation BID 30 Days Qty: 10.7 6RF ropinirole 2 mg tablet 2 mg PO BEDTIME Qty: 30 1RF albuterol sulfate [Ventolin HFA] 90 mcg/actuation HFA aerosol inhaler 2 puff inhalation QID PRN (Reason: Shortness Of Breath) Qty: 8.5 2RF levothyroxine 100 mcg tablet 100 mcg PO DAILY Qty: 30 6RF amlodipine 10 mg tablet 10 mg PO QAM Qty: 1 6RF atorvastatin [Lipitor] 80 mg tablet 80 mg PO DAILY Qty: 1 0RF leflunomide 10 mg tablet 10 mg PO DAILY Qty: 90 3RF metformin 500 mg tablet 500 mg PO DAILY Qty: 90 3RF clopidogrel 75 mg tablet 75 mg PO DAILY Qty: 90 1RF Ingrezza 80 mg capsule 80 mg PO DAILY Qty: 30 2RF propranolol 20 mg tablet 20 mg PO BID Qty: 60 2RF fenofibrate 54 mg tablet 54 mg PO DAILY MDD 1 Qty: 30 3RF gabapentin 800 mg tablet 800 mg PO TID MDD 3 Qty: 90 3RF hydroxyzine pamoate 25 mg capsule 25 mg PO Q8H PRN (Reason: itching) Qty: 30 0RF nitroglycerin [Nitrostat] 0.4 mg Tablet, Sublingual 0.4 mg SUBLINGUAL Q5M PRN (Reason: Chest Pain) Rx Instructions: do not exceed 3 doses per episode losartan 100 mg tablet 100 mg PO DAILY Qty: 30 0RF Trelegy Ellipta 200-62.5-25 mcg blister with device 1 inh INHALATION DAILY No Action carbidopa-levodopa 25-100 mg tablet 2 tab PO TID Qty: 180 5RF Rx Instructions: 2 with breakfast and lunch, 1 with dinner duloxetine [Cymbalta] 60 mg capsule,delayed release(DR/EC) 60 mg PO DAILY Qty: 30 2RF duloxetine [Cymbalta] 30 mg capsule,delayed release(DR/EC) 30 mg PO DAILY Qty: 30 3RF hydralazine 50 mg tablet 50 mg PO BID Qty: 60 4RF Discharge Orders: Discharge Order (Routine); Ordered 01/22/24 Ordered By: Fariha Chowdary Referrals: Eirc Rodriguez MD [Primary Care Provider] - 7-10 days (We have notified your physician's clinic of the need for a follow-up appointment to be scheduled. If you have not heard from them within the next 2 business days, please call them directly. ) Discharge Diet: Cardiac Discharge Activity: Resume usual activity Patient Instructions: Chest Pain (DC), Hypertensive Crisis (DC), Chest Pain Stoplight, Opioid Safety Discharge Attestations Time Spent in Discharge Care*: greater than 30 min Quality Metrics Clinical Quality Measures [ No reported AMI, CVA or VTE this stay] Coding Level of Care Code Acute Code for Chg Fwd Diagnoses Unstable angina I20.0 Type 2 diabetes mellitus without complication, without long-term current use of insulin E11.9 Diabetes mellitus complication status: without complication Diabetes mellitus terminal block assembler insulin use: without chcf use Diabetes mellitus type: type 2 Acquired hypothyroidism E03.9 Hypothyroidism type: acquired Hypertensive urgency I16.0
[2024-01-22 13:09] VITALS: BP 134/74; PULSE 80; RESP 21; TEMP 36.6; O2SAT 92
--- NOTE | 2024-01-22 13:40 | PC.NURSE ---
Patient discharged to home. Instructions provided regarding follow up information and medications Patient verbalized complete understanding. Patient taken by wheelchair to private vehicle with friend by side.
--- NOTE | 2024-01-22 17:52 | NMCV_ITS ---
NM lang perf SPECT r/s* [id number] Elyssa Daniels Age: 78 Gender: F : 1945 Exam Date: 01/22/2024 06:17 Ordering Phys: Jose F Leon MD Technologist: JEM Valle Exam Location: [facility] Indications: cp STRESS TEST Please see separate stress test report in [facility] for full findings IMAGE PROTOCOL Rest/Stress 1 Lexiscan Day Radiopharmaceutical Dose (mCi) Administration Site Administered by Rest: Tc-99m 10.7 IV Natasha Rivera, PHOTOGRAPH DEVELOPER Sestamibi Stress:Tc-99m 32.9 IV Natasha Rivera, PHOTOGRAPH DEVELOPER Sestamibi Rest: 22-Jan-2024 60 Discovery 630 Stress: 22-Jan-2024 30 Discovery 630 0.4mg Lexiscan. Images obtained in supine and prone position. SPECT RESULTS Technical Quality: Good Raw Data Analysis: Normal Image Corrections: No attenuation or motion correction applied Summed Stress Score: 0 Summed Rest Score: 3 Summed Difference Score: 0 PERFUSION FINDINGS SPECT images demonstrate homogeneous tracer distribution throughout the myocardium. FUNCTIONAL RESULTS (calculated via Gated SPECT) Stress Image LV EF (%): 74 Stress EDV (mL):58 TID: 1.04 Stress ESV (mL):15 FUNCTIONAL FINDINGS: There is normal left ventricular systolic function. IMPRESSIONS 1. Normal myocardial perfusion imaging with no evidence of ischemia 2. LV systolic function is normal Marco Lizama MD (Electronically Signed) Final Date: 22 January 2024 11:00 S
--- NOTE | 2024-01-22 19:46 | USCV_ITS ---
Elyssa Daniels Age: 78 Gender: F : 1945 Exam Date: 01/22/2024 10:01 Ordering Phys: Jose F Leon MD Technologist: Exam Location: [facility] [place] Indication: cp BP: 168 / 97 HR: 75 Rhythm: Sinus Technical Quality: Adequate MEASUREMENTS (Male / Female) Normal Values 2D ECHO LV Ejection Fraction MOD 4C 69.6 % LV Ejection Fraction MOD 2C 78.7 % LV Ejection Fraction 2C AL 79.0 % RA Systolic Volume 4C AL 24.8 ml RA Systolic Volume 4C MOD 24.7 ml IVC Diameter 1.6 cm DOPPLER MV Peak Velocity 92.0 cm/s MV Area PHT 2.5 cm squared Mitral E to A Ratio 0.8 TR Peak Velocity 217.0 cm/s TR Peak Gradient 18.8 mmHg TV Peak E Velocity 62.0 cm/s Right Atrial Pressure 3.0 mmHg Pulmonary Artery Systolic Pressu 21.8 mmHg PV Peak Velocity 137.0 cm/s FINDINGS Left Ventricle Normal left ventricular size, systolic function and wall thickness, with no regional wall motion abnormalities. Left ventricular ejection fraction is estimated at 60 %. Grade I/IV diastolic dysfunction (abnormal relaxation filling pattern), normal to mildly elevated filling pressures. Right Ventricle The right ventricle is normal in size and function. Right Atrium The right atrium is normal in size. Left Atrium The left atrium is normal in size. Mitral Valve Structurally normal mitral valve without significant stenosis or prolapse. There is no mitral regurgitation. Aortic Valve Aortic valve not well visualized, Probabbly normal , clinical correlation advised Tricuspid Valve Structurally normal tricuspid valve without significant stenosis or regurgitation. Pulmonary artery systolic pressure is normal. Pulmonic Valve Structurally normal pulmonic valve without significant stenosis. There is no pulmonic regurgitation. Pericardium Normal pericardium without effusion. Aorta Normal ascending aorta dimension. IVC The inferior vena cava appears normal. CONCLUSIONS Normal left ventricular size, systolic function and wall thickness, with no regional wall motion abnormalities. Left ventricular ejection fraction is estimated at 60 %. Grade I/IV diastolic dysfunction (abnormal relaxation filling pattern), normal to mildly elevated filling pressures. Aortic valve not well visualized, Probabbly normal , clinical correlation advised There is no pericardial effusion. Pulmonary artery systolic pressure is within normal limits. Right atrial pressure is around 5 mm of mercury. Jose F Cabrera MD (Electronically Signed) Final Date: 22 January 2024 17:35 S
== END 2024-01-22 13:40 | disposition home or self-care (01) ==
LOC: ER 16:55 → CSU 18:08
PROVIDERS: Internal Medicine; Physician Assistant; Admitting Provider Internal Medicine; Emergency Provider Family Medicine; PCP Family Medicine Adult Medicine; Visit Provider Internal Medicine
DX: I25.110 Atherosclerotic heart disease of native coronary artery with unstable angina pectoris (principal); E11.22 Type 2 diabetes mellitus with diabetic chronic kidney disease; I12.9 Hypertensive chronic kidney disease with stage 1 through stage 4 chronic kidney disease, or unspecified chronic kidney disease; N18.9 Chronic kidney disease, unspecified; E03.9 Hypothyroidism, unspecified; I16.0 Hypertensive urgency; Z95.5 Presence of coronary angioplasty implant and graft; E78.5 Hyperlipidemia, unspecified; J44.9 Chronic obstructive pulmonary disease, unspecified; F17.210 Nicotine dependence, cigarettes, uncomplicated
CPT/HCPCS: 36415; 71045; 78452; 80048; 80053; 83036; 83735; 83880; 84484; 85025; 85378; 86140; 93005; 93017; 93306; 96372; 96374; 96375; 99285; A9500; G0378; J0280; J0360; J1650; J2470; J2785

== ENCOUNTER → 2024-01-28 15:15 | Outpatient (BNVA) | payer MEDICARE, SELFPAY | PROVIDERS: PCP Family Medicine Adult Medicine | DX: J98.11 Atelectasis (principal); M19.012 Primary osteoarthritis, left shoulder; M19.011 Primary osteoarthritis, right shoulder; M47.894 Other spondylosis, thoracic region; R06.2 Wheezing; R06.02 Shortness of breath; J43.0 Unilateral pulmonary emphysema [MacLeod's syndrome] | CPT/HCPCS: 71046 ==

== ENCOUNTER → 2024-03-04 13:46 | Outpatient (BNVA) | payer MEDICARE, SELFPAY | PROVIDERS: PCP Family Medicine Adult Medicine; Visit Provider Internal Medicine Cardiovascular Disease | DX: I10 Essential (primary) hypertension (principal); I25.10 Atherosclerotic heart disease of native coronary artery without angina pectoris; J44.9 Chronic obstructive pulmonary disease, unspecified; F17.210 Nicotine dependence, cigarettes, uncomplicated; E78.5 Hyperlipidemia, unspecified; Z95.5 Presence of coronary angioplasty implant and graft | CPT/HCPCS: 99214 ==

== ENCOUNTER → 2024-03-18 09:39 | Outpatient (BNVA) | payer MEDICARE, SELFPAY | PROVIDERS: PCP Family Medicine Adult Medicine; Visit Provider Internal Medicine Rheumatology | DX: Z79.899 Other long term (current) drug therapy (principal); M05.79 Rheumatoid arthritis with rheumatoid factor of multiple sites without organ or systems involvement; R76.8 Other specified abnormal immunological findings in serum; M54.2 Cervicalgia; Z71.85 Encounter for immunization safety counseling | CPT/HCPCS: 99214 ==

== ENCOUNTER → 2024-03-26 13:20 | Outpatient (BNVA) | payer MEDICARE, SELFPAY | PROVIDERS: PCP Family Medicine Adult Medicine; Visit Provider Emergency Medicine | DX: R05.9 Cough, unspecified (principal); B34.9 Viral infection, unspecified | CPT/HCPCS: 87400; 87426 ==

== ENCOUNTER → 2024-04-18 14:24 | Outpatient (BNVA) | payer MEDICARE, SELFPAY | PROVIDERS: PCP Family Medicine; Visit Provider Specialist | DX: G24.4 Idiopathic orofacial dystonia (principal); G50.0 Trigeminal neuralgia | CPT/HCPCS: 64612; 99213; J0585 ==

== ENCOUNTER 2024-05-08 09:14 | Outpatient (CLI) | payer MEDICARE, SELFPAY ==
--- NOTE | 2024-05-08 09:30 | MM_ITS ---
WS: [id number] RIGHT 3D TOMOSYNTHESIS DIGITAL MAMMOGRAPHY WITH CAD CLINICAL INFORMATION: R breast cyst HISTORY: 6-month follow-up COMPARISON: 10/11/2023 TECHNIQUE: 3 views of the right breast were obtained. FINDINGS: Scattered fibroglandular densities of the right breast. Vascular calcification. Dystrophic calcificat ions RIGHT breast with oil cysts. Palpable marker with a tiny ovoid nodule similar to previous. Ultra sound is pending. ULTRASOUND BREAST RIGHT TECHNIQUE: Ultrasound right breast focused area of concern. CLINICAL INFORMATION: R breast cyst COMPARISON: 10/11/2023 FINDINGS: Ultrasound RIGHT breast 8 o'clock position in the area of palpable concern 7 cm from the nipple. Agai n seen is the shallow subcutaneous ovoid nodule with complex internal echogenic debris. This is uncha nged in appearance compared to previous measuring 6 x 5 x 2 mm. MM/MM diag RT tomosynthesis [id number] IMPRESSION: DENSITY: There are scattered areas of fibroglandular density. BI-RADS: 3 - Probably Benign. FOLLOW UP: 6 Month Follow-up Recommend 6-month follow-up RIGHT breast diagnostic mammography and ultrasound to confirm stability. Alternatively this could be resected surgically as previously mentioned. Ultras ound biopsy not recommended due to risk of rupture and infection
--- NOTE | 2024-05-08 10:00 | US_ITS ---
WS: [id number] RIGHT 3D TOMOSYNTHESIS DIGITAL MAMMOGRAPHY WITH CAD CLINICAL INFORMATION: R breast cyst HISTORY: 6-month follow-up COMPARISON: 10/11/2023 TECHNIQUE: 3 views of the right breast were obtained. FINDINGS: Scattered fibroglandular densities of the right breast. Vascular calcification. Dystrophic calcificat ions RIGHT breast with oil cysts. Palpable marker with a tiny ovoid nodule similar to previous. Ultra sound is pending. ULTRASOUND BREAST RIGHT TECHNIQUE: Ultrasound right breast focused area of concern. CLINICAL INFORMATION: R breast cyst COMPARISON: 10/11/2023 FINDINGS: Ultrasound RIGHT breast 8 o'clock position in the area of palpable concern 7 cm from the nipple. Agai n seen is the shallow subcutaneous ovoid nodule with complex internal echogenic debris. This is uncha nged in appearance compared to previous measuring 6 x 5 x 2 mm. US/US breast RT limited* [id number] IMPRESSION: DENSITY: There are scattered areas of fibroglandular density. BI-RADS: 3 - Probably Benign. FOLLOW UP: 6 Month Follow-up Recommend 6-month follow-up RIGHT breast diagnostic mammography and ultrasound to confirm stability. Alternatively this could be resected surgically as previously mentioned. Ultras ound biopsy not recommended due to risk of rupture and infection
== END 2024-05-08 09:15 | disposition home or self-care (01) ==
LOC: RAD 09:16
PROVIDERS: PCP Family Medicine; Visit Provider Family Medicine
DX: N60.01 Solitary cyst of right breast (principal); R92.321 Mammographic fibroglandular density, right breast; R92.1 Mammographic calcification found on diagnostic imaging of breast; N63.13 Unspecified lump in the right breast, lower outer quadrant
CPT/HCPCS: 76642; 77061; G0279

== ENCOUNTER 2024-05-19 14:15 | Inpatient (IN) | payer MEDICARE, MEDICAID, SELFPAY ==
[2024-05-19] VITALS (11 sets, daily range): BP systolic 116–150; BP diastolic 63–101; PULSE 92–137; RESP 18–23; TEMP 36.5–37.1; O2SAT 91–95; BMI 25.6
--- NOTE | 2024-05-19 14:21 | ECG_ITS ---
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 Measurements Intervals Aubrey Rate: 129 P: -22 SD: 151 QRS: -11 QRSD: 85 T: 85 QT: 292 QTc: 429 Interpretive Statements SINUS TACHYCARDIA Compared to ECG 01/21/2024 21:54:31 Sinus rhythm no longer present Electronically Signed On 05-22-2024 22:06:21 FOOD EDITOR by Marco Lizama M.D. [email or web address]
--- NOTE | 2024-05-19 14:24 | XR_ITS ---
WS: [id number] PORTABLE CHEST HISTORY: sob COMPARISON: 01/28/2024 Mild hyperinflation and increased lucency throughout both lungs. No areas of consolidation. Normal pu lmonary vasculature. No pleural effusion or pneumothorax. Cardiac size: Normal. Mediastinum/Aorta: Mild atherosclerosis aorta. Mild AC joint arthritis. XR/XR chest 1V portable [id number] IMPRESSION: Mild pulmonary hyperexpansion. No pneumonia.
--- NOTE | 2024-05-19 14:30 | ED_ITS ---
HPI - SOB/Dyspnea 2 General: Chief Complaint: Shortness of Breath/Dyspnea Stated Complaint: difficulty breathing, tachy Time Seen by Provider: 05/19/24 14:19 Source: patient and EMS Mode of arrival: EMS Limitations: no limitations History of Present Illness: HPI Narrative: 78-year-old female states she has been h aving increased shortness of breath along with wheezing for the last week. Patient states that dyspnea is worse with exertion does have a history of COPD. She denies any fevers that she has increased wheezing patient given breathing treatment Solu-Medrol and route she is currently requiring 4 L oxygen she states she does not wear oxygen at home. Associated symptoms: Deny abdominal pain, chest pain, fever(s), nausea or vomiting Related Data Home Medications Medication Instructions Recorded Confirmed nitroglycerin 0.4 mg sublingual 0.4 mg sublingual Q5M PRN Chest 09/06/22 05/19/24 tablet (Nitrostat) Pain duloxetine 30 mg capsule,delayed 30 mg PO DAILY 05/19/24 05/19/24 release meloxicam 7.5 mg tablet 7.5 mg PO DAILY 05/19/24 05/19/24 ropinirole 2 mg tablet 2 mg PO QPM 05/19/24 05/19/24 Previous Rx's Medication Instructions Recorded diabetic shoes with 3 pairs inserts #1 ea 05/22/22 losartan 100 mg tablet 100 mg PO DAILY #30 tabs 09/07/22 TLSO brace #1 ea 11/30/22 hydroxyzine HCl 25 mg tablet 25 mg PO .HS PRN sleep #30 tabs 04/17/23 promethazine 12.5 mg tablet 12.5 mg PO TID PRN nausea and 10/24/23 vomiting #90 tabs amlodipine 10 mg tablet 10 mg PO QAM blood thinner #1 tab 12/25/23 leflunomide 10 mg tablet 10 mg PO DAILY #90 tabs 12/25/23 metformin 500 mg tablet 500 mg PO DAILY #90 tabs 12/25/23 carbidopa 25 mg-levodopa 100 mg 2 tab PO TID #180 tabs 01/23/24 tablet hydralazine 50 mg tablet 50 mg PO BID #60 tabs 01/23/24 levothyroxine 100 mcg tablet 100 mcg PO DAILY thyroid #30 tabs 01/30/24 cetirizine 10 mg tablet 10 mg PO DAILY allergies #30 tabs 02/18/24 budesonide 160 mcg-glycopyr 9 2 inh inhalation BID 30 days #10.7 03/06/24 mcg-formot 4.8 mcg/actuation HFA grams inhaler (Breztri Aerosphere) propranolol 20 mg tablet 20 mg PO BID #60 tabs 03/24/24 albuterol sulfate 2.5 mg/3 mL 2.5 mg (3 mL) inhalation QID PRN 04/14/24 (0.083 %) solution for nebulization shortness of breath or wheezing #180 mL nebulizers #1 ea 04/14/24 atorvastatin 80 mg tablet (Lipitor) 80 mg PO DAILY cholesterol #90 tabs 04/15/24 duloxetine 60 mg capsule,delayed 60 mg PO DAILY #30 caps 04/18/24 release (Cymbalta) valbenazine 80 mg capsule 80 mg PO DAILY #30 caps 04/28/24 (Ingrezza) fenofibrate 54 mg tablet 54 mg PO DAILY Cholesterol #30 tabs 05/05/24 gabapentin 800 mg tablet 800 mg PO TID Neuropathy #90 tabs 05/05/24 mirtazapine 15 mg tablet (Remeron) 15 mg PO .HS #30 tabs 05/05/24 albuterol sulfate 90 mcg/actuation 2 puff inhalation QID PRN 05/19/24 aerosol inhaler (Ventolin HFA) Shortness Of Breath #8.5 grams clopidogrel 75 mg tablet 75 mg PO DAILY #90 tabs 05/19/24 doxycycline hyclate 100 mg capsule 100 mg PO BID 10 days #20 caps 05/19/24 ondansetron 4 mg disintegrating 4 mg PO Q8H PRN nausea and 05/19/24 tablet vomiting #30 tabs Allergies Allergy/AdvReac Type Severity Reaction Status Date / Time cephalexin [From Keflex] Allergy Mild ADR-Itching Verified 05/19/24 11:26 lamotrigine [From Lamictal] Allergy ALGY-Rash Verified 05/19/24 11:26 Review of Systems 2 Const: Denies: fever(s), chills, body aches or change in appetite ENMT: Denies: throat pain or dental pain Card: Denies: chest pain Resp: Reports: dyspnea, non-productive cough and wheezing GI: Denies: abdominal pain, nausea, vomiting or diarrhea Musc: Denies: neck pain or back pain Skin/Breast: Denies: rash Neuro: Denies: headache(s) PFSH ED 2 PFSH: Medical History Wheezing Nicotine dependence, cigarettes, in remission Cyst of breast, right, benign solitary Hip arthritis SS-A antibody positive Incidental pulmonary nodule, > 3mm and < 8mm Allergic rhinitis due to allergen Alcohol use disorder in remission Cannabis use disorder, mild, in sustained remission, abuse Amphetamine use disorder, moderate, in sustained remission Coronary artery disease Patient with stents High risk medication use Seropositive rheumatoid arthritis of multiple sites Diabetes mellitus Hyperlipidemia Hypertension Hypothyroidism Hyponatremia Major depressive disorder, recurrent, in partial remission Trigeminal neuralgia Psychiatric care Rheumatoid arthritis ZAY positive Dyspnea on exertion Chronic kidney disease (CKD) Chronic obstructive pulmonary disease Tardive dyskinesia Bipolar disorder, in partial remission, most recent episode manic Surgical History Hx of bilateral cataract extraction History of colonoscopy with polypectomy (~04/20/20) 2017 History of coronary angioplasty with insertion of stent 2006: 2 stents. 2008: 2 stents. History of hand surgery Repair right thumb fracture History of back surgery (01/17/13) History of bilateral breast reduction surgery History of bilateral tubal ligation History of dilation and curettage (~1982) History of bladder surgery (~1989) Vaginal Urethral sling with possible anchors . Performed by Dr. Salas at [facility] [place]. History of hemorrhoidectomy History of cholecystectomy History of vaginal hysterectomy Still has ovaries. Performed in [place], [place]. Performed due to bleeding. 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 Do you think of yourself as: Straight/Heterosexual Current gender identity: Female Physical Exam 2 Const: COMMON NORMALS: no acute distress, patient oriented x3 and healthy appearing HENMT: COMMON NORMALS: normocephalic and atraumatic HEAD & SCALP: n ormocephalic and atraumatic Eye: COMMON NORMALS: conjunctivae normal CONJUNCTIVA: Yes conjunctivae normal Neck/C-Spine: COMMON NORMALS: full ROM and supple Chest: COMMONS NORMALS: normal inspection of the chest Resp: COMMON NORMALS: No retractions and No use of accessory muscles EFFORT & INSPECTION: Yes audible wheezes Cardio: COMMON NORMALS: regular rate, regular rhythm and No murmurs present (Cardio) RATE: regular rate RHYTHM: regular rhythm Extremity: COMMON NORMALS: normal to inspection and full ROM Neuro: COMMON NORMALS: patient oriented x3, moves all extremities and no focal motor deficits Psych: COMMON NORMALS: mental status grossly normal, Normal thought process present and cooperative THOUGHT PROCESS: Normal thought process present Skin: COMMON NORMALS: no rashes or lesions noted and no wounds GENERAL SKIN EXAM: no rashes or lesions noted Course 2 Vital Signs: Vital signs: Vital Signs Pulse Rate 137 H 05/19/24 14:51 Respiratory Rate 18 05/19/24 14:36 Blood Pressure 139/101 05/19/24 14:51 Pulse Oximetry 94 05/19/24 14:51 Oxygen Delivery Me thod Nasal Cannula 05/19/24 14:51 Oxygen Flow Rate 4 05/19/24 14:51 MDM - SOB/Dyspnea Medical Decision Making Patient presents here with shortness of breath she is hypoxic here requiring 3 to 4 L of oxygen she did test positive for flu a she is continue to require oxygen after breathing treatments and steroids I spoke to hospice will admit this time. Medical Records I reviewed the patient's medical records. Lab Data I reviewed the patient's lab results. 05/19/24 14:29 05/19/24 14:29 Labs/Radiology: Radiology Impressions Chest X-Ray 05/19/24 14:24 IMPRESSION: Mild pulmonary hyperexpansion. No pneumonia. Laboratory Results WBC 5.68 10^3/uL (3.29-11.43) 05/19/24 14:29 RBC 4.91 10^6/uL (3.85-5.65) 05/19/24 14:29 Hgb 13.40 g/dL (11.27-16.99) 05/19/24 14:29 Hct 43.3 % (36-47) 05/19/24 14: MCV 88.2 fl (85-98) 05/19/24 14:29 MCH 27.3 pg (27-33) 05/19/24 14: MCHC 30.9 g/dL (30-55) 05/19/24 14: RDW 15.3 % (12.1-15.1) H 05/19/24 14:29 Plt Count 227 10^3/cmm (157-399) 05/19/24 14: MPV 9.6 fL (7.4-10.4) 05/19/24 14: Neut % (Auto) 77.9 % 05/19/24 14: Lymph % (Auto) 11.3 % 05/19/24 14: [place] % (Auto) 9.5 % 05/19/24 14: Eos % (Auto) 0.4 % 05/19/24 14:29 Baso % (Auto) 0.7 % 05/19/24 14: Neut # (Auto) 4.43 10^3/uL (1.8-7.7) 05/19/24 14:29 Lymph # (Auto) 0.6 10^3/uL (0.8-4.8) L 05/19/24 14: [place] # (Auto) 0.5 10^3/uL (0.2-0.9) 05/19/24 14: Eos # (Auto) 0.0 10^3/uL (0.0-0.8) 05/19/24 14: Baso # (Auto) 0.0 10^3/uL (0.0-0.1) 05/19/24 14: Nucleated RBC % (auto) 0 % 05/19/24 14: Nucleated RBCs # 0.0 /100WBC 05/19/24 14: Specimen Type Arterial 05/19/24 14:21 Sample Site Radial, right 05/19/24 14:21 ABG pH 7.39 (7.35-7.45) 05/19/24 14:21 ABG pCO2 38.1 mmHg (35-45) 05/19/24 14:21 ABG pO2 68.9 mmHg (80.0-100.0) L 05/19/24 14:21 ABG HCO3 23.0 mmol/L (22-26) 05/19/24 14:21 ABG Base Excess -1.7 mmol/L (-2.0-2.0) 05/19/24 14:21 Donn Test Pos 05/19/24 14:21 Hematocrit 42.1 % (37-47) 05/19/24 14:21 Hgb O2 Saturation 90.0 % (95-100) L 05/19/24 14:21 Carboxyhemoglobin 2.9 %THgb (0.4-20.1) 05/19/24 14:21 Methemoglobin 1.1 % (0.4-1.5) 05/19/24 14:21 Total Hemoglobin 13.7 g/dL (12-16) 05/19/24 14:21 O2 Delivery Device Nc 05/19/24 14:21 O2 Liters/Min 4.0 % 05/19/24 14:21 Service Station Helper ID [place] 05/19/24 14:21 Sodium 133 mmol/L (136-145) L 05/19/24 14:29 Potassium 4.2 mmol/L (3.5-5.1) 05/19/24 14:29 Chloride 97 mmol/L (98-107) L 05/19/24 14:29 Carbon Dioxide 23 mmol/L (22-29) 05/19/24 14:29 Anion Gap 17.2 (5-19) 05/19/24 14:29 BUN 11 mg/dL (8-23) 05/19/24 14:29 Creatinine 1.0 mg/dL (0.5-0.9) H 05/19/24 14:29 GFR Calculation Not Reportable 05/19/24 14:29 Glucose 130 mg/dL (65-115) H 05/19/24 14:29 Calculated Osmolality 277 mOsm/kg (285-295) L 05/19/24 14:29 Calcium 8.7 mg/dL (8.5-10.5) 05/19/24 14:29 Total Bilirubin 0.2 mg/dL (0.15-1.2) 05/19/24 14:29 AST 17 U/L (0-32) 05/19/24 14:29 ALT < 5 U/L (0-33) 05/19/24 14:29 Alkaline Phosphatase 58 U/L (35-105) 05/19/24 14:29 Troponin T Baseline 18 ng/L (0-10) H 05/19/24 14:29 NT-Pro-B Natriuret Pep 405 pg/mL (0-450) 05/19/24 14:29 Total Protein 6.7 g/dL (6.6-8.7) 05/19/24 14:29 Albumin 3.8 g/dL (3.5-5.2) 05/19/24 14:29 Globulin 2.9 g/dL (1.3-4.6) 05/19/24 14:29 Coronavirus (PCR) Negative (Negative) 05/19/24 14:44 Influenza A (PCR) Positive (Negative) 05/19/24 14:44 Influenza Type B (PCR) Negative (Negative) 05/19/24 14:44 RSV (PCR) Negative (Negative) 05/19/24 14:44 All radiology interpretation(s) finalized by discharge EKG Data EKG 1: I personally reviewed and interpreted this EKG as follows: EKG Interpretation Date: 05/19/24 EKG interpretation time: 14:21 Interpretation: sinus tach hr [address] or t wave abnormalities qrs 85 qtc 368 Discharge Plan Discharge Patient Disposition: Admitted As Inpatient Clinical Impression: Influenza A, Acute respiratory failure with hypoxia Condition: Stable Prescriptions: No Action doxycycline hyclate 100 mg capsule 100 mg PO BID 10 Days Qty: 20 0RF (DME) diabetic shoes with 3 pairs inserts See Rx Instructions .Route .MEDSUPPLY Qty: 1 0RF Rx Instructions: As directed HOME (DME) TLSO brace See Rx Instructions .Route .MEDSUPPLY Qty: 1 0RF Rx Instructions: As directed hydroxyzine HCl 25 mg tablet 25 mg PO .HS PRN (Reason: sleep) Qty: 30 2RF (DME) nebulizers Misc See Rx Instructions .Route Qty: 1 0RF Rx Instructions: Nebulizer with tubing kit to use as directed albuterol sulfate 2.5 mg /3 mL (0.083 %) solution for nebulization 2.5 mg inhalation QID PRN (Reason: shortness of breath or wheezing) Qty: 180 3RF promethazine 12.5 mg tablet 12.5 mg PO TID PRN (Reason: nausea and vomiting) Qty: 90 0RF amlodipine 10 mg tablet 10 mg PO QAM Qty: 1 6RF leflunomide 10 mg tablet 10 mg PO DAILY Qty: 90 3RF metformin 500 mg tablet 500 mg PO DAILY Qty: 90 3RF carbidopa-levodopa 25-100 mg tablet 2 tab PO TID Qty: 180 5RF Rx Instructions: 2 with breakfast and lunch, 1 with dinner hydralazine 50 mg tablet 50 mg PO BID Qty: 60 4RF levothyroxine 100 mcg tablet 100 mcg PO DAILY Qty: 30 6RF cetirizine 10 mg tablet 10 mg PO DAILY Qty: 30 3RF Breztri Aerosphere 160-9-4.8 mcg/actuation HFA aerosol inhaler 2 inh inhalation BID 30 Days Qty: 10.7 6RF propranolol 20 mg tablet 20 mg PO BID Qty: 60 2RF atorvastatin [Lipitor] 80 mg tablet 80 mg PO DAILY Qty: 90 1RF duloxetine [Cymbalta] 60 mg capsule,delayed release(DR/EC) 60 mg PO DAILY Qty: 30 2RF Ingrezza 80 mg capsule 80 mg PO DAILY Qty: 30 2RF gabapentin 800 mg tablet 800 mg PO TID MDD 3 Qty: 90 3RF fenofibrate 54 mg tablet 54 mg PO DAILY MDD 1 Qty: 30 3RF mirtazapine [Remeron] 15 mg tablet 15 mg PO .HS Qty: 30 1RF ondansetron 4 mg tablet,disintegrating 4 mg PO Q8H PRN (Reason: nausea and vomiting) Qty: 30 0RF clopidogrel 75 mg tablet 75 mg PO DAILY Qty: 90 1RF albuterol sulfate [Ventolin HFA] 90 mcg/actuation HFA aerosol inhaler 2 puff inhalation QID PRN (Reason: Shortness Of Breath) Qty: 8.5 2RF nitroglycerin [Nitrostat] 0.4 mg Tablet, Sublingual 0.4 mg SUBLINGUAL Q5M PRN (Reason: Chest Pain) Rx Instructions: do not exceed 3 doses per episode losartan 100 mg tablet 100 mg PO DAILY Qty: 30 0RF meloxicam 7.5 mg tablet 7.5 mg PO DAILY Rx Instructions: TAKE ONE TABLET BY MOUTH DAILY ropinirole 2 mg tablet 2 mg PO QPM Rx Instructions: TAKE ONE TABLET BY MOUTH AT BEDTIME duloxetine 30 mg capsule,delayed release(DR/EC) 30 mg PO DAILY Rx Instructions: TAKE ONE CAPSULE BY MOUTH DAILY Referrals: Ignacia Araujo MD [Primary Care Provider] - Coding Level of Care Code ED Business Analysis Consultant for Aicha Jean Baptiste
[2024-05-19 14:32] LABS: ABG PCO2 38.1 mmHg (35-45); ABG PH Result 7.39 (7.35-7.45); Arterial Blood Gas Hematocrit 42.1 % (37-47); Base Excess ABG -1.7 mmol/L (-2.0-2.0); Blood Gas Allen Test Pos; Blood Gas Operator Identificat WALCI; Blood Gas Sample Site Radial, right; Blood Gas Sample Type Arterial; Carboxyhemoglobin 2.9 %THgb (0.4-20.1); Methemoglobin 1.1 % (0.4-1.5); Oxygen Device NC; PO2 ABG 68.9 mmHg (80.0-100.0); Total Hemoglobin 13.7 g/dL (12-16)
[2024-05-19 14:35] LABS: Basophils % 0.7 %; Eosinophils % 0.4 %; Hematocrit 43.3 % (36-47); Lymphocytes # 0.6 10^3/uL (0.8-4.8); Lymphocytes % 11.3 %; Mean Corpuscular HGB Conc 30.9 g/dL (30-55); Mean Corpuscular Hemoglobin 27.3 pg (27-33); Mean Corpuscular Volume 88.2 fl (85-98); Mean Platelet Volume 9.6 fL (7.4-10.4); Monocytes # 0.5 10^3/uL (0.2-0.9); Monocytes % 9.5 %; Neutrophils # 4.43 10^3/uL (1.8-7.7); Neutrophils % 77.9 %; Nucleated Red Blood Cells % 0 %; Platelet Count 227 10^3/cmm (157-399); Red Blood Count 4.91 10^6/uL (3.85-5.65); Red Cell Distribution Width 15.3 % (12.1-15.1); White Blood Count 5.68 10^3/uL (3.29-11.43)
[2024-05-19] MEDS: ipratropium-albuterol 3 mL Neb INHALATION (14:40)
[2024-05-19 14:52] LABS: Troponin(5th) Baseline 18 ng/L (0-10)
[2024-05-19 15:35] LABS: Covid PCR NEGATIVE (Negative); Influenza A POSITIVE (Negative); Influenza B NEGATIVE (Negative); Respiratory Syncytial Virus Ce NEGATIVE (Negative)
[2024-05-19 15:35] LABS: Alanine Aminotransferase < 5 U/L (0-33); Albumin Level 3.8 g/dL (3.5-5.2); Alkaline Phosphatase 58 U/L (35-105); Anion Gap 17.2 (5-19); Aspartate Amino Transferase 17 U/L (0-32); Blood Urea Nitrogen 11 mg/dL (8-23); Calcium 8.7 mg/dL (8.5-10.5); Carbon Dioxide 23 mmol/L (22-29); Chloride 97 mmol/L (98-107); Creatinine Clr Calc Pharmacy 46.2175; Globulin 2.9 g/dL (1.3-4.6); Glucose 130 mg/dL (65-115); NT Pro B Type Natriuretic Pept 405 pg/mL (0-450); Osmolality Calculated 277 mOsm/kg (285-295); Potassium 4.2 mmol/L (3.5-5.1); Sodium 133 mmol/L (136-145); Total Bilirubin 0.2 mg/dL (0.15-1.2); Total Protein 6.7 g/dL (6.6-8.7)
--- NOTE | 2024-05-19 16:16 | PM.HP ---
Providers/Chief Complaint Primary Care Provider: Ignacia Araujo MD Chief Complaint: difficulty breathing, tachy History of Present Illness Elyssa Daniels is a 78 year old female with past medical history of COPD, CAD with PCI, Parkinson's, hypertension, hyperlipidemia presents to the ER today because of difficulty in breathing, central chest pain which was sharp in nature with cough for more than 2 days. Patient denies any sick contacts. Denies any nausea counting, headache or dizziness. Oral intake has been limited. On arrival to the ER patient was found to be tachycardic with heart rate up to 130s, found to be in sinus rhythm. Was found to be flu positive. Review of Systems General: Reports: 10 or more systems reviewed and unremarkable except in HPI and below Const: Denies: fever(s), chills, body aches, change in appetite, change in weight, malaise, night sweats, diaphoresis, change in sleep pattern, daytime sleepiness or snoring Eyes: Denies: change in vision, blurry vision, photophobia, eye discomfort or eye discharge ENMT: Denies: throat pain, enlarged tonsils, hoarseness, mouth pain, oral sores, dry mouth, tinnitus, nasal congestion or post nasal drip Card: Denies: chest pain, palpitations, irregular heart rhythm, edema, swelling of feet/ankles, lightheadedness, syncope, pre-syncope, dyspnea on exertion, orthopnea, leg pain with exertion or acrocyanosis Resp: Denies: dyspnea, productive cough, non-productive cough, wheezing, stridor, pain on inspiration, change in phlegm color, hemoptysis or chest congestion GI: Denies: abdominal pain, nausea, vomiting, hematemesis, coffee ground emesis, dysphagia, heartburn, diarrhea, constipation, bloating, GI cramping, change in bowel habits, pain on defecation, hematochezia or melena : Denies: flank pain, dysuria, urinary frequency, urinary urgency, urinary hesitancy, nocturia or hematuria Musc: Denies: neck pain, back pain, extremity pain, joint pain, joint swelling, joint redness, joint stiffness or limited range of motion Neuro: Denies: headache(s), numbness in extremities, weakness in extremities, sensory changes, lack of coordination, difficulty walking, frequent falls, dizziness, vertigo, confusion, Slurred speech present, difficulty communicating thoughts or seizure-like activity Psych: Denies: anxiety, depression, mood swings, panic attacks, hopelessness or irritability Endo: Denies: polyuria, polydipsia, tired all the time, cold intolerance, excessive sweating, flushing or heat intolerance Kenny/Lymph: Denies: easy bruising or easy bleeding All/Imm: Denies: tongue swelling, facial swelling or acute wheezing Medications/Allergies Home Medications Medication Instructions Recorded Confirmed Last Taken Type diabetic shoes with 3 pairs inserts #1 ea 05/22/22 05/19/24 Unknown Rx nitroglycerin 0.4 mg sublingual 0.4 mg sublingual Q5M PRN Chest 09/06/22 05/19/24 Unknown History tablet (Nitrostat) Pain losartan 100 mg tablet 100 mg PO DAILY #30 tabs 09/07/22 05/19/24 05/19/24 Rx TLSO brace #1 ea 11/30/22 05/19/24 Unknown Rx hydroxyzine HCl 25 mg tablet 25 mg PO .HS PRN sleep #30 tabs 04/17/23 05/19/24 05/19/24 Rx promethazine 12.5 mg tablet 12.5 mg PO TID PRN nausea and 10/24/23 05/19/24 05/19/24 Rx vomiting #90 tabs amlodipine 10 mg tablet 10 mg PO QAM blood thinner #1 tab 12/25/23 05/19/24 05/19/24 Rx leflunomide 10 mg tablet 10 mg PO DAILY #90 tabs 12/25/23 05/19/24 05/19/24 Rx metformin 500 mg tablet 500 mg PO DAILY #90 tabs 12/25/23 05/19/24 05/19/24 Rx carbidopa 25 mg-levodopa 100 mg 2 tab PO TID #180 tabs 01/23/24 05/19/24 05/19/24 Rx tablet hydralazine 50 mg tablet 50 mg PO BID #60 tabs 01/23/24 05/19/24 05/19/24 Rx levothyroxine 100 mcg tablet 100 mcg PO DAILY thyroid #30 tabs 01/30/24 05/19/24 05/19/24 Rx cetirizine 10 mg tablet 10 mg PO DAILY allergies #30 tabs 02/18/24 05/19/2405/19/25 Rx budesonide 160 mcg-glycopyr 9 2 inh inhalation BID 30 days #10.7 03/06/24 05/19/24 05/19/24 Rx mcg-formot 4.8 mcg/actuation HFA grams inhaler (Breztri Aerosphere) propranolol 20 mg tablet 20 mg PO BID #60 tabs 03/24/24 05/19/24 05/19/24 Rx albuterol sulfate 2.5 mg/3 mL 2.5 mg (3 mL) inhalation QID PRN 04/14/24 05/19/24 05/19/24 Rx (0.083 %) solution for nebulization shortness of breath or wheezing #180 mL nebulizers #1 ea 04/14/24 05/19/24 Unknown Rx atorvastatin 80 mg tablet (Lipitor) 80 mg PO DAILY cholesterol #90 tabs 04/15/24 05/19/24 05/19/24 Rx duloxetine 60 mg capsule,delayed 60 mg PO DAILY #30 caps 04/18/24 05/19/24 05/19/24 Rx release (Cymbalta) valbenazine 80 mg capsule 80 mg PO DAILY #30 caps 04/28/24 05/19/24 05/19/24 Rx (Ingrezza) fenofibrate 54 mg tablet 54 mg PO DAILY Cholesterol #30 tabs 05/05/24 05/19/24 05/19/24 Rx gabapentin 800 mg tablet 800 mg PO TID Neuropathy #90 tabs 05/05/24 05/19/24 05/19/24 Rx mirtazapine 15 mg tablet (Remeron) 15 mg PO .HS #30 tabs 05/05/24 05/19/24 05/19/24 Rx albuterol sulfate 90 mcg/actuation 2 puff inhalation QID PRN 05/19/24 05/19/24 05/19/24 Rx aerosol inhaler (Ventolin HFA) Shortness Of Breath #8.5 grams clopidogrel 75 mg tablet 75 mg PO DAILY #90 tabs 05/19/24 05/19/24 05/19/24 Rx doxycycline hyclate 100 mg capsule 100 mg PO BID 10 days #20 caps 05/19/24 05/19/24 05/19/24 Rx duloxetine 30 mg capsule,delayed 30 mg PO DAILY 05/19/24 05/19/24 05/19/24 History release meloxicam 7.5 mg tablet 7.5 mg PO DAILY 05/19/24 05/19/24 05/19/24 History ondansetron 4 mg disintegrating 4 mg PO Q8H PRN nausea and 05/19/24 05/19/24 Unknown Rx tablet vomiting #30 tabs ropinirole 2 mg tablet 2 mg PO QPM 05/19/24 05/19/24 05/19/24 History Allergies Allergy/AdvReac Type Severity Reaction Status Date / Time cephalexin [From Keflex] Allergy Mild ADR-Itching Verified 05/19/24 11:26 lamotrigine [From Lamictal] Allergy ALGY-Rash Verified 05/19/24 11:26 PFSH Acute PFSH: Medical History Wheezing Nicotine dependence, cigarettes, in remission Cyst of breast, right, benign solitary Hip arthritis SS-A antibody positive Incidental pulmonary nodule, > 3mm and < 8mm Allergic rhinitis due to allergen Alcohol use disorder in remission Cannabis use disorder, mild, in sustained remission, abuse Amphetamine use disorder, moderate, in sustained remission Coronary artery disease Patient with stents High risk medication use Seropositive rheumatoid arthritis of multiple sites Diabetes mellitus Hyperlipidemia Hypertension Hypothyroidism Hyponatremia Major depressive disorder, recurrent, in partial remission Trigeminal neuralgia Psychiatric care Rheumatoid arthritis ZAY positive Dyspnea on exertion Chronic kidney disease (CKD) Chronic obstructive pulmonary disease Tardive dyskinesia Bipolar disorder, in partial remission, most recent episode manic Surgical History Hx of bilateral cataract extraction History of colonoscopy with polypectomy (~04/20/20) 2017 History of coronary angioplasty with insertion of stent 2006: 2 stents. 2008: 2 stents. History of hand surgery Repair right thumb fracture History of back surgery (01/17/13) History of bilateral breast reduction surgery History of bilateral tubal ligation History of dilation and curettage (~1982) History of bladder surgery (~1989) Vaginal Urethral sling with possible anchors . [place] [facility] [place] of hemorrhoidectomy History of cholecystectomy History of vaginal hysterectomy Still has ovaries. Performed in [place], [place]. Performed due to bleeding. 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 Do you think of yourself as: Straight/Heterosexual Current gender identity: Female Vitals/I&O/Wt Last Vital Signs Pulse 137 H 05/19/24 14:51 Resp 18 05/19/24 14:36 BP 139/101 05/19/24 14:51 Pulse Ox 94 05/19/24 14:51 O2 Del Method Nasal Cannula 05/19/24 14:51 O2 Flow Rate 4 05/19/24 14:51 Weight last 48 hrs Weight 69.853 kg Physical Exam Narrative: General: No acute distress, AO x3, dehydrated, sick appearing HEENT: PERRLA, pupils bilaterally equal and reactive Chest: Normal vesicular breath sounds, no added sounds, equal good air entry bilaterally CVS: S1-S2 regular, no murmurs, tachycardia, no gallops, no rubs Abdomen: Soft, nontender, no organomegaly, bowel sounds present Neuro: No focal deficits, no facial deformity, AO x3, power 5/5 in all limbs Data 05/19/24 14:29 05/19/24 14:29 A&P Assessment and plan (1) Acute respiratory failure with hypoxia: Most likely in setting of influenza. At baseline not on oxygen. Currently requiring 4 L. Oxygen supplementation keeping saturation over 90%. Check procalcitonin, D-dimer, MRSA swab, proBNP. If D-dimer is elevated will plan for CTA. Concerns for PE because of new hypoxia, tachycardia, central chest pain. Solu-Medrol 40 mg every 6 hourly. Ipratropium, Xopenex every 6 hour, Pulmicort twice daily. Low concerns for superimposed bacterial infection for now. Empirically start on oral Levaquin 750 mg daily. Check sputum culture (2) Influenza A: Supportive treatment as above. Tamiflu 75 mg twice daily. Will plan for 5-day course. (3) Hypertension: Goal blood pressure less than 140/90 mmHg. For now continue with home dose of hydralazine 50 mg twice daily, amlodipine 10 mg oral daily, switch propranolol 20 mg twice daily to metoprolol 25 mg twice daily given extensive tachycardia. Will uptitrate as for goal blood pressures. Holding off on losartan given mild DAKSHA and possible need for CTA. Qualifiers: Hypertension type: essential hypertension Qualified Code(s): I10 - Essential (primary) hypertension (4) Coronary artery disease: Complaining of central chest pain. Cycle troponins. Check A1c, lipid panel. For now continue with home dose of statin, baby aspirin. Last echocardiogram from 02/06 showed an EF of 60% grade 1 diastolic dysfunction. Qualifiers: Associated angina: without angina Coronary Disease-Associated Artery/Lesion type: [place] artery [place] vs. transplanted heart: [place] heart Qualified Code(s): I25.10 - Atherosclerotic heart disease of [place] coronary artery without angina pectoris (5) Chest pain: (6) COPD (chronic obstructive pulmonary disease) with chronic bronchitis: Plan Continue other chronic home medications including duloxetine w, carbidopa levodopa, fenofibrate, gabapentin 800 mg 3 times daily, mirtazapine. Holding off on home dose of leflunomide. CODE STATUS: Discussed under with the patient. Patient's sister will be the DPOA. Full code. Cardiac diet Protonix OPD prophylaxis Lovenox for DVT prophylaxis. Attestations Medical Necessity Statement*: Admission for more than 2 midnights for management of hypoxic respiratory failure in setting of influenza A while PE ruled out in a patient with history of CAD, COPD Diagnoses Acute respiratory failure with hypoxia J96.01 Influenza A J10.1 Essential hypertension I10 Hypertension type: essential hypertension Coronary artery disease involving [place] coronary artery of [place] heart without angina pectoris I25.10 Associated angina: without angina Coronary Disease-Associated Artery/Lesion type: [place] artery [place] vs. transplanted heart: [place] heart Chest pain R07.9 COPD (chronic obstructive pulmonary disease) with chronic bronchitis J44.89
[2024-05-19] MEDS: metoprolol tartrate 1 mg/1 mL SDV 5 mL 2.5 MG IVP (16:49)
[2024-05-19 16:56] LABS: D Dimer 1.01 ug/mLFEU (0-0.59)
--- NOTE | 2024-05-19 17:01 | CTR_ITS ---
PROCEDURE INFORMATION: Exam: CTA Chest With Contrast Exam date and time: 05/19/2024 5:43 PM Age: 78 years old Clinical indication: Other: Hypoxia; Additional info: Elevated dimer, hypoxia, tachycardia TECHNIQUE: Imaging protocol: Computed tomographic angiography of the chest with contrast. Exam focused on the arteries. 3D rendering (Not supervised by radiologist): MIP and/or 3D reconstructed images were created by the technologist. Radiation optimization: All CT scans at this facility use at least one of these dose optimization techniques: automated exposure control; mA and/or kV adjustment per patient size (includes targeted exams where dose is matched to clinical indication); or iterative reconstruction. Contrast material: OMNIPAQUE 350; Contrast volume: 100 ml; Contrast route: INTRAVENOUS (IV); COMPARISON: CT angio chest PE protcl [id number] 09/07/2022 8:36 AM RADIATION DOSE METRICS: Total DLP (mGy-cm): 233.31 FINDINGS: Pulmonary arteries: The pulmonary arteries are well opacified with contrast. No intraluminal soft tissue filling defects are seen to suggest a pulmonary embolism. Aorta: The thoracic aorta is normal in caliber with moderate atherosclerotic calcification and mural thrombus. No aneurysm or evidence for dissection. Lungs: Moderate diffuse emphysematous changes throughout the lungs, particularly involving the upper lobes. Small 6 mm spiculated lesion at the left lung apex, not significantly changed. A 4 mm noncalcified subpleural nodule is again seen in the posterior left upper lobe, stable. No new pulmonary nodules seen. No focal consolidation. Pleural spaces: Unremarkable. No pneumothorax. No pleural effusion. Heart: Unremarkable. No cardiomegaly. No pericardial effusion. Coronary arteries: Moderate to severe coronary arterial calcification. Lymph nodes: Unremarkable. No enlarged lymph nodes. Gallbladder and biliary ducts: Gallbladder is surgically absent. Kidneys: A 12 mm mildly hyperdense lesion in the visualized left kidney is stable in appearance and compatible with a hemorrhagic cyst. Bones/joints: Unremarkable. No acute fracture. Soft tissues: Unremarkable. CT/CT angio chest PE protcl [id number] IMPRESSION: 1. Moderate COPD. 2. Stable 6 mm spiculated lesion in the left lung apex and noncalcified 4 mm subpleural nodule in the posterior left upper lobe, stable since September 07, 2022. 3. No evidence for pulmonary embolism. 4. Moderate to severe coronary arterial calcification. COMMENTS: The presence of pulmonary emphysema on CT is an independent risk factor for lung cancer. In the absence of a history or active diagnosis of lung cancer, it is recommended that this patient with emphysema be evaluated for enrollment in a low dose CT lung cancer screening program.
[2024-05-19 17:02] LABS: Troponin 5 2HR 17.45 ng/L (0-10)
[2024-05-19 17:03] LABS: Troponin 5 2HR Delta -0.55 ABS# (0-10)
--- NOTE | 2024-05-19 17:05 | ECG_ITS ---
[facility] Test Date: 2024-05-19 Pat Name: Elyssa Daniels Department: Room: Gender: Female Histology Manager: : 1945 Requested By: Amelie Chavez Order Number: [id number] Lira MD: Marco Lizama M.D. Measurements Intervals [place] Rate: 127 P: 257 IN: 143 QRS: -9 QRSD: 107 T: 89 QT: 325 QTc: 473 Interpretive Statements ECTOPIC ATRIAL TACHYCARDIA Compared to ECG 05/19/2024 14:21:52 Sinus tachycardia no longer present Electronically Signed On 05-22-2024 22:22:55 PIE FILLING MIXER by Marco Lizama M.D. [email or web address] [id number]
[2024-05-19 17:06] LABS: Lactic Sepsis W/Reflex 0.9 mmol/L (0.5-2.2)
[2024-05-19 17:13] LABS: Procalcitonin 0.03 ng/mL (0-0.5)
[2024-05-19] MEDS: iohexol 350 mg/mL 500 mL Btl (per mL) IV (17:45)
[2024-05-19] MEDS: oseltamivir phosphate 75 mg Capsule PO (18:30)
[2024-05-19] MEDS: ropinirole 2 mg Tablet PO (18:30)
[2024-05-19] MEDS: docusate sodium 100 mg Capsule PO (18:30)
[2024-05-19] MEDS: pantoprazole 40 mg SDV IVP (18:30)
[2024-05-19] MEDS: sodium chloride 0.9% 1,000 ML 50 ML IV (18:30)
[2024-05-19] MEDS: enoxaparin 40 mg/0.4 mL Syringe SUBCUT (18:36)
[2024-05-19] MEDS: nicotine 21 mg Patch 1 PATCH TRANSDERMA (18:36)
[2024-05-19 20:00] LABS: Iron 21 ug/dL (37-145); Percent Saturation 6.3 % (20-50); Total Iron Binding Capacity 332 mcg/dl; Unsaturated Iron Binding 311 ug/dL (112-347)
[2024-05-19] MEDS: budesonide 0.5 mg/2 mL Neb INHALATION (20:09)
[2024-05-19] MEDS: levalbuterol 0.63 mg/3 mL Neb INHALATION (20:09)
[2024-05-19] MEDS: ipratropium 0.5 mg/2.5 mL Neb INHALATION (20:09)
[2024-05-19 20:18] LABS: Estmated Average Glucose 131; Hemoglobin A1C 6.2 % (4.0-6.0)
[2024-05-19 20:21] LABS: Glucose Point of Care 191 mg/dL (70-110)
[2024-05-19] MEDS: atorvastatin 40 mg Tablet PO (20:47)
[2024-05-19] MEDS: gabapentin 400 mg Capsule 800 MG PO (20:47)
[2024-05-19] MEDS: hyDRALAzine 50 mg Tablet PO (20:47)
[2024-05-19] MEDS: metoprolol tartrate 25 mg Tablet PO (20:47)
[2024-05-19] MEDS: carbidopa-levodopa 25-100mg Tablet 2 EACH PO (20:47)
[2024-05-19] MEDS: mirtazapine 15 mg Tablet PO (20:47)
[2024-05-19 21:14] LABS: Troponin 5 6HR 15.75 ng/L (0-10)
[2024-05-19 21:15] LABS: Troponin 5 6HR Delta -2.25 ng/L (0-12)
[2024-05-19] MEDS: methylPREDNISolone sod succ 40 mg/mL INJ IVP (22:16)
[2024-05-19 23:52] LABS: Thyroid Stimulating Hormone 0.64 uIU/mL (0.27-4.20); Vitamin B12 453 pg/mL (232-1245)
[2024-05-20] VITALS (12 sets, daily range): BP systolic 107–146; BP diastolic 50–87; PULSE 75–95; RESP 16–28; TEMP 36.3–36.9; O2SAT 91–95
[2024-05-20] MEDS: levalbuterol 0.63 mg/3 mL Neb INHALATION ×4 (01:31→20:03)
[2024-05-20] MEDS: ipratropium 0.5 mg/2.5 mL Neb INHALATION ×4 (01:31→20:03)
[2024-05-20 05:26] LABS: Basophils % 0.4 %; Hematocrit 37.8 % (36-47); Lymphocytes # 0.3 10^3/uL (0.8-4.8); Lymphocytes % 9.9 %; Mean Corpuscular HGB Conc 31.5 g/dL (30-55); Mean Corpuscular Hemoglobin 27.9 pg (27-33); Mean Corpuscular Volume 88.5 fl (85-98); Mean Platelet Volume 9.8 fL (7.4-10.4); Monocytes # 0.1 10^3/uL (0.2-0.9); Monocytes % 3.2 %; Neutrophils # 2.43 10^3/uL (1.8-7.7); Neutrophils % 86.1 %; Nucleated Red Blood Cells % 0 %; Platelet Count 208 10^3/cmm (157-399); Red Blood Count 4.27 10^6/uL (3.85-5.65); Red Cell Distribution Width 15.3 % (12.1-15.1); White Blood Count 2.82 10^3/uL (3.29-11.43)
[2024-05-20 06:15] LABS: Alanine Aminotransferase 7 U/L (0-33); Albumin Level 3.5 g/dL (3.5-5.2); Alkaline Phosphatase 49 U/L (35-105); Anion Gap 16.3 (5-19); Aspartate Amino Transferase 15 U/L (0-32); Blood Urea Nitrogen 14 mg/dL (8-23); Calcium 8.2 mg/dL (8.5-10.5); Carbon Dioxide 21 mmol/L (22-29); Chloride 100 mmol/L (98-107); Creatinine Clr Calc Pharmacy 46.2175; Globulin 2.6 g/dL (1.3-4.6); Glucose 184 mg/dL (65-115); Magnesium 1.7 mg/dL (1.7-2.3); Osmolality Calculated 281 mOsm/kg (285-295); Phosphorus 2.4 mg/dL (2.5-4.5); Potassium 4.3 mmol/L (3.5-5.1); Sodium 133 mmol/L (136-145); Total Bilirubin 0.2 mg/dL (0.15-1.2); Total Protein 6.1 g/dL (6.6-8.7)
[2024-05-20] MEDS: albuterol 2.5 mg/3 mL Neb INHALATION (06:15)
[2024-05-20 06:17] LABS: Chol HDL Ratio 3.29 mg/dL (0.0-4.40); Cholesterol 125 mg/dL (0-200); HDL Cholesterol 38 mg/dL (60-100); LDL Cholesterol Calculated 72 mg/dL (50-129); LDL HDL Ratio 1.89 RATIO (0.00-3.22); Procalcitonin 0.07 ng/mL (0-0.5); Triglycerides 74 mg/dL (0-150)
[2024-05-20 06:18] LABS: Folate Level 7.8 ng/mL (4.8-37.3)
--- NOTE | 2024-05-20 06:22 | ECG_ITS ---
[employer] Test Date: 2024-05-20 Pat Name: Elyssa Daniels Department: Room: 271 Gender: Female Exploitation Analyst: : 1945 Requested By: Hugo Alvarado Order Number: [id number] Pankaj MD: Marco Lizama M.D. Measurements Intervals [place] Rate: 93 P: 79 MS: 179 QRS: 36 QRSD: 89 T: 82 QT: 350 QTc: 437 Interpretive Statements SINUS RHYTHM POSSIBLE LEFT ATRIAL ENLARGEMENT [-0.1mV P-WAVE IN V1/V2] Compared to ECG 05/19/2024 17:05:24 No significant changes Electronically Signed On 05-22-2024 22:04:04 CLERK RATING by Marco Lizama M.D. [email or web address] [id number]
[2024-05-20 06:29] LABS: Glucose Point of Care 164 mg/dL (70-110)
[2024-05-20] MEDS: amlodipine 10 mg Tablet PO (06:29)
[2024-05-20] MEDS: methylPREDNISolone sod succ 40 mg/mL INJ IVP ×4 (06:29→22:32)
[2024-05-20] MEDS: docusate sodium 100 mg Capsule PO ×2 (08:35→17:33)
[2024-05-20] MEDS: carbidopa-levodopa 25-100mg Tablet 2 EACH PO ×3 (08:35→21:02)
[2024-05-20] MEDS: clopidogrel 75 mg Tablet PO (08:35)
[2024-05-20] MEDS: duloxetine 30 mg Capsule PO (08:35)
[2024-05-20] MEDS: gabapentin 400 mg Capsule 800 MG PO ×3 (08:35→21:02)
[2024-05-20] MEDS: nicotine 21 mg Patch 1 PATCH TRANSDERMA (08:35)
[2024-05-20] MEDS: fenofibrate 48 mg Tablet PO (08:35)
[2024-05-20] MEDS: metoprolol tartrate 25 mg Tablet PO ×2 (08:35→21:02)
[2024-05-20] MEDS: levothyroxine 100 mcg Tablet PO (08:36)
[2024-05-20] MEDS: oseltamivir phosphate 75 mg Capsule PO ×2 (08:36→17:33)
[2024-05-20] MEDS: hyDRALAzine 50 mg Tablet PO ×2 (08:36→17:33)
[2024-05-20] MEDS: budesonide 0.5 mg/2 mL Neb INHALATION ×2 (08:55→20:03)
--- NOTE | 2024-05-20 10:12 | PC.CHAP ---
Pastoral Care Encounter/Spiritual Assessment Type of Contact [] Declined frozen pie maker visit [] Patient/Family/Request visit [] Outpatient visit [] Follow-up visit [] Physician referral [] Code/Alert [] Routine visit [] Staff referral [] Actively dying [] Patient sleeping [] Family support [] [] Out of room [] Palliative care [] [] Receiving care in room [] Pre-surgical visit [] Trauma [] Long length of stay [] ICU visit [x] Other:Contact precautions. No visit. Relational/Emotional Strength [] Patient feels connected with others/family/visitors/staff [] Distress [] Loneliness/isolation [] Abandonment Spirituality of Patient [] Person of Marisel [] Attends Orthodoxy of their [place] [] Believes in Prayer [] Reads Bible or Mandaeism materials [] There are Spiritual issues to be addressed Accounting Lecturer Interventions [] Prayer [] Active listening [] Non-anxious presence [] Spiritual/emotional support [] Crisis/trauma care [] Spiritual counseling [] Bereavement support [] Provided bereavement packet [] Provided Bible/devotional materials [] Provided toy/stuffed animal, coloring book to patient or family member [] Provided Communion [] Anointing/[place] [] Salvation [] Completed spiritual assessment [] Other: Impact on Illness or Injury [] Angry [] Fearful [] Anxious [] Often cries [] Exhaustion [] Unable to work [] Unable to attend spiritism [] Unable to walk/stand [] Unable to read [] Unable to drive [] Unable to eat/drink [] Unable to sleep [] Unable to be with family [] Patient intubated [] Other: Summary Time spent with patient
[2024-05-20] MEDS: duloxetine 60 mg Capsule PO (11:23)
[2024-05-20 13:13] LABS: MRSA PCR OZH (swab) NOT DETECTED (Not Detecte)
[2024-05-20] MEDS: pantoprazole 40 mg SDV IVP (17:33)
[2024-05-20] MEDS: enoxaparin 40 mg/0.4 mL Syringe SUBCUT (17:33)
[2024-05-20] MEDS: ropinirole 2 mg Tablet PO (17:33)
--- NOTE | 2024-05-20 17:35 | P.PN_ITS ---
Subjective 2 Subjective: No acute vents overnight. Patient continues to require 4 L of oxygen supplementation. States on ambulation she is getting fairly winded. Required up to 5 L on minimal ambulation. Denies any nausea vomiting, headache. Appetite is appropriate. Vitals/I&O/Wt Last Vital Signs Temp 97.9 F 05/20/24 15:21 Pulse 88 05/20/24 15:21 Resp 17 05/20/24 15:21 BP 144/79 05/20/24 15:21 Pulse Ox 94 05/20/24 15:21 O2 Del Method Nasal Cannula 05/20/24 15:21 O2 Flow Rate 4 05/20/24 13:37 05/20/24 05/20/24 05/20/24 06:59 14:59 22:59 Intake Total 1015 / 1015 Balance 1015 / 1015 Weight last 48 hrs Weight 70.125 kg Weight 69.853 kg Physical Exam 2 Narrative: General: No acute distress, AO x3, sick appearing HEENT: PERRLA, pupils bilaterally equal and reactive Chest: Normal vesicular breath sounds, no added sounds, equal good air entry bilaterally CVS: S1-S2 regular, no murmurs, tachycardia, no gallops, no rubs Abdomen: Soft, nontender, no organomegaly, bowel sounds present Neuro: No focal deficits, no facial deformity, AO x3, power 5/5 in all limbs Data 05/20/24 04:54 05/20/24 04:54 A&P Assessment and plan (1) Acute respiratory failure with hypoxia: Most likely COPD exacerbation in setting of influenza. At baseline not on oxygen. Currently requiring 4 L. Oxygen supplementation keeping saturation over 90%. Appreciate continued negative procalcitonin trend, D-dimer, negative MRSA swab. Appreciate CTA negative for PE. Consistent with moderate COPD. Solu-Medrol 40 mg every 6 hourly. Ipratropium, Xopenex every 6 hour, Pulmicort twice daily. Low concerns for superimposed bacterial infection for now. Empirically start on oral Levaquin 750 mg daily. Check sputum culture (2) Influenza A: Supportive treatment as above. Tamiflu 75 mg twice daily. Will plan for 5-day course. Out of bed to chair. Aggressive pulmonary toilet with incentive spirometry. (3) Hypertension: Goal blood pressure less than 140/90 mmHg. For now continue with home dose of hydralazine 50 mg twice daily, amlodipine 10 mg oral daily, switch propranolol 20 mg twice daily to metoprolol 25 mg twice daily given extensive tachycardia. Will uptitrate as for goal blood pressures. Holding off on losartan given mild DAKSHA and possible need for CTA. Qualifiers: Hypertension type: essential hypertension Qualified Code(s): I10 - Essential (primary) hypertension (4) Coronary artery disease: Complaining of central chest pain. Troponin cycled negative Appreciate hiatal yogurt but A1c, lipid panel. For now continue with home dose of statin, baby aspirin. Last echocardiogram from 02/06 showed an EF of 60% grade 1 diastolic dysfunction. Qualifiers: Coronary Disease-Associated Artery/Lesion type: [place] artery [place] vs. transplanted heart: [place] heart Associated angina: without angina Q ualified Code(s): I25.10 - Atherosclerotic heart disease of [place] coronary artery without angina pectoris (5) Chest pain: (6) COPD (chronic obstructive pulmonary disease) with chronic bronchitis: Plan Continue other chronic home medications including duloxetine, carbidopa levodopa, fenofibrate, gabapentin 800 mg 3 times daily, mirtazapine. Holding off on home dose of leflunomide. Chronic smoking: Counseled patient in detail about no smoking. Nicotine patch. CODE STATUS: Discussed under with the patient. Patient's sister will be the DPOA. Full code. Cardiac diet Protonix OPD prophylaxis Lovenox for DVT prophylaxis. PDMP PDMP Reviewed: Not Reviewed Attestations 2 Medical Necessity Statement*: Requires further hospitalization for management of hypoxic respiratory failure in setting of COPD exacerbation due to influenza A Diagnoses Acute respiratory failure with hypoxia J96.01 Influenza A J10.1 Essential hypertension I10 Hypertension type: essential hypertension Coronary artery disease involving [place] coronary artery of [place] heart without angina pectoris I25.10 Coronary Disease-Associated Artery/Lesion type: [place] artery [place] vs. transplanted heart: [place] heart Associated angina: without angina Chest pain R07.9 COPD (chronic obstructive pulmonary disease) with chronic bronchitis J44.89
[2024-05-20] MEDS: atorvastatin 40 mg Tablet PO (21:02)
[2024-05-20] MEDS: mirtazapine 15 mg Tablet PO (21:02)
[2024-05-21] VITALS (13 sets, daily range): BP systolic 113–162; BP diastolic 74–97; PULSE 72–94; RESP 17–20; TEMP 36.4–37.1; O2SAT 92–97
[2024-05-21] MEDS: ipratropium 0.5 mg/2.5 mL Neb INHALATION ×4 (02:37→21:13)
[2024-05-21] MEDS: levalbuterol 0.63 mg/3 mL Neb INHALATION ×4 (02:37→21:12)
[2024-05-21 05:06] LABS: Hematocrit 40.3 % (36-47); Lymphocytes # 0.6 10^3/uL (0.8-4.8); Lymphocytes % 8.2 %; Mean Corpuscular HGB Conc 31.3 g/dL (30-55); Mean Corpuscular Volume 89.6 fl (85-98); Mean Platelet Volume 9.7 fL (7.4-10.4); Monocytes # 0.4 10^3/uL (0.2-0.9); Monocytes % 5.5 %; Neutrophils # 6.07 10^3/uL (1.8-7.7); Neutrophils % 85.9 %; Nucleated Red Blood Cells % 0 %; Platelet Count 224 10^3/cmm (157-399); Red Cell Distribution Width 15.5 % (12.1-15.1); White Blood Count 7.07 10^3/uL (3.29-11.43)
[2024-05-21 05:27] LABS: Alanine Aminotransferase < 5 U/L (0-33); Albumin Level 3.5 g/dL (3.5-5.2); Alkaline Phosphatase 47 U/L (35-105); Aspartate Amino Transferase 20 U/L (0-32); Blood Urea Nitrogen 17 mg/dL (8-23); Calcium 8.3 mg/dL (8.5-10.5); Carbon Dioxide 26 mmol/L (22-29); Chloride 102 mmol/L (98-107); Creatinine Clr Calc Pharmacy 51.4427; Globulin 2.7 g/dL (1.3-4.6); Glucose 159 mg/dL (65-115); Magnesium 2.1 mg/dL (1.7-2.3); Osmolality Calculated 287 mOsm/kg (285-295); Phosphorus 2.7 mg/dL (2.5-4.5); Sodium 136 mmol/L (136-145); Total Bilirubin 0.2 mg/dL (0.15-1.2); Total Protein 6.2 g/dL (6.6-8.7)
[2024-05-21] MEDS: methylPREDNISolone sod succ 40 mg/mL INJ IVP ×3 (05:42→18:05)
[2024-05-21] MEDS: amlodipine 10 mg Tablet PO (05:43)
[2024-05-21] MEDS: nicotine 21 mg Patch 1 PATCH TRANSDERMA (08:32)
[2024-05-21] MEDS: carbidopa-levodopa 25-100mg Tablet 2 EACH PO ×3 (08:32→22:24)
[2024-05-21] MEDS: docusate sodium 100 mg Capsule PO ×2 (08:32→17:59)
[2024-05-21] MEDS: fenofibrate 48 mg Tablet PO (08:32)
[2024-05-21] MEDS: duloxetine 60 mg Capsule PO (08:32)
[2024-05-21] MEDS: duloxetine 30 mg Capsule PO (08:32)
[2024-05-21] MEDS: hyDRALAzine 50 mg Tablet PO ×2 (08:32→17:58)
[2024-05-21] MEDS: levothyroxine 100 mcg Tablet PO (08:32)
[2024-05-21] MEDS: oseltamivir phosphate 75 mg Capsule PO ×2 (08:32→17:59)
[2024-05-21] MEDS: gabapentin 400 mg Capsule 800 MG PO ×3 (08:32→22:23)
[2024-05-21] MEDS: clopidogrel 75 mg Tablet PO (08:32)
[2024-05-21] MEDS: metoprolol tartrate 25 mg Tablet PO ×2 (08:38→22:23)
[2024-05-21] MEDS: budesonide 0.5 mg/2 mL Neb INHALATION ×2 (08:51→21:12)
[2024-05-21 11:45] LABS: Glucose Point of Care 118 mg/dL (70-110)
--- NOTE | 2024-05-21 12:01 | PC.SOCIAL ---
IMM Update pg 2 of IMM Updated and reviewed w/ patient. Copy provided and copy dated, initialed and placed in chart.
--- NOTE | 2024-05-21 14:59 | PM.PN ---
Subjective Subjective: No acute events overnight. Patient has remained hemodynamically stable and afebrile. States she is feeling better. Down to 2 L ox supplementation. Able to ambulate in room. Vitals/I&O/Wt Last Vital Signs Temp 97.5 F L 05/21/24 13:00 Pulse 82 05/21/24 13:37 Resp 18 05/21/24 13:31 BP 131/77 05/21/24 13:00 Pulse Ox 94 05/21/24 13:31 O2 Del Method Nasal Cannula 05/21/24 13:31 O2 Flow Rate 2 05/21/24 13:31 05/20/24 05/21/24 05/21/24 22:59 06:59 14:59 Intake Total 360 / 1375 240 / 1615 720 / 720 Output Total 300 / 300 Balance 360 / 1375 -60 / 1315 720 / 720 Weight last 48 hrs Weight 70.261 kg Weight 70.261 kg Weight 70.125 kg Physical Exam Narrative: General: No acute distress, AO x3, HEENT: PERRLA, pupils bilaterally equal and reactive Chest: Normal vesicular breath sounds, no added sounds, equal good air entry bilaterally CVS: S1-S2 regular, no murmurs, tachycardia, no gallops, no rubs Abdomen: Soft, nontender, no organomegaly, bowel sounds present Neuro: No focal deficits, no facial deformity, AO x3, power 5/5 in all limbs Data 05/21/24 04:43 05/21/24 04:43 A&P Assessment and plan (1) Acute respiratory failure with hypoxia: Most likely COPD exacerbation in setting of influenza. At baseline not on oxygen. Currently requiring 4 L. Oxygen supplementation keeping saturation over 90%. Appreciate continued negative procalcitonin trend, D-dimer, negative MRSA swab. Appreciate CTA negative for PE. Consistent with moderate COPD. Solu-Medrol 40 mg every 6 hourly. Ipratropium, Xopenex every 6 hour, Pulmicort twice daily. Low concerns for superimposed bacterial infection for now. Empirically start on oral Levaquin 750 mg daily. Check sputum culture (2) Influenza A: Supportive treatment as above. Tamiflu 75 mg twice daily. Will plan for 5-day course. Out of bed to chair. Aggressive pulmonary toilet with incentive spirometry. (3) Hypertension: Goal blood pressure less than 140/90 mmHg. For now continue with home dose of hydralazine 50 mg twice daily, amlodipine 10 mg oral daily, switch propranolol 20 mg twice daily to metoprolol 25 mg twice daily given extensive tachycardia. Will uptitrate as for goal blood pressures. Holding off on losartan given mild DAKSHA and possible need for CTA. Qualifiers: Hypertension type: essential hypertension Qualified Code(s): I10 - Essential (primary) hypertension (4) Coronary artery disease: Complaining of central chest pain. Troponin cycled negative Appreciate hiatal yogurt but A1c, lipid panel. For now continue with home dose of statin, baby aspirin. Last echocardiogram from 02/06 showed an EF of 60% grade 1 diastolic dysfunction. Qualifiers: Coronary Disease-Associated Artery/Lesion type: [place] artery [place] vs. transplanted heart: [place] heart Associated angina: without angina Qualified Code(s): I25.10 - Atherosclerotic heart disease of [place] coronary artery without angina pectoris (5) Chest pain: (6) COPD (chronic obstructive pulmonary disease) with chronic bronchitis: Plan Continue other chronic home medications including duloxetine, carbidopa levodopa, fenofibrate, gabapentin 800 mg 3 times daily, mirtazapine. Holding off on home dose of leflunomide. Chronic smoking: Counseled patient in detail about no smoking. Nicotine patch. CODE STATUS: Discussed under with the patient. Patient's sister will be the DPOA. Full code. Cardiac diet Protonix OPD prophylaxis Lovenox for DVT prophylaxis. Plan for the day: Wean oxygen supplementation keeping saturation around 88%. Ambulate. Incentive spirometry. Wean Solu-Medrol to 40 mg every 8 hourly. Will plan for rapid taper within next 24 hours. Continue nebulization treatment. Follow-up sputum culture when collected. Discharge plan: Plan to discharge home with home health within next 24 hours if patient remains hemodynamically stable. Will need home O2 evaluation prior to discharge. PDMP PDMP Reviewed: Not Reviewed Attestations Medical Necessity Statement*: Further hospitalization for respiratory failure in setting of influenza A in. Diagnoses Acute respiratory failure with hypoxia J96.01 Influenza A J10.1 Essential hypertension I10 Hypertension type: essential hypertension Coronary artery disease involving [place] coronary artery of [place] heart without angina pectoris I25.10 Coronary Disease-Associated Artery/Lesion type: [place] artery [place] vs. transplanted heart: [place] heart Associated angina: without angina Chest pain R07.9 COPD (chronic obstructive pulmonary disease) with chronic bronchitis J44.89
[2024-05-21 16:58] LABS: Glucose Point of Care 132 mg/dL (70-110)
[2024-05-21] MEDS: pantoprazole 40 mg SDV IVP (17:58)
[2024-05-21] MEDS: ropinirole 2 mg Tablet PO (17:58)
[2024-05-21] MEDS: enoxaparin 40 mg/0.4 mL Syringe SUBCUT (17:59)
[2024-05-21 20:25] LABS: Glucose Point of Care 187 mg/dL (70-110)
[2024-05-21] MEDS: acetaminophen 325 mg Tablet 650 MG PO (22:22)
[2024-05-21] MEDS: mirtazapine 15 mg Tablet PO (22:24)
[2024-05-21] MEDS: atorvastatin 40 mg Tablet PO (22:24)
[2024-05-22] VITALS (9 sets, daily range): BP systolic 142–166; BP diastolic 75–90; PULSE 73–89; RESP 17–18; TEMP 36.7–37.2; O2SAT 88–96
[2024-05-22] MEDS: ipratropium-albuterol 3 mL Neb INHALATION (02:33)
[2024-05-22 05:42] LABS: Basophils % 0.1 %; Hematocrit 43.9 % (36-47); Lymphocytes # 0.7 10^3/uL (0.8-4.8); Lymphocytes % 8.3 %; Mean Corpuscular HGB Conc 31.2 g/dL (30-55); Mean Corpuscular Hemoglobin 27.9 pg (27-33); Mean Corpuscular Volume 89.4 fl (85-98); Mean Platelet Volume 9.9 fL (7.4-10.4); Monocytes # 0.3 10^3/uL (0.2-0.9); Monocytes % 4.2 %; Neutrophils # 7.08 10^3/uL (1.8-7.7); Neutrophils % 87.2 %; Nucleated Red Blood Cells % 0 %; Platelet Count 248 10^3/cmm (157-399); Red Blood Count 4.91 10^6/uL (3.85-5.65); Red Cell Distribution Width 15.6 % (12.1-15.1); White Blood Count 8.12 10^3/uL (3.29-11.43)
[2024-05-22 06:02] LABS: Alanine Aminotransferase 7 U/L (0-33); Albumin Level 3.9 g/dL (3.5-5.2); Alkaline Phosphatase 49 U/L (35-105); Blood Urea Nitrogen 26 mg/dL (8-23); Calcium 8.7 mg/dL (8.5-10.5); Carbon Dioxide 28 mmol/L (22-29); Chloride 99 mmol/L (98-107); Creatinine Clr Calc Pharmacy 52.1025; Globulin 3.1 g/dL (1.3-4.6); Glucose 156 mg/dL (65-115); Magnesium 2.1 mg/dL (1.7-2.3); Osmolality Calculated 296 mOsm/kg (285-295); Phosphorus 2.9 mg/dL (2.5-4.5); Sodium 139 mmol/L (136-145); Total Bilirubin 0.2 mg/dL (0.15-1.2)
[2024-05-22 06:03] LABS: Anion Gap 17.6 (5-19); Aspartate Amino Transferase 23 U/L (0-32); Potassium 5.6 mmol/L (3.5-5.1)
[2024-05-22] MEDS: methylPREDNISolone sod succ 40 mg/mL INJ IVP ×2 (06:03→10:45)
[2024-05-22] MEDS: amlodipine 10 mg Tablet PO (06:04)
[2024-05-22 06:18] LABS: Glucose Point of Care 247 mg/dL (70-110)
[2024-05-22] MEDS: budesonide 0.5 mg/2 mL Neb INHALATION (07:47)
[2024-05-22] MEDS: ipratropium 0.5 mg/2.5 mL Neb INHALATION ×2 (07:47→13:10)
[2024-05-22] MEDS: levalbuterol 0.63 mg/3 mL Neb INHALATION ×2 (07:47→13:10)
[2024-05-22] MEDS: oseltamivir phosphate 75 mg Capsule PO (09:01)
[2024-05-22] MEDS: duloxetine 60 mg Capsule PO (09:01)
[2024-05-22] MEDS: carbidopa-levodopa 25-100mg Tablet 2 EACH PO (09:01)
[2024-05-22] MEDS: levothyroxine 100 mcg Tablet PO (09:01)
[2024-05-22] MEDS: fenofibrate 48 mg Tablet PO (09:01)
[2024-05-22] MEDS: gabapentin 400 mg Capsule 800 MG PO (09:01)
[2024-05-22] MEDS: nicotine 21 mg Patch 1 PATCH TRANSDERMA (09:02)
[2024-05-22] MEDS: clopidogrel 75 mg Tablet PO (09:02)
[2024-05-22] MEDS: hyDRALAzine 50 mg Tablet PO (09:02)
[2024-05-22] MEDS: duloxetine 30 mg Capsule PO (09:02)
[2024-05-22] MEDS: docusate sodium 100 mg Capsule PO (09:02)
[2024-05-22] MEDS: metoprolol tartrate 25 mg Tablet PO (09:08)
[2024-05-22] MEDS: FUROsemide 10 mg/mL SDV 2mL 20 MG IVP (10:45)
--- NOTE | 2024-05-22 10:49 | PM.DCS ---
Discharge Providers Date of Admission: 05/19/24 17:36 Date of Discharge: May 22, 2024 Attending Provider at Admission: Hugo Alvarado MD Attending Provider at Discharge: Hugo Alvarado MD Primary Care Provider: Ignacia Araujo MD Diagnoses at Discharge Discharge Diagnosis (1) Acute respiratory failure with hypoxia: Status: Acute (2) Influenza A: Status: Acute (3) Hypertension: Status: Chronic Qualifiers: Hypertension type: essential hypertension Qualified Code(s): I10 - Essential (primary) hypertension (4) Coronary artery disease: Status: Acute Qualifiers: Associated angina: without angina Coronary Disease-Associated Artery/Lesion type: [place] artery [place] vs. transplanted heart: [place] heart Qualified Code(s): I25.10 - Atherosclerotic heart disease of [place] coronary artery without angina pectoris Permanent problem details: Patient with stents (5) Chest pain: Status: Acute (6) COPD (chronic obstructive pulmonary disease) with chronic bronchitis: Status: Acute Reason for Visit Reason for Visit: difficulty breathing, tachy Hospital Course Hospital Course Elyssa Daniels is a 78 year old female with past medical history of COPD, CAD with PCI, Parkinson's, hypertension, hyperlipidemia presents to the ER today because of difficulty in breathing, central chest pain which was sharp in nature with cough for more than 2 days. Patient denies any sick contacts. Denies any nausea counting, headache or dizziness. Oral intake has been limited. On arrival to the ER patient was found to be tachycardic with heart rate up to 130s, found to be in sinus rhythm. Was found to be flu positive. Patient was admitted to the hospital further evaluation and management of hypoxic respiratory failure in setting of influenza A. She was started on treatment with steroids, nebulization and Tamiflu. She was found to be dehydrated on admission with acute kidney injury. She was started on IV fluids which she tolerated well and DAKSHA has resolved. Home O2 evaluation was done prior to discharge. CTA was done which showed moderate COPD. She was continued on empiric antibiotic. She has been discharged in hemodynamically stable condition back home after home O2 evaluation on adjusted antihypertensive, nebulization treatment and steroid taper. Home health has been arranged for her for safe discharge planning. Physical Exam Narrative: General: No acute distress, AO x3, HEENT: PERRLA, pupils bilaterally equal and reactive Chest: Normal vesicular breath sounds, no added sounds, equal good air entry bilaterally CVS: S1-S2 regular, no murmurs, tachycardia, no gallops, no rubs Abdomen: Soft, nontender, no organomegaly, bowel sounds present Neuro: No focal deficits, no facial deformity, AO x3, power 5/5 in all limbs Discharge Data Studies Completed and Pending Completed Studies During Hospitalization Category Date Time Status CTA chest [CT angio chest PE protcl [id number]] Stat Cat Scan 05/19/24 17:01 Completed XR chest 1V portable [id number] Stat Exams 05/19/24 14:24 Completed Pending at discharge Category Date Time Status Sputum Culture and Gram Stain Stat Lab 05/19/24 16:37 Uncollected Radiology Impressions Chest X-Ray 05/19/24 14:24 IMPRESSION: Mild pulmonary hyperexpansion. No pneumonia. Chest CTA 05/19/24 17:01 IMPRESSION: 1. Moderate COPD. 2. Stable 6 mm spiculated lesion in the left lung apex and noncalcified 4 mm subpleural nodule in the posterior left upper lobe, stable since September 07, 2022. 3. No evidence for pulmonary embolism. 4. Moderate to severe coronary arterial calcification. COMMENTS: The presence of pulmonary emphysema on CT is an independent risk factor for lung cancer. In the absence of a history or active diagnosis of lung cancer, it is recommended that this patient with emphysema be evaluated for enrollment in a low dose CT lung cancer screening program. Laboratory Results WBC 8.12 10^3/uL (3.29-11.43) 05/22/24 05:25 RBC 4.91 10^6/uL (3.85-5.65) 05/22/24 05:25 Hgb 13.70 g/dL (11.27-16.99) 05/22/24 05:25 Hct 43.9 % (36-47) 05/22/24 05:25 MCV 89.4 fl (85-98) 05/22/24 05:25 MCH 27.9 pg (27-33) 05/22/24 05:25 MCHC 31.2 g/dL (30-55) 05/22/24 05:25 RDW 15.6 % (12.1-15.1) H 05/22/24 05:25 Plt Count 248 10^3/cmm (157-399) 05/22/24 05:25 MPV 9.9 fL (7.4-10.4) 05/22/24 05:25 Neut % (Auto) 87.2 % 05/22/24 05:25 Lymph % (Auto) 8.3 % 05/22/24 05:25 [place] % (Auto) 4.2 % 05/22/24 05:25 Eos % (Auto) 0.0 % 05/22/24 05:25 Baso % (Auto) 0.1 % 05/22/24 05:25 Neut # (Auto) 7.08 10^3/uL (1.8-7.7) 05/22/24 05:25 Lymph # (Auto) 0.7 10^3/uL (0.8-4.8) L 05/22/24 05:25 [place] # (Auto) 0.3 10^3/uL (0.2-0.9) 05/22/24 05:25 Eos # (Auto) 0.0 10^3/uL (0.0-0.8) 05/22/24 05:25 Baso # (Auto) 0.0 10^3/uL (0.0-0.1) 05/22/24 05:25 Nucleated RBC % (auto) 0 % 05/22/24 05: Nucleated RBCs # 0.0 /100WBC 05/22/24 05:25 D-Dimer 1.01 ug/mLFEU (0-0.59) H 05/19/24 14:29 Specimen Type Arterial 05/19/24 14:21 Sample Site Radial, right 05/19/24 14:21 ABG pH 7.39 (7.35-7.45) 05/19/24 14:21 ABG pCO2 38.1 mmHg (35-45) 05/19/24 14:21 ABG pO2 68.9 mmHg (80.0-100.0) L 05/19/24 14:21 ABG HCO3 23.0 mmol/L (22-26) 05/19/24 14:21 ABG Base Excess -1.7 mmol/L (-2.0-2.0) 05/19/24 14:21 Donn Test Pos 05/19/24 14:21 Hematocrit 42.1 % (37-47) 05/19/24 14:21 Hgb O2 Saturation 90.0 % (95-100) L 05/19/24 14:21 Carboxyhemoglobin 2.9 %THgb (0.4-20.1) 05/19/24 14:21 Methemoglobin 1.1 % (0.4-1.5) 05/19/24 14:21 Total Hemoglobin 13.7 g/dL (12-16) 05/19/24 14:21 O2 Delivery Device Nc 05/19/24 14:21 O2 Liters/Min 4.0 % 05/19/24 14:21 Writing Manager ID [place] 05/19/24 14:21 Sodium 139 mmol/L (136-145) 05/22/24 05:25 Potassium 5.6 mmol/L (3.5-5.1) H 05/22/24 05:25 Chloride 99 mmol/L (98-107) 05/22/24 05:25 Carbon Dioxide 28 mmol/L (22-29) 05/22/24 05:25 Anion Gap 17.6 (5-19) 05/22/24 05:25 BUN 26 mg/dL (8-23) H 05/22/24 05:25 Creatinine 0.9 mg/dL (0.5-0.9) 05/22/24 05:25 GFR Calculation Not Reportable 05/22/24 05:25 Glucose 156 mg/dL (65-115) H 05/22/24 05:25 POC Glucose 247 mg/dL (70-110) H 05/22/24 06:06 Estimat Average Glucose 131 05/19/24 19:13 Hemoglobin A1c 6.2 % (4.0-6.0) H 05/19/24 19:13 Calculated Osmolality 296 mOsm/kg (285-295) H 05/22/24 05:25 Lactic Acid 0.9 mmol/L (0.5-2.2) 05/19/24 14:29 Calcium 8.7 mg/dL (8.5-10.5) 05/22/24 05:25 Phosphorus 2.9 mg/dL (2.5-4.5) 05/22/24 05:25 Magnesium 2.1 mg/dL (1.7-2.3) 05/22/24 05:25 Iron 21 ug/dL (37-145) L 05/19/24 16:29 TIBC 332 mcg/dl 05/19/24 16:29 % Saturation 6.3 % (20-50) L 05/19/24 16:29 Unsat Iron Binding 311 ug/dL (112-347) 05/19/24 16:29 Total Bilirubin 0.2 mg/dL (0.15-1.2) 05/22/24 05:25 AST 23 U/L (0-32) 05/22/24 05:25 ALT 7 U/L (0-33) 05/22/24 05:25 Alkaline Phosphatase 49 U/L (35-105) 05/22/24 05:25 Troponin T Baseline 18 ng/L (0-10) H 05/19/24 14:29 Troponin T 120 Minute 17.45 ng/L (0-10) H 05/19/24 16:29 Delta Troponin T -0.55 ABS# (0-10) L 05/19/24 16:29 Troponin T Hi Sens 6Hr 15.75 ng/L (0-10) H 05/19/24 20:45 Troponin T Hi Sens 6Hr Delta -2.25 ng/L (0-12) L 05/19/24 20:45 NT-Pro-B Natriuret Pep 405 pg/mL (0-450) 05/19/24 14:29 Total Protein 7.0 g/dL (6.6-8.7) 05/22/24 05: Albumin 3.9 g/dL (3.5-5.2) 05/22/24 05:25 Globulin 3.1 g/dL (1.3-4.6) 05/22/24 05:25 Triglycerides 74 mg/dL (0-150) 05/20/24 04:54 Cholesterol 125 mg/dL (0-200) 05/20/24 04:54 LDL Cholesterol, Calc 72 mg/dL (50-129) 05/20/24 04:54 HDL Cholesterol 38 mg/dL (60-100) L 05/20/24 04:54 LDL/HDL Ratio 1.89 RATIO (0.00-3.22) 05/20/24 04:54 Cholesterol/HDL Ratio 3.29 mg/dL (0.0-4.40) 05/20/24 04:54 Vitamin B12 453 pg/mL (232-1245) 05/19/24 16:29 Folate 7.8 ng/mL (4.8-37.3) 05/20/24 04:54 Procalcitonin 0.07 ng/mL (0-0.5) 05/20/24 04:54 TSH 0.64 uIU/mL (0.27-4.20) 05/19/24 16:29 Nasal MRSA (PCR) Not detected (Not Detecte) 05/19/24 11:10 Coronavirus (PCR) Negative (Negative) 05/19/24 14:44 Influenza A (PCR) Positive (Negative) 05/19/24 14:44 Influenza Type B (PCR) Negative (Negative) 05/19/24 14:44 RSV (PCR) Negative (Negative) 05/19/24 14:44 Vitals Last Vital Signs Temp 98.9 F 05/22/24 07:33 Pulse 88 05/22/24 07:50 Resp 18 05/22/24 07:50 BP 166/90 05/22/24 07:33 Pulse Ox 93 05/22/24 07:50 O2 Del Method Nasal Cannula 05/22/24 07:50 O2 Flow Rate 2 05/22/24 07:50 Discharge Plan Discharge Patient Disposition: Home Health Service Condition: Stable Prescriptions: New fluticasone furoate-vilanterol [Breo Ellipta] 100-25 mcg/dose blister with device 1 inh inhalation DAILY Qty: 60 0RF metoprolol tartrate 25 mg Tablet 25 mg PO BID@0900,2100 Qty: 60 0RF oseltamivir 75 mg Capsule 75 mg PO BID Qty: 4 0RF levofloxacin 750 mg tablet 750 mg PO Q24H 3 Days Qty: 3 0RF prednisone 10 mg tablet See Taper PO DIRECTED Qty: 42 0RF Taper: predniSONE 60-10 60 mg Daily for 2 Days and 0 Hour 50 mg Daily for 2 Days and 0 Hour 40 mg Daily for 2 Days and 0 Hour 30 mg Daily for 2 Days and 0 Hour 20 mg Daily for 2 Days and 0 Hour 10 mg Daily for 2 Days and 0 Hour Rx Instructions: see taper instructions losartan 25 mg tablet 25 mg PO DAILY Qty: 30 0RF Continued (DME) diabetic shoes with 3 pairs inserts See Rx Instructions .Route .MEDSUPPLY Qty: 1 0RF Rx Instructions: As directed HOME (DME) TLSO brace See Rx Instructions .Route .MEDSUPPLY Qty: 1 0RF Rx Instructions: As directed hydroxyzine HCl 25 mg tablet 25 mg PO .HS PRN (Reason: sleep) Qty: 30 2RF (DME) nebulizers Misc See Rx Instructions .Route Qty: 1 0RF Rx Instructions: Nebulizer with tubing kit to use as directed albuterol sulfate 2.5 mg /3 mL (0.083 %) solution for nebulization 2.5 mg inhalation QID PRN (Reason: shortness of breath or wheezing) Qty: 180 3RF promethazine 12.5 mg tablet 12.5 mg PO TID PRN (Reason: nausea and vomiting) Qty: 90 0RF amlodipine 10 mg tablet 10 mg PO QAM Qty: 1 6RF leflunomide 10 mg tablet 10 mg PO DAILY Qty: 90 3RF metformin 500 mg tablet 500 mg PO DAILY Qty: 90 3RF carbidopa-levodopa 25-100 mg tablet 2 tab PO TID Qty: 180 5RF Rx Instructions: 2 with breakfast and lunch, 1 with dinner hydralazine 50 mg tablet 50 mg PO BID Qty: 60 4RF levothyroxine 100 mcg tablet 100 mcg PO DAILY Qty: 30 6RF cetirizine 10 mg tablet 10 mg PO DAILY Qty: 30 3RF Breztri Aerosphere 160-9-4.8 mcg/actuation HFA aerosol inhaler 2 inh inhalation BID 30 Days Qty: 10.7 6RF atorvastatin [Lipitor] 80 mg tablet 80 mg PO DAILY Qty: 90 1RF duloxetine [Cymbalta] 60 mg capsule,delayed release(DR/EC) 60 mg PO DAILY Qty: 30 2RF Rx Instructions: Take with the 30mg to make 90mg Ingrezza 80 mg capsule 80 mg PO DAILY Qty: 30 2RF gabapentin 800 mg tablet 800 mg PO TID MDD 3 Qty: 90 3RF fenofibrate 54 mg tablet 54 mg PO DAILY MDD 1 Qty: 30 3RF mirtazapine [Remeron] 15 mg tablet 15 mg PO .HS Qty: 30 1RF ondansetron 4 mg tablet,disintegrating 4 mg PO Q8H PRN (Reason: nausea and vomiting) Qty: 30 0RF clopidogrel 75 mg tablet 75 mg PO DAILY Qty: 90 1RF albuterol sulfate [Ventolin HFA] 90 mcg/actuation HFA aerosol inhaler 2 puff inhalation QID PRN (Reason: Shortness Of Breath) Qty: 8.5 2RF nitroglycerin [Nitrostat] 0.4 mg Tablet, Sublingual 0.4 mg SUBLINGUAL Q5M PRN (Reason: Chest Pain) Rx Instructions: do not exceed 3 doses per episode ropinirole 2 mg tablet 2 mg PO QPM Rx Instructions: TAKE ONE TABLET BY MOUTH AT BEDTIME duloxetine 30 mg capsule,delayed release(DR/EC) 30 mg PO DAILY Rx Instructions: Take with the 60mg to equal 90mg Discontinued doxycycline hyclate 100 mg capsule 100 mg PO BID 10 Days Qty: 20 0RF propranolol 20 mg tablet 20 mg PO BID Qty: 60 2RF losartan 100 mg tablet 100 mg PO DAILY Qty: 30 0RF meloxicam 7.5 mg tablet 7.5 mg PO DAILY Rx Instructions: TAKE ONE TABLET BY MOUTH DAILY Discharge Orders: Discharge Order (Routine); Ordered 05/22/24 Ordered By: Hugo Alvarado Other Ambulatory Orders: DME: Oxygen (Order) Location: None Selected Ordered By: Hugo Alvarado Referrals: [facility] [Outside] Ignacia Araujo MD [Primary Care Provider] - (We have notified your physician's clinic of the need for a follow-up appointment to be scheduled. If you have not heard from them within the next 2 business days, please call them directly. ) Discharge Diet: Cardiac Discharge Activity: Resume usual activity and Increase activity as tolerated Patient Instructions: Prednisone (By mouth) (Prednisone Intensol, Prednicot, Deltasone, Sailaja), Oseltamivir (By mouth) (Tamiflu), Influenza (DC), COPD (Chronic Obstructive Pulmonary Disease) (DC), Hypoxia (ED), COPD Stoplight, Opioid Safety Activity Restrictions/Additional Instructions: Check your blood pressure daily at home maintain blood pressure diary. Goal blood pressure less than 140/90 mmhg. Follow-up with a primary care provider within next 2 weeks for further adjustment of antihypertensive. Your home dose of propanol has been changed to metoprolol 25 mg twice daily. Home dose of losartan has been decreased to 25 mg daily. Take Tamiflu for next 3 days, Levaquin antibiotic for next 3 days. Prednisone taper as described. Discharge Attestations Time Spent in Discharge Care*: greater than 30 min Specific Discharge Activities: educating patient, discussing with pcp/other providers, discussing with machine adjuster leader case trim/social workers/dc planners, documenting/other paperwork and evaluating patient/reviewing data Status at Discharge: Cognitive status at discharge: cognitively intact, Behavioral status at discharge: cooperative, Functional status at discharge: independent ambulation, Overall status at discharge: patient is progressing back to baseline Quality Metrics Clinical Quality Measures [ No reported AMI, CVA or VTE this stay] Coding Level of Care Code 22432 Total time (in minutes) for Discharge: 60 Diagnoses Acute respiratory failure with hypoxia J96.01 Influenza A J10.1 Essential hypertension I10 Hypertension type: essential hypertension Coronary artery disease involving [place] coronary artery of [place] heart without angina pectoris I25.10 Associated angina: without angina Coronary Disease-Associated Artery/Lesion type: [place] artery [place] vs. transplanted heart: [place] heart Chest pain R07.9 COPD (chronic obstructive pulmonary disease) with chronic bronchitis J44.89
[2024-05-22 11:05] LABS: Glucose Point of Care 218 mg/dL (70-110)
[2024-05-22] MEDS: calcium gluconate 0.9% NaCL 1 GM/50 ML PREMIX IV (11:50)
== END 2024-05-22 14:16 | disposition home health service (06) | DRG 193 ==
LOC: ER 16:09 → MEDSURG 17:36
PROVIDERS: Admitting Provider Student in an Organized Health Care Education/Training Program; Emergency Provider Emergency Medicine; PCP Family Medicine; Visit Provider Student in an Organized Health Care Education/Training Program
DX: J10.1 Influenza due to other identified influenza virus with other respiratory manifestations (principal); J96.01 Acute respiratory failure with hypoxia; N17.9 Acute kidney failure, unspecified; J44.1 Chronic obstructive pulmonary disease with (acute) exacerbation; I25.10 Atherosclerotic heart disease of native coronary artery without angina pectoris; Z95.5 Presence of coronary angioplasty implant and graft; M05.9 Rheumatoid arthritis with rheumatoid factor, unspecified; G20.A1 Parkinson's disease without dyskinesia, without mention of fluctuations; E78.5 Hyperlipidemia, unspecified; R00.0 Tachycardia, unspecified; E86.0 Dehydration; E11.22 Type 2 diabetes mellitus with diabetic chronic kidney disease; I12.9 Hypertensive chronic kidney disease with stage 1 through stage 4 chronic kidney disease, or unspecified chronic kidney disease; N18.9 Chronic kidney disease, unspecified; Z79.84 Long term (current) use of oral hypoglycemic drugs; Z79.51 Long term (current) use of inhaled steroids; R07.9 Chest pain, unspecified; Z87.891 Personal history of nicotine dependence; F33.41 Major depressive disorder, recurrent, in partial remission; E03.9 Hypothyroidism, unspecified; F12.11 Cannabis abuse, in remission; F10.11 Alcohol abuse, in remission
CPT/HCPCS: 36415; 36416; 36600; 71045; 71275; 80053; 80061; 82607; 82746; 82805; 82962; 83036; 83540; 83550; 83605; 83735; 83880; 84100; 84145; 84443; 84484; 85025; 85378; 87400; 87637; 93005; 94640; 94664; 94760; 96372; 96374; 99285; J0612; J1650; J1940; J2470; J2919; J3490; J7030; J7613; J7614; J7626; J7644

== ENCOUNTER 2024-05-25 16:13 | Emergency (ER) | payer MEDICARE, MEDICAID, SELFPAY ==
[2024-05-25 16:32] VITALS: BP 180/91; PULSE 102; RESP 19; TEMP 36.3; O2SAT 89; BMI 25.7
--- NOTE | 2024-05-25 17:02 | ECG_ITS ---
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
[2024-05-25 17:15] VITALS: BP 124/65; PULSE 88; RESP 16; TEMP 36.8; O2SAT 95
== END 2024-05-25 18:05 | disposition left against medical advice (07) ==
PROVIDERS: Emergency Provider Family Medicine; PCP Family Medicine
DX: Z53.21 Procedure and treatment not carried out due to patient leaving prior to being seen by health care provider (principal)
CPT/HCPCS: 93005

== ENCOUNTER → 2024-06-26 08:36 | Outpatient (BNVA) | payer MEDICARE, MEDICAID, SELFPAY | PROVIDERS: PCP Family Medicine; Visit Provider Nurse Practitioner Family | DX: R39.9 Unspecified symptoms and signs involving the genitourinary system (principal) | CPT/HCPCS: 81000 ==

== ENCOUNTER → 2024-07-25 13:42 | Outpatient (BNVA) | payer MEDICARE, SELFPAY | PROVIDERS: PCP Family Medicine; Visit Provider Specialist | DX: G24.4 Idiopathic orofacial dystonia (principal) | CPT/HCPCS: 64616; J0585; J9999 ==

== ENCOUNTER → 2024-07-28 14:27 | Outpatient (BNVA) | payer MEDICARE, SELFPAY | PROVIDERS: PCP Family Medicine; Visit Provider Family Medicine | DX: N18.2 Chronic kidney disease, stage 2 (mild) (principal) | CPT/HCPCS: 80069; 85025 ==

== ENCOUNTER → 2024-08-18 08:21 | Outpatient (BNVA) | payer MEDICARE, SELFPAY | PROVIDERS: PCP Family Medicine; Visit Provider Internal Medicine Nephrology | DX: N18.31 Chronic kidney disease, stage 3a (principal) | CPT/HCPCS: 80048 ==

== ENCOUNTER → 2024-09-12 14:05 | Outpatient (BNVA) | payer MEDICARE, SELFPAY | PROVIDERS: PCP Family Medicine | DX: R39.9 Unspecified symptoms and signs involving the genitourinary system (principal); N39.0 Urinary tract infection, site not specified | CPT/HCPCS: 81000; 87086 ==

== ENCOUNTER → 2024-10-21 09:42 | Outpatient (BNVA) | payer MEDICARE, SELFPAY | PROVIDERS: PCP Family Medicine; Visit Provider Family Medicine | DX: E11.9 Type 2 diabetes mellitus without complications (principal) | CPT/HCPCS: 80053; 83036 ==

== ENCOUNTER → 2024-10-23 10:04 | Outpatient (BNVA) | payer MEDICARE, SELFPAY | PROVIDERS: PCP Family Medicine; Visit Provider Specialist | DX: G24.4 Idiopathic orofacial dystonia (principal) | CPT/HCPCS: 64612; 99213; J0585; J9999 ==

== ENCOUNTER 2024-10-27 12:39 | Outpatient (CLI) | payer MEDICARE, SELFPAY ==
--- NOTE | 2024-10-27 13:00 | MM_ITS ---
WS: [id number] RIGHT 3D TOMOSYNTHESIS DIGITAL MAMMOGRAPHY WITH CAD CLINICAL INFORMATION: 6 month f/u R breast HISTORY: 6-month follow-up COMPARISON: 05/08/2024 TECHNIQUE: 3 views of the right breast were obtained. FINDINGS: Scattered fibroglandular densities of the right breast. Vascular calcification. Dystrophic calcifications RIGHT breast with oil cysts similar in appearance. Ultrasound is pending of the previously described abnormality. ULTRASOUND BREAST RIGHT TECHNIQUE: Ultrasound right breast focused area of concern. CLINICAL INFORMATION: 6 month f/u R breast FINDINGS: Ultrasound RIGHT breast 8 o'clock position 7 cm from the nipple. Previously described subcutaneous nodule today measures slightly smaller 6 x 1 mm compared to 6 x 3 mm. This has a benign appearance and decrease in size is reassuring. Recommend return to annual screening mammography. MM/MM diag RT tomosynthesis [id number] IMPRESSION: DENSITY: There are scattered areas of fibroglandular density. BI-RADS: 2 - Benign. FOLLOW UP: 1 Year Follow-up Recommend return to annual screening mammography.
--- NOTE | 2024-10-27 13:30 | US_ITS ---
WS: [id number] RIGHT 3D TOMOSYNTHESIS DIGITAL MAMMOGRAPHY WITH CAD CLINICAL INFORMATION: 6 month f/u R breast HISTORY: 6-month follow-up COMPARISON: 05/08/2024 TECHNIQUE: 3 views of the right breast were obtained. FINDINGS: Scattered fibroglandular densities of the right breast. Vascular calcification. Dystrophic calcifications RIGHT breast with oil cysts similar in appearance. Ultrasound is pending of the previously described abnormality. ULTRASOUND BREAST RIGHT TECHNIQUE: Ultrasound right breast focused area of concern. CLINICAL INFORMATION: 6 month f/u R breast FINDINGS: Ultrasound RIGHT breast 8 o'clock position 7 cm from the nipple. Previously described subcutaneous nodule today measures slightly smaller 6 x 1 mm compared to 6 x 3 mm. This has a benign appearance and decrease in size is reassuring. Recommend return to annual screening mammography. US/US breast RT limited* [id number] IMPRESSION: DENSITY: There are scattered areas of fibroglandular density. BI-RADS: 2 - Benign. FOLLOW UP: 1 Year Follow-up Recommend return to annual screening mammography.
== END 2024-10-27 12:40 | disposition home or self-care (01) ==
LOC: RAD 12:42
PROVIDERS: PCP Family Medicine; Visit Provider Family Medicine
DX: N60.01 Solitary cyst of right breast (principal)
CPT/HCPCS: 76642; 77061; G0279

== ENCOUNTER → 2024-11-04 14:16 | Outpatient (BNVA) | payer MEDICARE, SELFPAY | PROVIDERS: PCP Family Medicine; Visit Provider Family Medicine | DX: Z11.4 Encounter for screening for human immunodeficiency virus [HIV] (principal); Z11.59 Encounter for screening for other viral diseases | CPT/HCPCS: 86803; 87389 ==

== ENCOUNTER → 2024-12-01 17:50 | Outpatient (BNVA) | payer MEDICARE, SELFPAY | PROVIDERS: PCP Family Medicine | DX: R35.0 Frequency of micturition (principal) | CPT/HCPCS: 81000; 87086 ==

== ENCOUNTER → 2024-12-11 15:34 | Outpatient (BNVA) | payer MEDICARE, SELFPAY | PROVIDERS: PCP Family Medicine; Visit Provider Internal Medicine Cardiovascular Disease | DX: I25.10 Atherosclerotic heart disease of native coronary artery without angina pectoris (principal); I10 Essential (primary) hypertension; E78.2 Mixed hyperlipidemia; Z79.02 Long term (current) use of antithrombotics/antiplatelets; Z95.5 Presence of coronary angioplasty implant and graft; Z87.891 Personal history of nicotine dependence | CPT/HCPCS: 99214 ==

== ENCOUNTER → 2025-01-27 11:47 | Outpatient (BNVA) | payer MEDICARE, SELFPAY | PROVIDERS: PCP Family Medicine; Visit Provider Family Medicine | DX: N18.32 Chronic kidney disease, stage 3b (principal); E03.9 Hypothyroidism, unspecified; I10 Essential (primary) hypertension; N18.1 Chronic kidney disease, stage 1 | CPT/HCPCS: 80069; 82306; 82310; 83970; 84439; 84443; 85025; 87086 ==

== ENCOUNTER → 2025-03-17 09:50 | Outpatient (BNVA) | payer MEDICARE, SELFPAY | PROVIDERS: PCP Family Medicine; Visit Provider Nurse Practitioner | DX: R39.9 Unspecified symptoms and signs involving the genitourinary system (principal) | CPT/HCPCS: 81000; 87086 ==

== ENCOUNTER → 2025-03-23 12:53 | Outpatient (BNVA) | payer MEDICARE, SELFPAY | PROVIDERS: PCP Family Medicine; Visit Provider Internal Medicine Rheumatology | DX: R76.89 Other specified abnormal immunological findings in serum (principal); M05.79 Rheumatoid arthritis with rheumatoid factor of multiple sites without organ or systems involvement; M54.2 Cervicalgia; Z79.899 Other long term (current) drug therapy; Z71.85 Encounter for immunization safety counseling | CPT/HCPCS: 99214 ==

== ENCOUNTER 2025-03-23 20:52 | Emergency (ER) | payer MEDICARE, SELFPAY ==
[2025-03-23 21:19] VITALS: BP 113/67; PULSE 82; RESP 18; TEMP 36.8; O2SAT 95; BMI 25.9
--- OUTSIDE RECORDS SUMMARY | 2025-03-23 21:43 | XMS_ITS | Encounter Summary ---
Author Organization [facility] Address [address] [place] [address] Care Team Providers Care Laboratory Supervisor Name Role Phone Non-Staff, Physician Primary Care Provider Unava ilable Encounter Details Date Type Department Care Team (Latest Contact Info) Description 06/18/2000 Outpatient Historical [facility] Michael Boyd NO ADDRESS ON FILE Chronic airway obstruction, not elsewhere classified (CMS/HCC) (Primary Dx); Unspecified essential hypertension; Allergic rhinitis due to other allergen Social History Tobacco Use Types Packs/Day Years Used Date Smoking Tobacco: Never Assessed Comments Unknown Sex and Gender Information Value Date Recorded Sex Assigned at Not on file 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
--- OUTSIDE RECORDS SUMMARY | 2025-03-23 21:43 | XMS_ITS | Encounter Summary ---
Author Organization [facility] Address [address] [place] [address] Care Team Providers Care Hat And Cap Opener Name Role Phone Non-Staff, Physician Primary Care Provider Unava ilable Reason for Referral * Outpatient Services (Routine) - Closed Specialty Diagnoses / Procedures Referred By Ros harman Referred To Contact Diagnoses Screening mammogram Procedures MAMMO SCREENING BILAT Chaka Frye MD NO ADDRESS ON FILE Referral ID Status Reason Start Date Expiration Date Visits Re quested Visits Authorized [id number] Closed 03/08/2010 09/04/2010 1 1 HAND Encounter Details Date Type Department Care Team (Late st Contact Info) Description 03/08/2010 Ancillary Orders [facility] Imaging External Read [address] [place] [address] Chaka Frye MD NO ADDRESS ON FILE Screening mammogram Social History Tobacco Use Types Packs/Day Years Used Date Smoking Tobacco: Former Cigarettes 3 43 0 09/07/1964 - 09/08/2007 Alcohol Use Standard Drinks/Week Comments No 0 (1 standard drink = 0.6 oz pur e alcohol) Comments No Sex and Gender Information Value Date Recorded Sex Assigned at Not on file 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 No significant change is seen. I would recommend follow-up screening in one year. *Addendum dictated on 04/14/10 KB/eamishel Narrative 03/14/2010 11:07 AM FARM HAND Bilateral Mammogram Reason for Exam: Screening Comparison: No prior exam(s) for comparison. Findings: Bilateral CC and MLO views were obtained. This examination was reviewed with the aid of a computer-aided detection system(CAD). The breast tissue density is fatty. No suspicious findings. Procedure Note Toy Dale MD / Iona Mcintosh MD - 04/18/2010 Bilateral Mammogram Reason for Exam: Screening Comparison: No prior exam(s) for comparison. Findings: Bilateral CC and MLO views were obtained. This examination was reviewed with the aid of a computer-aided detectionsystem(CAD). The breast tissue density is fatty. No suspicious findings. us Chaka Frye MD MAMMO ORDERABLES Edited Re sult - Final documented in this encounter Visit Diagnoses Diagnosis Screening mammogram Other screening mammogram documented in this encounter Care Teams Hat And Cap Opener Relationship Specialty Start Date End Date Non-Staff, Physician NO ADDRESS ON FILE PCP - General 07/24/13 documented as of this encounter
--- OUTSIDE RECORDS SUMMARY | 2025-03-23 21:43 | XMS_ITS | Encounter Summary ---
Author Organization [facility] Address [address] [place] [address] Care Team Providers Care Tankman Name Role Phone Non-Staff, Physician Primary Care Provider Unava ilable Reason for Referral * PET Scan (Urgent) - Closed Specialty Diagnoses / Procedures Referred By Ros harman Referred To Contact Radiology Diagnoses Lung nodule Procedures PET TUMOR IMG W CT SKL BSE MID THG Cristhian Escalante NP [address] [place] [address] Phone: tel: fax: [facility] Nuclear Medicine [address] [place] [address] Phone: tel: fax: Referral ID Status Reason Start Date Expiration Date Visits Requested Visits Authorized [id number] Closed Interventional Scheduling (SGF) 09/13/2018 10/12/2018 1 1 Encounter Details Date Type Department Care Team (Late st Contact Info) Description 09/13/2018 Ancillary Orders [facility] Pre-Registration [place] CALL TO MAKE APPOINTMENT ONLY [address] [place] [address] Cristhian Escalante NP [address] [place] [address] Lung nodule Social History Tobacco Use Types Packs/Day Years Used Date Smoking Tobacco: Former Cigarettes 1 43 0 06/08/1968 - 06/08/2011 Smokeless Tobacco: Never Alcohol Use Standard Drinks/Week Comments No 0 (1 standard drink = 0.6 oz pur e alcohol) Comments No Sex and Gender Information Value Date Recorded Sex Assigned at Not on file 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 1. The patient's right lung upper lobe nodule demonstrates a relative increase in metabolic activity compared to normal lung and less than blood pool in a subcentimeter lesion, indeterminate but of concern for possible neoplasia. 2. Consider histologic evaluation. 3. No evidence of local or distant metastasis. Narrative 09/18/2018 4:11 PM CDT Radionuclide PET Metabolic Tumor Imaging with CT Attenuation Correction and Anatomic Localization from Skull Base to Mid Thigh: Radiopharmaceutical: [id number] Dose: 12.1 mCi right antecubital IV Time of Injection: 1153 hrs BMI: Not available/68 kg Clinical Indication: Initial treatment strategy to evaluate pulmonary nodule for staging examination. FDG (Z-13-[id number]) PET imaging was performed at 1241 hrs approximately 40 minutes following intravenous infusion of the radiopharmaceutical agent using an integrated 16-slice PET/CT scanner. A noncontrast CT scan was performed for attenuation correction of PET data and for anatomic localization. No contrast was administered. Imaging was performed from the skull base to mid thigh levels with subsequent reconstruction of full trunk, orthogonal view slices in transverse, sagittal, and coronal projections which were reviewed along with dynamic multiimage planar and non attenuation corrected sagittal views. Blood glucose at the time of tracer injection was 95 mg/dl in this diabetic patient with normal biodistribution of tracer. The quality of this examination is acceptable with regards to count density, processed images, data display and lack of important artifacts (including but not limited to motion and attenuation artifacts). No previous PET/CT examination. Head/Neck: No focal abnormality of metabolic activity or lymphadenopathy. Thorax: Mediastinal blood pool maximum SUV is 2.37. A small multilevel nodule is present in the right upper lobe measuring 0.9 x 0[address] series 3 slice 99 demonstrating mild increase of metabolic activity visually with a maximum SUV value of 1.09 compared to adjacent normal lung tissue of 0.39 there are no other obvious pulmonary nodules or focal increase of metabolic activity. No pathologic lymph nodes are observed in the mediastinum or elsewhere in the thorax. Abdomen/Pelvis: Liver maximum SUV is 2.90. There is no focal abnormality of metabolic activity in solid organs or other soft tissue structures. No lymphadenopathy. Adrenal glands appear normal. Musculoskeletal: Orthopedic hardware is present in the lumbosacral spine. There is no focal increase of metabolic activity in bone or muscle. Procedure Note Brett Chan MD - 09/18/2018 Radionuclide PET Metabolic Tumor Imaging with CT Attenuation Correction and Anatomic Localization from Skull Base to Mid Thigh: Radiopharmaceutical: [id number]-89-[id number] Dose: 12.1 mCi right antecubital IV Time of Injection: 1153 hrs BMI: Not available/68 kg Clinical Indication: Initial treatment strategy to evaluate pulmonary nodule for staging examination. FDG ([id number]-60-[id number]) PET imaging was performed at 1241 hrs approximately 40 minutes following intravenous infusion of the radiopharmaceutical agent using an integrated 16-slice PET/CT scanner. A noncontrast CT scan was performed for attenuation correction of PET data and for anatomic localization. No contrast was administered. Imaging was performed from the skull base to mid thigh levels with subsequent reconstruction of full trunk, orthogonal view slices in transverse, sagittal, and coronal projections which were reviewed along with dynamic multiimage planar and non attenuation corrected sagittal views. Blood glucose at the time of tracer injection was 95 mg/dl in this diabetic patient with normal biodistribution of tracer. The quality of this examination is acceptable with regards to count density, processed images, data display and lack of important artifacts (including but not limited to motion and attenuation artifacts). No previous PET/CT examination. Head/Neck: No focal abnormality of metabolic activity or lymphadenopathy. Thorax: Mediastinal blood pool maximum SUV is 2.37. A small multilevel nodule is present in the right upper lobe measuring 0.9 x 0[address] series 3 slice 99 demonstrating mild increase of metabolic activity visually with a maximum SUV value of 1.09 compared to adjacent normal lung tissue of 0.39 there are no other obvious pulmonary nodules or focal increase of metabolic activity. No pathologic lymph nodes are observed in the mediastinum or elsewhere in the thorax. Abdomen/Pelvis: Liver maximum SUV is 2.90. There is no focal abnormality of metabolic activity in solid organs or other soft tissue structures. No lymphadenopathy. Adrenal glands appear normal. Musculoskeletal: Orthopedic hardware is present in the lumbosacral spine. There is no focal increase of metabolic activity in bone or muscle. IMPRESSION: Abnormal examination. 1. The patient's right lung upper lobe nodule demonstrates a relative increase in metabolic activity compared to normal lung and less than blood pool in a subcentimeter lesion, indeterminate but of concern for possible neoplasia. 2. Consider histologic evaluation. 3. No evidence of local or distant metastasis. us Cristhian Escalante NP PE ORDERABLES Final Result documented in this encounter Visit Diagnoses Diagnosis Lung nodule Solitary pulmonary nodule Lung nodule Solitary pulmonary nodule documented in this encounter Care Teams Tankman Relationship Specialty Start Date End Date Non-Staff, Physician NO ADDRESS ON FILE PCP - General 07/24/13 documented as of this encounter
--- OUTSIDE RECORDS SUMMARY | 2025-03-23 21:43 | XMS_ITS | Clinical Summary ---
Author Organization [facility] Address [address] [place] [address] Care Team Providers Care Tinware Lithograph Press Operator Name Role Phone Rajinder Pereira DO Primary Care Provider Unavaila ble Allergies Active Allergy Reactions Criticality Noted Date Comments Diony Inhibitors Cough Low 05/14/2009 Cephalexin Abdominal Pain Low 09/18/2008 Oxycodone-Acetaminophen Nausea and Vomiting Low Ropinirole Itching Low 09/18/2008 Medications METFORMIN 500 mg Oral Tab Take 500 mg by mouth daily. Active FISH OIL 1,000 mg Oral Cap Take 1,000 mg by mouth daily. Active NAPROXEN 500 mg Oral Tab Take 500 mg by mouth 1 time daily as needed. Active LIPITOR 80 mg Oral Tab Take 80 mg by mouth Daily LATE. Active PLAVIX 75 mg Oral Tab Take 75 mg by mouth daily. Active CLONAZEPAM 1 mg Oral Tab Take 1 mg by mouth 2 times daily. Active AMLODIPINE 5 mg Oral Tab Take 5 mg by mouth daily. Active OXCARBAZEPINE 300 mg Oral Tab Take 300 mg by mouth daily. Active OMEPRAZOLE 20 mg Oral CpDR Take 20 mg by mouth daily. Active ASPIRIN 81 mg Oral Tab Take 81 mg by mouth daily. Active ISOSORBIDE MONONITRATE 20 mg Oral Tab Take 20 mg by mouth daily. Active LISINOPRIL 20 mg Oral Tab Take 20 mg by mouth daily. Active HYDROCHLOROTHIAZ YENNY 25 mg Oral Tab Take 25 mg by mouth daily. Active NITROQUICK 0.[address] 0.4 mg under tongue every 5 minutes as needed for Chest Pain. Active METOPROLOL TARTRATE 50 mg Oral Tab Take 50 mg by mouth 2 times daily. Active SYMBICORT 160-4.5 mcg/Actuation Inhalation HFAA Take 2 Puffs by inhalation 2 times daily. Active COMBIVENT IN Take 2 Puffs by inhalation. Active ESZOPICLONE 3 mg Oral Tab Take 3 mg by mouth nightly as needed. Active POTASSIUM CHLORIDE PO Take 50 mg by mouth 2 times daily. 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 Obesity 07/22/2010 Tobacco abuse 08/26/2009 Overview (10/21/2020): 1.5 ppd (05/29) Breast CA Screening 08/13/2009 Overview (10/21/2020): Mammo: 06/26; 04/27 (repeat Diag mammo in 6 months); 2008 Colon cancer screening 08/13/2009 Overview (10/21/2020): Colonoscopy: 10/23 (No polyps, diverticulosis) Degeneration of lumbar or lumbosacral interverte bral disc 06/04/2009 Overview (10/21/2020): MRI L spine (05/27): multi-level degenerative disk bulging with facet joint hypertrophy Has been followed by [facility] HTN (hypertension) 04/30/2009 Chronic back pain 04/30/2009 Bipolar disorder 04/30/2009 Overview (10/21/2020): Followed by [facility], Claire Mosquera Coronary atherosclerosis of igiug[place] coronary jono ry 09/29/2008 Postsurgical percutaneous tr ansluminal coronary angioplasty status 09/29/2008 DM (diabetes mellitus) 09/29/2008 Essential hypertension, benign 09/29/2008 Hypercholesterolemia 09/29/2008 Carotid bruit 09/29/2008 Depression 09/29/2008 COPD (chronic obstructive pulmonary disease) 08/2008 CAD (Coronary Artery Disease), S/P PTCI x 2 (200 6, 2007) 09/18/2008 Overview (10/21/2020): Followed by Dr. Torres ([facility]) Type II diabetes mellitus 09/18/2008 Overview (10/21/2020): A1C: 6.1 (05/29); 6.3 (02/25); 6.3 (09/25); 6.9 (10/24); 6.4 (07/25); 6.7 (02/23); 6.8 (07/24); 6.8 (04/25) Microalbumin: 09/25 (normal); 04/26 (borderline); 04/25 (Normal) Retinal exam: 12/25 (normal, [facility]); 07/24 (Normal, Dr Noonan) DAPHNE (Obstructive Sleep Apnea), on CPAP 9 RLS (restless legs syndrome) 09/18/2008 Hyperlipidemia 09/18/2008 Overview (10/21/2020): LDL: 91 (09/25); 67 (07/25); 81 (04/25) HDL: 33 (09/25); 31 (07/25): 33 (04/25) T (07/25) Insomnia 09/18/2008 Encounters Date Type Department Care Team Description 12/23/2024 External Device Data STL ABSTRACTION Provider, Abstract from Last 3 Months Immunizations Immunization Administration Dates Next Due (PNEUMOVAX 23)(50 YRS UP) PN EUMOCOCCAL POLYSACCHARIDE (PPV23) 0.5 ML, IM 01/29/2008 (TDVAX)(7 YRS UP) TETANUS AN D DIPHTHERIA TOXOIDS, ADSORBED (2 LF OF TETANUS TOXOID AND 2 LF OF DIPHTHERIA TOXOID), 0.5ML (PF), IM 10/14/2005 Hepatitis B Vaccine 12/14/2003,06/23/2003,2003 Influenza Seasonal Unspecifi ed Formulation IM 01/15/2012,02/21/2010,01/28/2009 Pneumococcal conjugate, unsp ecified formulation 01/29/2008 Family History Medical History Relation Name Comments Coronary Artery Disease Brother 1 Diabetes Brother 1 Hypertension Brother 1 Coronary Artery Disease Brother 2 Hypertension Brother 2 Hypertension Brother 3 Heart Attack Brother 4 Other Brother 4 Hypertension Brother 5 Rubio Other Brother 6 Edilberto Heart Disease Brother 7 Edilberto Hypertension Brother 8 Edilberto Other Brother 9 Ton Heart Disease Brother 10 Ton Heart Failure Brother 11 Pos[place] Heart Disease Brother 12 [place] Hypertension Brother 13 Posada Heart Disease Brother 14 Rubio Diabetes Brother 15 Rubio Heart Disease Father Heart Failure Father Hypertension Father Heart Disease Mother Heart Failure Mother Hypertension Mother Other Mother Heart Disease Sister 1 Hypertension Sister 1 Hypertension Sister 2 Hypertension Sister 3 Heart Disease Sister 4 Jagruti Hypertension Sister 5 Jgaruti Heart Disease Sister 6 Rafia Heart Disease Sister 7 Mayela Hypertension Sister 8 Mayela Breast Cancer Neg Hx Colon Cancer Neg Hx Relation Name Status Comments Brother 1 Alive Brother 2 Alive Brother 3 Alive Brother 4 Brother 5 Rubio Brother 6 Edilberto Brother 7 Edilberto Brother 8 Edilberto Brother 9 Ton Brother 10 Ton Brother 11 Posada Brother 12 Posada Brother 13 Posada Brother 14 Rubio Brother 15 Rubio Brother 16 Ton Brother 17 Edilberto Alive Brother 18 Posada Brother 19 Rubio Alive Father Mother Sister 1 Alive Sister 2 Alive Sister 3 Alive Sister 4 Jagruti Sister 5 Jagruti Sister 6 Rafia Sister 7 Mayela Sister 8 Mayela Sister 9 Rafia Alive Sister 10 Mayela Alive Sister 11 Jagruti Alive Social History Tobacco Use Types Packs/Day Years Used Date Smoking Tobacco: Former Cigarettes 1 Q uit: 06/08/2011 Smokeless Tobacco: Never Comments:quit 09/08/07 - smok ed 3 ppd for 43 years Alcohol Use Standard Drinks/Week Comments No 0 (1 standard drink = 0.6 oz pur e alcohol) Comments No Sex and Gender Information Value Date Recorded Sex Assigned at Not on file 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 Gender Identity Not on file Sexual Orientation Not on file Last Filed Vital Signs Vital Sign Reading Time Taken Comments Blood Pressure 106/64 09/29/2008 2:00 PM CDT Pulse 66 09/29/2008 2:00 PM CDT Temperature - - Respiratory Rate 14 09/29/2008 2:00 PM CDT Oxygen Saturation 95% 09/29/2008 2:00 PM CDT Inhaled Oxygen Concentration - - Weight 68 kg (150 lb) 08/15/2018 2:52 PM CDT Height 167.6 cm (5' 6 ) 08/15/2018 2:52 PM CDT Body Mass Index 24.21 08/15/2018 2:52 PM CDT Plan of Treatment Health Maintenance Due Date Last Done Comments DIABETES ANNUAL FOOT EXAM 1964 DIABETES ANNUAL RETINAL EXAM 1964 DIABETES MICROALBUMIN ANNUAL SCREEN 1964 LDL CHOLESTEROL ANNUAL 1964 ZOSTER VACCINE (1 of 2) 1996 DTAP/TDAP/TD VACCINES (1 - Tdap) 10/15/2005 10/15/19 06 OSTEOPOROSIS SCREENING 10/09/2011 RSV VACCINE (60+ or ) (1 - 1-dose 75+ series) 2021 DIABETES HBA1C Q 6 MONTHS 11/29/2023 05/31/2023 INFLUENZA VACCINE (#1) 2024 2, 02/21/2010, 01/28/2009 PNEUMOCOCCAL VACCINE 50+ YEARS Completed 0 01/11/2023, 01/29/2008, 01/29/2008, Additional history exists Insurance MEDICARE HMO Care Teams Tinware Lithograph Press Operator Relationship Specialty Start Date End Date Rajinder Pereira DO PCP - General 06/08/16
--- OUTSIDE RECORDS SUMMARY | 2025-03-23 21:43 | XMS_ITS | Encounter Summary ---
Author Organization [facility] Address [address] [place] [address] Care Team Providers Care Adjunct Instructor Name Role Phone Non-Staff, Physician Primary Care Provider Unava ilable Encounter Details Date Type Department Care Team (Latest Contact Info) Description 12/27/2005 Outpatient Historical [facility] Cardiac Stereoptician [address] [place] [address] Adiel Valero MD [address] [address] Coronary Atherosclerosis of [place] Coronary Artery (Primary Dx) Social History Tobacco Use Types Packs/Day Years Used Date Smoking Tobacco: Never Assessed Comments Unknown Sex and Gender Information Value Date Recorded Sex Assigned at Not on file 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 Gender Identity Not on file Sexual Orientation Not on file documented as of this encounter Plan of Treatment Not on file documented as of this encounter Procedures Procedure Name Priority Date/Time Associated Diagnosis Comments PT AND APTT Routine 12/27/2005 8:36 AM CDT CBC WITHOUT DIFFERENTIAL Routine 12/27/2005 8:36 AM CDT BASIC METABOLIC PANEL Routine 12/27/2005 8:36 AM CDT documented in this encounter Results * CBC WITHOUT DIFFERENTIAL (12/27/2005 8:36 AM CDT) WBC 6.2 4.8 - 10.8 K/ul INTERFACE SYSTEM RBC 5.06 4.20 - 5.40 Mil/ul INTERFACE SYSTEM HEMOGLOBIN 14.7 12.0 - 16.0 g/dL INTERFACE SYSTEM HEMATOCRIT 45.0 36.0 - 46.0 % INTERFACE SYSTEM MCV 88.9 84.0 - 103.0 Fl INTERFACE SYSTEM MCH 29.1 27.0 - 34.0 pg INTERFACE SYSTEM MCHC 32.7 30.0 - 35.0 g/dL INTERFACE SYSTEM RDW 14.2 11.0 - 14.5 % INTERFACE SYSTEM PLATELETS 166 140 - 440 K/ul INTERFACE SYSTEM MPV 10.1 8.9 - 12.8 Fl INTERFACE SYSTEM NEUTROPHILS 56.4 42.2 - 75.2 % INTERFACE SYSTEM LYMPHOCYTES 34.1 24.0 - 44.0 % INTERFACE SYSTEM MONOCYTES 7.6 2.0 - 10.0 % INTERFACE SYSTEM EOSINOPHILS 1.6 0.0 - 7.0 % INTERFACE SYSTEM BASOPHILS 0.3 0.0 - 1.0 % INTERFACE SYSTEM NEUTROPHIL ABSOLUTE 3.5 2.0 - 8.0 K/uL INTERFACE SYSTEM LYMPHOCYTE ABSOLUTE 2.1 1.2 - 4.0 K/ul INTERFACE SYSTEM MONOCYTE ABSOLUTE 0.5 0.1 - 0.6 K/ul INTERFACE SYSTEM EOSINOPHIL ABSOLUTE 0.1 0.0 - 0.7 K/ul INTERFACE SYSTEM BASOPHILS ABSOLUTE 0.0 0.0 - 0.2 K/ul INTERFACE SYSTEM 12/27/2005 8:36 AM CDT us Adiel Valero MD HEMATOLOGY ORDERABLES Final Resu lt INTERFACE SYSTEM Refer to clinic/hospital department * BASIC METABOLIC PANEL (12/27/2005 8:36 AM CDT) GLUCOSE 107 70 - 110 mg/dL INTERFACE SYSTEM BUN 14 7 - 17 mg/dL INTERFACE SYSTEM CREATININE 0.9 0.7 - 1.2 mg/dL INTERFACE SYSTEM SODIUM 140 136 - 145 mEq/L INTERFACE SYSTEM POTASSIUM 4.2 3.5 - 5.0 mEq/L INTERFACE SYSTEM CHLORIDE 110 95 - 110 mEq/L INTERFACE SYSTEM CO2 25 22 - 32 mmol/l INTERFACE SYSTEM ANION GAP 9 9 - 20 mEq/L INTERFACE SYSTEM OSMOLALITY, CALCULATED 289 275 - 295 mOsm/Kg INTERFACE SYSTEM CALCIUM 9.3 8.4 - 10.5 mg/dL INTERFACE SYSTEM 12/27/2005 8:36 AM CDT Adeil Valero MD CHEMISTRY ORDERABLES Final Resul t Performing Organization Address [facility] Phone Number INTERFACE SYSTEM Refer to clinic/hospital department * PT AND APTT (12/27/2005 8:36 AM CDT) PROTIME 13.9 12.6 - 14.9 Secs INTERFACE SYSTEM Comment: As of 05 note change in normal range. INR 1.0 INTERFACE SYSTEM Comment: Expected Values for INR: DVT/PE Goal INR 2.5; range 2.0 - 3.0 Valve Replacement Tissue Goal INR 2.5; range 2.0 - 3.0 Mechanical Goal INR 3.0; range 2.5 - 3.5 POST-AR Goal INR 2.5; range 2.0 - 3.0 or Goal 3.0; range 2.5 - 3.5 Atrial Fibrillation Goal INR 2.5; range 2.0 - 3.0 Ischemic Stroke Goal INR 2.5; range 2.0 - 3.0 For additional information see Guidelines for Anticoagulation available from the pharmacy Summer Petersen Pharm D. PTT 34.2 21.5 - 34.4 Secs INTERFACE SYSTEM Comment: Therapeutic Range: Hi-level PE/DVT heparin protocol 90.1 -110 sec Lo-level PE/DVT heparin protocol 75.1 - 95 sec Cardiac Heparin Protocol 85.1 - 100 sec Neuro Heparin Protocol 70.1 - 85 sec As of 05/10/05 note change in APTT Normal Range. 12/27/2005 8:36 AM CDT Adiel Valero MD HEMATOLOGY ORDERABLES Final Resu lt Performing Organization Address [facility] Phone Number INTERFACE SYSTEM Refer to clinic/hospital department documented in this encounter Visit Diagnoses Diagnosis Coronary atherosclerosis of coquille coronary artery- Primary documented in this encounter Care Teams Adjunct Instructor Relationship Specialty Start Date End Date Non-Staff, Physician NO ADDRESS ON FILE PCP - General 07/24/13 documented as of this encounter
--- OUTSIDE RECORDS SUMMARY | 2025-03-23 21:43 | XMS_ITS | Encounter Summary ---
Author Organization [employer] [facility] Address [address] [place] [address] Care Team Providers Care Technical Support Intern Name Role Phone Non-Staff, Physician Primary Care Provider Unava ilable Encounter Details Date Type Department Care Team (Latest Contact Info) Description 01/19/2000 Outpatient Historical [facility] Rajinder Yanes MD [address] [place] [address] Bronchitis, not specified as acute or chronic (Primary Dx); Tobacco use disorder Social History Tobacco Use Types Packs/Day Years Used Date Smoking Tobacco: Never Assessed Comments Unknown Sex and Gender Information Value Date Recorded Sex Assigned at Not on file 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
--- OUTSIDE RECORDS SUMMARY | 2025-03-23 21:43 | XMS_ITS | Encounter Summary ---
Author Organization [facility] Address [address] [place] [address] Care Team Providers Care Multimedia Instructional Designer Name Role Phone Non-Staff, Physician Primary Care Provider Unava ilable Encounter Details Date Type Department Care Team (Latest Contact Info) Description 10/26/1998 Outpatient Historical [facility] Tyree Flores MD NO ADDRESS ON FILE Late effect arm fx (Primary Dx) Social History Tobacco Use Types Packs/Day Years Used Date Smoking Tobacco: Never Assessed Comments Unknown Sex and Gender Information Value Date Recorded Sex Assigned at Not on file Legal Sex Female 3:33 AM RISK MANAGEMENT 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
--- OUTSIDE RECORDS SUMMARY | 2025-03-23 21:43 | XMS_ITS | Encounter Summary ---
Author Organization [facility] Address [address] [place] [address] Care Team Providers Care Supervisor Cabinetmaker Name Role Phone Non-Staff, Physician Primary Care Provider Unava ilable Encounter Details Date Type Department Care Team (Latest Contact Info) Description 05/14/2000 Outpatient Historical [facility] Michael Boyd NO ADDRESS ON FILE Chronic airway obstruction, not elsewhere classified (CMS/HCC) (Primary Dx) Social History Tobacco Use Types Packs/Day Years Used Date Smoking Tobacco: Never Assessed Comments Unknown Sex and Gender Information Value Date Recorded Sex Assigned at Not on file Legal Sex Female 3:33 AM BULB PACKER Gender Identity Not on file Sexual Orientation Not on file documented as of this encounter Plan of Treatment Not on file documented as of this encounter Visit Diagnoses Diagnosis Chronic airway obstruction, not elsewhere classified (CMS/HCC)- Primary Chronic airway obstruction, not elsewhere classified documented in this encounter Care Teams Supervisor Cabinetmaker Relationship Specialty Start Date End Date Non-Staff, Physician NO ADDRESS ON FILE PCP - General 07/24/13 documented as of this encounter
--- OUTSIDE RECORDS SUMMARY | 2025-03-23 21:43 | XMS_ITS | Encounter Summary ---
Author Organization [facility] Address [address] [place] [address] Care Team Providers Care Grinder Chipper Name Role Phone Non-Staff, Physician Primary Care Provider Unava ilable Encounter Details Date Type Department Care Team (Latest Contact Info) Description 07/12/1999 Outpatient Historical [facility] Tyree Flores MD NO ADDRESS ON FILE Late effect arm fx (Primary Dx) Social History Tobacco Use Types Packs/Day Years Used Date Smoking Tobacco: Never Assessed Comments Unknown Sex and Gender Information Value Date Recorded Sex Assigned at Not on file Legal Sex Female 3:33 AM OPERATIONS ADMINISTRATIVE ASSISTANT Gender Identity Not on file Sexual Orientation Not on file documented as of this encounter Plan of Treatment Not on file documented as of this encounter Visit Diagnoses Diagnosis Late effect arm fx- Primary Late effect of fracture of upper extremities documented in this encounter Care Teams Grinder Chipper Relationship Specialty Start Date End Date Non-Staff, Physician NO ADDRESS ON FILE PCP - General 07/24/13 documented as of this encounter
--- OUTSIDE RECORDS SUMMARY | 2025-03-23 21:43 | XMS_ITS | Encounter Summary ---
Author Organization [facility] Address [address] [place] [address] Care Team Providers Care Civil Service Clerk Name Role Phone Non-Staff, Physician Primary Care Provider Unava ilable Encounter Details Date Type Department Care Team (Late st Contact Info) Description 10/14/2007 Outpatient Historical [facility] [place] [address] [place] [address] Bart-Maura Edwards, [facility] TECH [address] [facility] [address] [place] [address] Social History Tobacco Use Types Packs/Day Years Used Date Smoking Tobacco: Never Assessed Comments Unknown Sex and Gender Information Value Date Recorded Sex Assigned at Not on file Legal Sex Female 3:33 AM 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
--- OUTSIDE RECORDS SUMMARY | 2025-03-23 21:43 | XMS_ITS | Encounter Summary ---
Author Organization [facility] Address [address] [place] [address] Care Team Providers Care Jacquard Plate Maker Name Role Phone Non-Staff, Physician Primary Care Provider Unava ilable Encounter Details Date Type Department Care Team (Late st Contact Info) Description 10/26/1998 Outpatient Historical [facility] [address] [place] [id number] Tong Chopra, DO [address] [address] Headache(784.0) (Primary Dx); Other seborrheic keratosis Social History Tobacco Use Types Packs/Day Years Used Date Smoking Tobacco: Never Assessed Comments Unknown Sex and Gender Information Value Date Recorded Sex Assigned at Not on file Legal Sex Female 3:33 AM SIFTER AND MILLER Gender Identity Not on file Sexual Orientation Not on file documented as of this encounter Plan of Treatment Not on file documented as of this encounter Visit Diagnoses Diagnosis Headache(784.0)- Primary Headache Other seborrheic keratosis documented in this encounter Care Teams Jacquard Plate Maker Relationship Specialty Start Date End Date Non-Staff, Physician NO ADDRESS ON FILE PCP - General 07/24/13 documented as of this encounter
--- OUTSIDE RECORDS SUMMARY | 2025-03-23 21:43 | XMS_ITS | Encounter Summary ---
Author Organization [facility] Address [address] [place] [address] Care Team Providers Care Freight And Passenger Agent Name Role Phone Non-Staff, Physician Primary Care Provider Unava ilable Encounter Details Date Type Department Care Team (Latest Contact Info) Description 06/20/2000 Outpatient Historical [facility] Michael Boyd NO ADDRESS ON FILE Urticaria, unspecified (Primary Dx) Social History Tobacco Use Types Packs/Day Years Used Date Smoking Tobacco: Never Assessed Comments Unknown Sex and Gender Information Value Date Recorded Sex Assigned at Not on file Legal Sex Female 3:33 AM HOUSE WIRER HELPER Gender Identity Not on file Sexual Orientation Not on file documented as of this encounter Plan of Treatment Not on file documented as of this encounter Visit Diagnoses Diagnosis Urticaria, unspecified- Primary documented in this encounter Care Teams Freight And Passenger Agent Relationship Specialty Start Date End Date Non-Staff, Physician NO ADDRESS ON FILE PCP - General 07/24/13 documented as of this encounter
--- OUTSIDE RECORDS SUMMARY | 2025-03-23 21:43 | XMS_ITS | Encounter Summary ---
Author Organization [facility] Address [address] [place] [address] Care Team Providers Care Boiler Reliner Name Role Phone Non-Staff, Physician Primary Care Provider Unava ilable Encounter Details Date Type Department Care Team (Latest Contact Info) Description 06/15/1998 Outpatient Historical [facility] Tyree Flores MD NO ADDRESS ON FILE Pain in limb (Primary Dx) Social History Tobacco Use Types Packs/Day Years Used Date Smoking Tobacco: Never Assessed Comments Unknown Sex and Gender Information Value Date Recorded Sex Assigned at Not on file Legal Sex Female 3:33 AM CLIP BAKER Gender Identity Not on file Sexual Orientation Not on file documented as of this encounter Plan of Treatment Not on file documented as of this encounter Visit Diagnoses Diagnosis Pain in limb- Primary Pain in soft tissues of limb documented in this encounter Care Teams Boiler Reliner Relationship Specialty Start Date End Date Non-Staff, Physician NO ADDRESS ON FILE PCP - General 07/24/13 documented as of this encounter
--- OUTSIDE RECORDS SUMMARY | 2025-03-23 21:43 | XMS_ITS | Encounter Summary ---
Author Organization [facility] Address [address] [place] [address] Care Team Providers Care Barge Hand Name Role Phone Non-Staff, Physician Primary Care Provider Unava ilable Encounter Details Date Type Department Care Team (Latest Contact Info) Description 06/05/2000 Outpatient Historical [facility] Michael Boyd NO ADDRESS ON FILE Screening for malignant neoplasm of the cervix (Primary Dx); Screening for nephropathy; Family history of malignant neoplasm of gastrointestinal tract; Unspecified essential hypertension Social History Tobacco Use Types Packs/Day Years Used Date Smoking Tobacco: Never Assessed Comments Unknown Sex and Gender Information Value Date Recorded Sex Assigned at Not on file Legal Sex Female 3:33 AM PASSENGER CAR UPHOLSTERER APPRENTICE Gender Identity Not on file Sexual Orientation Not on file documented as of this encounter Plan of Treatment Not on file documented as of this encounter Visit Diagnoses Diagnosis Screening for malignant neoplasm of the cervix- Primary Screening for nephropathy Family history of malignant neoplasm of gastrointestinal tract Unspecified essential hypertension documented in this encounter Care Teams Barge Hand Relationship Specialty Start Date End Date Non-Staff, Physician NO ADDRESS ON FILE PCP - General 07/24/13 documented as of this encounter
--- OUTSIDE RECORDS SUMMARY | 2025-03-23 21:43 | XMS_ITS | Encounter Summary ---
Author Organization [facility] Address [address] [place] [address] Care Team Providers Care Industrial Service Technician Name Role Phone Non-Staff, Physician Primary Care Provider Unava ilable Encounter Details Date Type Department Care Team (Latest Contact Info) Description 06/22/2003 Outpatient Historical [facility] Travis, Chaka Chavarria MD [address] [phone] SURGERY FOLLOWUP, UNSPEC (Primary Dx) Social History Tobacco Use Types Packs/Day Years Used Date Smoking Tobacco: Never Assessed Comments Unknown Sex and Gender Information Value Date Recorded Sex Assigned at Not on file Legal Sex Female 3:33 AM LAND 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
--- OUTSIDE RECORDS SUMMARY | 2025-03-23 21:43 | XMS_ITS | Encounter Summary ---
Author Organization [facility] Address [address] [place] [address] Care Team Providers Care Healthcare Representative Name Role Phone Non-Staff, Physician Primary Care Provider Unava ilable Encounter Details Date Type Department Care Team (Latest Contact Info) Description 05/27/2003 Outpatient Historical [facility] Travis, Chaka Chavarria MD [address] [address] Residual hemorrhoid tags (Primary Dx); OTHER NEOPLASM NOS Social History Tobacco Use Types Packs/Day Years Used Date Smoking Tobacco: Never Assessed Comments Unknown Sex and Gender Information Value Date Recorded Sex Assigned at Not on file Legal Sex Female 3:33 AM POWER LINEWORKER Gender Identity Not on file Sexual Orientation Not on file documented as of this encounter Plan of Treatment Not on file documented as of this encounter Visit Diagnoses Diagnosis Residual hemorrhoid tags- Primary Residual hemorrhoidal skin tags 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
--- OUTSIDE RECORDS SUMMARY | 2025-03-23 21:43 | XMS_ITS | Encounter Summary ---
Author Organization [facility] Address [address] [place] [address] Care Team Providers Care Lead Caster Helper Name Role Phone Non-Staff, Physician Primary Care Provider Unava ilable Encounter Details Date Type Department Care Team (Latest Contact Info) Description 06/15/1998 Outpatient [facility] [address] [place] [phone] Tong Chopra, DO [address] [address] Female stress incontinence (Primary Dx) Social History Tobacco Use Types Packs/Day Years Used Date Smoking Tobacco: Never Assessed Comments Unknown Sex and Gender Information Value Date Recorded Sex Assigned at Not on file Legal Sex Female 3:33 AM NEWS ASSISTANT Gender Identity Not on file Sexual Orientation Not on file documented as of this encounter Plan of Treatment Not on file documented as of this encounter Visit Diagnoses Diagnosis Female stress incontinence- Primary documented in this encounter Care Teams Lead Caster Helper Relationship Specialty Start Date End Date Non-Staff, Physician NO ADDRESS ON FILE PCP - General 07/24/13 documented as of this encounter
--- OUTSIDE RECORDS SUMMARY | 2025-03-23 21:43 | XMS_ITS | Encounter Summary ---
Author Organization [facility] Address [address] [place] [address] Care Team Providers Care Slip Caster Name Role Phone Non-Staff, Physician Primary Care Provider Unava ilable Encounter Details Date Type Department Care Team (Latest Contact Info) Description 08/03/1998 Outpatient Historical [facility] Tyree Flores MD NO ADDRESS ON FILE Late effect arm fx (Primary Dx) Social History Tobacco Use Types Packs/Day Years Used Date Smoking Tobacco: Never Assessed Comments Unknown Sex and Gender Information Value Date Recorded Sex Assigned at Not on file Legal Sex Female 3:33 AM CLOTH FINISHING RANGE BACK TENDER Gender Identity Not on file Sexual Orientation Not on file documented as of this encounter Plan of Treatment Not on file documented as of this encounter Visit Diagnoses Diagnosis Late effect arm fx- Primary Late effect of fracture of upper extremities documented in this encounter Care Teams Slip Caster Relationship Specialty Start Date End Date Non-Staff, Physician NO ADDRESS ON FILE PCP - General 07/24/13 documented as of this encounter
--- OUTSIDE RECORDS SUMMARY | 2025-03-23 21:43 | XMS_ITS | Clinical Summary ---
[facility] Address [address] [place] [address] Care Team Providers Care Bracer Name Role Phone Non-Staff, Physician Primary Care Provider Unava ilable Allergies Active Allergy Reactions Criticality Noted Date Comments Diony Inhibitors Cough Low 05/14/2009 Cephalexin Abdominal Pain Low 09/18/2008 Oxycodone-Acetaminophen Nausea and Vomiting Low Ropinirole Itching Low 09/18/2008 Medications FISH OIL 1,000 mg Oral Cap Take 1,000 mg by mouth 2 times daily. 1 Active COMBIVENT IN Take 2 Puffs by inhalation 1 time daily as needed. 1 Active aspirin (VALDO) 81 mg Oral Tab Take 1 Tab by mouth daily. Active ACETAMINOPHEN/D IPHENHYDRAMINE (TYLENOL PM EXTRA STRENGTH ORAL) Take 1 Tab by mouth daily at bedtime. Active nitroglycerin (NITROSTAT) 0.[address] 1 Tab under tongue every 5 minutes as needed for Chest Pain. 30 Tab 2 2 Active metoprolol tartrate (LOPRESSOR) 50 mg Oral tablet Take 1 Tab by mouth 2 times daily. 60 Tab 5 2 Active lamoTRIgine (LAMICTAL) 200 mg Oral tablet Take 1 Tab by mouth daily. 30 Tab 3 2 Active potassium chloride SR (K-DUR) 20 mEq Oral tablet Take 0.5 Tabs by mouth 2 times daily. 30 Tab 6 2 Active citalopram (CELEXA) 20 mg Oral tablet Take 1 Tab by mouth daily. 30 Tab 5 2 Active losartan (COZAAR) 100 mg Oral tablet Take 1 Tab by mouth daily. This is to replace Hyzaar 30 Tab 5 2 Active meloxicam (MOBIC) 7.5 mg Oral tablet Take 1 Tab by mouth daily. 30 Tab 5 2 Active ARIPiprazole (ABILIFY) 2 mg Oral tablet Take 1 Tab by mouth daily. 30 Tab 3 2 Active budesonide-form oterol (SYMBICORT) 160-4.5 mcg/actuation Inhalation HFAA Take 2 Puffs by inhalation 2 times daily. 10.2 Gram 5 2 Active levothyroxine (SYNTHROID) 75 mcg Oral tablet Take 1 Tab by mouth daily molder foam rubber. 30 Tab 5 2 Active solifenacin (VESICARE) 5 mg Oral Tab Take 1 Tab by mouth daily. 30 Tab 5 2 Active albuterol-iprat ropium (COMBIVENT) 103-18 mcg/Actuation Inhalation Aero Take 2 Puffs by inhalation every 6 hours. 14.7 Gram 5 2 Active theophylline SR 12 hour (THEOCHRON) 300 mg Oral tablet Take 1 Tab by mouth every 12 hours. 60 Tab 5 2 Active omeprazole (PRILOSEC) 20 mg Oral CpDR Take 1 Cap by mouth 2 times daily. 60 Cap 5 2 Active metFORMIN (GLUCOPHAGE) 500 mg Oral tablet Take 1 Tab by mouth 2 times daily with meals. 60 Tab 5 2 Active eszopiclone (LUNESTA) 3 mg Oral Tab Take 1 Tab by mouth daily at bedtime. 30 Tab 3 2 Active HYDROcodone-diony taminophen (NORCO) 5-325 mg Oral tablet Take 1 Tab by mouth 2 times daily as needed for Pain, Moderate. 60 Tab 1 3 Active gabapentin (NEURONTIN) 800 mg Oral tablet Take 1 Tab by mouth 2 times daily. Take 2 tabs in the morning and 1 tab at night 90 Tab 5 3 Active amLODIPine (NORVASC) 5 mg Oral tablet Take 1 Tab by mouth daily. 30 Tab 5 3 Active atorvastatin (LIPITOR) 80 mg Oral tablet Take 1 Tab by mouth Daily LATE. 30 Tab 5 3 Active clopidogrel (PLAVIX) 75 mg Oral Tab Take 1 Tab by mouth Daily LATE. 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 Obesity 07/22/2010 Tobacco abuse 08/26/2009 Overview (05/21/2012): 1.5 ppd (05/29) Breast CA Screening 08/13/2009 Overview (07/01/2012): Mammo: 06/26; 04/27 (repeat Diag mammo in 6 months); 2008 Colon cancer screening 08/13/2009 Overview (03/03/2010): Colonoscopy: 10/23 (No polyps, diverticulosis) Degeneration of lumbar or lumbosacral interverte bral disc 06/04/2009 Overview (08/04/2010): MRI L spine (05/27): multi-level degenerative disk bulging with facet joint hypertrophy Has been followed by [facility] HTN (hypertension) 04/30/2009 Chronic back pain 04/30/2009 Bipolar disorder 04/30/2009 Overview (04/30/2009): [facility] CAD (Coronary Artery Disease), S/P PTCI x 2 (200 6, 2007) 09/18/2008 Overview (09/18/2011): Follow[facility] by Dr. Torres ([facility]) Type II diabetes mellitus 09/18/2008 Overview (05/22/2012): A1C: 6.1 (05/29); 6.3 (02/25); 6.3 (09/25); 6.9 (10/24); 6.4 (07/25); 6.7 (02/23); 6.8 (07/24); 6.8 (04/25) Microalbumin: 09/25 (normal); 04/26 (borderline); 04/25 (Normal) Retinal exam: 12/25 (normal, [facility]); 07/24 (Normal, Dr Noonan) DAPHNE (Obstructive Sleep Apnea), on CPAP 9 RLS (restless legs syndrome) 09/18/2008 Hyperlipidemia 09/18/2008 Overview (09/20/2011): LDL: 91 (09/25); 67 (07/25); 81 (04/25) HDL: 33 (09/25); 31 (07/25): 33 (04/25) T (07/25) Insomnia 09/18/2008 COPD (chronic obstructive pulmonary disease) 08/2008 Immunizations Immunization Administration Dates Next Due (PNEUMOVAX [...] Family History Medical History Relation Name Comments Heart Disease Brother 1 Posada Heart Failure Brother 1 Posada Hypertension Brother 1 Posada Diabetes Brother 2 Rubio Heart Disease Brother 2 Rubio Hypertension Brother 2 Rubio Heart Disease Brother 3 Edilberto Hypertension Brother 3 Edilberto Other Brother 3 Edilberto Heart Disease Brother 4 Ton Other Brother 4 Ton Heart Disease Father Heart Failure Father Hypertension Father Heart Disease Mother Heart Failure Mother Hypertension Mother Heart Disease Sister 1 Mayela Hypertension Sister 1 Mayela Heart Disease Sister 2 Jagruti Hypertension Sister 2 Jagruti Heart Disease Sister 3 Rafia Breast Cancer Neg Hx Colon Cancer Neg Hx Relation Name Status Comments Brother 1 Posada Brother 2 Rubio Alive Brother 3 Edilberto Alive Brother 4 Ton Father Mother Sister 1 Mayela Alive Sister 2 Jagruti Alive Sister 3 Rafia Alive Social History Tobacco Use Types Packs/Day Years Used Date Smoking Tobacco: Former Cigarettes 1 43 0 06/08/1968 - 06/08/2011 Smokeless Tobacco: Never Alcohol Use Standard Drinks/Week Comments No 0 (1 standard drink = 0.6 oz pur e alcohol) Comments No Sex and Gender Information Value Date Recorded Sex Assigned at Not on file Legal Sex Female 3:33 AM ACADEMIC PHYSICIAN Gender Identity Not on file Sexual Orientation Not on file Occupation Industry Job Start Date Job End Date Not on file Not on file Not on file Not on file Last Filed Vital Signs Vital Sign Reading Time Taken Comments Blood Pressure 142/70 07/12/2012 1:57 PM CDT Pulse 68 07/12/2012 1:57 PM CDT Temperature 36.7 C (98.1 F) 07/12/2012 1:57 PM CDT Respiratory Rate 20 07/12/2012 1:57 PM CDT Oxygen Saturation 94% 07/12/2012 1:57 PM CDT Inhaled Oxygen Concentration - - Weight 68 kg (150 lb) 08/15/2018 2:52 PM CDT Height 167.6 cm (5' 6 ) 08/15/2018 2:52 PM CDT Body Mass Index 24.21 08/15/2018 2:52 PM CDT Plan of Treatment Health Maintenance Due Date Last Done Comments DIABETES ANNUAL FOOT EXAM 1963 DIABETES ANNUAL RETINAL EXAM 1964 ZOSTER VACCINE (1 of 2) 1996 DTAP/TDAP/TD VACCINES (1 - Tdap) 10/15/2005 10/15/19 06 PNEUMOCOCCAL VACCINE 50+ YEA RS (2 of 2 - PCV) 01/28/2009 01/29/2008, 01/29/2008 OSTEOPOROSIS SCREENING 10/09/2011 DIABETES MICROALBUMIN ANNUAL SCREEN 09/17/2012 09/18/2011, 05/12/2010, 04/30/2009 LDL CHOLESTEROL ANNUAL 09/17/2012 2, 07/21/2010, 04/30/2009, Additional history exists DIABETES HBA1C Q 6 MONTHS 11/18/20122012, 02/20/2012, 09/18/2011, Additional history exists RSV VACCINE (60+ or ) (1 - 1-dose 75+ series) 2021 INFLUENZA VACCINE (#1) 2024 2, 02/21/2010, 01/28/2009 Procedures Procedure Name Priority Date/Time Associated Diagnosis Comments HEMOGLOBIN A1C Routine 05/21/2012 2:30 PM ACADEMIC PHYSICIAN Type II diabetes mellitus MICROALBUMIN/CREATI NINE RATIO, RANDOM UR Routine 09/18/2011 4:14 PM CDT DM w/o complication type II (CMS/HCC) LIPID PANEL Routine 09/18/2011 4:14 PM CDT DM w/o complication type II (CMS/HCC) from Last 3 Months or Most Recently Relevant to Health Maintenance Results * (ABNORMAL) HEMOGLOBIN A1C (05/21/2012 2:30 PM ACADEMIC PHYSICIAN) HEMOGLOBIN A1C 6.1(H) 4.0 - 6.0 % [facility] Comment: This test was performed on a [employer] II instrument using HPLC methodology. Blood specimen (specimen) 05/21/2012 2:30 PM ACADEMIC PHYSICIAN 05/21/2012 2:31 PM ACADEMIC PHYSICIAN Chaka Frye MD CHEMISTRY ORDERABLES Final Result Performing Organization Address [facility] de Phone Number [facility] CLIA# [id number] [address] [place] [id number] * MICROALBUMIN/CREATININE RATIO, RANDOM UR (09/18/2011 4:14 PM CDT) MICROALBUMIN URINE 0.7 MG/DL [facility] Creatinine, Urine 136 MG/DL [facility] MICROALBUMIN/CREA T RATIO, UR 5.1 MCG/MG CREAT. [facility] Comment: NORMAL: <30 MCG/MG CREAT MICROALBUMINURIA: 30-300 MCG/MG CREAT CLINICAL ALBUMINURIA: >300 MCG/MG CREAT Blood specimen (specimen) 09/18/2011 4:14 PM CDT 09/18/2011 4:15 PM CDT Chaka Frye MD URINE ORDERABLES Final Res ult Performing Organization Address [facility] Co de Phone Number [facility] CLIA# [id number] [place] [address] * (ABNORMAL) LIPID PANEL (09/18/2011 4:14 PM CDT) CHOLESTEROL 153 100 - 200 MG/DL [facility] TRIGLYCERIDE 145 0 - 150 MG/DL [facility] HDL 33(L) 40 - 60 MG/DL [facility] LDL CALCULATED 91 58 - 100 MG/DL [facility] Comment: CALCULATED LDL REFERENCE: < 100 Optimal 100 - 129 Near Optimal 130 - 159 Borderline High > 160 High Risk CHOL/HDL RATIO 4.64(H) 3.27 - 4.44 RATIO [facility] KIMN Blood specimen (specimen) 09/18/2011 4:14 PM CDT 09/18/2011 4:15 PM CDT Chaka Frye MD CHEMISTRY ORDERABLES Final Result Performing Organization Address City/State/[facility] Co de Phone Number [facility] CLIA# [id number] [address] [place] [address] from Last 3 Months or Most Recently Relevant to Health Maintenance Insurance MEDICAID [place] MEDICAID DENTAL ENVOLVE VISION H[employer] GOLD PLUS O [facility] MCR Advance Directives For more information, please contact: [phone] * Full Code (Latest Code Status on File) Date Activated Date Inactivated Comments 06/26/2011 8:28 AM 06/27/2011 2:01 AM * Full Code Date Activated Date Inactivated Comments 11/14/2010 9:15 AM 11/15/2010 2:01 AM * Full Code Date Activated Date Inactivated Comments 11/14/2010 8:58 AM 11/14/2010 9:15 AM Care Teams Bracer Relationship Specialty Start Date End Date Non-Staff, Physician NO ADDRESS ON FILE PCP - General 07/24/13
--- OUTSIDE RECORDS SUMMARY | 2025-03-23 21:43 | XMS_ITS | Encounter Summary ---
Author Organization 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
--- OUTSIDE RECORDS SUMMARY | 2025-03-23 21:43 | XMS_ITS | Encounter Summary ---
Author Organization [facility] Address [address] [place] [address] Care Team Providers Care Maintenance Mgr Name Role Phone Non-Staff, Physician Primary Care Provider Unava ilable Encounter Details Date Type Department Care Team (Latest Contact Info) Description 11/11/1999 Outpatient Historical [facility] Michael Boyd NO ADDRESS ON FILE Counseling NOS(V65.40) (Primary Dx) Social History Tobacco Use Types Packs/Day Years Used Date Smoking Tobacco: Never Assessed Comments Unknown Sex and Gender Information Value Date Recorded Sex Assigned at Not on file 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
--- OUTSIDE RECORDS SUMMARY | 2025-03-23 21:43 | XMS_ITS | Encounter Summary ---
Author Organization [facility] Address [address] [place] [address] Care Team Providers Care Teacher Tutor Name Role Phone Non-Staff, Physician Primary Care Provider Unava ilable Encounter Details Date Type Department Care Team (Latest Contact Info) Description 09/08/2005 Outpatient Historical [facility] [address] [place] [id number] Tristian Hernandez, MEDTRONICS TECHNICIAN [address], [place] [id number] Cor Athrscl-Uns Vessel (Primary Dx); Unspecified Essential Hypertension Social History Tobacco Use Types Packs/Day Years Used Date Smoking Tobacco: Never Assessed Comments Unknown Sex and Gender Information Value Date Recorded Sex Assigned at Not on file Legal Sex Female 3:33 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
--- NOTE | 2025-03-23 21:54 | ED_ITS ---
HPI - Female Genitourinary 2 General: Chief complaint: Urogenital-Female Stated complaint: Boo when she Pee's Time Seen by Provider: 03/23/25 21:49 History of Present Illness: 79-year-old female with a history of yanni otine dependence, pulmonary nodule, coronary artery disease, type 2 diabetes, rheumatoid arthritis, hyperlipidemia, hypertension, hypothyroidism, trigeminal neuralgia, COPD, chronic kidney disease and chronic hypoxemic respiratory failure on 3 L nasal cannula at all times who presents to the emergency room with dysuria. She said this been going on about a week and she has been taking Azo. It just got worse today. She is having some pelvic pain as well. No altered mental status. No fevers. No nausea or vomiting. No chest pain. Related Data Previous Rx's ?Medication ?Instructions ?Recorded diabetic shoes with 3 pairs inserts #1 ea 05/22/22 TLSO brace #1 ea 11/30/22 nebulizers #1 ea 04/14/24 albuterol sulfate 2.5 mg/3 mL 2.5 mg (3 mL) inhalation QID PRN 06/25/24 (0.083 %) solution for nebulization shortness of breat h or wheezing #180 mL budesonide 160 mcg-glycopyr 9 2 inh inhalation BID 30 days #10.7 06/26/24 mcg-formot 4.8 mcg/actuation HFA grams inhaler (Breztri Aerosphere) nitroglycerin 0.4 mg sublingual 0.4 mg sublingual Q5M PRN Chest 07/01/24 tablet (Nitrostat) Pain #100 tabs albuterol sulfate 90 mcg/actuation 2 puff inhalation Q ID PRN 12/15/24 aerosol inhaler (Ventolin HFA) Shortness Of Breath #8. 5 grams hydroxyzine HCl 25 mg tablet 25 mg PO .HS PRN sleep #3 0 tabs 01/20/25 fluticasone propionate 50 2 spray intranasal DAILY 90 days 01/27/25 mcg/actuation nasal #16 grams spray,suspension (Flonase Allergy Relief) losartan 25 mg tablet 25 mg PO DAILY #90 tabs 01/14 08/08 metoprolol tartrate 25 mg tablet 25 mg PO BID@0900,210 0 #180 tabs 01/27/25 levothyroxine 100 mcg tablet 100 mcg PO DAILY thyroid #90 tabs 01/28/25 doxycycline hyclate 100 mg tablet 100 mg PO BID 7 days #14 tabs 02/11/25 prednisone 20 mg tablet 20 mg PO BID 5 days #10 tabs 02/11/25 amlodipine 10 mg tablet See Rx Instructions .Route 1 05/03/24 .COMPLEX #90 tabs duloxetine 30 mg capsule,delayed 30 mg PO DAILY #90 ca ps 03/05/25 release duloxetine 60 mg capsule,delayed 60 mg PO DAILY #90 ca ps 03/05/25 release mirtazapine 30 mg tablet (Remeron) 30 mg PO .HS #90 ta bs 03/05/25 atorvastatin 80 mg tablet (Lipitor) 80 mg PO DAILY cho lesterol #90 tabs 03/13/25 carbidopa 25 mg-levodopa 100 mg 2 tab PO TID #180 tabs 03/13/25 tablet cetirizine 10 mg tablet 10 mg PO DAILY allergies #30 tabs 03/13/25 clopidogrel 75 mg tablet See Rx Instructions .Route 1 05/13/24 .COMPLEX #90 tabs fenofibrate 54 mg tablet 54 mg PO DAILY Cholesterol # 90 tabs 03/13/25 gabapentin 800 mg tablet 800 mg PO TID Neuropathy #90 tabs 03/13/25 hydralazine 50 mg tablet 50 mg PO BID #180 tabs 03/13 metformin 500 mg tablet 500 mg PO DAILY #90 tabs ondansetron 4 mg disintegrating 4 mg PO Q8H PRN nausea and 03/13/25 tablet vomiting #30 tabs ropinirole 3 mg tablet 3 mg PO .qhs #90 tabs valbenazine 80 mg capsule 80 mg PO DAILY #30 caps 02/15 12/08 (Ingrezza) phenazopyridine 100 mg tablet 100 mg PO TID PRN pain 6 doses #6 03/17/25 (Pyridium) tabs ciprofloxacin HCl 500 mg tablet 500 mg PO BID 10 days #20 tabs 03/23/25 leflunomide 10 mg tablet 10 mg PO DAILY #90 tabs 12/08 phenazopyridine 100 mg tablet 100 mg PO Q8H 6 doses #6 tabs 03/23/25 (Pyridium) Allergies Allergy/AdvReac Type Severity Reaction Status Date / Time cephalexin (From Invaluable) Allergy Mild ADR-Itching Verified 03/23/25 13:13 lamotrigine (From Lamictal) Allergy ALGY-Rash Verified 03/23/25 13:13 Review of Systems 2 Narrative: Constitutional symptoms: Negative except as documented in HPI. Skin symptoms: Negative except as documented in HPI. Eye symptoms: Negative except as documented in HPI. ENMT symptoms: Negative except as documented in HPI. Respiratory symptoms: Negative except as documented in HPI. Cardiovascular symptoms: Negative except as documented in HPI. Gastrointestinal symptoms: Negative except as documented in HPI. Genitourinary symptoms: Negative except as documented in HPI. Musculoskeletal symptoms: Negative except as documented in HPI. Neurologic symptoms: Negative except as documented in HPI. Psychiatric symptoms: Negative except as documented in HPI. Endocrine symptoms: Negative except as documented in HPI. PFSH ED 2 PFSH: Medical History (Updated 03/23/25 @ 23:30 by Gabi Stoner MD) Enrolled in chronic care management Wheezing Nicotine dependence, cigarettes, in remission Cyst of breast, right, benign solitary Hip arthritis SS-A antibody positive Incidental pulmonary nodule, > 3mm and < 8mm Allergic rhinitis due to allergen Alcohol use disorder in remission Cannabis use disorder, mild, in sustained remission, abuse Amphetamine use disorder, moderate, in sustained remission Coronary artery disease involving [place] coronary artery of [place] heart without angina pectoris Patient with stents High risk medication use Seropositive rheumatoid arthritis of multiple sites Type 2 diabetes mellitus with stage 3b chronic kidney disease, without long-term current use of insulin Mixed hyperlipidemia Primary hypertension Acquired hypothyroidism Hyponatremia Major depressive disorder, recurrent, in partial remission Trigeminal neuralgia Psychiatric care Rheumatoid arthritis ZAY positive Dyspnea on exertion Chronic kidney disease (CKD) Chronic obstructive pulmonary disease Tardive dyskinesia Bipolar disorder, in partial remission, most recent episode manic Surgical History Hx of bilateral cataract extraction History of colonoscopy with polypectomy (~04/20/20) 2017 History of coronary angioplasty with insertion of stent 2006: 2 stents. 2008: 2 stents. History of hand surgery Repair right thumb fracture History of back surgery (01/17/13) History of bilateral breast reduction surgery History of bilateral tubal ligation History of dilation and curettage (~1982) History of bladder surgery (~1989) Vaginal Urethral sling with possible anchors . Performed by Dr. Salas at [facility] [place]. History of hemorrhoidectomy History of cholecystectomy History of vaginal hysterectomy Still has ovaries. Performed in [place], [place]. Performed due to bleeding. 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 Skin: Warm, dry. Head: Normocephalic, atraumatic. Neck: Supple, trachea midline. Eye: Extraocular movements are intact. Ears, nose, mouth and throat: mucosa moist. Cardiovascular: Regular, Normal peripheral perfusion. Respiratory: Lungs are clear to auscultation, respirations are non-labored, breath sounds are equal, Symmetrical chest wall expansion. Gastrointestinal: Soft, some suprapubic tenderness to palpation, Non distended Musculoskeletal: Normal ROM, no deformity. Neurological: Alert and oriented, No focal neurological deficit observed. Psychiatric: Cooperative, appropriate mood & affect. Course 2 Vital Signs: Vital signs: Vital Signs Temperature 98.3 F 03/23/25 21:19 Pulse Rate 71 03/23/25 23:09 Respiratory Rate 18 03/23/25 21:19 Blood Pressure 117/80 03/23/25 23:09 Pulse Oximetry 96 03/23/25 23:09 Oxygen Delivery Me thod Room Air 03/23/25 23:09 Oxygen Flow Rate 3 03/23/25 21:19 MDM - Female Medical Decision Making Medical decision making Patient's reason for coming to the emergency room: Dysuria. Social determinants: Retired. I reviewed the patient's medical record. 79-year-old female with a history of nicotine dependence, pulmonary nodule, coronary artery disease, type 2 diabetes, rheumatoid arthritis, hyperlipidemia, hypertension, hypothyroidism, trigeminal neuralgia, COPD, chronic kidney disease and chronic hypoxemic respiratory failure on 3 L nasal cannula I reviewed the patient's current home meds Patient had a codeine prescription in the last 12 months but no other chronic narcotics. Alternate historians: None Differential diagnosis: including but not limited to and based on the above HPI, review of systems and physical exam: Orders placed to evaluate differential diagnosis based on the above differential, HPI and physical exam Lab Review: Laboratory results were reviewed and interpreted by myself the emergency room physician. No leukocytosis. No anemia. Mild increase in her BUN and creatinine at 21 and 1.7. Her baseline creatinine is usually around 1.3. Urinalysis is positive for infection with greater than 100 whites. 3+ leukocyte esterase. Positive nitrate. However no bacteria were seen Assessment of risk: Level of risk: Moderate risk patient. She has multiple comorbidities Hospitalization considerations: No indication for admission. No signs of sepsis. Reexamination: Patient remained stable. No increased work of breathing. No altered mental status. No focal motor deficits. Assessment and plan: Urinary tract infection Dehydration Acute on chronic renal insufficiency ? IV Cipro and IV normal saline bolus in the emergency room. - Discharged home - Discussed plan with patient. Answered any questions. - Evaluation and treatment of this problem were appropriate in the emergency setting. Lab Data 03/23/25 22:20 03/23/25 22:20 Laboratory Results WBC 7.14 10^3/uL (3.29-11.43) 03/23/25 22:20 RBC 4.02 10^6/uL (3.85-5.65) 03/23/25 22:20 Hgb 11.20 g/dL (11.27-16.99) L 03/23/25 22:20 Hct 36.6 % (36-47) 03/23/25 22:20 MCV 91.0 fl (85-98) 03/23/25 22:20 MCH 27.9 pg (27-33) 03/23/25 22:20 MCHC 30.6 g/dL (30-55) 03/23/25 22:20 RDW 15.0 % (12.1-15.1) 03/23/25 22:20 Plt Count 215 10^3/cmm (157-399) 03/23/25 22:20 MPV 9.5 fL (7.4-10.4) 03/23/25 22:20 Neut % (Auto) 66.9 % 03/23/25 22:20 Lymph % (Auto) 20.2 % 03/23/25 22:20 [place] % (Auto) 11.5 % 03/23/25 22:20 Eos % (Auto) 0.7 % 03/23/25 22:20 Baso % (Auto) 0.6 % 03/23/25 22:20 Neut # (Auto) 4.78 10^3/uL (1.8-7.7) 03/23/25 22:20 Lymph # (Auto) 1.4 10^3/uL (0.8-4.8) 03/23/25 22:20 [place] # (Auto) 0.8 10^3/uL (0.2-0.9) 03/23/25 22:20 Eos # (Auto) 0.1 10^3/uL (0.0-0.8) 03/23/25 22:20 Baso # (Auto) 0.0 10^3/uL (0.0-0.1) 03/23/25 22:20 Nucleated RBC % (auto) 0 % 03/23/25 22:20 Nucleated RBCs # 0.0 /100WBC 03/23/25 22:20 Sodium 138 mmol/L (136-145) 03/23/25 22:20 Potassium 4.5 mmol/L (3.5-5.1) 03/23/25 22:20 Chloride 103 mmol/L (98-107) 03/23/25 22:20 Carbon Dioxide 23 mmol/L (22-29) 03/23/25 22:20 Anion Gap 16.5 (5-19) 03/23/25 22:20 BUN 21 mg/dL (8-23) 03/23/25 22:20 Creatinine 1.7 mg/dL (0.5-0.9) H 03/23/25 22:20 GFR Calculation Not Reportable 03/23/25 22:20 Glucose 128 mg/dL (65-115) H 03/23/25 22:20 Calculated Osmolality 291 mOsm/kg (285-295) 03/23/25 22:20 Calcium 8.8 mg/dL (8.5-10.5) 03/23/25 22:20 Total Bilirubin 0.3 mg/dL (0.15-1.2) 03/23/25 22:20 AST 18 U/L (0-32) 03/23/25 22:20 ALT < 5 U/L (0-33) 03/23/25 22:20 Alkaline Phosphatase 54 U/L (35-105) 03/23/25 22:20 Total Protein 6.9 g/dL (6.6-8.7) 03/23/25 22:20 Albumin 3.9 g/dL (3.5-5.2) 03/23/25 22:20 Globulin 3.0 g/dL (1.3-4.6) 03/23/25 22:20 Urine Color [place] (Yellow) A 03/23/25 22:10 Urine Appearance Turbid (CLEAR) A 03/23/25 22:10 Urine pH 5.0 (5-7) 03/23/25 22:10 Ur Specific [place] 1.024 (1.005-1.030) 03/23/25 22:10 Urine Protein 4+ (Negative) A 03/23/25 22:10 Urine Glucose (UA) Negative (Normal) 03/23/25 22:10 Urine Ketones Negative (Negative) 03/23/25 22:10 Urine Blood 1+ (Negative) A 03/23/25 22:10 Urine Nitrate Positive (Negative) A 03/23/25 22:10 Urine Bilirubin 2+ (Negative) H 03/23/25 22:10 Urine Urobilinogen 1.0 mg/dL (Negative) 03/23/25 22:10 Ur Leukocyte Esterase 3+ (Negative) A 03/23/25 22:10 Urine RBC 5-10 /hpf (0-2) H 03/23/25 22:10 Urine WBC >100 /hpf (0-5) H 03/23/25 22:10 Ur Squamous Epith Cells 0-5 /hpf (0-5) 03/23/25 22:10 Amorphous Sediment Not Reportable 03/23/25 22:10 Urine Bacteria None seen /hpf (NONE) 03/23/25 22:10 Hyaline Casts 7.80 /lpf 03/23/25 22:10 No radiology studies performed this visit Discharge Plan Discharge Patient Disposition: Home Clinical Impression: Urinary tract infection, Dehydration, Acute on chronic renal insufficiency Condition: Stable Prescriptions: New ciprofloxacin HCl 500 mg tablet 500 mg PO BID 10 Days Qty: 20 0RF phenazopyridine [Pyridium] 100 mg tablet 100 mg PO Q8H Qty: 6 0RF No Action losartan 25 mg tablet 25 mg PO DAILY Qty: 90 2RF metoprolol tartrate 25 mg tablet 25 mg PO BID@0900,2100 Qty: 180 1RF fluticasone propionate [Flonase Allergy Relief] 50 mcg/actuation spray,suspension 2 spray intranasal DAILY 90 Days Qty: 16 2RF Rx Instructions: administer into each nostril Please dispense 90 day supply mirtazapine [Remeron] 30 mg tablet 30 mg PO .HS Qty: 90 0RF duloxetine 30 mg capsule,delayed release(DR/EC) 30 mg PO DAILY Qty: 90 0RF Rx Instructions: Take with the 60mg to equal 90mg duloxetine 60 mg capsule,delayed release(DR/EC) 60 mg PO DAILY Qty: 90 0RF prednisone 20 mg tablet 20 mg PO BID 5 Days Qty: 10 0RF doxycycline hyclate 100 mg tablet 100 mg PO BID 7 Days Qty: 14 0RF (DME) diabetic shoes with 3 pairs inserts See Rx Instructions .Route .MEDSUPPLY Qty: 1 0RF Rx Instructions: As directed HOME (DME) TLSO brace See Rx Instructions .Route .MEDSUPPLY Qty: 1 0RF Rx Instructions: As directed (DME) nebulizers [facility] [place] See Rx Instructions .Route Qty: 1 0RF Rx Instructions: Nebulizer with tubing kit to use as directed leflunomide 10 mg tablet 10 mg PO DAILY Qty: 90 3RF phenazopyridine [Pyridium] 100 mg tablet 100 mg PO TID PRN (Reason: pain) Qty: 6 0RF albuterol sulfate 2.5 mg /3 mL (0.083 %) solution for nebulization 2.5 mg inhalation QID PRN (Reason: shortness of breath or wheezing) Qty: 180 3RF Breztri Aerosphere 160-9-4.8 mcg/actuation HFA aerosol inhaler 2 inh inhalation BID 30 Days Qty: 10.7 6RF nitroglycerin [Nitrostat] 0.4 mg tablet, sublingual 0.4 mg SUBLINGUAL Q5M PRN (Reason: Chest Pain) Qty: 100 0RF Rx Instructions: do not exceed 3 doses per episode albuterol sulfate [Ventolin HFA] 90 mcg/actuation HFA aerosol inhaler 2 puff inhalation QID PRN (Reason: Shortness Of Breath) Qty: 8.5 2RF hydroxyzine HCl 25 mg tablet 25 mg PO .HS PRN (Reason: sleep) Qty: 30 3RF levothyroxine 100 mcg tablet 100 mcg PO DAILY Qty: 90 1RF amlodipine 10 mg tablet See Rx Instructions .ROUTE .COMPLEX Qty: 90 0RF Dose Instruction: TAKE 1 TABLET BY MOUTH IN THE MORNING Rx Instructions: TAKE 1 TABLET BY MOUTH IN THE MORNING clopidogrel 75 mg tablet See Rx Instructions .ROUTE .COMPLEX Qty: 90 3RF Dose Instruction: Take 1 tablet by mouth once daily Rx Instructions: Take 1 tablet by mouth once daily hydralazine 50 mg tablet 50 mg PO BID Qty: 180 3RF atorvastatin [Lipitor] 80 mg tablet 80 mg PO DAILY Qty: 90 3RF carbidopa-levodopa 25-100 mg tablet 2 tab PO TID Qty: 180 5RF Rx Instructions: 2 with breakfast and lunch, 1 with dinner cetirizine 10 mg tablet 10 mg PO DAILY Qty: 30 3RF fenofibrate 54 mg tablet 54 mg PO DAILY MDD 1 Qty: 90 1RF gabapentin 800 mg tablet 800 mg PO TID MDD 3 Qty: 90 3RF metformin 500 mg tablet 500 mg PO DAILY Qty: 90 3RF ondansetron 4 mg tablet,disintegrating 4 mg PO Q8H PRN (Reason: nausea and vomiting) Qty: 30 0RF ropinirole 3 mg tablet 3 mg PO .qhs Qty: 90 0RF Ingrezza 80 mg capsule 80 mg PO DAILY Qty: 30 3RF Discharge Orders: Discharge ED (Routine); Ordered 03/23/25 Ordered By: Gabi Stoner Referrals: Katina Monreal DO [Primary Care Provider, Family Practice] Discharge Diet: Usual diet Discharge Activity: Increase activity as tolerated Patient Instructions: Urinary Tract Infection in Older Adults (ED), Opioid Safety, Pain Management, Patient Portal & Janny Instructions Activity Restrictions/Additional Instructions: Thank you for choosing [facility] for your healthcare needs today. You have been screened and evaluated and felt safe for discharge. Health conditions do change or evolve sometimes and as such it is important that you follow up with your Primary Doctor to be re checked, 3-5 days is a general good time frame for follow up. 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
[2025-03-23 22:05] VITALS: BP 123/50; PULSE 83; O2SAT 96
[2025-03-23 22:30] LABS: Glucose Urine UA Negative (Normal); Nitrate Urine Positive (Negative); Specific Gravity, Urine 1.024 (1.005-1.030)
[2025-03-23 22:32] LABS: Hematocrit 36.6 % (36-47); Hemoglobin 11.20 g/dL (11.27-16.99); Mean Corpuscular HGB Conc 30.6 g/dL (30-55); Mean Corpuscular Hemoglobin 27.9 pg (27-33); Mean Corpuscular Volume 91.0 fl (85-98); Nucleated Red Blood Cells % 0 %; Platelet Count 215 10^3/cmm (157-399); Red Blood Count 4.02 10^6/uL (3.85-5.65); White Blood Count 7.14 10^3/uL (3.29-11.43)
[2025-03-23 22:51] LABS: Alanine Aminotransferase < 5 U/L (0-33); Albumin Level 3.9 g/dL (3.5-5.2); Alkaline Phosphatase 54 U/L (35-105); Anion Gap 16.5 (5-19); Aspartate Amino Transferase 18 U/L (0-32); Blood Urea Nitrogen 21 mg/dL (8-23); Calcium 8.8 mg/dL (8.5-10.5); Carbon Dioxide 23 mmol/L (22-29); Chloride 103 mmol/L (98-107); Globulin 3.0 g/dL (1.3-4.6); Glucose 128 mg/dL (65-115); Osmolality Calculated 291 mOsm/kg (285-295); Potassium 4.5 mmol/L (3.5-5.1); Sodium 138 mmol/L (136-145); Total Protein 6.9 g/dL (6.6-8.7)
[2025-03-23 23:09] VITALS: BP 117/80; PULSE 71; O2SAT 96
[2025-03-23 23:47] LABS: Lactic Sepsis W/Reflex 0.8 mmol/L (0.5-2.2)
[2025-03-24 00:48] VITALS: BP 127/55; PULSE 74; RESP 16; O2SAT 96
== END 2025-03-24 00:48 | disposition home or self-care (01) ==
PROVIDERS: Emergency Provider Emergency Medicine; PCP Family Medicine
DX: N39.0 Urinary tract infection, site not specified (principal); E86.0 Dehydration; Z79.02 Long term (current) use of antithrombotics/antiplatelets; Z79.84 Long term (current) use of oral hypoglycemic drugs; Z87.891 Personal history of nicotine dependence; I25.10 Atherosclerotic heart disease of native coronary artery without angina pectoris; E11.22 Type 2 diabetes mellitus with diabetic chronic kidney disease; I12.9 Hypertensive chronic kidney disease with stage 1 through stage 4 chronic kidney disease, or unspecified chronic kidney disease; N18.32 Chronic kidney disease, stage 3b; J44.9 Chronic obstructive pulmonary disease, unspecified; E78.2 Mixed hyperlipidemia
CPT/HCPCS: 36415; 80053; 80076; 81001; 82565; 83605; 85025; 85651; 86140; 86480; 87040; 87077; 87086; 87186; 96374; 99284; J0744; J7030